=== PATIENT | male | born 1945 | race Caucasian/White ===

== ENCOUNTER 2017-08-09 06:20 | Day surgery (SDC) | payer BC ==
[~2017-08-09] VITALS: Ht 167.6 cm; Wt 76.2 kg
[~2017-08-09 06:20] MED LIST: DIOVAN HCT 1601 EACH PO; INVOKANA100 MG PO; JANUVIA100 MG PO; LANTUS SOL100 UNIT/1 SUB-Q; METFORMIN HCL500 MG PO; PROTONIX40 MG PO; SIMVASTATIN40 MG PO
--- NOTE | 2017-08-09 08:51 | NUR ---
08[facility]09/17 0851 [facility] ARRIVED IN PACU SLEEPY AND RESPONSIVE TO TACTILE STIMULI. BLOOD SUGAR 88 ON ARRIVAL. ABD SOFT.
--- NOTE | 2017-08-09 09:25 | NUR ---
ICED WATER GIVEN. PT WILL WAKE TO LOUD RN VOICE AND THEN FALLS QUICKLY BACK TO SLEEP. CALL LIGHT W/IN REACH.
--- NOTE | 2017-08-09 10:27 | NUR ---
PT AWAKE WHEN RN ENTERS THE ROOM. PT REPORTS HE IS "PRETTY CLOSE" TO BEING AWAKE ENOUGH TO LISTEN TO DC INSTRUCTIONS. WILL CONTINUE TO MONITOR.
--- NOTE | 2017-08-09 10:48 | NUR ---
PT REPORTS "I THINK I'M READY TO GO". DC INSTRUCTIONS GIVEN. PT VERBALIZES UNDERSTANDING. PT STANDS @ THE BS AND IS STEADY ON HIS FEET. PT GETTING DRESSED. HIS SPOUSE IS CALLED. PT UP TO BR W/RN STANDBY. PT AMBULATES WELL AND DENIES DIZZINESS.
--- NOTE | 2017-08-09 11:38 | OR ---
[facility] [address] [place], [place] [address] Signed DATE OF OPERATION: 08/09/2017 SURGEON: Anil Li MD PREOPERATIVE DIAGNOSES: 1. Anemia. 2. History of peptic ulcer disease 1991. 3. Esophageal dysphagia. 4. Possible esophageal diverticulum. POSTOPERATIVE DIAGNOSES: 1. Unable to intubate esophagus, even with large amounts of Versed and fentanyl. 2. Very long redundant difficult colon. 3. Moderate internal hemorrhoids. PROCEDURES PERFORMED: 1. Esophagogastroduodenoscopy discontinued. 2. Colonoscopy without biopsy. ESTIMATED BLOOD LOSS: None. INDICATIONS FOR PROCEDURE: Stefan is a 71-year-old gentleman, who was recently found to be anemic by his primary care provider. He spoke of a bleeding ulcer back in 1991, while he was on aspirin. He had upper endoscopy. At that time, the ulcer was cauterized. He said he has never had a previous colonoscopy. However, he talked about esophageal dysphagia more recently. He thinks there is a pocket in his esophagus that he has had for many years. It could be an esophageal diverticulum. He said he gets stuck most of the time and so he avoids meat. He said he wakes up easily during procedures, hence we made efforts to have this with an anesthesia provider. In addition, he has post-polio syndrome. However, we were not able to do that today. I think in the future it would be good for Stefan based on what we found today. In the office, I gave him pamphlets on both upper and lower endoscopy. We looked at those together along with the risks including, but are not limited to gas bloating, crampy abdominal pain, bleeding, perforation, requiring surgery, and missed diagnosis. We also discussed the need for the IV conscious sedation. He had expressed understanding and wished to proceed. PROCEDURE NOTE: Stefan was taken into our endoscopy suite, given a total of 275 mcg of fentanyl, 14 mg of Electronically Signed By: ANIL LI MD 08/09/17 1138 PATIENT NAME: STEFAN POST OPERATIVE REPORT DATE OF : 47 REPORT #: [id number] PHYSICIAN: ANIL LI MD PCP: LENIN ADRIAN MD REPORT IS CONFIDENTIAL AND NOT TO BE RELEASED WITHOUT AUTHORIZATION [facility] [address] [place], [place] [address] Signed Versed. Most of that was actually given for his upper endoscopy. His posterior oropharynx had been anesthetized with Hurricaine spray. A bite block had been utilized for the case. We inserted our gastroscope into the posterior oropharynx. We could easily identify all his landmarks. We spent well over 5 minutes trying to pass the gastroscope down the esophagus. We were never able to intubate the esophagus. He was very resistant, would not open his esophagus even with large amounts of Versed and fentanyl. He continued to fight the whole time and so we finally abandoned the upper endoscopy. Consequently, he is going to need a barium swallow and afterwards reconsider an upper endoscopy with an anesthesia provider. Stefan was then rotated into the left lateral decubitus position. We maintained him on his IV sedation with the Versed and fentanyl. A digital rectal exam was performed and he has a small bit of indurated prostate gland, the right is more prominent than the left. After this, the adult colonoscope was introduced and advanced readily up to the splenic flexure. At that point, it became very difficult through the splenic flexure, transverse colon, and hepatic flexure. There is a very long redundant tortuous colon. It took significant amount of time and repositioning Stefan on the table as well as abdominal compression in order to advance the scope through the hepatic flexure. With a fair amount of effort, we finally made it down into the cecum itself. We could easily see the and the ileocecal valve. Unfortunately, his prep was moderate given his long redundant colon. In the future, he should probably double his prep. The scope was then slowly withdrawn. We saw no pathology throughout the entire colon or rectum. However, again it was very evident that he has a very long redundant tortuous colon. Once in the rectum, the scope had been retroflexed and he does have moderate internal hemorrhoid columns. After this, the gas was suctioned out. The colonoscope removed. Stefan tolerated the procedure well. RECOMMENDATIONS: I will see Stefan back in my office in 7 to 14 days to review his results. He will need a barium swallow. Afterwards, he can consider repeat upper endoscopy with an anesthesia provider. In addition, he would need to strongly consider double bowel prep in the future for any colonoscopies. MD KEITH Kramer/KAISERL /[id number] Electronically Signed By: ANIL LI MD 08/09/17 1138 PATIENT NAME: STEFAN POST OPERATIVE REPORT DATE OF : 47 REPORT #: [id number] PHYSICIAN: ANIL LI MD PCP: LENIN ADRIAN MD REPORT IS CONFIDENTIAL AND NOT TO BE RELEASED WITHOUT AUTHORIZATION [facility] [address] [place], [place] [address] Signed cc: Lenin Adrian MD Copies: LENIN ADRIAN MD ~ Electronically Signed By: ANIL LI MD 08/09/17 1138 PATIENT NAME: SINCERESTEFAN OPERATIVE REPORT DATE OF : 47 REPORT #: [id number] PHYSICIAN: ANIL LI MD PCP: LENIN ADRIAN MD REPORT IS CONFIDENTIAL AND NOT TO BE RELEASED WITHOUT AUTHORIZATION
== END 2017-08-09 10:50 | disposition home or self-care (01) ==
LOC: DS 06:20
PROVIDERS: Colon & Rectal Surgery
PROC: 0DJD8ZZ Inspection of Lower Intestinal Tract, Via Natural or Artificial Opening Endoscopic (ICD-10-PCS; principal; 2017-08-09 06:45)
PROC: 0DJ08ZZ Inspection of Upper Intestinal Tract, Via Natural or Artificial Opening Endoscopic (ICD-10-PCS; 2017-08-09 06:45)
DX: K64.8 Other hemorrhoids (principal); Q43.8 Other specified congenital malformations of intestine; R13.19 Other dysphagia; E11.22 Type 2 diabetes mellitus with diabetic chronic kidney disease; I12.9 Hypertensive chronic kidney disease with stage 1 through stage 4 chronic kidney disease, or unspecified chronic kidney disease; N18.3 Chronic kidney disease, stage 3 (moderate); D50.9 Iron deficiency anemia, unspecified; K21.0 Gastro-esophageal reflux disease with esophagitis; Z87.11 Personal history of peptic ulcer disease; Z79.899 Other long term (current) drug therapy; Z79.84 Long term (current) use of oral hypoglycemic drugs
CPT/HCPCS: 99153; G0500; J2250; J3010; J7120

== ENCOUNTER 2017-08-20 13:42 | Emergency (ER) | payer BC ==
[~2017-08-20] VITALS: Ht 167.6 cm; Wt 72.6 kg
[2017-08-20] MEDS ORDERED: CIPRO500 MG PO (16:02)
[2017-08-20] MEDS ORDERED: PYRIDIUM200 MG PO (16:02)
[2017-08-21] MEDS ORDERED: NORCO 5-325 TA1 EACH PO (01:44)
[2017-08-21] MEDS ORDERED: FLOMAX0.4 MG PO (01:51)
== END 2017-08-20 16:15 | disposition home or self-care (01) ==
LOC: ED 13:42
DX: N39.0 Urinary tract infection, site not specified (principal); E11.9 Type 2 diabetes mellitus without complications; I10 Essential (primary) hypertension; K21.9 Gastro-esophageal reflux disease without esophagitis; Z79.4 Long term (current) use of insulin; Z79.899 Other long term (current) drug therapy
CPT/HCPCS: 81001; 87088; 99283

== ENCOUNTER 2017-08-21 01:20 | Emergency (ER) | payer BC ==
[~2017-08-21] VITALS: Ht 167.6 cm; Wt 72.6 kg
[~2017-08-21 01:20] MED LIST changes: +CIPRO500 MG PO; +PYRIDIUM200 MG PO
[2017-08-21] MEDS ORDERED: NORCO 5-325 TA1 EACH PO (01:44)
[2017-08-21] MEDS ORDERED: FLOMAX0.4 MG PO (01:51)
== END 2017-08-21 01:58 | disposition home or self-care (01) ==
LOC: ED 01:20
DX: R30.0 Dysuria (principal); E11.9 Type 2 diabetes mellitus without complications; I10 Essential (primary) hypertension; E78.00 Pure hypercholesterolemia, unspecified; K21.9 Gastro-esophageal reflux disease without esophagitis; Z79.899 Other long term (current) drug therapy; Z79.4 Long term (current) use of insulin
CPT/HCPCS: 99283

== ENCOUNTER 2017-11-22 10:53 | Observation (INO) | payer MEDICARE, BC ==
[~2017-11-22] VITALS: Ht 167.6 cm; Wt 65.8 kg
--- OUTSIDE RECORDS SUMMARY | ~2017-11-22 | XMS | Encounter Summary ---
Demographics + + + | Address | [address] | | | [place] [address] | + + + | Home Phone | | + + + | Preferred Language | Unknown | + + + | Marital Status | | + + + | Christian Affiliation | Unknown | + + + | Race | Unknown | + + + | Ethnic Group | Unknown | + + + Author + + + | Author | [facility] | + + + | Organization | [facility] | + + + | Address | Unknown | + + + | Phone | Unavailable | + + + Support + + +---------+ + | Name | Relationship | Address | Phone | + + +---------+ + | Yuki Nguyen | ECON | Unknown | | + + +---------+ + Care Team Providers + +------+ + | Care Assignment Editor Name | Role | Phone | + +------+ + | Lenin Adrian MD | PCP | | + +------+ + Reason for Visit + + + | Reason | Comments | + + + | Cancer Follow Up | 1 month | + + + Encounter Details +--------+---------+ + + + | Date | Type | Department | Care Team | Description | +--------+---------+ + + + | 11/17/ | Office | [facility] | Gabriella, | Cancer of kidney, | | 2018 | Visit | Hematology and | Stephanie Dubon MD | right (HCC) (Primary | | | | Oncology [address] | Dx); Encounter for | | | | [address] | [place] | chemotherapy | | | | [place] | [address] | management | | | | [address] | | | | | | [phone] | | | +--------+---------+ + + + Social History + +-------+ +--------+------+ | Tobacco Use | Types | Packs/Day | Years | Date | | | | | Used | | + +-------+ +--------+------+ | Former Smoker | | | | | + +-------+ +--------+------+ + +---+---+---+ | Smokeless Tobacco: | | | | | Never Used | | | | + +---+---+---+ + + +---------+ + | Alcohol Use | Drinks/We | oz/Week | Comments | | | ek | | | + + +---------+ + | No | | | | + + +---------+ + + + + | Sex Assigned at | Date Recorded | | | | + + + | Not on file | | + + + as of this encounter Last Filed Vital Signs + + + + | Vital Sign | Reading | Time Taken | + + + + | Blood Pressure | 146/80 | 11/17/2017 10:12 AM PDT | + + + + | Pulse | 74 | 11/17/2017 10:12 AM PDT | + + + + | Temperature | 36.2 C (97.2 F) | 11/17/2017 10:12 AM PDT | + + + + | Respiratory Rate | 12 | 11/17/2017 10:12 AM PDT | + + + + | Oxygen Saturation | 96% | 11/17/2017 10:12 AM PDT | + + + + | Inhaled Oxygen | - | - | | Concentration | | | + + + + | Weight | 66.2 kg (146 lb) | 11/17/2017 10:12 AM PDT | + + + + | Height | 168.9 cm (5' 6.5") | 11/17/2017 10:12 AM PDT | + + + + | Body Mass Index | 23.21 | 11/17/2017 10:12 AM PDT | + + + + in this encounter Progress Notes Stephanie Quiroz MD - 11/17/2017 10:15 AM PDTFormatting of this note may be diffe rent from the original. [facility] Hematology & Oncology Oncology Progress Note Patient Name: ELICEO NGUYNE Date of : 1945 Age: 72 y.o. PCP: LENIN ADRIAN History of Present Illness MrJossue Nguyen is a pleasant 72 y.o. male here for further management of metastatic kidney cancer. Patient developed gross hematuria, and a CT scan of the chest abdomen and pelvis with IV co ntrast performed on 08/31/2017 it showed right renal mass measuring about 9.1 x 7.6 x 8.3 cm, exophytic and tumor filling the right renal vein into the infrahepatic IVC but not extending into the liver. Also, noted to have 16 and a 14 mm mass in the liver that is suspicious fo r metastatic disease. Also, multiple lung nodules are reported suspicious for metastatic di sease. He was referred to [facility] and underwent open right radical nephrectomy along with cava l thrombectomy, and excision of vena cava, grafting of vena cava and retroperitoneal lymph node dissection on 09/13/2017. Pathology from the mass showed clear cell renal cell carcinoma measuring 8.1 cm, Dilma gr mali 3, carcinoma invading renal hilum and renal vein, with carcinoma present at small vessel vascular invasion at hilar soft tissue resection margin, and all other margins were negativ e for malignancy. 2 lymph nodes negative for malignancy. Pathological stage p T3c N0. Reason for Office Visit/Interval History I initially saw him on 10/04/2017, and recommended completing the staging work up bone scan and imaging of the head, and to start therapy with sunitinib. Patient is unable to swallow medications and was started on sunitinib suspension. He has difficulty swallowing pills, an d followed with gastroenterology and underwent esophageal dilatation. Swallowing is better at this time. He has no new complaints otherwise. Cancer Stage Cancer Staging Cancer of kidney, right (HCC) Staging form: Kidney, AJCC 8th Edition - Clinical stage from 09/13/2017: Stage IV (cT3c, cN0, cM1) - Signed by Stephanie bowden MD on 10/04/2017 Oncology History No history exists. Medical History No Known Allergies Past Medical History Diagnosis Date Hypertension Malignant neoplasm (HCC) Polio Type 2 diabetes mellitus (HCC) Past Surgical History Procedure Laterality Date APPENDECTOMY ear ear implants LAPAROSCOPIC NEPHRECTOMY Right Family History Problem Relation Age of Onset Liver cancer Mother Cancer Mother Social History Social History Marital status: Spouse name: N/A Number of children: N/A Years of education: N/A Occupational History Not on file. Social History Main Topics Smoking status: Former Smoker Smokeless tobacco: Never Used Alcohol use No Drug use: No Sexual activity: Not on file Other Topics Concern Not on file Social History Narrative No narrative on file Patient's medical history above reviewed and updated on 11/17/2017 Medications Current Outpatient Prescriptions Medication Sig Dispense Refill aspirin 81 MG chewable tablet Take by mouth. Canagliflozin (INVOKANA PO) Take by mouth daily. Canagliflozin (INVOKANA) 100 MG tablet Take by mouth. insulin glargine (LANTUS SOLOSTAR) 100 UNIT/ML injection Inject into the skin. insulin glargine (LANTUS) 100 UNIT/ML injection Inject into the skin daily. metFORMIN (GLUCOPHAGE) 500 MG tablet Take 1500 mg by mouth every morning and 1000 mg by mouth every evening pantoprazole (PROTONIX) 40 MG tablet Take by mouth. simvastatin (ZOCOR) 40 MG tablet Take by mouth. SUNItinib (SUTENT) 37.5 MG capsule Take 1 capsule by mouth daily for 336 days. Take onc e daily x 4 weeks followed by a 2 week rest period. 28 capsule 11 Valsartan (DIOVAN PO) Take by mouth daily. valsartan-hydrochlorothiazide (DIOVAN-HCT) 160-12.5 MG per tablet Take by mouth. METFORMIN HCL PO Take by mouth 2 (two) times daily. ondansetron (ZOFRAN) 8 MG tablet Take 1 tablet by mouth every 8 (eight) hours as needed for Nausea. (Patient not taking: Reported on 11/17/2017) 40 tablet 1 Pantoprazole Sodium (PROTONIX PO) Take by mouth daily. prochlorperazine (COMPAZINE) 10 MG tablet Take 1 tablet by mouth every 6 (six) hours as needed for Nausea or Vomiting. (Patient not taking: Reported on 11/17/2017) 40 tablet 1 SIMVASTATIN PO Take by mouth daily. No current facility-administered medications for this visit. Medications reviewed and updated on 11/17/2017 Review of Systems Review of Systems Constitutional: Positive for fatigue (better). Negative for appetite change, fever and unex pected weight change. HENT: Negative for mouth sores and voice change. Trouble swallowing: improved after esophag eal dilatation. Respiratory: Negative for cough and shortness of breath. Cardiovascular: Negative for chest pain and palpitations. Gastrointestinal: Negative for abdominal pain, constipation, nausea and vomiting. Skin: Negative for rash. Neurological: Negative for seizures and headaches. Hematological: Negative for adenopathy. Does not bruise/bleed easily. Physical Exam BP 146/80 (BP Location: Right upper arm, Patient Position: Sitting) | Pulse 74 | Temp 97. 2 F (36.2 C) (Tympanic) | Resp 12 | Ht 1.689 m (5' 6.5") | Wt 66.2 kg (146 lb) | SpO 2 96% | BMI 23.21 kg/m ECOG Performance Status: 1 Physical Exam Constitutional: He appears well-developed and well-nourished. Neck: Neck supple. Cardiovascular: Normal rate and regular rhythm. Pulmonary/Chest: Effort normal and breath sounds normal. Abdomina/Gl: Soft. Bowel sounds are normal. He exhibits no mass. Lymphadenopathy: He has no cervical adenopathy. Skin: Skin is warm and dry. Labs and Imaging Admission on 10/31/2017, Discharged on 10/31/2017 Component Date Value Ref Range Status WBC 10/31/2017 7.10 3.80 - 11.00 K/uL Final RBC 10/31/2017 4.50 4.20 - 5.70 M/uL Final HGB 10/31/2017 10.5* 13.2 - 17.0 g/dL Final HCT 10/31/2017 34.1* 39.0 - 50.0 % Final MCV 10/31/2017 75.8* 80.0 - 100.0 fl Final MCH 10/31/2017 23.2* 27.0 - 34.0 pg Final MCHC 10/31/2017 30.6* 32.0 - 35.5 g/dL Final RDW SD 10/31/2017 48.1 37 - 53 fl Final PLT 10/31/2017 383 150 - 400 K/uL Final MPV 10/31/2017 9.0 fl Final DIFF TYPE 10/31/2017 AUTOMATED Final NEUTROPHILS 10/31/2017 62.52 % Final LYMPHOCYTES 10/31/2017 23.13 % Final MONOCYTES 10/31/2017 9.28 % Final EOSINOPHILS 10/31/2017 4.38 % Final BASOPHILS 10/31/2017 0.69 % Final NEUTROPHILS ABS 10/31/2017 4.44 1.90 - 7.40 K/uL Final LYMPHOCYTES ABS 10/31/2017 1.64 1.00 - 3.90 K/uL Final MONOCYTES ABS 10/31/2017 0.66 0.00 - 0.80 K/uL Final EOSINOPHILS ABS 10/31/2017 0.31 0.00 - 0.50 K/uL Final BASOPHILS ABS 10/31/2017 0.05 0.00 - 0.10 K/uL Final MORPHOLOGY 10/31/2017 1+ Corrected Comment: POIK 2+ MICRO 1+ HYPO NORMAL PLT MORPH Platelet Estimate 10/31/2017 ADEQUATE Final Diff Comment 10/31/2017 SLIDE SCANNED, AGREES WITH AUTOMATED RESULTS. Final Testing performed at [facility] [place] [address];[place] [address] SODIUM 10/31/2017 139 135 - 145 mmol/L Final POTASSIUM 10/31/2017 4.2 3.5 - 4.9 mmol/L Final CHLORIDE 10/31/2017 104 99 - 109 mmol/L Final CO2 10/31/2017 28 23 - 32 mmol/L Final ANION GAP AGAP 10/31/2017 12 5 - 20 mmol/L Final GLUCOSE 10/31/2017 128* 65 - 99 mg/dL Final BUN 10/31/2017 23 8 - 25 mg/dL Final CREATININE 10/31/2017 1.3 0.70 - 1.30 mg/dL Final BUN/CREAT 10/31/2017 18 Final CALCIUM 10/31/2017 9.3 8.5 - 10.5 mg/dL Final TOTAL PROTEIN 10/31/2017 8.7* 6.3 - 8.2 g/dL Final Albumin 10/31/2017 3.8 3.3 - 4.8 g/dL Final GLOBULIN 10/31/2017 5.0* 1.3 - 4.9 g/dL Final A/G 10/31/2017 0.8* 1.0 - 2.4 Final TBIL 10/31/2017 0.3 0.1 - 1.5 mg/dL Final ALK PHOS 10/31/2017 123* 35 - 115 U/L Final AST 10/31/2017 11 10 - 45 U/L Final ALT 10/31/2017 16 10 - 65 U/L Final EGFR 10/31/2017 54* >60 mL/min/1.73m2 Final Comment: GFR <60: CHRONIC KIDNEY DISEASE, IF FOUND OVER A 3 MONTH PERIOD. GFR <15: KIDNEY FAILURE. FOR AMERICANS, MULTIPLY THE CALCULATED GFR BY 1.210. This eGFR is calculated using the MDRD IDMS traceable equation. Testing performed at [facility];[address] [place] [id number] MAGNESIUM 10/31/2017 2.5* 1.7 - 2.4 mg/dL Final Testing performed at [facility];[address] [place] [id number] INR 10/31/2017 1.0 Final Comment: REFERENCE RANGE: 0.9 - 1.2 NON-ANTICOAGULATED 2.0 - 3.0 ALL OTHER THERAPEUTIC INDICATIONS 2.5 - 3.5 MECHANICAL HEART VALVES, RECURRENT OR SYSTEMIC EMBOLISM Testing performed at [facility];[address] [place] [id number] APTT 10/31/2017 30 23 - 32 seconds Final Testing performed at [facility];[address] [place] [address] LIPASE 10/31/2017 146 73 - 393 U/L Final Testing performed at [facility];[address] [place] [address] COLOR UA 10/31/2017 COLORLESS Final CLARITY 10/31/2017 CLEAR Final Specific [place], UA 10/31/2017 1.006 1.002 - 1.030 Final LEUKOCYTE ESTERASE 10/31/2017 NEGATIVE NEGATIVE Final NITRITE 10/31/2017 NEGATIVE NEGATIVE Final UROBILINOGEN 10/31/2017 NORMAL <1.1 mg/dL Final PROTEIN 10/31/2017 NEGATIVE NEGATIVE mg/dL Final PH,URINE 10/31/2017 7.0 5.0 - 8.0 Final BLOOD 10/31/2017 NEGATIVE NEGATIVE Final KETONES 10/31/2017 NEGATIVE NEGATIVE mg/dL Final BILIRUBIN 10/31/2017 NEGATIVE NEGATIVE Final GLUCOSE 10/31/2017 >500* NEGATIVE mg/dL Final Testing performed at [facility];[address] [place] [address];[place] [address] Assessment Mr. Eliceo Nguyen is a pleasant 72 y.o. male with history of diabetes, hyperlipidemia, hypertension, presented with metastatic kidney cancer status post right radical nephrectomy and excision of IVC tumor thrombus. I reviewed the various treatment options for treatment of metastatic kidney cancer. Treatm ent options include combination immunotherapy with Nivolumab and ipilumumab given every 3 we eks for 4 times followed by Nivolumab maintenance. Reviewed side effects of immunotherapy. Also reviewed the option of starting oral TKI therapy with either pazopinib or sunitinib. Reviewed side effects of the medications including but not limited to fatigue, pneumonitis, diarrhea, hypertension, rash, LFT elevations, decreased heart function, visual disturbances, headaches, acute abnormalities, hand-foot syndrome with burning sensation in the hands and feet, thrombocytopenia, anemia, among some of the side effects of therapy. After reviewing all the options patient is wanting to try oral TKI therapy. I reviewed the option of pazopi nib and sunitinib therapy. Patient has difficulty swallowing pills, and he was started on t reatment with oral sunitinib suspension. Given elderly age/performance status he was starte d on sunitinib 37.5 mg, 4 weeks on and 2 weeks off regimen. Plan 1. CT scan of the head without contrast performed on 10/31/2017. MRI of the brain could no t be performed because of metal in the body, and IV contrast could not be given for chronic kidney disease. No obvious evidence of metastatic disease in the head was noted. CT scan o f the chest without contrast performed on 10/31/2017 showed multiple lung nodules and bilatera l lungs suggestive of metastatic disease. These results were reviewed with the patient cricket doe 2. He started with chemotherapy about couple of weeks ago and is tolerating it well withou t any significant side effects. Reviewed some of the common side effects including fatigue, diarrhea, thrombocytopenia, hand-foot syndrome, hypertension, among many other side effects as listed above. Patient understands and will watch out for the above-mentioned side effec ts. He will call us if needed. 3. Follow-up with blood work every 2 weeks over the next 2-3 months in follow-up with me naman blankenship while on TKI therapy. All the patient's questions were answered to his satisfaction. Greater than 25 minutes wer e spent examining the patient, review of medical records, counseling, coordination of care, and CPOE. More than 50% of that time was spent in [id number] encounter. Stephanie Quiroz MD [facility] Hematology & Oncology 11/17/2017 Portions of this chart may have been created with voice recognition software. Occasional wr adnielle-word or "sound-alike" substitutions may have occurred, even after review, due to the inh erent limitations of voice recognition software. Please read the chart carefully and recogni ze, using context, where these substitutions have occurred. Personal communication is reques domenica for any clarifications. in this encounter Plan of Treatment +--------+---------+ + + + | Date | Type | Specialty | Care Team | Description | +--------+---------+ + + + | 12/21/ | Office | Hematology and | Gabriella, | | | 2017 | Visit | Oncology | Stephanie Dubon MD | | | | | | [address] | | | | | | [place] | | | | | | [address] | | | | | | | | +--------+---------+ + + + + +--------+ + + | Name | Priori | Associated Diagnoses | Order Schedule | | | ty | | | + +--------+ + + | Comprehensive metabolic panel | Routin | Cancer of kidney, | Every 2 Weeks for 6 | | | e | right (HCC) | Occurrences starting | | | | Encounter for | 11/17/2017 until | | | | chemotherapy | 11/17/2018 | | | | management | | + +--------+ + + | CBC W/Auto Diff (Reflex to | Routin | Cancer of kidney, | Every 2 Weeks for 6 | | Manual) | e | right (HCC) | Occurrences starting | | | | Encounter for | 11/17/2017 until | | | | chemotherapy | 11/17/2018 | | | | management | | + +--------+ + + as of this encounter Visit Diagnoses + + | Diagnosis | + + | Cancer of kidney, right (HCC) - Primary | + + | Encounter for chemotherapy management | + +
--- OUTSIDE RECORDS SUMMARY | ~2017-11-22 | XMS | Encounter Summary ---
Demographics + + + | Address | [address] | | | [place] [address] | + + + | Home Phone | | + + + | Preferred Language | Unknown | + + + | Marital Status | | + + + | Jehovah'S Witness Affiliation | LDS | + + + | Race | White | + + + | Ethnic Group | Not or | + + + Author + + + | Author | [facility] | + + + | Organization | [facility] | + + + | Address | Unknown | + + + | Phone | Unavailable | + + + Support + + + + + | Name | Relationship | Address | Phone | + + + + + | MILLY NGUYEN | ECON | [address] | | | | | [place], | | | | | [place] [address] | | + + + + + | Holly Burrell | ECON | Unknown | | + + + + + Care Team Providers + +------+ + | Care Shaper Setter Name | Role | Phone | + +------+ + | Jeremy Adrian MD | PCP | | + +------+ + Reason for Visit + + + | Reason | Comments | + + + | Care Management | Record Request | + + + Encounter Details +--------+ + + + + | Date | Type | Department | Care Team | Description | +--------+ + + + + | 09/02/ | Telephone | Urology at [facility] | Alison Garcia | Care Management | | 2018 | | [address] | [address] | (Record Request) | | | | Mail Code: [id number] | [address] | | | | | [facility] | [place], [place] | | | | | and | [address] | | | | | Floor [place], [place] | [phone] | | | | | [address] | | | | | | [phone] | | | +--------+ + + + + Social History + + + +--------+ + | Tobacco Use | Types | Packs/Day | Years | Date | | | | | Used | | + + + +--------+ + | Former Smoker | Cigarettes | 0.2 | 1 | Quit: 1967 | + + + +--------+ + + +---+---+---+ | Smokeless Tobacco: | | | | | Never Used | | | | + +---+---+---+ + + +---------+ + | Alcohol Use | Drinks/We | oz/Week | Comments | | | ek | | | + + +---------+ + | No | 0 | 0.0 | | | | Standard | | | | | drinks or | | | | | | | | | | equivalen | | | | | t | | | + + +---------+ + + + + | Sex Assigned at | Date Recorded | | | | + + + | Not on file | | + + + as of this encounter Plan of Treatment +--------+ + + + + | Date | Type | Specialty | Care Team | Description | +--------+ + + + + | 12/20/ | Diagnostic | [employer] | Nils Woody, | | | 2017 | Visit | | [address] | | | | | [facility] | | | | | | [place] | | | | | | [id number] | | | | | | | | +--------+ + + + + as of this encounter Visit Diagnoses Not on filein this encounter"
--- OUTSIDE RECORDS SUMMARY | ~2017-11-22 | XMS | Encounter Summary ---
Demographics + + + | Address | [address] | | | [place] [address] | + + + | Home Phone | | + + + | Preferred Language | Unknown | + + + | Marital Status | | + + + | Hinduism Affiliation | Unknown | + + + | Race | Unknown | + + + | Ethnic Group | Unknown | + + + Author + + + | Author | [facility] | + + + | Organization | [facility] | + + + | Address | Unknown | + + + | Phone | Unavailable | + + + Support + + +---------+ + | Name | Relationship | Address | Phone | + + +---------+ + | Yuki Nguyen | ECON | Unknown | | + + +---------+ + Care Team Providers + +------+ + | Care Line Worker Name | Role | Phone | + +------+ + PCP | Unavailable | + +------+ + Encounter Details +--------+ + + + + | Date | Type | Department | Care Team | Description | +--------+ + + + + | 10/21/ | Telephone | [facility] | Jessica Kraus, | | | 2017 | | Hematology and | MUCKER OPERATOR | | | | | Oncology [address] | | | | | [address] | | | | | | [place] | | | | | | [address] | | | | | | [phone] | | | +--------+ + + + + Social History + +-------+ [...] as of this encounter Plan of Treatment +--------+---------+ + + + | Date | Type | Specialty | Care Team | Description | +--------+---------+ + + + | 12/21/ | Office | Hematology and | Gabriella, | | | 2017 | Visit | Oncology | Stephanie Dubon MD | | | | | | [address] | | | | | | [place] | | | | | | [id number] | | | | | | | | +--------+---------+ + + + as of this encounter Visit Diagnoses Not on filein this encounter"
--- OUTSIDE RECORDS SUMMARY | ~2017-11-22 | XMS | Encounter Summary ---
Demographics + + + | Address | [address] | | | [place] [address] | + + + | Home Phone | | + + + | Preferred Language | Unknown | + + + | Marital Status | | + + + | Voodoo Affiliation | Unknown | + + + | Race | Unknown | + + + | Ethnic Group | Unknown | + + + Author + + + | Author | [facility] | + + + | Organization | [facility] | + + + | Address | Unknown | + + + | Phone | Unavailable | + + + Support + + +---------+ + | Name | Relationship | Address | Phone | + + +---------+ + | Yuki Nguyen | ECON | Unknown | | + + +---------+ + Care Team Providers + +------+ + | Care Risk Officer Name | Role | Phone | + +------+ + PCP | Unavailable | + +------+ + Encounter Details +--------+ + + + + | Date | Type | Department | Care Team | Description | +--------+ + + + + | 10/21/ | Telephone | [facility] | Jessica Kraus, | | | 2017 | | Hematology and | [facility] | | | | | Oncology [address] | | | | [address] | | | | | | [place] | | | | | | [address] | | | | | | [phone] | | | +--------+ + + + [...] [place] | | | | | | [id number] | | | | | | | | +--------+---------+ + + + as of this encounter Visit Diagnoses Not on filein this encounter"
--- OUTSIDE RECORDS SUMMARY | ~2017-11-22 | XMS | Encounter Summary ---
Demographics + + + | Address | [address] | | | [place] [address] | + + + | Home Phone | | + + + | Preferred Language | Unknown | + + + | Marital Status | | + + + | Holiness Affiliation | LDS | + + + | Race | White | + + + | Ethnic Group | Not or | + + + Author + + + | Author | [facility] | + + + | Organization | [facility] | + + + | Address | Unknown | + + + | Phone | Unavailable | + + + Support + + + + + | Name | Relationship | Address | Phone | + + + + + | MILLY NGUYEN | ECON | [address] | | | | | [place], | | | | | [place] [address] | | + + + + + | Holly Burrell | ECON | Unknown | | + + + + + Care Team Providers + +------+ + | Care Ticket Puller Name | Role | Phone | + +------+ + | Jeremy Adrian MD | PCP | | + +------+ + Reason for Visit + + + | Reason | Comments | + + + | Insurance | Disability claim | | Authorization | | + + + Encounter Details +--------+ + + + + | Date | Type | Department | Care Team | Description | +--------+ + + + + | 11/18/ | Telephone | Urology at [facility] | Cristy Rubin MD | Insurance | | 2018 | | [address] | [address] | Authorization | | | | Mail Code: [id number] | [place], [place] | (Disability claim) | | | | [facility] | [address] | | | | | and | [phone] | | | | | Floor [place], [place] | | | | | | [address] | | | | | | [phone] | | | +--------+ + + + + Social History + + + +--------+ + | Tobacco Use | Types | Packs/Day | Years | Date | | | | | Used | | + + + +--------+ + | Former Smoker | Cigarettes | 0.2 | 1 | Quit: 1998 | + + + +--------+ + + [...] + + + as of this encounter Functional Status + + + + | Functional Status | Response | Date of Assessment | + + + + | Because of a physical, mental, or emotional | No | 09/14/2017 | | condition, do you have serious difficulty | | | | doing errands alone such as visiting the | | | | doctor? | | | + + + + + + + + | Cognitive Status | Response | Date of Assessment | + + + + | Because of a physical, mental, or emotional | No | 09/14/2017 | | condition, do you have serious difficulty | | | | concentrating, remembering, or making | | | | decisions? (5 years old or older) | | | + + + + as of this encounter Plan of Treatment +--------+ + + + + | Date | Type | Specialty | Care Team | Description | +--------+ + + + + | 12/20/ | Diagnostic | Deburr Technician | Nils Woody, | | | 2017 | Visit | | [address] | | | | | [address] | | | | | | [place], [place] | | | | | | [phone] | | | | | | | | +--------+ + + + + as of this encounter Visit Diagnoses Not on filein this encounter"
--- OUTSIDE RECORDS SUMMARY | ~2017-11-22 | XMS | Encounter Summary ---
Demographics + + + | Address | [address] | | | [place] [address] | + + + | Home Phone | | + + + | Preferred Language | Unknown | + + + | Marital Status | | + + + | Baptist Affiliation | LDS | + + + | Race | White | + + + | Ethnic Group | Not or | + + + Author + + + | Author | [facility] | + + + | Organization | [facility] | + + + | Address | Unknown | + + + | Phone | Unavailable | + + + Support + + + + + | Name | Relationship | Address | Phone | + + + + + | MILLY NGUYEN | ECON | [address] | | | | | [place], | | | | | [place] [address] | | + + + + + | Holly Burrell | ECON | Unknown | | + + + + + Care Team Providers + +------+ + | Care Spinning Bath Patroller Name | Role | Phone | + +------+ + | Jeremy Adrian MD | PCP | | + +------+ + Encounter Details +--------+------+ + + + | Date | Type | Department | Care Team | Description | +--------+------+ + + + | 10/06/ | Lab | Laboratory at [facility] | | Right renal mass | | 2018 | | 3rd Floor [address] | | | | | | [address] [place], | | | | | | [place] [address] | | | | | | [phone] | | | +--------+------+ + + + Social History + + [...] + + | 12/20/ | 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 | + +--------+ + + + | [facility] - COMPLETE | Routin | 10/06/2017 | Right renal mass | Results for this | | METABOLIC SET | e | 7:32 AM | | procedure are in the | | | | PDT | | results section. | + +--------+ + + + | ANTIBODY SCREEN | Routin | 10/06/2017 | Right renal mass | Results for this | | | e | 7:32 AM | | procedure are in the | | | | PDT | | results section. | + +--------+ + + + | TYPE AND SCREEN | Routin | 10/06/2017 | Right renal mass | Results for this | | | e | 7:32 AM | | procedure are in the | | | | PDT | | results section. | + +--------+ + + + | ABO & RH TYPE | Routin | 10/06/2017 | Right renal mass | Results for this | | | e | 7:32 AM | | procedure are in the | | | | PDT | | results section. | + +--------+ + + + in this encounter Results ANTIBODY SCREEN (10/06/2017 7:32 AM) + + + + + | Component | Value | Ref Range | Performed At | + + + + + | Antibody Screen | Negative | | [facility] | | | | | SERVICES, | | | | | TRANSFUSION | | | | | MEDICINE | + + + + + + + | Specimen | + + | Blood - Blood | + + + + + + + | Performing | Address | City/State/Zipcode | Phone Number | | Organization | | | | + + + + + | [facility] | [address] | [place] [address] | | | SERVICES, | [address] | | | | TRANSFUSION MEDICINE | | | | + + + + + ABO & RH TYPE (10/06/2017 7:32 AM) + + + + + | Component | Value | Ref Range | Performed At | + + + + + | ABO Group | A | | [facility] | | | | | SERVICES, | | | | | TRANSFUSION | | | | | MEDICINE | + + + + + | Rh Type | Positive | | [facility] | | | | | SERVICES, | | | | | TRANSFUSION | | | | | MEDICINE | + + + + + + + | Specimen | + + | Blood - Blood | + + + + + + + | Performing | Address | City/State/Zipcode | Phone Number | | Organization | | | | + + + + + | [facility] | [address] | [place] [address] | | | SERVICES, | [address] | | | | TRANSFUSION MEDICINE | | | | + + + + + [facility] - COMPLETE METABOLIC SET (10/06/2017 7:32 AM) + + + + + | Component | Value | Ref Range | Performed At | + + + + + | GLUCOSE, PLASMA | 81 | 70 - 99 mg/dL | [facility] | | (LAB) | | | SERVICES, | | | | | [facility] | | | | | [facility] + | | | | | HEALING | + + + + + | BUN, PLASMA (LAB) | 20 | 6 - 20 mg/dL | [facility] | | | | | SERVICES, | | | | | [facility] | | | | | [facility] + | | | | | HEALING | + + + + + | CREATININE PLASMA | 1.40 (H) | 0.70 - 1.30 mg/dL | [facility] | | (LAB) | | | SERVICES, | | | | | [facility] | | | | | [facility] + | | | | | HEALING | + + + + + | SODIUM, PLASMA (LAB) | 137 | 134 - 143 mmol/L | [facility] | | | | | SERVICES, | | | | | [facility] | | | | | [facility] + | | | | | HEALING | + + + + + | POTASSIUM, PLASMA | 5.2 (H) | 3.4 - 5.0 mmol/L | [facility] | | (LAB) | | | SERVICES, | | | | | [facility] | | | | | [facility] + | | | | | HEALING | + + + + + | CHLORIDE, PLASMA | 101 | 97 - 108 mmol/L | [facility] | | (LAB) | | | SERVICES, | | | | | [facility] | | | | | [facility] + | | | | | HEALING | + + + + + | TOTAL CO2, PLASMA | 26 | 22 - 29 mmol/L | [facility] | | (LAB) | | | SERVICES, | | | | | [facility] | | | | | [facility] + | | | | | HEALING | + + + + + | CALCIUM, PLASMA | 9.8 | 8.6 - 10.2 mg/dL | [facility] | | (LAB) | | | SERVICES, | | | | | [facility] | | | | | [facility] + | | | | | HEALING | + + + + + | BILIRUBIN TOTAL | 0.6 | 0.3 - 1.2 mg/dL | [facility] | | | | | SERVICES, | | | | | [facility] | | | | | [facility] + | | | | | HEALING | + + + + + | TOTAL PROTEIN, | 8.2 (H) | 6.1 - 7.9 g/dL | [facility] | | PLASMA (LAB) | | | SERVICES, | | | | | [facility] | | | | | [facility] + | | | | | HEALING | + + + + + | ALBUMIN, PLASMA | 3.6 | 3.5 - 4.7 g/dL | [facility] | | (LAB) | | | SERVICES, | | | | | [facility] | | | | | [facility] + | | | | | HEALING | + + + + + | ALK PHOS | 89 | 43 - 92 U/L | [facility] | | | | | SERVICES, | | | | | [facility] | | [facility] | [facility] + | | | | | HEALING | + + + + + | AST(SGOT) | 17 | <=41 U/L | [facility] | | | | | SERVICES, | | | | | [facility] | | | | | [facility] + | | | | | HEALING | + + + + + | ALT (SGPT) | 15 | <=60 U/L | [facility] | | | | | SERVICES, | | | | | [facility] | | | | | [facility] + | | | | | HEALING | + + + + + | ANION GAP | | 4 - 11 mmol/L | [facility] | | | | | SERVICES, | | | | | [facility] | | | | | [facility] + | | | | | HEALING | + + + + + | ANION GAP(ALB | | 4 - 11 mmol/L | [facility] | | CORRECTED) | | | SERVICES, | | | | | [facility] | | | | | [facility] + | | | | | HEALING | + + + + + + + | Specimen | + + | Blood - Blood | + + + + + + + | Performing | Address | City/State/Zipcode | Phone Number | | Organization | | | | + + + + + | [email or web address] | [address] | [place] [address] | | | SERVICES, [facility] | | | | | [facility] + HEALING | | | | + + + + + [facility] - CBC ONLY (10/06/2017 7:32 AM) + + + + + | Component | Value | Ref Range | Performed At | + + + + + | WHITE CELL COUNT | 6.09 | 3.50 - 10.80 K/cu mm | [facility] | | | | | SERVICES, | | | | | [facility] | | [facility] | [facility] + | | | | | HEALING | + + + + + | RED CELL COUNT | 4.10 (L) | 4.50 - 6.00 M/cu mm | [facility] | | | | | SERVICES, | | | | | [facility] | | | [facility] + | | | | | HEALING | + + + + + | HEMOGLOBIN | 9.6 (L) | 13.5 - 17.5 g/dL | [facility] | | | | | SERVICES, | | | | | [facility] | [facility] | [facility] + | | | | | HEALING | + + + + + | HEMATOCRIT | 31.7 (L) | 41.0 - 53.0 % | [facility] | | | | | SERVICES, | | | | | [facility] | [facility] | [facility] + | | | | | HEALING | + + + + + | MCV | 77.3 (L) | 80.0 - 100.0 fL | [facility] | | | | | SERVICES, | | | | | [facility] | | [facility] + | | | | | HEALING | + + + + + | MCHC | 30.3 (L) | 32.0 - 36.0 g/dL | [facility] | | | | | SERVICES, | | | | | [facility] | | [facility] + | | | | | HEALING | + + + + + | RDW SD | 45.1 | 35.1 - 46.3 fL | [facility] | | | | | SERVICES, | | | | | [facility] | [facility] + | | | | | [facility]ALING | + + + + + | PLATELET COUNT | 451 (H) | 150 - 400 K/cu mm | [facility] | | | | | SERVICES, | | | | | [facility] | | [facility] + | | | | | HEALING | + + + + + | MPV | 10.7 | 9.7 - 12.3 fL | [facility] | | | | | SERVICES, | | | | | [facility] | | | [facility] | [facility] + | | | | | HEALING | + + + + + + + | Specimen | + + | Blood - Blood | + + + + + + + | Performing | Address | City/State/Zipcode | Phone Number | | Organization | | | | + + + + + | [facility] | [address] | [place] [address] | | | SERVICES, [facility] | | | | | [facility] + HEALING | | | | + + + + + in this encounter Visit Diagnoses + + | Diagnosis | + + | Right renal mass | + + | Unspecified disorder of kidney and ureter | + +"
--- OUTSIDE RECORDS SUMMARY | ~2017-11-22 | XMS | Encounter Summary ---
Demographics + + + | Address | [address] | | | [place] [address] | + + + | Home Phone | | + + + | Preferred Language | Unknown | + + + | Marital Status | | + + + | Adventist Affiliation | LDS | + + + | Race | White | + + + | Ethnic Group | Not or | + + + Author + + + | Author | [facility] | + + + | Organization | [facility] | + + + | Address | Unknown | + + + | Phone | Unavailable | + + + Support + + + + + | Name | Relationship | Address | Phone | + + + + + | MILLY NGUYEN | ECON | [address] | | | | | [place], | | | | | [place] [address] | | + + + + + | Holly Burrell | ECON | Unknown | | + + + + + Care Team Providers + +------+ + | Care Sql Server Bi Developer Name | Role | Phone | + +------+ + | Jeremy Adrian MD | PCP | | + +------+ + Reason for Visit + + + | Reason | Comments | + + + | Social work | | | consultation | | + + + Encounter Details +--------+ + + + + | Date | Type | Department | Care Team | Description | +--------+ + + + + | 10/31/ | Telephone | SOCIAL WORK | Nabila Cavanaugh | Social work | | 2018 | | [facility] [address] | [address] | consultation | | | | [facility] | [address] [place], | | | | | [facility] Mailcode: [facility] | [place] [address] | | | | | [place], [place] | | | | | | [address] | | | | | | [phone] | | | +--------+ + + + + Social History + + + +--------+ + | Tobacco Use | Types | Packs/Day | Years | Date | | | | | Used | | + + + +--------+ + | Former Smoker | Cigarettes | 0.2 | 1 | Quit: 1997 | + + + +--------+ + + [...] + + | 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
--- OUTSIDE RECORDS SUMMARY | ~2017-11-22 | XMS | Encounter Summary ---
Demographics + + + | Address | [address] | | | [place] [address] | + + + | Home Phone | | + + + | Preferred Language | Unknown | + + + | Marital Status | | + + + | Scientology Affiliation | Unknown | + + + | Race | Unknown | + + + | Ethnic Group | Unknown | + + + Author + + + | Author | [email or web address] | + + + | Organization | [email or web address] | + + + | Address | Unknown | + + + | Phone | Unavailable | + + + Support + + +---------+ + | Name | Relationship | Address | Phone | + + +---------+ + | Yuki Nguyen | ECON | Unknown | | + + +---------+ + Care Team Providers + +------+ + | Care Engineer Specialist Name | Role | Phone | + +------+ + | Jeremy Adrian MD | PCP | | + +------+ + Reason for Visit +--------+ + | Reason | Comments | +--------+ + | Other | CT HEAD, [facility] | +--------+ + Encounter Details +--------+ + + + + | Date | Type | Department | Care Team | Description | +--------+ + + + + | 10/31/ | Documentati | [facility] | Gabriella, | Other (CT HEAD, DR. | | 2018 | on Only | Hematology and | Stephanie Dubon MD | [facility] | | | | Oncology [address] | [place] ) | | | | [address] | [place], [place] | | | | | [place], [place] | [address] | | | | | [address] | | | | | | [phone] | | | +--------+ + + + [...] [place] | | | | | | [address] | | | | | | | | +--------+---------+ + + + as of this encounter Visit Diagnoses Not on filein this encounter"
--- OUTSIDE RECORDS SUMMARY | ~2017-11-22 | XMS | Encounter Summary ---
Demographics + + + | Address | [address] | | | [place] [address] | + + + | Home Phone | | + + + | Preferred Language | Unknown | + + + | Marital Status | | + + + | Sikh Affiliation | LDS | + + + | Race | White | + + + | Ethnic Group | Not or | + + + Author + + + | Author | [facility] | + + + | Organization | [facility] | + + + | Address | Unknown | + + + | Phone | Unavailable | + + + Support + + + + + | Name | Relationship | Address | Phone | + + + + + | MILLY NGUYEN | ECON | [address] | | | | | [place], | | | | | [place] [address] | | + + + + + | Holly Burrell | ECON | Unknown | | + + + + + Care Team Providers + +------+ + | Care Corporate Security Manager Name | Role | Phone | + +------+ + | Jeremy Adrian MD | PCP | | + +------+ + Reason for Visit Speech Therapy (Routine) + +--------+ + + + + | Status | Reason | Specialty | Diagnoses / | Referred By | Referred To | | | | | Procedures | Contact | Contact | + +--------+ + + + + | Authorized | | Speech | Diagnoses | [place], | Ent Speech | | | | Therapy | Dysphagia, | Mario R, | [facility] [address] | | | | | unspecified | [address] | [address] | | | | | type | [address] | Mail Code: | | | | | Procedures | [address] | [facility] | | | | | SPEECH | [place], [place] | for Health | | | | | THERAPY | [address] | and Healing, | | | | | REFERRAL | Phone: | [address] Floor | | | | | | [phone] | [place], [place] | | | | | | Fax: | [address] | | | | | | [phone] | Phone: | | | | | | | [phone] | | | | | | | Fax: | | | | | | | [phone] | + +--------+ + + + + Encounter Details +--------+ + + + + | Date | Type | Department | Care Team | Description | +--------+ + + + + | 10/21/ | Diagnostic | Otolaryngology | Rm, | | | 2018 | Visit | Speech Therapy | AARON Ramires [address] | | | | | Services at [facility] | [address] | | | | | [address] | [address] [place], [place] | | | | | [facility] | [address] | | | | | Mailcode: [id number] | | | | | | Physician's Mick | | | | | | [place], [place] | | | | | | [address] | | | | | | [phone] | | | +--------+ + + + [...] + + + as of this encounter Progress Keyla Emery, AARON - 10/21/2017 3:00 PM PDTFormatting of this note may be different from the original. Clinic: [facility] Referring Physician: Mario Guardado MD [address] [place] [address] Authorizing provider: Cristy Delarosa MD PCP: Jeremy Adrian MD Medical Diagnosis: 1. Dysphagia, pharyngoesophageal phase Date of Onset for This Diagnosis: 09/17/17 Treatment Diagnosis: 1. Dysphagia, pharyngoesophageal phase Start of Care Date: 10/21/17 Duration of session: 60 minutes SUBJECTIVE: The patient arrived today accompanied by his son, who stayed in the waiting iban m during the evaluation. REASON FOR REFERRAL: Stefan Nguyen is a 72 y.o. male patient of Mario Guardado MD seen for evaluation of his swallowing complaints. DESCRIPTION OF PROBLEM: When asked to describe his swallowing problems, the patient reporte d that his swallowing is "fine" and that he does not really have any significant swallow dif ficulty apart from being unable to swallow large pills (which he crushes). Upon further disc ussion, the patient reported that he has been limiting his diet to mostly pureed foods with any liquids, and feels like his swallowing has in fact worsened since his recent discharge f rom the hospital. He suggested that he has had swallow problems for so long that he has just "gotten used to it". He recalls having problems swallowing beginning at about age 15-16 yea rs old, when he reports he "swallowed a dime and did not have it removed for 2-3 years". He reports about 1-2 months ago, he was eating a mostly regular diet, including a breakfast bur kristal he often bought at work, but now he cannot eat the breakfast burrito and is eating "mos tly creamy soups". He feels like foods/liquids "hang up" at the level of the lower sternum. The patient denies choking on foods/liquids, regurgitation, recent PNA/URI, difficulty chew ing, or GERD symptoms. The patient was hospitalized from 09/13/17-09/17/17. Per discharge summary: Diagnoses Principal Final Diagnosis: 1. Right renal mass, IVC thrombus Additional Diagnoses: Procedures 1. Open right radical nephrectomy and caval thrombectomy 2. Excision of vena cava 3. Grafting of vena cava (by Dr. Mathews) 4. Retroperitoneal lymph node dissection (paracaval dissection) ----- Significant Findings, Treatment, and Complications, and Brief Hospital Course: Brief Hospital Course Stefan Nguyen is a 71 y.o. male with above history who underwent the above procedure o n 09/13/2017. He tolerated the procedure well and recovered uneventfully on the guzmán post-ope ratively. he was discharged home on post-op day 4 at which time he was tolerating a regular diet, had good pain control on oral medications, and was ambulating without difficulty. Previous work-up: The patient has a modified barium swallow study on 09/14/17 while he was an inpatient. Per r eport: Patient presents with a moderate, primarily pharyngeal dysphagia characterized by sig nificantly reduced cricopharyngeus opening as well as reduced duration of opening, resulting in incomplete flow of the bolus through the pharynx and allowing for moderate to severe raphael lecular, pyriform sinus and upper esophageal residue. Though airway protection was adequate throughout the evaluation, amount of residue tended to build up as viscosity increased (thou gh was still somewhat significant with even thin liquids), which puts patient at risk for ev entually aspirating the pharyngeal residue. Multiple swallows appeared to improve the amount of residue to some degree, though residue was never completely cleared from pharynx. Esopha gram revealed esophageal dysmotility as per radiology report; perhaps pharyngeal dysphagia a nd cricopharyngeal prominence is secondary to underlying esophageal dysphagia. Medical team to consider a dysmotility agent as well as a consult to ENT given cricopharyngeal prominence . The patient had an esophagram on 09/14/17 while he was in the hospital. Per report: FINDINGS: Focal short segment smooth narrowing of the upper esophagus in region of prominent cricopha ryngeal muscle (best appreciated on modified barium study). The bilateral narrowing of the e sophagus on AP views may be from compression by enlarged thyroid (best seen on CT 08/19/2017) . Moderate esophageal dysmotility of the mid to distal esophagus. No otheresophageal oanh rowing identified. No hiatal hernia identified. Barium passes into the stomach. IMPRESSION: Focal short segment smooth narrowing of upper esophagus in region of prominent cricopharyng eal muscle. There may be component of compression by the enlarged thyroid. Moderate distal esophageal dysmotility. Pt has a past medical history of DM2 (diabetes mellitus, type 2) ([facility]); Esophageal strictu re; GERD (gastroesophageal reflux disease); Hyperlipidemia; Hypertension; Post-polio syndrom e; and SNHL (sensorineural hearing loss). Pt has a past surgical history that includes inner ear surgery (1975); tonsillectomy and a denoidectomy; appendectomy; and cochlear implant (Bilateral, 2016). DIETARY STATUS: Current diet: The patient is currently taking ground and pureed foods and any liquids by [facility]. Feeding tube status: The patient does not have a feeding tube. PSS-Normalcy of Diet score: 40, foods up to and including soft non-chew foods. In a typical day, he reports taking the following: ? Breakfast: Boost ? Lunch: Creamy soup like cream of chicken or cream of mushroom ("I drain out the chunks") ? Dinner: Creamy soup ? Other: 6 tbsp of peanut butter (for protein) Functional Oral Intake Scale (FOIS) TUBE DEPENDENT (levels 1-3) Level 1: Nothing by mouth. Level 2: Tube dependent with minimal attempts of food or liquid. Level 3: Tube dependent with consistent oral intake of food or liquid. TOTAL ORAL INTAKE (levels 4-7) Level 4: Total oral diet of a single consistency. Level 5: Total oral diet with multiple consistencies, but requiring special preparation or compensations. Level 6: Total oral diet with multiple consistencies without special preparation, but with specific food limitations. Level 7: Total oral diet with no restrictions. WEIGHT: Stable; weighed at 145 lbs today (inconsistent with most recent generated weight be low). He reports losing "a few pounds" after his recent hospitalization but feels he has gai cedric most of it back. Wt Readings from Last 3 Encounters: 10/21/17 97.8 kg (215 lb 8 oz) 10/06/17 65.8 kg (145 lb 1.6 oz) 09/14/17 74.7 kg (164 lb 10.9 oz) SOCIAL HISTORY: He is and lives in [place], [place]. COMMUNICATION, SPEECH & RESPIRATORY STATUS: The patient communicates verbally. Speech quality was normal. Voice quality was normal In terms of respiration, the patient is breathing easily at rest. ORAL-MOTOR EXAMINATION: Dentition: Good repair. Velar elevation: complete. Tongue: Oral tongue strength was within functional limits. Range of motion of the tongue wa s within functional limits. Lips: Lip strength was within functional limits. Range of motion of the lips was within fun ctional limits. Jaw: Range of motion of the jaw was within functional limits. Jaw strength was within funct ional limits. Laryngeal elevation: complete to palpation. Cough strength: mildly reduced. CLINICAL EVALUATION OF SWALLOWING: The patient was trialed with the following consistencies: Water (via cup sip), apricot nect ar, applesauce, pudding, fruit cup, cracker. Oral Phase: Oral bolus control and preparation were within functional limits. Pharyngeal Phase: Initiation of the pharyngeal phase was timely. There was no coughing, th roat clear, voice change, regurgitation, or reported sensation of pharyngeal residue for lavern er, nectar, applesauce, pudding, or fruit cup. Patient was initially hesitant to try cracker but was willing to try a small bite and chew thoroughly. Coughing was noted 1x with cracker after he took a sip of water to clear residue of cracker. He was surprised by how well he w as able to manage fruit cup and cracker as long as he chews thoroughly, and proceeded to fin lilliana nearly entire fruit cup and 3 jonathan crackers. COMPENSATORY MANEUVERS: During the evaluation, we evaluated the efficacy of the following: Small bites and chewing thoroughly ? Taking small bites and chewing thoroughly was effective in improving sensation of bolus t ransit to esophagus and reducing sensation of pharyngeal residue. PATIENT EDUCATION & TREATMENT: Subsequent to the examination the findings were reviewed wit h the patient. 1. A rehabilitation program was implemented today including gargling protocol and Cindi an dedrick tongue press maneuvers. 2. The patient s current diet was upgraded to mechanical soft foods with any liquids toda y. 3. We also discussed following up in 6-8 weeks for reevaluation (ideally with MBS) to asses s efficacy of exercises and need for ENT consult for CP prominence. The patient was hesitant to make any specific plans because he is "starting a new liquid medication for cancer" next week and is unsure how he will tolerate this. He is also unsure if he wants to continue to drive to [facility] for appointment of if he wants to follow up with his previous ENT locally and continue swallow treatment/work-up there. I encouraged him to do what he is most comfortable with but emphasized the importance of follow-up with an SPORTS DEVELOPMENT OFFICER, particularly because he feels his swallow has worsened recently, is limiting diet, and is struggling to maintain weight. 4. The patient was also provided with treatment exercises and dysphagia precautions in writ ten form. 5. He initially insisted that his problem was exclusively related to his esophagus, so educ ation via video review was used to explain that his dysphagia involves both the pharynx and the esophagus. DYSPHAGIA RECOMMENDATIONS: Take small bites, one bite at a time, chewing thoroughly. Choose foods carefully and avoid foods that are too difficult to chew. Alternate liquids and solids to clear residue before taking another bite. Double swallow for each bite/sip. Take pills crushed if possible (excepting capsules or delayed-release medications) or wh ole with apple-sauce/yogurt/ice-cream. Monitor weight, nutrition, and respiratory status. Esophageal dysmotility recommendations were given today as follows: Dietary and eating habits should to be adjusted: Smaller, more frequent meals are prefer red over the larger meals of the traditional 3 meals per day pattern. Take smaller bites of food, with thorough chewing and slow swallowing. Wash down bites of food with liquids frequently. Stay upright while eating and for some time after mealtime (at least 2 hours) to enhance esophageal emptying. Straightening of the back, raising arms above the head, and standing c an increase pressure and enhance esophageal clearance. Avoiding exercise and avoiding lying down during and after mealtime can enhance esophage al emptying and improve symptoms. ASSESSMENT: The patient demonstrates moderate pharyngoesophageal dysphagia (per MBS 09/14/17 ) secondary to mildly reduced BOT strength and significantly reduced CP opening resulting in incomplete flow of bolus through the pharynx and moderate-severe pharyngeal residue. Esopha geal dysmotility was also noted by radiologist on esophagram from same day. The patient does not feel like he has a significant swallowing problem yet is limiting his diet to mostly pu evangelista. He also feels like swallowing has become worse since he left the hospital last month, but that he has "just gotten used to it". The patient's dysphagia appears to be secondary to mild base of tongue weakness in addition to reduced CP opening, so he was started on a swal low strengthening program today with the plan to try and repeat MBS in 6-8 weeks. At that po int, we can evaluate effectiveness of exercises and adherence to strategies, and if dysphagi a persists, can consider consultation and further intervention with ENT for CP prominence. T he patient is appropriate to remain on their current diet which was upgraded to mechanical s oft foods with any liquids PLAN: The patient was advised to: 1. Use swallow strategies (small bites/sip, chew thoroughly, alternate liquids and solids) as discussed. 2. Use esophageal dysmotility precautions as discussed. 3. Gradually incorporate mechanical soft foods as tolerated, making sure to chew thoroughly . 4. Perform the following: Gargling protocol (5 gargles, 5x per day), Cindi and tongue pres s maneuvers (10 reps, 5 sets per day each) 5 times daily for 6-8 weeks. 5. The patient was also instructed to monitor their weight on a daily basis. FOLLOW-UP: The patient was advised to follow-up with us in 6-8 weeks for reevaluation and p ossible repeat MBS. Thank you for this consult. Keyla Abdalla M.S. CF-SPORTS DEVELOPMENT OFFICER Speech Pathology Clinical Fellow [facility] Otolaryngology, Head and Neck Surgery [facility] and Science Artie in this encounter Plan of Treatment +--------+ + + + + | Date | Type | Specialty | Care Team | Description | +--------+ + + + + | 12/20/ Diagnostic | Orthopaedic Physician Assistant | Nils Woody, | | | 2018 | Visit | | GRETCHEN Ramires [address] | | | | | [address] | | | | | | [place], [place] | | | | | | [address] | | | | | | | | +--------+ + + + + as of this encounter Procedures + +--------+ + + + | Procedure Name | Priori | Date/Time | Associated Diagnosis | Comments | | | ty | | | | + +--------+ + + + | IN EVAL,ORAL & | Routin | 10/21/2017 | Dysphagia, | | | PHARYNGEAL SWALLOW | e | 5:55 PM | pharyngoesophageal | | | FUNCTION | | PDT | phase | | + +--------+ + + + in this encounter Visit Diagnoses + + | Diagnosis | + + | Dysphagia, pharyngoesophageal phase - Primary | + +
--- OUTSIDE RECORDS SUMMARY | ~2017-11-22 | XMS | Encounter Summary ---
Demographics + + + | Address | [address] | | | [place] [address] | + + + | Home Phone | | + + + | Preferred Language | Unknown | + + + | Marital Status | | + + + | Cheondoism Affiliation | LDS | + + + | Race | White | + + + | Ethnic Group | Not or | + + + Author + + + | Author | [facility] | + + + | Organization | [facility] | + + + | Address | Unknown | + + + | Phone | Unavailable | + + + Support + + + + + | Name | Relationship | Address | Phone | + + + + + | MILLY NGUYEN | ECON | [address] | | | | | [place], | | | | | [place] [address] | | + + + + + | Holly Burrell | ECON | Unknown | | + + + + + Care Team Providers + +------+ + | Care Home Manager Name | Role | Phone | + +------+ + | Jeremy Adrian MD | PCP | | + +------+ + Reason for Referral Diagnostic Testing (Routine) + +--------+ + + + + | Status | Reason | Specialty | Diagnoses / | Referred By | Referred To | | | | | Procedures | Contact | Contact | + +--------+ + + + + | New Request | | Radiology | Diagnoses | Ross, | | | | | | Tumor of | Caustic Purification Operator N, | | | | | | right kidney | ,MPH 3181 | | | | | | with | [address] | | | | | | thrombus of | [address] | | | | | | IVC (HCC) | Rd | | | | | | Procedures | [place], [place] | | | | | | [facility] | [address] | | | | | | ABDOMINAL | Phone: | | | | | | [facility] | [phone] | | | | | | [address] | Fax: | | | | | | | [phone] | | + +--------+ + + + + Diagnostic Testing (Routine) + +--------+ + + + + | Status | Reason | Specialty | Diagnoses / | Referred By | Referred To | | | | | Procedures | Contact | Contact | + +--------+ + + + + | New Request | | Radiology | Diagnoses | Ross, | | | | | | Tumor of | [place] N, | | | | | | right kidney | ,MPH 3181 | | | | | | with | [address] | | | | | | thrombus of | [address] | | | | | | IVC (HCC) | Rd | | | | | | Procedures | [place], [place] | | | | | | VASC LAB | [address] | | | | | | ABDOMINAL | Phone: | | | | | | [facility] | [phone] | | | | | | [address] | Fax: | | | | | | | [phone] | | + +--------+ + + + + Reason for Visit Diagnostic Testing (Routine) + +--------+ + + + + | Status | Reason | Specialty | Diagnoses / | Referred By | Referred To | | | | | Procedures | Contact | Contact | + +--------+ + + + + | New Request | | Radiology | Diagnoses | Ross, | | | | | | Tumor of | [place] N, | | | | | | right kidney | MD,MPH 3181 | | | | | | with | [address] | | | | | | thrombus of | [address] | | | | | | IVC (HCC) | Rd | | | | | | Procedures | [place], [place] | | | | | | [facility]ASC LAB | [address] | | | | | | ABDOMINAL | Phone: | | | | | | [facility] | [phone] | | | | | | [address] | Fax: | | | | | | | [phone] | | + +--------+ + + + + Encounter Details +--------+ + + + + | Date | Type | Department | Care Team | Description | +--------+ + + + + | 10/21/ | Hospital | Diagnostic Imaging | Rosalino Mathews MD | | | 2018 | Encounter | [facility] at [facility] | [address] | | | | | [address] | [address]ie [address] [place], | | | | | Tessie Huang [place], | [place] [address] | | | | | [place] [address] | [phone] | | | | | [phone] | | | +--------+ + + + [...] + + + as of this encounter Medications at Time of Discharge + + + +---------+ + + | Medication | Sig. | Disp. | Refills | Start | End Date | | | | | | Date | | + + + +---------+ + + | aspirin chewable | Chew and swallow 1 | 30 | 3 | 09/19/19 | | | 81 mg oral | tablet once daily. | tablet | | 18 | | | tablet,chewable | | | | | | + + + +---------+ + + | HYDROmorphone | Take 2-4 mL by mouth | 50 mL | 0 | 09/18/19 | | | (DILAUDID) 1 mg/mL | every four hours as | | | 18 | | | oral liquid | needed. | | | | | + + + +---------+ + + | INVOKANA 100 mg | Take 1 tablet by | | 3 | 07/22/19 | | | oral tablet | mouth once daily. | | | 16 | | + + + +---------+ + + | LANTUS SOLOSTAR | Inject 10 Units | | 6 | 07/22/19 | | | 100 unit/mL (3 mL) | under the skin | | | 16 | | | subcutaneous insulin | (SUBC) once daily at | | | | | | pen | bedtime. | | | | | + + + +---------+ + + | metFORMIN 500 mg | Take 1500 mg by | | | | | | oral tablet | mouth every morning | | | | | | | and 1000 mg by mouth | | | | | | | every evening | | | | | + + + +---------+ + + | oxyCODONE | Take 2.5-5 mL by | 150 mL | 0 | 09/18/19 | | | (immediate release) | mouth every six | | | 18 | | | 5 mg/5 mL oral | hours as needed. | | | | | | solution | | | | | | + + + +---------+ + + | pantoprazole 40 mg | Take 40 mg by mouth | | | | | | oral tablet,delayed | once daily as | | | | | | release (DR/EC) | needed. | | | | | + + + +---------+ + + | senna-docusate | Take 1 tablet by | 40 | 0 | 09/18/19 | | | (SENNA-S) 8.6-50 mg | mouth two times | tablet | | 18 | | | oral tablet | daily. | | | | | + + + +---------+ + + | simvastatin 40 mg | Take 40 mg by mouth | | | | | | oral tablet | once daily in the | | | | | | | evening. | | | | | + + + +---------+ + + | sitaGLIPtin | Take 100 mg by mouth | | | | | | (JANUVIA) 100 mg | once daily. | | | | | | oral tablet | | | | | | + + + +---------+ + + | | Take 1 tablet by | | 6 | 07/03/19 | | | valsartan-hydrochlor | mouth once daily. | | | 16 | | | othiazide 160-12.5 | | | | | | | mg oral tablet | | | | | | + + + +---------+ + + as of this encounter Plan of Treatment +--------+ + + + + | Date | Type | Specialty | Care Team | Description | +--------+ + + + + | 12/20/ | Diagnostic | Security Operations Manager | Nils Woody, | | | 2018 | Visit | | BHARATHI Ramires-Ling [address] | | | | | | [address] [facility] | | | | | | Rd [place], [place] | | | | | | [address] | | | | | | | | +--------+ + + + + as of this encounter Procedures + +--------+ + + + | Procedure Name | Priori | Date/Time | Associated Diagnosis | Comments | | | ty | | | | + +--------+ + + + | VASC LAB ABDOMINAL | Routin | 10/21/2017 | Tumor of right | Results for this | | [facility]LEX [facility] ARTERY | e | 1:31 PM | kidney with thrombus | procedure are in the | | VEIN | | PDT | of IVC ([facility]) | results section. | + +--------+ + + + in this encounter Results VAS LAB ABDOMINAL DUPLEX LTD ARTERY VEIN (10/21/2017 1:31 PM) + + + | Narrative | Performed At | + + + | General: The duplex scanner was used to examine the inferior vena | [facility] | | cava and the left renal vein. The inferior vena cava is patent | [facility] | | proximally and distally. The mid portion of the inferior vena cava | [place] | | was not visualized due to presence of overlying bowel gas. There | | | is a nonvascularized structure with mixed echoes in the midline | | | abdomen measuring 6.52 cm x 5.67 cm x 4.13 cm and that may be | | | compressing the distal portion of the inferior vena cava. The left | | | renal vein is patent. Conclusions: Examination of the inferior | | | vena cava and the left renal vein. The proximal and distal inferior | | | vena cava is patent without thrombus. The mid portion of the inferior | | | vena cava was not visualized as described above. There is a | | | nonvascularized structure with mixed echoes in the midline abdomen | | | measuring 6.52 cm x 5.67 cm x 4.13 cm that may be compressing the | | | distal portion of the inferior vena cava. Clinical correlation is | | | suggested. The left renal vein is patent without thrombus. | | | I have personally reviewed the images and, if necessary, edited the | | | report. I agree with the report as now presented. | | + + + + + | Procedure Note | + + | Service Account, Radiant Res In Interface - 10/21/2017 2:39 PM PDT General: The | | duplex scanner was used to examine the inferior vena cava and the left renal vein. The | | inferior vena cava is patent proximally and distally. The mid portion of the inferior | | vena cava was not visualized due to presence of overlying bowel gas. There is a | | nonvascularized structure with mixed echoes in the midline abdomen measuring 6.52 cm x | | 5.67 cm x 4.13 cm and that may be compressing the distal portion of the inferior vena | | cava.The left renal vein is patent.Conclusions: Examination of the inferior vena cava | | and the left renal vein. The proximal and distal inferior vena cava is patent without | | thrombus. The mid portion of the inferior vena cava was not visualized as described | | above. There is a nonvascularized structure with mixed echoes in the midline abdomen | | measuring 6.52 cm x 5.67 cm x 4.13 cm that may be compressing the distal portion of the | | inferior vena cava. Clinical correlation is suggested.The left renal vein is patent | | without thrombus.I have personally reviewed the images and, if necessary, edited the | | report. I agree with the report as now presented. | | | |I have personally reviewed the images and, if necessary, edited the report. I agree with t he report as now presented. 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
--- OUTSIDE RECORDS SUMMARY | ~2017-11-22 | XMS | Encounter Summary ---
Demographics + + + | Address | [address] | | | [place] [address] | + + + | Home Phone | | + + + | Preferred Language | Unknown | + + + | Marital Status | | + + + | Taoist Affiliation | Unknown | + + + | Race | Unknown | + + + | Ethnic Group | Unknown | + + + Author + + + | Author | [facility] | + + + | Organization | [facility] | + + + | Address | Unknown | + + + | Phone | Unavailable | + + + Support + + +---------+ + | Name | Relationship | Address | Phone | + + +---------+ + | Yuki Nguyen | ECON | Unknown | | + + +---------+ + Care Team Providers + +------+ + | Care Dredge Pumper Name | Role | Phone | + +------+ + PCP | Unavailable | + +------+ + Encounter Details +--------+ + + + + | Date | Type | Department | Care Team | Description | +--------+ + + + + | 10/10/ | Documentati | [facility] | Tequila Serrano RPH | | | 2017 | on Only | [address] | | | | | | [place] | | | | | | [address] | | | +--------+ + + + [...] + + as of this encounter Progress Tequila Montes, [facility] - 10/10/2017 12:02 PM PDTFormatting of this note may be different from t he original. [facility] Clinical Pharmacy New Patient Review (Sunitinib) Patient: Stefan Nguyen 71 y.o. male 1945 Oncology Provider: Stephanie Quiroz MD Allergies: Patient has no known allergies. Objective Data: Problem List: Patient Active Problem List Diagnosis Cancer of kidney, right (HCC) Encounter for antineoplastic chemotherapy Treatment Plan: Treatment Plans Name Type Plan dates Plan Provider Active OP ORAL SUNITINIB Q 42DAYS TREATMENT PLAN 10/10/2017 - Present Shreya Gonzalez Home Medications: Prior to Admission medications Medication Sig Start Date End Date Taking? Authorizing Provider aspirin 81 MG chewable tablet Take by mouth. 09/18/17 Historical Provider Canagliflozin (INVOKANA PO) Take by mouth daily. Historical Provider Canagliflozin (INVOKANA) 100 MG tablet Take by mouth. 07/22/15 Historical Provider insulin glargine (LANTUS SOLOSTAR) 100 UNIT/ML injection Inject into the skin. 07/22/15 H istorical Provider insulin glargine (LANTUS) 100 UNIT/ML injection Inject into the skin daily. Historical Provider metFORMIN (GLUCOPHAGE) 500 MG tablet Take 1500 mg by mouth every morning and 1000 mg by james th every evening Historical Provider METFORMIN HCL PO Take by mouth 2 (two) times daily. Historical Provider ondansetron (ZOFRAN) 8 MG tablet Take 1 tablet by mouth every 8 (eight) hours as needed for Nausea. 10/10/17 Stephanie Quiroz MD pantoprazole (PROTONIX) 40 MG tablet Take by mouth. Historical Provider Pantoprazole Sodium (PROTONIX PO) Take by mouth daily. Historical Provider prochlorperazine (COMPAZINE) 10 MG tablet Take 1 tablet by mouth every 6 (six) hours as nee ded for Nausea or Vomiting. 10/10/17 Stephanie Quiroz MD simvastatin (ZOCOR) 40 MG tablet Take by mouth. Historical Provider SIMVASTATIN PO Take by mouth daily. Historical Provider SUNItinib (SUTENT) 37.5 MG capsule Take 1 capsule by mouth daily for 336 days. Take once da christos x 4 weeks followed by a 2 week rest period. 10/10/17 09/11/18 Shreya Gonzalez Valsartan (DIOVAN PO) Take by mouth daily. Historical Provider valsartan-hydrochlorothiazide (DIOVAN-HCT) 160-12.5 MG per tablet Take by mouth. 07/03/15 Historical Provider Vital Signs: Height: Actual Weight: BSA: There is no height or weight on file to calculate BSA. Creatinine Clearance: Creatinine clearance cannot be calculated (No order found.) BP: BP Readings from Last 3 Encounters: 10/04/17 130/78 Current Labs: Scr:No results found for: CREATININE Potassium:No results found for: K Calcium:No results found for: CA LFT:No results found for: ALT, AST, GGT, ALKPHOS, BILITOT Platelets:No results found for: PLT ANC:No results found for: NEUTROABS ANC - MANUAL: No results found for: NEUTABSMAN Magnesium:No results found for: MG Urine Protein:No results found for: UPRO Platelet:No results found for: PLT LDH:No results found for: LDH Uric Acid:No results found for: URICACID TSH:No results found for: TSH Alkaline Phosphatase: No results found for: ALKPHOS Hepatitis B:No results found for: HAV, HEPAIGM, HEPBIGM, HEPBCAB, HBEAG, HEPCAB Protein/Creat Ratio:No results found for: LABPROT Imaging: No results found. Tumor Markers: CA 125:No results found for: CA125 CA 15,3:No results found for: CA153 CA 19,9:No results found for: CA199 CA 27,29:No results found for: WF7466 CEA:No results found for: CEA HCG:No results found for: HCGTM AFP:No results found for: AFPTM Chromogranin A:No results found for: CGA Beta 2 Microglobulin:No results found for: B2MUX Pharmacist Assessment: Drug Interactions of Concern: None Duplicate/Contraindications/Other: None Emetogenicity risk: Low Emetic Risk Support Medications Ordered Appropriate: N/A VTE Risk Factors Identified: Yes Cancer patient Has a chemo consent been signed: no Recommended Actions: Yes Obtained signed consent. Also, CBC and CMP have been ordered, bu t not drawn yet. Work-up Performed By TEQUILA SERRANO RPH October 10, 2017 12:02 PMin this encounter Plan of Treatment +--------+---------+ + [...] [place] | | | | | | [address] | | | | | | | | +--------+---------+ + + + as of this encounter Visit Diagnoses Not on filein this encounter"
--- OUTSIDE RECORDS SUMMARY | ~2017-11-22 | XMS | Encounter Summary ---
Demographics + + + | Address | [address] | | | [place] [address] | + + + | Home Phone | | + + + | Preferred Language | Unknown | + + + | Marital Status | | + + + | Congregational Affiliation | LDS | + + + | Race | White | + + + | Ethnic Group | Not or | + + + Author + + + | Author | [facility] | + + + | Organization | [facility] | + + + | Address | Unknown | + + + | Phone | Unavailable | + + + Support + + + + + | Name | Relationship | Address | Phone | + + + + + | MILLY NGUYEN | ECON | [address] | | | | | [place], | | | | | [place] [address] | | + + + + + | Holly Burrell | ECON | Unknown | | + + + + + Care Team Providers + +------+ + | Care Single Stayer Operator Name | Role | Phone | + [...] | | | | Tumor of | Automotive Refinisher N, | | | | | | right kidney | ,MPH 3181 | | | | | | with | [address] | | | | | | thrombus of | [address] Kurtz | | | | | | IVC (HCC) | Rd | | | | | | Procedures | [place], [place] | | | | | | [facility] | [address] | | | | | | ABDOMINAL | Phone: | | | | | | [facility] | [phone] | | | | | | [address] | Fax: | | | | | | | [phone] | | + +--------+ + + + [...] | | | | Tumor of | [place]ia N, | | | | | | right kidney | ,MPH 3181 | | | | | | with | [address] | | | | | | thrombus of | [address] | | | | | | IVC (HCC) | Rd | | | | | | Procedures | [place], [place] | | | | | | VASC LAB | [address] | | | | | | ABDOMINAL | Phone: | | | | | | [facility] | [phone] | | | | | | [address] | Fax: | | | | | | | [phone] | | + +--------+ + + + [...] | | | | Tumor of | Vidalia N, | | | | | | right kidney | MD,MPH 3181 | | | | | | with | [address] | | | | | | thrombus of | [address] | | | | | | IVC (HCC) | Rd | | | | | | Procedures | [place], [place] | | | | | | VASC LAB | [address] | | | | | | ABDOMINAL | Phone: | | | | | | [facility] | [phone] | | | | | | ART[address] | Fax: | | | | | | | [phone] | | + +--------+ + + + [...] | [address] | [address]ie [address] [place], | | | | | [place], | [place] [address] | | | | | [place] [address] | [phone] | | | | | [phone] | | | +--------+ + + + [...] + + | 12/20/ | Diagnostic | Pit Hand | Nils Woody, | | | 2018 | Visit | | BHARATHI Ramires-Ling [address] | | | | | | [address] [facility] | | | | | | Rd [place], [place] | | | | | | [address] | | | | | | | [...] VEIN | | PDT | of IVC ([facility]) | results section. | + +--------+ + [...] + + | Performing | Address | City/State/[facility] | Phone Number | | Organization [...]
--- OUTSIDE RECORDS SUMMARY | ~2017-11-22 | XMS | Encounter Summary ---
Demographics + + + | Address | [address] | | | [place] [address] | + + + | Home Phone | | + + + | Preferred Language | Unknown | + + + | Marital Status | | + + + | Taoist Affiliation | LDS | + + + | Race | White | + + + | Ethnic Group | Not or | + + + Author + + + | Author | [facility] | + + + | Organization | [facility] | + + + | Address | Unknown | + + + | Phone | Unavailable | + + + Support + + + + + | Name | Relationship | Address | Phone | + + + + + | MILLY NGUYEN | ECON | [address] | | | | | [place], | | | | | [place] [address] | | + + + + + | Holly Otoole ECON | Unknown | | + + + + + Care Team Providers + +------+ + | Care Varnish Maker Name | Role | Phone | + +------+ + | Jeremy Adrian MD | PCP | | + +------+ + Encounter Details +--------+ + + + + | Date | Type | Department | Care Team | Description | +--------+ + + + + | 11/07/ | Assistant Account Executive | [facility] | Cristy Rubin MD | Dysphagia, | | 2018 | | [address] | [address] | pharyngoesophageal | | | | Mail Code: CH10U | [place], [place] | phase (Primary Dx) | | | | [facility] | [address] | | | | | and | [phone] | | | | | Floor [place], [place] | | | | | | [address] | | | | | | [phone] | | | +--------+ + + + [...] + + | 12/20/ | Diagnostic | Linseed Oil Press Tender | Nils Woody, | | | 2018 | Visit | | BHARATHI Ramires-Ling [address] | | | | | | [address] [facility] | | | | | | Rd [place], [place] | | | | | | [address] | | | | | | | | +--------+ + + + + + +--------+ + + | Name | Priori | Associated Diagnoses | Order Schedule | | | ty | | | + +--------+ + + | MODIFIED BARIUM SWALLOWING | Routin | Dysphagia, | Expected: | | | e | pharyngoesophageal | 11/07/2017, Expires: | | | | phase | 12/08/2018 | + +--------+ + + as of this encounter Visit Diagnoses + + | Diagnosis | + + | Dysphagia, pharyngoesophageal phase - Primary | + +"
--- OUTSIDE RECORDS SUMMARY | ~2017-11-22 | XMS | Encounter Summary ---
Demographics + + + | Address | [address] | | | [place] [address] | + + + | Home Phone | | + + + | Preferred Language | Unknown | + + + | Marital Status | | + + + | Shinto Affiliation | LDS | + + + | Race | White | + + + | Ethnic Group | Not or | + + + Author + + + | Author | [facility] | + + + | Organization | [facility] | + + + | Address | Unknown | + + + | Phone | Unavailable | + + + Support + + + + + | Name | Relationship | Address | Phone | + + + + + | MILLY NGUYEN | ECON | [address] | | | | | [place], | | | | | [place] [address] | | + + + + + | Holly Burrell | ECON | Unknown | | + + + + + Care Team Providers + +------+ + | Care Plant Technician Name | Role | Phone | + +------+ + | Jeremy Adrian MD | PCP | | + +------+ + Reason for Referral Diagnostic Testing (Routine) +--------+--------+ + + + + | Status | Reason | Specialty | Diagnoses / | Referred By | Referred To | | | | | Procedures | Contact | Contact | +--------+--------+ + + + + | Closed | | Radiology | Diagnoses | Cristy Rubin | Rad Ct Scan | | | | | Right renal | MD Devika | [address] | | | | | mass | [address] | [address] | | | | | Procedures | Ave | Mailcode: | | | | | CT ABDOMEN | [facility], [place] | [facility] | | | | | [place] | [phone] | for Health | | | | | CONTRAST IN | Phone: | and Healing, | | | | | CT SCAN OF | [phone] | 3rd Floor | | | | | ABDOMEN | Fax: | [place], [place] | | | | | COMBO | [phone] | [address] | | | | | | | Phone: | | | | | | | [phone] | | | | | | | Fax: | | | | | | | [phone] | +--------+--------+ + + + + Diagnostic Testing (Routine) +--------+--------+ + + + + | Status | Reason | Specialty | Diagnoses / | Referred By | Referred To | | | | | Procedures | Contact | Contact | +--------+--------+ + + + + | Closed | | Radiology | Diagnoses | Cristy Rubin | Rad Ct Scan | | | | | Right renal | MD Devika | [address] | | | | | mass | [address] | [address] | | | | | Procedures | Ave | Mailcode: | | | | | CT ABDOMEN | [place], [place] | [address] | | | | | [place] | [phone] | for Health | | | | | CONTRAST IN | Phone: | and Healing, | | | | | CT SCAN OF | [phone] | 3rd Floor | | | | | ABDOMEN | Fax: | [place], [place] | | | | | COMBO | [phone] | [address] | | | | | | | Phone: | | | | | | | [phone] | | | | | | | Fax: | | | | | | | [phone] | +--------+--------+ + + + + Reason for Visit Diagnostic Testing (Routine) +--------+--------+ + + + + | Status | Reason | Specialty | Diagnoses / | Referred By | Referred To | | | | | Procedures | Contact | Contact | +--------+--------+ + + + + | Closed | | Radiology | Diagnoses | Cristy Rubin | Rad Ct Scan | | | | | Right renal | MD Devika | [address] | | | | | mass | [address] | [address] | | | | | Procedures | Ave | Mailcode: | | | | | CT ABDOMEN | [facility], [place] | [facility] | | | | | [place] | [phone] | for Health | | | | | CONTRAST IN | Phone: | and Healing, | | | | | CT SCAN OF | [phone] | 3rd Floor | | | | | ABDOMEN | Fax: | [place], [place] | | | | | COMBO | [phone] | [address] | | | | | | | Phone: | | | | | | | [phone] | | | | | | | Fax: | | | | | | | [phone] | +--------+--------+ + + + + Encounter Details +--------+ + + + + | Date | Type | Department | Care Team | Description | +--------+ + + + + | 08/31/ | Hospital | Radiology/Imaging | Cristy Rubin MD | | | 2018 | Encounter | Lab at [facility] [address] | [address] | | | | | [address] | [place], [place] | | | | | Mailcode: [facility] | [address] | | | | | [facility] | [phone] | | | | | and Healing, [facility] | | | | | | Floor [place], [place] | | | | | | [address] | | | | | | [phone] | | | +--------+ + + + [...] + + | 12/20/ | Diagnostic | Crew Supervisor | Nils Woody, | | | 2018 | Visit | | Keyla [facility] [address] | | | | | | [address] | | | | | | [place], [place] | | | | | | [address] | | | | | | | | +--------+ + + + + as of this encounter Procedures + +--------+ + + + | Procedure Name | Priori | Date/Time | Associated Diagnosis | Comments | | | ty | | | | + +--------+ + + + | CT ABDOMEN [place] | Routin | 08/31/2017 | Right renal mass | Results for this | | CONTRAST | e | 4:59 PM | | procedure are in the | | | | PDT | | results section. | + +--------+ + + + | CREATININE, POC | Routin | 08/31/2017 | Right renal mass | Results for this | | | e | 4:26 PM | | procedure are in the | | | | PDT | | results section. | + +--------+ + + + in this encounter Results CT ABDOMEN [place] CONTRAST (08/31/2017 4:59 PM) + + + | Narrative | Performed At | + + + | EXAM: Renal Mass protocol CT of the abdomen with and without | [facility] | | contrast. HISTORY: right renal mass with caval thrombus | RADIOLOGY VOICE | | COMPARISON: Outside CT, 08/19/2017. TECHNIQUE: Unenhanced, | RECOGNITION 2 | | arterial, portal venous and 4-minute delayed abdominal CT with non | | | ionic iodinated intravenous contrast. Coronal and sagittal reformats | | | were created. FINDINGS: LOWER THORAX: As seen on prior exam, | | | multiple pulmonary nodules are noted at the lung bases and are | | | suspicious for metastases. Left periaortic pleural-parenchymal | | | enhancing lesion is 14 x 14 mm (image 6), unchanged. Partially | | | visualized left lower lobe 9 mm pulmonary nodule is also stable (image | | | 1). Diffuse distal esophageal thickening is present. LIVER: 16 x | | | 14 mm segment 2 rim arterially enhancing lesion (arterial 24) exhibits | | | washout on subsequent phases and is suspicious for metastasis. This | | | was poorly visualized on the single phase outside CT. Another similar | | | arterial enhancing focus in segment 5/6 is 11 mm (arterial 57), not | | | visualized on the prior exam, but likely present. BILIARY: | | | Multiple layering gallstones are present within the gallbladder. | | | PANCREAS: Diffuse pancreatic atrophy. SPLEEN: Unremarkable. | | | ADRENALS: The right adrenal gland is poorly visualized. The left | | | adrenal gland is unremarkable. KIDNEYS/URETERS: The left kidney is | | | unremarkable. Heterogeneously enhancing right renal mass has not | | | significantly changed as follows: Radius: 9.1 x 7.6 x 8.3 cm, | | | previously, 9.0 x 7.1 x 8.1 cm (parenchymal 64, coronal 38). | | | Exophytic by less than 50%. Nearness to the collecting system: Less | | | than 4 mm. This lesion involves the renal collecting system without | | | hydronephrosis. Trace contrast is in the right upper collecting system | | | on the delayed phase. Location: Posterior. The mass straddles the | | | polar lines. Tumor fills the right renal vein into the | | | infrahepatic IVC, but not extending intrahepatically. Craniocaudal | | | extent of the caval tumor thrombus is 63 mm (coronal 43) with | | | extension just into the ostium of the left renal vein. Extensive | | | neovascularity associated with the mass in the perinephric region is | | | noted. Perinephric stranding is also associated with this lesion. | | | The mass abuts and may be adherent to the right psoas muscle (delay | | | 73). GI TRACT: The visualized bowel loops are not dilated. | | | PERITONEUM: No free air or fluid. LYMPH NODES: Borderline-sized | | | retroperitoneal nodes are present and may be reactive versus | | | malignant. Aortocaval node is 17 x 11 mm (image 77), previously, 18 x | | | 13 mm. VESSELS: As above. BONES AND SOFT TISSUES: Healed left | | | anterior rib fractures are present. IMPRESSION: Since | | | 08/19/2017, large right renal mass with infrahepatic caval tumor | | | thrombus. Stable multiple pulmonary nodules suspicious for | | | metastases. One, possibly 2, hepatic lesions highly suspicious for | | | metastases. One lesion is located in high segment 2, while the other | | | is located in segment 5/6 near the hepatic tip. These were likely | | | present on the prior exam, but poorly visualized due to technique. | | | Reactive versus malignant borderline-sized retroperitoneal nodes. | | | I have personally reviewed the images and, if necessary, edited the | | | report. I agree with the report as now presented. Final | | | signature: Diane Crowe MD 09/01/2017 9:03 AM Preliminary: Diane | | | Leanna Crowe MD Dictation initiated: Diane Crowe MD 09/01/2017 | | | 8:29 AM | | + + + + + | Procedure Note | + + | Service Account, Radiant Res In Interface - 09/01/2017 9:19 AM PDT EXAM: Renal Mass | | protocol CT of the abdomen with and without contrast. HISTORY: right renal mass with | | caval thrombus COMPARISON: Outside CT, 08/19/2017. TECHNIQUE: Unenhanced, arterial, | | portal venous and 4-minute delayed abdominal CT with non ionic iodinated intravenous | | contrast. Coronal and sagittal reformats were created. FINDINGS: LOWER THORAX: As seen | | on prior exam, multiple pulmonary nodules are noted at the lung bases and are suspicious | | for metastases. Left periaortic pleural-parenchymal enhancing lesion is 14 x 14 mm | | (image 6), unchanged. Partially visualized left lower lobe 9 mm pulmonary nodule is also | | stable (image 1). Diffuse distal esophageal thickening is present. LIVER: 16 x 14 mm | | segment 2 rim arterially enhancing lesion (arterial 24) exhibits washout on subsequent | | phases and is suspicious for metastasis. This was poorly visualized on the single phase | | outside CT. Another similar arterial enhancing focus in segment 5/6 is 11 mm (arterial | | 57), not visualized on the prior exam, but likely present. BILIARY: Multiple layering | | gallstones are present within the gallbladder.PANCREAS: Diffuse pancreatic | | atrophy.SPLEEN: Unremarkable.ADRENALS: The right adrenal gland is poorly visualized. The | | left adrenal gland is unremarkable. KIDNEYS/URETERS: The left kidney is unremarkable. | | Heterogeneously enhancing right renal mass has not significantly changed as | | follows:Radius: 9.1 x 7.6 x 8.3 cm, previously, 9.0 x 7.1 x 8.1 cm (parenchymal 64, | | coronal 38).Exophytic by less than 50%.Nearness to the collecting system: Less than 4 | | mm. This lesion involves the renal collecting system without hydronephrosis. Trace | | contrast is in the right upper collecting system on the delayed phase.Location: | | Posterior. The mass straddles the polar lines. Tumor fills the right renal vein into the | | infrahepatic IVC, but not extending intrahepatically. Craniocaudal extent of the caval | | tumor thrombus is 63 mm (coronal 43) with extension just into the ostium of the left | | renal vein. Extensive neovascularity associated with the mass in the perinephric region | | is noted. Perinephric stranding is also associated with this lesion. The mass abuts and | | may be adherent to the right psoas muscle (delay 73). GI TRACT: The visualized bowel | | loops are not dilated.PERITONEUM: No free air or fluid. LYMPH NODES: Borderline-sized | | retroperitoneal nodes are present and may be reactive versus malignant. Aortocaval node | | is 17 x 11 mm (image 77), previously, 18 x 13 mm.VESSELS: As above. BONES AND SOFT | | TISSUES: Healed left anterior rib fractures are present. IMPRESSION: Since 08/19/2017, | | large right renal mass with infrahepatic caval tumor thrombus. Stable multiple pulmonary | | nodules suspicious for metastases. One, possibly 2, hepatic lesions highly suspicious | | for metastases. One lesion is located in high segment 2, while the other is located in | | segment 5/6 near the hepatic tip. These were likely present on the prior exam, but | | poorly visualized due to technique. Reactive versus malignant borderline-sized | | retroperitoneal nodes. I have personally reviewed the images and, if necessary, edited | | the report. I agree with the report as now presented. Final signature: Diane Crowe MD | | 09/01/2017 9:03 AM Preliminary: Diane Crowe MD Dictation initiated: Sydnie Guzman MD 09/01/2017 8:29 AM | | | |BONES AND SOFT TISSUES: Healed left anterior rib fractures are present. | | | |IMPRESSION: | | | |Since 08/19/2017, large right renal mass with infrahepatic caval tumor thrombus. | | | |Stable multiple pulmonary nodules suspicious for metastases. | | | |One, possibly 2, hepatic lesions highly suspicious for metastases. One lesion is located in high segment 2, while the other is located in segment 5/6 near the hepatic tip. These were likely present on the prior exam, but | |poorly visualized due to technique. | | | |Reactive versus malignant borderline-sized retroperitoneal nodes. | | | |I have personally reviewed the images and, if necessary, edited the report. I agree with th e report as now presented. | | | |Final signature: Diane Crowe MD 09/01/2017 9:03 AM | |Preliminary: Diane Crowe MD | |Dictation initiated: Diane Crowe MD 09/01/2017 8:29 AM | + + + +---------+ + + | Performing | Address | City/State/Zipcode | Phone Number | | Organization | | | | + +---------+ + + | [facility] | | | | | VOICE RECOGNITION 2 | | | | + +---------+ + + CREATININE, POC (08/31/2017 4:26 PM) + +---------+ + + | Component | Value | Ref Range | Performed At | + +---------+ + + | CREATININE, POC | 1.4 (H) | 0.7 - 1.3 mg/dL | [facility] | | | | | [facility]INT OF CARE | | | | | TESTS | + +---------+ + + + + | Specimen | + + | Blood - Blood | + + + + + + + | Performing | Address | City/State/Zipcode | Phone Number | | Organization | | | | + + + + + | [facility] | [address] | [place] [address] | | | OF CARE TESTS | | | | + + + + + in this encounter Visit Diagnoses + + | Diagnosis | + + | Right renal mass | + + | Unspecified disorder of kidney and ureter | + + Administered Medications + +---------+ +--------+------+------+ | Medication Order | MAR | Action | Dose | Rate | Site | | | Action | Date | | | | + +---------+ +--------+------+------+ | iohexol (OMNIPAQUE) 350 mg | IV Push | 08/31/2017 | 125 mL | | | | iodine/mL injection 125 mL 125 | | 17:30 | | | | | mL, intravenous, ONCE, 1 dose, | | PDT | | | | | 08/31/17 at 1730 | | | | | | + +---------+ +--------+------+------+ +---+---+ | | | +---+---+ in this encounter"
--- OUTSIDE RECORDS SUMMARY | ~2017-11-22 | XMS | Encounter Summary ---
Demographics + + + | Address | [address] | | | [place] [address] | + + + | Home Phone | | + + + | Preferred Language | Unknown | + + + | Marital Status | | + + + | Adventism Affiliation | LDS | + + + | Race | White | + + + | Ethnic Group | Not or | + + + Author + + + | Author | [facility] | + + + | Organization | [facility] | + + + | Address | Unknown | + + + | Phone | Unavailable | + + + Support + + + + + | Name | Relationship | Address | Phone | + + + + + | MILLY NGUYEN | ECON | [address] | | | | | [place], | | | | | [place] [address] | | + + + + + | Holly Burrell | ECON | Unknown | | + + + + + Care Team Providers + +------+ + | Care Career Transition Specialist Name | Role | Phone | + +------+ + | Jeremy Adrian MD | PCP | | + +------+ + Encounter Details +--------+ + + + + | Date | Type | Department | Care Team | Description | +--------+ + + + + | 09/13/ | Procedure | 6A Intra Op [facility] | | | | 2018 | Pass | [facility] | | | | | | Admitting Desk | | | | | | Located on the 9 | | | | | | floor [address] | | | | | | [facility] | | | | | | [place], [place] | | | | | | [address] | | | +--------+ + + + [...] + + | 12/20/ | Diagnostic | Hand Blocker | Nils Woody, | | | 2018 | Visit | | [address]RET[address]EN [address] | | | | | | [address] | | | | | | [place] | | | | | | [address] | | | | | | | | +--------+ + + + + as of this encounter Visit Diagnoses Not on filein this encounter"
--- OUTSIDE RECORDS SUMMARY | ~2017-11-22 | XMS | Encounter Summary ---
Demographics + + + | Address | [address] | | | [place] [address] | + + + | Home Phone | | + + + | Preferred Language | Unknown | + + + | Marital Status | | + + + | Bahai Affiliation | LDS | + + + [...] + | MILLY NGUYEN | ECON | [address] | | | | | [place], | | | | | [place] [address] | | + + + + + | Holly Burrell | ECON | Unknown | | + + + + + Care Team Providers + +------+ + | Care Music Therapy Teacher Name | Role | Phone | + +------+ + | Jeremy Adrian MD | PCP | | + +------+ + Reason for Visit AUTH/CERT +--------+--------+ + + + + | Status | Reason | Specialty | Diagnoses / | Referred By | Referred To | | | | | Procedures | Contact | Contact | +--------+--------+ + + + + | | | | | | | +--------+--------+ + + + + Encounter Details +--------+ + + + + | Date | Type | Department | Care Team | Description | +--------+ + + + + | 09/13/ | Anesthesia | 6A Intra Op [facility] | Prasad, | | | 2018 | Event | [facility] | Doroteo Barahona MD | | | | | Admitting Desk | [address] | | | | | Located on the 9 | [facility], | | | | | floor [address] [place] [address] | | | | | [facility] | [phone] | | | | | [place], [place] | | | | | | [address] | | | +--------+ + + + + Anesthesia Record + + + + + | Procedure Name | Responsible | Anesthesia Start | Anesthesia Stop Time | | | Anesthesiologist | Time | | + + + + + | RADICAL NEPHRECTOMY | Dedrick Burgos MD | 09/13/17 0727 | 09/13/17 1448 | | (Right Abdomen) | | | | + + + + + +----+---+ + + | Da | T | Event | Comment | | te | i | | | | | m | | | | | e | | | +----+---+ + + | 06 | 0 | Eq Check | Anesthesia machine checked Equipment verified | | /1 | 6 | | | | 9/ | 5 | | | | 20 | 5 | | | | 18 | | | | +----+---+ + + | | 0 | Pt. Check | Prior to anesthesia start, pt. Identified, examined, chart | | | 7 | | reviewed, PARQ held, anesthetic plan made or approved by | | | 1 | | attending anesthesiologist. NPO status confirmed as appropriate | | | 2 | | for procedure Preoperative evaluation: unchanged | +----+---+ + + | | 0 | An Start | | | | 7 | | | | | 2 | | | | | 7 | | | +----+---+ + + | | 0 | An Start | | | | 7 | Data | | | | 3 | | | | | 0 | | | +----+---+ + + | | 0 | Vitals | Monitors applied Vital signs checked Patient ready for anesthesia | | | 7 | Checked | | | | 3 | | | | | 6 | | | +----+---+ + + | | 0 | ETT | | | | 7 | | | | | 4 | | | | | 5 | | | +----+---+ + + | | 0 | Art Line | | | | 7 | | | | | 5 | | | | | 8 | | | +----+---+ + + | | 0 | Central | | | | 8 | venous line | | | | 1 | | | | | 9 | | | +----+---+ + + | | 0 | Ready | | | | 8 | | | | | 2 | | | | | 3 | | | +----+---+ + + | | 0 | Abx | | | | 8 | Administere | | | | 5 | d | | | | 2 | | | +----+---+ + + | | 0 | Pause | | | | 8 | | | | | 5 | | | | | 3 | | | +----+---+ + + | | 0 | Incision | | | | 8 | | | | | 5 | | | | | 6 | | | +----+---+ + + | | 1 | vasc Clip | IVC clamped | | | 1 | On | | | | 2 | | | | | 4 | | | +----+---+ + + | | 1 | Quick Note | IVC is open | | | 1 | | | | | 3 | | | | | 0 | | | +----+---+ + + | | 1 | Quick Note | Specimen removed | | | 2 | | | | | 0 | | | | | 4 | | | +----+---+ + + | | 1 | Vasc Clip | | | | 3 | Off | | | | 3 | | | | | 9 | | | +----+---+ + + | | 1 | Quick Note | ICU team paged | | | 4 | | | | | 0 | | | | | 6 | | | +----+---+ + + | | 1 | ICU Handoff | Procedure Anesthetic Brief History Relevant | | | 4 | Call | Meds/Labs/Echo/Imaging Difficult airway? Intraoperative Course: | | | 1 | | Lines/drains EBL Significant Events Meds: Infusions, | | | 4 | | Antibiotics/Redosing, Paralytics (last dose and time), Analgesic | | | | | Plan Central line- will review image and place order in PACU | | | | | Surgeon concerns | +----+---+ + + | | 1 | Surgery end | | | | 4 | | | | | 3 | | | | | 2 | | | +----+---+ + + | | 1 | An Extubate | Neuromuscular function Intact. Pharynx suctioned. Patient obeys | | | 4 | | commands. Adequate pulmonary mechanics. | | | 3 | | | | | 9 | | | +----+---+ + + | | 1 | an stop | | | | 4 | data | | | | 4 | | | | | 0 | | | +----+---+ + + | | 1 | PACU Rpt | | | | 4 | Given | | | | 4 | | | | | 8 | | | +----+---+ + + | | 1 | Anesthesia | | | | 4 | End | | | | 4 | | | | | 8 | | | +----+---+ + + +------+ | Meds | +------+ + + + | Name | Total | + + + | fentaNYL | 100 mcg | + + + | lidocaine 2% | 70 mg | + + + | propofol | 100 mg | + + + | rocuronium | 90 mg | + + + | PHENYLEPHrine | 700 mcg | + + + | ondansetron | 4 mg | + + + | glycopyrrolate | 0.4 mg | + + + | neostigmine | 3 mg | + + + | cefUROXime | 3,000 mg | + + + | ketamine | 40 mg | + + + | ketamine INF (10mg/mL) | 59,892 mcg | + + + | methadone | 22 mg | + + + | norepinephrine INF (8mg/250mL) | 560.97 mcg | + + + | ePHEDrine | 15 mg | + + + | sodium acetate-chloride (50:50) | 472.5 mL | | 3% IV infusion (hypertonic) | | + + + | insulin regular | 4 Units | + + + | insulin regular INF (1unit/mL) | 3.73 Units | + + + | LR | 5,700 mL | + + + | NS | 500 mL | + + + + + | No agents on file. | + + + + | No blood administrations on file. | + + +--------+ + + + | Type | Details | Placement | Removal | +--------+ + + + | Incisi | 09/13/17; 0958; Right; | 09/13/17 0958 by | | | on | Transverse; abdomen | Zeb Hanson RN | | +--------+ + + + | Periph | 09/13/17; 0558; Left; Hand; 18 g; | 09/13/17 0558 by | 09/16/17 0800 by | | eral | Positive; 09/16/17; 0800 | Helen Ortiz RN | Xochilt Suarez RN | | IV | | | | +--------+ + + + | Periph | 09/13/17; 0749; Dedrick Cedeño, | 09/13/17 0749 by | 09/16/17 0800 by | | eral | MD; Right; Wrist; 16 g; 09/16/17; | Anil Alicea MD | Xochilt Suarez RN | | IV | 0800 | | | +--------+ + + + | Arteri | 09/13/17; 0758; Anil Alicea MD; | 09/13/17 0758 by | 09/14/17 0600 by Sharron | | al | Standard; Left; Radial; 20g; | Anil Alicea MD | NAHUM Velásquez | | Line | 09/14/17; 0600; Per order | | | +--------+ + + + | Urethr | 09/13/17; 0800; Rivero; 16 Fr.; 10 | 09/13/17 0800 by | 09/15/17 1300 by | | al | mL; 09/15/17; 1300 | Zeb Hanson RN | Gautam Cristobal RN | | Haydee | | | | | er | | | | +--------+ + + + | Double | 09/13/17; 818; Right; Neck; 9 | 09/13/17 0819 by | 09/14/17 1130 by | | Lumen | Fr.; Internal Jugular; 09/14/17; | Anil Alicea MD | Carlee Deras RN | | MAC | 1130 | | | | Cathet | | | | | er | | | | +--------+ + + + in this encounter Social History + + + +--------+ + [...] + + | 12/20/ | 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 | Nils Woody, | | | 2018 | Visit | | [address] | | | | | [address] | | | | | | [place], [place] | | | | | | [address] | | | | | | | | +--------+ + + + + as of this encounter Results ANE CVL (09/13/2017 9:52 AM) + + + | Narrative | Performed At | + + + | Anil Alicea MD 09/13/2017 9:52 AM Procedure | | | Information Central Venous Line Team pause: Performed per policy | | | Catheter type: Double-Lumen Introducer Sheath (MAC Cordis) Introducer | | | type: Hands-free CVL Location Performed: [place], Indications: | | | Assessment of intravascular volume and Administration of vasoactive | | | medications Informed Consent: Included in anesthesia consent, | | | Protective Barrier: Cap, Mask, Gown, Full-body drape, Hand scrub and | | | Gloves Vein locater technique: Ultrasound Guidance Ultrasound | | | image: Printed and placed in patient's chart Prep: ChloraPrep, | | | Draped: Fully draped Anesthesia Method: General anesthesia, | | | Insertion side: Right Insertion Site: Internal Jugular, Access | | | device: 18G, angiocath Position confirmation: Ultrasound and | | | Confirmed by manometry Catheter size: 9 Fr Catheter length: | | | Standard Port flush: Saline All Ports Aspirated for Blood | | | Line secured with: Suture Sterile field while applying dressing: | | | site covered with sterile gauze prior to removing drape, followed by | | | application of sterile dressing Guidewire confirmed to be | | | removed.without difficulties and intact Catheter through | | | Introducer:Hands Free CVL Assessment Number of attempts: 1st | | | Complications: None Attending physically present Attending Name: | | | DEDRICK BURGOS Performed by Resident ANIL ALICEA | | + + + ANE ETT (09/13/2017 9:51 AM) + + + | Narrative | Performed At | + + + | Anil Alicea MD 09/13/2017 9:51 AM Procedure Reason | | | for Intubation: For surgical procedure, Location Performed: [place] , | | | Patient was preoxygenated Mask Ventilation Grade 2 - Ventilated by | | | mask with oral airway/adjuvant Intubation Blade type: Kodi | | | , Blade size: 3, Atraumatic laryngoscopy: Atraumatic Laryngoscopy, | | | Intubation adjuncts: N/A , Laryngoscopic view: Grade I, Fiberoptics | | | used: N/A , Number of Attempts: 1, Positive for EtCO2: Yes, Breath | | | sounds: Bilateral and equal ETT Ett Adult: Single-lumen | | | cuffed ETT Size: 7.5 ETT secured with: adhesive tape Depth | | | at Lip: 22 Cm Narrative Attending physically | | | present Performed by Resident | | + + + ANE ART LINE (09/13/2017 9:50 AM) + + + | Narrative | Performed At | + + + | Anil Alicea MD 09/13/2017 9:51 AM Procedure ART LINE | | | Procedure Information Inserted: After Induction 5 minutes to | | | perform. Type Catheter: Arrow kit Indications: Beat to beat blood | | | pressure monitoring and Frequent lab draws Location Performed: [place] | | | Informed Consent: Included in anesthesia consent Protective Barrier: | | | Cap, Mask, Hand scrub and Sterile Gloves Skin Prep: Chloraprep | | | Draped: Partially draped Anesthesia Method: General anesthesia | | | Insertion side: Left Insertion Site: Radial Access device: 20g | | | Line secured by:Tape, Dressing Applied and StatLock Artery | | | locater technique: Ultrasound Assessment Number of attempts: | | | 2nd Complications: None Assessment: Catheter connected to pressure | | | line and flushed, catheter manually flushed, Tolerated procedure | | | well and Perfusion checked distal to catheter Attending physically | | | present Attending Name: DEDRICK BURGOS Performed by Resident | | | Name: ANIL ALICEA Successful cannulation on second attempt with | | | ultrasound. | | + + + in this encounter Visit Diagnoses Not on filein this encounter Administered Medications + +--------+ + +------+------+ | Medication Order | MAR | Action | Dose | Rate | Site | | | Action | Date | | | | + +--------+ + +------+------+ | cefuroxime (ZINACEF) injection | Given | | 1,500 mg | | | | intravenous, INTRAPROCEDURE PRN, | | 8 08:52 | | | | | Starting 09/13/17 at 0852, | | PDT | | | | | Until Discontinued | | | | | | + +--------+ + +------+------+ +-------+ + +---+---+ | Given | | 1,500 mg | | | | | 8 12:50 | | | | | | PDT | | | | +-------+ + +---+---+ +---+---+ | | | +---+---+ + +-------+ +------+---+---+ | ePHEDrine injection | Given | | 5 mg | | | | intravenous, INTRAPROCEDURE PRN, | | 8 09:24 | | | | | Starting 09/13/17 at 0924, | | PDT | | | | | Until Discontinued | | | | | | + +-------+ +------+---+---+ +-------+ +------+---+---+ | Given | | 5 mg | | | | | 8 09:35 | | | | | | PDT | | | | +-------+ +------+---+---+ | Given | | 5 mg | | | | | 8 11:33 | | | | | | PDT | | | | +-------+ +------+---+---+ +---+---+ | | | +---+---+ + +-------+ +--------+---+---+ | fentaNYL citrate (PF) | Given | | 50 mcg | | | | (SUBLIMAZE) injection | | 8 07:32 | | | | | intravenous, INTRAPROCEDURE PRN, | | PDT | | | | | Starting 09/13/17 at 0732, | | | | | | | Until Discontinued | | | | | | + +-------+ +--------+---+---+ +-------+ +--------+---+---+ | Given | | 50 mcg | | | | | 8 07:37 | | | | | | PDT | | | | +-------+ +--------+---+---+ +---+---+ | | | +---+---+ + +-------+ +--------+---+---+ | glycopyrrolate (ROBINUL) | Given | | 0.4 mg | | | | injection intravenous, | | 8 14:30 | | | | | INTRAPROCEDURE PRN, Starting Tue | | PDT | | | | | 09/13/17 at 1430, Until Tue | | | | | | | 09/13/17 at 1440 | | | | | | + +-------+ +--------+---+---+ +---+---+ | | | +---+---+ + +-------+ +---------+---+---+ | insulin regular bolus from | Given | | 4 Units | | | | continuous infusion | | 8 12:23 | | | | | INTRAPROCEDURE PRN, Starting Tue | | PDT | | | | | 09/13/17 at 1223, Until | | | | | | | Discontinued | | | | | | + +-------+ +---------+---+---+ +---+---+ | | | +---+---+ + +---------+ + +---------+---+ | insulin regular in NaCl 0.9% IV | New Bag | | 2 | 2 mL/hr | | | infusion (1 unit/mL) | | 8 12:23 | Units/hr | | | | INTRAPROCEDURE CONTINUOUS PRN, | | PDT | | | | | Starting 09/13/17 at 1223, | | | | | | | Until Discontinued | | | | | | + +---------+ + +---------+---+ +---+---+ | | | +---+---+ + +-------+ +-------+---+---+ | ketamine (KETALAR) injection | Given | | 30 mg | | | | INTRAPROCEDURE PRN, Starting Tue | | 8 07:40 | | | | | 09/13/17 at 0853, Until | | PDT | | | | | Discontinued | | | | | | + +-------+ +-------+---+---+ +-------+ +-------+---+---+ | Given | | 10 mg | | | | | 8 08:53 | | | | | | PDT | | | | +-------+ +-------+---+---+ +---+---+ | | | +---+---+ + +---------+ + +-------+---+ | ketamine (KETALAR) IV infusion | New Bag | | 4 | 1.66 | | | INTRAPROCEDURE CONTINUOUS PRN, | | 8 09:06 | mcg/kg/m | mL/hr | | | Starting Tue09/13/17 at 0906, | | PDT | in | | | | Until Discontinued | | | | | | + +---------+ + +-------+---+ +---+---+ | | | +---+---+ + + + +---+---+---+ | lactated Ringers IV | given by | | | | | | INTRAPROCEDURE CONTINUOUS PRN, | | 8 12:52 | | | | | Starting Tue09/13/17 at 0727, | anesthes | PDT | | | | | Until Discontinued | iology | | | | | + + + +---+---+---+ + + +---+---+---+ | given by anesthesiology | | | | | | | 8 13:18 | | | | | | PDT | | | | + + +---+---+---+ | given by anesthesiology | | | | | | | 8 14:06 | | | | | | PDT | | | | + + +---+---+---+ +---+---+ | | | +---+---+ + +-------+ +-------+---+---+ | lidocaine PF (XYLOCAINE MPF) 20 | Given | | 70 mg | | | | mg/mL (2 %) injection | | 8 07:40 | | | | | INTRAPROCEDURE PRN, Starting Tue | | PDT | | | | | 09/13/17 at 0740, Until | | | | | | | Discontinued | | | | | | + +-------+ +-------+---+---+ +---+---+ | | | +---+---+ + +-------+ +-------+---+---+ | methadone (DOLOPHINE) injection | Given | | 22 mg | | | | INTRAPROCEDURE PRN, Starting | | 8 08:26 | | | | | 09/13/17 at 0826, Until | | PDT | | | | | Discontinued | | | | | | + +-------+ +-------+---+---+ +---+---+ | | | +---+---+ + +-------+ +------+---+---+ | neostigmine (PROSTIGMIN) | Given | | 3 mg | | | | injection intravenous, | | 8 14:30 | | | | | INTRAPROCEDURE PRN, Starting Tue | | PDT | | | | | 09/13/17 at 1430, Until Tue | | | | | | | 09/13/17 at 1440 | | | | | | + +-------+ +------+---+---+ +---+---+ | | | +---+---+ + + + + +-------+---+ | norepinephrine (LEVOPHED) | Rate/Dos | | 0.03 | 3.88 | | | 8mg/250 mL (0.032 mg/mL) IV | e Change | 8 13:42 | mcg/kg/m | mL/hr | | | infusion (RTU) INTRAPROCEDURE | | PDT | in | | | | CONTINUOUS PRN, Starting Tue | | | | | | | 09/13/17 at 0830, Until | | | | | | | Discontinued | | | | | | + + + + +-------+---+ + + + +-------+---+ | Rate/Dose Change | | 0.02 | 2.59 | | | | 8 13:47 | mcg/kg/m | mL/hr | | | | PDT | in | | | + + + +-------+---+ | Rate/Dose Change | | 0.01 | 1.29 | | | | 8 13:59 | mcg/kg/m | mL/hr | | | | PDT | in | | | + + + +-------+---+ +---+---+ | | | +---+---+ + +-------+ +------+---+---+ | ondansetron (ZOFRAN) injection | Given | | 4 mg | | | | intravenous, INTRAPROCEDURE PRN, | | 8 13:48 | | | | | Starting 09/13/17 at 1348, | | PDT | | | | | Until 09/13/17 at 1440 | | | | | | + +-------+ +------+---+---+ +---+---+ | | | +---+---+ + +-------+ +---------+---+---+ | PHENYLEPHrine 100 mcg/mL IV | Given | | 100 mcg | | | | syringe INTRAPROCEDURE PRN, | | 8 11:33 | | | | | Starting 09/13/17 at 0758, | | PDT | | | | | Until Discontinued | | | | | | + +-------+ +---------+---+---+ +-------+ +---------+---+---+ | Given | | 100 mcg | | | | | 8 11:57 | | | | | | PDT | | | | +-------+ +---------+---+---+ | Given | | 100 mcg | | | | | 8 14:23 | | | | | | PDT | | | | +-------+ +---------+---+---+ +---+---+ | | | +---+---+ + +-------+ +-------+---+---+ | propofol intravenous, | Given | | 50 mg | | | | INTRAPROCEDURE PRN, Starting Tue | | 8 07:40 | | | | | 09/13/17 at 0740, Until | | PDT | | | | | Discontinued | | | | | | + +-------+ +-------+---+---+ +-------+ +-------+---+---+ | Given | | 30 mg | | | | | 8 07:45 | | | | | | PDT | | | | +-------+ +-------+---+---+ | Given | | 20 mg | | | | | 8 07:47 | | | | | | PDT | | | | +-------+ +-------+---+---+ +---+---+ | | | +---+---+ + +-------+ +-------+---+---+ | rocuronium (ZEMURON) injection | Given | | 20 mg | | | | intravenous, INTRAPROCEDURE PRN, | | 8 08:51 | | | | | Starting 09/13/17 at 0851, | | PDT | | | | | Until Discontinued | | | | | | + +-------+ +-------+---+---+ +-------+ +-------+---+---+ | Given | | 10 mg | | | | | 8 10:04 | | | | | | PDT | | | | +-------+ +-------+---+---+ | Given | | 20 mg | | | | | 8 12:09 | | | | | | PDT | | | | +-------+ +-------+---+---+ +---+---+ | | | +---+---+ + + + + + +---+ | sodium acetate-chloride (50:50) | Rate/Dos | | 70 mL/hr | 70 mL/hr | | | 3% IV infusion (hypertonic) 50 | e Change | 8 09:26 | | | | | mL/hr, intravenous, PROCEDURE | | PDT | | | | | CONTINUOUS, Starting 09/13/17 | | | | | | | at 0700, Until e 09/13/17 at | | | | | | | 1555 | | | | | | + + + + + +---+ + + + + +---+ | Rate/Dose Change | | 100 | 100 | | | | 8 11:29 | mL/hr | mL/hr | | | | PDT | | | | + + + + +---+ | Rate/Dose Change | | 70 mL/hr | 70 mL/hr | | | | 8 13:41 | | | | | | PDT | | | | + + + + +---+ +---+---+ | | | +---+---+ + +---------+ +---+---+---+ | sodium chloride 0.9% IV | New Bag | | | | | | infusion INTRAPROCEDURE | | 8 12:12 | | | | | CONTINUOUS PRN, Starting Tue | | PDT | | | | | 09/13/17 at 1212, Until | | | | | | | Discontinued | | | | | | + +---------+ +---+---+---+ + + +---+---+---+ | given by anesthesiology | | | | | | | 8 13:18 | | | | | | PDT | | | | + + +---+---+---+ +---+---+ | | | +---+---+ in this encounter"
--- OUTSIDE RECORDS SUMMARY | ~2017-11-22 | XMS | Encounter Summary ---
Demographics + + + | Address | [address] | | | [place] [address] | + + + | Home Phone | | + + + | Preferred Language | Unknown | + + + | Marital Status | | + + + | Anglican Affiliation | LDS | + + + | Race | White | + + + | Ethnic Group | Not or | + + + Author + + + | Author | [facility] | + + + | Organization | [facility] | + + + | Address | Unknown | + + + | Phone | Unavailable | + + + Support + + + + + | Name | Relationship | Address | Phone | + + + + + | MILLY NGUYEN | ECON | [address] | | | | | [place], | | | | | [place] [address] | | + + + + + | Holly Burrell | ECON | Unknown | | + + + + + Care Team Providers + +------+ + | Care Pharmacy Associate Name | Role | Phone | + +------+ + | Jeremy Adrian MD | PCP | | + +------+ + Encounter Details +--------+ + + + + | Date | Type | Department | Care Team | Description | +--------+ + + + + | 08/23/ | Abstract | [facility]rology at [facility] | Uro, Gen [address] | | | 2018 | | [address] | [place] | | | | | Mail Code: [id number] | Road [place], [place] | | | | | [facility] | [address] | | | | | and [address], | | | | | | Floor [place], [place] | | | | | | [address] | | | | | | [phone] | | | +--------+ + + + [...] + + | 12/20/ | 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
--- OUTSIDE RECORDS SUMMARY | ~2017-11-22 | XMS | Encounter Summary ---
Demographics + + + | Address | [address] | | | [place] [address] | + + + | Home Phone | | + + + | Preferred Language | Unknown | + + + | Marital Status | | + + + | Episcopal Affiliation | Unknown | + + + | Race | Unknown | + + + | Ethnic Group | Unknown | + + + Author + + + | Author | [facility] | + + + | Organization | [facility] | + + + | Address | Unknown | + + + | Phone | Unavailable | + + + Support + + +---------+ + | Name | Relationship | Address | Phone | + + +---------+ + | Yuki Nguyen | ECON | Unknown | | + + +---------+ + Care Team Providers + +------+ + | Care Sane Rn Name | Role | Phone | + +------+ + | Jeremy Adrian MD | PCP | | + +------+ + Reason for Visit +--------+ + | Reason | Comments | +--------+ + | Other | DR[facility] GABRIELLA [facility] | +--------+ + Encounter Details +--------+ + + + + | Date | Type | Department | Care Team | Description | +--------+ + + + + | 11/14/ | Documentati | [facility] | Gabriella, | Sangeetha (DR. RYE | | 2018 | on Only | Hematology and | Stephanie Dubon MD | GABRIELLA, | | | | Oncology [address] | [facility] ) | | | | [address] | [place] | | | | | [place] | [address] | | | | | [address] | | | | | | [phone] | | | +--------+ + + + [...] [place] | | | | | | [address] | | | | | | | | +--------+---------+ + + + as of this encounter Visit Diagnoses Not on filein this encounter"
--- OUTSIDE RECORDS SUMMARY | ~2017-11-22 | XMS | Encounter Summary ---
Demographics + + + | Address | [address] | | | [place] [address] | + + + | Home Phone | | + + + | Preferred Language | Unknown | + + + | Marital Status | | + + + | Orthodox Affiliation | Unknown | + + + | Race | Unknown | + + + | Ethnic Group | Unknown | + + + Author + + + | Author | [facility] | + + + | Organization | [facility] | + + + | Address | Unknown | + + + | Phone | Unavailable | + + + Support + + +---------+ + | Name | Relationship | Address | Phone | + + +---------+ + | Yuki Nguyen | ECON | Unknown | | + + +---------+ + Care Team Providers + +------+ + | Care Pharmacist Apprentice Name | Role | Phone | + +------+ + | Jeremy Adrian MD | PCP | | + +------+ + Reason for Visit + + + | Reason | Comments | + + + | Post-op Problem | 09/13 "They 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 my kidney and now I can't eat solids" hx cancer | + + + | Referral | "I saw the ENT doctor today and he said I need to get checked | | | out" | + + + Encounter Details +--------+ + + + + | Date | Type | Department | Care Team | Description | +--------+ + + + + | 10/31/ | [facility] Katalina Bernal, | Other dysphagia | | 2018 | | [facility] | DO [address] | (Primary Dx) | | | | Emergency Department | [place] [address] | | | | | [address] | [phone] | | | | | [place] [address] | | | | | | [phone] | | | +--------+ + + + [...] + + + | Blood Pressure | 167/81 | 10/31/2017 7:42 PM PDT | + + + + | Pulse | 83 | 10/31/2017 7:42 PM PDT | + + + + | Temperature | 36.7 C (98 F) | 10/31/2017 7:42 PM PDT | + + + + | Respiratory Rate | 16 | 10/31/2017 7:42 PM PDT | + + + + | Oxygen Saturation | 99% | 10/31/2017 7:42 PM PDT | + + + + | Inhaled Oxygen | - | - | | Concentration | | | + + + + | Weight | 67.8 kg (149 lb 7.6 | 10/31/2017 6:01 PM PDT | | | oz) | | + + + + | Height | - | - | + + + + | Body Mass Index | 23.76 | 10/31/2017 6:01 PM PDT | + + + + in this encounter Medications at Time of Discharge + + +---------+---------+ + + | Medication | Sig. | Disp. | Refills | Start | End Date | | | | | | Date | | + + +---------+---------+ + + | aspirin 81 MG | Take by mouth. | | | 09/19/19 | | | chewable tablet | | | | 18 | | + + +---------+---------+ + + | Canagliflozin | Take by mouth | | | | | | (INVOKANA PO) | daily. | | | | | + + +---------+---------+ + + | Canagliflozin | Take by mouth. | | | 07/22/19 | | | (INVOKANA) 100 MG | | | | 16 | | | tablet | | | | | | + + +---------+---------+ + + | insulin glargine | Inject into the | | | 07/22/19 | | | (LANTUS SOLOSTAR) | skin. | | | 16 | | | 100 UNIT/ML | | | | | | | injection | | | | | | + + +---------+---------+ + + | insulin glargine | Inject into the | | | | | | (LANTUS) 100 UNIT/ML | skin daily. | | | | | | injection | | | | | | + + +---------+---------+ + + | metFORMIN | Take 1500 mg by | | | | | | (GLUCOPHAGE) 500 MG | mouth every morning | | | | | | tablet | and 1000 mg by mouth | | | | | | | every evening | | | | | + + +---------+---------+ + + | METFORMIN HCL PO | Take by mouth 2 | | | | | | | (two) times daily. | | | | | + + +---------+---------+ + + | ondansetron | Take 1 tablet by | 40 | 1 | 10/11/19 | | | (ZOFRAN) 8 MG | mouth every 8 | tablet | | 18 | | | tabletIndications: | (eight) hours as | | | | | | Cancer of kidney, | needed for Nausea. | | | | | | right ([facility]) | | | | | | + + +---------+---------+ + + | pantoprazole | Take by mouth. | | | | | | (PROTONIX) 40 MG | | | | | | | tablet | | | | | | + + +---------+---------+ + + | Pantoprazole | Take by mouth | | | | | | Sodium (PROTONIX PO) | daily. | | | | | + + +---------+---------+ + + | prochlorperazine | Take 1 tablet by | 40 | 1 | 10/11/19 | | | (COMPAZINE) 10 MG | mouth every 6 (six) | tablet | | 18 | | | tabletIndications: | hours as needed for | | | | | | Cancer of kidney, | Nausea or Vomiting. | | | | | | right (HCC) | | | | | | + + +---------+---------+ + + | simvastatin | Take by mouth. | | | | | | (ZOCOR) 40 MG tablet | | | | | | + + +---------+---------+ + + | SIMVASTATIN PO | Take by mouth | | | | | | | daily. | | | | | + + +---------+---------+ + + | SUNItinib (SUTENT) | Take 1 capsule by | 28 | 11 | 10/11/19 | | | 37.5 MG | mouth daily for 336 | capsule | | 18 | 9 | | capsuleIndications: | days. Take once | | | | | | Cancer of kidney, | daily x 4 weeks | | | | | | right (HCC) | followed by a 2 week | | | | | | | rest period. | | | | | + + +---------+---------+ + + | Valsartan (DIOVAN | Take by mouth | | | | | | PO) | daily. | | | | | + + +---------+---------+ + + | | Take by mouth. | | | 07/03/19 | | | valsartan-hydrochlor | | | | 16 | | | othiazide | | | | | | | (DIOVAN-HCT) | | | | | | | 160-12.5 MG per | | | | | | | tablet | | | | | | + + +---------+---------+ + + as of this encounter Plan of Treatment +--------+---------+ + + + | Date | Type | Specialty | Care Team | Description | +--------+---------+ + + + | 12/21/ | Office | Hematology and | Gabriella, | | | 2018 | Visit | Oncology | Stephanie Dubon MD | | | | | | [address] | | | | | | [place] | | | | | | [address] | | | | | | | | +--------+---------+ + + + as of this encounter Procedures + +--------+ + + + | Procedure Name | Priori | Date/Time | Associated Diagnosis | Comments | | | ty | | | | + +--------+ + + + | URINALYSIS (REFLEX | STAT | 10/31/2017 | | Results for this | | TO | | 7:11 PM | | procedure are in the | | MICROSCOPIC/REFLEX | | PDT | | results section. | | TO CULTURE) | | | | | + +--------+ + + + | APTT | STAT | 10/31/2017 | | Results for this | | | | 6:33 PM | | procedure are in the | | | | PDT | | results section. | + +--------+ + + + | PROTIME-INR | STAT | 10/31/2017 | | Results for this | | | | 6:33 PM | | procedure are in the | | | | PDT | | results section. | + +--------+ + + + | CBC W/AUTO DIFF | STAT | 10/31/2017 | | Results for this | | (REFLEX TO MANUAL) | | 6:33 PM | | procedure are in the | | | | PDT | | results section. | + +--------+ + + + | MAGNESIUM | STAT | 10/31/2017 | | Results for this | | | | 6:33 PM | | procedure are in the | | | | PDT | | results section. | + +--------+ + + + | LIPASE | STAT | 10/31/2017 | | Results for this | | | | 6:33 PM | | procedure are in the | | | | PDT | | results section. | + +--------+ + + + | COMPREHENSIVE | STAT | 10/31/2017 | | Results for this | | METABOLIC PANEL | | 6:33 PM | | procedure are in the | | | | PDT | | results section. | + +--------+ + + + in this encounter Results Urinalysis (reflex to micro/reflex to culture) (10/31/2017 7:11 PM) + + + + + | Component | Value | Ref Range | Performed At | + + + + + | COLOR UA | COLORLESS | | [facility] | + + + + + | CLARITY | CLEAR | | [facility] | + + + + + | Specific [place], UA | 1.006 | 1.002 - 1.030 | [facility] | + + + + + | LEUKOCYTE ESTERASE | NEGATIVE | NEGATIVE | [facility] | + + + + + | NITRITE | NEGATIVE | NEGATIVE | [facility] | + + + + + | UROBILINOGEN | NORMAL | <1.1 mg/dL | [facility] | + + + + + | PROTEIN | NEGATIVE | NEGATIVE mg/dL | [facility] | + + + + + | PH,URINE | 7.0 | 5.0 - 8.0 | [facility] | + + + + + | BLOOD | NEGATIVE | NEGATIVE | [facility] | + + + + + | KETONES | NEGATIVE | NEGATIVE mg/dL | [facility] | + + + + + | BILIRUBIN | NEGATIVE | NEGATIVE | [facility] | + + + + + | GLUCOSE | >500 (A)Comment: Testing | NEGATIVE mg/dL | [facility] | | | performed at [facility] | | | | | [place], [place] | | | | | [address] | | | + + + + + + + | Specimen | + + | Urine, Clean Catch | + + + + + + + | Performing | Address | City/State/Zipcode | Phone Number | | Organization | | | | + + + + + | [facility] | [address] | [place] [address] | | + + + + + Lipase (10/31/2017 6:33 PM) + + + + + | Component | Value | Ref Range | Performed At | + + + + + | LIPASE | 146Comment: Testing | 73 - 393 U/L | [facility] | | | performed at [facility];[address];[place] | | | | | [address] | | | + + + + + + + | Specimen | + + | Blood | + + + + + + + | Performing | Address | City/State/Zipcode | Phone Number | | Organization | | | | + + + + + | [facility] | [address] | [place] [address] | | + + + + + aPTT (10/31/2017 6:33 PM) + + + + + | Component | Value | Ref Range | Performed At | + + + + + | APTT | 30Comment: Testing | 23 - 32 seconds | [facility] | | | performed at [facility];[address];[place] | | | | | [address] | | | + + + + + + + | Specimen | + + | Blood | + + + + + + + | Performing | Address | City/State/Zipcode | Phone Number | | Organization | | | | + + + + + | [facility] | [address] | [place] [address] | | + + + + + Protime (10/31/2017 6:33 PM) + + + + + | Component | Value | Ref Range | Performed At | + + + + + | INR | 1.0Comment: REFERENCE | | [facility] | | | RANGE:0.9 - | | | | | 1.2 NON-ANTICOAGULATE | | | | | D2.0 - 3.0 ALL OTHER | | | | | THERAPEUTIC | | | | | INDICATIONS2.5 - 3.5 | | | | | MECHANICAL HEART VALVES, | | | | | RECURRENT OR SYSTEMIC | | | | | EMBOLISMTesting | | | | | performed at [facility];[address] | | | | | [facility];[place] | | | | | [address] | | | + + + + + + + | Specimen | + + | Blood | + + + + + + + | Performing | Address | City/State/Zipcode | Phone Number | | Organization | | | | + + + + + | [facility] | [address] | [place] [address] | | + + + + + Magnesium (10/31/2017 6:33 PM) + + + + + | Component | Value | Ref Range | Performed At | + + + + + | MAGNESIUM | 2.5 (H)Comment: Testing | 1.7 - 2.4 mg/dL | [facility] | | | performed at [facility];[address] | | | | | [facility], [place] | | | | | [address] | | | + + + + + + + | Specimen | + + | Blood | + + + + + + + | Performing | Address | City/State/Zipcode | Phone Number | | Organization | | | | + + + + + | [facility] | [address] | [place] [address] | | + + + + + Comprehensive metabolic panel (10/31/2017 6:33 PM) + + + + + | Component | Value | Ref Range | Performed At | + + + + + | SODIUM | 139 | 135 - 145 mmol/L | [facility] | + + + + + | POTASSIUM | 4.2 | 3.5 - 4.9 mmol/L | [facility] | + + + + + | CHLORIDE | 104 | 99 - 109 mmol/L | [facility] | + + + + + | CO2 | 28 | 23 - 32 mmol/L | [facility] | + + + + + | ANION GAP AGAP | 12 | 5 - 20 mmol/L | [facility] | + + + + + | GLUCOSE | 128 (H) | 65 - 99 mg/dL | [facility] | + + + + + | BUN | 23 | 8 - 25 mg/dL | [email or web address] | + + + + + | CREATININE | 1.3 | 0.70 - 1.30 mg/dL | [facility] | + + + + + | BUN/CREAT | 18 | | [facility] | + + + + + | CALCIUM | 9.3 | 8.5 - 10.5 mg/dL | [facility] | + + + + + | TOTAL PROTEIN | 8.7 (H) | 6.3 - 8.2 g/dL | [facility] | + + + + + | Albumin | 3.8 | 3.3 - 4.8 g/dL | [facility] | + + + + + | GLOBULIN | 5.0 (H) | 1.3 - 4.9 g/dL | [facility] | + + + + + | A/G | 0.8 (L) | 1.0 - 2.4 | [facility] | + + + + + | TBIL | 0.3 | 0.1 - 1.5 mg/dL | [facility] | + + + + + | ALK PHOS | 123 (H) | 35 - 115 U/L | [facility] | + + + + + | AST | 11 | 10 - 45 U/L | [facility] | + + + + + | ALT | 16 | 10 - 65 U/L | [facility] | + + + + + | EGFR | 54 (L)Comment: GFR <60: | >60 mL/min/1.73m2 | [facility] | | | CHRONIC KIDNEY DISEASE, | | | | | IF FOUND OVER A 3 MONTH | | | | | PERIOD.GFR <15: KIDNEY | | | | | FAILURE.FOR | | | | | AMERICANS, MULTIPLY THE | | | | | CALCULATED GFR BY | | | | | 1.210.This eGFR is | | | | | calculated using the | | | | | [facility] traceable | | | | | equation.Testing | | | | | performed at [facility] | | | | | [facility];[place], [place] | | | | | [address] | | | + + + + + + + | Specimen | + + | Blood | + + + + + + + | Performing | Address | City/State/Zipcode | Phone Number | | Organization | | | | + + + + + | [facility] | [address] | [place] [address] | | + + + + + CBC with differential (10/31/2017 6:33 PM) + + + + + | Component | Value | Ref Range | Performed At | + + + + + | WBC | 7.10 | 3.80 - 11.00 K/uL | [facility] | + + + + + | RBC | 4.50 | 4.20 - 5.70 M/uL | [facility] | + + + + + | HGB | 10.5 (L) | 13.2 - 17.0 g/dL | [facility] | + + + + + | HCT | 34.1 (L) | 39.0 - 50.0 % | [facility] | + + + + + | MCV | 75.8 (L) | 80.0 - 100.0 fl | [facility] | + + + + + | MCH | 23.2 (L) | 27.0 - 34.0 pg | [facility] | + + + + + | MCHC | 30.6 (L) | 32.0 - 35.5 g/dL | [facility] | + + + + + | RDW SD | 48.1 | 37 - 53 fl | [facility] | + + + + + | PLT | 383 | 150 - 400 K/uL | [facility] | + + + + + | MPV | 9.0 | fl | [facility] | + + + + + | DIFF TYPE | AUTOMATED | | [facility] | + + + + + | NEUTROPHILS | 62.52 | % | [facility] | + + + + + | LYMPHOCYTES | 23.13 | % | [facility] | + + + + + | MONOCYTES | 9.28 | % | [facility] | + + + + + | EOSINOPHILS | 4.38 | % | [facility] | + + + + + | BASOPHILS | 0.69 | % | [facility] | + + + + + | NEUTROPHILS ABS | 4.44 | 1.90 - 7.40 K/uL | [facility] | + + + + + | LYMPHOCYTES ABS | 1.64 | 1.00 - 3.90 K/uL | [facility] | + + + + + | MONOCYTES ABS | 0.66 | 0.00 - 0.80 K/uL | [facility] | + + + + + | EOSINOPHILS ABS | 0.31 | 0.00 - 0.50 K/uL | [facility] | + + + + + | BASOPHILS ABS | 0.05 | 0.00 - 0.10 K/uL | [facility] | + + + + + | MORPHOLOGY | 1+ | | [facility] | | | Comment: | | | | | POIK | | | | | 2+ | | | | | MICRO | | | | | 1+ | | | | | HYPO | | | | | NORMAL PLT MORPH | | | | | | | | + + + + + | Platelet Estimate | ADEQUATE | | [facility] | + + + + + | Diff Comment | SLIDE SCANNED, AGREES | | [facility] | | | WITH AUTOMATED | | | | | RESULTS.Comment: Testing | | | | | performed at [facility];[address] | | | | | [address];[place] | | | | | [address] | | | + + + + + + + | Specimen | + + | Blood | + + + + + + + | Performing | Address | City/State/Zipcode | Phone Number | | Organization | | | | + + + + + | [facility] | [address] | [place] [address] | | + + + + + in this encounter Visit Diagnoses + + | Diagnosis | + + | Other dysphagia - Primary | + + Admitting Diagnoses + + | Diagnosis | + + | Other dysphagia | + + Administered Medications + +---------+ +--------+------+------+ | Medication Order | MAR | Action | Dose | Rate | Site | | | Action | Date | | | | + +---------+ +--------+------+------+ | lactated ringers (LR) bolus | New Bag | 10/31/2017 | 1,000 | | | | 1,000 mL 1,000 mL, Intravenous, | | 18:38 | mLs | | | | Administer over 5 Minutes, Once, | | PDT | | | | | 10/31/17 at 1829, For 1 dose | | | | | | + +---------+ +--------+------+------+ + +---+ | | | + +---+ | sodium chloride 0.9 % flush 10 | | | mL 10 mL, Intravenous, Every 8 | | | Hours, First dose on 10/31/17 | | | at 1829 | | + +---+ | | | + +---+ in this encounter
--- OUTSIDE RECORDS SUMMARY | ~2017-11-22 | XMS | Encounter Summary ---
Demographics + + + | Address | [address] | | | [place] [address] | + + + | Home Phone | | + + + | Preferred Language | Unknown | + + + | Marital Status | | + + + | Advent Affiliation | Unknown | + + + | Race | Unknown | + + + | Ethnic Group | Unknown | + + + Author + + + | Author | [facility] | + + + | Organization | [facility] | + + + | Address | Unknown | + + + | Phone | Unavailable | + + + Support + + +---------+ + | Name | Relationship | Address | Phone | + + +---------+ + | Yuki Nguyen | ECON | Unknown | | + + +---------+ + Care Team Providers + +------+ + | Care Dobie Worker Name | Role | Phone | + +------+ + | Jeremy Adrian MD | PCP | | + +------+ + Encounter Details +--------+ + + + + | Date | Type | Department | Care Team | Description | +--------+ + + + + | 10/10/ | Orders Only | [facility] | Radha Miller RP | | | 2017 | | [address] | | | | | | [place] | | | | | | [address] | | | +--------+ + + + [...] MD | | | | | | [address] | | | | | | [place] | | | | | | [address] | | | | | | | | +--------+---------+ + + + as of this encounter Visit Diagnoses Not on filein this encounter"
--- OUTSIDE RECORDS SUMMARY | ~2017-11-22 | XMS | Encounter Summary ---
Demographics + + + | Address | [address] | | | [place] [address] | + + + | Home Phone | | + + + | Preferred Language | Unknown | + + + | Marital Status | | + + + | Zoroastrian Affiliation | Unknown | + + + | Race | Unknown | + + + | Ethnic Group | Unknown | + + + Author + + + | Author | [facility] | + + + | Organization | [facility] | + + + | Address | Unknown | + + + | Phone | Unavailable | + + + Support + + +---------+ + | Name | Relationship | Address | Phone | + + +---------+ + | Yuki Nguyen | ECON | Unknown | | + + +---------+ + Care Team Providers + +------+ + | Care Real Estate Clerk Name | Role | Phone | + +------+ + PCP | Unavailable | + +------+ + Reason for Visit +--------+ + | Reason | Comments | +--------+ + | Other | PATH/OP NOTE, JO-ANN | +--------+ + Encounter Details +--------+ + + + + | Date | Type | Department | Care Team | Description | +--------+ + + + + | 09/13/ | Documentati | [facility] | Gabriella, | Other (PATH/OP NOTE, | | 2017 | on Only | Hematology and | Stephanie Dubon MD | [facility]) | | | | Oncology [address] | | | | | [address] | [place] | | | | | [place] | [address] | | | | | [address] | | | | | | [phone] | | | +--------+ + + + + Social History + +-------+ +--------+------+ | Tobacco Use | Types | Packs/Day | Years | Date | | | | | Used | | + +-------+ +--------+------+ | Never Assessed | | | | | + +-------+ +--------+------+ + + + | Sex Assigned at [...] [place] | | | | | | [address] | | | | | | | | +--------+---------+ + + + as of this encounter Visit Diagnoses Not on filein this encounter"
--- OUTSIDE RECORDS SUMMARY | ~2017-11-22 | XMS | Encounter Summary ---
Demographics + + + | Address | [address] | | | [place] [address] | + + + | Home Phone | | + + + | Preferred Language | Unknown | + + + | Marital Status | | + + + | Worship Affiliation | LDS | + + + | Race | White | + + + | Ethnic Group | Not or | + + + Author + + + | Author | [facility] | + + + | Organization | [facility] | + + + | Address | Unknown | + + + | Phone | Unavailable | + + + Support + + + + + | Name | Relationship | Address | Phone | + + + + + | MILLY NGUYEN | ECON | [address] | | | | | [place], | | | | | [place] [address] | | + + + + + | Holly Burrell | ECON | Unknown | | + + + + + Care Team Providers + +------+ + | Care Major Account Representative Name | Role | Phone | + [...] Request | | Radiology | Diagnoses | Azeem, | | | | | | 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[address], | | | | | | right kidney | ,[facility] [address] | | | | | | with | [address] | | | | | | thrombus of | [address] | | | | | | IVC (HCC) | Rd | | | | | | Procedures | [place], [place] | | | | | | [facility] | [address] | | | | | | ABDOMINAL | Phone: | | | | | | [facility] | [phone] | | | | | | [address]IN | Fax: | | | | | | | [phone] | | + +--------+ + + + + Encounter Details +--------+ + + + + | Date | Type | Department | Care Team | Description | +--------+ + + + + | 09/17/ | Electro Optics Engineer | Vascular Surgery | Azeem Eder Yepez, | 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[address] | ,[facility]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[address]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) | | | | [address] | [place], [place] | (Primary Dx) | | | | Mailcode: OP11 | [address] | | | | | Physicians Mick | [phone] | | | | | [place], [place] | | | | | | [address] | | | | | | [phone] | | | +--------+ + + + [...] + + | 12/20/ | Diagnostic | Wheel Worker | Nils Woody, | | | 2017 | Visit | | Keyla [facility] [address] | | | | | | [address] [facility] | | | | | | [place], [place] | | | | | | [address] | | | | | | | | +--------+ + + + + as of this encounter Results [facility] ABDOMINAL [facility] ARTERY VEIN (10/21/2017 [...] Note | + + | Service Account, [employer] In Interface - 10/21/2017 2:39 PM [...] 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
--- OUTSIDE RECORDS SUMMARY | ~2017-11-22 | XMS | Encounter Summary ---
Demographics + + + | Address | [address] | | | [place] [address] | + + + | Home Phone | | + + + | Preferred Language | Unknown | + + + | Marital Status | | + + + | Mormon Affiliation | Unknown | + + + | Race | Unknown | + + + | Ethnic Group | Unknown | + + + Author + + + | Author | [facility] | + + + | Organization | [facility] | + + + | Address | Unknown | + + + | Phone | Unavailable | + + + Support + + +---------+ + | Name | Relationship | Address | Phone | + + +---------+ + | Yuki Nguyen | ECON | Unknown | | + + +---------+ + Care Team Providers + +------+ + | Care Mechanical Spreader Operator Name | Role | Phone | [...] + + | 10/31/ | Emergency | [facility] | Katalina Brenal, | Other dysphagia | | 2018 | | [facility] | DO [address] | (Primary Dx) | | | | Emergency Department | [place] [address] | | | | | [address] | [phone] | | | | | [place] [address] | | | | | | [phone] | | | +--------+ + + + [...] | | | | | | right ([facility]) | | | | | | [...] [place] | | | | | | [address] | | | | | | | [...] + + + + + | Specific Mckean, UA | 1.006 | 1.002 - 1.030 [...] | BILIRUBIN | NEGATIVE | NEGATIVE | [facility] | + + + + + | GLUCOSE | >500 (A)Comment: Testing | NEGATIVE mg/dL | [facility] | | | performed at [facility] | | | | | [address];[place], [place] | | | | | [address] | | | + + + + + + + | Specimen | + + | Urine, Clean Catch | + + + + + + + | Performing | Address | City/State/Zipcode | Phone Number | | Organization | | | | + + + + + | [facility] | [address] | [place] [address] | | + + + + + Lipase (10/31/2017 6:33 PM) + + + + + | Component | Value | Ref Range | Performed At | + + + + + | LIPASE | 146Comment: Testing | 73 - 393 U/L | [facility] | | | performed at [facility];[address];[place] | | | | | [address] | | | + + + + + + + | Specimen | + + | Blood | + + + + + + + | Performing | Address | City/State/Zipcode | Phone Number | | Organization | | | | + + + + + | [facility] | [address] | [place] [address] | | + + + + + aPTT (10/31/2017 6:33 PM) + + + + + | Component | Value | Ref Range | Performed At | + + + + + | APTT | 30Comment: Testing | 23 - 32 seconds | [facility] | | | performed at [facility];[address];[place] | | | | | [address] | | | + + + + + + + | Specimen | + + | Blood | + + + + + + + | Performing | Address | City/State/Zipcode | Phone Number | | Organization | | | | + + + + + | [facility] | [address] | [place] [address] | | + + + + + Protime (10/31/2017 6:33 PM) + + + + + | Component | Value | Ref Range | Performed At | + + + + + | INR | 1.0Comment: REFERENCE | | [facility] | | | RANGE:0.9 - | [...] | | | | | performed at [facility];[address] | | | | | [address];[place] | | | | | [address] | | | + + + + + + + | Specimen | + + | Blood | + + + + + + + | Performing | Address | City/State/Zipcode | Phone Number | | Organization | | | | + + + + + | [facility] | [address] | [place] [address] | | + + + + + Magnesium (10/31/2017 6:33 PM) + + + + + | Component | Value | Ref Range | Performed At | + + + + + | MAGNESIUM | 2.5 (H)Comment: Testing | 1.7 - 2.4 mg/dL | [facility] | | | performed at [facility];[address] | | | | | [facility];[place], [place] | | | | | [address] | | | + + + + + + + | Specimen | + + | Blood | + + + + + + + | Performing | Address | City/State/Zipcode | Phone Number | | Organization | | | | + + + + + | [facility] | [address] | [place] [address] | | + + + + + Comprehensive metabolic panel (10/31/2017 6:33 PM) + + + + + | Component | Value | Ref Range | Performed At | + + + + + | SODIUM | 139 | 135 - 145 mmol/L | [facility] | + + + + + | POTASSIUM | 4.2 | 3.5 - 4.9 mmol/L | [facility] | + + + + + [...] 23 | 8 - 25 mg/dL | [facility] | + + + + + [...] 0.3 | 0.1 - 1.5 mg/dL | [facility] | + + + + + | ALK PHOS | 123 (H) | 35 - 115 U/L | [facility] | + + + + + | AST | 11 | 10 - 45 U/L | [facility] | + + + + + | ALT | 16 | 10 - 65 U/L | [facility] | + + + + + | EGFR | 54 (L)Comment: GFR <60: | >60 mL/min/1.73m2 | [facility] | | | CHRONIC KIDNEY DISEASE, [...] the | | | | | [facility] traceable | | | | | equation.Testing | | | | | performed at [facility] | | | | | [address];[place], [place] | | | | | [address] | | | + + + + + + + | Specimen | + + | Blood | + + + + + + + | Performing | Address | City/State/Zipcode | Phone Number | | Organization | | | | + + + + + | [facility] | [address] | [place] [address] | | + + + + + CBC with differential (10/31/2017 6:33 PM) + + + + + | Component | Value | Ref Range | Performed At | + + + + + | WBC | 7.10 | 3.80 - 11.00 K/uL | [facility] | + + + + + | RBC | 4.50 | 4.20 - 5.70 M/uL | [facility] | + + + + + | HGB | 10.5 (L) | 13.2 - 17.0 g/dL | [facility] | + + + + + | HCT | 34.1 (L) | 39.0 - 50.0 % | [facility] | + + + + + | MCV | 75.8 (L) | 80.0 - 100.0 fl | [facility] | + + + + + | MCH | 23.2 (L) | 27.0 - 34.0 pg | [facility] | + + + + + | MCHC | 30.6 (L) | 32.0 - 35.5 g/dL | [facility] | + + + + + | RDW SD | 48.1 | 37 - 53 fl | [facility] | + + + + + | PLT | 383 | 150 - 400 K/uL | [facility] | + + + + + | MPV | 9.0 | fl | [facility] | + + + + + [...] 0.05 | 0.00 - 0.10 K/uL | [facility] | + + + + + | MORPHOLOGY | 1+ | | [facility] | | | Comment: | | [...] Comment | SLIDE SCANNED, AGREES | | [facility] | | | WITH AUTOMATED | | | | | RESULTS.Comment: Testing | | | | | performed at [facility];[address] | | | | | [address];[place] | | | | | [address] | | | + + + + + + + | Specimen | + + | Blood | + + + + + + + | Performing | Address | City/State/Zipcode | Phone Number | | Organization | | | | + + + + + | [facility] | [address] | [place] [address] | | + + + + + [...]
--- OUTSIDE RECORDS SUMMARY | ~2017-11-22 | XMS | Encounter Summary ---
Demographics + + + | Address | [address] | | | [place] [address] | + + + | Home Phone | | + + + | Preferred Language | Unknown | + + + | Marital Status | | + + + | Evangelical Affiliation | LDS | + + + | Race | White | + + + | Ethnic Group | Not or | + + + Author + + + | Author | [facility] | + + + | Organization | [facility] | + + + | Address | Unknown | + + + | Phone | Unavailable | + + + Support + + + + + | Name | Relationship | Address | Phone | + + + + + | MILLY NGUYEN | ECON | [address] | | | | | [place], | | | | | [place] [address] | | + + + + + | Holly Burrell | ECON | Unknown | | + + + + + Care Team Providers + +------+ + | Care Drug Discovery Informatics Specialist Name | Role | Phone | + +------+ + | Jeremy Adrian MD | PCP | | + +------+ + Reason for Visit + + + | Reason | Comments | + + + | Lab Results | | + + + Encounter Details +--------+ + + + + | Date | Type | Department | Care Team | Description | +--------+ + + + + | 10/13/ | Telephone | [facility] at [facility] | Alison Garcia | Lab Results | | 2017 | | [address] | [address] | | | | | Mail Code: CH10U | [address] | | | | | [facility] | [place], [place] | | | | | and | [address] | | | | | Floor [place], [place] | [phone] | | | | | [address] | | | | | | [phone] | | | +--------+ + + + [...] + + | 12/20/ | Diagnostic | Child Protection Specialist | Nils Woody, | | | 2018 | Visit | | [facility] [address] | | | | | | [address] | | | | | | [place], [place] | | | | | | [address] | | | | | | | | +--------+ + + + + as of this encounter Procedures + +--------+ + + + | Procedure Name | Priori | Date/Time | Associated Diagnosis | Comments | | | ty | | | | + +--------+ + + + | BASIC METABOLIC SET | Routin | 10/07/2017 | | Results for this | | (NA, K, CL, TCO2, | e | 9:20 AM | | procedure are in the | | BUN, CR, GLU, CA) | | PDT | | results section. | + +--------+ + + + in this encounter Results BASIC METABOLIC SET (NA, K, CL, TCO2, BUN, CR, GLU, CA) (10/07/2017 9:20 AM) + +-------+ + + | Component | Value | Ref Range | Performed At | + +-------+ + + | GLUCOSE, PLASMA | 93 | 65 - 110 mg/dL | NON [facility] | | (LAB) | | | | + +-------+ + + | CREATININE PLASMA | 1.27 | mg/dL | NON [facility] | | (LAB) | | | | + +-------+ + + | SODIUM, PLASMA (LAB) | 137 | mmol/L | NON [facility] | + +-------+ + + | POTASSIUM, PLASMA | 5.7 | mmol/L | NON [facility] | | (LAB) | | | | + +-------+ + + | CHLORIDE, PLASMA | 101 | mmol/L | NON [facility] | | (LAB) | | | | + +-------+ + + | TOTAL CO2, PLASMA | 22 | mmol/L | NON [facility] | | (LAB) | | | | + +-------+ + + | CALCIUM, PLASMA | 10.3 | mg/dL | NON [facility] | | (LAB) | | | | + +-------+ + + | BUN/CREATININE RATIO | 16.5 | | NON [facility] | + +-------+ + + + + | Specimen | + + | Blood - Blood | + + + +---------+ + + | Performing | Address | City/State/Zipcode | Phone Number | | Organization | | | | + +---------+ + + | NON [facility] | | | | + +---------+ + + in this encounter Visit Diagnoses Not on filein this encounter"
--- OUTSIDE RECORDS SUMMARY | ~2017-11-22 | XMS | Clinical Summary ---
Demographics + + + | Address | [address] | | | [place] [address] | + + + | Home Phone | | + + + | Preferred Language | Unknown | + + + | Marital Status | | + + + | Tenriism Affiliation | LDS | + + + | Race | White | + + + | Ethnic Group | Not or | + + + Author + + + | Author | [facility] | + + + | Organization | [facility] | + + + | Address | Unknown | + + + | Phone | Unavailable | + + + Support + + + + + | Name | Relationship | Address | Phone | + + + + + | MILLY NGUYEN | ECON | [address] | | | | | [place], | | | | | [place] [address] | | + + + + + | Holly Burrell | ECON | Unknown | | + + + + + Care Team Providers + +------+ + | Care General Production Manager Name | Role | Phone | + +------+ + | Jeremy Adrian MD | PP | | + +------+ + Source Comments JO-ANN is fully live on both EpicCare Ambulatory and EpicCare InPatient.[facility] Allergies + + + + + + | Active Allergy | Reactions | Severity | Noted | Comments | | | | | Date | | + + + + + + | Phenazopyridine | Nausea and Vomiting | Medium | 09/02/19 | | | | | | 18 | | + + + + + + Current Medications + + + +---------+------+------+-------+ | Prescription | Sig. | Disp. | Refills | Star | End | Statu | | | | | | t | Date | s | | | | | | Date | | | + + + +---------+------+------+-------+ | metFORMIN 500 mg | Take 1500 mg by | | | | | Activ | | oral tablet | mouth every morning | | | | | e | | | and 1000 mg by mouth | | | | | | | | every evening | | | | | | + + + +---------+------+------+-------+ | sitaGLIPtin | Take 100 mg by mouth | | | | | Activ | | (JANUVIA) 100 mg | once daily. | | | | | e | | oral tablet | | | | | | | + + + +---------+------+------+-------+ | pantoprazole 40 mg | Take 40 mg by mouth | | | | | Activ | | oral tablet,delayed | once daily as | | | | | e | | release (DR/EC) | needed. | | | | | | + + + +---------+------+------+-------+ | simvastatin 40 mg | Take 40 mg by mouth | | | | | Activ | | oral tablet | once daily in the | | | | | e | | | evening. | | | | | | + + + +---------+------+------+-------+ | INVOKANA 100 mg | Take 1 tablet by | | 3 | 04/2 | | Activ | | oral tablet | mouth once daily. | | | 6/20 | | e | | | | | | 16 | | | + + + +---------+------+------+-------+ | | Take 1 tablet by | | 6 | 04/0 | | Activ | | valsartan-hydrochlor | mouth once daily. | | | 10/14 | | e | | othiazide 160-12.5 | | | | 16 | | | | mg oral tablet | | | | | | | + + + +---------+------+------+-------+ | LANTUS SOLOSTAR | Inject 10 Units | | 6 | 04/2 | | Activ | | 100 unit/mL (3 mL) | under the skin | | | 09/14 | | e | | subcutaneous insulin | (SUBC) once daily at | | | 16 | | | | pen | bedtime. | | | | | | + + + +---------+------+------+-------+ | aspirin chewable | Chew and swallow 1 | 30 | 3 | 06/2 | | Activ | | 81 mg oral | tablet once daily. | tablet | | 07/15 | | e | | tablet,chewable | | | | 18 | | | + + + +---------+------+------+-------+ | senna-docusate | Take 1 tablet by | 40 | 0 | 06/2 | | Activ | | (SENNA-S) 8.6-50 mg | mouth two times | tablet | | 3/20 | | e | | oral tablet | daily. | | | 18 | | | + + + +---------+------+------+-------+ | oxyCODONE | Take 2.5-5 mL by | 150 mL | 0 | 06/2 | | Activ | | (immediate release) | mouth every six | | | 3/20 | | e | | 5 mg/5 mL oral | hours as needed. | | | 18 | | | | solution | | | | | | | + + + +---------+------+------+-------+ | HYDROmorphone | Take 2-4 mL by mouth | 50 mL | 0 | 06/2 | | Activ | | (DILAUDID) 1 mg/mL | every four hours as | | | 3/20 | | e | | oral liquid | needed. | | | 18 | | | + + + +---------+------+------+-------+ Active Problems + + + | Problem | Noted Date | + + + | Status post nephrectomy | 09/13/2017 | + + + + + | Last Assessment & Plan: Now s/p open right radical | | nephrectomy and caval thrombectomy excision/grafting of vena | | cava, and retroperitoneal lymph node dissection on 09/13. On .05 | | NE when IVC clamped, but able to be weaned during the case. Given | | 20 mg methadone prior to the case. No epidural was placed out of | | concern for the need of heparin during the case (not required). | | Consented for post-op epidural. Vena cava graft done by vascular. | | Has CARTOON DESIGNER. 6.3 L crystalloid given during the case-no blood | | products given (1200 mL EBL). Did well overnight HD and with pain | | control.-Continue motta per urology -HM CARTOON DESIGNER-CLD until EMPLOYEE RELATIONS DIRECTOR | | eval/uro approval-Closely monitor hemodynamics-[facility] status | + + + + + | Dysphagia | 09/13/2017 | + + + + + | Last Assessment & Plan: Has had issues with swallowing and | | dysphagia for quite some time. Crushes all meds and takes them | | with applesauce. EMPLOYEE RELATIONS DIRECTOR consult and recommend barium | | swallow.-CLD-Barium swallow today-EMPLOYEE RELATIONS DIRECTOR following | + + + + + | Acute blood loss anemia | 09/13/2017 | + + + + + | Last Assessment & Plan: Hb of 9.6 preoperatively thought to | | be 2/2 oncologic process. Hct of 22.6 in [place]. Stable this AM-Daily | | CBC | + + + + + | Type 2 diabetes mellitus with complication, with long-term | 09/01/2017 | | current use of insulin (HCC) | | + + + + + | Last Assessment & Plan: On lantus 10-20 units at bedtime | | along with metformin, Januvia, and Invokana. Minimal insulin | | requirements while here, although only on CLD.-SSI for now, may | | need to add NPH | + + + + + | Essential hypertension | 09/01/2017 | + + + + + | Last Assessment & Plan: Well controlled with valsartan TARGET MAN. | | -Hold in post-operative period | + + + + + | Gastroesophageal reflux disease | 09/01/2017 | + + + + + | Last Assessment & Plan: On pantoprazole as outpatient. | | -Continue omeprazole (formulary) | + + + + + | Right renal mass | 08/26/2017 | + + + | Cochlear implant in place | 09/02/2015 | + + + + + | Last Assessment & Plan: Working well. Able to hear well | | except over the phone. | + + + + + | Nonobliterative otosclerosis involving both oval windows | 10/23/2014 | + + + | Otosclerosis of both ears involving round window | 10/23/2014 | + + + | Mixed hearing loss, bilateral | 10/23/2014 | + + + | Sensorineural hearing loss of both ears | 09/22/2014 | + + + | Vestibular disequilibrium | 09/22/2014 | + + + Encounters +--------+ + + + + | Date | Type | Specialty | Care Team | Description | +--------+ + + + + | 11/18/ | Telephone | | Cristy Rubin MD | Insurance | | 2017 | | | | Authorization | | | | | | (Disability claim) | +--------+ + + + + | 11/07/ | [employer] | | Cristy Rubin MD | Dysphagia, | | 2017 | | | | pharyngoesophageal | | | | | | phase (Primary Dx) | +--------+ + + + + | 10/31/ | Telephone | | Nabila Cavanaugh | Social work | | 2017 | | | | consultation | +--------+ + + + + | 10/21/ | Diagnostic | | Rm, | | | 2017 | Visit | | AARON Ramires | | +--------+ + + + + | 10/21/ | Office | | Farhat Young MD | Renal cell carcinoma | | 2017 | Visit | | | of right kidney | | | | | | (HCC) (Primary Dx) | +--------+ + + + + 10/21/ | Hospital | | Farhat Young MD | | | 2018 | Encounter | | | | +--------+ + + + 10/13/ | Telephone | | Alison Garcia | Lab Results | 2017 | | | E[facility] | | +--------+ + + + + | 10/10/ | Abstract | | Cristy Rubin MD | | | 2017 | | | | | +--------+ + + + + | 10/07/ | Abstract | | Cristy Rubin MD | | | 2017 | | | | | +--------+ + + + + | 10/06/ | Office | | Alison Garcia | Renal cell carcinoma | | 2017 | Visit | | EMPERATRIZ Cash | of right kidney | | | | | | (HCC) (Primary Dx) | +--------+ + + + + | 10/06/ | Lab | | | Right renal mass | | 2017 | | | | | +--------+ + + + + | 10/06/ | Telephone | | Alison Garcia | Lab Order | | 2017 | | | [facility]AT[facility]Z [facility] | | +--------+ + + + + | 09/19/ | Telephone | | Alison Garcia | | | 2017 | | | [facility] | | +--------+ + + + + | 09/17/ | [employer] | | Eder Gann, | 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 | | | [place] | | | [facility] and | | | [facility] | | | [facility] | | | npatient | | | Discharge | | | SummaryKenn | | | eth | | | [place], | | | MDAttending | | | Physician: | | | Cristy Fortune | | | MD Scottie | | | Author: | | | Mario | | | Geo, | | | MDPatient: | | | Eliceo Serna | | | GibbonsMRN: | | | | | | [id number] | | | ission | | | Date: | | | 09/13/2017Di | | | scharge | | | Date: | | | 09/17/2017At | | | tending | | | Physician: | | | Cristy Fortune | | | Scottie, | | | SAGErimary | | | Care | | | Physician: | | | Jeremy | | | Kaylah, | | | MDService: | | | UrologyDisc | | | harge | | | Patient To: | | | Home | | | | | | | | | | | | | | | | | | | | | | | | | | | --------Corin | | | gnoses | | | Principal | | | Final | | | Diagnosis: | | | 1. Right | | | renal mass, | | | IVC | | | thrombusAdd | | | itional | | | Diagnoses:P | | | rocedures | | | 1. Open | | | right | | | radical | | | nephrectomy | | | and caval | | | thrombectom | | | y 2. | | | Excision of | | | vena | | | cava3. | | | Grafting of | | | vena cava | | | (by | | | Reid)4. | | | Retroperito | | | zackary lymph | | | node | | | dissection | | | (paracaval | | | dissection) | | | | | | | | | | | | | | | | | | | | | | | | | | | --------Sig | | | nificant | | | Findings, | | | Treatment, | | | and | | | Complicatio | | | ns, and | | | Brief | | | Hospital | | | Course: | | | Brief | | | Hospital | | | Course Eliceo | | | Kareem | | | Nguyen is | | | a 71 y.o. | | | male with | | | above | | | history who | | | underwent | | | the above | | | procedure | | | on | | | 09/13/2017. | | | He | | | tolerated | | | the | | | procedure | | | well and | | | recovered | | | uneventfull | | | y on the | | | guzmán | | | post-operat | | | ively. he | | | was | | | discharged | | | home on | | | post-op day | | | 4 at which | | | time he | | | was | | | tolerating | | | a regular | | | diet, had | | | good pain | | | control on | | | oral | | | medications | | | , and was | | | ambulating | | | without | | | difficulty. | | | | | | | | | | | | | | | | | | | | | | | | | | | | | | -------- | | | Diet | | | Regular | | | -1:1 | | | supervision | | | -upright | | | 90 degrees | | | for all | | | oral | | | intake-smal | | | l | | | bites/sips- | | | Stop oral | | | intake for | | | concerns of | | | aspiration | | | (increased | | | cough, | | | decreased | | | resp | | | status, | | | increased | | | temp) ---- | | | | | | | | | | | | | | | | | | | | | | | | | | | ---- | | | Activity | | | Activity | | | restriction | | | s: - No | | | lifting | | | more than | | | 10 pounds | | | for 6 | | | weeks. This | | | will allow | | | your wound | | | to heal as | | | well as | | | possible.- | | | Avoid | | | bearing | | | down or | | | straining | | | with bowel | | | movements.- | | | Narcotics | | | can cause | | | constipatio | | | n, so you | | | may take | | | over-the-co | | | unter stool | | | softeners | | | (Senokot-S, | | | Miralax, | | | Colace) | | | following | | | the | | | instruction | | | s on the | | | box. Stop | | | taking | | | these pills | | | if you are | | | | | | experiencin | | | g | | | diarrhea.- | | | No driving | | | while on | | | narcotics | | | or with a | | | urinary | | | catheter in | | | | | | place.----- | | | | | | | | | | | | | | | | | | | | | | | | | | | ---Wound | | | Care | | | General | | | Wound Care | | | Keep your | | | incision | | | clean and | | | dry. Do not | | | submerge | | | in tub or | | | pool, but | | | you can | | | shower 3 | | | days after | | | surgery. Do | | | not soak | | | in bath or | | | pool for 1 | | | month. | | | | | | | [...] | | | | | | | W | | | hen to | | | Call: JO-ANN | | | equipment operator warehouse | | | [phone] | | | [phone] | | | after hours | | | and ask | | | for the | | | Surgery | | | Physician | | | Labor Service Representative, | | | Nurse or | | | Surgery | | | Resident on | | | call if | | | you have | | | any of the | | | followin | | | . | | | Difficulty | | | breathing | | | or unusual | | | shortness | | | of breath2. | | | Excessive | | | bleeding, | | | drainage, | | | redness | | | and/or | | | swelling at | | | the | | | operative | | | site3. | | | Fevers | | | (>101.5), | | | chills, | | | increased | | | pain that | | | is not | | | relieved by | | | pain | | | medications | | | 4. | | | Persistent | | | nausea or | | | vomiting--- | | | | | | | | | | | | | | | | | | | | | | | | | | | -----Condit | | | ion on | | | Discharge | | | Stable | | | Urology | | | Follow Up | | | Please | | | follow up | | | with Cristy | | | Devika Rubin, | | | in the | | | Urology | | | Clinic. | | | Future | | | Appointment | | | s | | | Provider | | | Department | | | Dept Phone | | | Center | | | 10/06/2017 | | | 9:30 AM | | | Alison Cash | | | Jose | | | Urology at | | | [facility] | | | [phone] | | | 0 Urology | | | 12/20/2017 | | | 8:30 AM | | | Keyla Wray | | | Bong; | | | [facility] | | | 4 | | | Otolaryngol | | | ogy | | | Audiology | | | Services at | | | [facility] | | | [phone] | | | 1 | | | Otolaryngol | | | o Our | | | schedulers | | | will | | | contact you | | | to make an | | | | | | appointment | | | . Your | | | appointment | | | will be on | | | the 10th | | | floor of | | | the Center | | | for Health | | | and | | | Healing. If | | | you do not | | | hear from | | | our | | | schedulers | | | in several | | | days call | | | the clinic | | | at [phone] | | | [phone].Pl | | | ease call | | | the Urology | | | Clinic at | | | [phone] | | | [phone] | | | with any | | | questions | | | or | | | concerns, | | | or if you | | | experience | | | symptoms of | | | fever; | | | chills; | | | severe | | | nausea; | | | vomiting; | | | pain that | | | does not go | | | away with | | | usual | | | medication; | | | drainage | | | or bleeding | | | from the | | | incision | | | site; | | | sudden | | | numbness, | | | weakness, | | | or | | | difficulty | | | speaking; | | | or any | | | other | | | concerns. | | | If after | | | hours, call | | | the | | | Urology | | | Resident on | | | call at | | | [phone] | | | [phone].Fu | | | ture | | | Appointment | | | s | | | Provider | | | Department | | | Dept Phone | | | Center | | | 10/06/2017 | | | 9:30 AM | | | Alison M | | | [facility] | | | Urology at | | | [facility] | | | [phone] | | | 0 Urology | | | 12/20/2017 | | | 8:30 AM | | | Keyla Wray | | | [place]; | | | [facility] | | | 4 | | | Otolaryngol | | | ogy | | | Audiology | | | Services at | | | [facility] | | | [phone] | | | 1 | | | Otolaryngol | | | o | | | | | | | | | | | | | | | | | | | | | | | | | | | --------Con | | | dition On | | | Discharge: | | | GoodVital | | | Signs at | | | discharge: | | | Ht 1.702 m | | | (5' 7.01"), | | | Wt 74.7 kg | | | (164 lb | | | 10.9 oz), | | | BP 148/73, | | | Pulse 94, | | | Temperature | | | 37.2 C | | | (99 F), | | | RR 18, SpO2 | | | 96%, BMI | | | 25.79 | | | kg/(m^2). | | | General: | | | healthy, | | | well-nouris | | | hed, | | | comfortable | | | HEENT: | | | EOMI, | | | Conjuctivae | | | | | | normalRespi | | | ratory: | | | unlabored | | | breathingCV | | | : Regular | | | rateAbdomen | | | : flat, | | | soft, | | | appropriate | | | ly tender. | | | Incision | | | c/d/IExtrem | | | ities:no | | | deformities | | | , no skin | | | discolorati | | | on, warm | | | bilaterally | | | Mental | | | status: | | | awake and | | | alertGU: | | | Motta | | | removed---- | | | | | | | | | | | | | | | | | | | | | | | | | | | ----Medicat | | | ion | | | Reconciliat | | | ion: | | | Medication | | | List START | | | taking | | | these | | | medications | | | aspirin | | | chewable 81 | | | mg | | | ChewChew | | | and swallow | | | 1 tablet | | | once daily. | | | oxyCODONE | | | (immediate | | | release) 5 | | | mg | | | TabCommonly | | | known as: | | | | | | ROXICODONET | | | hamilton 1 | | | tablet by | | | mouth every | | | four hours | | | as needed | | | for | | | moderate | | | pain. | | | senna-docus | | | ate 8.6-50 | | | mg | | | TabCommonly | | | known as: | | | | | | SENNA-STake | | | 1 tablet | | | by mouth | | | two times | | | daily. | | | CONTINUE | | | taking | | | these | | | medications | | | INVOKANA | | | 100 mg | | | TabGeneric | | | drug: | | | canaglifloz | | | inTake 1 | | | tablet by | | | mouth once | | | daily. | | | JANUVIA 100 | | | mg | | | TabGeneric | | | drug: | | | sitaGLIPtin | | | Take 100 mg | | | by mouth | | | once daily. | | | LANTUS | | | SOLOSTAR | | | U-100 | | | INSULIN 100 | | | unit/mL (3 | | | mL) | | | InpnGeneric | | | drug: | | | insulin | | | glargineInj | | | ect 10 | | | Units under | | | the skin | | | (SUBC) once | | | daily at | | | bedtime. | | | metFORMIN | | | 500 mg | | | TabCommonly | | | known as: | | | | | | GLUCOPHAGET | | | hamilton 1500 mg | | | by mouth | | | every | | | morning and | | | 1000 mg by | | | mouth | | | every | | | evening | | | pantoprazol | | | e 40 mg | | | TbecCommonl | | | y known as: | | | | | | PROTONIXTak | | | e 40 mg by | | | mouth once | | | daily as | | | needed. | | | simvastatin | | | 40 mg | | | TabCommonly | | | known as: | | | ZOCORTake | | | 40 mg by | | | mouth once | | | daily in | | | the | | | evening. | | | valsartan-h | | | ydrochlorot | | | hiazide | | | 160-12.5 mg | | | | | | TabCommonly | | | known as: | | | DIOVAN | | | HCTTake 1 | | | tablet by | | | mouth once | | | daily. | | | STOP taking | | | these | | | medications | | | | | | HYDROcodone | | | -acetaminop | | | hen 5-325 | | | mg | | | TabCommonly | | | known as: | | | NORCO | | | | | | | | | | | | | | | | | | | | | | | | | | | --------[facility] | | | nk you for | | | the | | | opportunity | | | to take | | | care of Eliceo | | | Kareem | | | Patrick | | | during this | | | inpatient | | | stay, it | | | has been | | | our | | | pleasure. | | | Please call | | | with any | | | questions.K | | | enneth | | | [place] | | | MDUrology | | | PGY-1Pg | | | [phone] | | | [phone] | | | [address] | | | [address] | | | [id number] | | | [place], | | | [place] | | | [phone] | | | [phone] | +---+ + +--------+ +---+ + + | 09/13/ | Document-Sc | | Other, Faculty | | | 2018 | anned | | | | +--------+ +---+ + + | 09/13/ | Telephone | | Nabila Cavanaugh P | Social work | | 2018 | | | | consultation | +--------+ +---+ + + | 09/13/ | Procedure | | | | | 2018 | Pass | | | | +--------+ +---+ + + | 09/13/ | Surgery | | Cristy Rubin MD | RIGHT OPEN RADICAL | | 2017 | | | | NEPHRECTOMY CAVAL | | | | | | THROMBECTOMY, | | | | | | RETROPERITONEAL | | | | | | LYMPH NODE | | | | | | DISSECTION, | +--------+ +---+ + + | 09/09/ | Telephone | | Cristy Rubin MD | Pre-op evaluation | | 2017 | | | | | +--------+ +---+ + + | 09/07/ | Abstract | | Cristy Rubin MD | | | 2017 | | | | | +--------+ +---+ + + | 09/02/ | Telephone | | Cristy Rubin MD | | | 2017 | | | | | +--------+ +---+ + + | 09/02/ | Telephone | | Alison Garcia | Care Management | | 2018 | | | EMPERATRIZ Cash | (Record Request) | +--------+ +---+ + + | 09/02/ | Telephone | | Cristy Rubin MD | Postoperative Check | | 2017 | | | | (Labs) | +--------+ +---+ + + | 09/01/ | Office | | Marj Mcdaniel, Sydnie Preoperative | | 2017 | Visit | | | examination (Primary | | | | | | Dx); Right renal | | | | | | mass; Essential | | | | | | hypertension; Type 2 | | | | | | diabetes mellitus | | | | | | with complication, | | | | | | with long-term | | | | | | current use of | | | | | | insulin ([facility]); | | | | | | Gastroesophageal | | | | | | reflux disease, | | | | | | esophagitis presence | | | | | | not specified; | | | | | | Cochlear implant in | | | | | | place | +--------+ +---+ + + | 09/01/ | Office | | Rn Uro | Renal cell carcinoma | | 2017 | Visit | | | of right kidney | | | | | | (HCC) (Primary Dx) | +--------+ +---+ + + | 09/01/ | Office | | Cristy Rubin MD | Renal cell carcinoma | | 2018 | Visit | | | of right kidney | | | | | | (HCC) (Primary Dx) | +--------+ +---+ + + | 09/01/ | Anesthesia | | Marj Mcdaniel, | | | 2017 | Event | | | | +--------+ +---+ + + | 08/31/ | Hospital | | Cristy Rubin MD | | | 2017 | Encounter | | | | +--------+ +---+ + + | 08/31/ | Hospital | | Alison Garcia | | | 2017 | Encounter | | [facility] | | +--------+ +---+ + + | 08/26/ | Procedure | | | | 2017 | Pass | | | | +--------+ +---+ + + | 08/25/ | Telephone | | Cristy Rubin MD | Care Management | | 2017 | | | | | +--------+ +---+ + + | 08/25/ | [employer] | | Alison Garcia | Renal mass (Primary | 2017 | | | EMPERATRIZ Cash | Dx); Bladder mass | +--------+ +---+ + + | 08/25/ | Abstract | | Cristy Rubin MD | | | 2017 | | | | | +--------+ +---+ + + 08/24/ | Orders Only | | Cristy Rubin MD | Renal mass (Primary | 2017 | | | | Dx) | +--------+ +---+ + + | 08/23/ | [employer] | | Alison Garcia | Renal mass, right | | 2017 | | | MCKAYLA Cash-Aleyda | (Primary Dx) | +--------+ +---+ + + | 08/23/ | Abstract | | Uro, Gen | | | 2017 | | | | | +--------+ +---+ + + from Last 3 Months Family History + + +------+ + | Medical History | Relation | Name | Comments | + + +------+ + | Diabetes | Brother | | | + + +------+ + | Diabetes | Father | | | + + +------+ + | Hypertension | Father | | | + + +------+ + | Cancer | Mother | | liver, cause of | + + +------+ + + +------+ + + | Relation | Name | Status | Comments | + +------+ + + | Brother | | | | + +------+ + + | Father | | | | + +------+ + + | Mother | | | | + +------+ + + Social History + + + [...] on file | | + + + Last Filed Vital Signs + + + + | Vital Sign | Reading | Time Taken | + + + + | Blood Pressure | 147/82 | 10/21/2017 1:30 PM PDT | + + + + | Pulse | 75 | 10/21/2017 1:30 PM PDT | + + + + | Temperature | 36.9 C (98.4 F) | 09/17/2017 8:15 AM PDT | + + + + | Respiratory Rate | 16 | 10/06/2017 9:14 AM PDT | + + + + | Oxygen Saturation | 100% | 10/21/2017 1:30 PM PDT | + + + + | Inhaled Oxygen | - | - | | Concentration | | | + + + + | Weight | 97.8 kg (215 lb 8 | 10/21/2017 1:30 PM PDT | | | oz) | | + + + + | Height | 168.9 cm (5' 6.5") | 10/06/2017 9:14 AM PDT | + + + + | Body Mass Index | 34.26 | 10/21/2017 1:30 PM PDT | + + + + Plan of Treatment +--------+ + + + + | Date | Type | Specialty | Care Team | Description | +--------+ + + + + | 12/20/ | Diagnostic | | Nils Woody, | | | 2017 | Visit | | Keyla [facility] [address] | | | | | [address] | | | | | | [address] [place], [place] | | | | | | [address] | | | | | | | | +--------+ + + + + + + + + + | Health Maintenance | Due Date | Last Done | Comments | + + + + + | INFLUENZA VACCINE | | 03/03/2017, 02/29/2016, | | | (FLU SHOT) | 8 | 02/13/2015, Additional history | | | | | exists | | + + + + + Implants + +------+--------+ +--------+--------+--------+ | Implanted | Type | Area | Manufacture | Device | Expira | Model | | | | | r | | tion | / | | | | | | Identi | Date | Serial | | | | | | fier | | / Lot | + +------+--------+ +--------+--------+--------+ | Cochlear ImplantImplanted: | | | | | 06/16/ | [id number] | | Qty: 1 on 08/21/2015 by | | | | | 2017 | /[id number] | | Papi Albarran MD | | | | | | [id number] | | | | | | | | 37 / | + +------+--------+ +--------+--------+--------+ | Nucleus Cochlear | | Right: | COCHLEAR | | 06/24/ | [id number] | | ImplantImplanted: Qty: 1 on | | Ear | GLENN | | 2018 | /[id number] | | 08/30/2016 by Papi Albarran | | | | | | [id number] | | EMD | | | | | | 50 / | + +------+--------+ +--------+--------+--------+ | Graft Vascular 20cm 20mm | | Right: | [facility] | | 07/20/ | [id number] | | [employer] [facility] [place] [facility] | | | [employer] | | 2022 | 020 | | 20cm Sterile - | | Abdome | | | | /[id number] | | [id number]: Qty: 1 on | | n | | | | 517 / | | 09/13/2017 by Cristy Rubin, | | | | | | | | MD | | | | | | | + +------+--------+ +--------+--------+--------+ Procedures + +--------+ + + + | Procedure Name | Priori | Date/Time | Associated Diagnosis | Comments | | | ty | | | | + +--------+ + + + | [place] EVAL,ORAL & | Routin | 10/21/2017 | [...] VEIN | | PDT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) | results section. | + +--------+ + [...] | BASIC METABOLIC SET | Routin | 10/06/2017 | | Results for this | | (NA, K, CL, TCO2, | e | 12:00 AM | | procedure are in the | | BUN, CR, GLU, CA) | | PDT | | results section. | + +--------+ + + + | CAPILLARY BLOOD | Routin | 09/17/2017 | Right renal mass | Results for this | | GLUCOSE (NO CHG), | e | 8:22 AM | | procedure are in the | | POC | | PDT | | results section. | + +--------+ + + + | CBC (HEMOGRAM) ONLY | Urgent | 09/17/2017 | | Results for this | | | | 4:50 AM | | procedure are in the | | | | PDT | | results section. | + +--------+ + + + | PHOSPHORUS, PLASMA | Urgent | 09/17/2017 | | Results for this | | | | 4:50 AM | | procedure are in the | | | | PDT | | results section. | + +--------+ + + + | MAGNESIUM, PLASMA | Urgent | 09/17/2017 | | Results for this | | | | 4:50 AM | | procedure are in the | | | | PDT | | results section. | + +--------+ + + + | CBC ONLY | Urgent | 09/17/2017 | | Results for this | | | | 4:50 AM | | procedure are in the | | | | PDT | | results section. | + +--------+ + + + | BASIC METABOLIC SET | Urgent | 09/17/2017 | | Results for this | | (NA, K, CL, TCO2, | | 4:50 AM | | procedure are in the | | BUN, CR, GLU, CA) | | PDT | | results section. | + +--------+ + + + | CAPILLARY BLOOD | Routin | 09/16/2017 | Right renal mass | Results for this | | GLUCOSE (NO CHG), | e | 10:37 PM | | procedure are in the | | POC | | PDT | | results section. | + +--------+ + + + | CAPILLARY BLOOD | Routin | 09/16/2017 | Right renal mass | Results for this | | GLUCOSE (NO CHG), | e | 4:43 PM | | procedure are in the | | POC | | PDT | | results section. | + +--------+ + + + | CAPILLARY BLOOD | Routin | 09/16/2017 | Right renal mass | Results for this | | GLUCOSE (NO CHG), | e | 1:08 PM | | procedure are in the | | POC | | PDT | | results section. | + +--------+ + + + | VASC LAB ABDOMINAL | Routin | 09/16/2017 | | Results for this | | DUPLEX LTD ARTERY | e | 12:02 PM | | procedure are in the | | VEIN | | PDT | | results section. | + +--------+ + + + | CAPILLARY BLOOD | Routin | 09/16/2017 | Right renal mass | Results for this | | GLUCOSE (NO CHG), | e | 8:27 AM | | procedure are in the | | POC | | PDT | | results section. | + +--------+ + + + | CBC (HEMOGRAM) ONLY | Urgent | 09/16/2017 | | Results for this | | | | 4:16 AM | | procedure are in the | | | | PDT | | results section. | + +--------+ + + + | PHOSPHORUS, PLASMA | Urgent | 09/16/2017 | | Results for this | | | | 4:16 AM | | procedure are in the | | | | PDT | | results section. | + +--------+ + + + | MAGNESIUM, PLASMA | Urgent | 09/16/2017 | | Results for this | | | | 4:16 AM | | procedure are in the | | | | PDT | | results section. | + +--------+ + + + | CBC ONLY | Urgent | 09/16/2017 | | Results for this | | | | 4:16 AM | | procedure are in the | | | | PDT | | results section. | + +--------+ + + + | BASIC METABOLIC SET | Urgent | 09/16/2017 | | Results for this | | (NA, K, CL, TCO2, | | 4:16 AM | | procedure are in the | | BUN, CR, GLU, CA) | | PDT | | results section. | + +--------+ + + + | CAPILLARY BLOOD | Routin | 09/15/2017 | Right renal mass | Results for this | | GLUCOSE (NO CHG), | e | 9:25 PM | | procedure are in the | | POC | | PDT | | results section. | + +--------+ + + + | CAPILLARY BLOOD | Routin | 09/15/2017 | Right renal mass | Results for this | | GLUCOSE (NO CHG), | e | 5:53 PM | | procedure are in the | | POC | | PDT | | results section. | + +--------+ + + + | CAPILLARY BLOOD | Routin | 09/15/2017 | Right renal mass | Results for this | | GLUCOSE (NO CHG), | e | 1:05 PM | | procedure are in the | | POC | | PDT | | results section. | + +--------+ + + + | CAPILLARY BLOOD | Routin | 09/15/2017 | Right renal mass | Results for this | | GLUCOSE (NO CHG), | e | 9:30 AM | | procedure are in the | | POC | | PDT | | results section. | + +--------+ + + + | CBC (HEMOGRAM) ONLY | Urgent | 09/15/2017 | | Results for this | | | | 5:25 AM | | procedure are in the | | | | PDT | | results section. | + +--------+ + + + | PHOSPHORUS, PLASMA | Urgent | 09/15/2017 | | Results for this | | | | 5:25 AM | | procedure are in the | | | | PDT | | results section. | + +--------+ + + + | MAGNESIUM, PLASMA | Urgent | 09/15/2017 | | Results for this | | | | 5:25 AM | | procedure are in the | | | | PDT | | results section. | + +--------+ + + + | CBC ONLY | Urgent | 09/15/2017 | | Results for this | | | | 5:25 AM | | procedure are in the | | | | PDT | | results section. | + +--------+ + + + | BASIC METABOLIC SET | Urgent | 09/15/2017 | | Results for this | | (NA, K, CL, TCO2, | | 5:25 AM | | procedure are in the | | BUN, CR, GLU, CA) | | PDT | | results section. | + +--------+ + + + | CAPILLARY BLOOD | Routin | 09/15/2017 | Right renal mass | Results for this | | GLUCOSE (NO CHG), | e | 12:05 AM | | procedure are in the | | POC | | PDT | | results section. | + +--------+ + + + | CAPILLARY BLOOD | Routin | 09/14/2017 | Right renal mass | Results for this | | GLUCOSE (NO CHG), | e | 5:43 PM | | procedure are in the | | POC | | PDT | | results section. | + +--------+ + + + | MODIFIED BARIUM | Routin | 09/14/2017 | | Results for this | | SWALLOWING | e | 3:00 PM | | procedure are in the | | | | PDT | | results section. | + +--------+ + + + | X-RAY ESOPHAGRAM | Routin | 09/14/2017 | | Results for this | | | e | 3:00 PM | | procedure are in the | | | | PDT | | results section. | + +--------+ + + + | PROCEDURE NOTE | Routin | 09/14/2017 | | Results for this | | | e | 1:13 PM | | procedure are in the | | | | PDT | | results section. | + +--------+ + + + | CAPILLARY BLOOD | Routin | 09/14/2017 | Right renal mass | Results for this | | GLUCOSE (NO CHG), | e | 7:15 AM | | procedure are in the | | POC | | PDT | | results section. | + +--------+ + + + | CBC (HEMOGRAM) ONLY | Urgent | 09/14/2017 | | Results for this | | | | 12:02 AM | | procedure are in the | | | | PDT | | results section. | + +--------+ + + + | PHOSPHORUS, PLASMA | Urgent | 09/14/2017 | | Results for this | | | | 12:02 AM | | procedure are in the | | | | PDT | | results section. | + +--------+ + + + | MAGNESIUM, PLASMA | Urgent | 09/14/2017 | | Results for this | | | | 12:02 AM | | procedure are in the | | | | PDT | | results section. | + +--------+ + + + | CBC ONLY | Urgent | 09/14/2017 | | Results for this | | | | 12:02 AM | | procedure are in the | | | | PDT | | results section. | + +--------+ + + + | BASIC METABOLIC SET | Urgent | 09/14/2017 | | Results for this | | (NA, K, CL, TCO2, | | 12:02 AM | | procedure are in the | | BUN, CR, GLU, CA) | | PDT | | results section. | + +--------+ + + + | CAPILLARY BLOOD | Routin | 09/13/2017 | Right renal mass | Results for this | | GLUCOSE (NO CHG), | e | 10:07 PM | | procedure are in the | | POC | | PDT | | results section. | + +--------+ + + + | PROCEDURE NOTE | Routin | 09/13/2017 | | Results for this | | | e | 6:59 PM | | procedure are in the | | | | PDT | | results section. | + +--------+ + + + | CAPILLARY BLOOD | Routin | 09/13/2017 | Right renal mass | Results for this | | GLUCOSE (NO CHG), | e | 6:33 PM | | procedure are in the | | POC | | PDT | | results section. | + +--------+ + + + | CBC (HEMOGRAM) ONLY | Urgent | 09/13/2017 | | Results for this | | | | 4:25 PM | | procedure are in the | | | | PDT | | results section. | + +--------+ + + + | RENAL FUNCTION SET | Urgent | 09/13/2017 | | Results for this | | (NA,K,CL,CO2,BUN,CRE | | 4:25 PM | | procedure are in the | | AT,GLUC,CA,PHOS,ALB | | PDT | | results section. | | ) | | | | | + +--------+ + + + | CBC ONLY | Urgent | 09/13/2017 | | Results for this | | | | 4:25 PM | | procedure are in the | | | | PDT | | results section. | + +--------+ + + + | X-RAY PORTABLE CHEST | Urgent | 09/13/2017 | | Results for this | | 1 VIEW | | 3:54 PM | | procedure are in the | | | | PDT | | results section. | + +--------+ + + + | CAPILLARY BLOOD | Routin | 09/13/2017 | Right renal mass | Results for this | | GLUCOSE (NO CHG), | e | 2:47 PM | | procedure are in the | | POC | | PDT | | results section. | + +--------+ + + + | PROCEDURE NOTE | Routin | 09/13/2017 | | Results for this | | | e | 2:30 PM | | procedure are in the | | | | PDT | | results section. | + +--------+ + + + | ABG-FULL ABL, POC | Urgent | 09/13/2017 | Right renal mass | Results for this | | | | 2:05 PM | | procedure are in the | | | | PDT | | results section. | + +--------+ + + + | ABG-FULL ABL, POC | Urgent | 09/13/2017 | Right renal mass | Results for this | | | | 1:12 PM | | procedure are in the | | | | PDT | | results section. | + +--------+ + + + | ABG-FULL ABL, POC | Urgent | 09/13/2017 | Right renal mass | Results for this | | | | 12:15 PM | | procedure are in the | | | | PDT | | results section. | + +--------+ + + + | SURGICAL PATHOLOGY | Routin | 09/13/2017 | | Results for this | | | e | 12:02 PM | | procedure are in the | | | | PDT | | results section. | + +--------+ + + + | PRODUCT - RED CELLS | Routin | 09/13/2017 | | Results for this | | LEUKOREDUCED | e | 11:39 AM | | procedure are in the | | | | PDT | | results section. | + +--------+ + + + | PRODUCT - RED CELLS | Routin | 09/13/2017 | | Results for this | | LEUKOREDUCED | e | 11:38 AM | | procedure are in the | | | | PDT | | results section. | + +--------+ + + + | ABG-FULL ABL, POC | Urgent | 09/13/2017 | Right renal mass | Results for this | | | | 11:30 AM | | procedure are in the | | | | PDT | | results section. | + +--------+ + + + | ANE CVL | Routin | 09/13/2017 | | Results for this | | | e | 9:52 AM | | procedure are in the | | | | PDT | | results section. | + +--------+ + + + | ANE ETT | Routin | 09/13/2017 | | Results for this | | | e | 9:51 AM | | procedure are in the | | | | PDT | | results section. | + +--------+ + + + | ANE ART LINE | Routin | 09/13/2017 | | Results for this | | | e | 9:50 AM | | procedure are in the | | | | PDT | | results section. | + +--------+ + + + | ABG-FULL ABL, POC | Urgent | 09/13/2017 | Right renal mass | Results for this | | | | 9:39 AM | | procedure are in the | | | | PDT | | results section. | + +--------+ + + + | RESECTION OF | Electi | 09/13/2017 | N28.89 (ICD-10-CM) | | | RETROPERITONEAL | ve | 7:30 AM | - 593.9 (ICD-9-CM) | | | TUMOR W/ VASCULAR | Surgic | PDT | - RENAL MASS | | | RECONSTRUCTION | al | | | | + +--------+ + + + +---+--------+ | | | | | Specia | | | l | | | Needs | | | ICU | | | POST- | | | CVICU | | | TEAM | +---+--------+ + +--------+ + +---+ | RADICAL NEPHRECTOMY | Electi | 09/13/2017 | N28.89 (ICD-10-CM) | | | | ve | 7:30 AM | - 593.9 (ICD-9-CM) | | | | Surgic | PDT | - RENAL MASS | | | | al | | | | + +--------+ + +---+ +---+--------+ | | | | | Specia | | | l | | | Needs | | | ICU | | | POST- | | | CVICU | | | TEAM | +---+--------+ + +--------+ + + + | CONFIRMATORY ABO/RH | Routin | 09/13/2017 | | Results for this | | | e | 6:00 AM | | procedure are in the | | | | PDT | | results section. | + +--------+ + + + | CAPILLARY BLOOD | Routin | 09/13/2017 | Right renal mass | Results for this | | GLUCOSE (NO CHG), | e | 5:57 AM | | procedure are in the | | POC | | PDT | | results section. | + +--------+ + + + | INTRAPROCEDURE | Routin | 09/13/2017 | | Results for this | | IMAGING | e | 5:34 AM | | procedure are in the | | | | PDT | | results section. | + +--------+ + + + | CARDIOLOGY | | 09/13/2017 | | Results for this | | | | 12:00 AM | | procedure are in the | | | | PDT | | results section. | + +--------+ + + + | 12 LEAD ECG | Routin | 09/01/2017 | | Results for this | | | e | 11:27 AM | | procedure are in the | | | | PDT | | results section. | + +--------+ + + + | CULTURE, URINE [facility] | Routin | 09/01/2017 | | Results for this | | | e | 11:13 AM | | procedure are in the | | | | PDT | | results section. | + +--------+ + + + | CBC (HEMOGRAM) ONLY | Routin | 09/01/2017 | Preoperative | Results for this | | | e | 11:13 AM | examination Right | procedure are in the | | | | PDT | renal mass | results section. | + +--------+ + + + | ANTIBODY SCREEN | Routin | 09/01/2017 | Preoperative | Results for this | | | e | 11:13 AM | examination Right | procedure are in the | | | | PDT | renal mass | results section. | + +--------+ + + + | ABO & RH TYPE | Routin | 09/01/2017 | Preoperative | Results for this | | | e | 11:13 AM | examination Right | procedure are in the | | | | PDT | renal mass | results section. | + +--------+ + + + | UA, DIPSTICK ONLY | Routin | 09/01/2017 | | Results for this | | | e | 11:13 AM | | procedure are in the | | | | PDT | | results section. | + +--------+ + + + | URINE, MICROSCOPIC | Routin | 09/01/2017 | | Results for this | | EXAM | e | 11:13 AM | | procedure are in the | | | | PDT | | results section. | + +--------+ + + + | URINE SCREEN FOR | Routin | 09/01/2017 | | Results for this | | CULTURE | e | 11:13 AM | | procedure are in the | | | | PDT | | results section. | + +--------+ + + + | TYPE AND SCREEN | Routin | 09/01/2017 | | Results for this | | | e | 11:13 AM | | procedure are in the | | | | PDT | | results section. | + +--------+ + + + | CBC ONLY | Routin | 09/01/2017 | | Results for this | | | e | 11:13 AM | | procedure are in the | | | | PDT | | results section. | + +--------+ + + + | HEMOGLOBIN A1C, | Routin | 09/01/2017 | | Results for this | | BLOOD | e | 11:13 AM | | procedure are in the | | | | PDT | | results section. | + +--------+ + + + | COMPLETE METABOLIC | Routin | 09/01/2017 | | Results for this | | SET | e | 11:13 AM | | procedure are in the | | (NA,K,CL,CO2,BUN,CRE | | PDT | | results section. | | AT,GLUC,CA,AST,ALT,B | | | | | | BIMAL TOTAL,ALK | | | | | | PHOS,ALB,PROT TOTAL) | | | | | + +--------+ [...] | + +--------+ + + + | US KIDNEY & BLADDER | Urgent | 08/31/2017 | Bladder mass | Results for this | | | | 3:43 PM | Renal mass | procedure are in the | | | | PDT | | results section. | + +--------+ + + + from Last Months Results VAS LAB ABDOMINAL DUPLEX LTD ARTERY VEIN (10/21/2017 1:31 PM)Only the most recent of 2 re sults within the time period is included. + + + | Narrative | Performed [...] | | + +---------+ + + | [facility] | | | | | VAS US | | | | + +---------+ + + BASIC METABOLIC SET (NA, K, CL, TCO2, BUN, CR, GLU, CA) (10/07/2017 9:20 AM)Only the most recent of 6 results within the time period is included. + +-------+ + + | Component | Value | Ref Range | Performed At | + +-------+ + + | GLUCOSE, PLASMA | 93 | 65 - 110 mg/dL | NON [facility] | | [...] | + +---------+ + + | NON [facility] | | | | + +---------+ + + [facility] - CBC ONLY (10/06/2017 7:32 AM) + + + + + | Component | Value | Ref Range | Performed At | + + + + + | WHITE CELL COUNT | 6.09 | 3.50 - 10.80 K/cu mm | [facility] | | | | | SERVICES, [...] 45.1 | 35.1 - 46.3 fL | [facility] | | | | | SERVICES, | | | | | [facility] | [facility] + | | | | | [facility] | + + + + + | PLATELET COUNT | 451 (H) | 150 - 400 K/cu mm | [facility] | | | | | SERVICES, | | | | | [facility] | | [facility] | [facility] + | | | | | HEAL[facility] | + + + + + | MPV | 10.7 | 9.7 - 12.3 fL | [facility] | | | | | SERVICES, [...] | + + + + + | [facility] | [address] | [place] [address] | | | SERVICES, [place] [facility] | | | | | HE[facility] + HEALING | | | | + + + + + CH - COMPLETE METABOLIC SET (10/06/2017 7:32 AM) + + + + + | Component | Value | Ref Range | Performed At | + + + + + | GLUCOSE, PLASMA | 81 | 70 - 99 mg/dL | [facility] | | (LAB) | | | SERVICES, | | | | | [facility] | | | | | [facility] + | | | | | HEALING | + + + + + | BUN, PLASMA (LAB) | 20 | 6 - 20 mg/dL | [facility] | | | | | SERVICES, | | | | | [facility] | | | | | [facility] + | | | | | HEALING | + + + + + | CREATININE PLASMA | 1.40 (H) | 0.70 - 1.30 mg/dL | [facility] | | (LAB) | | | SERVICES, | | | | | [facility] | | | | | [facility] + | | | | | HEALING | + + + + + | SODIUM, PLASMA (LAB) | 137 | 134 - 143 mmol/L | [facility] | | | | | SERVICES, [...] 0.6 | 0.3 - 1.2 mg/dL | [facility] | | | | | SERVICES, [...] | + + + + + | [facility] | [address] | [place] [address] | | | [facility] | | | | | HEALTH + HEALING | | | | + + + + + ANTIBODY SCREEN (10/06/2017 7:32 AM)Only the most recent of 2 results within the time hanny od is included. + + + + + | Component | Value | Ref Range | Performed At | + + + + + | Antibody Screen | Negative | | [facility] | | | | | [facility], | | | | | TRANSFUSION | | | | | MEDICINE | + + + + + + + | Specimen | + + | Blood - Blood | + + + + + + + | Performing | Address | City/State/Zipcode | Phone Number | | Organization | | | | + + + + + | [facility] | [address] | [place] [address] | | | SERVICES, | [facility] | | | | TRANSFUSION MEDICINE | | | | + + + + + ABO & RH TYPE (10/06/2017 7:32 AM)Only the most recent of 2 results within the time period is included. + + + + + | Component [...] | + + + + + | [facility] | [address] | [place] [address] | | | [facility] | [facility] | | | | TRANSFUSION MEDICINE | | | | + + + + + CAPILLARY BLOOD GLUCOSE (NO CHG), POC (09/17/2017 8:22 AM)Only the most recent of 16 resul ts within the time period is included. + +---------+ + + | Component | Value | Ref Range | Performed At | + +---------+ + + | BLOOD GLUCOSE, POC | 201 (H) | 70 - 99 mg/dL | [facility] | | | | | [facility] | | | | | CARE TESTS | + +---------+ + + + + + + + | Performing | Address | City/State/Zipcode | Phone Number | | Organization | | | | + + + + + | [facility] | [address] | [place], [place] | | | [facility] [place] [facility] | [address] | [phone] | | | TESTS | | | | + + + + + CBC (HEMOGRAM) ONLY (09/17/2017 4:50 AM)Only the most recent of 6 results within the time period is included. + + + + + | Component | Value | Ref Range | Performed At | + + + + + | WHITE CELL COUNT | 8.56 | 3.50 - 10.80 K/cu mm | [facility] | | | | | SERVICES, CORE | + + + + + | RED CELL COUNT | 3.34 (L) | 4.50 - 6.00 M/cu mm | [facility] | | | | | SERVICES, CORE | + + + + + | HEMOGLOBIN | 7.9 (L) | 13.5 - 17.5 g/dL | [facility] | | | | | SERVICES, CORE | + + + + + | HEMATOCRIT | 26.1 (L) | 41.0 - 53.0 % | [facility] | | | | | SERVICES, CORE | + + + + + | MCV | 78.1 (L) | 80.0 - 100.0 fL | [facility] | | | | | SERVICES, CORE | + + + + + | MCHC | 30.3 (L) | 32.0 - 36.0 g/dL | [facility] | | | | | SERVICES, CORE | + + + + + | RDW SD | 47.7 (H) | 35.1 - 46.3 fL | [facility] | | | | | SERVICES, CORE | + + + + + | PLATELET COUNT | 373 | 150 - 400 K/cu mm | [facility] | | | | | SERVICES, CORE | + + + + + | MPV | 10.4 | 9.7 - 12.3 fL | [facility] | | | | | SERVICES, CORE | + + + + + | NRBC% | 0.0 | 0.0 - 0.3 % | [facility] | | | | | SERVICES, CORE | + + + + + | NRBC# | 0.00 | 0.00 - 0.02 K/cu mm | [facility] | | | | | SERVICES, CORE | + + + + + + + | Specimen | + + | Blood - Blood | + + + + + | Narrative | Performed At | + + + | New reference ranges for MCV, MCHC, PLT, IG% and IG# effective | [facility] | | 08/04/2017 | [facility]ATORY | | | SERVICES, CORE | + + + + + + + + | Performing | Address | City/State/Zipcode | Phone Number | | Organization | | | | + + + + + | [facility] | [address] | [place] [address] | | | SERVICES, CORE | [address] | | | + + + + + PHOSPHORUS, PLASMA (09/17/2017 4:50 AM)Only the most recent of 4 results within the time ervin benavides is included. + +---------+ + + | Component | Value | Ref Range | Performed At | + +---------+ + + | PHOSPHORUS, PLASMA | 2.2 (L) | 2.4 - 4.7 mg/dL | [facility] | | (LAB) | | | [place] | + +---------+ + + + + | Specimen | + + | Blood - Blood | + + + + + + + | Performing | Address | City/State/Zipcode | Phone Number | | Organization | | | | + + + + + | [facility] | [address] [facility] | [place] [address] | | | SERVICES, CORE | [address] | | | + + + + + MAGNESIUM, PLASMA (09/17/2017 4:50 AM)Only the most recent of 4 results within the time joesph dudley is included. + +-------+ + + | Component | Value | Ref Range | Performed At | + +-------+ + + | MAGNESIUM,PLASMA | 2.0 | 1.6 - 2.6 mg/dL | [facility] | | | | | SERVICES, CORE | + +-------+ + + + + | Specimen | + + | Blood - Blood | + + + + + | Narrative | Performed At | + + + | Reference range change effective 11/09/16. 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 Patient with problems swallowing. Recent | RADIOLOGY VOICE | | hospitalization for right nephrectomy for RCC. COMPARISONS: | RECOGNITION 2 | | Outside chest CT 08/19/2017. TECHNIQUE: Various consistencies of | | | barium given by speech pathology. Fluoroscopy assistance provided to | | | speech pathology for performance of modified barium swallow. | | | Fluoro Time 109 second(s) IMPRESSION: Penetration without | | | aspiration with thin barium. Prominent cricopharyngeal muscle with | | | focal narrowing of the esophagus at C6-C7. There is residual honey | | | thick barium and soft fruit with barium within the vallecula and | | | cervical esophagus, proximal to this narrowing. Decreased residual | | | with sips of thin barium. See esophagram for further evaluation. | | | Please see speech pathology report for full details. I have | | | personally reviewed the images and, if necessary, edited the report. I | | | agree with the report as now presented. 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 Patient with problems swallowing. Recent | | hospitalization for right nephrectomy for RCC. COMPARISONS: Outside chest CT 08/19/2017. | | TECHNIQUE: Various consistencies of barium given by speech pathology. Fluoroscopy | | assistance provided to speech pathology for performance of modified barium swallow. | | Fluoro Time 109 second(s) IMPRESSION:Penetration without aspiration with thin barium. | | Prominent cricopharyngeal muscle with focal narrowing of the esophagus at C6-C7. There | | is residual honey thick barium and soft fruit with barium within the vallecula and | | cervical esophagus, proximal to this narrowing. Decreased residual with sips of thin | | barium. See esophagram for further evaluation. Please see speech pathology report for | | full details. I have personally reviewed the images and, if necessary, edited the | | report. I agree with the report as now presented. Final signature: Remington Kruse MD | | 09/15/2017 10:00 AM Preliminary: Josefina Toribio MD 09/14/2017 3:21 PM Dictation | | initiated: Josefina Toribio MD 09/14/2017 3:10 PM | |I have personally reviewed the images and, if necessary, edited the report. I agree with pilo report as now presented. | | | |Final signature: Remington Kruse MD 09/15/2017 10:00 AM | |Preliminary: Josefina Toribio MD 09/14/2017 3:21 PM | |Dictation initiated: Josefina Toribio MD 09/14/2017 3:10 PM | + + + +---------+ + + | Performing | Address | City/State/Zipcode | Phone Number | | Organization | | | | + +---------+ + + | [facility] | | | | | VOICE RECOGNITION 2 | | | | + +---------+ + + X-RAY ESOPHAGRAM (09/14/2017 3:00 PM) + + + | Narrative | Performed At | + + + | EXAM: Esophagram HISTORY: Dysphagia. Recent hospitalization | [facility] | | for nephrectomy for right RCC. COMPARISON: Same day modified | RADIOLOGY VOICE | | barium swallow 09/14/[address] 08/19/2017 TECHNIQUE: | RECOGNITION 2 | | Thick and thin barium administered. Radiation dose reduction | | | technique was maximized where appropriate using pulsed fluoroscopy and | | | fluoro-store images. Fluoro Time 81 second(s) FINDINGS: | | | Focal short segment smooth narrowing of the upper esophagus in | | | region of prominent cricopharyngeal muscle (best appreciated on | | | modified barium study). The bilateral narrowing of the esophagus on AP | | | views may be from compression by enlarged thyroid (best seen on CT | | | 08/19/2017). Moderate esophageal dysmotility of the mid to distal | | | esophagus. No other esophageal narrowing identified. No hiatal | | | hernia identified. Barium passes into the stomach. IMPRESSION: | | | Focal short segment smooth narrowing of upper esophagus in region of | | | prominent cricopharyngeal muscle. There may be component of | | | compression by the enlarged thyroid. Moderate distal esophageal | | | dysmotility. I have personally reviewed the images and, if | | | necessary, edited the report. I agree with the report as now | | | presented. Final signature: Remington Kruse MD 09/15/2017 9:59 | | | AM Preliminary: Josefina Toribio MD 09/14/2017 3:27 PM Dictation | | | initiated: Josefina Toribio MD 09/14/2017 3:22 PM | | + + + + + | Procedure Note | + + | Service Account, [facility] In Interface - 09/15/2017 10:05 AM PDT EXAM: Esophagram | | HISTORY: Dysphagia. Recent hospitalization for nephrectomy for right RCC. COMPARISON: | | Same day modified barium swallow 09/14/[address] 08/19/2017 TECHNIQUE: | | Thick and thin barium administered. Radiation dose reduction technique was maximized | | where appropriate using pulsed fluoroscopy and fluoro-store images. Fluoro Time 81 | | second(s) FINDINGS: Focal short segment smooth narrowing of the upper esophagus in | | region of prominent cricopharyngeal muscle (best appreciated on modified barium study). | | The bilateral narrowing of the esophagus on AP views may be from compression by enlarged | | thyroid (best seen on CT 08/19/2017). Moderate esophageal dysmotility of the mid to | | distal esophagus. No other esophageal narrowing identified. No hiatal hernia | | identified. Barium passes into the stomach. IMPRESSION: Focal short segment smooth | | narrowing of upper esophagus in region of prominent cricopharyngeal muscle. There may be | | component of compression by the enlarged thyroid. Moderate distal esophageal | | dysmotility. I have personally reviewed the images and, if necessary, edited the report. | | I agree with the report as now presented. Final signature: Remington Kruse MD | | 09/15/2017 9:59 AM Preliminary: Josefina Toribio MD 09/14/2017 3:27 PM Dictation | | initiated: Josefina Toribio MD 09/14/2017 3:22 PM | |Focal short segment smooth narrowing of upper esophagus in region of prominent cricopharyng eal muscle. There may be component of compression by the enlarged thyroid. | | | |Moderate distal esophageal dysmotility. | | | |I have personally reviewed the images and, if necessary, edited the report. I agree with th e report as now presented. | | | |Final signature: Remington Kruse MD 09/15/2017 9:59 AM | |Preliminary: Josefina Toribio MD 09/14/2017 3:27 PM | |Dictation initiated: Josefina Toribio MD 09/14/2017 3:22 PM | + + + +---------+ + + | Performing | Address | City/State/Zipcode | Phone Number | | Organization | | | | + +---------+ + + | [facility] | | | | | VOICE RECOGNITION 2 | | | | + +---------+ + + PROCEDURE NOTE (09/14/2017 1:13 PM) + + + | Narrative | Performed At | + + + | Farhat Young MD 09/19/2017 5:06 PM Date: 09/13/2017 | | | Author: Farhat Young MD Attending Surgeon: Farhat Young MD | | | Co-Surgeon: Alex Rubin MD Assistants: Jamaal Marshall MD | | | Prior to the beginning of the procedure the team paused to verify | | | the patient's identity, as well as the procedure to be performed and | | | the correct side/site. All equipment required was ready and | | | available. The patient was positioned appropriately. Preoperative | | | Diagnosis: renal mass with IVC and left renal vein ostium invasion. | | | Postoperative Diagnosis: Same Procedure Performed: | | | reconstruction of inferior vena cava with 20 mm ringed PTFE | | | interposition graft and left renal vein implantation Indication | | | for the Procedure: This is a 71 year old male with right renal mass | | | and caval thrombus who underwent resection with Dr. Rubin. He was | | | noted to have gross invasion of the inferior vena cava as well as | | | along the posterior wall of the left renal vein ostium and we were | | | consulted for vena cava reconstruction after resection. | | | Procedure in Detail: Please refer to Dr. Rubin's dictation for details | | | of the dissection, caval control, and resection of the right renal | | | mass. When it was clear that patient had invasion of the vena cava, | | | we were consulted to help with caval reconstruction. The | | | specimen was removed and addition dissection of the proximal and | | | distal vena cava was carried out and Helena tourniquet replaced with | | | vascular clamps. The affected inferior vena cava was resected | | | and then separate proximal and distal caval margins along with left | | | renal vein margins were obtained and sent for frozen pathology by | | | removing an additional cuff of vein and marking for | | | orientation. An end to end anastomosis was created with running | | | 5-0 Prolene suture in the inflow vein. The graft was then cut to | | | length and end to end anastomosis created with running 5-0 Prolene | | | suture of the outflow vein. 3 rings were partially resected along | | | the medial wall of the graft and graftotomy created in an | | | ellipse. An end to end anastomosis was created with the left | | | renal vein with running 5-0 Prolene suture. Prior to completing the | | | anastomosis, the renal vein and cava were allowed to bleed and | | | back-bleed then anastomosis completed and tied down under flow to | | | de-air the graft. The case was then turned back to Dr. Rubin's | | | team. This has been electronically signed by FARHAT YOUNG MD, | | | 09/14/2017 at 1:14 PM. | | + + + PROCEDURE NOTE (09/13/2017 6:59 PM)RENAL FUNCTION SET (NA,K,CL,CO2,BUN,CREAT,GLUC,CA,PHOS, ALB ) (09/13/2017 4:25 PM) + +---------+ + + | Component | Value | Ref Range | Performed At | + +---------+ + + | GLUCOSE, PLASMA | 116 (H) | 70 - 99 mg/dL | [facility] | | (LAB) | | | SERVICES, CORE | + +---------+ + + | BUN, PLASMA (LAB) | 16 | 6 - 20 mg/dL | [facility] | | | | | SERVICES, CORE | + +---------+ + + | CREATININE PLASMA | 0.97 | 0.70 - 1.30 mg/dL | [facility] | | (LAB) | | | SERVICES, CORE | + +---------+ + + | EGFR - | >60 | >60 mL/min | [facility] | | [facility] | | | SERVICES, CORE | + +---------+ + + | EGFR NON | >60 | >60 mL/min | [facility] | | -[facility]I | | | SERVICES, CORE | + +---------+ + + | SODIUM, PLASMA (LAB) | 142 | 136 - 145 mmol/L | [facility] | | | | | SERVICES, CORE | + +---------+ + + | POTASSIUM, PLASMA | 3.9 | 3.4 - 5.0 mmol/L | [facility] | | (LAB) | | | SERVICES, CORE | + +---------+ + + | CHLORIDE, PLASMA | 110 (H) | 97 - 108 mmol/L | [facility] | | (LAB) | | | SERVICES, CORE | + +---------+ + + | TOTAL CO2, PLASMA | 25 | 21 - 32 mmol/L | [facility] | | (LAB) | | | SERVICES, [facility] | + +---------+ + + | CALCIUM, PLASMA | 7.4 (L) | 8.6 - 10.2 mg/dL | [facility] | | (LAB) | | | SERVICES, CORE | + +---------+ + + | CALCIUM(ALB | 8.8 | 8.6 - 10.2 mg/dL | [facility] | | CORRECTED) | | | [facility] | + +---------+ + + | ALBUMIN, PLASMA | 2.2 (L) | 3.5 - 4.7 g/dL | [facility] | | (LAB) | | | SERVICES, CORE | + +---------+ + + | PHOSPHORUS, PLASMA | 2.9 | 2.4 - 4.7 mg/dL | [facility] | | (LAB) | | | SERVICES, CORE | + +---------+ + + | POTASSIUM CMNT | No Hemo | | [facility] | | | | | SERVICES, CORE | + +---------+ + + | ANION GAP | 7 | 4 - 11 mmol/L | [facility] | | | | | SERVICES, CORE | + +---------+ + + | ANION GAP(ALB | 11 | 4 - 11 mmol/L | [facility] | | CORRECTED) | | | SERVICES, CORE | + +---------+ + + + + | Specimen | + + | Blood - Blood | + + + + + | Narrative | Performed At | + + + | GFR is estimated using the MDRD equation recommended by the | [facility] | | National Kidney Disease Education Program. Estimated GFR | LABORATORY | | Interpretive Information: <60 mL/min/1.73 sq | SERVICES, CORE | | m Chronic Kidney Disease <15 mL/min/1.73 | | | sq m Kidney Failure Estimated GFR greater | | | that 60 mL/min/1.73 sq m is of limited clinical value. The MDRD | | | equation is not valid in the following situations: - Patients under | | | 18 years of age - Severe malnutrition or obesity - Vegetarian diet | | | - Rapidly changing kidney function - Amputees, paraplegics, or other | | | muscle-wasting diseses | | + + + + + + + + | Performing | Address | City/State/Zipcode | Phone Number | | Organization | | | | + + + + + | [facility] | [address] | [place] [address] | | | SERVICES, CORE | [address] | | | + + + + + X-RAY PORTABLE CHEST 1 VIEW (09/13/2017 3:54 PM) + + + | Narrative | Performed At | + + + | EXAM: [place] CHEST 1 VIEW HISTORY: verify central line placement | [facility] | | COMPARISON: 08/31/2017 FINDINGS: Right IJ central venous | RADIOLOGY VOICE | | catheter with tip terminating within the lower SVC. The | RECOGNITION 2 | | cardiomediastinal silhouette is within normal limits. There is no | | | significant pneumothorax or pleural effusion. Left lower lung zone | | | nodular airspace opacities are more completely characterized on the | | | comparison cross-sectional imaging. No interval development of | | | consolidative airspace opacities. No acute displaced rib fracture. | | | IMPRESSION: Right IJ central venous catheter with tip terminating | | | within the mid to lower SVC. Bilateral lung zone nodules are more | | | completely characterized on the recent comparison cross-sectional | | | imaging. I have personally reviewed the images and, if necessary, | | | edited the report. I agree with the report as now presented. | | | Final signature: Eduin Leon MD 09/13/2017 3:37 PM | | | Preliminary: Eduin Leon MD Dictation initiated: Eduin Leon MD 09/13/2017 3:33 PM | | + + + + + | Procedure Note | + + | Service Account, Radiant Res In Interface - 09/13/2017 3:54 PM PDT EXAM: [place] CHEST 1 | | VIEW HISTORY: verify central line placement COMPARISON: 08/31/2017 FINDINGS: Right IJ | | central venous catheter with tip terminating within the lower SVC. The cardiomediastinal | | silhouette is within normal limits. There is no significant pneumothorax or pleural | | effusion. Left lower lung zone nodular airspace opacities are more completely | | characterized on the comparison cross-sectional imaging. No interval development of | | consolidative airspace opacities. No acute displaced rib fracture. IMPRESSION: Right IJ | | central venous catheter with tip terminating within the mid to lower SVC. Bilateral lung | | zone nodules are more completely characterized on the recent comparison cross-sectional | | imaging. I have personally reviewed the images and, if necessary, edited the report. I | | agree with the report as now presented. Final signature: Eduin Leon MD | | 09/13/2017 3:37 PM Preliminary: Eduin Leon MD Dictation initiated: Eduin Osorio | Sydnie Leon MD 09/13/2017 3:33 PM | | | |IMPRESSION: | | | |Right IJ central venous catheter with tip terminating within the mid to lower SVC. | | | |Bilateral lung zone nodules are more completely characterized on the recent comparison cros s-sectional imaging. | | | |I have personally reviewed the images and, if necessary, edited the report. I agree with th e report as now presented. | | | |Final signature: Eduin Leon MD 09/13/2017 3:37 PM | |Preliminary: Eduin Leon MD | |Dictation initiated: Eduin Leon MD 09/13/2017 3:33 PM | + + + +---------+ + + | Performing | Address | City/State/Zipcode | Phone Number | | Organization | | | | + +---------+ + + | [facility] | | | | | VOICE RECOGNITION 2 | | | | + +---------+ + + PROCEDURE NOTE (09/13/2017 2:30 PM) + + + | Narrative | Performed At | + + + | Cristy Rubin MD 09/13/2017 2:39 PM Date of Service: | | | 09/13/17 Preoperative diagnosis: renal mass, IVC thrombus | | | Postoperative diagnosis: renal mass, IVC thrombus Procedure | | | performed: 1. Open right radical nephrectomy and caval thrombectomy | | | 2. Excision of vena cava 3. Grafting of vena cava (by Dr. Young) 4. | | | Retroperitoneal lymph node dissection (paracaval dissection) | | | Primary surgeon: Alex Rubin MD Co-surgeon: Farhat Young MD First | | | Asst.: Kobe Krishnan MD Anesthesia: General Estimated blood | | | loss: 1200 mL IV fluids: 6300 mL crystalloid Postoperative | | | drains: 1. 16 Fr motta catheter Specimens: 1. right kidney | | | and adrenal 2. paracaval lymph nodes. 4. Vena cava 5. Frozen | | | section superior, left renal vein and inferior IVC margins | | | Findings: gross invasion of vena cava and left renal vein ostium in | | | multiple areas, requiring resection of vena cava and ringed PTFE | | | graft. Single renal artery ligated. Indications For | | | Procedure: This is a 71 y.o. male with a diagnosis of right | | | kidney mass and level II caval thrombus. The risks, benefits, | | | indications and alternatives of the procedure were explained in | | | detail. The patient elected to proceed. Procedure In | | | Detail: The patient was brought to the operating room and | | | identified by name and wrist band. The patient was placed on the | | | table in supine position. After induction of general anesthesia, | | | the patient received 5000 units of heparin subcutaneously as well as | | | 2 g of cefazolin IV. All pressure points were adequately | | | padded. SCDs were placed for DVT prophylaxis. The abdomen was | | | shaved and prepped in usual sterile fashion and a time-out was | | | performed confirming the proper patient, site and procedure. A 16 Fr | | | Motta catheter was placed at the start of the case. We began by | | | making a chevron incision down to the level of the fascia. The | | | white line of Toldt was dissected sharply, allowing for medial | | | reflection of the colon. The duodenum was kocherized. The | | | renal hilum was then identified. The renal artery was | | | skeletonized in the interaortocaval region and taken with 0-silk | | | suture and a clip was also left on the aorta side. We turned our | | | attention to isolating the vena cava. We e got entirely around the | | | vena cava and placed a Helena tourniquet below the tumor thrombus in | | | the infrarenal vena cava as well as above the thrombus at the level | | | of theintrahepatic cava. Lumbar vessels were carefully ligated. The | | | left renal vein was encircled with a vessel loop. At this point we | | | decided to perform a test clamp of the vena cava. The patient was | | | able to tolerate this and as such all of the Helena tourniquet as | | | well as the vessel loop on the contralateral renal vein were cinched | | | down. The vena cava was opened sharply using Shaw | | | scissors And the thrombus was identified and extracted. There | | | was clear invasion of the wall of the vena cava by the tumor | | | thrombus in multiple locations, including the left renal vein ostium | | | so the decision was made to resect the cava. A separate segment of | | | vena cava from each area was sent for margin as a frozen section. | | | The entire vena cava was irrigated with sterile water. We then | | | turned our attention to mobilizing the remainder of the kidney. Due | | | to parasitic vessels, the inferior cone of gerota's (including the | | | ureter) was divided with the endoGIA stapler device and a purple | | | load. The gonadal vein was ligated. This was done with the LigaSure | | | device and then the kidney and renal vein with tumor thrombus | | | were passed off as well. A paracaval lymph node dissection was | | | performed and clips and cautery were used to control lymphatics. The | | | entire area was irrigated with sterile water and inspected for | | | hemostasis. Tisseel was applied over the retroperitoneum as well as | | | the hilar stump. An area of the liver capsule that showed some | | | bleeding was controlled with the argon beam handhole machine operator. Dr. Young | | | was consulted for replacement of the vena cava with PTFE graft. | | | Please see her operative report for details. Intraoperative frozen | | | section confirmed that all margins were free of carcinoma prior to | | | completing the grafting. The area was irrigated with 2 L of | | | sterile water. The fascia was closed using two #1 PDS in a | | | running fashion in two separate layers. The subcutaneous tissues | | | were irrigated copiously with saline. Subcutaneous fat in | | | theincision was reapproximated using a 3-0 Vicryl in a running | | | fashion, and then the skin was closed using 4-0 Biosyn in a | | | subcuticular fashion. Dermabond was applied to all the | | | incisions, and all needle, sponge and instrument counts were correct | | | x2 at the end of the case. The patient was then awakened from | | | anesthesia and transported to the PACU. I was present and | | | scrubbed during the entirety of the case. Alex Rubin MD | | | [facility] Setter Department of Urology [facility] | | | [place] | | + + + ABG-FULL ABL, POC (09/13/2017 2:05 PM)Only the most recent of 5 results within the time joesph dudley is included. + + + + + | Component | Value | Ref Range | Performed At | + + + + + | PH ARTERIAL, POC | 7.43 | 7.37 - 7.44 | [facility] | | | | | QUIN, POINT OF | | | | | CARE TESTS | + + + + + | PO2 ARTERIAL, POC | 129 (H) | 72 - 104 mmHg | [facility] | | | | | QUIN, POINT OF | | | | | CARE TESTS | + + + + + | PCO2 ARTERIAL, POC | 42 | 32 - 43 mmHg | [facility] | | | | | QUIN, POINT OF | | | | | CARE TESTS | + + + + + | TOTAL HEMOGLOBIN, | 7.4 (L) | 13.5 - 17.5 g/dL | [facility] | | POC | | | QUIN, POINT OF | | | | | CARE TESTS | + + + + + | O2 SAT ARTERIAL, POC | 98.5 (H) | 92.0 - 98.0 % | [facility] | | | | | QUIN, POINT OF | | | | | CARE TESTS | + + + + + | OXYHEMOGLOBIN, POC | 96.5 | 94.0 - 100 % | [facility] | | | | | QUIN POINT OF | | | | | CARE TESTS | + + + + + | HEMATOCRIT, POC | 22.6 (L) | 41.0 - 53.0 % | [facility] | | | | | QUIN POINT OF | | | | | CARE TESTS | + + + + + | POTASSIUM, POC | 4.0 | 3.4 - 5.0 mmol/L | [facility] | | | | | QUIN POINT OF | | | | | CARE TESTS | + + + + + | SODIUM, POC | 142 | 134 - 143 mmol/L | [facility] | | | | | QUIN POINT OF | | | | | CARE TESTS | + + + + + | ALINE IONIZED CA, POC | 1.15 | 1.14 - 1.32 mmol/L | [facility] | | | | | QUIN, POINT OF | | | | | CARE TESTS | + + + + + | CHLORIDE, POC | 107 | 97 - 108 mmol/L | [facility] | | | | | QUIN, POINT OF | | | | | CARE TESTS | + + + + + | GLUCOSE, POC | 124 (H) | 70 - 99 mg/dL | [facility] | | | | | QUIN, POINT OF | | | | | CARE TESTS | + + + + + | HCO3 ARTERIAL, POC | 27.3 | 21 - 28 mmol/L | [facility] | | | | | QUIN, POINT OF | | | | | CARE TESTS | + + + + + | BASE EXCESS | 2.9 | | [facility] | | ARTERIAL, POC | | | QUIN, POINT OF | | | | | CARE TESTS | + + + + + | LACTATE ARTERIAL, | 1.2 | 0.5 - 1.6 mmol/L | [facility] | | POC | | | QUIN, POINT OF | | | | | CARE TESTS | + + + + + | METHEMOGLOBIN, POC | 0.9 | 0.0 - 1.9 % | [facility] | | | | | QUIN, POINT OF | | | | | CARE TESTS | + + + + + | PAT TEMP ART, POC | 37.0 | | [facility] | | | | | QUIN, POINT OF | | | | | CARE TESTS | + + + + + + + | Specimen | + + | Blood - Blood | + + + + + + + | Performing | Address | City/State/Zipcode | Phone Number | | Organization | | | | + + + + + | [facility] | [address] | [place], [place] | | | [facility] | [address] | [address] | | | TESTS | | | | + + + + + SURGICAL PATHOLOGY (09/13/2017 12:02 PM) + + + + + | Component | Value | Ref Range | Performed At | + + + + + | Clinical History | N28.89 (ICD-10-CM) - | | [facility] | | | 593.9 (ICD-9-CM) - RENAL | | OF PATHOLOGY | | | MASS | | | + + + + + | Final Pathologic | A. Right kidney and | | [facility] | | Diagnosis | adrenal gland, radical | | OF PATHOLOGY | | | nephrectomy: Clear | | | | | cell renal cell | | | | | carcinoma, 8.1 cm, | | | | | WHO/ISUP nuclear grade | | | | | 3, see synopsis | | | | | Carcinoma invades the | | | | | renal hilum and the | | | | | renal vein Margins: | | | | | Carcinoma present as | | | | | small vessel vascular | | | | | invasion at hilar soft | | | | | tissue resection | | | | | margin All other | | | | | margins negative for | | | | | malignancy Background | | | | | renal parenchyma with | | | | | moderate | | | | | arteriosclerosis and | | | | | focal global | | | | | glomerulosclerosis | | | | | Adrenal gland with no | | | | | diagnostic abnormality | | | | | AJCC pathologic stage | | | | | (8th edition): pT3c | | | | | N0B. Paracaval lymph | | | | | nodes, dissection: Two | | | | | lymph nodes negative | | | | | for carcinoma (0/2)C.IVC | | | | | posterior superior | | | | | margin, biopsy: Vessel | | | | | wall, negative for | | | | | malignancyD. IVC | | | | | inferior posterior | | | | | margin, biopsy: Vessel | | | | | wall, negative for | | | | | malignancyE. Left renal | | | | | vein margin, biopsy: | | | | | Vessel wall, negative | | | | | for malignancyF. | | | | | Inferior vena cava, | | | | | excision: Metastatic | | | | | renal cell carcinoma | | | | | present as multiple foci | | | | | (up to 2.0 cm) invading | | | | | vessel wall Carcinoma | | | | | present at specimen | | | | | edge opposite left renal | | | | | vein; see specimens C-E | | | | | for additional | | | | | margins All other | | | | | specimen margins | | | | | negative for | | | | | malignancyCase seen | | | | | by:Doron Bhakta MD | | | | | | | | | | Surgical Pathology | | | | | FellowPhijaylan Batista, | | | | | , PhD | | | | | | | | | | Pathologist My | | | | | electronic signature | | | | | indicates that I have | | | | | personally reviewed all | | | | | diagnostic slides, the | | | | | gross and/or microscopic | | | | | portion of this report | | | | | and formulated the final | | | | | diagnosis. | | | + + + + + | SYNOPTIC REPORTS | KIDNEY: | | [facility] | | | Nephrectomy (Kidney | | OF PATHOLOGY | | | Res - All Specimens) | | | | | SPECIMEN | | | | | Procedure: Radica | | | | | l nephrectomy | | | | | Specimen | | | | | Laterality: Right | | | | | TUMOR Tumor | | | | | Site: Middle | | | | | Histologic | | | | | Type: Clear cell | | | | | renal cell carcinoma | | | | | Histologic Grade | | | | | (WHO / ISUP | | | | | Grade): G3: | | | | | Nucleoli conspicuous and | | | | | eosinophilic at 100x | | | | | magnification Tumor | | | | | Size: Greatest | | | | | dimension in Centimeters | | | | | (cm): 8.1 Centimeters | | | | | (cm) Tumor | | | | | Focality: Unifoca | | | | | l Tumor | | | | | Extent: | | | | | Tumor | | | | | Extension: Tumor | | | | | extension into renal | | | | | sinus Tumor | | | | | Extension: Tumor | | | | | extension into major | | | | | vein (renal vein or its | | | | | segmental branches, | | | | | inferior vena cava) | | | | | Accessory | | | | | Findings: | | | | | Sarcomatoid | | | | | Features: Not | | | | | identified | | | | | Rhabdoid | | | | | Features: Not | | | | | identified | | | | | Tumor | | | | | Necrosis: Present | | | | | Percentage | | | | | of Necrosis: 10 | | | | | % Lymphovascular | | | | | | | | | | Invasion: Present | | | | | MARGINS | | | | | Margins: Uninvolv | | | | | ed by invasive carcinoma | | | | | LYMPH NODES Number | | | | | of Lymph Nodes | | | | | Involved: 0 | | | | | Number of Lymph Nodes | | | | | Examined: 2 | | | | | PATHOLOGIC STAGE | | | | | CLASSIFICATION (pTNM, | | | | | AJCC 8th Edition) | | | | | Primary Tumor | | | | | (pT): pT3c | | | | | Regional Lymph Nodes | | | | | (pN): pN0 | | | | | ADDITIONAL FINDINGS | | | | | Pathologic Findings in | | | | | Nonneoplastic | | | | | Kidney: Glomerula | | | | | r disease: focal global | | | | | glomerulsclerosis | | | | | Pathologic Findings in | | | | | Nonneoplastic | | | | | Kidney: Vascular | | | | | disease: moderate | | | | | arteriosclerosis | | | + + + + + | Gross Description | Received are 6 specimens | | [facility] | | | fresh in containers | | OF PATHOLOGY | | | labeled with the | | | | | patient's name (initials | | | | | DG) and medical record | | | | | number [id number]. | | | | | Kidney, Right Kidney & | | | | | Adrenal Gland: Received | | | | | labeled "right kidney & | | | | | adrenal gland-A" | | | | | Specimen size: 672 g, | | | | | 17.9 SI x 11.2 ML x 6.9 | | | | | AP cm External surface: | | | | | Gerota's fascia on | | | | | anterior = 13.0 x 7.8 | | | | | cm, inked blueAdrenal | | | | | gland: 3.8 x 2.9 x 1.2 | | | | | cm Kidney: 11.6 SI x 7.9 | | | | | ML x 6.5 AP cmRenal | | | | | Vein: 1.2 L x 4.2 D | | | | | cmRenal Artery: 0.9 L x | | | | | 0.6 D cmUreter: 11.0 L | | | | | x 0.5 D cm Lesion: | | | | | Location: Mid pole, | | | | | anterior/posterior Size: | | | | | 8.1 x 7.5 x 6.6 cm | | | | | Description: Rice-white, | | | | | infiltrative, | | | | | heterogenous, 25% | | | | | hemorrhage and necrosis | | | | | Extent of invasion: | | | | | Adherent to specimen | | | | | renal vein margin, 0.4 | | | | | cm from renal artery | | | | | margin, 11.8 cm from | | | | | ureter margin, possible | | | | | extension through renal | | | | | capsule and coming | | | | | within 0.1 cm of | | | | | gerota's fascia, | | | | | involving renal pelvis | | | | | and sinus adipose | | | | | tissue, and 0.1 cm from | | | | | adrenal glandDistance to | | | | | margins: Adherent to | | | | | renal vein margin, with | | | | | a 4.5 x 3.2 x 2.0 cm | | | | | tumor thrombus0.1 cm to | | | | | closest perinephric | | | | | adipose margin at hilum | | | | | near renal veinOther | | | | | Findings: Rice-pink | | | | | parenchyma, moderately | | | | | defined corticomedullary | | | | | junction with a 0.7 cm | | | | | cortextLymph nodes: | | | | | Absent Inking scheme: | | | | | Gerota | | | | | | | | | | s fascia=blue, remaining | | | | | outer surface | | | | | =blackSubmitted: | | | | | Youth Care Specialist A1: Renal | | | | | vein margin, | | | | | perpendicular | | | | | sectionsA2: Renal artery | | | | | and ureter margins, en | | | | | faceA3: Mass to renal | | | | | pelvisA4: Mass to renal | | | | | sinus adipose tissueA5: | | | | | Mass to adrenal glandA6: | | | | | Mass to gerota's | | | | | fascia, with possible | | | | | extra capsular | | | | | extensionA7: Mass to | | | | | perinephric adipose | | | | | margin at hilumA8: Mass | | | | | to uninvolved renal | | | | | parenchymaA9: Mass to | | | | | renal capsule A10: | | | | | Uninvolved | | | | | corticomedullary | | | | | junctionB. Lymph node, | | | | | Paracaval Lymph Nodes: | | | | | Received labeled | | | | | "paracaval lymph | | | | | nodes-B" a rice-brown | | | | | fragment fragment of | | | | | tissue 0.5 x 3 x 1.4 cm | | | | | in, dissected and | | | | | palpated to yield 2 | | | | | possible lymph node | | | | | measuring 1.0 1.8 cm in | | | | | greatest dimension. | | | | | Candidate lymph nodes | | | | | are differentially inked | | | | | and bisected. The | | | | | specimen is submitted | | | | | entirely.B1: Candidate | | | | | lymph nodes, bisectedB2: | | | | | Remainder of specimenC. | | | | | Abdominal, IVC | | | | | Posterior Superior | | | | | Margin: Received for | | | | | intraoperative | | | | | consultation labeled | | | | | "IVC posterior superior | | | | | margin-C" is a 0.8 x 0.3 | | | | | x 0.2 cm portion of | | | | | rice-pink vessel wall. | | | | | The specimen is | | | | | submitted entirely for | | | | | frozen section diagnosis | | | | | and resubmitted, | | | | | wrapped, in cassette | | | | | C1.D. Abdominal, IVC | | | | | Inferior Posterior | | | | | Margin: Received for | | | | | intraoperative | | | | | consultation labeled | | | | | "IVC inferior posterior | | | | | margin-D" is a 0.7 x 0.3 | | | | | x 0.2 cm portion of | | | | | rice-pink vessel wall. | | | | | The specimen is | | | | | submitted entirely for | | | | | frozen section diagnosis | | | | | and resubmitted, | | | | | wrapped, in cassette | | | | | D1.E. Abdominal, Left | | | | | Renal Vein Margin: | | | | | Received for | | | | | intraoperative | | | | | consultation labeled | | | | | "left renal vein | | | | | margin-E" is a 0.9 x 0.3 | | | | | x 0.2 cm portion of | | | | | rice-pink vessel wall. | | | | | The specimen is | | | | | submitted entirely for | | | | | frozen section diagnosis | | | | | and resubmitted, | | | | | wrapped, in cassette | | | | | E1.F. Abdominal, | | | | | Inferior Vena Cava: | | | | | Received labeled | | | | | "inferior vena cava-F" | | | | | is an oriented, | | | | | rice-pink, ragged and | | | | | irregular sheet of | | | | | vessel wall (6.7 x 3.0 x | | | | | 0.5 cm) with multiple | | | | | adherent tumor implants | | | | | ranging in greatest | | | | | dimension from 0.2-2.0 | | | | | cm. The specimen is | | | | | received with a short | | | | | stitch designating | | | | | superior, a long stitch | | | | | designating left renal | | | | | vein, and a double | | | | | stitch designating right | | | | | renal vein ostium. The | | | | | superior stitch is | | | | | arbitrarily designated | | | | | as 12:00 and the | | | | | specimen is inked as | | | | | follows: 12-3 | | | | | o'clock=blue, 3-6 | | | | | o'clock=green, 6-9 | | | | | o'clock=yellow, 9-12 | | | | | o'clock=orange, right | | | | | renal vein | | | | | ostium=purple, and | | | | | adventitial | | | | | margin=black. The | | | | | specimen is sectioned to | | | | | show tumor implants | | | | | coming within 0.1 cm of | | | | | the margin at 2 o'clock, | | | | | 3 o'clock (marked left | | | | | renal vein), and 9 | | | | | o'clock. Youth Care Specialist | | | | | sections are submitted | | | | | and mapped.F1: Tumor | | | | | implant to 2 o'clock | | | | | margin and right renal | | | | | vein ostiumF2: Tumor | | | | | implant to 3 o'clock | | | | | margin (marked left | | | | | renal vein)F3: Tumor | | | | | implant to 9 o'clock | | | | | margin F4: Tumor implant | | | | | to right renal vein | | | | | ostiumF5: Perpendicular | | | | | sections of 12 o'clock | | | | | and 6 o'clock(RLW) | | | + + + + + | Intraoperative use | Frozen section | | [facility] | | only - Final | diagnosis: C1. | | OF PATHOLOGY | | diagnosis listed | Abdominal. IVC Posterior | | | | separately | Superior Margin : | | | | | Negative for malignancy, | | | | | no definite | | | | | RCC-deferFrozen section | | | | | pathologist(s): Mike | | | | | MD James, PhD | | | | | | | | | | PathologistFrozen | | | | | section diagnosis: D1. | | | | | Abdominal. IVC Inferior | | | | | Posterior Margin : | | | | | Negative for malignancy, | | | | | no definite | | | | | RCC-deferFrozen section | | | | | pathologist(s): Mike | | | | | MD James, PhD | | | | | | | | | | PathologistFrozen | | | | | section diagnosis: E1. | | | | | Abdominal. Left Renal | | | | | Vein Margin: Negative | | | | | for malignancy, no | | | | | definite RCC-deferFrozen | | | | | section pathologist(s): | | | | | Mike Ramirez MD, PhD | | | | | | | | | | | | | | | Pathologist | | | + + + + + | ANCILLARY | Analyte specific | | [facility] DEPARTMENT | | INFORMATION | reagents are used in | | OF PATHOLOGY | | | many laboratory tests | | | | | necessary for standard | | | | | medical care. This test | | | | | was developed and its | | | | | performance | | | | | characteristics | | | | | determined by [facility] | | | | | laboratories. It has | | | | | not been cleared or | | | | | approved by the [place] Food | | | | | and Drug Administration | | | | | (FDA). FDA does not | | | | | require this test to go | | | | | through premarket FDA | | | | | review. This test is | | | | | used for clinical | | | | | purposes. It should not | | | | | be regarded as | | | | | investigational or for | | | | | research. This | | | | | laboratory is certified | | | | | under the Clinical | | | | | Laboratory Improvement | | | | | Amendments (CLIA) as | | | | | qualified to perform | | | | | high complexity clinical | | | | | laboratory testing. | | | + + + + + + + | Specimen | + + | Tissue - Kidney | + + + + + + + | Performing | Address | City/State/Zipcode | Phone Number | | Organization | | | | + + + + + | [facility] | [address] | [place] [address] | | | PATHOLOGY | [address] | | | + + + + + PRODUCT - RED CELLS LEUKOREDUCED (09/13/2017 11:39 AM)Only the most recent of 2 results lita mc the time period is included. + + + + + | Component | Value | Ref Range | Performed At | + + + + + | PRODUCT DESCRIPTION | -1 RED BLOOD CELL | | [facility] | | | ADENINE-SALINE ADDED | | SERVICES, | | | LEUKOCYTE | | TRANSFUSION | | | | | MEDICINE | + + + + + | PRODUCT UNIT # | [id number] | | [facility] | | | | | SERVICES, | | | | | TRANSFUSION | | | | | MEDICINE | + + + + + | UNIT ABO | A | | [facility] | | | | | SERVICES, | | | | | TRANSFUSION | | | | | MEDICINE | + + + + + | UNIT RH | POS | | [facility] | | | | | SERVICES, | | | | | TRANSFUSION | | | | | MEDICINE | + + + + + | STATUS OF UNIT | Returned to Blood Bank | | [facility] | | | | | SERVICES, | | | | | TRANSFUSION | | | | | MEDICINE | + + + + + | EXPIRATION DATE | [id number] | | [facility] | | | | | SERVICES, | | | | | TRANSFUSION | | | | | MEDICINE | + + + + + | BLOOD TYPE BARCODE | [phone] | | [facility] | | | | | SERVICES, | | | | | TRANSFUSION | | | | | MEDICINE | + + + + + | BLOOD PRODUCT CODE | [id number] | | [facility] | | | | | SERVICES, | | | | | TRANSFUSION | | | | | MEDICINE | + + + + + + + + + + | Performing | Address | City/State/Zipcode | Phone Number | | Organization | | | | + + + + + | [facility] | [address] | [place] [address] | | | TAMIKA | [address] | | | | TRANSFUSION MEDICINE | | | | + + + + + ANE CVL (09/13/2017 9:52 AM) + + [...] | ultrasound. | | + + + CONFIRMATORY ABO/RH (09/13/2017 6:00 AM) + + + + + | [...] | + + + + + | [facility] | [address] | [place] [address] | | | SERVICES, | [address] | | | | TRANSFUSION MEDICINE | | | | + + + + + INTRAPROCEDURE IMAGING (09/13/2017 5:34 AM) + + + | Narrative | Performed At | + + + | See admission or procedure notes for details of any intraprocedure | | | images obtained. | | + + + CARDIOLOGY (09/13/2017) + + + | Narrative | Performed At | + + + | | | + + + 12 LEAD ECG (09/01/2017 11:27 AM) + + + + + | Component | Value | Ref Range | Performed At | + + + + + | VENTRICULAR RATE | 80 | bpm | [facility] | | | | | CARDIOLOGY | + + + + + | ATRIAL RATE | 80 | ms | [facility] | | | | | CARDIOLOGY | + + + + + | P-R INTERVAL | 166 | ms | [facility] | | | | | CARDIOLOGY | + + + + + | P AXIS | 70 | deg | [facility] | | | | | CARDIOLOGY | + + + + + | QRS DURATION | 91 | ms | [facility] | | | | | CARDIOLOGY | + + + + + | QT | 371 | ms | [facility] | | | | | CARDIOLOGY | + + + + + | QTCB | 429 | ms | [facility] | | | | | CARDIOLOGY | + + + + + | R AXIS | 6 | deg | [facility] | | | | | CARDIOLOGY | + + + + + | T AXIS | 60 | deg | [facility] | | | | | CARDIOLOGY | + + + + + | ECG IMPRESSION | Sinus rhythm- NORMAL ECG | | [facility] | | | - | | CARDIOLOGY | + + + + + | ECG IMPRESSION | Electronically signed | | [facility] | | | by: DALI MCCALL | | CARDIOLOGY | | | 09-01-2017 20:29:12 | | | + + + + + + + + | Narrative | Performed At | + + + | | | + + + + + + + + | Performing | Address | City/State/Zipcode | Phone Number | | Organization | | | | + + + + + | [facility] | [address] | [place], [place] | | | CARDIOLOGY | [address] | [id number] | | + + + + + CULTURE, URINE [facility] (09/01/2017 11:13 AM) + + + + + | Component | Value | Ref Range | Performed At | + + + + + | URINE CULTURE [facility] | Insignificant growth | | [facility] | | | (<10,000 cfu/mL) | | SERVICES, CORE | + + + + + + + | Specimen | + + | Urine | + + + + + + + | Performing | Address | City/State/Zipcode | Phone Number | | Organization | | | | + + + + + | [facility] | [address] | [place] [address] | | | SERVICES, CORE | [address] | | | + + + + + COMPLETE METABOLIC SET (NA,K,CL,CO2,BUN,CREAT,GLUC,CA,AST,ALT,BILI TOTAL,ALK PHOS,ALB,PROT TOTAL) (09/01/2017 11:13 AM) + +---------+ + + | Component | Value | Ref Range | Performed At | + +---------+ + + | GLUCOSE, PLASMA | 99 | 70 - 99 mg/dL | [facility] | | (LAB) | | | SERVICES, CORE | + +---------+ + + | BUN, PLASMA (LAB) | 16 | 6 - 20 mg/dL | [facility] | | | | | SERVICES, CORE | + +---------+ + + | CREATININE PLASMA | 1.30 | 0.70 - 1.30 mg/dL | [facility] | | (LAB) | | | SERVICES, CORE | + +---------+ + + | EGFR - | >60 | >60 mL/min | [facility] | | BAHRAINI | | | SERVICES, CORE | + +---------+ + + | EGFR NON | 55 (L) | >60 mL/min | [facility] | | -BAHRAINI | | | TAMIKA, CORE | + +---------+ + + | SODIUM, PLASMA (LAB) | 135 (L) | 136 - 145 mmol/L | [facility] | | | | | SERVICES, CORE | + +---------+ + + | POTASSIUM, PLASMA | 4.6 | 3.4 - 5.0 mmol/L | [facility] | | (LAB) | | | SERVICES, CORE | + +---------+ + + | CHLORIDE, PLASMA | 103 | 97 - 108 mmol/L | [facility] | | (LAB) | | | SERVICES, CORE | + +---------+ + + | TOTAL CO2, PLASMA | 23 | 21 - 32 mmol/L | [facility] | | (LAB) | | | SERVICES, CORE | + +---------+ + + | CALCIUM, PLASMA | 9.1 | 8.6 - 10.2 mg/dL | [facility] | | (LAB) | | | SERVICES, CORE | + +---------+ + + | CALCIUM(ALB | 9.4 | 8.6 - 10.2 mg/dL | [facility] | | CORRECTED) | | | SERVICES, CORE | + +---------+ + + | BILIRUBIN TOTAL | 0.2 (L) | 0.3 - 1.2 mg/dL | [facility] | | | | | SERVICES, CORE | + +---------+ + + | TOTAL PROTEIN, | 8.7 (H) | 6.4 - 8.2 g/dL | [facility] | | PLASMA (LAB) | | | SERVICES, CORE | + +---------+ + + | ALBUMIN, PLASMA | 3.6 | 3.5 - 4.7 g/dL | [facility] | | (LAB) | | | SERVICES, CORE | + +---------+ + + | ALK PHOS | 150 (H) | 56 - 119 U/L | [facility] | | | | | SERVICES, CORE | + +---------+ + + | AST(SGOT) | 10 | <=41 U/L | [facility] | | | | | SERVICES, CORE | + +---------+ + + | ALT (SGPT) | 14 | <=60 U/L | [facility] | | | | | SERVICES, CORE | + +---------+ + + | ANION GAP | 9 | 4 - 11 mmol/L | [facility] | | | | | SERVICES, CORE | + +---------+ + + | ANION GAP(ALB | 10 | 4 - 11 mmol/L | [facility] | | CORRECTED) | | | SERVICES, CORE | + +---------+ + + | POTASSIUM CMNT | No Hemo | | [facility] | | | | | SERVICES, CORE | + +---------+ + + | BILI T CMNT | No Hemo | | [facility] | | | | | SERVICES, CORE | + +---------+ + + | AST CMNT | No Hemo | | [facility] | | | | | SERVICES, CORE | + +---------+ + + + + | Specimen | + + | Blood - Blood | + + + + + | Narrative | Performed At | + + + | GFR is estimated using the MDRD equation recommended by the | [facility] | | National Kidney Disease Education Program. Estimated GFR | LABORATORY | | Interpretive Information: <60 mL/min/1.73 sq | SERVICES, CORE | | m Chronic Kidney Disease <15 mL/min/1.73 | | | sq m Kidney Failure Estimated GFR greater | | | that 60 mL/min/1.73 sq m is of limited clinical value. The MDRD | | | equation is not valid in the following situations: - Patients under | | | 18 years of age - Severe malnutrition or obesity - Vegetarian diet | | | - Rapidly changing kidney function - Amputees, paraplegics, or other | | | muscle-wasting diseses | | + + + + + + + + | Performing | Address | City/State/Zipcode | Phone Number | | Organization | | | | + + + + + | [facility] | [address] | [place] [address] | | | TAMIKA, XENIA | [address] | | | + + + + + FRANCI ALCARAZ ONLY (09/01/2017 11:13 AM) + + + + + | Component | Value | Ref Range | Performed At | + + + + + | COLOR(UR) | Yellow | | [facility] | | | | | TAMIKA CORE | + + + + + | APPEARANCE | Sl.Cloudy | | [facility] | | | | | TAMIKA, CORE | + + + + + | GLUCOSE(UR) | >=500.0 (A) | Negative, 50.0 | [facility] | | | | mg/dL | SERVICES, CORE | + + + + + | PROTEIN(LAB) | 30.0 | Negative, 30.0 | [facility] | | | | mg/dL | SERVICES, CORE | + + + + + | BILIRUBIN | Negative | Negative | [facility] | | | | | SERVICES, CORE | + + + + + | UROBILINOGEN | <2.0 | <2.0 mg/dL | [facility] | | | | | SERVICES, CORE | + + + + + | PH(UR) | 5.0 | 5.0 - 8.0 | [facility] | | | | | SERVICES, CORE | + + + + + | BLOOD | Large (A) | Negative | [facility] | | | | | SERVICES, CORE | + + + + + | KETONES | Negative | Negative mg/dL | [facility] | | | | | SERVICES, CORE | + + + + + | NITRITES | Negative | Negative | [facility] | | | | | SERVICES, CORE | + + + + + | LEUKOCYTE ESTERASE | Negative | Negative | [facility] | | | | | SERVICES, CORE | + + + + + | SPECIFIC GRAVITY | 1.012Comment: Specific | 1.005 - 1.030 | [facility] | | | Vernon performed by | | XENIA LUNDBERG | | | refractometry | | | + + + + + + + | Specimen | + + | Urine | + + + + + + + | Performing | Address | City/State/Zipcode | Phone Number | | Organization | | | | + + + + + | [facility] | [address] | [place] [address] | | | XENIA LUNDBERG | [address] | | | + + + + + URINE, MICROSCOPIC EXAM (09/01/2017 11:13 AM) + +---------+ + + | Component | Value | Ref Range | Performed At | + +---------+ + + | RED CELLS | 17 (H) | 0 - 3 /hpf | [facility] | | | | | SERVICES, CORE | + +---------+ + + | WHITE CELLS | 5 | 0 - 5 /hpf | [facility] | | | | | SERVICES, CORE | + +---------+ + + | BACTERIA | Few (A) | None /hpf | [facility] | | | | | SERVICES, CORE | + +---------+ + + | YEAST (LAB) | None | None /hpf | [facility] | | | | | SERVICES, CORE | + +---------+ + + | SQUAMOUS EPITHELIAL | Few (A) | None /hpf | [facility] | | | | | SERVICES, CORE | + +---------+ + + | MUCOUS | Few (A) | None /hpf | [facility] | | | | | SERVICES, CORE | + +---------+ + + | TRICHOMONAS | None | None /hpf | [facility] | | | | | SERVICES, CORE | + +---------+ + + | NON-SQUAMOUS EPITH | None | None /hpf | [facility] | | | | | SERVICES, CORE | + +---------+ + + | HYALINE CASTS | 0 | 0 - 2 /lpf | [facility] | | | | | SERVICES, CORE | + +---------+ + + | GRANULAR CASTS | 0 | 0 - 2 /lpf | [facility] | | | | | SERVICES, CORE | + +---------+ + + | CELLULAR CASTS | 0 | <=0 /lpf | [facility] | | | | | SERVICES, CORE | + +---------+ + + | TRIPLE P04 CRYSTALS | None | None /hpf | [facility] | | | | | SERVICES, CORE | + +---------+ + + | CALCIUM OXALATE JEFFERSON | None | None /hpf | [facility] | | | | | SERVICES, CORE | + +---------+ + + | URIC ACID CRYSTALS | None | None /hpf | [facility] | | | | | SERVICES, CORE | + +---------+ + + | AMORPHOUS CRYSTALS | None | None /hpf | [facility] | | | | | SERVICES, CORE | + +---------+ + + + + | Specimen | + + | Urine | + + + + + + + | Performing | Address | City/State/Zipcode | Phone Number | | Organization | | | | + + + + + | [facility] | [address] | [place] [address] | | | SERVICES, CORE | [address] | | | + + + + + URINE SCREEN FOR CULTURE (09/01/2017 11:13 AM) + + + + + | Component | Value | Ref Range | Performed At | + + + + + | URINE SCREEN FOR | Sent for Culture (A) | Negative | [facility] | | CULTURE | | | SERVICES, CORE | + + + + + + + | Specimen | + + | Urine | + + + + + | Narrative | Performed At | + + + | Culture Screen Positive, specimen sent for culture. | [facility] | | | LABOR[facility] | | | SERVICES, CORE | + + + + + + + + | Performing | Address | City/State/Zipcode | Phone Number | | Organization | | | | + + + + + | [facility] | [address] | [place] [address] | | | SERVICES, CORE | [address] | | | + + + + + HEMOGLOBIN A1C, BLOOD (09/01/2017 11:13 AM) + + + + + | Component | Value | Ref Range | Performed At | + + + + + | HEMOGLOBIN A1C | 6.2 (H)Comment: Hgb A1C | <5.7 % | [facility] | | | Interpretive | | SERVICES, | | | Information: | | SPECIAL IMM + | | | <5.7% - | | [facility] | | | Normal 5.7-6.4% - | | | | | Consistent with | | | | | pre-diabetes | | | | | >6.4% - Consistent with | | | | | diabetes | | | + + + + + + + | Specimen | + + | Blood - Blood | + + + + + | Narrative | Performed At | + + + | Alternate forms of testing such as fructosamine should be | [facility] | | considered for monitoring emergency medical technician/driver glycemic control in patients with: | LABORATORY | | Increased red cell turnover, certain hemoglobinopathies (e.g., HbS, | SERVICES, | | HbE, HbC and thalassemia syndromes), anemias, blood loss, chronic | SPECIAL IMM + | | liver disease and hemochromatosis (artefactually low HbA1c); iron | [facility] | | deficiency anemia (artefactually high HbA1c due to enhanced glycation | | | of hemoglobin). | | + + + + + + + + | Performing | Address | City/State/Zipcode | Phone Number | | Organization | | | | + + + + + | [facility] | [address] [facility] | [place] [address] | | | SERVICES, SPECIAL | [address] | | | | IMM + [place] | | | | + + + + + CT ABDOMEN WWO IV CONTRAST (08/31/2017 4:59 [...] (H) | 0.7 - 1.3 mg/dL | [facility], | | | | | POINT OF [...] | [facility], POINT | [address] | [place] [address] | | | OF CARE TESTS | | | | + + + + + US KIDNEY & BLADDER (08/31/2017 3:43 PM) + + + | Narrative | Performed At | + + + | EXAM: US KIDNEY AND BLADDER. HISTORY: Renal mass and bladder | [facility] | | mass; eval bladder mass for blood flow (? Clot vs solid mass) | RADIOLOGY VOICE | | COMPARISON: Outside CT chest abdomen pelvis 08/19/2017 TECHNIQUE: | RECOGNITION 2 | | Ultrasound evaluation of the kidneys and bladder. FINDINGS: Right | | | kidney: 12.9 x 5.7 x 5.7 cm. No hydronephrosis. Large right | | | renal mass measuring 8.7 x 6.7 x 9.7 cm largely replacing the renal | | | parenchyma with associated caval thrombus; corresponding lesion seen | | | on outside CT. Left kidney: 12.6 x 5.3 x 4.7 cm. No | | | hydronephrosis. Left renal cyst is redemonstrated measuring up to 1 | | | cm. Bladder: Bladder measures 2.1 x 0.8 x 7.2 cm. Intramural | | | bladder lesion measuring 7.2 x 4.4 x 5.4 cm, also seen on prior CT | | | demonstrates no internal flow. IMPRESSION: 1. Large right | | | renal mass with associated caval thrombus is suspicious for renal cell | | | carcinoma. 2. Bladder mass without flow could be clot versus | | | hypovascular lesion. I have personally reviewed the images and, if | | | necessary, edited the report. I agree with the report as now | | | presented. Final signature: Diane Crowe MD 08/31/2017 5:18 PM | | | Preliminary: May Fleming MD Dictation initiated: | | | May Fleming MD 08/31/2017 4:18 PM | | + + + + + | Procedure Note | + + | Service Account, Radiant Res In Interface - 08/31/2017 5:20 PM PDT EXAM: US KIDNEY | | AND BLADDER. HISTORY: Renal mass and bladder mass; eval bladder mass for blood flow (? | | Clot vs solid mass) COMPARISON: Outside CT chest abdomen pelvis 08/19/2017 TECHNIQUE: | | Ultrasound evaluation of the kidneys and bladder. FINDINGS:Right kidney: 12.9 x 5.7 x | | 5.7 cm. No hydronephrosis. Large right renal mass measuring 8.7 x 6.7 x 9.7 cm largely | | replacing the renal parenchyma with associated caval thrombus; corresponding lesion | | seen on outside CT. Left kidney: 12.6 x 5.3 x 4.7 cm. No hydronephrosis.Left renal | | cyst is redemonstrated measuring up to 1 cm. Bladder: Bladder measures 2.1 x 0.8 x 7.2 | | cm. Intramural bladder lesion measuring 7.2 x 4.4 x 5.4 cm, also seen on prior CT | | demonstrates no internal flow. IMPRESSION: 1. Large right renal mass with associated | | caval thrombus is suspicious for renal cell carcinoma. 2. Bladder mass without flow | | could be clot versus hypovascular lesion. I have personally reviewed the images and, if | | necessary, edited the report. I agree with the report as now presented. Final | | signature: Diane Crowe MD 08/31/2017 5:18 PM Preliminary: May Fleming MD | | Dictation initiated: May Fleming MD 08/31/2017 4:18 PM | |Bladder: Bladder measures 2.1 x 0.8 x 7.2 cm. Intramural bladder lesion measuring 7.2 x 4.4 x 5.4 cm, also seen on prior CT demonstrates no internal flow. | | | |IMPRESSION: | | | |1. Large right renal mass with associated caval thrombus is suspicious for renal cell carci noma. | | | |2. Bladder mass without flow could be clot versus hypovascular lesion. | | | |I have personally reviewed the images and, if necessary, edited the report. I agree with th e report as now presented. | | | |Final signature: Diane Crowe MD 08/31/2017 5:18 PM | |Preliminary: May Fleming MD | |Dictation initiated: May Fleming MD 08/31/2017 4:18 PM | + + + +---------+ + + | Performing | Address | City/State/Zipcode | Phone Number | | Organization | | | | + +---------+ + + | [facility] | | | | | VOICE RECOGNITION 2 | | | | + +---------+ + + from Last 3 Months Insurance + +--------+ +------+ + + | Payer | Benefi | Subscriber | Type | Phone | Address | | | t Plan | ID | | | | | | / | | | | | | | Group | | | | | + +--------+ +------+ + + | BLUE CROSS BLUE | REGENC | xxxxxxxxxxx | PPO | [phone] | [address] [address] [place] | | SHIELD | E BCBS | [phone] | [phone] | [place], [place] | | | | | | | [address] | + +--------+ +------+ + + + +--------+ +--------+ + + | Guarantor Name | Accoun | Relation to | Date | Phone | Billing Address | | | t Type | Patient | of | | | | | | | | | | + +--------+ +--------+ + + | ELICEO NGUYEN | Person | Self [birth year] | Home: | [address] | | | al/Dannie | | 1946 | [phone] [place] | | | christos | | | [phone] | + +--------+ +--------+ + +
--- OUTSIDE RECORDS SUMMARY | ~2017-11-22 | XMS | Encounter Summary ---
Demographics + + + | Address | [address] | | | [place] [address] | + + + | Home Phone | | + + + | Preferred Language | Unknown | + + + | Marital Status | | + + + | Restorationist Affiliation | LDS | + + + [...] + | MILLY NGUYEN | ECON | [address] | | | | | [place], | | | | | [place] [address] | | + + + + + | Holly Burrell | ECON | Unknown | | + + + + + Care Team Providers + +------+ + | Care Rural Mail Carrier Name | Role | Phone | + +------+ + | Jeremy Adrian MD | PCP | | + +------+ + Encounter Details +--------+ + + + + | Date | Type | Department | Care Team | Description | +--------+ + + + + | 09/13/ | Document-Sc | UNKNOWN DEPARTMENT | Other, Faculty | | | 2018 | anned | [address] [facility] | [phone] | | | | | [facility] | | | | | | [place], [place] | | | | | | [address] | | | +--------+ + + + [...] + + | 12/20/ | Diagnostic | Physicist Solid State | Nils Woody, | | | 2018 | Visit | | Keyla [facility] | | | | | | [address] | | | | | | [place], [place] | | | | | | [address] | | | | | | | | +--------+ + + + + as of this encounter Visit Diagnoses Not on filein this encounter"
--- OUTSIDE RECORDS SUMMARY | ~2017-11-22 | XMS | Encounter Summary ---
Demographics + + + | Address | [address] | | | [place] [address] | + + + | Home Phone | | + + + | Preferred Language | Unknown | + + + | Marital Status | | + + + | Rastafarian Affiliation | LDS | + + + | Race | White | + + + | Ethnic Group | Not or | + + + Author + + + | Author | [facility] | + + + | Organization | [facility] | + + + | Address | Unknown | + + + | Phone | Unavailable | + + + Support + + + + + | Name | Relationship | Address | Phone | + + + + + | MILLY NGUYEN | ECON | [address] | | | | | [place], | | | | | [place] [address] | | + + + + + | Holly Burrell | ECON | Unknown | | + + + + + Care Team Providers + +------+ + | Care Facing Baster Jumpbasting Name | Role | Phone | + [...] Therapy | Dysphagia, | Mario R, | [facility] [address] | | | | | unspecified | [address] | [address] | | | | | type | [address] | Mail Code: | | | | | Procedures | [address] | [facility] | | | | | SPEECH | [place], [place] | for Health | | | | | THERAPY | [address] | and Healing, | | | | | REFERRAL | Phone: | 15th Floor | | | | | | [phone] | [place], [place] | | | | | | Fax: | [address] | | | | | | [phone] | Phone: | | | | | | | [phone] | | | | | | | Fax: | | | | | | | [phone] | + +--------+ + + + + Encounter Details +--------+ + + + + | Date | Type | Department | Care Team | Description | +--------+ + + + + | 10/21/ | Diagnostic | Otolaryngology | Rm, | | | 2018 | Visit | Speech Therapy | AARON Ramires [address] | | | | | Services at [facility] | [address] | | | | | [address] | [address] [place], [place] | | | | | [facility] | [address] | | | | | Mailcode: PV01 | | | | | | Physician's Mick | | | | | | [place], [place] | | | | | | [address] | | | | | | [phone] | | | +--------+ + + + [...] may be different from the original. Clinic: [facility] Referring Physician: Mario Guardado MD [address] [place] [address] Authorizing provider: Cristy Delarosa MD PCP: Jeremy [...] history of DM2 (diabetes mellitus, type 2) ([facility]); Esophageal strictu re; GERD (gastroesophageal reflux disease); Hyperlipidemia; Hypertension; Post-polio syndrom e; and SNHL (sensorineural hearing loss). Pt has a past surgical history that includes inner ear surgery (1975); tonsillectomy and a denoidectomy; appendectomy; and cochlear implant (Bilateral, 2016). DIETARY STATUS: Current diet: The patient is currently taking ground and pureed foods and any liquids by [facility]. Feeding tube status: The patient does not [...] SOCIAL HISTORY: He is and lives in [place], [place]. COMMUNICATION, SPEECH & RESPIRATORY STATUS: The [...] he wants to continue to drive to [facility] for appointment of if he wants to follow up with his previous ENT locally and continue swallow treatment/work-up there. I encouraged him to do what he is most comfortable with but emphasized the importance of follow-up with an RELAY MECHANIC, particularly because he feels his swallow has [...] you for this consult. Keyla Abdalla M.S. CF-RELAY MECHANIC Speech Pathology Clinical Fellow [facility] Otolaryngology, Head and Neck Surgery [facility] Alvin in this encounter Plan of Treatment +--------+ + + + + | Date | Type | Specialty | Care Team | Description | +--------+ + + + + | 12/20/ Diagnostic | Body Shop Floorperson | Nils Woody, | | | 2018 | Visit | | GRETCHEN Ramires [address] | | | | | [address] [place] | | | | | | [place], [place] | | | | | | [address] | | | | | | | | +--------+ + + + + as of this encounter Procedures + +--------+ + + + | Procedure Name | Priori | Date/Time | Associated Diagnosis | Comments | | | ty | | | | + +--------+ + + + | TX EVAL,ORAL & | Routin | 10/21/2017 | [...]
--- OUTSIDE RECORDS SUMMARY | ~2017-11-22 | XMS | Encounter Summary ---
Demographics + + + | Address | [address] | | | [place] [address] | + + + | Home Phone | | + + + | Preferred Language | Unknown | + + + | Marital Status | | + + + | Druze Affiliation | Unknown | + + + | Race | Unknown | + + + | Ethnic Group | Unknown | + + + Author + + + | Author | [facility] | + + + | Organization | [facility] | + + + | Address | Unknown | + + + | Phone | Unavailable | + + + Support + + +---------+ + | Name | Relationship | Address | Phone | + + +---------+ + | Yuki Nguyen | ECON | Unknown | | + + +---------+ + Care Team Providers + +------+ + | Care Chief Librarian Music Department Name | Role | Phone | + +------+ + | Jeremy Adrian MD | PCP | | + +------+ + Reason for Visit +--------+ + | Reason | Comments | +--------+ + | Other | C/N, [facility] | +--------+ + Encounter Details +--------+ + + + + | Date | Type | Department | Care Team | Description | +--------+ + + + + | 10/06/ | Documentati | [facility] | Gabriella, | Other (C/N, LJossue | | 2018 | on Only | Hematology and | Stephanie Dubon MD | [facility], | | | | Oncology [address] | [place] ) | | | | [address] | [place] | | | | | [place] | [address] | | | | | [address] | | | | | | [phone] | | | +--------+ + + + [...] [place] | | | | | | [address] | | | | | | | | +--------+---------+ + + + as of this encounter Visit Diagnoses Not on filein this encounter"
--- OUTSIDE RECORDS SUMMARY | ~2017-11-22 | XMS | Encounter Summary ---
Demographics + + + | Address | [address] | | | [place] [address] | + + + | Home Phone | | + + + | Preferred Language | Unknown | + + + | Marital Status | | + + + | Spiritism Affiliation | LDS | + + + | Race | White | + + + | Ethnic Group | Not or | + + + Author + + + | Author | [facility] | + + + | Organization | [facility] | + + + | Address | Unknown | + + + | Phone | Unavailable | + + + Support + + + + + | Name | Relationship | Address | Phone | + + + + + | MILLY NGUYEN | ECON | [address] | | | | | [place], | | | | | [place] [address] | | + + + + + | Holly Otoole ECON | Unknown | | + + + + + Care Team Providers + +------+ + | Care Pharmaceutical Botanist Name | Role | Phone | + +------+ + | Jeremy Adrian MD | PCP | | + +------+ + Encounter Details +--------+ + + + + | Date | Type | Department | Care Team | Description | +--------+ + + + + | 10/07/ | Abstract | Urology at [facility] | Cristy Rubin MD | | | 2017 | | [address] | [address] | | | | | Mail Code: CH10U | [place], [place] | | | | | [facility] | [address] | | | | | and Filiberto | [phone] | | | | | Floor [place], [place] | | | | | | [address] | | | | | | [phone] | | | +--------+ + + + [...] + + | 12/20/ | Diagnostic | Conductor/Engineer | Nils Woody, | | | 2017 | Visit | | GRETCHEN Ramires [address] | | | | | [address] | | | | | | [place] | | | | | | [address] | | | | | | | | +--------+ + + + + as of this encounter Visit Diagnoses Not on filein this encounter"
--- OUTSIDE RECORDS SUMMARY | ~2017-11-22 | XMS | Encounter Summary ---
Demographics + + + | Address | [address] | | | [place] [address] | + + + | Home Phone | | + + + | Preferred Language | Unknown | + + + | Marital Status | | + + + | Temple Affiliation | LDS | + + + | Race | White | + + + | Ethnic Group | Not or | + + + Author + + + | Author | [facility] | + + + | Organization | [facility] | + + + | Address | Unknown | + + + | Phone | Unavailable | + + + Support + + + + + | Name | Relationship | Address | Phone | + + + + + | MILLY NGUYEN | ECON | [address] | | | | | [place], | | | | | [place] [address] | | + + + + + | Holly Burrell | ECON | Unknown | | + + + + + Care Team Providers + +------+ + | Care Control Officer Name | Role | Phone | + +------+ + | Jeremy Adrian MD | PCP | | + +------+ + Reason for Visit Intake Referral (Routine) +--------+--------+ + + + + | Status | Reason | Specialty | Diagnoses / | Referred By | Referred To | | | | | Procedures | Contact | Contact | +--------+--------+ + + + + | Closed | | Urology | Diagnoses | Hitzman, | Uro | | | | | Malignant | Jeremy Maynard, | Oncology [facility] | | | | | neoplasm of | MD | [address] | | | | | right | [place] | [address] | | | | | kidney, | FAMILY | Mail Code: | | | | | except renal | MEDICINE | [facility] | | | | | pelvis | [address] | for Health | | | | | | [address] | and Healing, | | | | | | [place], | 10th Floor | | | | | | [place] [address] | [place], [place] | | | | | | Phone: | [address] | | | | | | [phone] | Phone: | | | | | | Fax: | [phone] | | | | | | [phone] | Fax: | | | | | | | [phone] | +--------+--------+ + + + + Encounter Details +--------+---------+ + + + | Date | Type | Department | Care Team | Description | +--------+---------+ + + + | 09/01/ | Office | Urology at [facility] | Rn, Uro [address] | Renal cell carcinoma | | 2018 | Visit | [address] | [address] | of right kidney | | | | Mail Code: CH10U | Road [facility] [place] | (HCC) (Primary Dx) | | | | [facility] | [address] | | | | | and Healing, | | | | | | Floor [place], [place] | | | | | | [address] | | | | | | [phone] | | | +--------+---------+ + + + Social History + + [...] + + + as of this encounter Instructions Patient Instructions - Madi Fleming RN - 09/01/2017 10:30 AM PDTPresurgical Preparation for Urologic Surgery: This is accomplished by adhering to: 1) a limited diet 2) drinking a special laxative 3) Hibiclen's body wash 1. Diet Adhere to a clear liquid diet all day the day prior to surgery. Clear liquids are any liqu id you can see through and which has no pulp in it. Examples of this diet are: Water, Valentina beatrice, Lemon-[place] soft drinks, Apple juice, Tea or c offee without creamer, Gatorade/sports drinks, Jell-O, Broth soups, Popsicle. 2. Laxative: These laxatives are liquids and are taken by mouth. They will stimulate bowel movements. Magnesium Citrate. Drink 1 bottle(s) of magnesium citrate at 12:00pm (or, the early aftern oon) the day before your surgery. Stay close to the bathroom. This 10oz bottle is purchased over the counter. 3. Hibiclen's (This soap will be provided to you by the pre-surgery medicine clinic pract tori before surgery) The night prior to surgery please wash your body from the neck down with 1/2 of the Hibicle n's body wash soap. The morning of surgery please wash your body from the neck down with the rest of the Hibicl en's body wash soap. IMPORTANT: Nothing to eat or drink after midnight prior to your surgery (this includes water!). If you take blood pressure medications or heart medications please check with your Premedic ine Clinic (P[facility]) provider at [phone] to see if you need to take or discontinue these me dications prior to surgery. If you are taking flaxseed, vitamin E, fish oil, aspirin, NSAIDS (e.g., Motrin, Aleve, Napr osyn, ibuprofen) or other blood thinning medications that may cause bleeding problems you wi ll need to stop such medications 7 days before your surgery. PRIOR TO STOPPING THIS MEDICATI ON IT IS IMPORTANT TO CONSULT WITH THE Prescribing provider WHO PRESCRIBED IT FOR YOU. If you are taking warfarin (Coumadin), clopidogrel (Plavix), or ticagrelor (Brilinta) this will need to be stopped or "bridged" by your prescribing provider or anticoagulation clinic 5 days BEFORE SURGERY. If you are taking rivaroxaban (Xarelto), apixaban (Eliquis), or dabigatran etexilate (Anisa xa), please stop taking these medications 48 hours prior to the scheduled procedure. PRIOR T O STOPPING THIS MEDICATION IT IS IMPORTANT TO CONSULT WITH THE Prescribing provider WHO PRES CRIBED IT FOR YOU. If you cannot complete your bowel preparation as directed above, please contact the urology office at . After hours and on weekends, please call and ask to speak to the Urology Resident who is typewriter ribbon winder.in this encounter Progress Notes Madi Fleming RN - 09/01/2017 10:30 AM PDTNursing education note: I sat with Mr. Nguyen and his spouse / significant other and we reviewed the presurgical bowel preparation instructions. He states he is not currently taking aspirin or other blood thinners. Patient and his spouse / significant other verbalized agreement and understanding of thes e instructions and had no questions. I spent 7 minutes with Mr. Nguyen and is the provider present and available in clinic dur ing the entire visit. Contact information was provided should they have any concerns or clarification questions. in this encounter Plan of Treatment +--------+ + + + + | Date | Type | Specialty | Care Team | Description | +--------+ + + + + | 12/20/ | Diagnostic | Insurance Representative | Nils Woody, | | | 2017 | Visit | | GRETCHEN Ramires [address] | | | | | [address] [facility] | | | | | | [place], [place] | | | | | | [address] | | | | | | | | +--------+ + + + + as of this encounter Visit Diagnoses + + | Diagnosis | + + | Renal cell carcinoma of right kidney (HCC) - Primary | + +
--- OUTSIDE RECORDS SUMMARY | ~2017-11-22 | XMS | Encounter Summary ---
Demographics + + + | Address | [address] | | | [place] [address] | + + + | Home Phone | | + + + | Preferred Language | Unknown | + + + | Marital Status | | + + + | Amish Affiliation | LDS | + + + | Race | White | + + + | Ethnic Group | Not or | + + + Author + + + | Author | [facility] | + + + | Organization | [facility] | + + + | Address | Unknown | + + + | Phone | Unavailable | + + + Support + + + + + | Name | Relationship | Address | Phone | + + + + + | MILLY NGUYEN | ECON | [address] | | | | | [place], | | | | | [place] [address] | | + + + + + | Holly Burrell | ECON | Unknown | | + + + + + Care Team Providers + +------+ + | Care Job Recruiter Name | Role | Phone | + +------+ + | Jeremy Adrian MD | PCP | | + +------+ + Encounter Details +--------+------+ + + + | Date | Type | Department | Care Team | Description | +--------+------+ + + + | 10/06/ | Lab | Laboratory at [facility] | | Right renal mass | | 2018 | | 3rd Floor [address] | | | | | | [address] [place], | | | | | | [place] [address] | | | | | | [phone] | | | +--------+------+ + + + [...] + + | 12/20/ | Diagnostic | Ton Container Filler | Nils Woody, | | | 2018 | Visit | | Keyla [facility] | | | | | | [address] | | | | | | [place], [place] | | | | | | [address] | | | | | | | [...] [facility] | [address] | [place] [address] | | | SERVICES, | [address] [...] | + + + + + | [facility] | [address] | [place] [address] | | | SERVICES, | [address] | | | | TRANSFUSION MEDICINE | | | | + + + + + [facility] - COMPLETE METABOLIC SET (10/06/2017 7:32 AM) [...] | + + + + + | [facility] | [address] | [place] [address] | | | SERVICES, [place] [facility] | | | | | HEALTH [...] 10.7 | 9.7 - 12.3 fL | [facility] | | | | | SERVICES, [...] | + + + + + | [facility] | [address] | [place] [address] | | | SERVICES, [facility] FOR | | | | | HEALTH + HEALING | | | | + + + + + in this encounter Visit Diagnoses + + | Diagnosis | + + | Right renal mass | + + | Unspecified disorder of kidney and ureter | + +"
--- OUTSIDE RECORDS SUMMARY | ~2017-11-22 | XMS | Encounter Summary ---
Demographics + + + | Address | [address] | | | [place] [address] | + + + | Home Phone | | + + + | Preferred Language | Unknown | + + + | Marital Status | | + + + | Yarsani Affiliation | LDS | + + + | Race | White | + + + | Ethnic Group | Not or | + + + Author + + + | Author | [facility] | + + + | Organization | [facility] | + + + | Address | Unknown | + + + | Phone | Unavailable | + + + Support + + + + + | Name | Relationship | Address | Phone | + + + + + | MILLY NGUYEN | ECON | [address] | | | | | [place], | | | | | [place] [address] | | + + + + + | Holly Burrell | ECON | Unknown | | + + + + + Care Team Providers + +------+ + | Care Salsa Dance Instructor Name | Role | Phone | + +------+ + | Jeremy Adrian MD | PCP | | + +------+ + Encounter Details +--------+------+ + + + | Date | Type | Department | Care Team | Description | +--------+------+ + + + | 10/06/ | Lab | Laboratory at [facility] | | Right renal mass | | 2018 | | 3rd Floor [address] | | | | | | [address] [place], | | | | | | [place] [address] | | | | | | [phone] | | | +--------+------+ + + + [...] + + | 12/20/ | Diagnostic | Bungy Jump Master | Nils Woody, | | | 2018 | Visit | | Keyla [facility] [address] | | | | | | [address] | | | | | | [place], [place] | | | | | | [address] | | | | | | | [...] [facility] | [address] | [place] [address] | | | SERVICES, | [address] [...] | + + + + + | [facility] | [address] | [place] [address] | | | SERVICES, | [address] | | | | TRANSFUSION MEDICINE | | | | + + + + + [facility] - COMPLETE METABOLIC SET (10/06/2017 7:32 AM) [...] | + + + + + | [facility] | [address] | [place] [address] | | | SERVICES, [place] [facility] | | | | | HEALTH [...] 10.7 | 9.7 - 12.3 fL | [facility] | | | | | SERVICES, [...] | + + + + + | [facility] | [address] | [place] [address] | | | SERVICES, CENTER FOR | | | | | HEALTH + HEALING | | | | + + + + + in this encounter Visit Diagnoses + + | Diagnosis | + + | Right renal mass | + + | Unspecified disorder of kidney and ureter | + +"
--- OUTSIDE RECORDS SUMMARY | ~2017-11-22 | XMS | Encounter Summary ---
Demographics + + + | Address | [address] | | | [place] [address] | + + + | Home Phone [...] + + + | Author | [facility] | + + + | Organization | [facility] | + + + | Address | Unknown | + + + | Phone | Unavailable | + + + Support + + + + + | Name | Relationship | Address | Phone | + + + + + | MILLY NGUYEN | ECON | [address] | | | | | [place], | | | | | [place] [address] | | + + + + + | Holly Burrell | ECON | Unknown | | + + + + + Care Team Providers + +------+ + | Care Briquetter Operator Name | Role | Phone | + +------+ + | Jeremy Adrian MD | PCP | | + +------+ + Reason for Referral Consultation (Routine) + +--------+ + + + + | Status | Reason | Specialty | Diagnoses / | Referred By | Referred To | | | | | Procedures | Contact | Contact | + +--------+ + + + + | Referred | | Otolaryngolog | Diagnoses | [place], | Ent | | | | y | Dysphagia, | Mario R, | Laryngology | | | | | unspecified | [address] | [facility] [address] | | | | | type | [address] | [address] | | | | | Procedures | [address] | Mail Code: | | | | | CONSULT TO | [place], [place] | [address] | | | | | ENT GENERAL | [address] | for Health | | | | | | Phone: | and Healing, | | | | | | [phone] | 15th Floor | | | | | | Fax: | [place], [place] | | | | | | [phone] | [address] | | | | | | | Phone: | | | | | | | [phone] | | | | | | | Fax: | | | | | | | [phone] | + +--------+ + + + + Speech Therapy (Routine) + +--------+ + + [...] Therapy | Dysphagia, | Mario R, | [facility] [address] | | | | | unspecified | [address] | [address] | | | | | type | [address] | Mail Code: | | | | | Procedures | [address] | [facility] | | | | | SPEECH | [place], [place] | for Health | | | | | THERAPY | [address] | and Healing, | | | | | REFERRAL | Phone: | 15th Floor | | | | | | [phone] | [place], [place] | | | | | | Fax: | [address] | | | | | | [phone] | Phone: | | | | | | | [phone] | | | | | | | Fax: | | | | | | | [phone] | + +--------+ + + + + Reason for Visit AUTH/CERT +--------+--------+ + [...] + + | 09/13/ | Hospital | [facility] [address] | Cristy Rubin MD | | | 2018 - | Encounter | [address] | | | | | | [id number] [facility] | | | | 09/17/ | | [facility], | | | | 2018 | | [place] [address] | | | | | | [phone] | | | +--------+ + + + [...] + + + | Blood Pressure | 146/75 | 09/17/2017 8:15 AM PDT | + + + + | Pulse | 87 | 09/17/2017 8:15 AM PDT | + + + + | Temperature | 36.9 C (98.4 F) | 09/17/2017 8:15 AM PDT | + + + + | Respiratory Rate | 18 | 09/16/2017 10:45 PM PDT | + + + + | Oxygen Saturation | 98% | 09/17/2017 8:15 AM PDT | + + + + | Inhaled Oxygen | - | - | | Concentration | | | + + + + | Weight | 74.7 kg (164 lb 10.9 | 09/14/2017 11:21 PM PDT | | | oz) | | + + + + | Height | 170.2 cm (5' 7.01") | 09/13/2017 5:44 AM PDT | + + + + | Body Mass Index | 25.79 | 09/14/2017 11:21 PM PDT | + + + + in this encounter Functional Status + + + [...] + + + as of this encounter Discharge Summaries Mario Guardado MD - 09/17/2017 8:56 AM PDTFormatting of this note may be different fr om the original. [facility] Inpatient Discharge Summary Mario Guardado MD Attending Physician: Cristy Rubin MD Author: Mario Guardado MD Patient: Eliceo Nguyen Admission Date: 09/13/2017 Discharge Date: 09/17/2017 Attending Physician: Cristy Rubin MD Primary Care Physician: Jeremy Adrian MD Service: Urology Discharge Patient To: Home ----- Diagnoses Principal Final Diagnosis: 1. Right renal mass, IVC thrombus Additional Diagnoses: Procedures 1. Open right radical nephrectomy and caval thrombectomy 2. Excision of vena cava 3. Grafting of vena cava (by Dr. Young) 4. Retroperitoneal lymph node dissection (paracaval dissection) ----- Significant Findings, Treatment, and Complications, and Brief Hospital Course: Brief Hospital Course Eliceo Nguyen is a 71 y.o. male with above history who underwent the above procedure o n 09/13/2017. He tolerated the procedure well and recovered uneventfully on the guzmán post-ope ratively. he was discharged home on post-op day 4 at which time he was tolerating a regular diet, had good pain control on oral medications, and was ambulating without difficulty. ----- Diet Regular -1:1 supervision -upright 90 degrees for all oral intake -small bites/sips -Stop oral intake for concerns of aspiration (increased cough, decreased resp status, incre ased temp) ----- Activity Activity restrictions: - No lifting more than 10 pounds for 6 weeks. This will allow your wound to heal as well as possible. - Avoid bearing down or straining with bowel movements. - Narcotics can cause constipation, so you may take yovm-tsn-kzaqbxa stool softeners (Senok ot-S, Miralax, Colace) following the instructions on the box. Stop taking these pills if yo u are experiencing diarrhea. - No driving while on narcotics or with a urinary catheter in place. ----- Wound Care General Wound Care Keep your incision clean and dry. Do not submerge in tub or pool, but you can shower 3 days after surgery. Do not soak in bath or pool for 1 month. ----- ----- ----- ----- When to Call: JO-ANN burgess after hours and ask for the Surgery Physician A ssistant, Nurse or Surgery Resident rn peritoneal dialysis if you have any of the followin. Difficulty breathing or unusual shortness of breath 2. Excessive bleeding, drainage, redness and/or swelling at the operative site 3. Fevers (>101.5), chills, increased pain that is not relieved by pain medications 4. Persistent nausea or vomiting ----- Condition on Discharge Stable Urology Follow Up Please follow up with Cristy Rubin MD in the Urology Clinic. Future Appointments Provider Department Dept Phone Center 10/06/2017 9:30 AM Alison Garcia Urology at [facility] [phone] Urology 12/20/2017 8:30 AM Keyla Adam; AUDIO CASTELLON 4 Otolaryngology Audiology Services at [facility] [phone] [facility] Our schedulers will contact you to make an appointment. Your appointment will be on the 10t h floor of the [facility]. If you do not hear from our schedulers in [facility] call the clinic at . Please call the Urology Clinic at with any questions or concerns, or if you experience symptoms of fever; chills; severe nausea; vomiting; pain that does not go away wi th usual medication; drainage or bleeding from the incision site; sudden numbness, weakness, or difficulty speaking; or any other concerns. If after hours, call the Urology Resident o n call at . Future Appointments Provider Department Dept Phone Center 10/06/2017 9:30 AM Alison Garcia Urology at [facility] [phone] Urology 12/20/2017 8:30 AM Keyla Adam; AUDIO CASTELLON 4 Otolaryngology Audiology Services at [facility] [phone] Otolaryngolo ----- Condition On Discharge: Good Vital Signs at discharge: Ht 1.702 m (5' 7.01"), Wt 74.7 kg (164 lb 10.9 oz), BP 148/73, Pu lse 94, Temperature 37.2 C (99 F), RR 18, SpO2 96%, BMI 25.79 kg/(m^2). General: healthy, well-nourished, comfortable HEENT: EOMI, Conjuctivae normal Respiratory: unlabored breathing CV: Regular rate Abdomen: flat, soft, appropriately tender. Incision c/d/I Extremities:no deformities, no skin discoloration, warm bilaterally Mental status: awake and alert : Motta removed ----- Medication Reconciliation: Medication List START taking these medications aspirin chewable 81 mg Chew Chew and swallow 1 tablet once daily. oxyCODONE (immediate release) 5 mg Tab Commonly known as: ROXICODONE Take 1 tablet by mouth every four hours as needed for moderate pain. senna-docusate 8.6-50 mg Tab Commonly known as: SENNA-S Take 1 tablet by mouth two times daily. CONTINUE taking these medications INVOKANA 100 mg Tab Generic drug: canagliflozin Take 1 tablet by mouth once daily. JANUVIA 100 mg Tab Generic drug: sitaGLIPtin Take 100 mg by mouth once daily. LANDAILY SOLKATYAR U-100 INSULIN 100 unit/mL (3 mL) Inpn Generic drug: insulin glargine Inject 10 Units under the skin (SUBC) once daily at bedtime. metFORMIN 500 mg Tab Commonly known as: GLUCOPHAGE Take 1500 mg by mouth every morning and 1000 mg by mouth every evening pantoprazole 40 mg Tbec Commonly known as: PROTONIX Take 40 mg by mouth once daily as needed. simvastatin 40 mg Tab Commonly known as: ZOCOR Take 40 mg by mouth once daily in the evening. valsartan-hydrochlorothiazide 160-12.5 mg Tab Commonly known as: DIOVAN HCT Take 1 tablet by mouth once daily. STOP taking these medications HYDROcodone-acetaminophen 5-325 mg Tab Commonly known as: NORCO ----- Thank you for the opportunity to take care of Eliceo Nguyen during this inpatient stay , it has been our pleasure. Please call with any questions. Mario Guardado MD Urology PGY-1 Pg [id number] [facility] [address] [address] Associated attestation - Cristy Rubin MD - 09/17/2017 10:05 AM PDTI agree with discharge summary as written by Dr. Guardado. Pt will follow up in 3 weeks. Alex Rubin MD Mri Technologist Department of Urology [facility] in this encounter Discharge Instructions Xochilt Suarez RN - 09/17/2017 Additional Instructions: Surgical wound care. Discharge Nurse: Xochilt Suarez RN Date: 09/17/2017 Discharge Time: 9:09 AM in this encounter Medications at Time of [...] | | | | | | release (/EC) | needed. | | | | | [...] +---------+ + + as of this encounter Progress Notes Eder Gann MD,MPH - 09/17/2017 7:41 AM PDTFormatting of this note may be different fro m the original. DAILY PROGRESS NOTE Hospital Day #: 4 Attending Surgeon: Cirsty Rubin MD ID: Eliceo Nguyen is a 71 y.o. male who while undergoing Right nephrectomy on 09/13 was found to have significant IVC tumor thrombus requiring reconstruction by Vascular Surgery. Procedures: 09/13/17: IVC interposition graft (PTFE) with Left renal vein reimplantation Interval Events: - Duplex completed yesterday - No acute events overnight Medications: Reviewed by me in Epic. Objective: Last Vitals: BP 148/73 | Pulse 94 | Temp 37.2 C (99 F) | RR 18 | Ht 1.702 m (5' 7.01") | Wt 74.7 kg (164 lb 10.9 oz) | SpO2 96% | BMI 25.79 kg/(m^2) 24 Hour Vital Min/Max: Systolic (24hrs), Av , Min:138 , Max:166 Diastolic (24hrs), Av, Min:65, Max:74 Pulse Min: 85 Max: 94 Temp Min: 36.9 C (98.4 F) Max: 37.2 C (99 F) Resp Min: 16 Max: 18 SpO2 Min: 96 % Max: 100 % Intake/Output Summary (Last 24 hours) at 09/17/17 1366 Last data filed at 09/17/17 0429 Gross per 24 hour Intake 1558 ml Output 500 ml Net 1058 ml Physical Exam: General: Alert and oriented, no apparent distress. HEENT: Atraumatic, normocephalic. Deaf requiring hearing aids. Pulmonary: Unlabored on room air. Cardiac: Regular rate and rhythm. Abdomen: Soft, mildly distended, appropriately tender. Abdominal incision clean/dry/intact. Extremities: Warm and well perfused. Mild edema BLE. Labs: Notable for: Phos 2.2 H&H 7.9/26.1 (from 7.3/24.4 yesterday) Imaging: [facility] ABDOMINAL DUPLEX LTD ARTERY VEIN 09/16/2017 12:02 "The inferior vena cava is patent proximally, however, the mid and distal portion of the ve in was not visualized due to presence of overlying bowel gas. The left renal vein is patent." Assessment/Plan: Eliceo Nguyen is a 71 y.o. male s/p IVC reconstruction with Left renal vein re-implant ation for nephrectomy by Urology on 09/13. From our standpoint he is recovering well. - Continue ASA 81 - CircAids to BLE Dispo: Per primary service. OK to discharge at any time from Vascular Surgery standpoint. W e will schedule follow-up in clinic in 1 month with a repeat ultrasound. Please page the Vascular Surgery Team pager #[phone] with questions. Eder Gann M.D., M.P.H. Neurological Surgery Resident PGY-1 Pager: [phone] This assessment and plan was formulated both independently and in conjunction with the [facility] ular Surgery Team as well as the attending provider of record above regarding management of this patient and their medical issues. It is accurate to the best of my knowledge, and is s ubject to modification based on clinical developments, new data, or final imaging results.Doroteo Lester MD - 09/16/2017 10:14 AM PDTFormatting of this note may be different fr om the original. DAILY PROGRESS NOTE Hospital Day #: 3 Attending Surgeon: Dr. Mckeon ID: Eliceo Nguyen is a 71 y.o. male POD#3 from Interposition IVC graft (PTFE) with margo mplantation of the left renal vein. Urology Primary Interval Events: - No significant events - Having flatus - Working with PT - Pain well controlled - No nausea vomiting Exam Objective: Last Vitals: BP 157/74 | Pulse 85 | Temp 37 C (98.6 F) | RR 16 | Ht 1.702 m (5' 7.01") | Wt 74.7 kg (164 lb 10.9 oz) | SpO2 96% | BMI 25.79 kg/(m^2) 24 Hour Vital Min/Max: Systolic (24hrs), Av , Min:130 , Max:157 Diastolic (24hrs), Av, Min:59, Max:74 Intake/Output Summary (Last 24 hours) at 09/16/17 1014 Last data filed at 09/16/17 0900 Gross per 24 hour Intake 708 ml Output 1150 ml Net -442 ml Physical Exam: Gen: Alert and conversant older man in NAD. Hard of hearing. Resp: Unlabored on room air CV: RRR Abd: Soft, mildly distended, appropriately tender. Incison c/d/i Extremities: WWP, 1+ edema to knee. 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 male # S/p Nephrectomy with vascular IVC reimplantation of renal vein. ASA81 Continue DVT ppx CircAids to bilateral lower extermities, referral placed. Renal + IVC duplex appropriate today Rest of care per primary team Doroteo Lawton MD Vascular Surgery [employer] Please page the Vascular Surgery Team pager# [phone] for questions Current Facility-Administered Medications: acetaminophen (TYLENOL) tablet 650 mg, 650 mg, o ral, Q4H PRN, Mario Guardado MD, 650 mg at 09/15/17 0839 artificial tears (dextran 70-hypromellose) (NATURE'S TEARS) 0.1-0.3 % ophthalmic drops 1 dr op, 1 drop, Both Eyes, PRN, Mandy Baeza MD aspirin chewable tablet 81 mg, 81 mg, oral, DAILY, Mario Guardado MD, 81 mg at 09/16/17 0837 bisacodyl (DULCOLAX) suppository 10 mg, 10 mg, rectal, DAILY PRN, Mandy Baeza MD calcium carbonate chewable (TUMS) tablet 200 mg elemental, 500 mg total salt, oral, TID PRN , Mandy Baeza MD dextrose 50 % in water IV 25 mL, 25 mL, intravenous, PRN, Nata Roland MD glucagon (GLUCAGEN) injection 1 mg, 1 mg, intramuscular, PRN, Nata Roland MD glucose chewable tablet 16 g, 16 g, oral, PRN, Nata Roland MD heparin injection 5,000 Units, 5,000 Units, subcutaneous, Q8H, Mandy Baeza MD, 5,000 Unit s at 09/16/17 0639 HYDROmorphone (DILAUDID) injection 0.2-0.6 mg, 0.2-0.6 mg, intravenous, Q2H PRN, Mario Guardado MD insulin lispro (HUMALOG) injection, , subcutaneous, QID, Nata Roland MD, 2 Units at 0838 menthol (sugar free) (COUGH DROP) lozenge 5 mg, 1 lozenge, oral, PRN, Mandy aBeza MD naloxone (NARCAN) injection 40 mcg, 40 mcg, intravenous, PRN, Mandy Baeza MD omeprazole (PRILOSEC) oral suspension (compound) 20 mg, 20 mg, oral, BEFORE BREAKFAST, Michelle Roland MD, 20 mg at 09/16/17 0836 ondansetron ODT (ZOFRAN ODT) tablet 4 mg, 4 mg, oral, Q12H PRN, Nata Roland MD, 4 mg a t 09/14/17 0717 oxybutynin (DITROPAN) tablet 5 mg, 5 mg, oral, TID PRN, Mandy Baeza MD oxyCODONE (immediate release) (ROXICODONE) liquid 5-15 mg, 5-15 mg, oral, Q4H PRN, Cristy Rubin MD, 10 mg at 09/15/17 2144 polyethylene glycol (MIRALAX) packet 34 g, 34 g, oral, TID PRN, Mandy Baeza MD potassium, sodium phosphates (NEUTRA-PHOS, PHOS-NAK) 280-160-250 mg packet 1 packet, 1 pack et, oral, QID, Mario Guardado MD, 1 packet at 09/16/17 0934 senna-docusate (SENOKOT S) 8.6-50 mg 1 tablet, 1 tablet, oral, BID, Mandy Baeza MD, 1 tab let at 09/16/17 0837 simvastatin (ZOCOR) tablet 40 mg, 40 mg, oral, QPM, Madny Baeza MD, 40 mg at 09/15/17 214 4 Associated attestation - Christian Mckeon MD - 09/17/2017 8:43 AM PDTI saw and evaluated t he patient. I agree with the findings and the plan of care as documented in the resident s note. Christian Mckeon M.D. [facility] Vascular Surgery [address] [place] [address], [address] [address] Email: [email or web address] Mario Guardado MD - 09/16/2017 8:52 AM PDTFormatting of this note may be different fr om the original. Urology Progress Note Hospital Day: 3 Author: MANDY BAEZA MD Attending Physician: Cristy Rubin MD Patient: ELICEO NGUYEN [id number] 24H events/Subjective: ELVIS overnight. Pain is well controlled Tolerating clears not much intake Objective: Last Vitals: BP 157/74 | Pulse 85 | Temp 37 C (98.6 F) | RR 16 | Ht 1.702 m (5' 7.01") | Wt 74.7 kg (164 lb 10.9 oz) | SpO2 96% | BMI 25.79 kg/(m^2) 24 Hour Vital Min/Max: Systolic (24hrs), Av , Min:130 , Max:157 Diastolic (24hrs), Av, Min:59, Max:74 Pulse Av.7 Min: 71 Max: 100 Temp Av.9 C (98.5 F) Min: 36.6 C (97.9 F) Max: 37.3 C (99.1 F) Resp Av.5 Min: 7 Max: 14 SpO2 Av.4 % Min: 93 % Max: 100 % Intake/Output Summary (Last 24 hours) at 09/15/17 0850 Last data filed at 09/15/17 0838 Gross per 24 hour Intake 695 ml Output 1225 ml Net -530 ml PO 663 IV 260 UOP 875 Medication: acetaminophen (TYLENOL) tablet 650 mg, 650 mg, oral, Q4H PRN artificial tears (dextran 70-hypromellose) (NATURE'S TEARS) 0.1-0.3 % ophthalmic drops 1 dr op, 1 drop, Both Eyes, PRN aspirin chewable tablet 81 mg, 81 mg, oral, DAILY bisacodyl (DULCOLAX) suppository 10 mg, 10 mg, rectal, DAILY PRN calcium carbonate chewable (TUMS) tablet 200 mg elemental, 500 mg total salt, oral, TID PRN dextrose 50 % in water IV 25 mL, 25 mL, intravenous, PRN glucagon (GLUCAGEN) injection 1 mg, 1 mg, intramuscular, PRN glucose chewable tablet 16 g, 16 g, oral, PRN heparin injection 5,000 Units, 5,000 Units, subcutaneous, Q8H HYDROmorphone (DILAUDID) injection 0.2-0.6 mg, 0.2-0.6 mg, intravenous, Q2H PRN insulin lispro (HUMALOG) injection, , subcutaneous, QID menthol (sugar free) (COUGH DROP) lozenge 5 mg, 1 lozenge, oral, PRN naloxone (NARCAN) injection 40 mcg, 40 mcg, intravenous, PRN omeprazole (PRILOSEC) oral suspension (compound) 20 mg, 20 mg, oral, BEFORE BREAKFAST ondansetron ODT (ZOFRAN ODT) tablet 4 mg, 4 mg, oral, Q12H PRN oxybutynin (DITROPAN) tablet 5 mg, 5 mg, oral, TID PRN oxyCODONE (immediate release) (ROXICODONE) liquid 5-15 mg, 5-15 mg, oral, Q4H PRN polyethylene glycol (MIRALAX) packet 34 g, 34 g, oral, TID PRN potassium, sodium phosphates (NEUTRA-PHOS, PHOS-NAK) 280-160-250 mg packet 1 packet, 1 pack et, oral, QID senna-docusate (SENOKOT S) 8.6-50 mg 1 tablet, 1 tablet, oral, BID simvastatin (ZOCOR) tablet 40 mg, 40 mg, oral, QPM Labs: Recent Labs 09/13/17 1625 09/14/17 0002 09/14/17 1743 09/15/17 0005 09/15/17 0525 NA 142 -- 142 -- -- -- 139 K 3.9 -- 4.5 -- -- -- 4.4 CL 110* -- 108 -- -- -- 106 BICARB 25 -- 25 -- -- -- 24 BUN 16 -- 17 -- -- -- 17 CR 0.97 -- 1.10 -- -- -- 1.01 GLU 116* < > 144* < > 152* 131* 109* CA 7.4* -- 8.1* -- -- -- 8.2* MG -- -- 1.9 -- -- -- 2.1 PO4 2.9 -- 3.8 -- -- -- 2.2* < > = values in this interval not displayed. Recent Labs 09/13/17 1625 09/14/17 0002 09/15/17 0525 WBC 15.26* 17.20* 11.47* HB 7.7* 7.4* 7.7* HCT 25.5* 24.2* 25.4* PLT 314 327 300 Recent Labs 09/01/17 1113 09/13/17 1625 AST 10 -- ALT 14 -- TBILI 0.2* -- AP 150* -- ALB 3.6 2.2* TP 8.7* -- URINE CULTURE [facility] (no units) Date Value 09/01/2017 Insignificant growth (<10,000 cfu/mL) URINE SCREEN FOR CULTURE (no units) Date Value 09/01/2017 Sent for Culture (A) Exam: General: healthy, well-nourished, comfortable HEENT: EOMI, Conjuctivae normal Respiratory: unlabored breathing CV: Regular rate Abdomen: flat, soft, appropriately tender. Incision c/d/i Extremities:no deformities, no skin discoloration, warm bilaterally Mental status: awake and alert : Motta in place and draining yellow urine Assessment and Plan: 71 y.o. year old man with history of renal mass & IVC thrombus now s/p Open right radical n ephrectomy and caval thrombectomy, excision of vena cava, grafting of vena cava by vascular surgery and paracaval retroperitoneal lymph node dissection on 09/13/2017. # Postoperative care - Cleared by speech therapy for puree and fulls, has a prior history of suspected dysphagia vs. Pharyngeal diverticulum - Referral to outpatient speech in 1 month on discharge for another barium swallow - Referral to ENT on discharge for pharyngeal diverticulum suspicion - Heparin prophylaxis - Encourage ambulation today - PT recommending home with intermittent PRN assist and FWW which he already owns #Caval graft - Aspirin 81mg daily Will discharge 09/17 The attending of record for this patient is Cristy Rubin MD. MD Jered Laughlin, Doroteo Woodard MD - 09/15/2017 1:34 PM PDTFormatting of this note may be differen t from the original. DAILY PROGRESS NOTE Hospital Day #: 2 Attending Surgeon: Dr. Mckeon ID: Eliceo Nguyen is a 71 y.o. male POD#2 from Interposition IVC graft (PTFE) with margo mplantation of the left renal vein. Urology Primary Interval Events: - No significant events - No return of bowel function, no flatus, no BM - Pain well controlled - No nausea vomiting - Ambulating, up to chair today Exam Objective: Last Vitals: BP 130/59 | Pulse 96 | Temp 37.1 C (98.8 F) | RR 18 | Ht 1.702 m (5' 7.01" ) | Wt 74.7 kg (164 lb 10.9 oz) | SpO2 98% | BMI 25.79 kg/(m^2) 24 Hour Vital Min/Max: Systolic (24hrs), Av , Min:130 , Max:148 Diastolic (24hrs), Av, Min:59, Max:80 Pulse Min: 89 Max: 100 Temp Min: 36.6 C (97.9 F) Max: 37.3 C (99.1 F) Resp Min: 12 Max: 18 SpO2 Min: 93 % Max: 100 % Intake/Output Summary (Last 24 hours) at 09/15/17 1334 Last data filed at 09/15/17 0838 Gross per 24 hour Intake 495 ml Output 990 ml Net -495 ml Physical Exam: Gen: Alert and conversant older man in NAD. Hard of hearing. Resp: Unlabored on room air CV: RRR Abd: Soft, mildly distended, appropriately tender. Incison c/d/i Extremities: WWP, 1+ edema to knee. 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 male # S/p Nephrectomy with vascular IVC reimplantation of renal vein. ASA81 Continue DVT ppx CircAids to bilateral lower extermities, referral placed. Renal + IVC duplex once return of bowel function Rest of care per primary team Doroteo Lawton MD Vascular Surgery [employer] Please page the Vascular Surgery Team pager# [phone] for questions Current Facility-Administered Medications: acetaminophen (TYLENOL) tablet 650 mg, 650 mg, o ral, Q4H PRN, Mario Guardado MD, 650 mg at 09/15/17 0839 artificial tears (dextran 70-hypromellose) (NATURE'S TEARS) 0.1-0.3 % ophthalmic drops 1 dr op, 1 drop, Both Eyes, PRN, Mandy Baeza MD aspirin chewable tablet 81 mg, 81 mg, oral, DAILY, Mario Guardado MD, 81 mg at 09/15/17 0838 bisacodyl (DULCOLAX) suppository 10 mg, 10 mg, rectal, DAILY PRN, Mandy Baeza MD calcium carbonate chewable (TUMS) tablet 200 mg elemental, 500 mg total salt, oral, TID PRN , Mandy Baeza MD dextrose 50 % in water IV 25 mL, 25 mL, intravenous, PRN, Nata Roland MD glucagon (GLUCAGEN) injection 1 mg, 1 mg, intramuscular, PRN, Nata Roland MD glucose chewable tablet 16 g, 16 g, oral, PRN, Nata Roland MD heparin injection 5,000 Units, 5,000 Units, subcutaneous, Q8H, Mandy Baeza MD, 5,000 Unit s at 09/15/17 1319 HYDROmorphone (DILAUDID) injection 0.2-0.6 mg, 0.2-0.6 mg, intravenous, Q2H PRN, Mario Guardado MD insulin lispro (HUMALOG) injection, , subcutaneous, QID, Nata Roland MD, 2 Units at 1321 menthol (sugar free) (COUGH DROP) lozenge 5 mg, 1 lozenge, oral, PRN, Mandy Baeza MD naloxone (NARCAN) injection 40 mcg, 40 mcg, intravenous, PRN, Mandy Baeza MD omeprazole (PRILOSEC) oral suspension (compound) 20 mg, 20 mg, oral, BEFORE BREAKFAST, Michelle Roland MD, 20 mg at 09/15/17 0836 ondansetron ODT (ZOFRAN ODT) tablet 4 mg, 4 mg, oral, Q12H PRN, Nata Roland MD, 4 mg a t 09/14/17 0717 oxybutynin (DITROPAN) tablet 5 mg, 5 mg, oral, TID PRN, Mandy Baeza MD oxyCODONE (immediate release) (ROXICODONE) liquid 5-15 mg, 5-15 mg, oral, Q4H PRN, Cristy Rubin MD, 5 mg at 09/15/17 1210 polyethylene glycol (MIRALAX) packet 34 g, 34 g, oral, TID PRN, Mandy Baeza MD senna-docusate (SENOKOT S) 8.6-50 mg 1 tablet, 1 tablet, oral, BID, Mandy Baeza MD, 1 tab let at 09/15/17 0838 simvastatin (ZOCOR) tablet 40 mg, 40 mg, oral, QPM, Mandy Baeza MD, 40 mg at 09/14/17 211 9 Associated attestation - Christian Mckeon MD - 09/15/2017 5:55 PM PDTI saw and evaluated t he patient. I agree with the findings and the plan of care as documented in the resident s note. Christian Mckeon M.D. [facility] Vascular Surgery [address] [place] [address], [address] [address] Email: [email or web address] Mandy Baeza MD - 09/15/2017 8:50 AM PDTFormatting of this note may be different from lashay daigle original. Urology Progress Note Hospital Day: 2 Author: MANDY BAEZA MD Attending Physician: Cristy Rubin MD Patient: ELICEO NGUYEN [id number] 24H events/Subjective: ELVIS overnight. Pain is well controlled Transferred to regular floor last night Tolerating clears not much intake - flatus - bowel movement Has been to chair but not ambulating Objective: Last Vitals: BP 143/74 | Pulse 100 | Temp 37.3 C (99.1 F) | RR 14 | Ht 1.702 m (5' 7.01 ") | Wt 74.7 kg (164 lb 10.9 oz) | SpO2 98% | BMI 25.79 kg/(m^2) 24 Hour Vital Min/Max: Systolic (24hrs), Av , Min:120 , Max:148 Diastolic (24hrs), Av, Min:61, Max:80 Pulse Av.7 Min: 71 Max: 100 Temp Av.9 C (98.5 F) Min: 36.6 C (97.9 F) Max: 37.3 C (99.1 F) Resp Av.5 Min: 7 Max: 14 SpO2 Av.4 % Min: 93 % Max: 100 % Date 09/14/17 1500 - 09/15/17 0659 09/15/17 0700 - 09/16/17 0659 Shift 2625-5355 5291-2653 24 Hour Total 2536-5066 8411-3524 3260-9092 24 Hour Total I N T A K E P.O. 225 225 I.V. 10 410 IV Piggyback 260 260 Shift Total 235 635 260 260 O U T P U T Urine (mL/kg/hr) 490 (0.8) 500 (0.8) 1350 (0.8) Shift Total (mL/kg) 490 (6.6) 500 (6.7) 1350 (18.1) Weight (kg) 74.6 74.7 74.7 74.7 74.7 74.7 74.7 Intake/Output Summary (Last 24 hours) at 09/15/17 0850 Last data filed at 09/15/17 0838 Gross per 24 hour Intake 695 ml Output 1225 ml Net -530 ml Motta 1.3 liters Medication: acetaminophen (TYLENOL) tablet 650 mg, 650 mg, oral, Q4H PRN artificial tears (dextran 70-hypromellose) (NATURE'S TEARS) 0.1-0.3 % ophthalmic drops 1 dr op, 1 drop, Both Eyes, PRN aspirin chewable tablet 81 mg, 81 mg, oral, DAILY bisacodyl (DULCOLAX) suppository 10 mg, 10 mg, rectal, DAILY PRN calcium carbonate chewable (TUMS) tablet 200 mg elemental, 500 mg total salt, oral, TID PRN dextrose 50 % in water IV 25 mL, 25 mL, intravenous, PRN glucagon (GLUCAGEN) injection 1 mg, 1 mg, intramuscular, PRN glucose chewable tablet 16 g, 16 g, oral, PRN heparin injection 5,000 Units, 5,000 Units, subcutaneous, Q8H HYDROmorphone (DILAUDID) injection 0.2-0.6 mg, 0.2-0.6 mg, intravenous, Q2H PRN HYDROmorphone 0.5 mg/mL MATERIAL CARRIER (ADULT STANDARD DOSE) in 0.9 % NaCl, , intravenous, CONTINUOUS HYDROmorphone 0.5 mg/mL rescue bolus from MATERIAL CARRIER (ADULT STANDARD DOSE) 0.2 mg, 0.2 mg, intrave nous, Q10MIN PRN insulin lispro (HUMALOG) injection, , subcutaneous, QID menthol (sugar free) (COUGH DROP) lozenge 5 mg, 1 lozenge, oral, PRN naloxone (NARCAN) injection 40 mcg, 40 mcg, intravenous, PRN omeprazole (PRILOSEC) oral suspension (compound) 20 mg, 20 mg, oral, BEFORE BREAKFAST ondansetron ODT (ZOFRAN ODT) tablet 4 mg, 4 mg, oral, Q12H PRN oxybutynin (DITROPAN) tablet 5 mg, 5 mg, oral, TID PRN oxyCODONE (immediate release) (ROXICODONE) tablet 5-15 mg, 5-15 mg, oral, Q4H PRN polyethylene glycol (MIRALAX) packet 34 g, 34 g, oral, TID PRN senna-docusate (SENOKOT S) 8.6-50 mg 1 tablet, 1 tablet, oral, BID simvastatin (ZOCOR) tablet 40 mg, 40 mg, oral, QPM Labs: Recent Labs 09/13/17 1625 09/14/17 0002 09/14/17 1743 09/15/17 0005 09/15/17 0525 NA 142 -- 142 -- -- -- 139 K 3.9 -- 4.5 -- -- -- 4.4 CL 110* -- 108 -- -- -- 106 BICARB 25 -- 25 -- -- -- 24 BUN 16 -- 17 -- -- -- 17 CR 0.97 -- 1.10 -- -- -- 1.01 GLU 116* < > 144* < > 152* 131* 109* CA 7.4* -- 8.1* -- -- -- 8.2* MG -- -- 1.9 -- -- -- 2.1 PO4 2.9 -- 3.8 -- -- -- 2.2* < > = values in this interval not displayed. Recent Labs 09/13/17 1625 09/14/17 0002 09/15/17 0525 WBC 15.26* 17.20* 11.47* HB 7.7* 7.4* 7.7* HCT 25.5* 24.2* 25.4* PLT 314 327 300 Recent Labs 09/01/17 1113 09/13/17 1625 AST 10 -- ALT 14 -- TBILI 0.2* -- AP 150* -- ALB 3.6 2.2* TP 8.7* -- URINE CULTURE [facility] (no units) Date Value 09/01/2017 Insignificant growth (<10,000 cfu/mL) URINE SCREEN FOR CULTURE (no units) Date Value 09/01/2017 Sent for Culture (A) Exam: General: healthy, well-nourished, comfortable HEENT: EOMI, Conjuctivae normal Respiratory: unlabored breathing CV: Regular rate Abdomen: flat, soft, appropriately tender. Incision c/d/i Extremities:no deformities, no skin discoloration, warm bilaterally Mental status: awake and alert : Motta in place and draining yellow urine Assessment and Plan: 71 y.o. year old man with history of renal mass & IVC thrombus now s/p Open right radical n ephrectomy and caval thrombectomy, excision of vena cava, grafting of vena cava by vascular surgery and paracaval retroperitoneal lymph node dissection on 09/13/2017. # Postoperative care - Cleared by speech therapy for puree and fulls, has a prior history of suspected dysphagia vs. Pharyngeal diverticulum - Transition to oral pain meds - Heparin prophylaxis - Encourage ambulation today Remove Motta catheter after adequate ambulation - PT eval and treat #Caval graft - Aspirin 81mg daily The attending of record for this patient is Cristy Rubin MD. Mandy Baeza MD Urology Pager [phone] Nata Roland MD - 09/14/2017 3:04 PM PDTFormatting of this note may be different fro m the original. Cardiovascular Intensive Care Unit Team Progress Note CVICU D2 Assigned #[id number] Admission dx: N28.89 (ICD-10-CM) - 593.9 (ICD-9-CM) - RENAL MASS Days in ICU 1 Days in Hospital Abbreviated HPI / Daily Assessment Mr. 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 24 Hour events -arterial line d/c -softer pressures overnight, but did not receive IVF bolus -pain well controlled with MATERIAL CARRIER -CLD Code Status Code Status Full Code Active Diagnosis with Assessment & Plan Priority Class POA Head/Neck Cochlear implant in place Yes Current Assessment & Plan Working well. Able to hear well except over the phone. 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 -Hold in post-operative period Digestive Gastroesophageal reflux disease Yes Current Assessment & Plan On pantoprazole as outpatient. -Continue omeprazole (formulary) Dysphagia Unknown Current Assessment & Plan Has had issues with swallowing and dysphagia for quite some time. Crushes all meds and ta kes them with applesauce. GLUE BONE CRUSHER consult and recommend barium swallow. -CLD -Barium swallow today -GLUE BONE CRUSHER following Hematologic Acute blood loss anemia Unknown Current Assessment & Plan Hb of 9.6 preoperatively thought to be 2/2 oncologic process. Hct of 22.6 in [place]. Stable t his AM -Daily CBC Endocrine/Metabolic Type 2 diabetes mellitus with complication, with long-term current use of insulin (HCC) Yes Current Assessment & Plan On lantus 10-20 units at bedtime along with metformin, Januvia, and Invokana. Minimal ins ulin requirements while here, although only on CLD. -SSI for now, may need to add NPH Other Status post nephrectomy Unknown Current Assessment & Plan Now s/p open right radical nephrectomy and caval thrombectomy excision/grafting of vena c adrián, and retroperitoneal lymph node dissection on 09/13. On .05 NE when IVC clamped, but able to be weaned during the case. Given 20 mg methadone prior to the case. No epidural was plac ed out of concern for the need of heparin during the case (not required). Consented for post -op epidural. Vena cava graft done by vascular. Has MATERIAL CARRIER. 6.3 L crystalloid given during the case-no blood products given (1200 mL EBL). Did well overnight HD and with pain control. -Continue motta per urology -HM MATERIAL CARRIER -CLD until GLUE BONE CRUSHER eval/uro approval -Closely monitor hemodynamics -[facility] status Code Status Updated to: FULL Physical Exam vitals and nursing note reviewed. Constitutional: Pale thin elderly man sitting up in a chair, NAD HENT: Head:normocephalic Eyes: EOM normal Neck: R CVC in place Cardiovascular: normal rate, regular rhythm, normal heart sounds and intact distal pulses n o murmur heard.Exam reveals no friction rub. Pulmonary: effort normal and breath sounds normal. He has no wheezesno rales No respiratory distress. Abdominal: Chevron shaped incision sutured across abdomen. C/d/I, appropriately TTP Genitourinary: Motta with clear yellow urine Musculoskeletal: Trace pedal edema Neurological: He is alert and oriented to person, place, and time. Skin: Skin is warm and dry. Psychiatric: He has a normal mood and affect. normal thought content and judgment normal. His behavior is normal. Service Urology [26] Admitting provider and ICU treatment team members Provider Role Specialty Pager Cristy Rubin MD Admitting Provider Urological Surgery [id number] The Advanced Care Note for this patient can be found under the notes tab in chart review. Quality section Motta necessity reviewed: Acute urinary retention or obstruction FAST HUG Feeding: clears Analgesia: MATERIAL CARRIER Sedation: n/a Thromboprophylaxis: Heparin SQ Head of Bed: Speech and swallow evaluation Ulcer Prophylaxis: Omeprazole Glycemic Control: insulin sliding Created by Nata Roland MD Author:[place] [address]Moustapha Lema MD - 09/14/2017 10:11 AM PDTFormatting of this note m ay be different from the original. Cardiovascular Intensive Care Unit Attending Progress Note CVICU D2 Assigned #[id number] Hospital admission dx: N28.89 (ICD-10-CM) - 593.9 (ICD-9-CM) - RENAL MASS Days in ICU 1 Days in Hospital Abbreviated HPI / Daily Assessment Mr. 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 Medical Decision Making POD #1 s/p open right radical nephrectomy and caval thrombectomy, excision of vena cava wi th grafting of vena cava, and retroperitoneal lymph node dissection. Mr. Nguyen was extuba domenica at the end of the procedure. He required norepinephrine throughout the procedure but is without need of vasoactive medications at this time; he also had an estimated blood loss of 1200 mL. Plan: - renal mass + IVC thrombus s/p above procedure: doppler checks; monitor drain output; cutler sfuse if Hct < 21, stable so far and above goal - baseline CKD: will monitor Cr in light of surgery, UOP has been good - acute blood loss anemia: as above - transfuse if Hct drops - pain control w/ MATERIAL CARRIER - bronchiole hygiene - mobilize - speech/swallow eval, if advance diet stop IVF Dispo: stable for [facility] Hospital Problems Priority POA Head/Neck Cochlear implant in place Yes Cardiovascular Essential hypertension Yes Digestive Gastroesophageal reflux disease Yes Dysphagia Unknown Hematologic Acute blood loss anemia Unknown Endocrine/Metabolic Type 2 diabetes mellitus with complication, with long-term current use of insulin (HCC) Y es Other Status post nephrectomy Unknown Service Urology [26] Admitting provider and ICU treatment team members Provider Role Specialty Pager Cristy Rubin MD Admitting Provider Urological Surgery [id number] Code Status Code Status Full Code The Advanced Care Note for this patient can be found under the notes tab in chart review. Quality section CVC necessity reviewed: Plan to DC today Motta necessity reviewed: Hourly/Accurate measurement of urinary output for clinical manage ment of critically ill patients, discuss plan for motta with urologic service. I have spent a total of 32 minutes in the direct care and management of this patient indepe ndent of any time spent teaching or performing any separately billable procedures. I reviewe d the documented findings, all data and the recent imaging available. I saw and evaluated t he patient at the bedside together with Dr. Nata Roland.Please see their note for details. I agree with the assessment and plan as described in the resident's note with the following exceptions/additions as noted. Date of Service: 09/14/2017 [facility] DEPARTMENT: ANE ICU CARDIAC Place of Service:- Inpatient CSN: [id number] Suggested Modifier: GC - Resident Involved Suggested CPT: TO CORRESPONDENT Author:Moustapha Lema MD [address] [address] [place] [address]DsocnlkMario Guardado MD - 09/14/2017 8:33 AM PDTUrology Progress Not e Hospital Day: 1 Author: Mario Guardado MD Attending Physician: Cristy Rubin MD Patient: ELICEO NGUYEN [id number] 24H events/Subjective: No acute events overnight Pt comfortable in bed this morning Pain well controlled Ok to transfer out of ICU, appreciate their care Objective: I/O: IV 8300 UOP 2000 EBL 1200 Last Vitals: BP 104/59 | Pulse 72 | Temp 37 C (98.6 F) | RR 6 | Ht 1.702 m (5' 7.01") | Wt 74.6 kg (164 lb 7.4 oz) | SpO2 97% | BMI 25.75 kg/(m^2) 24 Hour Vital Min/Max: Systolic (24hrs), Av , Min:99 , Max:150 Diastolic (24hrs), Av, Min:53, Max:80 Pulse Min: 68 Max: 104 Temp Min: 36.1 C (97 F) Max: 37 C (98.6 F) Resp Min: 5 Max: 21 SpO2 Min: 91 % Max: 100 % Exam: General: healthy, well-nourished, comfortable HEENT: EOMI, Conjuctivae normal Respiratory: unlabored breathing CV: Regular rate Abdomen: flat, soft, appropriately tender. Incision c/d/i Extremities:no deformities, no skin discoloration, warm bilaterally Mental status: awake and alert : Motta in place and draining yellow urine Assessment and Plan: 71 y.o. year old man with history of renal mass & IVC thrombus now s/p Open right radical n ephrectomy and caval thrombectomy, excision of vena cava, grafting of vena cava by vascular surgery and paracaval retroperitoneal lymph node dissection on 09/13/2017. #Postoperative care - Transfer to floor from ICU - Continue to monitor vitals and CBC, currently stable - CLD when patient is cleared by speech therapy, has a prior history of suspected dysphagia vs. Pharyngeal diverticulum - Continue MATERIAL CARRIER pain control - Heparin prophylaxis - Maintain motta catheter - Oxybutynin for bladder discomfort due to motta #Caval graft - Aspirin 81mg daily The attending of record for this patient is Cristy Rubin MD. Mario Guardado MD Department of Urology [facility] [place] Madiha Ramirez MD - 09/14/2017 6:08 AM PDTFormatting of this note may be different fr om the original. Attending Surgeon: Farhat Young Author: Madiha Ramirez MD Date: 09/14/2017 Identification: Eliceo Nguyen is a 71 year old male with history significant for the following vascular operations: 09/13/17 - Interposition IVC graft (PTFE) with reimplantation of the left renal vein Subjective: - Doing well this AM; no complaints - No return of bowel function - No n/v - Denies any significant pain Objective: Ht 1.702 m (5' 7.01"), Wt 69 kg (152 lb 1.9 oz), BP 101/56, Pulse 97, Temperature 36.9 C (98.5 F), RR 7, SpO2 91%, BMI 23.82 kg/(m^2). Physical Examination: General: No apparent distress. HEENT: Atraumatic, normocephalic. Pulmonary: Clear and no cough or difficulty breathing. Cardiac: Regular rate and rhythm. Abdomen: Soft, non-tender, non-distended. Chevron incision c/d/I. Extremities: Warm, well perfused Neurological: Alert and oriented to person, place, time, and reason for evaluation. No obv ious cranial nerve deficits. Laboratory Data: Lab Results Component Value Date NA 142 09/14/2017 K 4.5 09/14/2017 CL 108 09/14/2017 BICARB 25 09/14/2017 BUN 17 09/14/2017 CR 1.10 09/14/2017 GLU 144 09/14/2017 CA 8.1 09/14/2017 Lab Results Component Value Date WBC 17.20 09/14/2017 HB 7.4 09/14/2017 HCT 24.2 09/14/2017 PLT 327 09/14/2017 MCV 77.6 09/14/2017 RDW 47.8 09/14/2017 No results found for: APTT, FIBRINOGEN Imaging: (Vascular Labs, Ultrasound, Computed Tomography) CXR 09/13 - with CVC in appropriate position Assessment and Plan: Eliceo Nguyen is a 71 year old male with history of right renal mass with IVC thrombus s/p right radical nephrectomy on 09/13; vascular surgery performed interposition IVC graft ( PTFE) with reimplantation of the left renal vein. 1. ASA (81 mg). 2. DVT ppx to start today. 3. Renal/IVC duplex with patient has return of bowel function. Farhat Young MD is the attending surgeon and agrees with my assessment and plan. Madiha Ramirez MD General Surgery [id number] Johnson PA - 09/13/2017 10:51 PM PDTFormatting of this note may be different from the original. Cardiovascular Intensive Care Unit Clinical Update Note Team: D2 Team Pager: [phone] Attending: Dr. Rios Pt Name: Eliceo Nguyen ID: Abbreviated HPI Abbreviated HPI / Daily Assessment Mr. 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 Update: Pain well controlled with HM MATERIAL CARRIER. A-line no longer correlating with cuff BP S: O: BP 114/63 | Pulse 95 | Temp 36.9 C (98.5 F) | RR 15 | Ht 1.702 m (5' 7.01") | Wt 74.6 k g (164 lb 7.4 oz) | SpO2 96% | BMI 25.75 kg/(m^2) Pain Score: Physical Exam vitals reviewed. Cardiovascular: normal rate, regular rhythm, normal heart sounds and intact distal pulses Pulmonary: effort normal and breath sounds normal. Abdominal: Abdomen is soft. No bowel sounds Incision c/d/I Erythema, blanchable, on R side of abdomen just lateral to incision Neurological: He is alert and oriented to person, place, and time.Strength +5/5 BUE and BLE Skin: Skin is warm and dry. Assessment and Plan: Hospital Problems Priority POA Head/Neck Cochlear implant in place Yes Cardiovascular Essential hypertension Yes Digestive Gastroesophageal reflux disease Yes Dysphagia Unknown Hematologic Acute blood loss anemia Unknown Endocrine/Metabolic Type 2 diabetes mellitus with complication, with long-term current use of insulin (HCC) Y es Other Status post nephrectomy Unknown Plan: - continue HM MATERIAL CARRIER - d/c a-line - SSI - cbc in am, earlier if hypotensive I have spent a total of 30 Minutes independently in the direct care and management of th is patient.Time is independent of any time spent teaching or performing any separately billa ble procedures. I reviewed the documented findings, all data and the recent imaging availabl e. Date of Service: 09/13/2017 MCKAYLA VIEYRA [facility] DEPARTMENT: ANE ICU CARDIAC Place of Service:- Inpatient CSN: [id number] Suggested Modifier: None Suggested CPT: TO CORRESPONDENT MCKAYLA VIEYRA in this encounter Plan of Treatment +--------+ + + + + | Date | Type | Specialty | Care Team | Description | +--------+ + + + + | 12/20/ | Diagnostic | Operating Theatre Technician | Nils Woody, | | | 2018 | Visit | | Keyla [facility] [address] | | | | | [address] [facility] | | | | | | [address] [place], [place] | | | | | | [phone] | | | | | | | [...] + + + in this encounter Results CAPILLARY BLOOD GLUCOSE (NO CHG), POC (09/17/2017 8:22 AM) + +---------+ + + | Component [...] | + + + + + | [facility] | [address] | [place], [place] | | | [facility] OF [facility] | [address] | [address] | | | TESTS | | | | + + + + + CBC (HEMOGRAM) ONLY (09/17/2017 4:50 AM) + + + + + | Component | Value | Ref Range | Performed At | + + + + + | WHITE CELL COUNT | 8.56 | 3.50 - 10.80 K/cu mm | [facility] | | | | | [...] | + + + + + | [facility] | [address] | [place] [address] | | | SERVICES, [place] | [address] | | | + + + + + PHOSPHORUS, PLASMA (09/17/2017 4:50 AM) + +---------+ + + | Component [...] | + + + + + | [facility] | [address] | [place] [address] | | | SERVICES, [place]ORE | [address] | | | + + + + + MAGNESIUM, PLASMA (09/17/2017 4:50 AM) + +-------+ + + | Component | Value | Ref Range | Performed At | + +-------+ + + | MAGNESIUM,PLASMA | 2.0 | 1.6 - 2.6 mg/dL | [facility] | | | | | SERVICES, CORE | + +-------+ + + + + | Specimen | + + | Blood - Blood | + + + + + | Narrative | Performed At | + + + | Reference range change effective 11/09/16. | [facility] | | | LABORATORY | | | SERVICES, CORE | + + + + + + + + | Performing | Address | City/State/Zipcode | Phone Number | | Organization | | | | + + + + + | [facility] | [address] | [place] [address] | | | SERVICES, [place] | [address] | | | + + + + + BASIC METABOLIC SET (NA, K, CL, TCO2, BUN, CR, GLU, CA) (09/17/2017 4:50 AM) + +---------+ + + | Component | Value | Ref Range | Performed At | + +---------+ + + | GLUCOSE, PLASMA | 139 (H) | 70 - 99 mg/dL | [facility] | | (LAB) | | | [place] | + +---------+ + + | BUN, PLASMA (LAB) | 12 | 6 - 20 mg/dL | [facility] | | | | | SERVICES, CORE | + +---------+ + + | CREATININE PLASMA | 0.96 | 0.70 - 1.30 mg/dL | [facility] | | (LAB) | | | SERVICES, CORE | + +---------+ + + | EGFR - | >60 | >60 mL/min | [facility] | | [place] | | | SERVICES, CORE | + +---------+ + + | EGFR NON | >60 | >60 mL/min | [facility] | | -[place] | | | SERVICES, CORE | + +---------+ + + | SODIUM, PLASMA (LAB) | 139 | 136 - 145 mmol/L | [facility] | | | | | SERVICES, CORE | + +---------+ + + | POTASSIUM, PLASMA | 3.9 | 3.4 - 5.0 mmol/L | [facility] | | (LAB) | | | SERVICES, CORE | + +---------+ + + | CHLORIDE, PLASMA | 104 | 97 - 108 mmol/L | [facility] | | (LAB) | | | SERVICES, CORE | + +---------+ + + | TOTAL CO2, PLASMA | 29 | 21 - 32 mmol/L | [facility] | | (LAB) | | | SERVICES, CORE | + +---------+ + + | CALCIUM, PLASMA | 8.2 (L) | 8.6 - 10.2 mg/dL | [facility] | | (LAB) | | | SERVICES, CORE | + +---------+ + + | ANION GAP | 6 | 4 - 11 mmol/L | [facility] | | | | | SERVICES, CORE | + +---------+ + + | POTASSIUM CMNT | No Hemo | | [facility] | | | | | SERVICES, CORE | + +---------+ + + + + | Specimen | + + | Blood - Blood | + + + + + | Narrative | Performed At | + + + | GFR is estimated using the MDRD equation recommended by the | [facility] | | National Kidney Disease Education Program. [...] | + + + + + | [facility] | [address] | [place] [address] | | | SERVICES, CORE | [address] | | | + + + + + CAPILLARY BLOOD GLUCOSE (NO CHG), POC (09/16/2017 10:37 PM) + +---------+ + + | Component | Value | Ref Range | Performed At | + +---------+ + + | BLOOD GLUCOSE, POC | 183 (H) | 70 - 99 mg/dL | [facility] | | | | | [facility] | | | | | CARE TESTS | + +---------+ + + + + + + + | Performing | Address | City/State/Zipcode | Phone Number | | Organization | | | | + + + + + | [facility] | [address] | [place], [place] | | | [place] [place] | [address] | [address] | | | TESTS | | | | + + + + + CAPILLARY BLOOD GLUCOSE (NO CHG), POC (09/16/2017 4:43 PM) + +---------+ + + | Component | Value | Ref Range | Performed At | + +---------+ + + | BLOOD GLUCOSE, POC | 159 (H) | 70 - 99 mg/dL | [facility] | | | | | [facility] | | | | | CARE TESTS | + +---------+ + + + + + + + | Performing | Address | City/State/Zipcode | Phone Number | | Organization | | | | + + + + + | [facility] | [address] | [place], [place] | | | [facility] | [address] | [address] | | | TESTS | | | | + + + + + CAPILLARY BLOOD GLUCOSE (NO CHG), POC (09/16/2017 1:08 PM) + +---------+ + + | Component | Value | Ref Range | Performed At | + +---------+ + + | BLOOD GLUCOSE, POC | 283 (H) | 70 - 99 mg/dL | [facility] | | | | | [facility] | | | | | CARE TESTS | + +---------+ + + + + + + + | Performing | Address | City/State/Zipcode | Phone Number | | Organization | | | | + + + + + | [facility] | [address] | [place], [place] | | | [place] [place] [facility] | [address] | [address] | | | TESTS | | | | + + + + + VASC LAB ABDOMINAL DUPLEX LTD ARTERY VEIN (09/16/2017 12:02 PM) + + + | Narrative | Performed At | + + + | General: The duplex scanner was used to examine the inferior vena | [facility] | | cava and the left renal vein. The inferior vena cava is patent | RADIOLOGY VASC | | proximally, however, the mid and distal portion of the vein was not | US | | visualized due to presence of overlying bowel gas. The left renal | | | vein is patent. Conclusions: Examination of the inferior vena | | | cava and the left renal vein. The proximal inferior vena cava is | | | patent without thrombus. The mid and distal portion of the inferior | | | vena cava was not visualized as described above. The left renal vein | | | is patent without thrombus. I have personally reviewed | | | the images and, if necessary, edited the report. I agree with the | | | report as now presented. | | + + + + + | Procedure Note | + + | Service Account, Radiant Res In Interface - 09/16/2017 12:28 PM PDT General: The | | duplex scanner was used to examine the inferior vena cava and the left renal vein.The | | inferior vena cava is patent proximally, however, the mid and distal portion of the vein | | was not visualized due to presence of overlying bowel gas.The left renal vein is | | patent.Conclusions: Examination of the inferior vena cava and the left renal vein.The | | proximal inferior vena cava is patent without thrombus. The mid and distal portion of | | the inferior vena cava was not visualized as described above.The left renal vein is | | patent without thrombus.I have personally reviewed the images and, if necessary, edited | | the report. I agree with the report as now presented. | | | | | | | |I have personally reviewed [...] | | | + +---------+ + + CAPILLARY BLOOD GLUCOSE (NO CHG), POC (09/16/2017 8:27 AM) + +---------+ + + | Component | Value | Ref Range | Performed At | + +---------+ + + | BLOOD GLUCOSE, POC | 183 (H) | 70 - 99 mg/dL | [facility] | | | | | [facility] | | | | | CARE TESTS | + +---------+ + + + + + + + | Performing | Address | City/State/Zipcode | Phone Number | | Organization | | | | + + + + + | [facility] | [address] | [place], [place] | | | [facility] | [address] | [address] | | | TESTS | | | | + + + + + CBC (HEMOGRAM) ONLY (09/16/2017 4:16 AM) + + + + + | Component | Value | Ref Range | Performed At | + + + + + | WHITE CELL COUNT | 9.09 | 3.50 - 10.80 K/cu mm | [facility] | | | | | SERVICES, CORE | + + + + + | RED CELL COUNT | 3.10 (L) | 4.50 - 6.00 M/cu mm | [facility] | | | | | SERVICES, CORE | + + + + + | HEMOGLOBIN | 7.3 (L) | 13.5 - 17.5 g/dL | [facility] | | | | | SERVICES, CORE | + + + + + | HEMATOCRIT | 24.4 (L) | 41.0 - 53.0 % | [facility] | | | | | SERVICES, CORE | + + + + + | MCV | 78.7 (L) | 80.0 - 100.0 fL | [facility] | | | | | SERVICES, CORE | + + + + + | MCHC | 29.9 (L) | 32.0 - 36.0 g/dL | [facility] | | | | | SERVICES, CORE | + + + + + | RDW SD | 48.7 (H) | 35.1 - 46.3 fL | [facility] | | | | | SERVICES, CORE | + + + + + | PLATELET COUNT | 305 | 150 - 400 K/cu mm | [facility] | | | | | SERVICES, CORE | + + + + + | MPV | 10.5 | 9.7 - 12.3 fL | [facility] | | | | | SERVICES, CORE | + + + + + | NRBC% | 0.0 | 0.0 - 0.3 % | [facility] | | | | | SERVICES, CORE | + + + + + | NRBC# | 0.00 | 0.00 - 0.02 K/cu mm | [facility] | | | | | SERVICES, CORE | + + + + + + + | Specimen | + + | Blood - Blood | + + + + + | Narrative | Performed At | + + + | New reference ranges for MCV, MCHC, PLT, IG% and IG# effective | [facility] | | 08/04/2017 | LABORATORY | | | [facility] | + + + + + + + + | Performing | Address | City/State/Zipcode | Phone Number | | Organization | | | | + + + + + | [facility] | [address] | [place] [address] | | | [facility] | [address] | | | + + + + + PHOSPHORUS, PLASMA (09/16/2017 4:16 AM) + +---------+ + + | Component | Value | Ref Range | Performed At | + +---------+ + + | PHOSPHORUS, PLASMA | 2.1 (L) | 2.4 - 4.7 mg/dL | [facility] | | (LAB) | | | SERVICES, CORE | + +---------+ + + + + | Specimen | + + | Blood - Blood | + + + + + + + | Performing | Address | City/State/Zipcode | Phone Number | | Organization | | | | + + + + + | [facility] | [address] | [place] [address] | | | SERVICES, CORE | [address] | | | + + + + + MAGNESIUM, PLASMA (09/16/2017 4:16 AM) + +-------+ + + | Component | Value | Ref Range | Performed At | + +-------+ + + | MAGNESIUM,PLASMA | 1.9 | 1.6 - 2.6 mg/dL | [facility] | | | | | [facility] | + +-------+ + + + + | Specimen | + + | Blood - Blood | + + + + + | Narrative | Performed At | + + + | Reference range change effective 11/09/16. | [facility] | | | LABORATORY | | | [place] [address] | + + + + + + + + | Performing | Address | City/State/Zipcode | Phone Number | | Organization | | | | + + + + + | [facility] | [address] | [place] [address] | | | [facility] | [address] | | | + + + + + BASIC METABOLIC SET (NA, K, CL, TCO2, BUN, CR, GLU, CA) (09/16/2017 4:16 AM) + +---------+ + + | Component | Value | Ref Range | Performed At | + +---------+ + + | GLUCOSE, PLASMA | 160 (H) | 70 - 99 mg/dL | [facility] | | (LAB) | | | SERVICES, CORE | + +---------+ + + | BUN, PLASMA (LAB) | 15 | 6 - 20 mg/dL | [facility] | | | | | SERVICES, CORE | + +---------+ + + | CREATININE PLASMA | 0.99 | 0.70 - 1.30 mg/dL | [facility] | | (LAB) | | | SERVICES, CORE | + +---------+ + + | EGFR - | >60 | >60 mL/min | [facility] | | [place] | | | SERVICES, CORE | + +---------+ + + | EGFR NON | >60 | >60 mL/min | [facility] | | -[place] | | | SERVICES, CORE | + +---------+ + + | SODIUM, PLASMA (LAB) | 141 | 136 - 145 mmol/L | [facility] | | | | | SERVICES, CORE | + +---------+ + + | POTASSIUM, PLASMA | 4.2 | 3.4 - 5.0 mmol/L | [facility] | | (LAB) | | | SERVICES, CORE | + +---------+ + + | CHLORIDE, PLASMA | 105 | 97 - 108 mmol/L | [facility] | | (LAB) | | | SERVICES, CORE | + +---------+ + + | TOTAL CO2, PLASMA | 29 | 21 - 32 mmol/L | [facility] | | (LAB) | | | SERVICES, CORE | + +---------+ + + | CALCIUM, PLASMA | 8.1 (L) | 8.6 - 10.2 mg/dL | [...] + + + + | [facility] | [address] | [place] [address] | | | SERVICES, CORE | [address] | | | + + + + + CAPILLARY BLOOD GLUCOSE (NO CHG), POC (09/15/2017 9:25 PM) + +---------+ + + | Component | Value | Ref Range | Performed At | + +---------+ + + | BLOOD GLUCOSE, POC | 204 (H) | 70 - 99 mg/dL | [...] [facility] | [address] | [place], [place] | | | [facility] OF CARE | [address] | [address] | | | TESTS | | | | + + + + + CAPILLARY BLOOD GLUCOSE (NO CHG), POC (09/15/2017 5:53 PM) + +---------+ + + | Component | Value | Ref Range | Performed At | + +---------+ + + | BLOOD GLUCOSE, POC | 186 (H) | 70 - 99 mg/dL | [facility] | | | | | [facility] | | | | | CARE TESTS | + +---------+ + + + + + + + | Performing | Address | City/State/Zipcode | Phone Number | | Organization | | | | + + + + + | [facility] | [address] | [place], [place] | | | [facility]ARE | [address] | [address] | | | TESTS | | | | + + + + + CAPILLARY BLOOD GLUCOSE (NO CHG), POC (09/15/2017 1:05 PM) + +---------+ + + | Component | Value | Ref Range | Performed At | + +---------+ + + | BLOOD GLUCOSE, POC | 148 (H) | 70 - 99 mg/dL | [facility] | | | | | [facility] | | | | | CARE TESTS | + +---------+ + + + + + + + | Performing | Address | City/State/Zipcode | Phone Number | | Organization | | | | + + + + + | [facility] | [address] | [place], [place] | | | [facility] CARE | [address] | [address] | | | TESTS | | | | + + + + + CAPILLARY BLOOD GLUCOSE (NO CHG), POC (09/15/2017 9:30 AM) + +---------+ + + | Component | Value | Ref Range | Performed At | + +---------+ + + | BLOOD GLUCOSE, POC | 109 (H) | 70 - 99 mg/dL | [facility] | | | | | [facility] | | | | | CARE TESTS | + +---------+ + + + + + + + | Performing | Address | City/State/Zipcode | Phone Number | | Organization | | | | + + + + + | [facility] | [address] | [place], [place] | | | [facility] CARE | [address] | [address] | | | TESTS | | | | + + + + + CBC (HEMOGRAM) ONLY (09/15/2017 5:25 AM) + + + + + | Component | Value | Ref Range | Performed At | + + + + + | WHITE CELL COUNT | 11.47 (H) | 3.50 - 10.80 K/cu mm | [facility] | | | | | SERVICES, CORE | + + + + + | RED CELL COUNT | 3.21 (L) | 4.50 - 6.00 M/cu mm | [facility] | | | | | SERVICES, CORE | + + + + + | HEMOGLOBIN | 7.7 (L) | 13.5 - 17.5 g/dL | [facility] | | | | | SERVICES, CORE | + + + + + | HEMATOCRIT | 25.4 (L) | 41.0 - 53.0 % | [facility] | | | | | SERVICES, CORE | + + + + + | MCV | 79.1 (L) | 80.0 - 100.0 fL | [facility] | | | | | SERVICES, CORE | + + + + + | MCHC | 30.3 (L) | 32.0 - 36.0 g/dL | [facility] | | | | | SERVICES, CORE | + + + + + | RDW SD | 48.9 (H) | 35.1 - 46.3 fL | [facility] | | | | | SERVICES, CORE | + + + + + | PLATELET COUNT | 300 | 150 - 400 K/cu mm | [facility] | | | | | SERVICES, CORE | + + + + + | MPV | 10.7 | 9.7 - 12.3 fL | [facility] | | | | | SERVICES, CORE | + + + + + | NRBC% | 0.0 | 0.0 - 0.3 % | [facility] | | | | | SERVICES, [...] MCHC, PLT, IG% and IG# effective | [facility] | | 08/04/2017 | LABORATORY | | | SERVICES, CORE | + + + + + + + + | Performing | Address | City/State/Zipcode | Phone Number | | Organization | | | | + + + + + | [facility] | [address] | [place] [address] | | | SERVICES, CORE | [address] | | | + + + + + PHOSPHORUS, PLASMA (09/15/2017 5:25 AM) + +---------+ + + | Component | Value | Ref Range | Performed At | + +---------+ + + | PHOSPHORUS, PLASMA | 2.2 (L) | 2.4 - 4.7 mg/dL | [facility] | | (LAB) | | | SERVICES, CORE | + +---------+ + + + + | Specimen | + + | Blood - Blood | + + + + + + + | Performing | Address | City/State/Zipcode | Phone Number | | Organization | | | | + + + + + | [facility] | [address] | [place] [address] | | | SERVICES, [place] | [address] | | | + + + + + MAGNESIUM, PLASMA (09/15/2017 5:25 AM) + +-------+ + + | Component | Value | Ref Range | Performed At | + +-------+ + + | MAGNESIUM,PLASMA | 2.1 | 1.6 - 2.6 mg/dL | [facility] | | | | | [facility] | + +-------+ + + + + | Specimen | + + | Blood - Blood | + + + + + | Narrative | Performed At | + + + | Reference range change effective 11/09/16. | [facility] | | | LABORATORY | | | [facility] [address] | + + + + + + + + | Performing | Address | City/State/Zipcode | Phone Number | | Organization | | | | + + + + + | [facility] | [address] | [place] [address] | | | [place] | [address] | | | + + + + + BASIC METABOLIC SET (NA, K, CL, TCO2, BUN, CR, GLU, CA) (09/15/2017 5:25 AM) + +---------+ + + | Component | Value | Ref Range | Performed At | + +---------+ + + | GLUCOSE, PLASMA | 109 (H) | 70 - 99 mg/dL | [facility] | | (LAB) | | | SERVICES, CORE | + +---------+ + + | BUN, PLASMA (LAB) | 17 | 6 - 20 mg/dL | [facility] | | | | | SERVICES, CORE | + +---------+ + + | CREATININE PLASMA | 1.01 | 0.70 - 1.30 mg/dL | [facility] | | (LAB) | | | SERVICES, CORE | + +---------+ + + | EGFR - | >60 | >60 mL/min | [facility] | | [place] | | | SERVICES, CORE | + +---------+ + + | EGFR NON | >60 | >60 mL/min | [facility] | | -[place] | | | SERVICES, CORE | + +---------+ + + | SODIUM, PLASMA (LAB) | 139 | 136 - 145 mmol/L | [facility] | | | | | SERVICES, CORE | + +---------+ + + | POTASSIUM, PLASMA | 4.4 | 3.4 - 5.0 mmol/L | [facility] | | (LAB) | | | SERVICES, CORE | + +---------+ + + | CHLORIDE, PLASMA | 106 | 97 - 108 mmol/L | [facility] | | (LAB) | | | SERVICES, CORE | + +---------+ + + | TOTAL CO2, PLASMA | 24 | 21 - 32 mmol/L | [facility] | | (LAB) | | | SERVICES, CORE | + +---------+ + + | CALCIUM, PLASMA | 8.2 (L) | 8.6 - 10.2 mg/dL | [facility] | | (LAB) | | | SERVICES, CORE | + +---------+ + + | ANION GAP | 9 | 4 - 11 mmol/L | [facility] | | | | | SERVICES, CORE | + +---------+ + + | POTASSIUM CMNT | No Hemo | | [facility] | | | | | [...] | + + + + + | [facility] | [address] | [place] [address] | | | SERVICES, CORE | [address] | | | + + + + + CAPILLARY BLOOD GLUCOSE (NO CHG), POC (09/15/2017 12:05 AM) + +---------+ + + | Component | Value | Ref Range | Performed At | + +---------+ + + | BLOOD GLUCOSE, POC | 131 (H) | 70 - 99 mg/dL | [...] [facility] | [address] | [place], [place] | | | [facility] OF [place] | [address] | [address] | | | TESTS | | | | + + + + + CAPILLARY BLOOD GLUCOSE (NO CHG), POC (09/14/2017 5:43 PM) + +---------+ + + | Component | Value | Ref Range | Performed At | + +---------+ + + | BLOOD GLUCOSE, POC | 152 (H) | 70 - 99 mg/dL | [...] [facility] | [address] | [place], [place] | | | [facility] CARE | [address] | [address] | | | TESTS | | | | + + + + + MODIFIED BARIUM SWALLOWING (09/14/2017 3:00 PM) + + + | Narrative | Performed At | + + + | EXAM: Modified Barium Swallow HISTORY: GLUE BONE CRUSHER | [facility] | | recommended. Patient with problems swallowing. [...] Note | + + | Service Account, [employer] Res In Interface - 09/15/2017 10:05 AM PDT EXAM: Modified | | Barium Swallow HISTORY: GLUE BONE CRUSHER recommended. Patient with problems swallowing. Recent | [...] necessary, edited the report. I agree with e report as now presented. | | [...] 1:14 PM. | | + + + CAPILLARY BLOOD GLUCOSE (NO CHG), POC (09/14/2017 7:15 AM) + +---------+ + + | Component | Value | Ref Range | Performed At | + +---------+ + + | BLOOD GLUCOSE, POC | 112 (H) | 70 - 99 mg/dL | [facility] | | | | | [facility] | | | | | CARE TESTS | + +---------+ + + + + + + + | Performing | Address | City/State/Zipcode | Phone Number | | Organization | | | | + + + + + | [facility] | [address] | [place], [place] | | | [facility] CARE | [facility] | [address] | | | TESTS | | | | + + + + + CBC (HEMOGRAM) ONLY (09/14/2017 12:02 AM) + + + + + | Component | Value | Ref Range | Performed At | + + + + + | WHITE CELL COUNT | 17.20 (H) | 3.50 - 10.80 K/cu mm | [facility] | | | | | SERVICES, CORE | + + + + + | RED CELL COUNT | 3.12 (L) | 4.50 - 6.00 M/cu mm | [facility] | | | | | SERVICES, CORE | + + + + + | HEMOGLOBIN | 7.4 (L) | 13.5 - 17.5 g/dL | [facility] | | | | | SERVICES, CORE | + + + + + | HEMATOCRIT | 24.2 (L) | 41.0 - 53.0 % | [facility] | | | | | SERVICES, CORE | + + + + + | MCV | 77.6 (L) | 80.0 - 100.0 fL | [facility] | | | | | SERVICES, CORE | + + + + + | MCHC | 30.6 (L) | 32.0 - 36.0 g/dL | [facility] | | | | | SERVICES, CORE | + + + + + | RDW SD | 47.8 (H) | 35.1 - 46.3 fL | [facility] | | | | | SERVICES, CORE | + + + + + | PLATELET COUNT | 327 | 150 - 400 K/cu mm | [facility] | | | | | SERVICES, CORE | + + + + + | MPV | 10.3 | 9.7 - 12.3 fL | [facility] | | | | | SERVICES, CORE | + + + + + | NRBC% | 0.0 | 0.0 - 0.3 % | [facility] | | | | | SERVICES, CORE | + + + + + | NRBC# | 0.00 | 0.00 - 0.02 K/cu mm | [facility] | | | | | SERVICES, CORE | + + + + + + + | Specimen | + + | Blood - Blood | + + + + + | Narrative | Performed At | + + + | New reference ranges for MCV, MCHC, PLT, IG% and IG# effective | [facility] | | 08/04/2017 | LABORATORY | | | SERVICES, CORE | + + + + + + + + | Performing | Address | City/State/Zipcode | Phone Number | | Organization | | | | + + + + + | [facility] | [address] | [place] [address] | | | SERVICES, CORE | [address] | | | + + + + + PHOSPHORUS, PLASMA (09/14/2017 12:02 AM) + +-------+ + + | Component | Value | Ref Range | Performed At | + +-------+ + + | PHOSPHORUS, PLASMA | 3.8 | 2.4 - 4.7 mg/dL | [facility] | | (LAB) | | | [facility] | + +-------+ + + + + | Specimen | + + | Blood - Blood | + + + + + + + | Performing | Address | City/State/Zipcode | Phone Number | | Organization | | | | + + + + + | [facility] | [address] | [place] [address] | | | [facility] | [address] | | | + + + + + MAGNESIUM, PLASMA (09/14/2017 12:02 AM) + +-------+ + + | Component | Value | Ref Range | Performed At | + +-------+ + + | MAGNESIUM,PLASMA | 1.9 | 1.6 - 2.6 mg/dL | [facility] | | | | | SERVICES, [...] + + + + | [facility] | [address] | [place] [address] | | | SERVICES, CORE | [address] | | | + + + + + BASIC METABOLIC SET (NA, K, CL, TCO2, BUN, CR, GLU, CA) (09/14/2017 12:02 AM) + +---------+ + + | Component | Value | Ref Range | Performed At | + +---------+ + + | GLUCOSE, PLASMA | 144 (H) | 70 - 99 mg/dL | [facility] | | (LAB) | | | SERVICES, CORE | + +---------+ + + | BUN, PLASMA (LAB) | 17 | 6 - 20 mg/dL | [facility] | | | | | SERVICES, CORE | + +---------+ + + | CREATININE PLASMA | 1.10 | 0.70 - 1.30 mg/dL | [facility] | | (LAB) | | | [facility], CORE | + +---------+ + + | EGFR - | >60 | >60 mL/min | [facility] | | [place] | | | [facility], CORE | + +---------+ + + | EGFR NON | >60 | >60 mL/min | [facility] | | -[place] | | | SERVICES, CORE | + +---------+ + + | SODIUM, PLASMA (LAB) | 142 | 136 - 145 mmol/L | [facility] | | | | | SERVICES, CORE | + +---------+ + + | POTASSIUM, PLASMA | 4.5 | 3.4 - 5.0 mmol/L | [facility] | | (LAB) | | | SERVICES, CORE | + +---------+ + + | CHLORIDE, PLASMA | 108 | 97 - 108 mmol/L | [facility] | | (LAB) | | | SERVICES, CORE | + +---------+ + + | TOTAL CO2, PLASMA | 25 | 21 - 32 mmol/L | [facility] | | (LAB) | | | SERVICES, CORE | + +---------+ + + | CALCIUM, PLASMA | 8.1 (L) | 8.6 - 10.2 mg/dL | [facility] | | (LAB) | | | SERVICES, CORE | + +---------+ + + | ANION GAP | 9 | 4 - 11 mmol/L | [facility] | | | | | SERVICES, CORE | + +---------+ + + | POTASSIUM CMNT | No Hemo | | [facility] | | | | | [...] + + + + | [facility] | [address] [facility] | [place] [address] | | | [place] | [address] | | | + + + + + CAPILLARY BLOOD GLUCOSE (NO CHG), POC (09/13/2017 10:07 PM) + +---------+ + + | Component | Value | Ref Range | Performed At | + +---------+ + + | BLOOD GLUCOSE, POC | 136 (H) | 70 - 99 mg/dL | [facility] | | | | | [facility] | | | | | CARE TESTS | + +---------+ + + + + + + + | Performing | Address | City/State/Zipcode | Phone Number | | Organization | | | | + + + + + | [facility] | [address] | [place], [place] | | | [facility] OF CARE | [facility] | [address] | | | TESTS | | | | + + + + + PROCEDURE NOTE (09/13/2017 6:59 PM)CAPILLARY BLOOD GLUCOSE (NO CHG), POC (09/13/2017 6:33 PM) + +---------+ + + | Component | Value | Ref Range | Performed At | + +---------+ + + | BLOOD GLUCOSE, POC | 127 (H) | 70 - 99 mg/dL | [facility] | | | | | [facility] | | | | | CARE TESTS | + +---------+ + + + + + + + | Performing | Address | City/State/Zipcode | Phone Number | | Organization | | | | + + + + + | [facility] | [address] | [place], [place] | | | [facility] OF [facility] | [address] | [address] | | | TESTS | | | | + + + + + CBC (HEMOGRAM) ONLY (09/13/2017 4:25 PM) + + + + + | Component | Value | Ref Range | Performed At | + + + + + | WHITE CELL COUNT | 15.26 (H) | 3.50 - 10.80 K/cu mm | [facility] | | | | | SERVICES, CORE | + + + + + | RED CELL COUNT | 3.28 (L) | 4.50 - 6.00 M/cu mm | [facility] | | | | | SERVICES, CORE | + + + + + | HEMOGLOBIN | 7.7 (L) | 13.5 - 17.5 g/dL | [facility] | | | | | SERVICES, CORE | + + + + + | HEMATOCRIT | 25.5 (L) | 41.0 - 53.0 % | [facility] | | | | | SERVICES, CORE | + + + + + | MCV | 77.7 (L) | 80.0 - 100.0 fL | [facility] | | | | | SERVICES, CORE | + + + + + | MCHC | 30.2 (L) | 32.0 - 36.0 g/dL | [facility] | | | | | SERVICES, CORE | + + + + + | RDW SD | 47.3 (H) | 35.1 - 46.3 fL | [facility] | | | | | SERVICES, CORE | + + + + + | PLATELET COUNT | 314 | 150 - 400 K/cu mm | [facility] | | | | | SERVICES, CORE | + + + + + | MPV | 10.4 | 9.7 - 12.3 fL | [facility] | | | | | SERVICES, CORE | + + + + + | NRBC% | 0.0 | 0.0 - 0.3 % | [facility] | | | | | SERVICES, CORE | + + + + + | NRBC# | 0.00 | 0.00 - 0.02 K/cu mm | [facility] | | | | | SERVICES, CORE | + + + + + + + | Specimen | + + | Blood - Blood | + + + + + | Narrative | Performed At | + + + | New reference ranges for MCV, MCHC, PLT, IG% and IG# effective | [facility] | | 08/04/2017 | LABORATORY | | | SERVICES, CORE | + + + + + + + + | Performing | Address | City/State/Zipcode | Phone Number | | Organization | | | | + + + + + | [facility] | [address] | [place] [address] | | | SERVICES, [place] | [address] | | | + + + + + RENAL FUNCTION SET (NA,K,CL,CO2,BUN,CREAT,GLUC,CA,PHOS,ALB ) (09/13/2017 4:25 PM) + +---------+ + + | Component | Value | Ref Range | Performed At | + +---------+ + + | GLUCOSE, PLASMA | 116 (H) | 70 - 99 mg/dL | [facility] | | (LAB) | | | [facility] | + +---------+ + + | BUN, [...] >60 mL/min | [facility] | | [place] | | | SERVICES, CORE | + +---------+ + + | EGFR NON | >60 | >60 mL/min | [facility] | | -[place] | | | SERVICES, CORE | + [...] LABORATORY | | (LAB) | | | [facility] | + +---------+ + + | TOTAL CO2, PLASMA | 25 | 21 - 32 mmol/L | [facility] | | (LAB) | | | [place] | + +---------+ + + | CALCIUM, PLASMA | 7.4 (L) | 8.6 - 10.2 mg/dL | [facility] | | (LAB) | | | [place] | + +---------+ + + | CALCIUM(ALB [...] [facility] | | | | | [facility] | + +---------+ + + | ANION GAP | 7 | 4 - 11 mmol/L | [facility] | | | | | SERVICES, CORE | + +---------+ + + | ANION GAP(ALB | 11 | 4 - 11 mmol/L | [facility] | | CORRECTED) | | | SERVICES, CORE | + +---------+ + + + + | Specimen | + + | Blood - Blood | + + + + + | Narrative | Performed At | + + + | GFR is estimated using the MDRD equation recommended by the | [facility] | | National Kidney Disease Education Program. [...] | + + + + + | [facility] | [address] | [place] [address] | | | SERVICES, CORE | [address] | | | + + + + + X-RAY PORTABLE CHEST 1 VIEW (09/13/2017 3:54 PM) + + + | Narrative | Performed At | + + + | EXAM: CA CHEST 1 VIEW HISTORY: verify central line [...] Preliminary: Eduin Leon MD Dictation initiated: Eduin Otoole | Sydnie Leon MD 09/13/2017 3:33 PM | | + + + + + | Procedure Note | + + | Service Account, Radiant Res In Interface - 09/13/2017 3:54 PM PDT EXAM: CA CHEST 1 | | VIEW HISTORY: verify [...] Leon MD Dictation initiated: Eduin Osorio | | MD Carolyn 09/13/2017 3:33 PM | | | |IMPRESSION: [...] | | | + +---------+ + + CAPILLARY BLOOD GLUCOSE (NO CHG), POC (09/13/2017 2:47 PM) + +---------+ + + | Component | Value | Ref Range | Performed At | + +---------+ + + | BLOOD GLUCOSE, POC | 121 (H) | 70 - 99 mg/dL | [facility] | | | | | [facility] | | | | | CARE TESTS | + +---------+ + + + + + + + | Performing | Address | City/State/Zipcode | Phone Number | | Organization | | | | + + + + + | [facility] | [address] | [place], [place] | | | [facility] POINT OF CARE | [address] | [address] | | | TESTS | | | | + + + + + PROCEDURE NOTE (09/13/2017 2:30 PM) [...] Young MD First | | | Asst.: Mandy Baeza MD Anesthesia: General Estimated blood | | [...] bleeding was controlled with the argon beam mergers and acquisitions consultant. Dr. Young | | | was consulted [...] case. Alex Rubin MD | | | Mri Technologist Department of Urology [facility] | | | [place] | | + + + ABG-FULL ABL, POC (09/13/2017 2:05 PM) + + + + + | Component | Value | Ref Range | Performed At | + + + + + | PH ARTERIAL, POC | 7.43 | 7.37 - 7.44 | [facility] | | | | | [facility] OF | | | | | CARE TESTS | + + + + + | PO2 ARTERIAL, POC | 129 (H) | 72 - 104 mmHg | [facility] | | | | | [facility] OF | | | | | CARE TESTS | + + + + + | PCO2 ARTERIAL, POC | 42 | 32 - 43 mmHg | [facility] | | | | | QUIN, POINT OF | | | | | CARE TESTS | + + + + + | TOTAL HEMOGLOBIN, | 7.4 (L) | 13.5 - 17.5 g/dL | [facility] | | POC | | | QUIN, POINT OF | | | | | CARE TESTS | + + + + + | O2 SAT ARTERIAL, POC | 98.5 (H) | 92.0 - 98.0 % | [facility] | | | | | QUIN, POINT OF | | | | | CARE TESTS | + + + + + | OXYHEMOGLOBIN, POC | 96.5 | 94.0 - 100 % | [facility] | | | | | QUIN, POINT OF | | | | | CARE TESTS | + + + + + | HEMATOCRIT, POC | 22.6 (L) | 41.0 - 53.0 % | [facility] | | | | | QUIN, POINT OF | | | | | CARE TESTS | + + + + + | POTASSIUM, POC | 4.0 | 3.4 - 5.0 mmol/L | [facility] | | | | | QUIN, POINT OF | | | | | CARE TESTS | + + + + + | SODIUM, POC | 142 | 134 - 143 mmol/L | [facility] | | | | | QUIN POINT [...] 0.9 | 0.0 - 1.9 % | [facility] | | | | | [facility] OF | | | | | CARE TESTS | + + + + + | PAT TEMP ART, POC | 37.0 | | [facility] | | | | | QU[facility] POINT [...] + + + + | [facility] | [address] | [place], [place] | | | [facility] POINT OF CARE | [facility] | [address] | | | TESTS | | | | + + + + + ABG-FULL ABL, POC (09/13/2017 1:12 PM) + + + + + | Component | Value | Ref Range | Performed At | + + + + + | PH ARTERIAL, POC | 7.42 | 7.37 - 7.44 | [facility] | | | | | [facility] OF | | | | | CARE TESTS | + + + + + | PO2 ARTERIAL, POC | 147 (H) | 72 - 104 mmHg | [facility] | | | | | QU[facility] POINT OF | | | | | CARE TESTS | + + + + + | PCO2 ARTERIAL, POC | 40 | 32 - 43 mmHg | [facility] | | | | | QUIN, POINT OF | | | | | CARE TESTS | + + + + + | TOTAL HEMOGLOBIN, | 7.5 (L) | 13.5 - 17.5 g/dL | [facility] | | POC | | | QUIN, POINT OF | | | | | CARE TESTS | + + + + + | O2 SAT ARTERIAL, POC | 99.2 (H) | 92.0 - 98.0 % | [facility] | | | | | QUIN, POINT OF | | | | | CARE TESTS | + + + + + | OXYHEMOGLOBIN, POC | 97.1 | 94.0 - 100 % | [facility] | | | | | QUIN, POINT OF | | | | | CARE TESTS | + + + + + | HEMATOCRIT, POC | 23.0 (L) | 41.0 - 53.0 % | [facility] | | | | | QUIN, POINT OF | | | | | CARE TESTS | + + + + + | POTASSIUM, POC | 4.0 | 3.4 - 5.0 mmol/L | [facility] | | | | | QUIN, POINT OF | | | | | CARE TESTS | + + + + + | SODIUM, POC | 142 | 134 - 143 mmol/L | [facility] | | | | | QUIN, POINT OF | | | | | CARE TESTS | + + + + + | ALINE IONIZED CA, POC | 1.13 (L) | 1.14 - 1.32 mmol/L | [facility] | | | | | QUIN, POINT OF | | | | | CARE TESTS | + + + + + | CHLORIDE, POC | 108 | 97 - 108 mmol/L | [facility] | | | | | QUIN, POINT OF | | | | | CARE TESTS | + + + + + | GLUCOSE, POC | 129 (H) | 70 - 99 mg/dL | [facility] | | | | | QUIN, POINT OF | | | | | CARE TESTS | + + + + + | HCO3 ARTERIAL, POC | 25.6 | 21 - 28 mmol/L | [facility] | | | | | QUIN, POINT OF | | | | | CARE TESTS | + + + + + | BASE EXCESS | 1.0 | | [facility] | | ARTERIAL, POC | | | QUIN, POINT OF | | | | | CARE TESTS | + + + + + | LACTATE ARTERIAL, | 1.1 | 0.5 - 1.6 mmol/L | [facility] | | POC | | | QUIN, POINT OF | | | | | CARE TESTS | + + + + + | METHEMOGLOBIN, POC | 1.0 | 0.0 - 1.9 % | [facility] | | | | | [facility] | | | | | CARE TESTS | + + + + + | PAT TEMP ART, POC | 37.0 | | [facility] | | | | | [facility] [...] + + + + | [facility] | [address] | [place], [place] | | | [place], POINT OF CARE | [facility] | [address] | | | TESTS | | | | + + + + + ABG-FULL ABL, POC (09/13/2017 12:15 PM) + + + + + | Component | Value | Ref Range | Performed At | + + + + + | PH ARTERIAL, POC | 7.40 | 7.37 - 7.44 | [facility] | | | | | [facility] | | | | | CARE TESTS | + + + + + | PO2 ARTERIAL, POC | 172 (H) | 72 - 104 mmHg | [facility] | | | | | QU[facility] POINT OF | | | | | CARE TESTS | + + + + + | PCO2 ARTERIAL, POC | 40 | 32 - 43 mmHg | [facility] | | | | | QUIN, POINT OF | | | | | CARE TESTS | + + + + + | TOTAL HEMOGLOBIN, | 8.5 (L) | 13.5 - 17.5 g/dL | [facility] | | POC | | | QUIN, POINT OF | | | | | CARE TESTS | + + + + + | O2 SAT ARTERIAL, POC | 100.0 (H) | 92.0 - 98.0 % | [facility] | | | | | QUIN, POINT OF | | | | | CARE TESTS | + + + + + | OXYHEMOGLOBIN, POC | 98.0 | 94.0 - 100 % | [facility] | | | | | QUIN, POINT OF | | | | | CARE TESTS | + + + + + | HEMATOCRIT, POC | 26.1 (L) | 41.0 - 53.0 % | [facility] | | | | | QUIN, POINT OF | | | | | CARE TESTS | + + + + + | POTASSIUM, POC | 4.2 | 3.4 - 5.0 mmol/L | [facility] | | [...] + | ALINE IONIZED CA, POC | 1.17 | 1.14 - 1.32 mmol/L | [facility] | | | | | QUIN, POINT OF | | | | | CARE TESTS | + + + + + | CHLORIDE, POC | 106 | 97 - 108 mmol/L | [facility] | | | | | QUIN, POINT OF | | | | | CARE TESTS | + + + + + | GLUCOSE, POC | 171 (H) | 70 - 99 mg/dL | [facility] | | | | | QUIN, POINT OF | | | | | CARE TESTS | + + + + + | HCO3 ARTERIAL, POC | 24.7 | 21 - 28 mmol/L | [facility] | | | | | QUIN, POINT OF | | | | | CARE TESTS | + + + + + | BASE EXCESS | -0.1 | | [facility] | | ARTERIAL, POC | | | QUIN, POINT OF | | | | | CARE TESTS | + + + + + | LACTATE ARTERIAL, | 1.5 | 0.5 - 1.6 mmol/L | [facility] | | POC | | | QUIN, POINT OF | | | | | CARE TESTS | + + + + + | METHEMOGLOBIN, POC | 0.7 | 0.0 - 1.9 % | [facility] | | | | | [...] + + + + | [facility] | [address] | [place], [place] | | | [facility] OF CARE | [address] | [address] | | | TESTS | | | | + + + + + SURGICAL PATHOLOGY (09/13/2017 12:02 PM) + + + + + | Component | Value | Ref Range | Performed At | + + + + + | Clinical History | N28.89 (ICD-10-CM) - | | [facility] | | | 593.9 (ICD-9-CM) - RENAL | | OF PATHOLOGY | | | MASS | | | + + + + + | Final Pathologic | A. Right kidney and | | [facility] | | Diagnosis | adrenal [...] Surgical Pathology | | | | | FellowPhilipervin Batista, | | | | | , [...] REPORTS | KIDNEY: | | [facility] | | | Nephrectomy (Kidney [...] are 6 specimens | | [facility] | | | fresh in containers | | OF PATHOLOGY | | | labeled with the | | | | | patient's name (initials | | | | | DG) and medical record | | | | | number [id number]. | | | | | Kidney, Right [...] | =blackSubmitted: | | | | | Apprentice Technician A1: Renal | | | | | [...] 9 | | | | | o'clock. Apprentice Technician | | | | | sections are [...] | Frozen section | | [facility] | | only - Final [...] | ANCILLARY | Analyte specific | | [facility] | | INFORMATION | reagents are [...] | | | determined by [facility] | | | | | laboratories. [...] | + + + + + | [facility] | [address] | [place] [address] | | | PATHOLOGY | [address] | | | + + + + + PRODUCT - RED CELLS LEUKOREDUCED (09/13/2017 11:39 AM) + + + + + | Component | Value | Ref Range | Performed At | + + + + + | PRODUCT DESCRIPTION | -1 RED BLOOD CELL | | [facility] | | | ADENINE-SALINE ADDED | | SERVICES, | | | LEUKOCYTE | | TRANSFUSION | | | | | MEDICINE | + + + + + | PRODUCT UNIT # | [id number] | | [facility] | | | [...] + + + | EXPIRATION DATE | [id number] | | [facility] | | | [...] + + | BLOOD PRODUCT CODE | [id number] | | [facility] | | | | | SERVICES, | | | | | TRANSFUSION | | | | | MEDICINE | + + + + + + + + + + | Performing | Address | City/State/Zipcode | Phone Number | | Organization | | | | + + + + + | [facility] | [address] | [place] [address] | | | SERVICES, | [address] | | | | TRANSFUSION MEDICINE | | | | + + + + + PRODUCT - RED CELLS LEUKOREDUCED (09/13/2017 11:38 AM) + + + + + | Component | Value | Ref Range | Performed At | + + + + + | PRODUCT DESCRIPTION | -1 RED BLOOD CELL | | [facility] | | | ADENINE-SALINE ADDED | | SERVICES, | | | LEUKOCYTE | | TRANSFUSION | | | | | MEDICINE | + + + + + | PRODUCT UNIT # | [id number] | | [facility] | | | [...] + + + | EXPIRATION DATE | [id number] | | [facility] | | | [...] + + | BLOOD PRODUCT CODE | [id number] | | [facility] | | | | | SERVICES, | | | | | TRANSFUSION | | | | | MEDICINE | + + + + + + + + + + | Performing | Address | City/State/Zipcode | Phone Number | | Organization | | | | + + + + + | [facility] | [address] | [place] [address] | | | SERVICES, | [address] | | | | TRANSFUSION MEDICINE | | | | + + + + + VINI-DANA MON (09/13/2017 11:30 AM) + + + + + | Component | Value | Ref Range | Performed At | + + + + + | PH ARTERIAL, POC | 7.42 | 7.37 - 7.44 | [facility] | | | | | QUIN, POINT OF | | | | | CARE TESTS | + + + + + | PO2 ARTERIAL, POC | 165 (H) | 72 - 104 mmHg | [facility] | | | | | QUIN, POINT OF | | | | | CARE TESTS | + + + + + | PCO2 ARTERIAL, POC | 38 | 32 - 43 mmHg | [facility] | | | | | QUIN, POINT OF | | | | | CARE TESTS | + + + + + | TOTAL HEMOGLOBIN, | 8.5 (L) | 13.5 - 17.5 g/dL | [facility] | | POC | | | QUIN, POINT OF | | | | | CARE TESTS | + + + + + | O2 SAT ARTERIAL, POC | 99.1 (H) | 92.0 - 98.0 % | [facility] | | | | | QUIN, POINT OF | | | | | CARE TESTS | + + + + + | OXYHEMOGLOBIN, POC | 97.3 | 94.0 - 100 % | [facility] | | | | | QUIN, POINT OF | | | | | CARE TESTS | + + + + + | HEMATOCRIT, POC | 26.1 (L) | 41.0 - 53.0 % | [facility] | | | | | QUIN POINT OF | | | | | CARE TESTS | + + + + + | POTASSIUM, POC | 4.2 | 3.4 - 5.0 mmol/L | [facility] | | | | | QUIN POINT OF | | | | | CARE TESTS | + + + + + | SODIUM, POC | 141 | 134 - 143 mmol/L | [facility] | | | | | QUIN POINT OF | | | | | CARE TESTS | + + + + + | ALINE IONIZED CA, POC | 1.16 | 1.14 - 1.32 mmol/L | [facility] | | | | | QUIN, POINT OF | | | | | CARE TESTS | + + + + + | CHLORIDE, POC | 106 | 97 - 108 mmol/L | [facility] | | | | | QUIN, POINT OF | | | | | CARE TESTS | + + + + + | GLUCOSE, POC | 150 (H) | 70 - 99 mg/dL | [facility] | | | | | QUIN, POINT OF | | | | | CARE TESTS | + + + + + | HCO3 ARTERIAL, POC | 25.1 | 21 - 28 mmol/L | [facility] | | | | | QUIN, POINT OF | | | | | CARE TESTS | + + + + + | BASE EXCESS | 0.7 | | [facility] | | ARTERIAL, POC | | | QUIN, POINT OF | | | | | CARE TESTS | + + + + + | LACTATE ARTERIAL, | 1.5 | 0.5 - 1.6 mmol/L | [facility] | | POC | | | QUIN, POINT OF | | | | | CARE TESTS | + + + + + | METHEMOGLOBIN, POC | 0.7 | 0.0 - 1.9 % | [facility] | [address] | [place], [place] | | | [facility] OF CARE | [address] | [address] | | | TESTS | | | | + + + + + VINI-DANA MON (09/13/2017 9:39 AM) + + + + + | Component | Value | Ref Range | Performed At | + + + + + | PH ARTERIAL, POC | 7.44 | 7.37 - 7.44 | [facility] | | | | | QUIN, POINT OF | | | | | CARE TESTS | + + + + + | PO2 ARTERIAL, POC | 206 (H) | 72 - 104 mmHg | [facility] | | | | | QUIN, POINT OF | | | | | CARE TESTS | + + + + + | PCO2 ARTERIAL, POC | 38 | 32 - 43 mmHg | [facility] | | | | | QUIN, POINT OF | | | | | CARE TESTS | + + + + + | TOTAL HEMOGLOBIN, | 8.8 (L) | 13.5 - 17.5 g/dL | [facility] | | POC | | | QUIN, POINT OF | | | | | CARE TESTS | + + + + + | O2 SAT ARTERIAL, POC | 99.3 (H) | 92.0 - 98.0 % | [facility] | | | | | QUIN, POINT OF | | | | | CARE TESTS | + + + + + | OXYHEMOGLOBIN, POC | 97.6 | 94.0 - 100 % | [facility] | | | | | QUIN, POINT OF | | | | | CARE TESTS | + + + + + | HEMATOCRIT, POC | 27.1 (L) | 41.0 - 53.0 % | [facility] | | | | | QUIN, POINT OF | | | | | CARE TESTS | + + + + + | POTASSIUM, POC | 4.4 | 3.4 - 5.0 mmol/L | [facility] | | | | | QUIN, POINT OF | | | | | CARE TESTS | + + + + + | SODIUM, POC | 141 | 134 - 143 mmol/L | [facility] | | | | | QUIN, POINT OF | | | | | CARE TESTS | + + + + + | ALINE IONIZED CA, POC | 1.18 | 1.14 - 1.32 mmol/L | [facility] | | | | | QUIN, POINT OF | | | | | CARE TESTS | + + + + + | CHLORIDE, POC | 105 | 97 - 108 mmol/L | [facility] | | | | | QUIN POINT OF | | | | | CARE TESTS | + + + + + | GLUCOSE, POC | 117 (H) | 70 - 99 mg/dL | [facility] | | | | | QUIN, POINT OF | | | | | CARE TESTS | + + + + + | HCO3 ARTERIAL, POC | 25.9 | 21 - 28 mmol/L | [facility] | | | | | QUIN, POINT OF | | | | | CARE TESTS | + + + + + | BASE EXCESS | 1.7 | | [facility] | | [...] + + + | METHEMOGLOBIN, POC | 0.7 | 0.0 - 1.9 % | [facility] | [address] | [place], [place] | | | [facility] POINT OF [facility] | [address] | [address] | | | TESTS | | | | + + + + + CONFIRMATORY ABO/RH (09/13/2017 6:00 [...] [facility] | [address] | [place] [address] | | | SERVICES, | [address] | | | | TRANSFUSION MEDICINE | | | | + + + + + CAPILLARY BLOOD GLUCOSE (NO CHG), POC (09/13/2017 5:57 AM) + +---------+ + + | Component | Value | Ref Range | Performed At | + +---------+ + + | BLOOD GLUCOSE, POC | 121 (H) | 70 - 99 mg/dL | [facility] | | | | | [facility] | | | | | CARE TESTS | + +---------+ + + + + + + + | Performing | Address | City/State/Zipcode | Phone Number | | Organization | | | | + + + + + | [facility] | [address] | [place], [place] | | | [place] [facility] | [address] | [address] | | | TESTS | | | [...] + | | | + + + in this encounter Visit Diagnoses + + | Diagnosis | + + | Right renal mass - Primary | + + | Unspecified disorder of kidney and ureter | + + | Dysphagia, unspecified type | + + | Type 2 diabetes mellitus with complication, with long-term current use of insulin (HCC) | + + | Essential hypertension | + + | Gastroesophageal reflux disease | + + | Esophageal reflux | + + | Status post nephrectomy | + + | Cochlear implant in place | + + | Other postprocedural status | + + | Acute blood loss anemia | + + | Acute posthemorrhagic anemia | + + Admitting Diagnoses + + | Diagnosis | + + | Other specified disorders of kidney and ureter - N28.89 (ICD-10-CM) - 593.9 (ICD-9-CM) - | | RENAL MASS | + + Administered Medications + +--------+ +--------+------+------+ | Medication Order | MAR | Action | Dose | Rate | Site | | | Action | Date | | | | + +--------+ +--------+------+------+ | acetaminophen (TYLENOL) tablet | Given | | 650 mg | | | | 650 mg 650 mg, oral, EVERY 4 | | 8 08:39 | | | | | HOURS NEEDED, Starting [facility] | | PDT | | | | | 09/15/17 at 0631, Until Sat | | | | | | | 09/17/17 at 1832, mild pain | | | | | | + +--------+ +--------+------+------+ +---+---+ | | | +---+---+ + +-------+ +-------+---+---+ | aspirin chewable tablet 81 mg | Given | | 81 mg | | | | 81 mg, oral, DAILY, First dose on | | 8 08:38 | | | | | 09/14/17 at 1245, Until | | PDT | | | | | Discontinued | | | | | | + +-------+ +-------+---+---+ +-------+ +-------+---+---+ | Given | | 81 mg | | | | | 8 08:37 | | | | | | PDT | | | | +-------+ +-------+---+---+ | Given | | 81 mg | | | | | 8 08:19 | | | | | | PDT | | | | +-------+ +-------+---+---+ + +---+ | | | + +---+ | dextrose 50 % in water IV 25 mL | | | 25 mL, intravenous, NEEDED, | | | Starting 09/13/17 at 1644, | | | Until 09/17/17 at 1832, CBG | | | less than 70 mg/dL if patient | | | unable to take PO, per Adult | | | Hypoglycemia Protocol | | + +---+ | | | + +---+ | glucagon (GLUCAGEN) injection 1 | | | mg 1 mg, intramuscular, | | | NEEDED, Starting 09/13/17 at | | | 1644, Until 09/17/17 at 1832, | | | CBG less than 70 mg/dL per Adult | | | Hypoglycemia Protocol | | + +---+ | | | + +---+ | glucose chewable tablet 16 g | | | 16 g, oral, NEEDED, Starting | | | 09/13/17 at 1644, Until Sat | | | 09/17/17 at 1832, CBG less than 70 | | | mg/dL per Adult Hypoglycemia | | | Protocol | | + +---+ | | | + +---+ + +-------+ +--------+---+---------+ | heparin injection 5,000 Units | Given | | 5,000 | | Abdomen | | 5,000 Units, subcutaneous, | | 8 07:05 | Units | | | | PREPROCEDURE ONCE, 1 dose, | | PDT | | | | | Starting 09/13/17 at 0534, | | | | | | | Until Discontinued | | | | | | + +-------+ +--------+---+---------+ +---+---+ | | | +---+---+ + +-------+ +--------+---+---------+ | heparin injection 5,000 Units | Given | | 5,000 | | Abdomen | | 5,000 Units, subcutaneous, EVERY | | 8 13:52 | Units | | | | 8 HOURS, First dose on Tue | | PDT | | | | | 09/13/17 at 1830, Until | | | | | | | Discontinued | | | | | | + +-------+ +--------+---+---------+ +-------+ +--------+---+---------+ | Given | | 5,000 | | Abdomen | | | 8 22:54 | Units | | | | | PDT | | | | +-------+ +--------+---+---------+ | Given | | 5,000 | | Abdomen | | | 8 06:31 | Units | | | | | PDT | | | | +-------+ +--------+---+---------+ + +---+ | | | + +---+ | heparin injection 1 dose, | | | Starting 09/13/17 at 0537, | | | Until 09/13/17 at 1744 | | + +---+ | | | + +---+ | HYDROmorphone (DILAUDID) | | | injection 0.2-0.6 mg 0.2-0.6 mg, | | | intravenous, EVERY 2 HOURS | | | NEEDED, Starting [facility] 09/15/17 at | | | 0632, Until 09/17/17 at 1832, | | | severe pain | | + +---+ | | | + +---+ + +---------+ +---+---+---+ | HYDROmorphone 0.5 mg/mL MATERIAL CARRIER | New Bag | | | | | | (ADULT STANDARD DOSE) in 0.9 % | | 8 15:31 | | | | | NaCl MATERIAL CARRIER Dose: 0.2 mg, Lockout | | PDT | | | | | Interval: 7 Minutes | | | | | | + +---------+ +---+---+---+ + + +---+---+---+ | Rate/Dose Verify | | | | | | | 8 08:00 | | | | | | PDT | | | | + + +---+---+---+ +---+---+ | | | +---+---+ + + + +---+---+---+ | HYDROmorphone 0.5 mg/mL MATERIAL CARRIER | Rate/Dos | | | | | | (ADULT STANDARD DOSE) in 0.9 % | e Verify | 8 23:29 | | | | | NaCl MATERIAL CARRIER Dose: 0.1 mg, Lockout | | PDT | | | | | Interval: 7 Minutes | | | | | | + + + +---+---+---+ + + +---+---+---+ | Rate/Dose Verify | | | | | | | 8 04:30 | | | | | | PDT | | | | + + +---+---+---+ | Rate/Dose Verify | | | | | | | 8 08:41 | | | | | | PDT | | | | + + +---+---+---+ + +---+ | | | + +---+ | HYDROmorphone in NS 25 mg/50 mL | | | (0.5 mg/mL) sPCA 1 dose, | | | Starting 09/13/17 at 1527, | | | Until 09/13/17 at 1531 | | + +---+ | | | + +---+ + +-------+ +---------+---+---------+ | insulin lispro (HUMALOG) | Given | | 2 Units | | Abdomen | | injection subcutaneous, FOUR | | 8 16:47 | | | | | TIMES DAILY, First dose on e | | PDT | | | | | 09/13/17 at 1800, Until | | | | | | | Discontinued | | | | | | + +-------+ +---------+---+---------+ +-------+ +---------+---+ + | Given | | 1 Units | | Left Arm | | | 8 22:53 | | | | | | PDT | | | | +-------+ +---------+---+ + | Given | | 4 Units | | Abdomen | | | 8 08:37 | | | | | | PDT | | | | +-------+ +---------+---+ + +---+---+ | | | +---+---+ + +---------+ + + +---+ | lactated Ringers IV 10 mL/hr, | New Bag | | 10 mL/hr | 10 mL/hr | | | intravenous, PROCEDURE | | 8 05:59 | | | | | CONTINUOUS, Starting 09/13/17 | | PDT | | | | | at 0545, Until e 09/13/17 at | | | | | | | 1555 | | | | | | + +---------+ + + +---+ +---+---+ | | | +---+---+ + + + +-------+-------+---+ | lactated Ringers IV 100 mL/hr, | Rate/Dos | | 100 | 100 | | | intravenous, CONTINUOUS, | e Verify | 8 08:00 | mL/hr | mL/hr | | | Starting 09/13/17 at 1545, | | PDT | | | | | Until 09/14/17 at 1012 | | | | | | + + + +-------+-------+---+ + + +-------+-------+---+ | Rate/Dose Verify | | 100 | 100 | | | | 8 09:00 | mL/hr | mL/hr | | | | PDT | | | | + + +-------+-------+---+ | Rate/Dose Verify | | 100 | 100 | | | | 8 10:00 | mL/hr | mL/hr | | | | PDT | | | | + + +-------+-------+---+ +---+---+ | | | +---+---+ + +---------+ +--------+---+---+ | lactated Ringers IV 500 mL, | New Bag | | 500 mL | | | | intravenous, ONCE, 1 dose, Wed | | 8 04:39 | | | | | 09/14/17 at 0200 | | PDT | | | | + +---------+ +--------+---+---+ +---+---+ | | | +---+---+ + +---------+ +-----+---+---+ | magnesium sulfate in water IV | New Bag | | 2 g | | | | (RTU) 2 g 2 g, intravenous, | | 8 02:27 | | | | | ONCE, 1 dose, 09/14/17 at 0215 | | PDT | | | | + +---------+ +-----+---+---+ +---+---+ | | | +---+---+ + +---------+ +-----+---+---+ | magnesium sulfate in water IV | New Bag | | 2 g | | | | (RTU) 2 g 2 g, intravenous, | | 8 06:38 | | | | | ONCE, 1 dose, 09/16/17 at 0645 | | PDT | | | | + +---------+ +-----+---+---+ +---+---+ | | | +---+---+ + +-------+ +-------+---+---+ | omeprazole (PRILOSEC) capsule | Given | | 20 mg | | | | 20 mg 20 mg, oral, BEFORE | | 8 07:17 | | | | | BREAKFAST, First dose on Tue | | PDT | | | | | 09/14/17 at 0630, Until | | | | | | | Discontinued | | | | | | + +-------+ +-------+---+---+ +---+---+ | | | +---+---+ + +-------+ +-------+---+---+ | omeprazole (PRILOSEC) oral | Given | | 20 mg | | | | suspension (compound) 20 mg 20 | | 8 08:36 | | | | | mg, oral, BEFORE BREAKFAST, First | | PDT | | | | | dose on [facility] 09/15/17 at 0715, | | | | | | | Until Discontinued | | | | | | + +-------+ +-------+---+---+ +-------+ +-------+---+---+ | Given | | 20 mg | | | | | 8 08:36 | | | | | | PDT | | | | +-------+ +-------+---+---+ | Given | | 20 mg | | | | | 8 06:32 | | | | | | PDT | | | | +-------+ +-------+---+---+ +---+---+ | | | +---+---+ + +-------+ +------+---+---+ | ondansetron ODT (ZOFRAN ODT) | Given | | 4 mg | | | | tablet 4 mg 4 mg, oral, EVERY 12 | | 8 07:17 | | | | | HOURS NEEDED, Starting Tue | | PDT | | | | | 09/13/17 at 1716, Until Sat | | | | | | | 09/17/17 at 1832, nausea/vomiting, | | | | | | | first line | | | | | | + +-------+ +------+---+---+ +---+---+ | | | +---+---+ + +-------+ +------+---+---+ | oxyCODONE (immediate release) | Given | | 5 mg | | | | (ROXICODONE) liquid 5-15 mg 5-15 | | 8 18:48 | | | | | mg, oral, EVERY 4 HOURS | | PDT | | | | | NEEDED, Starting [facility] 09/15/17 at | | | | | | | 0852, Until 09/17/17 at 1832, | | | | | | | moderate pain | | | | | | + +-------+ +------+---+---+ +-------+ +-------+---+---+ | Given | | 10 mg | | | | | 8 22:52 | | | | | | PDT | | | | +-------+ +-------+---+---+ | Given | | 10 mg | | | | | 8 11:27 | | | | | | PDT | | | | +-------+ +-------+---+---+ +---+---+ | | | +---+---+ + +-------+ + +---+---+ | potassium, sodium phosphates | Given | | 1 packet | | | | (NEUTRA-PHOS, PHOS-NAK) | | 8 09:34 | | | | | 280-160-250 mg packet 1 packet 1 | | PDT | | | | | packet, oral, FOUR TIMES DAILY, | | | | | | | 2 doses, First dose on Fri | | | | | | | 09/16/17 at 0900, Last dose on Fri | | | | | | | 09/16/17 at 1400 | | | | | | + +-------+ + +---+---+ +-------+ + +---+---+ | Given | | 1 packet | | | | | 8 13:52 | | | | | | PDT | | | | +-------+ + +---+---+ +---+---+ | | | +---+---+ + +-------+ +---------+---+---+ | potassium, sodium phosphates | Given | | 2 | | | | (NEUTRA-PHOS, PHOS-NAK) | | 8 08:19 | packets | | | | 280-160-250 mg packet 2 packet 2 | | PDT | | | | | packet, oral, ONCE, 1 dose, Sat | | | | | | | 09/17/17 at 0800 | | | | | | + +-------+ +---------+---+---+ +---+---+ | | | +---+---+ + +-------+ + +---+---+ | senna-docusate (SENOKOT S) | Given | | 1 tablet | | | | 8.6-50 mg 1 tablet 1 tablet, | | 8 21:45 | | | | | oral, TWICE DAILY, First dose on | | PDT | | | | | 09/13/17 at 2100, Until | | | | | | | Discontinued | | | | | | + +-------+ + +---+---+ +-------+ + +---+---+ | Given | | 1 tablet | | | | | 8 08:37 | | | | | | PDT | | | | +-------+ + +---+---+ | Given | | 1 tablet | | | | | 8 20:01 | | | | | | PDT | | | | +-------+ + +---+---+ +---+---+ | | | +---+---+ + +-------+ +-------+---+---+ | simvastatin (ZOCOR) tablet 40 | Given | | 40 mg | | | | mg 40 mg, oral, EVERY EVENING, | | 8 21:19 | | | | | First dose on Tue09/13/17 at | | PDT | | | | | 2100, Until Discontinued | | | | | | + +-------+ +-------+---+---+ +-------+ +-------+---+---+ | Given | | 40 mg | | | | | 8 21:44 | | | | | | PDT | | | | +-------+ +-------+---+---+ | Given | | 40 mg | | | | | 8 20:01 | | | | | | PDT | | | | +-------+ +-------+---+---+ +---+---+ | | | +---+---+ + +---------+ +---------+---+---+ | sodium phosphate IV 30 mmol 30 | New Bag | | 30 mmol | | | | mmol, intravenous, ONCE, 1 dose, | | 8 08:38 | | | | | Olamide 09/15/17 at 0645 | | PDT | | | | + +---------+ +---------+---+---+ +---+---+ | | | +---+---+ in this encounter
--- OUTSIDE RECORDS SUMMARY | ~2017-11-22 | XMS | Encounter Summary ---
Demographics + + + | Address | [address] | | | [place] [address] | + + + | Home Phone | | + + + | Preferred Language | Unknown | + + + | Marital Status | | + + + | Confucianist Affiliation | LDS | + + + | Race | White | + + + | Ethnic Group | Not or | + + + Author + + + | Author | [facility] | + + + | Organization | [facility] | + + + | Address | Unknown | + + + | Phone | Unavailable | + + + Support + + + + + | Name | Relationship | Address | Phone | + + + + + | MILLY NGUYEN | ECON | [address] | | | | | [place], | | | | | [place] [address] | | + + + + + | Holly Burrell | ECON | Unknown | | + + + + + Care Team Providers + +------+ + | Care Scaling Machine Operator Name | Role | Phone | + +------+ + | Jeremy Adrian MD | PCP | | + +------+ + Encounter Details +--------+ + + + + | Date | Type | Department | Care Team | Description | +--------+ + + + + | 09/02/ | Telephone | Urology at [facility] | Cristy Rubin MD | | | 2018 | | [address] | [address] | | | | | Mail Code: CH10U | [place], [place] | | | | | [facility] | [address] | | | | | and [address] | [phone] | | | | | Floor [place], [place] | | | | | | [address] | | | | | | [phone] | | | +--------+ + + + [...] + + | 12/20/ | Diagnostic | Cell Attendant | Nils Woody, | | | 2017 | Visit | | [address] | | | | | | [address] | | | | | | [place] | | | | | | [address] | | | | | | | | +--------+ + + + + as of this encounter Visit Diagnoses Not on filein this encounter"
--- OUTSIDE RECORDS SUMMARY | ~2017-11-22 | XMS | Encounter Summary ---
Demographics + + + | Address | [address] | | | [place] [address] | + + + | Home Phone | | + + + | Preferred Language | Unknown | + + + | Marital Status | | + + + | Zoroastrianism Affiliation | LDS | + + + | Race | White | + + + | Ethnic Group | Not or | + + + Author + + + | Author | [facility] | + + + | Organization | [facility] | + + + | Address | Unknown | + + + | Phone | Unavailable | + + + Support + + + + + | Name | Relationship | Address | Phone | + + + + + | MILLY NGUYEN | ECON | [address] | | | | | [place], | | | | | [place] [address] | | + + + + + | Holly Burrell | ECON | Unknown | | + + + + + Care Team Providers + +------+ + | Care Lap Winding Machine Operator Name | Role | Phone | + +------+ + | Jeremy Adrian MD | PCP | | + +------+ + Reason for Referral PROC - Inpatient Surgery (Urgent) +--------+--------+ + + + + | Status | Reason | Specialty | Diagnoses / | Referred By | Referred To | | | | | Procedures | Contact | Contact | +--------+--------+ + + + + | Closed | | Urology | Diagnoses | Cristy Rubin | Cristy Rubin | | | | | Renal mass | MD Devika | MD Devika | | | | | Procedures | [address] | [address] | | | | | REQUEST TO | Ave | Ave | | | | | SURGERY | [place], [place] | [place], [place] | | | | | DERMATOLOGY TEACHER | [address] | [address] | | | | | [place] REM[place] | Phone: | Phone: | | | | | KIDNEY,RADIC | [phone] | [phone] | | | | | [place] | Fax: | Fax: | | | | | [facility] | [phone] | [phone] | | | | | OPY, [facility]ST | | | | | | | APPROACH | | | +--------+--------+ + + + + Diagnostic Testing (Routine) + +--------+ + + + + | Status | Reason | Specialty | Diagnoses / | Referred By | Referred To | | | | | Procedures | Contact | Contact | + +--------+ + + + + | New Request | | Radiology | Diagnoses | Cristy Rubin | | | | | | Renal mass | MD Devika | | | | | | Procedures | [address] | | | | | | MRI ABDOMEN | Ave | | | | | | WWO | [facility] [place] | | | | | | CONTRAST | [address] | | | | | | | Phone: | | | | | | | [phone] | | | | | | | Fax: | | | | | | | [phone] | | + +--------+ + + + + Encounter Details +--------+ + + + + | Date | Type | Department | Care Team | Description | +--------+ + + + + | 08/24/ | Orders Only | Urology at [facility] | Cristy Rubin MD | Renal mass (Primary | | 2018 | | [address] | [address] | Dx) | | | | Mail Code: CH10U | [facility] [place] | | | | | [facility] | [address] | | | | | and | [phone] | | | | | Floor [facility] [place] | | | | | | [address] | | | | | | [phone] | | | +--------+ + + + [...] + + | 12/20/ | Diagnostic | Rock Mason | Nils Woody, | | | 2018 | Visit | | [address] | | | | | | [address] [facility] | | | | | | [place], [place] | | | | | | [address] | | | | | | | | +--------+ + + + + + +--------+ + + | Name | Priori | Associated Diagnoses | Order Schedule | | | ty | | | + +--------+ + + | MRI ABDOMEN WWO CONTRAST | Routin | Renal mass | Expected: | | | e | | 08/24/2017, Expires: | | | | | 09/24/2018 | + +--------+ + + as of this encounter Visit Diagnoses + + | Diagnosis | + + | Renal mass - Primary | + + | Unspecified disorder of kidney and ureter | + +"
--- OUTSIDE RECORDS SUMMARY | ~2017-11-22 | XMS | Encounter Summary ---
Demographics + + + | Address | [address] | | | [place] [address] | + + + | Home Phone | | + + + | Preferred Language | Unknown | + + + | Marital Status | | + + + | Muslim Affiliation | LDS | + + + | Race | White | + + + | Ethnic Group | Not or | + + + Author + + + | Author | [facility] | + + + | Organization | [facility] | + + + | Address | Unknown | + + + | Phone | Unavailable | + + + Support + + + + + | Name | Relationship | Address | Phone | + + + + + | MILLY NGUYEN | ECON | [address] | | | | | [place], | | | | | [place] [address] | | + + + + + | Holly Burrell | ECON | Unknown | | + + + + + Care Team Providers + +------+ + | Care Plate Hanger Name | Role | Phone | + [...] + + | New Request | | Hematology & | Diagnoses | | | | | | Oncology | Renal cell | Jose | | | | | | carcinoma, | Alison Cash PA-C | | | | | | unspecified | [address] | | | | | | laterality | [address] | | | | | | ([facility]) | [address] | | | | | | Procedures | [place], [place] | | | | | | CONSULT TO | [address] | | | | | | HEMATOLOGY / | Phone: | | | | | | ONCOLOGY | [phone] | | | | | | PRACTICE | Fax: | | | | | | | [phone] | | + +--------+ + + + + Encounter Details +--------+ + + + + | Date | Type | Department | Care Team | Description | +--------+ + + + + | 09/19/ | Telephone | Urology at [facility] | Alison Garcia | | | 2018 | | [address] | EMPERATRIZ Cash [address] | | | | | Mail Code: CH10U | [address] | | | | | [facility] | [place], [place] | | | | | and [address], | [address] | | | | | Floor [place], [place] | [phone] | | | | | [address] | | | | | | [phone] | | | +--------+ + + + [...] + + | 12/20/ | Diagnostic | Workforce Consultant | Nils Woody, | | | 2017 | Visit | | [facility] [address] | | | | | | [address] | | | | | | [place], [place] | | | | | | [address] | | | | | | | | +--------+ + + + + as of this encounter Visit Diagnoses + + | Diagnosis | + + | Renal cell carcinoma, unspecified laterality (HCC) - Primary | + +"
--- OUTSIDE RECORDS SUMMARY | ~2017-11-22 | XMS | Encounter Summary ---
Demographics + + + | Address | [address] | | | [place] [address] | + + + | Home Phone | | + + + | Preferred Language | Unknown | + + + | Marital Status | | + + + | Protestant Affiliation | LDS | + + + [...] + | MILLY NGUYEN | ECON | [address] | | | | | [place], | | | | | [place] [address] | | + + + + + | Holly Burrell | ECON | Unknown | | + + + + + Care Team Providers + +------+ + | Care Plate Grainer Apprentice Name | Role | Phone | + +------+ + | Jeremy Adrian MD | PCP | | + +------+ + Reason for Visit + + + | Reason | Comments | + + + | Post-discharge | | | follow-up | | + + + Encounter Details +--------+---------+ + + + | Date | Type | Department | Care Team | Description | +--------+---------+ + + + | 10/21/ | Office | Vascular Surgery | Farhat Mathews MD | Renal cell carcinoma | | 2018 | Visit | at [facility] 2[address] Floor | [address] | of right kidney | | | | [address] | Tessie [facility], | ([facility]) (Primary Dx) | | | | [facility] | [place] [address] | | | | | Mailcode: OP11 | [phone] | | | | | Physicians Mick | | | | | | [place], [place] | | | | | | [address] | | | | | | [phone] | | | +--------+---------+ + + + [...] + + + + | Temperature | - | - | + + + + | Respiratory Rate | - | - | + + + + | Oxygen [...] + as of this encounter Progress Notes Farhat Mathews MD - 10/21/2017 2:00 PM [id number] M with 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 He is overall doing well except for dysphasia which has been keeping him f rom eating solids. States this has been present for several years and has an appointment th is afternoon speech therapy. Also having constipation - states he's occasionally taking oxy codone that due to restless leg syndrome. Some leg edema postoperatively, but now improved. 147/82, 75 A&O, NAD RRR CTAB Abdomen soft, nt Bilateral legs with mild non-pitting edema Duplex: patent IVC graft and patent left renal vein 72yo M with IVC reconstruction at the time of radical right nephrectomy doing well. Recomm end baby aspirin indefinitely (states he often forgets to take it) and reminded patient impo rtance of daily adherence. Lives in [facility] and will be following up with medical oncology in [facility]. He should follow up with us with any new development of lower extremity raoul ma or issues with cava in any of his surveillance imaging for his kidney cancer. Follow up PRN. This has been electronically signed by FARHAT MATHEWS MD, 10/21/2017 at 2:11 PM. in this encounter Plan of Treatment +--------+ + + + + | Date | Type | Specialty | Care Team | Description | +--------+ + + + + | 12/20/ | Diagnostic | Horizontal Boring Mill Operator | Nils Woody, | | | 2017 | Visit | | [address] | | | | | | [address] | | | | | | [place], [place] | | | | | | [address] | | | | | | | | +--------+ + + + + as of this encounter Visit Diagnoses + + | Diagnosis | + + | Renal cell carcinoma of right kidney (HCC) - Primary | + +"
--- OUTSIDE RECORDS SUMMARY | ~2017-11-22 | XMS | Encounter Summary ---
Demographics + + + | Address | [address] | | | [place] [address] | + + + | Home Phone | | + + + | Preferred Language | Unknown | + + + | Marital Status | | + + + | Evangelical Affiliation | LDS | + + + | Race | White | + + + | Ethnic Group | Not or | + + + Author + + + | Author | [facility] | + + + | Organization | [facility] | + + + | Address | Unknown | + + + | Phone | Unavailable | + + + Support + + + + + | Name | Relationship | Address | Phone | + + + + + | MILLY NGUYEN | ECON | [address] | | | | | [place], | | | | | [place] [address] | | + + + + + | Holly Burrell | ECON | Unknown | | + + + + + Care Team Providers + +------+ + | Care Cash Register Repairer Name | Role | Phone | + +------+ + | Jeremy Adrian MD | PCP | | + +------+ + Reason for Visit + + + | Reason | Comments | + + + | New patient | | | consultation | | + + + Intake Referral (Routine) +--------+--------+ + + + + | Status | Reason | Specialty | Diagnoses / | Referred By | Referred To | | | | | Procedures | Contact | Contact | +--------+--------+ + + + + | Closed | | Urology | Diagnoses | Kaylah, | Uro | | | | | Malignant | Jeremy Maynard, | Oncology Ch | | | | | neoplasm of [...] | | | | | | [place] [address] | [place], [place] | | | | | | Phone: | [address] | | | | | | [phone] | Phone: | | | | | | Fax: | [phone] | | | | | | [phone] | Fax: | | | | | | | [phone] | +--------+--------+ + + + + Encounter Details +--------+---------+ + + + | Date | Type | Department | Care Team | Description | +--------+---------+ + + + | 09/01/ | Office | Urology at [facility] | Cristy Rubin MD | Renal cell carcinoma | | 2018 | Visit | [address] | [address] | of right kidney | | | | Mail Code: CH10U | [place], [place] | ([facility]) (Primary Dx) | | | | [facility] | [address] | | | | | and | [phone] | | | | | Floor [place], [place] | | | | | | [address] | | | | | | [phone] | | | +--------+---------+ + + + [...] + + + | Blood Pressure | 152/76 | 09/01/2017 8:29 AM PDT | + + + + | Pulse | 84 | 09/01/2017 8:29 AM PDT | + + + + | Temperature | - | - | + + + + | Respiratory Rate | - | - | + + + + | Oxygen Saturation | - | - | + + + + | Inhaled Oxygen | - | - | | Concentration | | | + + + + | Weight | 72.6 kg (160 lb) | 09/01/2017 8:29 AM PDT | + + + + | Height | 172.7 cm (5' 8") | 09/01/2017 8:29 AM PDT | + + + + | Body Mass Index | 24.33 | 09/01/2017 8:29 AM PDT | + + + + in this encounter Progress Notes Tomás Sage MA - 09/01/2017 8:30 AM PDT Review of Systems HENT: Positive for headaches and hearing loss. Cardiovascular: Positive for leg swelling. Genitourinary: Positive for dysuria, frequency and urgency. Neurological: Positive for tingling and weakness. Endo/Heme/Allergies: Bruises/bleeds easily. All other systems reviewed and are negative. Physical Exam Cristy Rubin MD - 09/01/2017 8:30 AM PDTFormatting of this note may be different from lashay hilario. Urologic Oncology Clinic New Patient Visit Referring Physician: Cristy Rubin MD [address] [place] [address] Identification: 71 y.o. year old White male who was referred for right renal mass. The mass was discovered based on gross hematuria. No flank pain. Imaging in the form of CT of the abdomen and pelvis with contrast was performed 08/31/2017. I t showed an 11 cm right renal mass with associated renal vein and level two caval thrombus. Maximum caval diameter almost 4.5 cm. The left kidney was normal without masses or hydroneph rosis. No lymphadenopathy was noted in the retroperitoneum. Renal ultrasound 08/16/2017 visua lized the mass. CT chest with contrast has been performed 08/19/2017 and showed multiple bila teral pulmonary nodules concerning metastases. He also has a bladder mass that was visualized on the CT scan. Renal bladder US today showe d that the mass does not have flow. He is having ongoing hematuria, so it may just represent clot. Cr was 1.03 on 08/16/2017. ALP was high (177) on 08/16/2017, and AST, ALT were normal at that time. 100 lb weight loss (some intentional) over last few years. Denies any previous history of tobacco use. Denies any family history of kidney cancer. He has a history of open appendectomy in the . Past Medical History: Diagnosis Date DM2 (diabetes mellitus, type 2) (HCC) Esophageal stricture says food pockets in esophagus and has trouble with solid foods sometimes...prefers soft f ood. GERD (gastroesophageal reflux disease) Hyperlipidemia Hypertension Post-polio syndrome SNHL (sensorineural hearing loss) bilateral Past Surgical History Procedure Laterality Date Inner ear surgery 1975 Tonsillectomy and adenoidectomy Appendectomy Family History Problem Relation Cancer Mother liver, cause of Hypertension Father Diabetes Father Diabetes Brother Social History Social History Marital status: Spouse name: N/A Number of children: N/A Years of education: N/A Social History Main Topics Smoking status: Former Smoker Packs/day: 0.20 Years: 1.00 Types: Cigarettes Quit date: 1966 Smokeless tobacco: Never Used Alcohol use No Drug use: No Sexual activity: Not on file Other Topics Concern Not on file Social History Narrative No narrative on file The patient lives with , 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 Current Outpatient Prescriptions Medication Sig acetaminophen 500 mg oral tablet Take 1,000 mg by mouth every six hours as needed. ASPIRIN/ACETAMINOPHEN/CAFFEINE (EXCEDRIN EXTRA STRENGTH ORAL) Take by mouth once daily . BD INSULIN PEN NEEDLE UF MINI 31 06/10" 31 gauge x 06/10" needle cholecalciferol (Vitamin D3) 1,000 unit oral tablet Take 1,000 Units by mouth once kat y. ciprofloxacin HCl 500 mg oral tablet Take 500 mg by mouth every twelve hours. dexamethasone 0.1 % ophthalmic drops Apply 5 gtts to left EAR BID as directed INVOKANA 100 mg oral tablet once daily. LANTUS SOLOSTAR 100 unit/mL (3 mL) subcutaneous insulin pen 10 Units once daily at bedt gordon. metFORMIN 500 mg oral tablet Take 1,000 mg by mouth two times daily. ondansetron ODT (ZOFRAN ODT) 4 mg oral tablet,disintegrating Dissolve 1 tablet in mouth every twelve hours as needed for nausea/vomiting. oxyCODONE (immediate release) 5 mg oral tablet Take 1 to 2 tablets by mouth every six h ours as needed for breakthrough pain. oxyCODONE, immediate release, 5 mg/5 mL oral solution Take 5 mL by mouth every six hour s as needed for severe pain. pantoprazole 40 mg oral tablet,delayed release (DR/EC) Take 40 mg by mouth once daily. promethazine 25 mg oral tablet Take 1 tablet by mouth four times daily as needed for na usea/vomiting (Nausea, dizziness, vertigo). simvastatin 40 mg oral tablet Take 40 mg by mouth once daily in the evening. sitaGLIPtin (JANUVIA) 100 mg oral tablet Take 100 mg by mouth once daily. tamsulosin 0.4 mg oral capsule,extended release 24hr Take 0.4 mg by mouth once daily. valsartan-hydrochlorothiazide 160-12.5 mg oral tablet No current facility-administered medications for this visit. No Known Allergies REVIEW OF SYSTEMS: A complete review of systems was performed, reviewed by me, and is docu mented on the intake sheet. The pertinent positives and negatives are documented. The rest a re negative. PHYSICAL EXAM: BP 152/76 | Pulse 84 | Ht 1.727 m (5' 8") | Wt 72.6 kg (160 lb) | BMI 24.33 kg/(m^2) GEN: appears well, in NAD PSYCH: alert and oriented, affect appropriate SKIN: pink, warm and dry HEENT: nose/throat clear, no scleral icterus. LYMPH: no cervical or supraclavicular adenopathy. ABDOM: soft, NT/ND. BACK: no CVA tenderness EXTREM: No edema NEURO: Non-focal. LABS: Lab Results Component Value Date WBC 9.76 12/03/2014 PLT 291 12/03/2014 MCV 86.7 12/03/2014 RDW 39.8 12/03/2014 Lab Results Component Value Date NA 133 (L) 12/03/2014 K 4.3 12/03/2014 CL 100 12/03/2014 BICARB 26 12/03/2014 BUN 20 12/03/2014 CR 1.4 (H) 08/31/2017 GLU 126 (H) 08/30/2016 CA 9.0 12/03/2014 Assessment: 71 y.o. male with an 11 cm right renal mass and associated caval thrombus, level II. ALthou gh the thrombus is not very high, it is quite large, and maximum diameter is 4.5-5 cm wide, raising the concern for caval wall invasion. We discussed the patient's test results and imaging. We discussed with the patient the sign ificance and etiology of renal masses, including simple, cystic, complex and solid lesions. We discussed the different diagnostic and treatment options available including renal mass b iopsy, open and laparoscopic/robotic radical nephrectomy, open and laparoscopic/robotic part ial nephrectomy, ablative therapies including cryotherapy and radio-frequency ablation, and expectant management (also known as active surveillance). I explained what is involved with each of these therapies and what to expect before, during, and after treatment. We discus sed both short-term and long-term follow-up. I reviewed that given the locally advanced natu re of his disease, that from a surgical perspective total nephrectomy is the only available treatment. The patient's main alternative to surgery would be symptomatic treatment and targ eted therapy, but that this would likely only shrink the tumor. We reviewed that adjuvant th erapy may be beneficial after resection in the case of high risk tumors. We also reviewed th at in the setting of caval involvement that expectant management could be associated with pr ogressive vena caval obstruction and the risk of tumor embolization which is life threatenin g. I reviewed with him that surgery is cytoreductive in nature, and that removal of his kidney and thrombus will not result in cure of his disease, but may offer improvement in progressi on free or even overall survival. We reviewed open right nephrectomy, caval thrombectomy, possible vena caval grafting and re troperitoneal lymph node dissection in detail. A full PARQ discussion was held. The patien t understands that the risks of this procedure include but are not limited to deep vein thro mbosis, pulmonary embolus, cardiopulmonary complications and potential need for cardiopulmon brie bypass, liver and kidney failure, , bleeding and the need for blood transfusion, in fection, injury to intra- and extra-peritoneal structures, pneumothorax, incomplete resectio n of tumor, urine or lymph leak, ureteral stricture, delayed bleeding, and the need for fallon tional therapy or re-operation. I described postoperative care and what to expect during inpatient and at-home recovery period. We also reviewed that this is a high risk surgery, with a perioperative mortality between 5 and 15%. The patient will likely require ICU care, and potentially nursing care after discharge. Plan: 1. Preoperative visits with urology RN, PMC 2. I am concerned about his weight loss and nutrition-I recommend that he take ensure and e at as much protein as possible between now and the date of surgery 3. Given the wide thrombus diameter, he is at risk for vena caval wall invasion and I will contact Dr. Rosalino Mathews to discuss with her the need for possible vena caval grafting. Alex Rubin MD Accountant Machine Processing Department of Urology [facility] [place] in this encounter Plan of Treatment +--------+ + + + + | Date | Type | Specialty | Care Team | Description | +--------+ + + + + | 12/20/ | Diagnostic | Food And Nutrition Teacher | Nisl Woody, | | | 2018 | Visit | | Keyla [facility] [address] | | | | | | [address] | | | | | | [place], [place] | | | | | | [address] | | | | | | | | +--------+ + + + + as of this encounter Visit Diagnoses + + | Diagnosis | + + | Renal cell carcinoma of right kidney (HCC) - Primary | + +
--- OUTSIDE RECORDS SUMMARY | ~2017-11-22 | XMS | Encounter Summary ---
Demographics + + + | Address | [address] | | | [place] [address] | + + + | Home Phone [...] + | MILLY NGUYEN | ECON | [address] | | | | | [place], | | | | | [place] [address] | | + + + + + | Holly Burrell | ECON | Unknown | | + + + + + Care Team Providers + +------+ + | Care Display And Banner Designer Name | Role | Phone | + +------+ + | Jeremy Adrian MD | PCP | | + +------+ + Reason for Visit + + + | Reason | Comments | + + + | Lab Order | | + + + Encounter Details +--------+ + + + + | Date | Type | Department | Care Team | Description | +--------+ + + + + | 10/06/ | Telephone | Urology at [facility] | GardeniagingerAlison | Lab Order | | 2017 | | [address] | [address]Z [address] | | | | | Mail Code: CH10U | [address] | | | | | [facility] | [place], [place] | | | | | and | [address] | | | | | Floor [place], [place] | [phone] | | | | | [address] | | | | | | [phone] | | | +--------+ + + + [...] + + | 12/20/ | Diagnostic | Pasting Machine Operator | Nils Woody, | | | 2018 | Visit | | Keyla [facility] [address] | | | | | [address] | | | | | | [place], [place] | | | | | | [address] | | | | | | | [...] K, CL, TCO2, BUN, CR, GLU, CA) (10/06/2017) + +-------+ + + | Component | Value | Ref Range | Performed At | + +-------+ + + | GLUCOSE, PLASMA | 93 | 65 - 110 mg/dL | [facility] - | | (LAB) | | | IAN | + +-------+ + + | BUN, PLASMA (LAB) | 16.5 | mg/dL | [facility] - | | | | | [place] | + +-------+ + + | CREATININE PLASMA | 1.27 | mg/dL | [facility] - | | (LAB) | | | IAN | + +-------+ + + | SODIUM, PLASMA (LAB) | 137 | mmol/L | [facility] - | | | | | IAN | + +-------+ + + | POTASSIUM, PLASMA | 5.7 | mmol/L | [facility] - | | (LAB) | | | IAN | + +-------+ + + | CHLORIDE, PLASMA | 101 | mmol/L | [facility] - | | (LAB) | | | IAN | + +-------+ + + | TOTAL CO2, PLASMA | 22 | mmol/L | [facility] - | | (LAB) | | | IAN | + +-------+ + + | CALCIUM, PLASMA | 10.3 | mg/dL | [facility] - | | (LAB) | | | IAN | + +-------+ + + + + | Specimen | + + | Blood - Blood | + + + + + + + | Performing | Address | City/State/Zipcode | Phone Number | | Organization | | | | + + + + + | [facility] - | [address] | [place], [place] | [phone] | | IAN | | | | + + + + + in this encounter Visit Diagnoses Not on filein this encounter"
--- OUTSIDE RECORDS SUMMARY | ~2017-11-22 | XMS | Encounter Summary ---
Demographics + + + | Address | [address] | | | [place] [address] | + + + | Home Phone | | + + + | Preferred Language | Unknown | + + + | Marital Status | | + + + | Jew Affiliation | LDS | + + + | Race | White | + + + | Ethnic Group | Not or | + + + Author + + + | Author | [facility] | + + + | Organization | [facility] | + + + | Address | Unknown | + + + | Phone | Unavailable | + + + Support + + + + + | Name | Relationship | Address | Phone | + + + + + | MILLY NGUYEN | ECON | [address] | | | | | [place], | | | | | [place] [address] | | + + + + + | Holly Burrell | ECON | Unknown | | + + + + + Care Team Providers + +------+ + | Care Conversion Man Name | Role | Phone | + [...] | 10/06/ | Telephone | Urology at [facility] | GardeniagingerAlison | Lab Order | | 2017 | | [address] | [address] | | | | | Mail Code: CH10U | [address] | | | | | [facility] | [place], [place] | | | | | and | [address] | | | | | Floor [place], [place] | [phone] | | | | | [address] | | | | | | [phone] | | | +--------+ + + + [...] + + | 12/20/ | Diagnostic | Floor Covering Contractor | Nils Woody, | | | 2018 | Visit | | Keyla [facility] [address] | | | | | | [address] | | | | | | [place], [place] | | | | | | [...] + + | [facility] - | [address] | [place], [place] | [phone] | | IAN | | | | + + + + + in this encounter Visit Diagnoses Not on filein this encounter"
--- OUTSIDE RECORDS SUMMARY | ~2017-11-22 | XMS | Encounter Summary ---
Demographics + + + | Address | [address] | | | [place] [address] | + + + | Home Phone | | + + + | Preferred Language | Unknown | + + + | Marital Status | | + + + | Yazidism Affiliation | Unknown | + + + | Race | Unknown | + + + | Ethnic Group | Unknown | + + + Author + + + | Author | [facility] | + + + | Organization | [facility] | + + + | Address | Unknown | + + + | Phone | Unavailable | + + + Support + + +---------+ + | Name | Relationship | Address | Phone | + + +---------+ + | Yuki Nguyen | ECON | Unknown | | + + +---------+ + Care Team Providers + +------+ + | Care Real Estate Development Manager Name | Role | Phone | + +------+ + PCP | Unavailable | + +------+ + Reason for Referral MRI/CAT Scan (Urgent) + +--------+ + + + + | Status | Reason | Specialty | Diagnoses / | Referred By | Referred To | | | | | Procedures | Contact | Contact | + +--------+ + + + + | Authorized | | Radiology | Diagnoses | | [facility] | | | | | Cancer of | [place], | [address] | | | | | kidney, | [address] | [address] | | | | | right (HCC) | [address] | [place] | | | | | Procedures | [address] | [address] Phone: | | | | | MRI brain | AVE | [phone] | | | | | with and | [place], | Fax: | | | | | without | [place] [address] | [phone] | | | | | contrast | Phone: | | | | | | | [phone] | | | | | | | Fax: | | | | | | | [phone] | | + +--------+ + + + + Nuclear Medicine (Urgent) + +--------+ + + + + | Status | Reason | Specialty | Diagnoses / | Referred By | Referred To | | | | | Procedures | Contact | Contact | + +--------+ + + + + | Authorized | | Radiology | Diagnoses | | [facility] | | | | | Cancer of | [place], | Nuclear | | | | | kidney, | [address] | [address] | | | | | right (HCC) | [address] | [place] | | | | | Procedures | [address] | [place], [place] | | | | | [place] bone | AVE | [address] Phone: | | | | | scan whole | [place], | [phone] | | | | | body | [place] [address] | x4385 | | | | | | Phone: | | | | | | | [phone] | | | | | | | Fax: | | | | | | | [phone] | | + +--------+ + + + + MRI/CAT Scan (Urgent) + +--------+ + + + + | Status | Reason | Specialty | Diagnoses / | Referred By | Referred To | | | | | Procedures | Contact | Contact | + +--------+ + + + + | Authorized | | Radiology | Diagnoses | | [facility] [address] | | | | | Cancer of | [place], | [address] | | | | | kidney, | [address] | Blvd | | | | | right (HCC) | [address] | [place], [place] | | | | | Procedures | [address] | [address] Phone: | | | | | CT chest | AVE | [phone] | | | | | without | [place] | | | | | | contrast | [place] [address] | | | | | | | Phone: | | | | | | | [phone] | | | | | | | Fax: | | | | | | | [phone] | | + +--------+ + + + + Reason for Visit +--------+ + | Reason | Comments | +--------+ + | Other | onc consult | +--------+ + Consult and Treat (Routine) + +--------+ + + + + | Status | Reason | Specialty | Diagnoses / | Referred By | Referred To | | | | | Procedures | Contact | Contact | + +--------+ + + + + | Authorized | | Hematology | Diagnoses | | | | | | and Oncology | Renal cell | [place]ly, | [place], | | | | | carcinoma, | EMPERATRIZ Rosas | Stephanie Dubon, | | | | | unspecified | [address] | [address] | | | [address] | [address] | [address] | | | | | (HCC) ONC | [place], [place] | [place], | | | | | | [address] | [place] [address] | | | | | | Phone: | Phone: | | | | | | [phone] | [phone] | | | | | | Fax: | Fax: | | | | | | [phone] | [phone] | + +--------+ + + + + Encounter Details +--------+---------+ + + + | Date | Type | Department | Care Team | Description | +--------+---------+ + + + | 10/04/ | Office | [facility] | Gabriella, | Encounter for | | 2017 | Visit | Hematology and | Stephanie Dubon MD | antineoplastic | | | | Oncology [address] | chemotherapy | | | | [address] | [place] | (Primary Dx); Cancer | | | | [place] | [address] | of kidney, right | | | | [address] | | (HCC) | | | | [phone] | | | +--------+---------+ + + + [...] + + + | Blood Pressure | 130/78 | 10/04/2017 1:17 PM PDT | + + + + | Pulse | 74 | 10/04/2017 1:17 PM PDT | + + + + | Temperature | 36.5 C (97.7 F) | 10/04/2017 1:17 PM PDT | + + + + | Respiratory Rate | - | - | + + + + | Oxygen Saturation | 99% | 10/04/2017 1:17 PM PDT | + + + + | Inhaled Oxygen | - | - | | Concentration | | | + + + + | Weight | 66.3 kg (146 lb 1.3 | 10/04/2017 1:17 PM PDT | | | oz) | | + + + + | Height | 168.9 cm (5' 6.5") | 10/04/2017 1:17 PM PDT | + + + + | Body Mass Index | 23.22 | 10/04/2017 1:17 PM PDT | + + + + in this encounter Progress Notes Stephanie Quiroz MD - 10/04/2017 1:00 PM PDTFormatting of this note may be diffe rent from the original. [facility] Hematology & Oncology Initial Oncology Consultation Patient Name: ELICEO NGUYEN Date of : 1945 Age: 71 y.o. Referring Provider: Dr. Garcia PCP: No primary care provider on file. Dear Dr. Garcia, On October 04, 2017, I had the privilege of seeing your patient, Mr. Eliceo Nguyen, in co nsultation. I am certain that you are fully apprised of his medical history, but I would lik e to review it here for the sake of our mutual medical records. Reason for Consultation Metastatic kidney cancer History of Present Illness Mr. Eliceo Nguyen is a pleasant 71 y.o. male here for recommendations on further manag ement of newly diagnosed metastatic kidney cancer. Patient developed gross hematuria, [...] metastatic di sease. He was referred to [facility] and underwent open right radical nephrectomy along [...] for malignancy. Pathological stage p T3c N0. Patient is recovering from the surgery and is here to discuss further management. He denie s any abdominal pain at this time. Cancer Stage Cancer Staging No matching staging information was found for the patient. Oncology History No history exists. Medical History Allergies not on file No past medical history on file. No past surgical history on file. No family history on file. Social History Social History Marital status: Spouse name: N/A Number of children: N/A Years of education: N/A Occupational History Not on file. Social History Main Topics Smoking status: Not on file Smokeless tobacco: Not on file Alcohol use Not on file Drug use: Unknown Sexual activity: Not on file Other Topics Concern Not on file Social History Narrative No narrative on file Patient's medical history above reviewed and updated on 10/04/2017 Medications No current outpatient prescriptions on file. No current facility-administered medications for this visit. Medications reviewed and updated on 10/04/2017 Review of Systems Review of Systems Constitutional: Positive for appetite change and fatigue. Negative for diaphoresis, fever a nd unexpected weight change. HENT: Positive for trouble swallowing (especially with pills, long-term). Negative for mout h sores. Respiratory: Negative for cough and shortness of breath. Cardiovascular: Negative for chest pain and palpitations. Gastrointestinal: Negative for abdominal pain, constipation, nausea and vomiting. Genitourinary: Negative for difficulty urinating and dysuria. Musculoskeletal: Negative for back pain. Skin: Negative for rash. Neurological: Negative for seizures and headaches. Hematological: Negative for adenopathy. Does not bruise/bleed easily. Physical Exam There were no vitals taken for this visit. ECOG Performance Status: 1 Physical Exam Constitutional: He appears well-developed and well-nourished. Neck: Neck supple. Cardiovascular: Normal rate and regular rhythm. Pulmonary/Chest: Effort normal and breath sounds normal. Abdomina/Gl: Soft. Bowel sounds are normal. He exhibits no mass. abdominal scar well healed Lymphadenopathy: He has no cervical adenopathy. Skin: Skin is warm and dry. Labs and Imaging No visits with results within 1 Month(s) from this visit. Latest known visit with results is: No results found for any previous visit. Assessment Mr. Eliceo Nguyen is a pleasant 71 y.o. male history of diabetes, hyperlipidemia, hype rtension, now presented with metastatic kidney cancer status post right radical nephrectomy and excision of IVC tumor thrombus. Plan 1. 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 Also, there are multiple lung nodules in the lung bases noted on the abd ominal imaging and suspicious for metastatic disease, along with liver lesion that is suspic ious for metastatic disease. Based on the available imaging formal CT scan of the chest has not been performed. Obtain CT scan of the chest without contrast, bone scan, and MRI of th e brain with and without contrast to complete staging workup for evaluation of metastatic di sease. His blood work showed slightly increase in serum creatinine of 1.4, suggestive of ch ronic kidney disease. His preoperative serum creatinine was normal. 2. I reviewed the various treatment options for treatment of metastatic kidney cancer. Tr eatment options include combination immunotherapy with Nivolumab and ipilumumab given every 3 weeks for 4 times followed by Nivolumab maintenance. Reviewed side effects of immunothera py. Also reviewed the option of starting oral TKI therapy with either pazopinib or sunitini b. Reviewed side effects of the medications including but not limited to fatigue, pneumonit is, diarrhea, hypertension, rash, LFT elevations, decreased heart function, visual disturban lupillo, headaches, acute abnormalities, hand-foot syndrome with burning sensation in the hands and feet, thrombocytopenia, anemia, among some of the side effects of therapy. After review ing all the options patient is wanting to try oral TKI therapy. I reviewed the option of pa zopinib and sunitinib therapy. Patient has difficulty swallowing pills, and I will discuss with pharmacy to see if any of the medications could be crushed/opened for him to swallow be tter. 3. Follow-up with repeat imaging as mentioned above and start oral TKI therapy as soon as possible. After discussing with pharmacy, I will have him sign the consent for chemotherapy . All the patient's questions were answered to his satisfaction. Greater than 60 minutes wer e spent examining the patient, review of medical records, counseling, coordination of care, and CPOE. More than 50% of that time spent counseling. I would like to thank Dr. Garcia for the courtesy of this referral. Addendum: Reviewed with the pharmacy, and recommended sunitinib given smaller size of the c apsules. He is elderly with borderline performance status. Start 37.5 mg 4 weeks on and 2 weeks off. If unable to tolerate therapy/having side effects consider changing to 2 weeks o n 1 week off treatment schedule. Titrate dose as tolerated. Stephanie Quiroz MD [facility] Hematology & Oncology 10/04/2017 Portions of this chart may have been created with voice recognition software. Occasional wr danielle-word or "sound-alike" substitutions may have occurred, even [...] [place] | | | | | | [address] | | | | | | | | +--------+---------+ + + + + +--------+ + + | Name | Priori | Associated Diagnoses | Order Schedule | | | ty | | | + +--------+ + + | CT chest without contrast | [facility] | Cancer of kidney, | Ordered: 10/10/2017 | | | | right (HCC) | | + +--------+ + + | NM bone scan whole body | [facility] | Cancer of kidney, | Ordered: 10/10/2017 | | | | right (HCC) | | + +--------+ + + | MRI brain with and without | [facility] | Cancer of kidney, | Ordered: 10/10/2017 | | contrast | | right (HCC) | | + +--------+ + + as of this encounter Visit Diagnoses + + | Diagnosis | + + | Encounter for antineoplastic chemotherapy - Primary | + + | Cancer of kidney, right (HCC) | + +
--- OUTSIDE RECORDS SUMMARY | ~2017-11-22 | XMS | Encounter Summary ---
Demographics + + + | Address | [address] | | | [place] [address] | + + + | Home Phone | | + + + | Preferred Language | Unknown | + + + | Marital Status | | + + + | Confucianist Affiliation | LDS | + + + | Race | White | + + + | Ethnic Group | Not or | + + + Author + + + | Author | [facility] | + + + | Organization | [facility] | + + + | Address | Unknown | + + + | Phone | Unavailable | + + + Support + + + + + | Name | Relationship | Address | Phone | + + + + + | MILLY NGUYEN | ECON | [address] | | | | | [place], | | | | | [place] [address] | | + + + + + | Holly Burrell | ECON | Unknown | | + + + + + Care Team Providers + +------+ + | Care It Systems Engineer Name | Role | Phone | + +------+ + | Jeremy Adrian MD | PCP | | + +------+ + Encounter Details +--------+ + + + + | Date | Type | Department | Care Team | Description | +--------+ + + + + | 08/23/ | Abstract | Urology at [facility] | Uro, Gen [address] | | | 2018 | | [address] | [address] [place] | | | | | Mail Code: CH10U | Road [place], [place] | | | | | [facility] | [address] | | | | | and [address], | | | | | | Floor [place], [place] | | | | | | [address] | | | | | | [phone] | | | +--------+ + + + [...] + + | 12/20/ | Diagnostic | Smt Machine Operator | Nils Woody, | | | 2018 | Visit | | [address] | | | | | [address] | | | | | | [place] | | | | | | [address] | | | | | | | | +--------+ + + + + as of this encounter Visit Diagnoses Not on filein this encounter"
--- OUTSIDE RECORDS SUMMARY | ~2017-11-22 | XMS | Encounter Summary ---
Demographics + + + | Address | [address] | | | [place] [address] | + + + | Home Phone | | + + + | Preferred Language | Unknown | + + + | Marital Status | | + + + | Orthodoxy Affiliation | Unknown | + + + | Race | Unknown | + + + | Ethnic Group | Unknown | + + + Author + + + | Author | [facility] | + + + | Organization | [facility] | + + + | Address | Unknown | + + + | Phone | Unavailable | + + + Support + + +---------+ + | Name | Relationship | Address | Phone | + + +---------+ + | Yuki Nguyen | ECON | Unknown | | + + +---------+ + Care Team Providers + +------+ + | Care Mixer Foam Rubber Name | Role | Phone | + +------+ + PCP | Unavailable | + +------+ + Reason for Visit + + + | Reason | Comments | + + + | Medication Refill | Sunitinib; Oral chemo - New | + + + Encounter Details +--------+ + + + + | Date | Type | Department | Care Team | Description | +--------+ + + + + | 10/12/ | Documentati | [facility] | Marc Chinchilla | Medication Refill | | 2018 | on Only | Hematology and | | (Sunitinib; Oral | | | | Oncology [address] | | chemo - New ) | | | | [address] | | | | | | [place] | | | | | | [address] | | | | | | [phone] | | | +--------+ + + + [...] + as of this encounter Progress Notes Marc Chinchilla - 10/12/2017 11:34 AM Latosha has reached out twice to patient/spous e to set up delivery for sutent but have not received a response back. Provided alternate ph one number from [facility]. Stephie will try that number Mayda Rain, RN - 10/12/2017 11:34 A M PDTPt's called with questions about his antiemetics and chemo RX. I informed her that his chemo RX was approved by insurance and sent to specialty pharmacy. I instructed her on the use of ondansetron and prochlorperazine. Pt is currently constipate d for the last "several days" he has taken bisacodyl and 1 dose of miralax, I advised him to try one more dose of miralax now and if no relief in a couple hours go to the ER. She verba lized understanding. Pt educated on pre algebra teacher role, phone number given.Marc Chinchilla - 10/12/2017 11:34 AM PD TSunitinib approved by insurance, expires 10/11/18. Script [facility] to [facility] per insurance mandate in this encounter Plan of Treatment +--------+---------+ + + + | Date | Type | Specialty | Care Team | Description | +--------+---------+ + + + | 12/21/ | Office | Hematology and | Gabriella, | | | 2017 | Visit | Oncology | Stephanie Dubon MD | | | | | | [address] | | | | | | [place] | | | | | | [address] | | | | | | | | +--------+---------+ + + + as of this encounter Visit Diagnoses Not on filein this encounter
--- OUTSIDE RECORDS SUMMARY | ~2017-11-22 | XMS | Encounter Summary ---
Demographics + + + | Address | [address] | | | [place] [address] | + + + | Home Phone | | + + + | Preferred Language | Unknown | + + + | Marital Status | | + + + | Rastafari Affiliation | LDS | + + + | Race | White | + + + | Ethnic Group | Not or | + + + Author + + + | Author | [facility] | + + + | Organization | [facility] | + + + | Address | Unknown | + + + | Phone | Unavailable | + + + Support + + + + + | Name | Relationship | Address | Phone | + + + + + | MILLY NGUYEN | ECON | [address] | | | | | [place], | | | | | [place] [address] | | + + + + + | Holly Burrell | ECON | Unknown | | + + + + + Care Team Providers + +------+ + | Care Health Unit Supervisor Name | Role | Phone | + [...] [address] | [facility], | ([facility]) (Primary Dx) | | | | [facility] | [place] [address] | | | | | Mailcode: OP11 | [phone] | | | | | [address] | | | | | | [place], [place] | | | | | | [address] | | | | | | [phone] | | | +--------+---------+ + + + [...] Farhat Mathews MD - 10/21/2017 2:00 PM [id number] 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 Lives in [facility] and will be following up with medical oncology in [facility]. He should follow up with us [...] + + | 12/20/ | Diagnostic | Delivery Route Driver | Nils Woody, | | | 2017 | Visit | | [address] | | | | | | [address] | | | | | | [place], [place] | | | | | | [address] | | | | | | | | +--------+ + + + + as of this encounter Visit Diagnoses + + | Diagnosis | + + | Renal cell carcinoma of right kidney (HCC) - Primary | + +"
--- OUTSIDE RECORDS SUMMARY | ~2017-11-22 | XMS | Encounter Summary ---
Demographics + + + | Address | [address] | | | [place] [address] | + + + | Home Phone | | + + + | Preferred Language | Unknown | + + + | Marital Status | | + + + | Advent Affiliation | Unknown | + + + | Race | Unknown | + + + | Ethnic Group | Unknown | + + + Author + + + | Author | [facility] | + + + | Organization | [facility] | + + + | Address | Unknown | + + + | Phone | Unavailable | + + + Support + + +---------+ + | Name | Relationship | Address | Phone | + + +---------+ + | Yuki Nguyen | ECON | Unknown | | + + +---------+ + Care Team Providers + +------+ + | Care Hedis Abstractor Name | Role | Phone | + [...] + + | 10/31/ | Documentati | [facility] | Gabriella, | Other (CT HEAD, DR. | | 2018 | on Only | Hematology and | Stephanie Dubon MD | [facility] | | | | Oncology [address] | [place] ) | | | | [address] | [place], [place] | | | | | [place], [place] | [address] | | | | | [address] | | | | | | [phone] | | | +--------+ + + + [...] [place] | | | | | | [address] | | | | | | | | +--------+---------+ + + + as of this encounter Visit Diagnoses Not on filein this encounter"
--- OUTSIDE RECORDS SUMMARY | ~2017-11-22 | XMS | Encounter Summary ---
Demographics + + + | Address | [address] | | | [place] [address] | + + + | Home Phone | | + + + | Preferred Language | Unknown | + + + | Marital Status | | + + + | Methodist Affiliation | LDS | + + + | Race | White | + + + | Ethnic Group | Not or | + + + Author + + + | Author | [facility] | + + + | Organization | [facility] | + + + | Address | Unknown | + + + | Phone | Unavailable | + + + Support + + + + + | Name | Relationship | Address | Phone | + + + + + | MILLY NGUYEN | ECON | [address] | | | | | [place], | | | | | [place] [address] | | + + + + + | Holly Burrell | ECON | Unknown | | + + + + + Care Team Providers + +------+ + | Care Explosives Detonator Name | Role | Phone | + [...] | 09/02/ | Telephone | Urology at [facility] | Alison Garcia | Care Management | | 2018 | | [address] | [address] | (Record Request) | | | | Mail Code: CH10U | [address] | | | | | [facility] | [place], [place] | | | | | and | [address] | | | | | Floor [place], [place] | [phone] | | | | | [address] | | | | | | [phone] | | | +--------+ + + + [...] + + | 12/20/ | Diagnostic | Art Instructor | Nils Woody, | | | 2017 | Visit | | [address] | | | | | | [address] [facility] | | | | | | [place] | | | | | | [id number] | | | | | | | | +--------+ + + + + as of this encounter Visit Diagnoses Not on filein this encounter"
--- OUTSIDE RECORDS SUMMARY | ~2017-11-22 | XMS | Encounter Summary ---
Demographics + + + | Address | [address] | | | [place] [address] | + + + | Home Phone | | + + + | Preferred Language | Unknown | + + + | Marital Status | | + + + | Zoroastrian Affiliation | Unknown | + + + | Race | Unknown | + + + | Ethnic Group | Unknown | + + + Author + + + | Author | [facility] | + + + | Organization | [facility] | + + + | Address | Unknown | + + + | Phone | Unavailable | + + + Support + + +---------+ + | Name | Relationship | Address | Phone | + + +---------+ + | Yuki Nguyen | ECON | Unknown | | + + +---------+ + Care Team Providers + +------+ + | Care Bar Turner Name | Role | Phone | + [...] [place] | | | | | | [address] | | | +--------+ + + + [...] as of this encounter Progress Tequila Montes, [facility] - 10/10/2017 12:02 PM PDTFormatting of this note may be different from t he original. [facility] New Patient [...] for: CA199 CA 27,29:No results found for: [id number] CEA:No results found for: CEA HCG:No results [...] [place] | | | | | | [address] | | | | | | | | +--------+---------+ + + + as of this encounter Visit Diagnoses Not on filein this encounter"
--- OUTSIDE RECORDS SUMMARY | ~2017-11-22 | XMS | Encounter Summary ---
Demographics + + + | Address | [address] | | | [place] [address] | + + + | Home Phone | | + + + | Preferred Language | Unknown | + + + | Marital Status | | + + + | Scientologist Affiliation | LDS | + + + | Race | White | + + + | Ethnic Group | Not or | + + + Author + + + | Author | [facility] | + + + | Organization | [facility] | + + + | Address | Unknown | + + + | Phone | Unavailable | + + + Support + + + + + | Name | Relationship | Address | Phone | + + + + + | MILLY NGUYEN | ECON | [address] | | | | | [place], | | | | | [place] [address] | | + + + + + | Holly Burrell | ECON | Unknown | | + + + + + Care Team Providers + +------+ + | Care Sales Service Manager Name | Role | Phone | + +------+ + | Jeremy Adrian MD | PCP | | + +------+ + Encounter Details +--------+ + + + + | Date | Type | Department | Care Team | Description | +--------+ + + + + | 09/13/ | Document-Sc | UNKNOWN DEPARTMENT | Other, Faculty | | | 2018 | anned | [address] [facility] | [phone] | | | | | [facility] | | | | | | [place], [place] | | | | | | [address] | | | +--------+ + + + [...] + + | 12/20/ | Diagnostic | Production Bow Maker | Nils Woody, | | | 2018 | Visit | | Keyla [facility] [address] | | | | | | [address] | | | | | | [place], [place] | | | | | | [address] | | | | | | | | +--------+ + + + + as of this encounter Visit Diagnoses Not on filein this encounter"
--- OUTSIDE RECORDS SUMMARY | ~2017-11-22 | XMS | Encounter Summary ---
Demographics + + + | Address | [address] | | | [place] [address] | + + + | Home Phone | | + + + | Preferred Language | Unknown | + + + | Marital Status | | + + + | Restoration Affiliation | LDS | + + + [...] + | MILLY NGUYEN | ECON | [address] | | | | | [place], | | | | | [place] [address] | | + + + + + | Holly Burrell | ECON | Unknown | | + + + + + Care Team Providers + +------+ + | Care Border Guard Name | Role | Phone | + [...] | 10/06/ | Telephone | Urology at [facility] | GardeniagingerAlison | Lab Order | | 2017 | | [address] | [address] | | | | | Mail Code: CH10U | [address] | | | | | [facility] | [place], [place] | | | | | and | [address] | | | | | Floor [place], [place] | [phone] | | | | | [address] | | | | | | [phone] | | | +--------+ + + + [...] + + | 12/20/ | Diagnostic | Appliance Servicer | Nils Woody, | | | 2018 | Visit | | [address] [facility] [address] | | | | | | [address] | | | | | | [place], [place] | | | | | | [...] + + | [facility] - | [address] | [place], [place] | [phone] | | [place] | | | | + + + + + in this encounter Visit Diagnoses Not on filein this encounter"
--- OUTSIDE RECORDS SUMMARY | ~2017-11-22 | XMS | Encounter Summary ---
Demographics + + + | Address | [address] | | | [place] [address] | + + + | Home Phone | | + + + | Preferred Language | Unknown | + + + | Marital Status | | + + + | Shinto Affiliation | Unknown | + + + | Race | Unknown | + + + | Ethnic Group | Unknown | + + + Author + + + | Author | [facility] | + + + | Organization | [facility] | + + + | Address | Unknown | + + + | Phone | Unavailable | + + + Support + + +---------+ + | Name | Relationship | Address | Phone | + + +---------+ + | Yuki Nguyen | ECON | Unknown | | + + +---------+ + Care Team Providers + +------+ + | Care Hogshead Liner Name | Role | Phone | + +------+ + | Jeremy Adrian MD | PCP | | + +------+ + Reason for Visit + + + | Reason | Comments | + + + | Oncology Nurse | | | Navigation | | + + + Encounter Details +--------+ + + + + | Date | Type | Department | Care Team | Description | +--------+ + + + + | 11/17/ | Documentati | [facility] | Nanda Vaughan | Oncology Nurse | | 2018 | on Only | Hematology and | C, RN | Navigation | | | | Oncology [address] | | | | | [address] | | | | | | [place] | | | | | | [address] | | | | | | [phone] | | | +--------+ + + + [...] + as of this encounter Progress Notes Nanda Vaughan RN - 11/17/2017 11:04 AM PDTONN met with patient in Dr. Quiroz's o ffice today. Patient is doing well. He is taking the Sutent in liquid form and tolerating it well. He stated that his local pharmacist helped him with how to pull and measure the do se, but is concerned that the bottle he has will not last the full 28 days. We reassured hi m that if he his taking as prescribed, it should last without issue. He verbalized understa nding. Dr. Quiroz reviewed the potential side effects with the patient including hand and foot syndrome along with diarrhea. He was provided a sample of the Utter Cream should h e develop any symptoms on his hands and feet and was instructed to call should he develop an y diarrhea. ONN will call him for follow up in about a week to ensure that he is still doin g well. Patient denied any further questions or concerns at this time. He will call should any arise. JUDE Boland, RN, OCN Oncology Nurse Navigator in this encounter Plan of Treatment +--------+---------+ + + + | Date | Type | Specialty | Care Team | Description | +--------+---------+ + + + | 12/21/ | Office | Hematology and | Gabriella, | | | 2017 | Visit | Oncology | Stephanie uDbon MD | | | | | | [address] | | | | | | [place] | | | | | | [address] | | | | | | | | +--------+---------+ + + + as of this encounter Visit Diagnoses Not on filein this encounter"
--- OUTSIDE RECORDS SUMMARY | ~2017-11-22 | XMS | Encounter Summary ---
Demographics + + + | Address | [address] | | | [place] [address] | + + + | Home Phone | | + + + | Preferred Language | Unknown | + + + | Marital Status | | + + + | Sikhism Affiliation | LDS | + + + | Race | White | + + + | Ethnic Group | Not or | + + + Author + + + | Author | [facility] | + + + | Organization | [facility] | + + + | Address | Unknown | + + + | Phone | Unavailable | + + + Support + + + + + | Name | Relationship | Address | Phone | + + + + + | MILLY NGUYEN | ECON | [address] | | | | | [place], | | | | | [place] [address] | | + + + + + | Holly Burrell | ECON | Unknown | | + + + + + Care Team Providers + +------+ + | Care Pharmaceutical Sales Specialist Name | Role | Phone | [...] Description | +--------+---------+ + + + | 09/13/ | Surgery | 6A Intra Op [facility] | Cristy Rubin MD | RIGHT OPEN RADICAL | | 2018 | | [facility] | [address] | NEPHRECTOMY CAVAL | | | | Admitting Desk | [place], [place] | THROMBECTOMY, | | | | Located on the | [address] | RETROPERITONEAL | | | | floor [address] [facility] | [phone] | LYMPH NODE | | | | [facility] | | DISSECTION, | | | | [place], [place] | | | | | | [address] | | | +--------+---------+ + + + [...] may be different fr om the original. [facility] Inpatient Discharge Summary Mario Guardado MD Attending [...] can cause constipation, so you may take cyrx-arq-zbtgynx stool softeners (Senok ot-S, Miralax, Colace) following [...] ----- ----- ----- When to Call: JO-ANN extractor operator after hours and ask for the Surgery Physician A ssistant, Nurse or Surgery Resident power station operator if you have any of the followin. [...] 10/06/2017 9:30 AM Alison Garcia Urology at [facility] [phone] Urology 12/20/2017 8:30 AM Keyla Adam; AUDIO CASTELLON 4 Otolaryngology Audiology Services at [facility] [phone] Otolaryngo Our schedulers will contact you to make an appointment. Your appointment will be on the 10t h floor of the [facility]. If you do not hear from our schedulers in call the clinic at . Please call [...] 10/06/2017 9:30 AM Alison Garcia [facility]rology at [facility] [phone] Urology 12/20/2017 8:30 AM Keyla Adam; AUDIO CASTELLON 4 Otolaryngology Audiology Services at [facility] [phone] Otolaryngolo ----- Condition On Discharge: Good Vital [...] Take 100 mg by mouth once daily. LANTUS SOLOSTAR U-100 INSULIN 100 unit/mL (3 mL) Inpn [...] questions. Mario Guardado MD Urology PGY-1 Pg [phone] [facility] [address]A [id number] [place] [address] Associated attestation - Cristy Rubin MD - 09/17/2017 10:05 AM PDTI agree with discharge summary as written by Dr. Guardado. Pt will follow up in 3 weeks. Alex Rubin MD Video Production Coordinator Department of Urology [facility] in this encounter Discharge Instructions Xochilt [...] NOTE Hospital Day #: 4 Attending Surgeon: Cristy Rubin MD ID: Eliceo Nguyen is a [...] Intake/Output Summary (Last 24 hours) at 09/17/17 0741 Last data filed at 09/17/17 0429 Gross [...] 2.2 H&H 7.9/26.1 (from 7.3/24.4 yesterday) Imaging: [facility] ABDOMINAL DUPLEX LTD ARTERY VEIN [...] Please page the Vascular Surgery Team pager #[phone] with questions. Eder Gann M.D., M.P.H. Neurological Surgery Resident PGY-1 Pager: [phone] This assessment and plan was formulated both independently and in conjunction with the [facility] ular Surgery Team as well as the [...] primary team Doroteo Lawton MD Vascular Surgery Pattern Keeper Please page the Vascular Surgery Team pager# [phone] for questions Current Facility-Administered Medications: acetaminophen (TYLENOL) tablet 650 mg, 650 mg, o ral, Q4H PRN, Mario Guardado MD, 650 mg at 09/15/17 0839 artificial tears (dextran 70-hypromellose) (NATURE'S TEARS) 0.1-0.3 % ophthalmic drops 1 dr op, 1 drop, Both Eyes, PRN, Kobe Baeza MD aspirin chewable tablet 81 mg, 81 mg, oral, DAILY, Mario Guardado MD, 81 mg at 09/16/17 0837 bisacodyl (DULCOLAX) suppository 10 mg, 10 mg, rectal, DAILY PRN, Kobe Baeza MD calcium carbonate chewable (TUMS) tablet 200 mg elemental, 500 mg total salt, oral, TID PRN , Kobe Baeza MD dextrose 50 % in water IV 25 mL, 25 mL, intravenous, PRN, Nata Roland MD glucagon (GLUCAGEN) injection 1 mg, 1 mg, intramuscular, PRN, Nata Roland MD glucose chewable tablet 16 g, 16 g, oral, PRN, Nata Roland MD heparin injection 5,000 Units, 5,000 Units, subcutaneous, Q8H, Kobe Baeza MD, 5,000 Unit s at 09/16/17 0639 HYDROmorphone (DILAUDID) injection 0.2-0.6 mg, 0.2-0.6 mg, intravenous, Q2H PRN, Mario Guardado MD insulin lispro (HUMALOG) injection, , subcutaneous, QID, Nata Roland MD, 2 Units at 0838 menthol (sugar free) (COUGH DROP) lozenge 5 mg, 1 lozenge, oral, PRN, Kobe Baeza MD naloxone (NARCAN) injection 40 mcg, 40 mcg, intravenous, PRN, Kobe Baeza MD omeprazole (PRILOSEC) oral suspension (compound) 20 mg, 20 mg, oral, BEFORE BREAKFAST, Michelle Roland MD, 20 mg at 09/16/17 0836 ondansetron ODT (ZOFRAN ODT) tablet 4 mg, 4 mg, oral, Q12H PRN, Nata Roland MD, 4 mg a t 09/14/17 0717 oxybutynin (DITROPAN) tablet 5 mg, 5 mg, oral, TID PRN, Kobe Baeza MD oxyCODONE (immediate release) (ROXICODONE) liquid 5-15 mg, 5-15 mg, oral, Q4H PRN, Cristy Rubin MD, 10 mg at 09/15/17 2144 polyethylene glycol (MIRALAX) packet 34 g, 34 g, oral, TID PRN, Kobe Baeza MD potassium, sodium phosphates (NEUTRA-PHOS, PHOS-NAK) 280-160-250 mg packet 1 packet, 1 pack et, oral, QID, Mario Guardado MD, 1 packet at 09/16/17 0934 senna-docusate (SENOKOT S) 8.6-50 mg 1 tablet, 1 tablet, oral, BID, Kobe Baeza MD, 1 tab let at 09/16/17 0837 simvastatin (ZOCOR) tablet 40 mg, 40 mg, oral, QPM, Kobe Baeza MD, 40 mg at 09/15/17 214 4 Associated attestation - Christian Mckeon MD - 09/17/2017 8:43 AM PDTI saw and evaluated t he patient. I agree with the findings and the plan of care as documented in the resident s note. Christian Mckeon M.D. [facility] Vascular Surgery [address] [place] [address], [address] [address] Email: [email or web address] Mario Guardado MD - 09/16/2017 8:52 AM PDTFormatting of this note may be different fr om the original. Urology Progress Note Hospital Day: 3 Author: KOBE BAEZA MD Attending Physician: Cristy Rubin MD Patient: ELICEO NGUYEN [id number] 24H events/Subjective: ELVIS overnight. Pain is well [...] patient is Cristy Rubin MD. MD Jered Laughlin Christopher J, MD - 09/15/2017 1:34 PM PDTFormatting of [...] primary team Doroteo Lawton MD Vascular Surgery Pattern Keeper Please page the Vascular Surgery Team pager# [phone] for questions Current Facility-Administered Medications: acetaminophen (TYLENOL) tablet 650 mg, 650 mg, o ral, Q4H PRN, Mario Guardado MD, 650 mg at 09/15/17 0839 artificial tears (dextran 70-hypromellose) (NATURE'S TEARS) 0.1-0.3 % ophthalmic drops 1 dr op, 1 drop, Both Eyes, PRN, Kobe Baeza MD aspirin chewable tablet 81 mg, 81 mg, oral, DAILY, Mario Guardado MD, 81 mg at 09/15/17 0838 bisacodyl (DULCOLAX) suppository 10 mg, 10 mg, rectal, DAILY PRN, Kobe Baeza MD calcium carbonate chewable (TUMS) tablet 200 mg elemental, 500 mg total salt, oral, TID PRN , Kobe Baeza MD dextrose 50 % in water IV 25 mL, 25 mL, intravenous, PRN, Nata Roland MD glucagon (GLUCAGEN) injection 1 mg, 1 mg, intramuscular, PRN, Nata Roland MD glucose chewable tablet 16 g, 16 g, oral, PRN, Nata Roland MD heparin injection 5,000 Units, 5,000 Units, subcutaneous, Q8H, Kobe Baeza MD, 5,000 Unit s at 09/15/17 1319 HYDROmorphone (DILAUDID) injection 0.2-0.6 mg, 0.2-0.6 mg, intravenous, Q2H PRN, Mario Guardado MD insulin lispro (HUMALOG) injection, , subcutaneous, QID, Nata Roland MD, 2 Units at 1321 menthol (sugar free) (COUGH DROP) lozenge 5 mg, 1 lozenge, oral, PRN, Kobe Baeza MD naloxone (NARCAN) injection 40 mcg, 40 mcg, intravenous, PRN, Kobe Baeza MD omeprazole (PRILOSEC) oral suspension (compound) 20 mg, 20 mg, oral, BEFORE BREAKFAST, Michelle Roland MD, 20 mg at 09/15/17 0836 ondansetron ODT (ZOFRAN ODT) tablet 4 mg, 4 mg, oral, Q12H PRN, Nata Roland MD, 4 mg a t 09/14/17 0717 oxybutynin (DITROPAN) tablet 5 mg, 5 mg, oral, TID PRN, Kobe Baeza MD oxyCODONE (immediate release) (ROXICODONE) liquid 5-15 mg, 5-15 mg, oral, Q4H PRN, Cristy Rubin MD, 5 mg at 09/15/17 1210 polyethylene glycol (MIRALAX) packet 34 g, 34 g, oral, TID PRN, Kobe Baeza MD senna-docusate (SENOKOT S) 8.6-50 mg 1 tablet, 1 tablet, oral, BID, Kobe Baeza MD, 1 tab let at 09/15/17 0838 simvastatin (ZOCOR) tablet 40 mg, 40 mg, oral, QPM, Kobe Baeza MD, 40 mg at 09/14/17 211 9 Associated attestation - Christian Mckeon MD - 09/15/2017 5:55 PM PDTI saw and evaluated t he patient. I agree with the findings and the plan of care as documented in the resident s note. Christian Mckeon M.D. [facility] Vascular Surgery [address] [place] [address], [address] [address] Email: [email or web address] Kobe Baeza MD - 09/15/2017 8:50 AM PDTFormatting of this note may be different from lashay hilario. Urology Progress Note Hospital Day: 2 Author: KOBE BAEZA MD Attending Physician: Cristy Rubin MD Patient: ELICEO NGUYEN [id number] 24H events/Subjective: ELVIS overnight. Pain is well [...] Date 09/14/17 1500 - 09/15/17 0659 09/15/17 07 - 09/16/17 0659 Shift [id number] 24 Hour Total 3191-1776 [id number] [id number] 24 Hour Total I N T A [...] mg, intravenous, Q2H PRN HYDROmorphone 0.5 mg/mL BOOKKEEPING MACHINE OPERATOR (ADULT STANDARD DOSE) in 0.9 % NaCl, , intravenous, CONTINUOUS HYDROmorphone 0.5 mg/mL rescue bolus from BOOKKEEPING MACHINE OPERATOR (ADULT STANDARD DOSE) 0.2 mg, 0.2 mg, [...] for this patient is Cristy Rubin MD. Kobe Baeza MD Urology Pager [phone] Nata Roland MD - 09/14/2017 3:04 PM PDTFormatting of this note may be different fro m the original. Cardiovascular Intensive Care Unit Team Progress Note CVICU D2 Assigned #[id number] Admission dx: N28.89 (ICD-10-CM) - 593.9 (ICD-9-CM) - RENAL MASS Days in ICU 1 Days in Hospital Abbreviated HPI / Daily Assessment Mr. 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 24 Hour events -arterial line d/c -softer pressures overnight, but did not receive IVF bolus -pain well controlled with BOOKKEEPING MACHINE OPERATOR -CLD Code Status Code Status Full Code Active Diagnosis with Assessment & Plan Priority Class POA Head/Neck Cochlear implant in place Yes Current Assessment & Plan Working well. Able to hear well except over the phone. Cardiovascular Essential hypertension Yes Current Assessment & Plan Well controlled with valsartan MANAGER SHELL. -Hold in post-operative period Digestive Gastroesophageal reflux disease Yes Current Assessment & Plan On pantoprazole as outpatient. -Continue omeprazole (formulary) Dysphagia Unknown Current Assessment & Plan Has had issues with swallowing and dysphagia for quite some time. Crushes all meds and ta kes them with applesauce. ENVIRONMENTAL SCIENTISTS consult and recommend barium swallow. -CLD -Barium swallow today -ENVIRONMENTAL SCIENTISTS following Hematologic Acute blood loss anemia Unknown [...] Vena cava graft done by vascular. Has BOOKKEEPING MACHINE OPERATOR. 6.3 L crystalloid given during the case-no blood products given (1200 mL EBL). Did well overnight HD and with pain control. -Continue motta per urology -HM BOOKKEEPING MACHINE OPERATOR -CLD until ENVIRONMENTAL SCIENTISTS eval/uro approval -Closely monitor hemodynamics -[facility] status Code Status Updated to: FULL Physical [...] Cristy Rubin MD Admitting Provider Urological Surgery [id number] The Advanced Care Note for this patient can be found under the notes tab in chart review. Quality section Motta necessity reviewed: Acute urinary retention or obstruction FAST HUG Feeding: clears Analgesia: BOOKKEEPING MACHINE OPERATOR Sedation: n/a Thromboprophylaxis: Heparin SQ Head of Bed: Speech and swallow evaluation Ulcer Prophylaxis: Omeprazole Glycemic Control: insulin sliding Created by Nata Roland MD Author:Nata Roland MD [address] [address] [place] [address]Ezckc, Alan J, MD - 09/14/2017 10:11 AM PDTFormatting of this note m ay be different from the original. Cardiovascular Intensive Care Unit Attending Progress Note CVICU D2 Assigned #[id number] Hospital admission dx: N28.89 (ICD-10-CM) - 593.9 [...] if Hct drops - pain control w/ BOOKKEEPING MACHINE OPERATOR - bronchiole hygiene - mobilize - speech/swallow eval, if advance diet stop IVF Dispo: stable for [facility] Hospital Problems Priority POA Head/Neck Cochlear implant [...] Cristy Rubin MD Admitting Provider Urological Surgery [id number] Code Status Code Status Full Code The [...] exceptions/additions as noted. Date of Service: 09/14/2017 [facility] DEPARTMENT: ANE ICU CARDIAC Place of Service:- Inpatient CSN: [id number] Suggested Modifier: GC - Resident Involved Suggested CPT: TO CHILD NUTRITION DIRECTOR Author:Moustapha Lema MD [address] [place] [address]BxeglllMario panchal MD - 09/14/2017 8:33 AM PDTUrology Progress Not e Hospital Day: 1 Author: Mario Guardado MD Attending Physician: Cristy Rubin MD Patient: ELICEO NGUYEN [id number] 24H events/Subjective: No acute events overnight Pt [...] suspected dysphagia vs. Pharyngeal diverticulum - Continue BOOKKEEPING MACHINE OPERATOR pain control - Heparin prophylaxis - Maintain motta catheter - Oxybutynin for bladder discomfort due to motta #Caval graft - Aspirin 81mg daily The attending of record for this patient is Cristy Rubin MD. Mario Guardado MD Department of Urology [facility] Madiha Ramirez MD - 09/14/2017 6:08 AM PDTFormatting of this note may be different fr om the original. Attending Surgeon: Rosalino Young Author: Madiha Ramirez MD Date: 09/14/2017 [...] with patient has return of bowel function. Rosalino Young MD is the attending surgeon and agrees with my assessment and plan. Madiha Ramirez MD General Surgery Kimberly Shepherd PA - 09/13/2017 10:51 PM PDTFormatting of this note may be different from the original. Cardiovascular Intensive Care Unit Clinical Update Note Team: D2 Team Pager: [phone] Attending: Dr. Rios Pt Name: Eliceo Nguyen ID: Abbreviated HPI Abbreviated HPI / Daily Assessment Mr. 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 Update: Pain well controlled with HM BOOKKEEPING MACHINE OPERATOR. A-line no longer correlating with cuff BP [...] post nephrectomy Unknown Plan: - continue HM BOOKKEEPING MACHINE OPERATOR - d/c a-line - SSI - cbc [...] e. Date of Service: 09/13/2017 [facility] EPIC DEPARTMENT: ANE ICU CARDIAC Place of Service:- Inpatient CSN: [id number] Suggested Modifier: None Suggested CPT: TO CHILD NUTRITION DIRECTOR MCKAYLA [facility]IEYRA in this encounter Plan of Treatment +--------+ + + + + | Date | Type | Specialty | Care Team | Description | +--------+ + + + + | 12/20/ | Diagnostic | Charge Loader | Nils Woody, | | | 2017 | Visit | | [address]RET[address] | | | | | [address] | | | | | | [place], [place] | | | | | | [address] | | | | | | | [...] + | [facility] | [address] | [place], [place] | | | TORSTEN TSAI OF [place] | [address] | [address] | | | TESTS | | | [...] (H) | 35.1 - 46.3 fL | [facility] | | | | | SERVICES, CORE | + + + + + | PLATELET COUNT | 373 | 150 - 400 K/cu mm | [facility] | | | | | SERVICES, CORE | + + + + + | MPV | 10.4 | 9.7 - 12.3 fL | [facility] | | | | | SERVICES, CORE | + + + + + | NRBC% | 0.0 | 0.0 - 0.3 % | [facility] | | | | | SERVICES, CORE | + + + + + | NRBC# | 0.00 | 0.00 - 0.02 K/cu mm | [facility] | | | | | [...] | + + + + + | [facility] | [address] | [place] [address] | | | SERVICES, CORE | [address] | | | + + + + + PHOSPHORUS, PLASMA (09/17/2017 4:50 AM) + +---------+ + + | Component | Value | Ref Range | Performed At | + +---------+ + + | PHOSPHORUS, PLASMA | 2.2 (L) | 2.4 - 4.7 mg/dL | [facility] | | (LAB) | | | SERVICES, CORE | + +---------+ + + + + | Specimen | + + | Blood - Blood | + + + + + + + | Performing | Address | City/State/Zipcode | Phone Number | | Organization | | | | + + + + + | [facility] | [address] | [place] [address] | | | SERVICES, [place] | [address] | | | + + + + + MAGNESIUM, PLASMA (09/17/2017 4:50 AM) + +-------+ + + | Component | Value | Ref Range | Performed At | + +-------+ + + | MAGNESIUM,PLASMA | 2.0 | 1.6 - 2.6 mg/dL | [facility] | | | | | [...] + + | [facility] | [address] | [place] [address] | | | SERVICES, CORE | [address] [...] >60 mL/min | [facility] | | ICELANDIC | | | TAMIKA, CORE | + +---------+ + + | EGFR NON | >60 | >60 mL/min | [facility] | | -ICELANDIC | | | TAMIKA, CORE | + [...] LABORATORY | | (LAB) | | | [facility], CORE | + +---------+ + + | CALCIUM, PLASMA | 8.2 (L) | 8.6 - 10.2 mg/dL | [facility] | | (LAB) | | | SERVICES, CORE | + +---------+ + + | ANION GAP | 6 | 4 - 11 mmol/L | [facility] | | | | | SERVICES, CORE | + +---------+ + + | POTASSIUM CMNT | No Hemo | | [facility] | | | | | SERVICES, CORE | + +---------+ + + + + | Specimen | + + | Blood - Blood | + + + + + | Narrative | Performed At | + + + | GFR is estimated using the MDRD equation recommended by the | [facility] | | National Kidney Disease Education [...] | + + + + + | [facility] [email or web address] | [address] | [place] [address] | | | XENIA LUNDBERG | [address] | | | + + + [...] + + + + + | [facility] | [address] | [place], [place] | | | TORSTEN TSAI OF CARE | [facility] | [address] | | | TESTS | | | [...] + + | [facility] | [address] | [place], [place] | | | QUIN POINT OF CARE | [address] | [address] | | | TESTS | | | [...] + + + | [facility] | [address] | [place], [place] | | | TORSTEN TSAI OF [facility] | [address] | [address] | | | TESTS | | | [...] Note | + + | Service Account, [employer] Res In Interface - 09/16/2017 12:28 PM [...] | | + +---------+ + + | [facility] | | | | | [facility] | | | | + +---------+ [...] | + + + + + | [facility] | [address] | [place], [place] | | | TORSTEN TSAI OF [facility] | [address] | [address] | | | TESTS | | | | + + + + + CBC (HEMOGRAM) ONLY (09/16/2017 4:16 AM) + + + + + | Component | Value | Ref Range | Performed At | + + + + + | WHITE CELL COUNT | 9.09 | 3.50 - 10.80 K/cu mm | [facility] | | | | | SERVICES, [...] 10.5 | 9.7 - 12.3 fL | [facility] [...] | + + + + + | [facility] | [address] | [place] [address] | | | TAMIKA, XENIA | [address] | | | + + + + + PHOSPHORUS, PLASMA (09/16/2017 4:16 AM) + +---------+ + + | Component | Value | Ref Range | Performed At | + +---------+ + + | PHOSPHORUS, PLASMA | 2.1 (L) | 2.4 - 4.7 mg/dL | [facility] | | (LAB) | | | X[address] | + +---------+ + + + + | Specimen | + + | Blood - Blood | + + + + + + + | Performing | Address | City/State/Zipcode | Phone Number | | Organization | | | | + + + + + | [facility] | [address] | [place] [address] | | | SERVICES, [place] | [address] | | | + + + + + MAGNESIUM, PLASMA (09/16/2017 4:16 AM) + +-------+ + + | Component | Value | Ref Range | Performed At | + +-------+ + + | MAGNESIUM,PLASMA | 1.9 | 1.6 - 2.6 mg/dL | [facility] [...] [facility] | [address] | [place] [address] | | | [facility] | [address] | | | + + + + + BASIC METABOLIC SET (NA, K, CL, TCO2, BUN, CR, GLU, CA) (09/16/2017 4:16 AM) + +---------+ + + | Component | Value | Ref Range | Performed At | + +---------+ + + | GLUCOSE, PLASMA | 160 (H) | 70 - 99 mg/dL | [facility] | | (LAB) | | | SERVICES, CORE | + +---------+ + + | BUN, PLASMA (LAB) | 15 | 6 - 20 mg/dL | [facility] | | | | | TAMIKA, CORE | + +---------+ + + | CREATININE PLASMA | 0.99 | 0.70 - 1.30 mg/dL | [facility] | | (LAB) | | | SERVICES, CORE | + +---------+ + + | EGFR - | >60 | >60 mL/min | [facility] | | ICELANDIC | | | SERVICES, CORE | + +---------+ + + | EGFR NON | >60 | >60 mL/min | [facility] | | -ICELANDIC | | | SERVICES, CORE | + [...] | + + + + + | [facility] | [address] | [place] [address] | | | SERVICES, CORE | [address] [...] + | [facility] | [address] | [place], [place] | | | QUIN POINT OF CARE | [facility] | [address] | | | TESTS | | | [...] | [facility] | [address] | [place], [place] | | | QU[place] POINT OF CARE | [address] | [address] | | | TESTS | | | [...] + | [facility] | [address] | [place], [place] | | | [place], POINT OF CARE | [address] | [address] | | | TESTS | | | [...] | [facility] | [address] | [place], [place] | | | [place] [facility] | [address] | [address] | | | TESTS | | | | + + + + + CBC (HEMOGRAM) ONLY (09/15/2017 5:25 AM) + + + + + | Component | Value | Ref Range | Performed At | + + + + + | WHITE CELL COUNT | 11.47 (H) | 3.50 - 10.80 K/cu mm | [facility] | | | | | [...] (L) | 41.0 - 53.0 % | [facility] | | | | | SERVICES, CORE | + + + + + | MCV | 79.1 (L) | 80.0 - 100.0 fL | [facility] | | | | | SERVICES, [...] + + + + + | [facility] | [address] | [place] [address] | | | SERVICES, [place] | [address] | | | + + + + + PHOSPHORUS, PLASMA (09/15/2017 5:25 AM) + +---------+ + + | Component | Value | Ref Range | Performed At | + +---------+ + + | PHOSPHORUS, PLASMA | 2.2 (L) | 2.4 - 4.7 mg/dL | [facility] | | (LAB) | | | [address] | + +---------+ + + + + | Specimen | + + | Blood - Blood | + + + + + + + | Performing | Address | City/State/Zipcode | Phone Number | | Organization | | | | + + + + + | [facility] | [address] | [place] [address] | | | SERVICES, CORE | [address] | | | + + + [...] [facility] | [address] | [place] [address] | | | SERVICES, CORE | [address] [...] >60 mL/min | [facility] | | ICELANDIC | | | SERVICES, CORE | + +---------+ + + | EGFR NON | >60 | >60 mL/min | [facility] | | -ICELANDIC | | | SERVICES, CORE | + [...] 24 | 21 - 32 mmol/L | [facility] [...] | + + + + + | [facility] | [address] | [place] [address] | | | SERVICES, CORE | [address] | | | + + + [...] + | [facility] | [address] | [place], [place] | | | QUIN POINT OF CARE | [facility] | [address] | | | TESTS | | | | + + + + + CAPILLARY BLOOD GLUCOSE (NO CHG), POC (09/14/2017 5:43 PM) + +---------+ + + | Component | Value | Ref Range | Performed At | + +---------+ + + | BLOOD GLUCOSE, POC | 152 (H) | 70 - 99 mg/dL | [facility] | | | | | TORSTEN TSAI OF | | | | | CARE TESTS | + +---------+ + + + + + + + | Performing | Address | City/State/Zipcode | Phone Number | | Organization | | | | + + + + + | [facility] | [address] | [place], [place] | | | QU[place] POINT OF CARE | [address] | [address] | | | TESTS | | | | + + + + + MODIFIED BARIUM SWALLOWING (09/14/2017 3:00 PM) + + + | Narrative | Performed At | + + + | EXAM: Modified Barium Swallow HISTORY: ENVIRONMENTAL SCIENTISTS | [facility] | | recommended. Patient with [...] EXAM: Modified | | Barium Swallow HISTORY: ENVIRONMENTAL SCIENTISTS recommended. Patient with problems swallowing. Recent | [...] necessary, edited the report. I agree with lashay daigle report as now presented. | | | [...] Note | + + | Service Account, ADINCON Res In Interface - 09/15/2017 10:05 AM [...] Performed At | + + + | Rosalino Young MD 09/19/2017 5:06 PM Date: 09/13/2017 | | | Author: Rosalino Young MD Attending Surgeon: Rosalino Young MD | | | Co-Surgeon: Alex [...] team. This has been electronically signed by ROSALINO YOUNG MD, | | | 09/14/2017 at [...] + | [facility] | [address] | [place], [place] | | | QUIN POINT OF CARE | [address] | [address] | | | TESTS | | | [...] 10.3 | 9.7 - 12.3 fL | [facility] | | | | | SERVICES, CORE | + + + + + | NRBC% | 0.0 | 0.0 - 0.3 % | [facility] | | | | | SERVICES, CORE | + + + + + | NRBC# | 0.00 | 0.00 - 0.02 K/cu mm | [facility] | | | | | SERVICES, CORE | + + + + + + + | Specimen | + + | Blood - Blood | + + + + + | Narrative | Performed At | + + + | New reference ranges for MCV, MCHC, PLT, IG% and IG# effective | [facility] | | 08/04/2017 | LABORATORY | | | XENIA LUNDBERG | + + + + + + + + | Performing | Address | City/State/Zipcode | Phone Number | | Organization | | | | + + + + + | [facility] | [address] | [place] [address] | | | XENIA LUNDBERG | [address] | | | + + + + + PHOSPHORUS, PLASMA (09/14/2017 12:02 AM) + +-------+ + + | Component | Value | Ref Range | Performed At | + +-------+ + + | PHOSPHORUS, PLASMA | 3.8 | 2.4 - 4.7 mg/dL | [facility] | | (LAB) | | | SERVICES, CORE | + +-------+ + + + + | Specimen | + + | Blood - Blood | + + + + + + + | Performing | Address | City/State/Zipcode | Phone Number | | Organization | | | | + + + + + | [facility] | [address] | [place] [address] | | | SERVICES, CORE | [address] | | | + + + + + MAGNESIUM, PLASMA (09/14/2017 12:02 AM) + +-------+ + + | Component | Value | Ref Range | Performed At | + +-------+ + + | MAGNESIUM,PLASMA | 1.9 | 1.6 - 2.6 mg/dL | [facility] [...] | + + + + + | [facility] | [address] | [place] [address] | | | XENIA LUNDBERG | [address] | | | + [...] >60 mL/min | [facility] | | ICELANDIC | | | TAMIKA, CORE | + +---------+ + + | EGFR NON | >60 | >60 mL/min | [facility] | | -ICELANDIC | | | SERVICES, CORE | + [...] | Interpretive Information: <60 mL/min/1.73 sq | [facility] | | m Chronic Kidney Disease <15 [...] | + + + + + | [facility] | [address] | [place] [address] | | | TAMIKA, XENIA | [address] | | | + + + + [...] + | [facility] | [address] | [place], [place] | | | QUIN POINT OF CARE | [address] | [address] | | | TESTS | | | [...] + | [facility] | [address] | [place], [place] | | | TORSTEN TSAI OF CARE | [address] | [address] | | | TESTS | | | [...] 0.0 | 0.0 - 0.3 % | [facility] | | | | | SERVICES, CORE | + + + + + | NRBC# | 0.00 | 0.00 - 0.02 K/cu mm | [facility] | | | | | SERVICES, CORE | + + + + + + + | Specimen | + + | Blood - Blood | + + + + + | Narrative | Performed At | + + + | New reference ranges for MCV, MCHC, PLT, IG% and IG# effective | [facility] | | 08/04/2017 | LABORATORY | | | SERVICES, CORE | + + + + + + + + | Performing | Address | City/State/Zipcode | Phone Number | | Organization | | | | + + + + + | [facility] | [address] | [place] [address] | | | SERVICES, CORE | [address] | | | + + + [...] >60 mL/min | [facility] | | ICELANDIC | | | SERVICES, CORE | + +---------+ + + | EGFR NON | >60 | >60 mL/min | [facility] | | -ICELANDIC | | | SERVICES, CORE | + [...] LABORATORY | | (LAB) | | | [facility] | + +---------+ + + | POTASSIUM CMNT | No Hemo | | [facility] | | | | | SERVICES, [facility] | + +---------+ + + | ANION GAP | 7 | 4 - 11 mmol/L | [facility] | | | | | SERVICES, CORE | + +---------+ + + | ANION GAP(ALB | 11 | 4 - 11 mmol/L | [facility] | | CORRECTED) | | | [facility] | + +---------+ + + + + | Specimen | + + | Blood - Blood | + + + + + | Narrative | Performed At | + + + | GFR is estimated using the MDRD equation recommended by the | [facility] | | National Kidney Disease Education Program. Estimated GFR | LABORATORY | | Interpretive Information: <60 mL/min/1.73 sq | [facility] | | m Chronic Kidney Disease <15 [...] | + + + + + | [facility] | [address] | [place] [address] | | | XENIA LUNDBERG | [address] | | | + + + + + X-RAY PORTABLE CHEST 1 VIEW (09/13/2017 3:54 PM) + + + | Narrative | Performed At | + + + | EXAM: GA CHEST 1 VIEW HISTORY: verify central line [...] Leon MD Dictation initiated: Eduin Otoole | | Devon Leon MD 09/13/2017 3:33 PM | | + + + + + | Procedure Note | + + | Service Account, Radiant Res In Interface - 09/13/2017 3:54 PM PDT EXAM: GA CHEST 1 | | VIEW HISTORY: verify [...] + + + + + | [facility] | [address] [facility] [address] | [place], [place] | | | [place] | [address] | [address] | | | TESTS | | | [...] | Primary surgeon: Alex Rubin MD Co-surgeon: Rosalino Young MD First | | | Asst.: Kobe Baeza MD Anesthesia: General Estimated blood | [...] this and as such all of the Helnea tourniquet as | | | well as [...] bleeding was controlled with the argon beam catering staff member. Dr. Young | | | was consulted [...] case. Alex Rubin MD | | | Video Production Coordinator Department of Urology [facility] | | | University | | + + + ABG-FULL ABL, [...] | 72 - 104 mmHg | [facility] | | | | | QUIN POINT OF | | | | | CARE TESTS | + + + + + | PCO2 ARTERIAL, POC | 42 | 32 - 43 mmHg | [facility] | | | | | QUIN POINT OF | | | | | CARE TESTS | + + + + + | TOTAL HEMOGLOBIN, | 7.4 (L) | 13.5 - 17.5 g/dL | [facility] | | POC | | | QUIN POINT OF | | | | | CARE TESTS | + + + + + | O2 SAT ARTERIAL, POC | 98.5 (H) | 92.0 - 98.0 % | [facility] | | | | | QUIN [...] 41.0 - 53.0 % | [facility] | | [...] 1.14 - 1.32 mmol/L | [facility] | | | | | QUIN, POINT [...] + + + + | [facility] | [address] | [place], [place] | | | QUIN POINT OF CARE | [address] | [address] | | | TESTS | | | | + + + + + ABG-FULL ABL, POC (09/13/2017 1:12 PM) + + + + + | Component | Value | Ref Range | Performed At | + + + + + | PH ARTERIAL, POC | 7.42 | 7.37 - 7.44 | [facility] | | | | | TORSTEN TSAI OF | | | | | CARE TESTS | + + + + + | PO2 ARTERIAL, POC | 147 (H) | 72 - 104 mmHg | [facility] | | | | | QUIN, POINT OF | | | | | CARE TESTS | + + + + + | PCO2 ARTERIAL, POC | 40 | 32 - 43 mmHg | [facility] | | | | | QUIN POINT OF | | | | | CARE TESTS | + + + + + | TOTAL HEMOGLOBIN, | 7.5 (L) | 13.5 - 17.5 g/dL | [facility] | | POC | | | QUIN POINT OF | | | | | CARE TESTS | + + + + + | O2 SAT ARTERIAL, POC | 99.2 (H) | 92.0 - 98.0 % | [facility] | | | | | QUIN POINT OF | | | | | CARE TESTS | + + + + + | OXYHEMOGLOBIN, POC | 97.1 | 94.0 - 100 % | [facility] | | | | | QUIN POINT OF | | | | | CARE TESTS | + + + + + | HEMATOCRIT, POC | 23.0 (L) | 41.0 - 53.0 % | [facility] | | | | | QUIN, POINT OF | | | | | CARE TESTS | + + + + + | POTASSIUM, POC | 4.0 | 3.4 - 5.0 mmol/L | [facility] [...] 1.14 - 1.32 mmol/L | [facility] | | | | | QUIN, POINT [...] | + + + + + | [facility] | [address] | [place], [place] | | | TORSTEN TSAI OF CARE | [facility] | [address] | | | TESTS | | | [...] 72 - 104 mmHg | [facility] | | | | | QUIN, POINT OF | | | | | CARE TESTS | + + + + + | PCO2 ARTERIAL, POC | 40 | 32 - 43 mmHg | [facility] | | | | | UQIN, POINT OF | | | | | [...] 4.2 | 3.4 - 5.0 mmol/L | [facility] | | | [...] 0.5 - 1.6 mmol/L | [facility] | | POC | | | QUIN, POINT OF | | | | | CARE TESTS | + + + + + | METHEMOGLOBIN, POC | 0.7 | 0.0 - 1.9 % | [facility] | | | | | QUIN POINT OF | | | | | CARE TESTS | + + + + + | PAT TEMP ART, POC | 37.0 | | [facility] | | | | | QUIN POINT OF | | | | | CARE TESTS | + + + + + + + | Specimen | + + | Blood - Blood | + + + + + + + | Performing | Address | City/State/Zipcode | Phone Number | | Organization | | | | + + + + + | [facility] | [address] | [place], [place] | | | QUIN [facility] OF [facility] | [address] | [address] | | | TESTS | | | | + + + + + SURGICAL PATHOLOGY (09/13/2017 12:02 PM) + + + + + | Component | Value | Ref Range | Performed At | + + + + + | Clinical History | N28.89 (ICD-10-CM) - | | [facility] | | | 593.9 (ICD-9-CM) - RENAL | | OF PATHOLOGY | | | MASS | | | + + + + + | Final Pathologic | A. Right kidney and | | [facility] | | Diagnosis | adrenal [...] | SYNOPTIC REPORTS | KIDNEY: | | [facility] | | | Nephrectomy (Kidney | [...] | Received are 6 specimens | | [facility] | | | fresh in containers | | OF PATHOLOGY | | | labeled with the | | | | | patient's name (initials | | | | | DG) and medical record | | | | | number [id number]. | | | | | Kidney, Right [...] | =blackSubmitted: | | | | | Manufacturing Manager A1: Renal | | | | | [...] 9 | | | | | o'clock. Manufacturing Manager | | | | | sections are [...] Intraoperative use | Frozen section | | [facility] | | only - Final | [...] | ANCILLARY | Analyte specific | | [facility] | | INFORMATION | reagents [...] | | | | | determined by [facility] | | | | | laboratories. [...] | + + + + + | [facility] | [address] | [place] [address] | | | PATHOLOGY | [address] | | | + + + + + PRODUCT - RED CELLS LEUKOREDUCED (09/13/2017 11:39 AM) + + + + + | Component | Value | Ref Range | Performed At | + + + + + | PRODUCT DESCRIPTION | -1 RED BLOOD CELL | | [facility] | | | ADENINE-SALINE ADDED | | SERVICES, | | | LEUKOCYTE | | TRANSFUSION | | | | | MEDICINE | + + + + + | PRODUCT UNIT # | [id number] | | [facility] | | | [...] + + + | EXPIRATION DATE | [id number] | | [facility] | | | [...] + + | BLOOD PRODUCT CODE | [id number] | | [facility] | | | | | SERVICES, | | | | | TRANSFUSION | | | | | MEDICINE | + + + + + + + + + + | Performing | Address | City/State/Zipcode | Phone Number | | Organization | | | | + + + + + | [facility] | [address] | [place] [address] | | | SERVICES, | [address] [...] + + | PRODUCT UNIT # | [id number] | | [facility] | | | [...] + + + | EXPIRATION DATE | [id number] | | [facility] | | | [...] + + | BLOOD PRODUCT CODE | [id number] | | [facility] | | | | | SERVICES, | | | | | TRANSFUSION | | | | | MEDICINE | + + + + + + + + + + | Performing | Address | City/State/Zipcode | Phone Number | | Organization | | | | + + + + + | [facility] | [address] | [place] [address] | | | SERVICES, | [address] | | | | TRANSFUSION MEDICINE | | | | + + + + + VINI-DANA MON (09/13/2017 11:30 AM) + + + + + | Component | Value | Ref Range | Performed At | + + + + + | PH ARTERIAL, POC | 7.42 | 7.37 - 7.44 | [facility] | | | | | QUIN, POINT OF | | | | | CARE TESTS | + + + + + | PO2 ARTERIAL, POC | 165 (H) | 72 - 104 mmHg | [facility] | | | [...] [facility] | | POC | | | QUIN POINT OF | [...] 97.3 | 94.0 - 100 % | [facility] [...] 134 - 143 mmol/L | [facility] | | [...] 0.5 - 1.6 mmol/L | [facility] | | POC | | | QUIN POINT OF | [...] + | [facility] | [address] | [place], [place] | | | QUIN POINT OF CARE | [address] | [address] | | | TESTS | | | | + + + + + VINI-DANA MON (09/13/2017 9:39 AM) + + + + + | Component | Value | Ref Range | Performed At | + + + + + | PH ARTERIAL, POC | 7.44 | 7.37 - 7.44 | [facility] [...] 134 - 143 mmol/L | [facility] | | | | | QUIN, POINT OF | | | | | CARE TESTS | + + + + + | ALINE IONIZED CA, POC | 1.18 | 1.14 - 1.32 mmol/L | [facility] | | | | | QUIN, POINT OF | | | | | CARE TESTS | + + + + + | CHLORIDE, POC | 105 | 97 - 108 mmol/L | [facility] | | | | | QUIN, POINT [...] + | [facility] | [address] | [place], [place] | | | QUIN POINT OF CARE | [address] | [address] | | | TESTS | | | [...] [facility] | [address] | [place] [address] | | | TAMIKA | [address] | | | | TRANSFUSION MEDICINE [...] + | [facility] | [address] | [place], [place] | | | [place] | [address] | [address] | | | TESTS | | | [...] Visit Diagnoses Not on filein this encounter Admitting Diagnoses + + | Diagnosis | [...] +---+---+ | | | +---+---+ + +-------+ +-------+---+---------+ | bupivacaine | Given | | 50 mL | | Abdomen | | (MARCAINE,SENSORCAINE) 0.25 % | | 8 14:03 | | | | | (2.5 mg/mL) injection | | PDT | | | | | INTRAPROCEDURE PRN, Starting Tue | | | | | | | 09/13/17 at 1403, Until Tue | | | | | | | 09/13/17 at 1441 | | | | | | + +-------+ +-------+---+---------+ + +---+ | | | + +---+ [...] + +---+ + +-------+ +--------+---+---------+ | heparin 5000 unit in NaCl 0.9 % | Given | | 200 mL | | Abdomen | | 500 mL (10 units/mL) flush | | 8 12:33 | | | | | solution INTRAPROCEDURE PRN, | | PDT | | | | | Starting 09/13/17 at 1233, | | | | | | | Until 09/13/17 at 1441 | | | | | | + [...] 2 HOURS | | | NEEDED, Starting Olamide 09/15/17 at | | | 0632, Until 09/17/17 at 1832, | | | severe pain | | + +---+ | | | + +---+ + +-------+ +---------+---+---------+ | insulin lispro (HUMALOG) | Given | | 2 Units | | Abdomen | | injection subcutaneous, FOUR | | 8 16:47 | | | | | TIMES DAILY, First dose on Tue | | PDT [...] + +---+---+ | | | +---+---+ + +-------+ +-------+---+---+ | omeprazole (PRILOSEC) oral | Given | | 20 mg | | | | suspension (compound) 20 mg 20 | | 8 08:36 | | | | | mg, oral, BEFORE BREAKFAST, First | | PDT | | | | | dose on [facility] 09/15/17 at 0715, | | | | [...] | | | | | NEEDED, Starting Olamide 09/15/17 at | | | | | [...] +---+---+ | | | +---+---+ + +-------+ +---------+---+---------+ | thrombin [id number] unit topical Kit | Given | | 20,000 | | Abdomen | | [place] INTRAPROCEDURE PRN, | | 8 13:03 | Units | | | | Starting 09/13/17 at 1303, | | PDT | | | | | Until 09/13/17 at 1441 | | | | | | + +-------+ +---------+---+---------+ +---+---+ | | | +---+---+ in this encounter
--- OUTSIDE RECORDS SUMMARY | ~2017-11-22 | XMS | Encounter Summary ---
Demographics + + + | Address | [address] | | | [place] [address] | + + + | Home Phone | | + + + | Preferred Language | Unknown | + + + | Marital Status | | + + + | Anglican Affiliation | Unknown | + + + | Race | Unknown | + + + | Ethnic Group | Unknown | + + + Author + + + | Author | [facility] | + + + | Organization | [facility] | + + + | Address | Unknown | + + + | Phone | Unavailable | + + + Support + + +---------+ + | Name | Relationship | Address | Phone | + + +---------+ + | Yuki Nguyen | ECON | Unknown | | + + +---------+ + Care Team Providers + +------+ + | Care Regrind Mill Operator Name | Role | Phone | + +------+ + PCP | Unavailable | + +------+ + Reason for Visit +--------+ + | Reason | Comments | +--------+ + | Triage | | +--------+ + Encounter Details +--------+ + + + + | Date | Type | Department | Care Team | Description | +--------+ + + + + | 10/14/ | Telephone | [facility] | Odette Dill RN | Triage | | 2018 | | Hematology and | | | | | | Oncology Infusions | | | | | | [address] | | | | | | [place] | | | | | | [address] | | | +--------+ + + + [...] MD | | | | | | [address] | | | | | | [place] | | | | | | [address] | | | | | | | | +--------+---------+ + + + as of this encounter Visit Diagnoses Not on filein this encounter"
--- OUTSIDE RECORDS SUMMARY | ~2017-11-22 | XMS | Encounter Summary ---
Demographics + + + | Address | [address] | | | [place] [address] | + + + | Home Phone | | + + + | Preferred Language | Unknown | + + + | Marital Status | | + + + | Orthodox Affiliation | LDS | + + + | Race | White | + + + | Ethnic Group | Not or | + + + Author + + + | Author | [facility] | + + + | Organization | [facility] | + + + | Address | Unknown | + + + | Phone | Unavailable | + + + Support + + + + + | Name | Relationship | Address | Phone | + + + + + | MILLY NGUYEN | ECON | [address] | | | | | [place], | | | | | [place] [address] | | + + + + + | Holly Burrell | ECON | Unknown | | + + + + + Care Team Providers + +------+ + | Care Mining Machinery Assembler Name | Role | Phone | + +------+ + | Jeremy Adrian MD | PCP | | + +------+ + Encounter Details +--------+ + + + + | Date | Type | Department | Care Team | Description | +--------+ + + + + | 09/02/ | Telephone | [facility]rology at [facility] | Cristy Rubin MD | | | 2018 | | [address] | [address] | | | | | Mail Code: CH10U | [place], [place] | | | | | [facility] | [address] | | | | | and [address] | [phone] | | | | | Floor [place], [place] | | | | | | [address] | | | | | | [phone] | | | +--------+ + + + [...] + + | 12/20/ | Diagnostic | Professor Of Forest Planning | Nils Woody, | | | 2017 | Visit | | [address] | | | | [address] | | | | | | [place] | | | | | | [address] | | | | | | | | +--------+ + + + + as of this encounter Visit Diagnoses Not on filein this encounter"
--- OUTSIDE RECORDS SUMMARY | ~2017-11-22 | XMS | Encounter Summary ---
Demographics + + + | Address | [address] | | | [place] [address] | + + + | Home Phone | | + + + | Preferred Language | Unknown | + + + | Marital Status | | + + + | Voodoo Affiliation | LDS | + + + | Race | White | + + + | Ethnic Group | Not or | + + + Author + + + | Author | [facility] | + + + | Organization | [facility] | + + + | Address | Unknown | + + + | Phone | Unavailable | + + + Support + + + + + | Name | Relationship | Address | Phone | + + + + + | MILLY NGUYEN | ECON | [address] | | | | | [place], | | | | | [place] [address] | | + + + + + | Holly Burrell | ECON | Unknown | | + + + + + Care Team Providers + +------+ + | Care Eeg Technologist Name | Role | Phone | + [...] | | | 2018 | Event | [facility] | Doroteo Barahona MD | | | | | Admitting Desk | [address] | | | | | Located on the [address] | [facility], | | | | | floor [address] [facility] [place] [address] | | | | | [facility] | [phone] | | | | | [place], [place] | | | | | | [address] | | | +--------+ + + + [...] + + | 12/20/ | Diagnostic | [employer] | Nils Woody, | | | 2018 | Visit | | [address] | | | | | [address] | | | | | | [place], [place] | | | | | | [address] | | | | | | | [...]
--- OUTSIDE RECORDS SUMMARY | ~2017-11-22 | XMS | Encounter Summary ---
Demographics + + + | Address | [address] | | | [place] [address] | + + + | Home Phone | | + + + | Preferred Language | Unknown | + + + | Marital Status | | + + + | Yarsanism Affiliation | Unknown | + + + | Race | Unknown | + + + | Ethnic Group | Unknown | + + + Author + + + | Author | [facility] | + + + | Organization | [facility] | + + + | Address | Unknown | + + + | Phone | Unavailable | + + + Support + + +---------+ + | Name | Relationship | Address | Phone | + + +---------+ + | Yuki Nguyen | ECON | Unknown | | + + +---------+ + Care Team Providers + +------+ + | Care Marking Stitcher Name | Role | Phone | + [...] | +--------+ + + + + | 10/04/ | Documentati | [facility] | Nanda Vaughan | Oncology Nurse | | 2018 | on Only | Hematology and | C, RN | Navigation | | | | Oncology [address] | | | | [address] | | | | | | [place] | | | | | | [address] | | | | | | [phone] | | | +--------+ + + + [...] encounter Progress Notes Nanda Vaughan RN - 10/04/2017 2:40 PM PDTFormatting of this note may be different fr om the original. ONN met with patient and today in Dr. Quiroz's office for an initial visit. Distress Assessment Patient Responses: Distress Screen 10/04/2017 Patient agreed to complete the screen? Yes OK to leave message? Yes Completed by? Patient Contact phone number [phone] Distress rating 0-10 1 Practical Problems None Emotional Problems Anger Request for Resources None Family Problems None Fatigue rating 0-10 3 Physical problems Eating concerns;Weight loss Interventions: Patient and live in [place], [place]. Patient still works at [employer] and [facility] [employer] through his employment. He stated that "medicare is too expensive." He is currently on short-term disability leave and is suppose to return to work on Dec.26. ONN explained th at we will reevaluate at that time and complete any necessary paperwork at that time. The p atient was given written information on Pazopinib and we will check with pharmacy if this is the best option for the patient. The patient does have difficulty with swallowing, so he w ill need a medication that he will be able to take. Patient was given written information o n safe handling and disposing of chemotherapy at home and it was briefly reviewed. ONN will follow up with patient about medication once final treatment decision is made. Patient jacob balized understanding of this. Patient was given a copy of the Chemotherapy and you, and th e Eating Hints booklets along with other information on nutrition. Patient was also provide d with samples of Glucerna to help him supplement his meals. ONN will also send a message t o the table runner to reach out to the patient to assist with nutritional needs. Patient and w sadiq denied any further questions or concerns at this time. ONN will follow up with patient about prescriptions once information is available. ONN contact information was provided, an d patient was encouraged to call with any questions, concerns or issues. JUDE Boland, RN, [facility] Oncology Nurse Navigator in this encounter Plan of Treatment +--------+---------+ + + + | Date | Type | Specialty | Care Team | Description | +--------+---------+ + + + | 12/21/ | Office | Hematology and | Gabriella, | | | 2017 | Visit | Oncology | Stephanie Dubon MD | | | | | | [address] | | | | | | [place] | | | | | | [address] | | | | | | | | +--------+---------+ + + + as of this encounter Visit Diagnoses Not on filein this encounter
--- OUTSIDE RECORDS SUMMARY | ~2017-11-22 | XMS | Encounter Summary ---
Demographics + + + | Address | [address] | | | [place] [address] | + + + | Home Phone | | + + + | Preferred Language | Unknown | + + + | Marital Status | | + + + | Cheondoism Affiliation | Unknown | + + + | Race | Unknown | + + + | Ethnic Group | Unknown | + + + Author + + + | Author | [facility] | + + + | Organization | [facility] | + + + | Address | Unknown | + + + | Phone | Unavailable | + + + Support + + +---------+ + | Name | Relationship | Address | Phone | + + +---------+ + | Yuki Nguyen | ECON | Unknown | | + + +---------+ + Care Team Providers + +------+ + | Care Personal Trainer Name | Role | Phone | + [...] + + | 11/17/ | Documentati | [facility] | Nanda Vaughan | Oncology Nurse | | 2018 | on Only | Hematology and | C, RN | Navigation | | | | Oncology [address] | | | | | | [address] | | | | | | [place] | | | | | | [address] | | | | | | [phone] | | | +--------+ + + + [...] [place] | | | | | | [address] | | | | | | | | +--------+---------+ + + + as of this encounter Visit Diagnoses Not on filein this encounter"
--- OUTSIDE RECORDS SUMMARY | ~2017-11-22 | XMS | Encounter Summary ---
Demographics + + + | Address | [address] | | | [place] [address] | + + + | Home Phone | | + + + | Preferred Language | Unknown | + + + | Marital Status | | + + + | Oriental Orthodox Affiliation | LDS | + + + | Race | White | + + + | Ethnic Group | Not or | + + + Author + + + | Author | [facility] | + + + | Organization | [facility] | + + + | Address | Unknown | + + + | Phone | Unavailable | + + + Support + + + + + | Name | Relationship | Address | Phone | + + + + + | MILLY NGUYEN | ECON | [address] | | | | | [place], | | | | | [place] [address] | | + + + + + | Holly Burrell | ECON | Unknown | | + + + + + Care Team Providers + +------+ + | Care Rn Procedure Name | Role | Phone | + [...] Henao | | | | | | ([facility]) | [address] | | | | | | Procedures | [place], [place] | | | | | | CONSULT TO | [address] | | | | | | HEMATOLOGY / | Phone: | | | | | | ONCOLOGY | [phone] | | | | | | PRACTICE | Fax: | | | | | | | [phone] | | + +--------+ + + + + Encounter Details +--------+ + + + + | Date | Type | Department | Care Team | Description | +--------+ + + + + | 09/19/ | Telephone | Urology at [facility] | Alison Garcia | | | 2018 | | [address] | [address] | | | | | Mail Code: CH10U | [address] | | | | | [facility] | [place], [place] | | | | | and [place], | [address] | | | | | Floor [place], [place] | [phone] | | | | | [address] | | | | | | [phone] | | | +--------+ + + + [...] + + | 12/20/ | Diagnostic | Machine Coremaker | Nils Woody, | | | 2017 | Visit | | [facility] [address] | | | | | | [address] | | | | | | [place], [place] | | | | | | [address] | | | | | | | | +--------+ + + + + as of this encounter Visit Diagnoses + + | Diagnosis | + + | Renal cell carcinoma, unspecified laterality (HCC) - Primary | + +"
--- OUTSIDE RECORDS SUMMARY | ~2017-11-22 | XMS | Encounter Summary ---
Demographics + + + | Address | [address] | | | [place] [address] | + + + | Home Phone | | + + + | Preferred Language | Unknown | + + + | Marital Status | | + + + | Sikh Affiliation | Unknown | + + + | Race | Unknown | + + + | Ethnic Group | Unknown | + + + Author + + + | Author | [facility] | + + + | Organization | [facility] | + + + | Address | Unknown | + + + | Phone | Unavailable | + + + Support + + +---------+ + | Name | Relationship | Address | Phone | + + +---------+ + | Yuki Nguyen | ECON | Unknown | | + + +---------+ + Care Team Providers + +------+ + | Care Pot Lining Supervisor Name | Role | Phone | + +------+ + PCP | Unavailable | + +------+ + Reason for Visit +--------+ + | Reason | Comments | +--------+ + | Other | MARINA WU OSHU | +--------+ + Encounter Details +--------+ + + + + | Date | Type | Department | Care Team | Description | +--------+ + + + + | 09/01/ | Documentati | [facility] | Gabriella, | Other (MARINA WU, | | 2018 | on Only | Hematology and | Stephanie Dubon MD | OSIEL) | | | | Oncology [address] | | | | | [address] | [place] | | | | | [place] | [address] | | | | | [address] | | | | | | [phone] | | | +--------+ + + + [...] [place] | | | | | | [address] | | | | | | | | +--------+---------+ + + + as of this encounter Visit Diagnoses Not on filein this encounter"
--- OUTSIDE RECORDS SUMMARY | ~2017-11-22 | XMS | Encounter Summary ---
Demographics + + + | Address | [address] | | | [place] [address] | + + + | Home Phone | | + + + | Preferred Language | Unknown | + + + | Marital Status | | + + + | Uatsdin Affiliation | LDS | + + + | Race | White | + + + | Ethnic Group | Not or | + + + Author + + + | Author | [facility] | + + + | Organization | [facility] | + + + | Address | Unknown | + + + | Phone | Unavailable | + + + Support + + + + + | Name | Relationship | Address | Phone | + + + + + | MILLY NGUYEN | ECON | [address] | | | | | [place], | | | | | [place] [address] | | + + + + + | Holly Burrell | ECON | Unknown | | + + + + + Care Team Providers + +------+ + | Care Paper Tube Grader Name | Role | Phone | + +------+ + | Jeremy Adrian MD | PCP | | + +------+ + Reason for Visit +--------+ + | Reason | Comments | +--------+ + | FMLA | | +--------+ + Encounter Details +--------+ + + + + | Date | Type | Department | Care Team | Description | +--------+ + + + + | 09/14/ | Telephone | Urology at [facility] | Cristy Rubin MD | FMLA | | 2018 | | [address] | [address] | | | | | Mail Code: CH10U | [place], [place] | | | | | [facility] | [address] | | | | | and | [phone] | | | | | Floor [place], [place] | | | | | | [address] | | | | | | [phone] | | | +--------+ + + + [...] + + | 12/20/ | Diagnostic | General Office Dispatcher | Nils Woody, | | | 2017 | Visit | | [address] | | | | | [address] | | | | | | [place], [place] | | | | | | [address] | | | | | | | | +--------+ + + + + as of this encounter Visit Diagnoses Not on filein this encounter"
--- OUTSIDE RECORDS SUMMARY | ~2017-11-22 | XMS | Encounter Summary ---
Demographics + + + | Address | [address] | | | [place] [address] | + + + | Home Phone | | + + + | Preferred Language | Unknown | + + + | Marital Status | | + + + | Alevism Affiliation | Unknown | + + + | Race | Unknown | + + + | Ethnic Group | Unknown | + + + Author + + + | Author | [facility] | + + + | Organization | [facility] | + + + | Address | Unknown | + + + | Phone | Unavailable | + + + Support + + +---------+ + | Name | Relationship | Address | Phone | + + +---------+ + | Yuki Nguyen | ECON | Unknown | | + + +---------+ + Care Team Providers + +------+ + | Care Hub Lead Name | Role | Phone | + [...] + + | 10/04/ | Documentati | [facility] | Nanda Vaughan | Oncology Nurse | | 2018 | on Only | Hematology and | C, RN | Navigation | | | | Oncology [address] | | | | | | [address] | | | | | | [place] | | | | | | [address] | | | | | | [phone] | | | +--------+ + + + [...] Yes Completed by? Patient Contact phone number [phone] Distress rating 0-10 1 Practical Problems None Emotional Problems Anger Request for Resources None Family Problems None Fatigue rating 0-10 3 Physical problems Eating concerns;Weight loss Interventions: Patient and live in [place], [place]. Patient still works at [employer] and is currently in [employer] through his employment. He stated that "medicare [...] also send a message t o the copy writer to reach out to the patient to [...] MD | | | | | | [address] | | | | | | [place] | | | | | | [address] | | | | | | | | +--------+---------+ + + + as of this encounter Visit Diagnoses Not on filein this encounter
--- OUTSIDE RECORDS SUMMARY | ~2017-11-22 | XMS | Encounter Summary ---
Demographics + + + | Address | [address] | | | [place] [address] | + + + | Home Phone | | + + + | Preferred Language | Unknown | + + + | Marital Status | | + + + | Yazidi Affiliation | Unknown | + + + | Race | Unknown | + + + | Ethnic Group | Unknown | + + + Author + + + | Author | [facility] | + + + | Organization | [facility] | + + + | Address | Unknown | + + + | Phone | Unavailable | + + + Support + + +---------+ + | Name | Relationship | Address | Phone | + + +---------+ + | Yuki Nguyen | ECON | Unknown | | + + +---------+ + Care Team Providers + +------+ + | Care Tire Groover Name | Role | Phone | + [...] + + + | Authorized | | | Diagnoses | | [facility] | | | | | Cancer of | [facility] | | | | | kidney, | Rangaswamy | [address] | | | | | right (HCC) | [address] | [address] | | | | | Procedures | [address] | [place] | | | | | CT head [address] | [address]VE | [address] | | | | | WO IV | [place], | Phone: | | | | | contrast | [place] [address] | [phone] | | | | | | Phone: | Fax: | | | | | | [phone] | [phone] | | | | | | Fax: | | | | | | | [phone] | | + +--------+ + + + + Encounter Details +--------+ + + + + | Date | Type | Department | Care Team | Description | +--------+ + + + + | 10/13/ | Orders Only | [facility] | [place], | Cancer of kidney, | | 2018 | | Hematology and | Stephanie Dubon MD | right (HCC) (Primary | | | | Oncology [address] | Dx) | | | | [address] | [place] | | | | | [place] | [address] | | | | | [address] | | | | | | [phone] | | | +--------+ + + + [...] [place] | | | | | | [address] | | | | | | | | +--------+---------+ + + + + +--------+ + + | Name | Priori | Associated Diagnoses | Order Schedule | | | ty | | | + +--------+ + + | CT head W WO IV contrast | [facility] | Cancer of kidney, | Ordered: 10/13/2017 | | | | right (HCC) | | + +--------+ + + as of this encounter Visit Diagnoses + + | Diagnosis | + + | Cancer of kidney, right (HCC) - Primary | + +"
--- OUTSIDE RECORDS SUMMARY | ~2017-11-22 | XMS | Encounter Summary ---
Demographics + + + | Address | [address] | | | [place] [address] | + + + | Home Phone [...] + + + | Author | [facility] | + + + | Organization | [facility] | + + + | Address | Unknown | + + + | Phone | Unavailable | + + + Support + + + + + | Name | Relationship | Address | Phone | + + + + + | MILLY NGUYEN | ECON | [address] | | | | | [place], | | | | | [place] [address] | | + + + + + | Holly Burrell | ECON | Unknown | | + + + + + Care Team Providers + +------+ + | Care Wallpaperer Name | Role | Phone | + +------+ + | Jeremy Adrian MD | PCP | | + +------+ + Encounter Details +--------+ + + + + | Date | Type | Department | Care Team | Description | +--------+ + + + + | 08/31/ | Hospital | Radiology/Imaging | Alison Garcia | | | 2018 | Encounter | Lab at [facility] [address] | [address] | | | | | [address] | [address] | | | | | Mailcode: CH3G | [place], [place] | | | | | [facility] | [address] | | | | | and [address], [facility] | [phone] | | | | | Floor [place], [place] | | | | | | [address] | | | | | | [phone] | | | +--------+ + + + [...] + + | 12/20/ | Diagnostic | Corporate Financial Analyst | Nils Woody, | | | 2018 | Visit | | [address] | | | | | | [address] | | | | | | [place], [place] | | | | | | [address] | | | | | | | [...] + + + in this encounter Results KIDNEY & BLADDER (08/31/2017 3:43 PM) + [...] Note | + + | Service Account, [facility] Res In Interface - 08/31/2017 5:20 PM [...] + | Diagnosis | + + | Bladder mass | + + | Other specified disorders of bladder | + + | Renal mass | + + | Unspecified disorder of kidney and ureter | + +"
--- OUTSIDE RECORDS SUMMARY | ~2017-11-22 | XMS | Encounter Summary ---
Demographics + + + | Address | [address] | | | [place] [address] | + + + | Home Phone | | + + + | Preferred Language | Unknown | + + + | Marital Status | | + + + | Holiness Affiliation | Unknown | + + + | Race | Unknown | + + + | Ethnic Group | Unknown | + + + Author + + + | Author | [facility] | + + + | Organization | [facility] | + + + | Address | Unknown | + + + | Phone | Unavailable | + + + Support + + +---------+ + | Name | Relationship | Address | Phone | + + +---------+ + | Yuki Nguyen | ECON | Unknown | | + + +---------+ + Care Team Providers + +------+ + | Care Oil Field Operator Name | Role | Phone | [...] [place] | | | | | | [address] | | | +--------+ + + + [...] MD | | | | | | [address] | | | | | | [place] | | | | | | [address] | | | | | | | | +--------+---------+ + + + as of this encounter Visit Diagnoses Not on filein this encounter"
--- OUTSIDE RECORDS SUMMARY | ~2017-11-22 | XMS | Encounter Summary ---
Demographics + + + | Address | [address] | | | [place] [address] | + + + | Home Phone | | + + + | Preferred Language | Unknown | + + + | Marital Status | | + + + | Mormonism Affiliation | LDS | + + + | Race | White | + + + | Ethnic Group | Not or | + + + Author + + + | Author | [facility] | + + + | Organization | [facility] | + + + | Address | Unknown | + + + | Phone | Unavailable | + + + Support + + + + + | Name | Relationship | Address | Phone | + + + + + | MILLY NGUYEN | ECON | [address] | | | | | [place], | | | | | [place] [address] | | + + + + + | Holly Burrell | ECON | Unknown | | + + + + + Care Team Providers + +------+ + | Care Computational Geneticist Name | Role | Phone | + [...] | 10/13/ | Telephone | Urology at [facility] | Alison Garcia | Lab Results | | 2017 | | [address] | [address] | | | | | Mail Code: CH10U | [address] | | | | | [facility] | [place], [place] | | | | | and | [address] | | | | | Floor [place], [place] | [phone] | | | | | [address] | | | | | | [phone] | | | +--------+ + + + [...] + + | 12/20/ | Diagnostic | Carpet Cleaner | Nils Woody, | | | 2018 | Visit | | Keyla [facility] [address] | | | | | | [address] | | | | | | [place], [place] | | | | | | [address] | | | | | | | [...] | 65 - 110 mg/dL | NON NESU LAB | | (LAB) | | | [...]
--- OUTSIDE RECORDS SUMMARY | ~2017-11-22 | XMS | Encounter Summary ---
Demographics + + + | Address | [address] | | | [place] [address] | + + + | Home Phone | | + + + | Preferred Language | Unknown | + + + | Marital Status | | + + + | Adventism Affiliation | Unknown | + + + | Race | Unknown | + + + | Ethnic Group | Unknown | + + + Author + + + | Author | [facility] | + + + | Organization | [facility] | + + + | Address | Unknown | + + + | Phone | Unavailable | + + + Support + + +---------+ + | Name | Relationship | Address | Phone | + + +---------+ + | Yuki Nguyen | ECON | Unknown | | + + +---------+ + Care Team Providers + +------+ + | Care Track Superintendent Name | Role | Phone | + +------+ + PCP | Unavailable | + +------+ + Reason for Visit +--------+ + | Reason | Comments | +--------+ + | Other | GABRIELLA HURD/ADITI FARAH | +--------+ + Encounter Details +--------+ + + + + | Date | Type | Department | Care Team | Description | +--------+ + + + + | 09/23/ | Documentati | [facility] | Gabriella, | Other (CONSULT, | | 2018 | on Only | Hematology and | Stephanie Dubon MD | GABRIELLA/REFERRAL | | | | Oncology [address] | , ADIT[place]) | | | | [address] | [place] | | | | | [place] | [address] | | | | | [address] | | | | | | [phone] | | | +--------+ + + + [...] [place] | | | | | | [address] | | | | | | | | +--------+---------+ + + + as of this encounter Visit Diagnoses Not on filein this encounter"
--- OUTSIDE RECORDS SUMMARY | ~2017-11-22 | XMS | Encounter Summary ---
Demographics + + + | Address | [address] | | | [place] [address] | + + + | Home Phone | | + + + | Preferred Language | Unknown | + + + | Marital Status | | + + + | Hinduism Affiliation | LDS | + + + [...] + | MILLY NGUYEN | ECON | [address] | | | | | [place], | | | | | [place] [address] | | + + + + + | Holly Burrell | ECON | Unknown | | + + + + + Care Team Providers + +------+ + | Care Client Service Supervisor Name | Role | Phone | [...] | | | | | unspecified | [address] | [facility] [address] | | | | | type | Jimmy Bowling | [address] | | | | | Procedures | [address] | Mail Code: | | | | | CONSULT TO | [place], [place] | [address] | | | | | ENT GENERAL | [address] | for Health | | | | | | Phone: | and Healing, | | | | | | [phone] | 15th Floor | | | | | | Fax: | [place], [place] | | | | | | [phone] | [address] | | | | | | | Phone: | | | | | | | [phone] | | | | | | | Fax: | | | | | | | [phone] | + +--------+ + + + + [...] Therapy | Dysphagia, | Mario R, | [facility] [address] | | | | | unspecified | [address] | Salvatore Toney | | | | | type | Jimmy Bowling | Mail Code: | | | | | Procedures | [address] | [facility] | | | | | SPEECH | [place], [place] | for Health | | | | | THERAPY | [address] | and Healing, | | | | | REFERRAL | Phone: | 15th Floor | | | | | | [phone] | [place], [place] | | | | | | Fax: | [address] | | | | | | [phone] | Phone: | | | | | | | [phone] | | | | | | | Fax: | | | | | | | [phone] | + +--------+ + + + + [...] + | 09/13/ | Hospital | [facility] [address] | Cristy Rubin MD | | | 2018 - | Encounter | [address] | | | | | | [id number] [facility] | | | | 09/17/ | | [facility], | | | | 2018 | | [place] [address] | | | | | | [phone] | | | +--------+ + + + [...] may be different fr om the original. [facility] Inpatient Discharge Summary Mario Guardado MD Attending [...] can cause constipation, so you may take mtsq-qis-nevchti stool softeners (Senok ot-S, Miralax, Colace) following [...] Physician A ssistant, Nurse or Surgery Resident junior automation engineer if you have any of the followin. [...] 10/06/2017 9:30 AM Alison Garcia Urology at [facility] [phone] Urology 12/20/2017 8:30 AM Keyla Adam; AUDIO CASTELLON 4 Otolaryngology Audiology Services at [facility] [phone] [facility] Our schedulers will contact you to make an appointment. Your appointment will be on the 10t h floor of the [facility]. If you do not hear from our schedulers in [facility] call the clinic at . [...] 10/06/2017 9:30 AM Alison Garcia Urology at [facility] [phone] Urology 12/20/2017 8:30 AM Keyla Adam; AUDIO CASTELLON 4 Otolaryngology Audiology Services at [facility] [phone] Otolaryngolo ----- Condition On Discharge: Good Vital [...] questions. Mario Guardado MD Urology PGY-1 Pg [phone] [facility] [address] [address] Associated attestation - Cristy Rubin MD - 09/17/2017 10:05 AM PDTI agree with discharge summary as written by Dr. Guardado. Pt will follow up in 3 weeks. Alex Rubin MD Consulting Business Developer Department of Urology [facility] in this encounter Discharge Instructions Xochilt Suarez [...] Intake/Output Summary (Last 24 hours) at 09/17/17 7757 Last data filed at 09/17/17 0429 Gross [...] 2.2 H&H 7.9/26.1 (from 7.3/24.4 yesterday) Imaging: [facility] ABDOMINAL DUPLEX LTD ARTERY VEIN [...] Please page the Vascular Surgery Team pager #[phone] with questions. Eder Gann M.D., M.P.H. Neurological Surgery Resident PGY-1 Pager: [phone] This assessment and plan was formulated both independently and in conjunction with the [facility] ular Surgery Team as well as the [...] primary team Doroteo Lawton MD Vascular Surgery Actuarial Internship Please page the Vascular Surgery Team pager# [phone] for questions Current Facility-Administered Medications: acetaminophen (TYLENOL) [...] QPM, Mandy Baeza MD, 40 mg at 09/15/17 214 4 Associated attestation - Christian Mckeon MD - 09/17/2017 8:43 AM PDTI saw and evaluated t he patient. I agree with the findings and the plan of care as documented in the resident s note. Christian Mckeon M.D. [facility] Vascular Surgery [address] [place] [address], [address] [address] Email: [email or web address] Mario Guardado MD - 09/16/2017 8:52 AM PDTFormatting of this note may be different fr om the original. Urology Progress Note Hospital Day: 3 Author: MANDY BAEZA MD Attending Physician: Cristy Rubin MD Patient: ELICEO NGUYEN [id number] 24H events/Subjective: ELVIS overnight. Pain is well [...] primary team Doroteo Lawton MD Vascular Surgery Actuarial Internship Please page the Vascular Surgery Team pager# [phone] for questions Current Facility-Administered Medications: acetaminophen (TYLENOL) [...] resident s note. Christian Mckeon M.D. [facility] Vascular Surgery [address] [place] [address], [address] [address] Email: [email or web address] Mandy Baeza MD - 09/15/2017 8:50 AM PDTFormatting of this note may be different from lashay daigle original. Urology Progress Note Hospital Day: 2 Author: MANDY BAEZA MD Attending Physician: Cristy Rubin MD Patient: ELICEO NGUYEN [id number] 24H events/Subjective: ELVIS overnight. Pain is well [...] 0659 09/15/17 0700 - 09/16/17 0659 Shift [id number] [id number] 24 Hour Total 2045-2309 6267-6100 9188-4008 24 Hour Total I N T A [...] mg, intravenous, Q2H PRN HYDROmorphone 0.5 mg/mL HEART COORDINATOR (ADULT STANDARD DOSE) in 0.9 % NaCl, , intravenous, CONTINUOUS HYDROmorphone 0.5 mg/mL rescue bolus from HEART COORDINATOR (ADULT STANDARD DOSE) 0.2 mg, 0.2 mg, [...] Rubin MD. Mandy Baeza MD Urology Pager [phone] Nata Roland MD - 09/14/2017 3:04 PM PDTFormatting of this note may be different fro m the original. Cardiovascular Intensive Care Unit Team Progress Note CVICU D2 Assigned #[id number] Admission dx: N28.89 (ICD-10-CM) - 593.9 (ICD-9-CM) - RENAL MASS Days in ICU 1 Days in Hospital Abbreviated HPI / Daily Assessment Mr. 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 24 Hour events -arterial line d/c -softer pressures overnight, but did not receive IVF bolus -pain well controlled with HEART COORDINATOR -CLD Code Status Code Status Full Code Active Diagnosis with Assessment & Plan Priority Class POA Head/Neck Cochlear implant in place Yes Current Assessment & Plan Working well. Able to hear well except over the phone. 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 -Hold in post-operative period Digestive Gastroesophageal reflux disease Yes Current Assessment & Plan On pantoprazole as outpatient. -Continue omeprazole (formulary) Dysphagia Unknown Current Assessment & Plan Has had issues with swallowing and dysphagia for quite some time. Crushes all meds and ta kes them with applesauce. TUNNEL KILN FIRER consult and recommend barium swallow. -CLD -Barium swallow today -TUNNEL KILN FIRER following Hematologic Acute blood loss anemia Unknown [...] Vena cava graft done by vascular. Has HEART COORDINATOR. 6.3 L crystalloid given during the case-no blood products given (1200 mL EBL). Did well overnight HD and with pain control. -Continue motta per urology -HM HEART COORDINATOR -CLD until TUNNEL KILN FIRER eval/uro approval -Closely monitor hemodynamics -[facility] status Code Status Updated to: FULL Physical [...] Cristy Rubin MD Admitting Provider Urological Surgery [id number] The Advanced Care Note for this patient can be found under the notes tab in chart review. Quality section Motta necessity reviewed: Acute urinary retention or obstruction FAST HUG Feeding: clears Analgesia: HEART COORDINATOR Sedation: n/a Thromboprophylaxis: Heparin SQ Head of Bed: Speech and swallow evaluation Ulcer Prophylaxis: Omeprazole Glycemic Control: insulin sliding Created by Nata Roland MD Author:[place] [id number] Lema MD - 09/14/2017 10:11 AM PDTFormatting of this note m ay be different from the original. Cardiovascular Intensive Care Unit Attending Progress Note CVICU D2 Assigned #[id number] Hospital admission dx: N28.89 (ICD-10-CM) - 593.9 [...] if Hct drops - pain control w/ HEART COORDINATOR - bronchiole hygiene - mobilize - speech/swallow eval, if advance diet stop IVF Dispo: stable for [facility] Hospital Problems Priority POA Head/Neck Cochlear implant [...] Cristy Rubin MD Admitting Provider Urological Surgery 05130 Code Status Code Status Full Code The [...] exceptions/additions as noted. Date of Service: 09/14/2017 [facility] DEPARTMENT: ANE ICU CARDIAC Place of Service:- Inpatient CSN: [id number] Suggested Modifier: GC - Resident Involved Suggested CPT: TO FUNERAL HOME DIRECTOR Author:Moustapha Lema MD [place] [address] [place] [address]UekilmdMario Guardado MD - 09/14/2017 8:33 AM PDTUrology Progress Not e Hospital Day: 1 Author: Mario Guardado MD Attending Physician: Cristy Rubin MD Patient: ELICEO NGUYEN [id number] 24H events/Subjective: No acute events overnight Pt [...] suspected dysphagia vs. Pharyngeal diverticulum - Continue HEART COORDINATOR pain control - Heparin prophylaxis - Maintain motta catheter - Oxybutynin for bladder discomfort due to motta #Caval graft - Aspirin 81mg daily The attending of record for this patient is Cristy Rubin MD. Mario Guardado MD Department of Urology [facility] Madiha Ramirez MD - 09/14/2017 6:08 AM [...] and plan. Madiha Ramirez MD General Surgery [id number] Johnson PA - 09/13/2017 10:51 PM PDTFormatting of this note may be different from the original. Cardiovascular Intensive Care Unit Clinical Update Note Team: D2 Team Pager: [phone] Attending: Dr. Rios Pt Name: Eliceo Nguyen ID: Abbreviated HPI Abbreviated HPI / Daily Assessment Mr. 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 Update: Pain well controlled with HM HEART COORDINATOR. A-line no longer correlating with cuff BP [...] post nephrectomy Unknown Plan: - continue HM HEART COORDINATOR - d/c a-line - SSI - cbc [...] e. Date of Service: 09/13/2017 MCKAYLA VIEYRA [facility] DEPARTMENT: ANE ICU CARDIAC Place of Service:- Inpatient CSN: [id number] Suggested Modifier: None Suggested CPT: TO FUNERAL HOME DIRECTOR MCKAYLA VIEYRA in this encounter Plan of Treatment +--------+ + + + + | Date | Type | Specialty | Care Team | Description | +--------+ + + + + | 12/20/ | Diagnostic | Culinary Art Teacher | Nils Woody, | | | 2018 | Visit | | Keyla [facility] [address] | | | | | | [facility] | | | | | | Rd [place], [place] | | | | | | [phone] | | | | | | | [...] - [place] | [address] | [place], [place] | | | [facility] | [address] | [address] | | | TESTS | | | | + + + + + CBC (HEMOGRAM) ONLY (09/17/2017 4:50 AM) + + + + + | Component | Value | Ref Range | Performed At | + + + + + | WHITE CELL COUNT | 8.56 | 3.50 - 10.80 K/cu mm | [facility] | | | | | SERVICES, [...] | + + + + + | [facility] | [address] | [place] [address] | | | SERVICES, XENIA | PARK [...] | + + + + + | [facility] | [address] | [place] [address] | | | SERVICES, CORE | [address] | | | + + + + + MAGNESIUM, PLASMA (09/17/2017 4:50 AM) + +-------+ + + | Component | Value | Ref Range | Performed At | + +-------+ + + | MAGNESIUM,PLASMA | 2.0 | 1.6 - 2.6 mg/dL | [facility] | | | | | SERVICES, CORE | + +-------+ + + + + | Specimen | + + | Blood - Blood | + + + + + | Narrative | Performed At | + + + | Reference range change effective 11/09/16. | [facility] | | | LABORAT[facility] | | | SERVICES, CORE | + + + + + + + + | Performing | Address | City/State/Zipcode | Phone Number | | Organization | | | | + + + + + | [facility] | [address] | [place] [address] | | | SERVICES, XENIA | PARK [...] >60 mL/min | [facility] | | [place] | | | SERVICES, CORE | + +---------+ + + | EGFR NON | >60 | >60 mL/min | [facility] | | -HAITIAN | | | SERVICES, CORE | + [...] CMNT | No Hemo | | [facility] | | | | | SERVICES, CORE | + +---------+ + + + + | Specimen | + + | Blood - Blood | + + + + + | Narrative | Performed At | + + + | GFR is estimated using the MDRD equation recommended by the | [facility] | | National Kidney Disease Education Program. [...] | + + + + + | [facility] | [address] | [place] [address] | | | SERVICES, CORE | [address] [...] [place] | [address] | [place], [place] | | | [facility] CARE | [address] | [address] | | | TESTS | | | [...] + + + | [facility] | [address] | [place], [place] | | | TORSTEN TSAI OF CARE | [address] | [address] | | | TESTS | | | [...] - [facility] | [address] | [place], [place] | | | [facility] [place] [facility] | [address] | [address] | | | TESTS | | | [...] [place] | [address] | [place], [place] | | | [facility] CARE | [address] | [address] | | | TESTS | | | | + + + + + CBC (HEMOGRAM) ONLY (09/16/2017 4:16 AM) + + + + + | Component | Value | Ref Range | Performed At | + + + + + | WHITE CELL COUNT | 9.09 | 3.50 - 10.80 K/cu mm | [facility] | | | | | SERVICES, [...] | 9.7 - 12.3 fL | [facility] | | | | | SERVICES, CORE | + + + + + | NRBC% | 0.0 | 0.0 - 0.3 % | [facility] | | | | | SERVICES, CORE | + + + + + | NRBC# | 0.00 | 0.00 - 0.02 K/cu mm | [facility] | | | | | SERVICES, [...] [facility] | [address] | [place] [address] | | | XENIA LUNDBERG | [address] | | | + + + + + PHOSPHORUS, PLASMA (09/16/2017 4:16 AM) + +---------+ + + | Component | Value | Ref Range | Performed At | + +---------+ + + | PHOSPHORUS, PLASMA | 2.1 (L) | 2.4 - 4.7 mg/dL | [facility] | | (LAB) | | | SERVICES, CORE | + +---------+ + + + + | Specimen | + + | Blood - Blood | + + + + + + + | Performing | Address | City/State/Zipcode | Phone Number | | Organization | | | | + + + + + | [facility] | [address] | [place] [address] | | | SERVICES, CORE | [address] | | | + + + + + MAGNESIUM, PLASMA (09/16/2017 4:16 AM) + +-------+ + + | Component | Value | Ref Range | Performed At | + +-------+ + + | MAGNESIUM,PLASMA | 1.9 | 1.6 - 2.6 mg/dL | [facility] | | | | | XENIA [...] [facility] | [address] | [place] [address] | | | XENIA LUNDBERG | [address] [...] >60 mL/min | [facility] | | HAITIAN | | | SERVICES, CORE | + +---------+ + + | EGFR NON | >60 | >60 mL/min | [facility] | | -HAITIAN | | | SERVICES, CORE | + [...] + + + + + | [facility] | [address] | [place] [address] | | | SERVICES, CORE | [address] [...] BUTCHER | [address] | [place], [place] | | | [facility]ARE | [address] | [address] | | | TESTS | | | [...] BUT[facility] | [address] | [place], [place] | | | [facility]ARE | [address] | [address] | | | TESTS | | | [...] [place] | [address] | [place], [place] | | | [facility]ARE | [address] | [address] | | | TESTS | | | [...] BUTCHER | [address] | [place], [place] | | | [facility] CARE | [address] | [address] | | | TESTS | | | | + + + + + CBC (HEMOGRAM) ONLY (09/15/2017 5:25 AM) + + + + + | Component | Value | Ref Range | Performed At | + + + + + | WHITE CELL COUNT | 11.47 (H) | 3.50 - 10.80 K/cu mm | [facility] | | | | | SERVICES, [...] 0.0 | 0.0 - 0.3 % | [facility] | | | | | SERVICES, [...] + + + + + | [facility] | [address] | [place] [address] | | | SERVICES, CORE | [address] | | | + + + + + PHOSPHORUS, PLASMA (09/15/2017 5:25 AM) + +---------+ + + | Component | Value | Ref Range | Performed At | + +---------+ + + | PHOSPHORUS, PLASMA | 2.2 (L) | 2.4 - 4.7 mg/dL | [facility] | | (LAB) | | | SERVICES, CORE | + +---------+ + + + + | Specimen | + + | Blood - Blood | + + + + + + + | Performing | Address | City/State/Zipcode | Phone Number | | Organization | | | | + + + + + | [facility] | [address] | [place] [address] | | | SERVICES, XENIA | PARK [...] [facility] | [address] | [place] [address] | | | X[place]IA LUNDBERG | [address] [...] >60 mL/min | [facility] | | [place]IAN | | | SERVICES, CORE | + +---------+ + + | EGFR NON | >60 | >60 mL/min | [facility] | | -[place]IAN | | | SERVICES, CORE | + [...] 24 | 21 - 32 mmol/L | [facility] | | (LAB) | | | SERVICES, CORE | + +---------+ + + | CALCIUM, PLASMA | 8.2 (L) | 8.6 - 10.2 mg/dL | [facility] | | (LAB) | | | SERVICES, CORE | + +---------+ + + | ANION GAP | 9 | 4 - 11 mmol/L | [facility] | | | | | SERVICES, CORE | + +---------+ + + | POTASSIUM CMNT | No Hemo | | [facility] | | | | | SERVICES, [...] | + + + + + | [facility] | [address] | [place] [address] | | | SERVICES, CORE | [address] [...] BUTCHER | [address] | [place], [place] | | | [facility] [place] | [address] | [address] | | | TESTS | | | [...] BUTCHER | [address] | [place], [place] | | | TORSTEN TSAI OF CARE | [address] | [address] | | | TESTS | | | | + + + + + MODIFIED BARIUM SWALLOWING (09/14/2017 3:00 PM) + + + | Narrative | Performed At | + + + | EXAM: Modified Barium Swallow HISTORY: TUNNEL KILN FIRER | [facility] | | recommended. Patient with [...] Note | + + | Service Account, [employer] In Interface - 09/15/2017 10:05 AM PDT EXAM: Modified | | Barium Swallow HISTORY: TUNNEL KILN FIRER recommended. Patient with problems swallowing. Recent | [...] now presented. | | | |Final signature: Reimngton Kruse MD 09/15/2017 9:59 AM | |Preliminary: [...] + + + | [facility] | [address] | [place], [place] | | | QU[facility] POINT OF CARE | [facility] | [address] | | | TESTS | | | [...] | 4.50 - 6.00 M/cu mm | [facility] | | | | | SERVICES, [...] (H) | 35.1 - 46.3 fL | [facility] | | | | | SERVICES, [...] | 0.0 - 0.3 % | [facility] | | | | | SERVICES, CORE | + + + + + | NRBC# | 0.00 | 0.00 - 0.02 K/cu mm | [facility] | | | | | SERVICES, CORE | + + + + + + + | Specimen | + + | Blood - Blood | + + + + + | Narrative | Performed At | + + + | New reference ranges for MCV, MCHC, PLT, IG% and IG# effective | [facility] | | 08/04/2017 | LABORATORY | | | SERVICES, CORE | + + + + + + + + | Performing | Address | City/State/Zipcode | Phone Number | | Organization | | | | + + + + + | [facility] | [address] | [place] [address] | | | SERVICES, CORE | [address] | | | + + + + + PHOSPHORUS, PLASMA (09/14/2017 12:02 AM) + +-------+ + + | Component | Value | Ref Range | Performed At | + +-------+ + + | PHOSPHORUS, PLASMA | 3.8 | 2.4 - 4.7 mg/dL | [facility] | | (LAB) | | | [facility] [place]G | + +-------+ + + + + | Specimen | + + | Blood - Blood | + + + + + + + | Performing | Address | City/State/Zipcode | Phone Number | | Organization | | | | + + + + + | [facility] | [address] | [place] [address] | | | XENIA LUNDBERG | [address] [...] + + + + + | [facility] | [address] | [place] [address] | | | SERVICES, CORE | TESS[address] [...] >60 mL/min | [facility] | | HA[place]IAN | | | TAMIK[place], CORE | + +---------+ + + | EGFR NON | >60 | >60 mL/min | [facility] | | -[place]ITIAN | | | SERVICES, CORE | + [...] | 4 - 11 mmol/L | [facility] | | | | | SERVICES, CORE | + +---------+ + + | POTASSIUM CMNT | No Hemo | | [facility] | | | | | SERVICES, [...] + + + + + | [facility] | [address] [facility] | [place] [address] | | | XENIA LUNDBERG | [address] [...] BUTCHER | [address] | [place], [place] | | | TORSTEN TSAI OF CARE | [facility] | [address] | | | TESTS | | | [...] [facility] | [address] | [place], [place] | | | [facility] | [address] | [address] | | | TESTS | | | | + + + + + CBC (HEMOGRAM) ONLY (09/13/2017 4:25 PM) + + + + + | Component | Value | Ref Range | Performed At | + + + + + | WHITE CELL COUNT | 15.26 (H) | 3.50 - 10.80 K/cu mm | [facility] | | | | | SERVICES, [...] (H) | 35.1 - 46.3 fL | [facility] | | | | | SERVICES, CORE | + + + + + | PLATELET COUNT | 314 | 150 - 400 K/cu mm | [facility] | | | | | SERVICES, CORE | + + + + + | MPV | 10.4 | 9.7 - 12.3 fL | [facility] | | | | | SERVICES, CORE | + + + + + | NRBC% | 0.0 | 0.0 - 0.3 % | [facility] | | | | | SERVICES, CORE | + + + + + | NRBC# | 0.00 | 0.00 - 0.02 K/cu mm | [facility] | | | | | SERVICES, CORE | + + + + + + + | Specimen | + + | Blood - Blood | + + + + + | Narrative | Performed At | + + + | New reference ranges for MCV, MCHC, PLT, IG% and IG# effective | [facility] | | 08/04/2017 | LABORATORY | | | SERVICES, CORE | + + + + + + + + | Performing | Address | City/State/Zipcode | Phone Number | | Organization | | | | + + + + + | [facility] | [address] | [place] [address] | | | SERVICES, XENIA | PARK [...] >60 mL/min | [facility] | | [place] | | | SERVICES, CORE | + +---------+ + + | EGFR NON | >60 | >60 mL/min | [facility] | | -HAITIAN | | | SERVICES, CORE | + [...] LABORATORY | | (LAB) | | | [facility] | + +---------+ + + | TOTAL CO2, PLASMA | 25 | 21 - 32 mmol/L | [facility] | | (LAB) | | | TAMIKA, [facility] | + +---------+ + + | CALCIUM, PLASMA | 7.4 (L) | 8.6 - 10.2 mg/dL | [facility] | | (LAB) | | | [place], [facility] | + +---------+ + + | CALCIUM(ALB [...] [facility] | | | | | [facility] | + +---------+ + + | ANION GAP | 7 | 4 - 11 mmol/L | [facility] | | | | | SERVICES, CORE | + +---------+ + + | ANION GAP(ALB | 11 | 4 - 11 mmol/L | [facility] | | CORRECTED) | | | SERVICES, CORE | + +---------+ + + + + | Specimen | + + | Blood - Blood | + + + + + | Narrative | Performed At | + + + | GFR is estimated using the MDRD equation recommended by the | [facility] | | National Kidney Disease Education Program. [...] | + + + + + | [facility] | [address] | [place] [address] | | | SERVICES, CORE | [address] | | | + + + + + X-RAY PORTABLE CHEST 1 VIEW (09/13/2017 3:54 PM) + + + | Narrative | Performed At | + + + | EXAM: SC CHEST 1 VIEW HISTORY: verify central line [...] Interface - 09/13/2017 3:54 PM PDT EXAM: SC CHEST 1 | | VIEW HISTORY: verify [...] [facility] | [address] | [place], [place] | | | [facility] | [address] | [id number] | | | TESTS | | | [...] bleeding was controlled with the argon beam clinical lab scientist. Dr. Young | | | was consulted [...] case. Alex Rubin MD | | | Consulting Business Developer Department of Urology [facility] | | | [facility] | | + + + ABG-FULL ABL, [...] MARQUAM | [address] | [place], [place] | | | QUIN POINT OF CARE | [facility] | [address] | | | TESTS | | | [...] CHAKAQUAM | [address] | [place], [place] | | | H[place], POINT OF CARE | [facility] | [address] | | | TESTS | | | [...] + + + + + | [facility] | [address] | [place], [place] | | | TORSTEN TSAI OF CARE | [address] | [address] | | | TESTS | | | | + + + + + SURGICAL PATHOLOGY (09/13/2017 12:02 PM) + + + + + | Component | Value | Ref Range | Performed At | + + + + + | Clinical History | N28.89 (ICD-10-CM) - | | [facility] | | | 593.9 (ICD-9-CM) - RENAL | | OF PATHOLOGY | | | MASS | | | + + + + + | Final Pathologic | A. Right kidney and | | [facility] | | Diagnosis | adrenal gland, [...] SYNOPTIC REPORTS | KIDNEY: | | [facility] | | | Nephrectomy (Kidney | [...] Received are 6 specimens | | [facility] | | | fresh in containers | | OF PATHOLOGY | | | labeled with the | | | | | patient's name (initials | | | | | DG) and medical record | | | | | number [id number]. | | | | | Kidney, Right [...] | =blackSubmitted: | | | | | Corporate Executive Chef A1: Renal | | | | | [...] 9 | | | | | o'clock. Corporate Executive Chef | | | | | sections are [...] use | Frozen section | | [facility] | | only - Final | [...] | | | | determined by [facility] | | | | | laboratories. It [...] | + + + + + | [facility] | [address] | [place] [address] | | | PATHOLOGY | [address] [...] + + | PRODUCT UNIT # | [id number] | | [facility] | | | [...] + + + | EXPIRATION DATE | [id number] | | [facility] | | | [...] + + | BLOOD PRODUCT CODE | [id number] | | [facility] | | | | | SERVICES, | | | | | TRANSFUSION | | | | | MEDICINE | + + + + + + + + + + | Performing | Address | City/State/Zipcode | Phone Number | | Organization | | | | + + + + + | [facility] | [address] | [place] [address] | | | SERVICES, | [address] [...] + + | PRODUCT UNIT # | [id number] | | [facility] | | | [...] + + + | EXPIRATION DATE | [id number] | | [facility] | | | [...] + + | BLOOD PRODUCT CODE | [id number] | | [facility] | | | | | SERVICES, | | | | | TRANSFUSION | | | | | MEDICINE | + + + + + + + + + + | Performing | Address | City/State/Zipcode | Phone Number | | Organization | | | | + + + + + | [facility] | [address] | [place] [address] | | | SERVICES, | [address] [...] - [place] | | | | | UQIN, POINT [...] BUTCHER | [address] | [place], [place] | | | TORSTEN TSAI OF CARE | [address] | [address] | | | TESTS | | | | + + + + + VINI-DANA MON (09/13/2017 9:39 AM) + + + + + | Component | Value | Ref Range | Performed At | + + + + + | PH ARTERIAL, POC | 7.44 | 7.37 - 7.44 | [facility] | | | | | QUIN, POINT OF | | | | | CARE TESTS | + + + + + | PO2 ARTERIAL, POC | 206 (H) | 72 - 104 mmHg | [facility] | | | | | QUIN, POINT OF | | | | | CARE TESTS | + + + + + | PCO2 ARTERIAL, POC | 38 | 32 - 43 mmHg | [facility] | | | | | [...] BUTCHER | [address] | [place], [place] | | | QU[facility] | [address] | [address] | | | TESTS | | | [...] [facility] | [address] | [place] [address] | | | SERVICES, | [address] [...] MARQUAM | [address] | [place], [place] | | | [facility] | [address] | [address] | | | TESTS | | | [...] 2 HOURS | | | NEEDED, Starting [facility] 09/15/17 at | | | 0632, Until 09/17/17 at 1832, | | | severe pain | | + +---+ | | | + +---+ + +---------+ +---+---+---+ | HYDROmorphone 0.5 mg/mL HEART COORDINATOR | New Bag | | | | | | (ADULT STANDARD DOSE) in 0.9 % | | 8 15:31 | | | | | NaCl HEART COORDINATOR Dose: 0.2 mg, Lockout | | PDT [...] + + +---+---+---+ | HYDROmorphone 0.5 mg/mL HEART COORDINATOR | Rate/Dos | | | | | | (ADULT STANDARD DOSE) in 0.9 % | e Verify | 8 23:29 | | | | | NaCl HEART COORDINATOR Dose: 0.1 mg, Lockout | | PDT [...] | | | dose on [facility] 09/15/17 at 0715, | | | [...] | | | | | NEEDED, Starting [facility] 09/15/17 at | | | | [...]
--- OUTSIDE RECORDS SUMMARY | ~2017-11-22 | XMS | Encounter Summary ---
Demographics + + + | Address | [address] | | | [place] [address] | + + + | Home Phone | | + + + | Preferred Language | Unknown | + + + | Marital Status | | + + + | Yazidism Affiliation | LDS | + + + [...] + | MILLY NGUYEN | ECON | [address] | | | | | [place], | | | | | [place] [address] | | + + + + + | Holly Burrell | ECON | Unknown | | + + + + + Care Team Providers + +------+ + | Care Auto Service Dispatcher Name | Role | Phone | + [...] | | | | | floor [address] [facility] | | | | | | [facility] | | | | | | [place], [place] | | | | | | [address] | | | +--------+ + + + [...] + + | 12/20/ | Diagnostic | Semiconductor Wafers Etcher Stripper | Nils Woody, | | | 2018 | Visit | | [address]RETCHEN [address] | | | | | [address] | | | | | | [place] | | | | | | [address] | | | | | | | | +--------+ + + + + as of this encounter Visit Diagnoses Not on filein this encounter"
--- OUTSIDE RECORDS SUMMARY | ~2017-11-22 | XMS | Clinical Summary ---
Demographics + + + | Address | [address] | | | [place] [address] | + + + | Home Phone | | + + + | Preferred Language | Unknown | + + + | Marital Status | | + + + | Orthodox Affiliation | Unknown | + + + | Race | Unknown | + + + | Ethnic Group | Unknown | + + + Author + + + | Author | [facility] | + + + | Organization | [facility] | + + + | Address | Unknown | + + + | Phone | Unavailable | + + + Support + + +---------+ + | Name | Relationship | Address | Phone | + + +---------+ + | Yuki Nguyen | ECON | Unknown | | + + +---------+ + Care Team Providers + +------+ + | Care Brim Pouncing Machine Operator Name | Role | Phone | + +------+ + | Jeremy Adrian MD | PP | | + +------+ + Allergies No Known Allergies Current Medications + + +---------+---------+------+------+-------+ | Prescription | Sig. | Disp. | Refills | Star | End | Statu | | | | | | t | Date | s | | | | | | Date | | | + + +---------+---------+------+------+-------+ | Canagliflozin | Take by mouth | | | | | Activ | | (INVOKANA PO) | daily. | | | | | e | + + +---------+---------+------+------+-------+ | METFORMIN HCL PO | Take by mouth 2 | | | | | Activ | | | (two) times daily. | | | | | e | + + +---------+---------+------+------+-------+ | insulin glargine | Inject into the | | | | | Activ | | (LANTUS) 100 UNIT/ML | skin daily. | | | | | e | | injection | | | | | | | + + +---------+---------+------+------+-------+ | Pantoprazole | Take by mouth | | | | | Activ | | Sodium (PROTONIX PO) | daily. | | | | | e | + + +---------+---------+------+------+-------+ | SIMVASTATIN PO | Take by mouth | | | | | Activ | | | daily. | | | | | e | + + +---------+---------+------+------+-------+ | Valsartan (DIOVAN | Take by mouth | | | | | Activ | | PO) | daily. | | | | | e | + + +---------+---------+------+------+-------+ | aspirin 81 MG | Take by mouth. | | | 06/ | | Activ | | chewable tablet | | | | 4/20 | | e | | | | | | 18 | | | + + +---------+---------+------+------+-------+ | Canagliflozin | Take by mouth. | | | 2 | | Activ | | (INVOKANA) 100 MG | | | | 6/20 | | e | | tablet | | | | 16 | | | + + +---------+---------+------+------+-------+ | pantoprazole | Take by mouth. | | | | | Activ | | (PROTONIX) 40 MG | | | | | | e | | tablet | | | | | | | + + +---------+---------+------+------+-------+ | simvastatin | Take by mouth. | | | | | Activ | | (ZOCOR) 40 MG tablet | | | | | | e | + + +---------+---------+------+------+-------+ | metFORMIN | Take 1500 mg by | | | | | Activ | | (GLUCOPHAGE) 500 MG | mouth every morning | | | | | e | | tablet | and 1000 mg by mouth | | | | | | | | every evening | | | | | | + + +---------+---------+------+------+-------+ | insulin glargine | Inject into the | | | 04/2 | | Activ | | (LANTUS SOLOSTAR) | skin. | | | 6/20 | | e | | 100 UNIT/ML | | | | 16 | | | | injection | | | | | | | + + +---------+---------+------+------+-------+ | | Take by mouth. | | | 04/0 | | Activ | | valsartan-hydrochlor | | | | 7/20 | | e | | othiazide | | | | 16 | | | | (DIOVAN-HCT) | | | | | | | | 160-12.5 MG per | | | | | | | | tablet | | | | | | | + + +---------+---------+------+------+-------+ | ondansetron | Take 1 tablet by | 40 | 1 | 07/1 | | Activ | | (ZOFRAN) 8 MG | mouth every 8 | tablet | | 6/20 | | e | | tabletIndications: | (eight) hours as | | | 18 | | | | Cancer of kidney, | needed for Nausea. | | | | | | | right ([facility]) | | | | | | | + + +---------+---------+------+------+-------+ | prochlorperazine | Take 1 tablet by | 40 | 1 | / | | Activ | | (COMPAZINE) 10 MG | mouth every 6 (six) | tablet | | 6/20 | | e | | tabletIndications: | hours as needed for | | | 18 | | | | Cancer of kidney, | Nausea or Vomiting. | | | | | | | right ([facility]) | | | | | | | + + +---------+---------+------+------+-------+ | SUNItinib (SUTENT) | Take 1 capsule by | 28 | 11 | 07/ | 06 | Activ | | 37.5 MG | mouth daily for 336 | capsule | | 6/20 | 7/20 | e | | capsuleIndications: | days. Take once | | | 18 | 19 | | | Cancer of kidney, | daily x 4 weeks | | | | | | | right (HCC) | followed by a 2 week | | | | | | | | rest period. | | | | | | + + +---------+---------+------+------+-------+ Active Problems + + + | Problem | Noted Date | + + + | Cancer of kidney, right (HCC) | 10/04/2017 | + + + | Encounter for chemotherapy management | 10/04/2017 | + + + Encounters +--------+ + + + + | Date | Type | Specialty | Care Team | Description | +--------+ + + + + | 11/17/ | Office | | Gabriella, | Cancer of kidney, | | 2018 | Visit | | Stephanie Dubon MD | right (HCC) (Primary | | | | | | Dx); Encounter for | | | | | | chemotherapy | | | | | | management | +--------+ + + + + | 11/17/ | Telephone | | Gracie Brooks MA | | | 2018 | | | | | +--------+ + + + + | 11/17/ | Documentati | | Nanda Vaughan | Oncology Nurse | | 2018 | on Only | | Aleyda RN | Navigation | +--------+ + + + 11/14/ | Documentati | | Gabriella, | Sangeetha [address] | | 2018 | on Only | | Stephanie Dubon MD | [facility], | | | | | | [facility] ) | +--------+ + + + + | 10/31/ | Emergency | | Katalina Bernal, | Other dysphagia | | 2017 | | | DO | (Primary Dx) | +--------+ + + + + | 10/31/ | Documentati | | Gabriella, | Sangeetha (CT HEAD, | | 2017 | on Only | | Stephanie Dubon MD | [facility] | | | | | | [facility] ) | +--------+ + + + + | 10/31/ | Telephone | | Nanda Vaughan | Oncology Nurse | | 2017 | | | NAHUM Maynard | Navigation | +--------+ + + + + | 10/21/ | Telephone | | Jessica Kraus, | | | 2017 | | | PATIENT ASSESSMENT COORDINATOR | | +--------+ + + + + | 10/14/ | Telephone | | Odette Dill RN | Triage | | 2017 | | | | | +--------+ + + + + | 10/13/ | Documentati | | Gabriella, | Other (IMAGING | | 2017 | on Only | | Stephanie Dubon MD | [facility] | | | | | | ) | +--------+ + + + + | 10/13/ | Telephone | | Niecy, | | | 2017 | | | EMILI Harris | | +--------+ + + + + | 10/13/ | Sophie Only | | Gabriella, | Cancer of kidney, | | 2017 | | | Stephanie Dubon MD | right (HCC) (Primary | | | | | | Dx) | +--------+ + + + + | 10/12/ | Documentati | | Marc Chinchilla | Medication Refill | | 2017 | on Only | | | (Sunitinib; Oral | | | | | | chemo - New ) | +--------+ + + + + | 10/10/ | Documentati | | Tequila Griffin RPH | | | 2017 | on Only | | | | +--------+ + + + + | 10/10/ | Orders Only | | Radha Miller RPH | | | 2017 | | | | | +--------+ + + + + | 10/10/ | Orders Only | | Tequila Griffin, RPH | | | 2018 | | | | | +--------+ + + + + | 10/10/ | Orders Only | | Tequila Griffin, RPH | Cancer of kidney, | | 2018 | | | | right (HCC) (Primary | | | | | | Dx) | +--------+ + + + + | 10/06/ | Documentati | | Gabriella, | Other (C/N, L. | | 2018 | on Only | | Stephanie Dubon MD | [facility] [place], | | | | | | [facility] ) | +--------+ + + + + | 10/04/ | Office | | Gabriella | Encounter for | | 2017 | Visit | | Stephanie Dubon MD | antineoplastic | | | | | | chemotherapy | | | | | | (Primary Dx); Cancer | | | | | | of kidney, right | | | | | | (HCC) | +--------+ + + + 10/04/ | Documentati | | Nanda Vaughan | Oncology Nurse | | 2017 | on Only | | NAHUM Maynard | Navigation | +--------+ + + + + | 09/23/ | Documentati | | [place], | Other (CONSULT, | | 2018 | on Only | | Stephanie Dubon MD | GIUSEPPEA/REFERRAL | | | | | | , ADITI) | +--------+ + + + + | 09/13/ | Documentati | | [place], | Other (PATH/OP NOTE, | | 2018 | on Only | | Stephanie Dubon MD | [place]) | +--------+ + + + + | 09/01/ | Documentati | | [place], | Other (MARINA WU, | | 2018 | on Only | | Stephanie Dubon MD | [facility]) | +--------+ + + + + | 08/31/ | Documentati | | [place], | Other (DIAGNOSTICS, | | 2018 | on Only | | Stephanie Dubon MD | [facility]) | +--------+ + + + + from Last 3 Months Family History + + +------+ + | Medical History | Relation | Name | Comments | + + +------+ + | Cancer | Mother | | | + + +------+ + | Liver cancer | Mother | | | + + +------+ + + +------+ + + | Relation | Name | Status | Comments | + +------+ + + | Father | | | | + +------+ + + | Mother | | | | + +------+ + + Social History + +-------+ +--------+------+ [...] AM PDT | + + + + Plan of Treatment +--------+---------+ + + + | Date | Type | Specialty | Care Team | Description | +--------+---------+ + + + | 12/21/ | Office | | Gabriella, | | | 2017 | Visit | | Stephanie Dubon MD | | | | | | [address] | | | | | | [place] | | | | | | [address] | | | | | | | | +--------+---------+ + + + + + + + + | Health Maintenance | Due Date | Last Done | Comments | + + + + + | Vaccine: | | | | | Dtap/Tdap/Td (1 - | 6 | | | | Tdap) | | | | + + + + + | Colon Cancer | | | | | Screening | 7 | | | | (Colonoscopy) | | | | + + + + + | Vaccine: Zoster (1 | | | | | of 2) | 7 | | | + + + + + | Vaccine: | | | | | Pneumococcal 65+ | 2 | | | | High/Highest Risk (1 | | | | | of 2 - PCV13) | | | | + + + + + | Vaccine: Influenza | | | | | (#1) | 8 | | | + + + + + Procedures + +--------+ + + + | [...] + +--------+ + + + from Last 3 Months Results Urinalysis (reflex to micro/reflex to culture) (10/31/2017 7:11 PM) + + + + + | Component | Value | Ref Range | Performed At | + + + + + | COLOR UA | COLORLESS | | [facility] | + + + + + | CLARITY | CLEAR | | [facility] | + + + + + | Specific [place], UA | 1.006 | 1.002 - 1.030 | [facility] | + + + + + [...] | 7.0 | 5.0 - 8.0 | [facility] | + + + + + | BLOOD | NEGATIVE | NEGATIVE | [facility] | + + + + + | KETONES | NEGATIVE | NEGATIVE mg/dL | [facility] | + + + + + | BILIRUBIN | NEGATIVE | NEGATIVE | [facility] | + + + + + | GLUCOSE | >500 (A)Comment: Testing | NEGATIVE mg/dL | [facility] | | | performed at [facility];[address] | | | | | [address];[place] | | | | | [address] | | | + + + + + + + | Specimen | + + | Urine, Clean Catch | + + + + + + + | Performing | Address | City/State/Zipcode | Phone Number | | Organization | | | | + + + + + | [facility] | [address] | [place] [address] | | + + + + + aPTT (10/31/2017 6:33 PM) + + + + + | Component | Value | Ref Range | Performed At | + + + + + | APTT | 30Comment: Testing | 23 - 32 seconds | [facility] | | | performed at [facility];[address] | | | | | [address];[place] | | | | | [address] | | | + + + + + + + | Specimen | + + | Blood | + + + + + + + | Performing | Address | City/State/Zipcode | Phone Number | | Organization | | | | + + + + + | [facility] | [address] | [place] [address] | | + + + + + Protime (10/31/2017 6:33 PM) + + + + + | Component | Value | Ref Range | Performed At | + + + + + | INR | 1.0Comment: REFERENCE | | [facility] | | | RANGE:0.9 - | [...] | | | | | performed at [facility];[employer] | | | | | [address];[place], [place] | | | | | [address] | | | + + + + + + + | Specimen | + + | Blood | + + + + + + + | Performing | Address | City/State/Zipcode | Phone Number | | Organization | | | | + + + + + | [facility] | [address] | [place] [address] | | + + + + + CBC with differential (10/31/2017 6:33 PM) + + + + + | Component | Value | Ref Range | Performed At | + + + + + | WBC | 7.10 | 3.80 - 11.00 K/uL | [facility] | + + + + + | RBC | 4.50 | 4.20 - 5.70 M/uL | [facility] | + + + + + | HGB | 10.5 (L) | 13.2 - 17.0 g/dL | [facility] | + + + + + | HCT | 34.1 (L) | 39.0 - 50.0 % | [facility] | + + + + + | MCV | 75.8 (L) | 80.0 - 100.0 fl | [facility] | + + + + + | MCH | 23.2 (L) | 27.0 - 34.0 pg | [facility] | + + + + + | MCHC | 30.6 (L) | 32.0 - 35.5 g/dL | [facility] | + + + + + | RDW SD | 48.1 | 37 - 53 fl | [facility] | + + + + + | PLT | 383 | 150 - 400 K/uL | [facility] | + + + + + | MPV | 9.0 | fl | [facility] | + + + + + | DIFF TYPE | AUTOMATED | | [facility] | + + + + + | NEUTROPHILS | 62.52 | % | [facility] | + + + + + [...] 0.05 | 0.00 - 0.10 K/uL | [facility] | + + + + + | MORPHOLOGY | 1+ | | [facility] | | | Comment: | | | | | POIK | | | | | 2+ | | | | | MICRO | | | | | 1+ | | | | | HYPO | | | | | NORMAL PLT MORPH | | | | | | | | + + + + + | Platelet Estimate | ADEQUATE | | [facility] | + + + + + | Diff Comment | SLIDE SCANNED, AGREES | | [facility] | | | WITH AUTOMATED | | | | | RESULTS.Comment: Testing | | | | | performed at [facility];[address] | | | | | [address];[place], [place] | | | | | [address] | | | + + + + + + + | Specimen | + + | Blood | + + + + + + + | Performing | Address | City/State/Zipcode | Phone Number | | Organization | | | | + + + + + | [facility] | [address] | [place] [address] | | + + + + + Magnesium (10/31/2017 6:33 PM) + + + + + | Component | Value | Ref Range | Performed At | + + + + + | MAGNESIUM | 2.5 (H)Comment: Testing | 1.7 - 2.4 mg/dL | [facility] | | | performed at [facility];[address] | | | [address];[place] | | | | | [address] | | | + + + + + + + | Specimen | + + | Blood | + + + + + + + | Performing | Address | City/State/Zipcode | Phone Number | | Organization | | | | + + + + + | [facility] | [address] | [place] [address] | | + + + + + Lipase (10/31/2017 6:33 PM) + + + + + | Component | Value | Ref Range | Performed At | + + + + + | LIPASE | 146Comment: Testing | 73 - 393 U/L | [facility] | | | performed at [facility];[address] | | | | [address];[place] | | | | | [address] | | | + + + + + + + | Specimen | + + | Blood | + + + + + + + | Performing | Address | City/State/Zipcode | Phone Number | | Organization | | | | + + + + + | [facility] | [address] | [place] [address] | | + + + + + Comprehensive metabolic panel (10/31/2017 6:33 PM) + + + + + | Component | Value | Ref Range | Performed At | + + + + + | SODIUM | 139 | 135 - 145 mmol/L | [facility] | + + + + + | POTASSIUM | 4.2 | 3.5 - 4.9 mmol/L | [facility] | + + + + + | CHLORIDE | 104 | 99 - 109 mmol/L | [facility] | + + + + + | CO2 | 28 | 23 - 32 mmol/L | [facility] | + + + + + | ANION GAP AGAP | 12 | 5 - 20 mmol/L | [facility] | + + + + + | GLUCOSE | 128 (H) | 65 - 99 mg/dL | [facility] | + + + + + | BUN | 23 | 8 - 25 mg/dL | [facility] | + + + + + | CREATININE | 1.3 | 0.70 - 1.30 mg/dL | [facility] | + + + + + | BUN/CREAT | 18 | | [facility] | + + + + + | CALCIUM | 9.3 | 8.5 - 10.5 mg/dL | [facility] | + + + + + | TOTAL PROTEIN | 8.7 (H) | 6.3 - 8.2 g/dL | [facility] | + + + + + | Albumin | 3.8 | 3.3 - 4.8 g/dL | [facility] | + + + + + | GLOBULIN | 5.0 (H) | 1.3 - 4.9 g/dL | [facility] | + + + + + | A/G | 0.8 (L) | 1.0 - 2.4 | [facility] | + + + + + | TBIL | 0.3 | 0.1 - 1.5 mg/dL | [facility] | + + + + + | ALK PHOS | 123 (H) | 35 - 115 U/L | [facility] | + + + + + | AST | 11 | 10 - 45 U/L | [facility] | + + + + + | ALT | 16 | 10 - 65 U/L | [facility] | + + + + + | EGFR | 54 (L)Comment: GFR <60: | >60 mL/min/1.73m2 | [facility] | | | CHRONIC KIDNEY DISEASE, [...] the | | | | | MDRD [facility] traceable | | | | | equation.Testing | | | | | performed at [facility];[address] | | | | | [facility];[place], [place] | | | | | [address] | | | + + + + + + + | Specimen | + + | Blood | + + + + + + + | Performing | Address | City/State/Zipcode | Phone Number | | Organization | | | | + + + + + | [facility] | [address] | [place] [address] | | + + + + + from Last 3 Months Insurance +---------+--------+ +------+-------+ + | Payer | Benefi | Subscriber | Type | Phone | Address | | | t Plan | ID | | | | | | / | | | | | | | Group | | | | | +---------+--------+ +------+-------+ + | [employer] | PREMER | [id number] | | | [address] [address] | | | A BLUE | 7 | | | [place], [place] | | | CARD | | | | [phone] | +---------+--------+ +------+-------+ + + +--------+ +--------+ + + | [...] | | | christos | | | [phone] | [phone] | + +--------+ +--------+ + +
--- OUTSIDE RECORDS SUMMARY | ~2017-11-22 | XMS | Encounter Summary ---
Demographics + + + | Address | [address] | | | [place] [address] | + + + | Home Phone | | + + + | Preferred Language | Unknown | + + + | Marital Status | | + + + | Caodaism Affiliation | LDS | + + + | Race | White | + + + | Ethnic Group | Not or | + + + Author + + + | Author | [facility] | + + + | Organization | [facility] | + + + | Address | Unknown | + + + | Phone | Unavailable | + + + Support + + + + + | Name | Relationship | Address | Phone | + + + + + | MILLY NGUYEN | ECON | [address] | | | | | [place], | | | | | [place] [address] | | + + + + + | Holly Burrell | ECON | Unknown | | + + + + + Care Team Providers + +------+ + | Care Accountant Manager Name | Role | Phone | + +------+ + | Jeremy Adrian MD | PCP | | + +------+ + Reason for Visit + + + | Reason | Comments | + + + | Pre-operative | | | evaluation | | + + + Encounter Details +--------+---------+ + + + | Date | Type | Department | Care Team | Description | +--------+---------+ + + + | 09/01/ | Office | Preoperative | Homero Ocampo, | Preoperative | | 2018 | Visit | Medicine Clinic at | [address] | examination (Primary | | | | [facility] 4th Floor Day | [facility] [address] | Dx); Right renal | | | | Stay [address] | [place], [place] | mass; Essential | | | | [facility] | [address] | hypertension; Type 2 | | | | Mailcode: UHN65 | [phone] | diabetes mellitus | | | | [address] | | with complication, | | | | [address] [place], [place] | | with long-term | | | | [address] | | current use of | | | | [phone] | | insulin ([facility]); | | | | | | Gastroesophageal | | | | | | reflux disease, | | | | | | esophagitis presence | | | | | | not specified; | | | | | | Cochlear implant in | | | | | | place | +--------+---------+ + + + Anesthesia Record + + + + + | Procedure Name | Responsible | Anesthesia Start | Anesthesia Stop Time | | | Anesthesiologist | Time | | + + + + + | RADICAL NEPHRECTOMY | Tushar Jorgensen MD | 09/13/17 0727 | 09/13/17 1448 [...] | Meds | +------+ + + + No medications | on file. | + + + + + | No agents on file. | + + + + | No blood administrations on file. | + + +--------+ + + + | Type | Details | Placement | Removal | +--------+ + + + | Incisi | 09/13/17; 957; Right; | 09/13/17957 by | | | on | Transverse; abdomen | Zeb Hanson RN | | +--------+ + + + | Periph | 09/13/17; 58; Left; Hand; 18 g; | 09/13/17 0558 by | 09/16/17 0800 by | | eral | Positive; 09/16/17; 0800 | Helen Ortiz RN | Xochilt Suarez RN | | IV | | | | +--------+ + + + | Periph | 09/13/17; 0749; Tushar Smithisrrael, | 09/13/17 0749 by | 09/16/17 0800 by | | angel | ; Right; Wrist; 16 g; 09/16/17; | Scot Alicea MD | Xochilt Suarez RN | | IV | 0800 | | | +--------+ + + + | Arteri | 09/13/17; 0758; Scot Alicea MD; | 09/13/17 0758 by | 09/14/17 0600 by Sharron | | al | Standard; Left; Radial; 20g; | Scot Alicea MD | NAHUM Velásquez | | Line | 09/14/17; 0600; Per order | | | +--------+ + + + | Urethr | 09/13/17; 0800; Josefa; 16 Fr.; 10 | 09/13/17 0800 by | 09/15/17 1300 by | | al | mL; 09/15/17; 1300 | Zeb Hanson RN | Gautam Cristobal RN | | Cathet | | | | | er | | | | +--------+ + + + | Double | 09/13/17; 0819; Right; Neck; 9 | 09/13/17 0819 by | 09/14/17 1130 by | | Lumen | Fr.; Internal Jugular; 09/14/17; | Scot Alicea MD | Carlee Deras RN | [...] + | Blood Pressure | 146/80 | 09/01/2017 11:18 AM PDT | + + + + | Pulse | 75 | 09/01/2017 11:18 AM PDT | + + + + | Temperature | 36.7 C (98 F) | 09/01/2017 11:18 AM PDT | + + + + | Respiratory Rate | 16 | 09/01/2017 11:18 AM PDT | + + + + | Oxygen Saturation | 98% | 09/01/2017 11:18 AM PDT | + + + + | Inhaled Oxygen | - | - | | Concentration | | | + + + + | Weight | 71.2 kg (157 lb) | 09/01/2017 11:18 AM PDT | + + + + | Height | 170.2 cm (5' 7") | 09/01/2017 11:18 AM PDT | + + + + | Body Mass Index | 24.59 | 09/01/2017 11:18 AM PDT | + + + + in this encounter Instructions Patient Instructions - Homero Ocampo MD - 09/01/2017 2:00 PM PDT PREOPERATIVE INSTRUCTIONS Empty stomach before surgery NOTHING to eat or drink after midnight the night before surgery. This includes water, coffee, candy, mints, gum. Medications Instructions On the evening before your surgery, take HALF the dose of Lantus (6 units) On the morning of surgery TAKE the following medications with a sip of water: Protonix On the morning of surgery DO NOT TAKE the following medications: Invokana Metformin Januvia Valsartan Other medications not specifically mentioned are at your discretion as to taking or not taking on the morning of surgery. Do not take any Aspirin, fish oil supplements, vitamin E or non-steroidal anti-inflammat ory (NSAIDs i.e. Advil, Aleve, Ibuprofen) or herbal supplements 7 days prior to your surgery . These drugs may interfere with normal blood clotting and may cause excessive bleeding and bruising during or after the surgery. If you need a pain medication for general purposes, use Tylenol as directed. OK to take it even on the morning of surgery, if needed. If you are in doubt about any medications that you are taking, please contact our office . Other Important Guidelines ? Do not shave the surgical area Do not smoke, drink alcohol or use recreational drugs for 24 hours before your surgery Watch for any change in your health condition. Let your surgeon know right away if you do not feel well. ? Do not wear perfume, lotions, deodorant, powder or hairspray. Do not wear any jewelry to the hospital. Wear loose, comfortable clothing. Leave all your valuables at home. Allow enough travel time so you re not late for your check in for surgery. Please remember to brush your teeth the night before and the morning of your procedure. Preventing post op complications while you are in the hospital Use an incentive spirometer or peep breathe to keep your lungs working properly an d to help prevent respiratory complications. It helps you take long, deep breaths. Use it at least once every hour while you are awake. Leg and feet exercises will maintain good circulation and help prevent blood clots in yo ur legs. Sometimes your doctor will order sequential air compression stockings. Compressed air helps the circulation in your legs. Walking and moving will help stimulate normal circulation and deep breathing. After you r surgery, your nurse may ask you to sit, stand or walk. Surgery check-in location: Admitting - [facility], ninth floor [facility] Surgery Check in Time: The Preoperative Medicine Clinic is not in the position to give you accurate information regarding surgical check in time. We refer you back to your surgical office regarding this important information. Going Home Your surgical team will decide when you are medically ready to go home. If you stayed in the hospital after surgery, please arrange for your ride to come for yo u around 9AM on the day your doctor says you can go home. If you have questions or concerns after you go home, call your doctor s office. If it is after office hours, call the [facility] tractor crane operator at [phone] and ask them to page him or h er. in this encounter Progress Notes Homero Ocampo MD - 09/01/2017 2:00 PM PDTFormatting of this note may be different from the original. PREOPERATIVE CONSULT NOTE Author: HOMERO OCAMPO MD Referring Physician: Dr. Cristy Rubin Primary Care Provider: Jeremy Adrian MD Reason for Consult: Preoperative evaluation and risk assessment Proposed Procedure/Date: Open nephrectomy, caval thrombectomy and retroperitoneal LN dissec tion 09/13/2017 HISTORY OF PRESENT ILLNESS: Stefan Nguyen is a 71 y.o. male here for preoperative eval uation of medical problems in anticipation of the above procedure. Pt has dx of renal cance r. Symptoms related to the diagnosis: noted hematuria about 3 weeks ago; was seen/evaluated and ultrasound was done showing a mass. He continued with intermittent hematuria but also dysuria and urinary frequency. Pt reports he was just treated for an infection but still recio s urinary frequency needed to urinate 4-5 times per hour. Pertinent medical problems discussed during this visit: DM 2 -- pt on lantus 10-20 units at bedtime along with metformin, Januvia and Invokana. Reports good control HTN -- well controlled with valsartan GERD -- managed with pantoprazole Hearing loss, s/p bilateral cochlear implants; had been evaluated in [facility] in 2016 and 201 5 Perioperative cardiac risks: CAD no CHF no CVA no CKD with creatinine >2 no DM treated with insulin yes Functional Capacity: Moderate (4-10 mets) Prior complications of anesthesia: none ROS: Pulmonary: no shortness of breath no cough no stridor no wheezing no Recent Respiratory Infectio n Pt. Has no asthma no COPD No dx of sleep apnea Cardiovascular: Functional Capacity: Moderate - cyanosis, palpitations and syncope no chest pain no CHF hypertension well controlled n o CAD Sx no valvular problems/murmurs no arrhythmia no Cardiac assist devices no pacemak er/ICD GI/Hepatic: no GI Bleed GERD Control: well controlled no liver disease no hepatitis Renal: no renal failure no electrolyte abnormalities no dialysis Endo: Diabetes: type 2 oral hypoglycemics and insulin injections no Endocrine Other no Hx Prince icosteroid Use Neuro/Psych: No Head Conditions No Spine Conditions No Neuromuscular Conditions no Psych Disorder no p ain Current pain score: 0 Musculoskeletal: no arthritis No Muscular Disorders Heme/Onc: Pt. has: no active bleeding no bleeding disorder No clotting disorders No hemoglobin d isorders malignancy Renal Infectious Disease: no MRSA no VRE Skin: no open wounds no skin conditions AutoImmune Disorders: No autoimmune disorders Current medications reviewed / updated Current Outpatient Prescriptions Medication Sig acetaminophen 500 mg oral tablet Take 1,000 mg by mouth every six hours as needed. ASPIRIN/ACETAMINOPHEN/CAFFEINE (EXCEDRIN EXTRA STRENGTH ORAL) Take by mouth once daily . HYDROcodone-acetaminophen 5-325 mg oral tablet Take 1-2 tablets by mouth every six hour s as needed. INVOKANA 100 mg oral tablet Take 1 tablet by mouth once daily. LANTUS SOLOSTAR 100 unit/mL (3 mL) subcutaneous insulin pen 10 Units once daily at bedt gordon. metFORMIN 500 mg oral tablet Take 1,000 mg by mouth two times daily. pantoprazole 40 mg oral tablet,delayed release (DR/EC) Take 40 mg by mouth once daily. simvastatin 40 mg oral tablet Take 40 mg by mouth once daily in the evening. sitaGLIPtin (JANUVIA) 100 mg oral tablet Take 100 mg by mouth once daily. tamsulosin 0.4 mg oral capsule,extended release 24hr Take 0.4 mg by mouth once daily. valsartan-hydrochlorothiazide 160-12.5 mg oral tablet Take 1 tablet by mouth once daily . Level of confidence in medication reconciliation accuracy: High Allergies reviewed / updated Allergies Allergen Reactions Phenazopyridine Nausea and Vomiting Past medical history reviewed / updated Past Medical History: Diagnosis Date DM2 (diabetes mellitus, type 2) (HCC) Esophageal stricture says food pockets in esophagus and has trouble with solid foods sometimes...prefers soft f ood. GERD (gastroesophageal reflux disease) Hyperlipidemia Hypertension Post-polio syndrome SNHL (sensorineural hearing loss) bilateral Past surgery reviewed / updated Past Surgical History Procedure Laterality Date Inner ear surgery 1975 Tonsillectomy and adenoidectomy Appendectomy Cochlear implant Bilateral 2016 Family history reviewed / updated Family History Problem Relation Cancer Mother liver, cause of Hypertension Father Diabetes Father Diabetes Brother Social history reviewed / updated Social History Substance Use Topics Smoking status: Former Smoker Packs/day: 0.20 Years: 1.00 Types: Cigarettes Quit date: 1966 Smokeless tobacco: Never Used Alcohol use No PHYSICAL EXAM: Last Vitals: BP 146/80 | Pulse 75 | Temp (Src) 36.7 C (98 F) (Oral) | RR 16 | Ht 1.702 m (5' 7") | Wt 71.2 kg (157 lb) | SpO2 98% | BMI 24.59 kg/(m^2) Body mass index is 24.59 kg/ m. General: Appearance: Healthy, Age appropriate and No distress LOC: Alert HEENT: Normocephalic/Atraumatic, Normal sclerae/conjunctivae, PERRL, EOMI and No thyromegal y Airway: Dentition: dentures-upper dentures-lower Mallampati: 1 Mouth Opening: > 3 cm TM Di stance:> 6 cm C-Spine ROM: Normal Neck Anatomy: Normal Jaw Protrusion: Normal (lower incisors go above upper incisors) Pulmonary: Respiratory: pulmonary exam normal Breath Sounds: breath sounds normal Cardiovascular: Rhythm: Regular Rate: Normal Cardiovascular comments: No M/G/R; no pedal ed suki Abdomen: General: Normal Body Habitus: normal Musculoskeletal: Range of Motion: Normal range of motion Musculoskeletal Comments: No obvi ous deformities noted. Neuro/Psych: Affect: Normal Cognitive Status: Normal Speech: Normal speech Strength: Normal Muscle Tone: Normal Movement: Normal Gait Station: Normal Cranial Nerves: Normal Sensation: Normal to light touch Comments: No obvious neurologic deficits noted Skin: Color: skin color normal Texture: Normal Turgor: turgor normal Temperature: Warm Other Implanted Devices: Implanted devices: None LABS & DATA REVIEWED/ORDERED Lab Results Component Value Date WBC 8.81 09/01/2017 HB 9.6 09/01/2017 HCT 32.2 09/01/2017 PLT 452 09/01/2017 MCV 78.2 09/01/2017 RDW 47.8 09/01/2017 Lab Results Component Value Date NA 135 09/01/2017 K 4.6 09/01/2017 CL 103 09/01/2017 BICARB 23 09/01/2017 BUN 16 09/01/2017 CR 1.30 09/01/2017 GLU 99 09/01/2017 CA 9.1 09/01/2017 AST 10 09/01/2017 ALT 14 09/01/2017 AP 150 09/01/2017 TBILI 0.2 09/01/2017 TP 8.7 09/01/2017 ALB 3.6 09/01/2017 Lab Results Component Value Date ABO A 09/01/2017 RH Positive 09/01/2017 Lab Results Component Value Date A1C 13.8 (A) 12/03/2014 EKG: Personally reviewed. NSR, HR 80/min Perioperative risk calculators 2014 ACC/AHA Perioperative Cardiac Risk Stratification (assumes non-emergent, non-cardiac p rocedure) Are active cardiac conditions present? No Calculate the combined surgical and patient-specific risk: using the Cortés perioperative ca rdiac risk calculator, the risk of major adverse cardiac event (MACE) is: less than 1%. No further risk stratification for coronary disease is indicated. Estimated ASA class 3 Other perioperative risk calculators: Not Applicable Mini-Cog Total Score: 5 Frailty Scale Total Score: ASSESSMENT and RECOMMENDATIONS: Perioperative risk assessment: Stefan Nguyen is a 71 y.o. male with diagnosis of renal cancer, scheduled for open nephrectomy. Based on the clinical information obtained an d reviewed during this visit, the overall assessment is that the patient is having elective major surgery with identified risk factors. The patient is stable / optimized for surgery. Additional testing/optimization is not needed. Medication management recommendations: The patient was advised to continue all usual med ications except as noted in Patient Instructions (After Visit Summary given to pt) Pre-procedure antibiotic recommendation: Per standard protocol. HTN -- pt advised to hold valsartan on the morning of the procedure. DM 2 -- pt advised to take half usual dose of Lantus and hold all oral hypoglycemic meds . GERD -- pt to continue pantoprazole Anemia -- unclear etiology, but it could be related to the underlying problem with hemat uria. Thank you for the opportunity to contribute to this patient's care. HOMERO OCAMPO MD [facility] PREOPERATIVE MEDICINE CLINIC AT [facility] 4TH FLOOR DAY STAY [address] [facility] [address] [facility] [address] I spent time (35 minutes, >50% of the visit) counseling the pt regarding perioperative risk (cardiac/bleeding/ DVT/ respiratory failure/ infection, etc) and methods to mitigate risk. I advised the patient regarding NPO requirements, hydration before surgery, showering, gen eral body hygiene. All pre-procedure instructions given to the patient (after-visit summary ). All of patient's questions were addressed. The patient verbalized understanding of the instructions given. in this encounter Plan of Treatment +--------+ + + + + | Date | Type | Specialty | Care Team | Description | +--------+ + + + + | 12/20/ | Diagnostic | Nerve Specialist | Nils Woody, | | | 2018 | Visit | | [facility] [address] | | | | | [address] [facility] | | | | | | [address] [place], [place] | | | | | | [address] | | | | | | | | +--------+ + + + + + +--------+ + + | Name | Priori | Associated Diagnoses | Order Schedule | | | ty | | | + +--------+ + + | COMMUNICATION TO [facility] LAB DRAW | Routin | | Ordered: 09/01/2017 | | | e | | | + +--------+ + + as of this encounter Procedures [...] + + + in this encounter Results 12 LEAD ECG (09/01/2017 11:27 AM) + [...] | [facility] | [address] | [place], [place] | | | CARDIOLOGY | [address] | [address] | | + + + + + CULTURE, URINE JO-ANN (09/01/2017 11:13 AM) + + + + + | Component | Value | Ref Range | Performed At | + + + + + | URINE CULTURE [facility] | Insignificant growth | | [facility] | | | (<10,000 cfu/mL) | | [place] | + + + + + + + | Specimen | + + | Urine | + + + + + + + | Performing | Address | City/State/Zipcode | Phone Number | | Organization | | | | + + + + + | [facility] | [address] | [place] [address] | | | [place] | [address] | | | + + + + + CBC (HEMOGRAM) ONLY (09/01/2017 11:13 AM) + + + + + | Component | Value | Ref Range | Performed At | + + + + + | WHITE CELL COUNT | 8.81 | 3.50 - 10.80 K/cu mm | [facility] | | | | | SERVICES, CORE | + + + + + | RED CELL COUNT | 4.12 (L) | 4.50 - 6.00 M/cu mm | [facility] | | | | | SERVICES, CORE | + + + + + | HEMOGLOBIN | 9.6 (L) | 13.5 - 17.5 g/dL | [facility] | | | | | SERVICES, CORE | + + + + + | HEMATOCRIT | 32.2 (L) | 41.0 - 53.0 % | [facility] | | | | | SERVICES, CORE | + + + + + | MCV | 78.2 (L) | 80.0 - 100.0 fL | [facility] | | | | | SERVICES, CORE | + + + + + | MCHC | 29.8 (L) | 32.0 - 36.0 g/dL | [facility] | | | | | SERVICES, CORE | + + + + + | RDW SD | 47.8 (H) | 35.1 - 46.3 fL | [facility] | | | | | SERVICES, CORE | + + + + + | PLATELET COUNT | 452 (H) | 150 - 400 K/cu mm | [facility] | | | | | SERVICES, CORE | + + + + + | MPV | 10.6 | 9.7 - 12.3 fL | [facility] | | | | | SERVICES, CORE | + + + + + | NRBC% | 0.0 | 0.0 - 0.3 % | [facility] | | | | | SERVICES, CORE | + + + + + | NRBC# | 0.00 | 0.00 - 0.02 K/cu mm | [facility] | | | | | SERVICES, [...] | + + + + + | [facility] | [address] | [place] [address] | | | [place] | [address] | | | + + + + + ANTIBODY SCREEN (09/01/2017 11:13 AM) + + + + [...] [facility] | [address] | [place] [address] | | | SERVICES, | [address] | | | | TRANSFUSION MEDICINE | | | | + + + + + ABO & RH TYPE (09/01/2017 11:13 AM) + + + + [...] | + + + + + | [facility] | [address] | [place] [address] | | | SERVICES, | [address] | | | | TRANSFUSION MEDICINE | | | | + + + + + FRANCI ALCARAZ (09/01/2017 11:13 AM) + + + + + | Component | Value | Ref Range | Performed At | + + + + + | COLOR(UR) | Yellow | | [facility] | | | | | [place], CORE | + + + + + | APPEARANCE | Sl.Cloudy | | [facility] | | | [...] [place] | + + + + + | SPECIFIC GRAVITY | 1.012Comment: Specific | 1.005 - 1.030 | [facility] | | | [place] performed by | | [facility] [place] | [...] [facility] | [address] | [place] [address] | | | SERVICES, [place] | [address] | | | + + + + + URINE, MICROSCOPIC EXAM (09/01/2017 11:13 AM) + +---------+ + + | Component | Value | Ref Range | Performed At | + +---------+ + + | RED CELLS | 17 (H) | 0 - 3 /hpf | [facility] | | | [...] 0 | 0 - 2 /lpf | [facility] | | | | | SERVICES, CORE | + +---------+ + + | CELLULAR CASTS | 0 | <=0 /lpf | [facility] | | | | | SERVICES, CORE | + +---------+ + + | TRIPLE P04 CRYSTALS | None | None /hpf | [facility] | | | | | SERVICES, CORE | + +---------+ + + | CALCIUM OXALATE JEFFERSON | None | None /hpf | [facility] | | | | | SERVICES, CORE | + +---------+ + + | URIC ACID CRYSTALS | None | None /hpf | [facility] | | | | | SERVICES, CORE | + +---------+ + + | AMORPHOUS CRYSTALS | None | None /hpf | [facility] | | | | | SERVICES, CORE | + +---------+ + + + + | Specimen | + + | Urine | + + + + + + + | Performing | Address | City/State/Zipcode | Phone Number | | Organization | | | | + + + + + | [facility] | [address] | [place] [address] | | | SERVICES, [place] | [address] [...] | + + + + + | [facility] | [address] | [place] [address] | | | SERVICES, CORE | [address] [...] | [facility] | | considered for monitoring watcher automat long goods glycemic control in patients with: | LABORATORY [...] | + + + + + | [facility] | [address] | [place] [address] | | | SERVICES, SPECIAL | [address] | | | | IMM + [...] >60 mL/min | [facility] | | CYPRIOT | | | SERVICES, CORE | + +---------+ + + | EGFR NON | 55 (L) | >60 mL/min | [facility] | | -CYPRIOT | | | SERVICES, CORE | + +---------+ + + | SODIUM, PLASMA (LAB) | 135 (L) | 136 - 145 mmol/L | [facility] | | | | | SERVICES, CORE | + +---------+ + + | POTASSIUM, PLASMA | 4.6 | 3.4 - 5.0 mmol/L | [facility] | | (LAB) | | | [...] | | PLASMA (LAB) | | | [facility], CORE | + +---------+ + + | ALBUMIN, PLASMA | 3.6 | 3.5 - 4.7 g/dL | [facility] | | (LAB) | | | SERVICES, CORE | + +---------+ + + | ALK PHOS | 150 (H) | 56 - 119 U/L | [facility] | | | | | SERVICES, CORE | + +---------+ + + | AST(SGOT) | 10 | <=41 U/L | [facility] | | | | | SERVICES, CORE | + +---------+ + + | ALT (SGPT) | 14 | <=60 U/L | [facility] | | | | | SERVICES, [...] + + + + + | [facility] | [address] | [place] [address] | | | SERVICES, CORE | [address] | | | + + + + + in this encounter Visit Diagnoses + + | Diagnosis | + + | Preoperative examination - Primary | + + | Preoperative examination, unspecified | + + | Right renal mass | + + | Unspecified disorder of kidney and ureter | + + | Essential hypertension | + + | Type 2 diabetes mellitus with complication, with long-term current use of insulin (HCC) | + + | Gastroesophageal reflux disease, esophagitis presence not specified | + + | Cochlear implant in place | + + | Other postprocedural status | + +
--- OUTSIDE RECORDS SUMMARY | ~2017-11-22 | XMS | Encounter Summary ---
Demographics + + + | Address | [address] | | | [place] [address] | + + + | Home Phone | | + + + | Preferred Language | Unknown | + + + | Marital Status | | + + + | Roman Catholic Affiliation | LDS | + + + | Race | White | + + + | Ethnic Group | Not or | + + + Author + + + | Author | [facility] | + + + | Organization | [facility] | + + + | Address | Unknown | + + + | Phone | Unavailable | + + + Support + + + + + | Name | Relationship | Address | Phone | + + + + + | MILLY NGUYEN | ECON | [address] | | | | | [place], | | | | | [place] [address] | | + + + + + | Holly Burrell | ECON | Unknown | | + + + + + Care Team Providers + +------+ + | Care Medical Territory Manager Name | Role | Phone | + +------+ + | Jeremy Adrian MD | PCP | | + +------+ + Encounter Details +--------+ + + + + | Date | Type | Department | Care Team | Description | +--------+ + + + + | 08/23/ | Abstract | Urology at [facility] | Uro, Gen [address] | | | 2018 | | [address] | [address] [place] | | | | | Mail Code: CH10U | Road [place], [place] | | | | | [facility] | [address] | | | | | and [address], | | | | | | Floor [place], [place] | | | | | | [address] | | | | | | [phone] | | | +--------+ + + + [...] + + | 12/20/ | Diagnostic | Loss Prevention Research Engineer | Nils Woody, | | | 2018 | Visit | | [address] | | | | | | [address] | | | | | | [place] | | | | | | [address] | | | | | | | | +--------+ + + + + as of this encounter Visit Diagnoses Not on filein this encounter"
--- OUTSIDE RECORDS SUMMARY | ~2017-11-22 | XMS | Encounter Summary ---
Demographics + + + | Address | [address] | | | [place] [address] | + + + | Home Phone | | + + + | Preferred Language | Unknown | + + + | Marital Status | | + + + | Orthodoxy Affiliation | LDS | + + + [...] + | MILLY NGUYEN | ECON | [address] | | | | | [place], | | | | | [place] [address] | | + + + + + | Holly Burrell | ECON | Unknown | | + + + + + Care Team Providers + +------+ + | Care City Plant Supervisor Name | Role | Phone | + +------+ + | Jeremy Adrian MD | PCP | | + +------+ + Reason for Visit + + + | Reason | Comments | + + + | Pre-op evaluation | | + + + Encounter Details +--------+ + + + + | Date | Type | Department | Care Team | Description | +--------+ + + + + | 09/09/ | Telephone | Urology at [facility] | Cristy Rubin MD | Pre-op evaluation | | 2018 | | [address] | [address] | | | | | Mail Code: CH10U | [place], [place] | | | | | [facility] | [address] | | | | | and | [phone] | | | | | Floor [place], [place] | | | | | | [address] | | | | | | [phone] | | | +--------+ + + + [...] + + | 12/20/ | Diagnostic | Turfgrass Technician | Nils Woody, | | | 2017 | Visit | | [address] | | | | | | [address] | | | | | | [place] | | | | | | [id number] | | | | | | | | +--------+ + + + + as of this encounter Visit Diagnoses Not on filein this encounter"
--- OUTSIDE RECORDS SUMMARY | ~2017-11-22 | XMS | Encounter Summary ---
Demographics + + + | Address | [address] | | | [place] [address] | + + + | Home Phone | | + + + | Preferred Language | Unknown | + + + | Marital Status | | + + + | Mandaen Affiliation | LDS | + + + [...] + | MILLY NGUYEN | ECON | [address] | | | | | [place], | | | | | [place] [address] | | + + + + + | Holly Burrell | ECON | Unknown | | + + + + + Care Team Providers + +------+ + | Care General Claims Agent Name | Role | Phone | + [...] | | | | Tumor of | [address], | | | | | | right kidney | ,[facility] [address] | | | | | | with | [address] | | | | | | thrombus of | [address] | | | | | | IVC (HCC) | Rd | | | | | | Procedures | [place], [place] | | | | | | [facility] | [address] | | | | | | ABDOMINAL | Phone: | | | | | | DUPLEX LTD | [phone] | | | | | | [address] | Fax: | | | | | | | [phone] | | + +--------+ + + + + Encounter Details +--------+ + + + + | Date | Type | Department | Care Team | Description | +--------+ + + + + | 09/17/ | Miner Placer | Vascular Surgery | Azeem Eder Yepez, | 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2nd Floor | ,[facility]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[facility] [address]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) | | | | [address] | [place], [place] | (Primary Dx) | | | | Mailcode: OP11 | [address] | | | | | Physicians Mick | [phone] | | | | | [place], [place] | | | | | | [address] | | | | | | [phone] | | | +--------+ + + + [...] + + | 12/20/ | Diagnostic | Supervisor Painting Shipyard | Nils Woody, | | | 2017 | Visit | | Keyla [facility] [address] | | | | | | [address] [facility] | | | | | | [place], [place] | | | | | | [address] | | | | | | | | +--------+ + + + + as of this encounter Results [facility] ABDOMINAL DUPLEX LTD ARTERY VEIN (10/21/2017 [...] Note | + + | Service Account, RadiOcapi Res In Interface - 10/21/2017 2:39 PM [...]
--- OUTSIDE RECORDS SUMMARY | ~2017-11-22 | XMS | Encounter Summary ---
Demographics + + + | Address | [address] | | | [place] [address] | + + + | Home Phone | | + + + | Preferred Language | Unknown | + + + | Marital Status | | + + + | Worship Affiliation | Unknown | + + + | Race | Unknown | + + + | Ethnic Group | Unknown | + + + Author + + + | Author | [facility] | + + + | Organization | [facility] | + + + | Address | Unknown | + + + | Phone | Unavailable | + + + Support + + +---------+ + | Name | Relationship | Address | Phone | + + +---------+ + | Yuki Nguyen | ECON | Unknown | | + + +---------+ + Care Team Providers + +------+ + | Care Food Service Worker Hospital Name | Role | Phone | + [...] + + | 10/31/ | Telephone | [facility] | Nanda Vaughan | Oncology Nurse | | 2018 | | Hematology and | C, RN | Navigation | | | | Oncology [address] | | | | | | [address] | | | | | | [place] | | | | | | [address] | | | | | | [phone] | | | +--------+ + + + [...] [place] | | | | | | [address] | | | | | | | | +--------+---------+ + + + as of this encounter Visit Diagnoses Not on filein this encounter"
--- OUTSIDE RECORDS SUMMARY | ~2017-11-22 | XMS | Encounter Summary ---
Demographics + + + | Address | [address] | | | [place] [address] | + + + | Home Phone | | + + + | Preferred Language | Unknown | + + + | Marital Status | | + + + | Congregation Affiliation | Unknown | + + + | Race | Unknown | + + + | Ethnic Group | Unknown | + + + Author + + + | Author | [facility] | + + + | Organization | [facility] | + + + | Address | Unknown | + + + | Phone | Unavailable | + + + Support + + +---------+ + | Name | Relationship | Address | Phone | + + +---------+ + | Yuki Nguyen | ECON | Unknown | | + + +---------+ + Care Team Providers + +------+ + | Care Insurance Verification Rep Name | Role | Phone | + [...] + + | 10/06/ | Documentati | [facility] | Gabriella, | Other (C/N, LJossue | | 2018 | on Only | Hematology and | Stephanie Dubon MD | [facility] [place], | | | | Oncology [address] | [place] ) | | | | [address] | [place] | | | | | [place] | [address] | | | | | [address] | | | | | | [phone] | | | +--------+ + + + [...] [place] | | | | | | [address] | | | | | | | | +--------+---------+ + + + as of this encounter Visit Diagnoses Not on filein this encounter"
--- OUTSIDE RECORDS SUMMARY | ~2017-11-22 | XMS | Encounter Summary ---
Demographics + + + | Address | [address] | | | [place] [address] | + + + | Home Phone | | + + + | Preferred Language | Unknown | + + + | Marital Status | | + + + | Yazidi Affiliation | LDS | + + + [...] + | MILLY NGUYEN | ECON | [address] | | | | | [place], | | | | | [place] [address] | | + + + + + | Holly Otoole ECON | Unknown | | + + + + + Care Team Providers + +------+ + | Care Oven Roaster Name | Role | Phone | + +------+ + | Jeremy Adrian MD | PCP | | + +------+ + Encounter Details +--------+---------+ + + + | Date | Type | Department | Care Team | Description | +--------+---------+ + + + | 07/12/ | Office | Urology at [facility] | Alison Garcia | Renal cell carcinoma | | 2018 | Visit | [address] | [address] | of right kidney | | | | Mail Code: CH10U | [address] | (HCC) (Primary Dx) | | | | [place] [facility] | [place], [place] | | | | | and | [address] | | | | | Floor [place], [place] | [phone] | | | | | [address] | | | | | | [phone] | | | +--------+---------+ + + + [...] + + + | Blood Pressure | 126/69 | 10/06/2017 9:14 AM PDT | + + + + | Pulse | 73 | 10/06/2017 9:14 AM PDT | + + + + | Temperature | - | - | + + + + | Respiratory Rate | 16 | 10/06/2017 9:14 AM PDT | + + + + | Oxygen Saturation | 100% | 10/06/2017 9:14 AM PDT | + + + + | Inhaled Oxygen | - | - | | Concentration | | | + + + + | Weight | 65.8 kg (145 lb 1.6 | 10/06/2017 9:14 AM PDT | | | oz) | | + + + + | Height | 168.9 cm (5' 6.5") | 10/06/2017 9:14 AM PDT | + + + + | Body Mass Index | 23.07 | 10/06/2017 9:14 AM PDT | + [...] + as of this encounter Progress Notes Alison Garcia PA-C - 10/06/2017 9:30 AM PDTFormatting of this note may be different from the original. Urologic Oncology Clinic Follow up Visit Identification: 71 y.o. year old White male who is here for follow up of kidney cancer. The patient underwent open right radical nephrectomy and caval thrombectomy with retroperit beltran lymph node dissection with Dr. Rubin and excision and grafting of vena cava with Dr. Herman delarosa on 09/13/2017. Final pathology showed: 8.1 cm, WHO grade 3, clear cell renal cell carcinoma. [id number]. Patient is doing well. No longer requiring narcotic pain medications. Having bowel movement s. No fevers, nausea or vomiting. Still having difficulty with solid food getting stuck in his esophagus, which prevents him from eating a normal diet. This was present pre-op. Has not had much fluid intake this morning. The patient denies hematuria or flank pain. He had lung nodules and liver lesion seen on pre-op imaging. He was seen by medical oncology in [place], [place] (Dr. Quiroz) two days ago. He is yoko nning on starting oral medication soon, although they are trying to figure out which medicat ion he is able to take given his swallowing issues. Patient also has follow up with Dr. Mathews in vascular surgery at the end of September. Current Outpatient Prescriptions Medication Sig aspirin chewable 81 mg oral tablet,chewable Chew and swallow 1 tablet once daily. HYDROmorphone (DILAUDID) 1 mg/mL oral liquid Take 2-4 mL by mouth every four hours as n eeded. INVOKANA 100 mg oral tablet Take 1 tablet by mouth once daily. LANTUS SOLOSTAR 100 unit/mL (3 mL) subcutaneous insulin pen Inject 10 Units under the s kin (SUBC) once daily at bedtime. metFORMIN 500 mg oral tablet Take 1500 mg by mouth every morning and 1000 mg by mouth e very evening oxyCODONE (immediate release) 5 mg/5 mL oral solution Take 2.5-5 mL by mouth every six hours as needed. pantoprazole 40 mg oral tablet,delayed release (DR/EC) Take 40 mg by mouth once daily a s needed. senna-docusate (SENNA-S) 8.6-50 mg oral tablet Take 1 tablet by mouth two times daily. simvastatin 40 mg oral tablet Take 40 mg by mouth once daily in the evening. sitaGLIPtin (JANUVIA) 100 mg oral tablet Take 100 mg by mouth once daily. valsartan-hydrochlorothiazide 160-12.5 mg oral tablet Take 1 tablet by mouth once daily . No current facility-administered medications for this visit. PHYSICAL EXAM: BP 126/69 | Pulse 73 | RR 16 | Ht 1.689 m (5' 6.5") | Wt 65.8 kg (145 lb 1.6 oz) | SpO2 100 % | BMI 23.07 kg/(m^2) GEN: thin appearing, in NAD PSYCH: alert and oriented, affect appropriate SKIN: pink, warm and dry ABDOM: soft, NT/ND, incision healing well without signs of infection BACK: no CVA tenderness EXTREM: No edema NEURO: Non-focal. LABS: Lab Results Component Value Date WBC 6.09 10/06/2017 HCT 31.7 (L) 10/06/2017 PLT 451 (H) 10/06/2017 Lab Results Component Value Date NA 137 10/06/2017 K 5.2 (H) 10/06/2017 CL 101 10/06/2017 BICARB 26 10/06/2017 BUN 20 10/06/2017 CR 1.40 (H) 10/06/2017 GLU 81 10/06/2017 CA 9.8 10/06/2017 AST 17 10/06/2017 ALT 15 10/06/2017 AP 89 10/06/2017 TBILI 0.6 10/06/2017 TP 8.2 (H) 10/06/2017 ALB 3.6 10/06/2017 Assessment: Clear cell renal cell carcinoma of the kidney, after open right radical nephrectomy and cav al thrombectomy with retroperitoneal lymph node dissection and excision and grafting of vena cava on 09/13/2017. Pathology discussed with the patient and his son today. He also has concern for metastatic disease with liver lesion and lung nodules noted on pre-op imaging. Patient has already se en medical oncology, and will follow up with them regarding treatment. Discussed that his d isease is not curable, but potentially treatable. Creatinine and potassium are slightly elevated today. Recommend patient increase hydration , and recheck BMP locally tomorrow. Patient prefers to follow up locally. Since he has evidence of metastatic disease and will be undergoing treatment, imaging, and labs with medical oncology, recommend he follow up wit h them. Will see him back as needed. Plan: 1. Recheck BMP tomorrow - [facility] in [place], [place] 2. Follow up with medical oncology for treatment of liver and lung lesions. 3. Return as needed. Alison Garcia PA-C Physician Nurse Epidemiologist Department of Urology [facility] [place] in this encounter Plan of Treatment +--------+ + + + + | Date | Type | Specialty | Care Team | Description | +--------+ + + + + | 12/20/ | Diagnostic | Brown Stock Washer | Nils Woody, | | | 2018 | Visit | | Keyla [facility] [address] | | | | | | SAR[address] [facility] | | | | | | [place], [place] | | | | | | [address] | | | | | | | | +--------+ + + + + + +--------+ + + | Name | Priori | Associated Diagnoses | Order Schedule | | | ty | | | + +--------+ + + | BASIC METABOLIC SET (NA, K, CL, | Routin | Renal cell | Expected: 10/06/2017 | | TCO2, BUN, CR, GLU, CA) | e | carcinoma of right | (Approximate), | | | | kidney (HCC) | Expires: 11/06/2018 | + +--------+ + + as of this encounter Visit Diagnoses + + | Diagnosis | + + | Renal cell carcinoma of right kidney (HCC) - Primary | + +
--- OUTSIDE RECORDS SUMMARY | ~2017-11-22 | XMS | Encounter Summary ---
Demographics + + + | Address | [address] | | | [place] [address] | + + + | Home Phone | | + + + | Preferred Language | Unknown | + + + | Marital Status | | + + + | Samaritan Affiliation | LDS | + + + [...] + | MILLY NGUYEN | ECON | [address] | | | | | [place], | | | | | [place] [address] | | + + + + + | Holly Burrell | ECON | Unknown | | + + + + + Care Team Providers + +------+ + | Care Studio Owner Name | Role | Phone | + [...] | Malignant | Jeremy Maynard, | Oncology [facility] | | | | | neoplasm of [...] | | | | | | [place] [address] | [place], [place] | | | | | | Phone: | [address] | | | | | | [phone] | Phone: | | | | | | Fax: | [phone] | | | | | | [phone] | Fax: | | | | | | | [phone] | +--------+--------+ + + + + Encounter Details +--------+---------+ + + + | Date | Type | Department | Care Team | Description | +--------+---------+ + + + | 09/01/ | Office | Urology at [facility] | Rn, [address] | Renal cell carcinoma | | 2018 | Visit | [address] | [address] [place] | of right kidney | | | | Mail Code: CH10U | Road [facility] [place] | (HCC) (Primary Dx) | | | | [facility] | [address] | | | | | and Healing, | | | | | | Floor [place], [place] | | | | | | [address] | | | | | | [phone] | | | +--------+---------+ + + + [...] of this diet are: Water, Valentina beatrice, [place] soft drinks, Apple juice, Tea or c [...] your [facility] ([facility] provider at [phone] to see if you need to take [...] speak to the Urology Resident who is validation leader.in this encounter Progress Notes Madi Fleming RN [...] + + | 12/20/ | Diagnostic | Chip Machine Operator | Nils Woody, | | | 2017 | Visit | | [address] | | | | | | SARAH [facility] | | | | | | [place], [place] | | | | | | [address] | | | | | | | | +--------+ + + + + as of this encounter Visit Diagnoses + + | Diagnosis | + + | Renal cell carcinoma of right kidney (HCC) - Primary | + +
--- OUTSIDE RECORDS SUMMARY | ~2017-11-22 | XMS | Encounter Summary ---
Demographics + + + | Address | [address] | | | [place] [address] | + + + | Home Phone | | + + + | Preferred Language | Unknown | + + + | Marital Status | | + + + | Taoism Affiliation | LDS | + + + | Race | White | + + + | Ethnic Group | Not or | + + + Author + + + | Author | [facility] | + + + | Organization | [facility] | + + + | Address | Unknown | + + + | Phone | Unavailable | + + + Support + + + + + | Name | Relationship | Address | Phone | + + + + + | MILLY NGUYEN | ECON | [address] | | | | | [place], | | | | | [place] [address] | | + + + + + | Holly Burrell | ECON | Unknown | | + + + + + Care Team Providers + +------+ + | Care Pig Conveyor Operator Name | Role | Phone | + +------+ + | Jeremy Adrian MD | PCP | | + +------+ + Encounter Details +--------+ + + + + | Date | Type | Department | Care Team | Description | +--------+ + + + + | 08/23/ | Senior Applications Engineer | Urology at [facility] | Alison Garcia | Renal mass, right | | 2018 | | [address] | [address] | (Primary Dx) | | | | Mail Code: CH10U | [address] | | | | | [facility] | [place], [place] | | | | | and , | [address] | | | | | Floor [place], [place] | [phone] | | | | | [address] | | | | | | [phone] | | | +--------+ + + + [...] + + | 12/20/ | Diagnostic | Aed Trainer | Nils Woody, | | | 2017 | Visit | | [address]RETCHEN [address] | | | | | | [address] [facility] | | | | | | Rd [place], [place] | | | | | | [address] | | | | | | | | +--------+ + + + + as of this encounter Results OUTSIDE BODY - READ REQUEST (08/19/2017) + + + | Narrative | Performed At | + + + | EXAM: Professional interpretation only of CT of the chest, | [facility] | | abdomen, and pelvis. DATE OF INTERPRETATION REQUEST: 08/23/2017. | RADIOLOGY VOICE | | DATE OF IMAGE ACQUISITION: 08/19/2017. HISTORY: Large right renal | RECOGNITION 2 | | mass with caval thrombus; assess for extent of disease COMPARISON: | | | None available. TECHNIQUE: CT of the chest, abdomen, and pelvis | | | after intravenous and oral administration of contrast. Number of | | | images: 757 FINDINGS: THORAX: 3.4 cm left thyroid lobe | | | heterogeneously hypoenhancing nodule is noted. No thoracic adenopathy. | | | No pleural or pericardial effusions. Diffuse esophageal thickening | | | suggestive of esophagitis. Scattered pulmonary nodules throughout | | | the lungs are suspicious for metastases. Index nodules are as follows: | | | Left lower lobe (image 60): 11 mm. Left lower lobe (image 63): 14 x | | | 14 mm. This is heterogeneously enhancing and pleural-based. Right | | | upper lobe (image 31): 6 mm. Groundglass opacity in the right | | | lower lobe may be postinfectious in etiology (image 62). Less | | | opacity in the left upper lobe (image 45) measures 13 mm and exhibits | | | a solid component, possibly representing adenocarcinoma in situ. | | | LIVER: Unremarkable. BILIARY: Multiple stones layer within the | | | gallbladder. PANCREAS: The pancreas is diffusely atrophic. No ductal | | | dilatation is noted. Single pancreatic body calcification is 5 mm, | | | raising the possibility of chronic pancreatitis. SPLEEN: No | | | splenomegaly. ADRENALS: The right adrenal gland is not visualized. | | | The left adrenal gland is unremarkable.. KIDNEYS/URETERS: The left | | | kidney is unremarkable. Heterogeneously enhancing right renal mass | | | is noted as follows: Radius: 9.0 x 7.1 x 8.1 cm (axial 118, coronal | | | 75). Exophytic by less than 50%. Nearness to the collecting system: | | | <4 mm. This lesion likely involves the upper renal collecting system | | | and causes partial obstruction. Location: Posterior. This mass | | | straddles the polar lines. Tumor thrombus fills the right renal | | | vein, but resolves caudal to the intrahepatic IVC. Perinephric | | | neovascularity is noted. PELVIC ORGANS: Sessile lobulated | | | posterior bladder wall mass measures 6.0 x 3.8 cm (image 190). GI | | | TRACT: Unremarkable. PERITONEUM: No free air or fluid. LYMPH | | | NODES: No lymphadenopathy. VESSELS: As above. BONES AND SOFT | | | TISSUES: Multiple chronic /partially healed rib fractures are noted. | | | No suspicious osseous lesions. IMPRESSION: Renal cell | | | carcinoma as described above with tumor thrombus extending to just | | | inferior to the liver. The renal cell carcinoma likely invades the | | | upper collecting system. In addition, the sessile mass within the | | | urinary bladder may represent extension of disease rather than primary | | | bladder cancer. Multiple pulmonary nodules are suspicious for | | | metastases. A few of the pulmonary metastases appear inflammatory, | | | while others may represent adenocarcinoma in situ. I have | | | personally reviewed the images and, if necessary, edited the report. I | | | agree with the report as now presented. Final signature: Diane Ram | | | MD Sebastien 08/24/2017 2:15 PM Preliminary: Diane Crowe MD | | + + + + + | Procedure Note | + + | Service Account, [employer] Res In Interface - 08/24/2017 2:16 PM PDT EXAM: | | Professional interpretation only of CT of the chest, abdomen, and pelvis. DATE OF | | INTERPRETATION REQUEST: 08/23/2017.DATE OF IMAGE ACQUISITION: 08/19/2017. HISTORY: Large | | right renal mass with caval thrombus; assess for extent of disease COMPARISON: None | | available. TECHNIQUE: CT of the chest, abdomen, and pelvis after intravenous and oral | | administration of contrast.Number of images: 757 FINDINGS: THORAX: 3.4 cm left thyroid | | lobe heterogeneously hypoenhancing nodule is noted. No thoracic adenopathy. No pleural | | or pericardial effusions. Diffuse esophageal thickening suggestive of esophagitis. | | Scattered pulmonary nodules throughout the lungs are suspicious for metastases. Index | | nodules are as follows:Left lower lobe (image 60): 11 mm.Left lower lobe (image 63): 14 | | x 14 mm. This is heterogeneously enhancing and pleural-based.Right upper lobe (image | | 31): 6 mm. Groundglass opacity in the right lower lobe may be postinfectious in etiology | | (image 62). Less opacity in the left upper lobe (image 45) measures 13 mm and exhibits | | a solid component, possibly representing adenocarcinoma in situ. LIVER: | | Unremarkable.BILIARY: Multiple stones layer within the gallbladder.PANCREAS: The | | pancreas is diffusely atrophic. No ductal dilatation is noted. Single pancreatic body | | calcification is 5 mm, raising the possibility of chronic pancreatitis.SPLEEN: No | | splenomegaly. ADRENALS: The right adrenal gland is not visualized. The left adrenal | | gland is unremarkable..KIDNEYS/URETERS: The left kidney is unremarkable. Heterogeneously | | enhancing right renal mass is noted as follows:Radius: 9.0 x 7.1 x 8.1 cm (axial 118, | | coronal 75).Exophytic by less than 50%.Nearness to the collecting system: <4 mm. This | | lesion likely involves the upper renal collecting system and causes partial | | obstruction.Location: Posterior. This mass straddles the polar lines. Tumor thrombus | | fills the right renal vein, but resolves caudal to the intrahepatic IVC. Perinephric | | neovascularity is noted. PELVIC ORGANS: Sessile lobulated posterior bladder wall mass | | measures 6.0 x 3.8 cm (image 190).GI TRACT: Unremarkable.PERITONEUM: No free air or | | fluid. LYMPH NODES: No lymphadenopathy. VESSELS: As above. BONES AND SOFT TISSUES: | | Multiple chronic /partially healed rib fractures are noted. No suspicious osseous | | lesions. IMPRESSION: Renal cell carcinoma as described above with tumor thrombus | | extending to just inferior to the liver. The renal cell carcinoma likely invades the | | upper collecting system. In addition, the sessile mass within the urinary bladder may | | represent extension of disease rather than primary bladder cancer. Multiple pulmonary | | nodules are suspicious for metastases. A few of the pulmonary metastases appear | | inflammatory, while others may represent adenocarcinoma in situ. I have personally | | reviewed the images and, if necessary, edited the report. I agree with the report as now | | presented. Final signature: Diane Crowe MD 08/24/2017 2:15 PM Preliminary: Diane Ram | | MD Sebastien | |Location: Posterior. This mass straddles the polar lines. | | | |Tumor thrombus fills the right renal vein, but resolves caudal to the intrahepatic IVC. Per inephric neovascularity is noted. | | | |PELVIC ORGANS: Sessile lobulated posterior bladder wall mass measures 6.0 x 3.8 cm (image 1 90). | |GI TRACT: Unremarkable. | |PERITONEUM: No free air or fluid. | | | |LYMPH NODES: No lymphadenopathy. | | | |VESSELS: As above. | | | |BONES AND SOFT TISSUES: Multiple chronic /partially healed rib fractures are noted. No susp icious osseous lesions. | | | |IMPRESSION: | | | |Renal cell carcinoma as described above with tumor thrombus extending to just inferior to t he liver. | | | |The renal cell carcinoma likely invades the upper collecting system. In addition, the sessi le mass within the urinary bladder may represent extension of disease rather than primary bl adder cancer. | | | |Multiple pulmonary nodules are suspicious for metastases. A few of the pulmonary metastases appear inflammatory, while others may represent adenocarcinoma in situ. | | | |I have personally reviewed the images and, if necessary, edited the report. I agree with pilo report as now presented. | | | |Final signature: Diane Crowe MD 08/24/2017 2:15 PM | |Preliminary: Diane Crowe MD | + + + +---------+ + + | Performing | Address | City/State/Zipcode | Phone Number | | Organization | | | | + +---------+ + + | [facility] | | | | | VOICE RECOGNITION 2 | | | | + +---------+ + + in this encounter Visit Diagnoses + + | Diagnosis | + + | Renal mass, right - Primary | + + | Unspecified disorder of kidney and ureter | + +"
--- OUTSIDE RECORDS SUMMARY | ~2017-11-22 | XMS | Clinical Summary ---
Demographics + + + | Address | [address] | | | [place] [address] | + + + | Home Phone | | + + + | Preferred Language | Unknown | + + + | Marital Status | | + + + | Christian Affiliation | Unknown | + + + | Race | Unknown | + + + | Ethnic Group | Unknown | + + + Author + + + | Author | [facility] | + + + | Organization | [facility] | + + + | Address | Unknown | + + + | Phone | Unavailable | + + + Support + + +---------+ + | Name | Relationship | Address | Phone | + + +---------+ + | Yuki Nguyen | ECON | Unknown | | + + +---------+ + Care Team Providers + +------+ + | Care Search Engine Optimization Strategist Name | Role | Phone | + [...] | | | | | | right ([facility]) | | | | | [...] | | | | | | right ([facility]) | | | | | [...] | | | 2017 | | | LAND MANAGER | | +--------+ + + + + [...] + | 10/12/ | Documentati | | [facility] | Medication Refill | | 2017 [...] [place] | | | | | | [address] | | | | | | | [...] | COLOR UA | COLORLESS | | Postcron | + + + + + | CLARITY | CLEAR | | [facility] | + + + + + | Specific [place], UA | 1.006 | 1.002 - 1.030 | [facility] | + + + + + [...] KETONES | NEGATIVE | NEGATIVE mg/dL | [facility] | + + + + + | BILIRUBIN | NEGATIVE | NEGATIVE | [facility] | + + + + + | GLUCOSE | >500 (A)Comment: Testing | NEGATIVE mg/dL | [facility] | | | performed at [facility];[address] | | | | | [address];[place] | | | | | [address] | | | + + + + + + + | Specimen | + + | Urine, Clean Catch | + + + + + + + | Performing | Address | City/State/Zipcode | Phone Number | | Organization | | | | + + + + + | [facility] | [address] | [place] [address] | | + + + + + aPTT (10/31/2017 6:33 PM) + + + + + | Component | Value | Ref Range | Performed At | + + + + + | APTT | 30Comment: Testing | 23 - 32 seconds | [facility] | | | performed at [facility];[address] | | | | | [address];[place] | | | | | [address] | | | + + + + + + + | Specimen | + + | Blood | + + + + + + + | Performing | Address | City/State/Zipcode | Phone Number | | Organization | | | | + + + + + | [facility] | [address] | [place] [address] | | + + + + + Protime (10/31/2017 6:33 PM) + + + + + | Component | Value | Ref Range | Performed At | + + + + + | INR | 1.0Comment: REFERENCE | | [facility] | | | RANGE:0.9 - [...] | | | | | performed at [facility] | | | | | [address];[place], [place] | | | | | [address] | | | + + + + + + + | Specimen | + + | Blood | + + + + + + + | Performing | Address | City/State/Zipcode | Phone Number | | Organization | | | | + + + + + | [facility] | [address] | [place] [address] | | + + + + + CBC with differential (10/31/2017 6:33 PM) + + + + + | Component | Value | Ref Range | Performed At | + + + + + | WBC | 7.10 | 3.80 - 11.00 K/uL | [facility] | + + + + + | RBC | 4.50 | 4.20 - 5.70 M/uL | [facility] | + + + + + [...] 48.1 | 37 - 53 fl | [facility] | + + + + + | PLT | 383 | 150 - 400 K/uL | [facility] | + + + + + | MPV | 9.0 | fl | [facility] | + + + + + | DIFF TYPE | AUTOMATED | | [facility] | + + + + + | NEUTROPHILS | 62.52 | % | [facility] | + + + + + [...] + | MORPHOLOGY | 1+ | | [facility] | | | Comment: | [...] | Platelet Estimate | ADEQUATE | | [facility] | + + + + + | Diff Comment | SLIDE SCANNED, AGREES | | [facility] | | | WITH AUTOMATED | | | | | RESULTS.Comment: Testing | | | | | performed at [facility];[address] | | | | | [address];[place], [place] | | | | | [address] | | | + + + + + + + | Specimen | + + | Blood | + + + + + + + | Performing | Address | City/State/Zipcode | Phone Number | | Organization | | | | + + + + + | [facility] | [address] | [place] [address] | | + + + + + Magnesium (10/31/2017 6:33 PM) + + + + + | Component | Value | Ref Range | Performed At | + + + + + | MAGNESIUM | 2.5 (H)Comment: Testing | 1.7 - 2.4 mg/dL | [facility] | | | performed at [facility];[address] | | | | [address];[place] | | | | | [address] | | | + + + + + + + | Specimen | + + | Blood | + + + + + + + | Performing | Address | City/State/Zipcode | Phone Number | | Organization | | | | + + + + + | [facility] | [address] | [place] [address] | | + + + + + Lipase (10/31/2017 6:33 PM) + + + + + | Component | Value | Ref Range | Performed At | + + + + + | LIPASE | 146Comment: Testing | 73 - 393 U/L | [facility] | | | performed at [facility];[address] | | | | | [address];[place] | | | | | [address] | | | + + + + + + + | Specimen | + + | Blood | + + + + + + + | Performing | Address | City/State/Zipcode | Phone Number | | Organization | | | | + + + + + | [facility] | [address] | [place] [address] | | + + + + + Comprehensive metabolic panel (10/31/2017 6:33 PM) + + + + + | Component | Value | Ref Range | Performed At | + + + + + | SODIUM | 139 | 135 - 145 mmol/L | [facility] | + + + + + | POTASSIUM | 4.2 | 3.5 - 4.9 mmol/L | [facility] | + + + + + | CHLORIDE | 104 | 99 - 109 mmol/L | [facility] | + + + + + | CO2 | 28 | 23 - 32 mmol/L | [facility] | + + + + + | ANION GAP AGAP | 12 | 5 - 20 mmol/L | [facility] | + + + + + | GLUCOSE | 128 (H) | 65 - 99 mg/dL | [facility] | + + + + + | BUN | 23 | 8 - 25 mg/dL | [facility] | + + + + + | CREATININE | 1.3 | 0.70 - 1.30 mg/dL | [facility] | + + + + + | BUN/CREAT | 18 | | [facility] | + + + + + | CALCIUM | 9.3 | 8.5 - 10.5 mg/dL | [facility] | + + + + + | TOTAL PROTEIN | 8.7 (H) | 6.3 - 8.2 g/dL | [facility] | + + + + + | Albumin | 3.8 | 3.3 - 4.8 g/dL | [facility] | + + + + + | GLOBULIN | 5.0 (H) | 1.3 - 4.9 g/dL | [facility] | + + + + + | A/G | 0.8 (L) | 1.0 - 2.4 | [facility] | + + + + + | TBIL | 0.3 | 0.1 - 1.5 mg/dL | [facility] | + + + + + | ALK PHOS | 123 (H) | 35 - 115 U/L | [facility] | + + + + + | AST | 11 | 10 - 45 U/L | [facility] | + + + + + | ALT | 16 | 10 - 65 U/L | [facility] | + + + + + | EGFR | 54 (L)Comment: GFR <60: | >60 mL/min/1.73m2 | [facility] | | | CHRONIC KIDNEY [...] the | | | | | MDRD [facility] traceable | | | | | equation.Testing | | | | | performed at [facility];[address] | | | | | [facility];[place], [place] | | | | | [address] | | | + + + + + + + | Specimen | + + | Blood | + + + + + + + | Performing | Address | City/State/Zipcode | Phone Number | | Organization | | | | + + + + + | [facility] | [address] | [place] [address] | | + + + + + from Last 3 Months Insurance +---------+--------+ +------+-------+ + | Payer | Benefi | Subscriber | Type | Phone | Address | | | t Plan | ID | | | | | | / | | | | | | | Group | | | | | +---------+--------+ +------+-------+ + | PREMERA | PREMER | [id number] | | | [address] [address] | | | A BLUE | 7 | | | [place], [place] | | | CARD | | | | [address] | +---------+--------+ +------+-------+ + + +--------+ +--------+ [...] | | | [address] | | | [phone] | [address] | + +--------+ +--------+ + +
--- OUTSIDE RECORDS SUMMARY | ~2017-11-22 | XMS | Encounter Summary ---
Demographics + + + | Address | [address] | | | [place] [address] | + + + | Home Phone [...] + | MILLY NGUYEN | ECON | [address] | | | | | [place], | | | | | [place] [address] | | + + + + + | Holly Burrell | ECON | Unknown | | + + + + + Care Team Providers + +------+ + | Care Residential Mental Health Worker Name | Role | Phone | [...] | | | | CT ABDOMEN | [facility], [place] | [facility] | | | | | [place] | [address] | for Health | | | | | [place] | Phone: | and Healing, | | | | | CT SCAN OF | [phone] | 3rd Floor | | | | | ABDOMEN | Fax: | [place], [place] | | | | | [place] | [phone] | [address] | | | | | | | Phone: | | | | | | | [phone] | | | | | | | Fax: | | | | | | | [phone] | +--------+--------+ + + + + Diagnostic [...] | | | | CT ABDOMEN | [place], [place] | [address] | | | | | [place] | [address] | for Health | | | | | [place] | Phone: | and Healing, | | | | | CT SCAN OF | [phone] | 3rd Floor | | | | | ABDOMEN | Fax: | [place], [place] | | | | | [place] | [phone] | [address] | | | | | | | Phone: | | | | | | | [phone] | | | | | | | Fax: | | | | | | | [phone] | +--------+--------+ + + + + Reason for Visit Diagnostic Testing (Routine) +--------+--------+ + + + + | Status | Reason | Specialty | Diagnoses / | Referred By | Referred To | | | | | Procedures | Contact | Contact | +--------+--------+ + + + + | Closed | | Radiology | Diagnoses | Cristy Rbuin | Rad Ct Scan | | | | | Right renal | MD Devika | [address] | | | | | mass | [address] | [address] | | | | | Procedures | Ave | Mailcode: | | | | | CT ABDOMEN | [facility], [place] | [facility] | | | | | [place] | [address] | for Health | | | | | [place] | Phone: | and Healing, | | | | | CT SCAN OF | [phone] | 3rd Floor | | | | | ABDOMEN | Fax: | [place], [place] | | | | | [place] | [phone] | [address] | | | | | | | Phone: | | | | | | | [phone] | | | | | | | Fax: | | | | | | | [phone] | +--------+--------+ + + + + Encounter Details +--------+ + + + + | Date | Type | Department | Care Team | Description | +--------+ + + + + | 08/31/ | Hospital | Radiology/Imaging | Cristy Rubin MD | | | 2018 | Encounter | Lab at [facility] [address] | [address] | | | | | [address] | [place], [place] | | | | | Mailcode: [facility] | [address] | | | | | [facility] | [phone] | | | | | and Healing, [facility] | | | | | | Floor [place], [place] | | | | | | [address] | | | | | | [phone] | | | +--------+ + + + [...] + + | 12/20/ | Diagnostic | Locomotive Repairer Diesel | Nils Woody, | | | 2018 | Visit | | Keyla [facility] [address] | | | | | | [address] | | | | | | [place], [place] | | | | | | [address] | | | | | | | [...] | [facility] | [address] [facility] | [place] [address] | | | OF CARE TESTS | [...]
--- OUTSIDE RECORDS SUMMARY | ~2017-11-22 | XMS | Encounter Summary ---
Demographics + + + | Address | [address] | | | [place] [address] | + + + | Home Phone | | + + + | Preferred Language | Unknown | + + + | Marital Status | | + + + | Moravian Affiliation | LDS | + + + [...] + | MILLY NGUYEN | ECON | [address] | | | | | [place], | | | | | [place] [address] | | + + + + + | Holly Burrell | ECON | Unknown | | + + + + + Care Team Providers + +------+ + | Care Mineral Ore Processing Labourer Name | Role | Phone | + [...] | 10/13/ | Telephone | Urology at [facility] | Alison Garcia | Lab Results | | 2017 | | [address] | [employer] [address] | | | | | Mail Code: CH10U | [address] | | | | | [facility] | [place], [place] | | | | | and | [address] | | | | | Floor [place], [place] | [phone] | | | | | [address] | | | | | | [phone] | | | +--------+ + + + [...] + + | 12/20/ | Diagnostic | Lopper | Nils Woody, | | | 2018 | Visit | | Keyla [facility] [address] | | | | | | [address] | | | | | | [place], [place] | | | | | | [address] | | | | | | | [...] | 65 - 110 mg/dL | NON [facility] | | (LAB) | | | [...]
--- OUTSIDE RECORDS SUMMARY | ~2017-11-22 | XMS | Encounter Summary ---
Demographics + + + | Address | [address] | | | [place] [address] | + + + | Home Phone | | + + + | Preferred Language | Unknown | + + + | Marital Status | | + + + | Anabaptist Affiliation | Unknown | + + + | Race | Unknown | + + + | Ethnic Group | Unknown | + + + Author + + + | Author | [facility] | + + + | Organization | [facility] | + + + | Address | Unknown | + + + | Phone | Unavailable | + + + Support + + +---------+ + | Name | Relationship | Address | Phone | + + +---------+ + | Yuki Nguyen | ECON | Unknown | | + + +---------+ + Care Team Providers + +------+ + | Care Precision Farming Coordinator Name | Role | Phone | + [...] + + | 10/12/ | Documentati | [facility] | Marc Chinchilla | Medication Refill | | 2018 | on Only | Hematology and | | (Sunitinib; Oral | | | | Oncology [address] | | chemo - New ) | | | | [address] | | | | | | [place] | | | | | | [address] | | | | | | [phone] | | | +--------+ + + + [...] back. Provided alternate ph one number from [facility]. Stephie will try that number Mayda [...] She verba lized understanding. Pt educated on chemist instrumentation role, phone number given.Marc Chinchilla - 10/12/2017 11:34 AM PD TSunitinib approved by insurance, expires 10/11/18. Script faxed to [facility] specialty pha [facility] per insurance mandate in this encounter Plan of Treatment +--------+---------+ + + + | Date | Type | Specialty | Care Team | Description | +--------+---------+ + + + | 12/21/ | Office | Hematology and | Gabriella, | | | 2017 | Visit | Oncology | Stephanie Dubon MD | | | | | | [address] | | | | | | [place] | | | | | | [address] | | | | | | | | +--------+---------+ + + + as of this encounter Visit Diagnoses Not on filein this encounter
--- OUTSIDE RECORDS SUMMARY | ~2017-11-22 | XMS | Encounter Summary ---
Demographics + + + | Address | [address] | | | [place] [address] | + + + | Home Phone | | + + + | Preferred Language | Unknown | + + + | Marital Status | | + + + | Zoroastrian Affiliation | LDS | + + + | Race | White | + + + | Ethnic Group | Not or | + + + Author + + + | Author | [facility] | + + + | Organization | [facility] | + + + | Address | Unknown | + + + | Phone | Unavailable | + + + Support + + + + + | Name | Relationship | Address | Phone | + + + + + | MLILY NGUYEN | ECON | [address] | | | | | [place], | | | | | [place] [address] | | + + + + + | Holly Burrell | ECON | Unknown | | + + + + + Care Team Providers + +------+ + | Care Physical Science Teacher Name | Role | Phone | [...] | consultation | | | | [facility] | [address] [place], | | | | | [facility] Mailcode: [facility] | [place] [address] | | | | | [place], [place] | | | | | | [address] | | | | | | [phone] | | | +--------+ + + + [...] + + | 12/20/ | Diagnostic | Brand Strategy Manager | Nils Woody, | | | 2017 | Visit | | [address] | | | | | | [address] | | | | | | [place], [place] | | | | | | [address] | | | | | | | | +--------+ + + + + as of this encounter Visit Diagnoses Not on filein this encounter"
--- OUTSIDE RECORDS SUMMARY | ~2017-11-22 | XMS | Encounter Summary ---
Demographics + + + | Address | [address] | | | [place] [address] | + + + | Home Phone | | + + + | Preferred Language | Unknown | + + + | Marital Status | | + + + | Rastafarian Affiliation | Unknown | + + + | Race | Unknown | + + + | Ethnic Group | Unknown | + + + Author + + + | Author | [facility] | + + + | Organization | [facility] | + + + | Address | Unknown | + + + | Phone | Unavailable | + + + Support + + +---------+ + | Name | Relationship | Address | Phone | + + +---------+ + | Yuki Nguyen | ECON | Unknown | | + + +---------+ + Care Team Providers + +------+ + | Care Commercial Loan Manager Name | Role | Phone | + +------+ + | Jeremy Adrian MD | PCP | | + +------+ + Encounter Details +--------+ + + + + | Date | Type | Department | Care Team | Description | +--------+ + + + + | 11/17/ | Telephone | [facility] | Gracie Brooks MA | | | 2018 | | Hematology and | | | | | | Oncology [address] | | | | | | [address] | | | | | | [place] | | | | | | [address] | | | | | | [phone] | | | +--------+ + + + [...] [place] | | | | | | [address] | | | | | | | | +--------+---------+ + + + as of this encounter Visit Diagnoses Not on filein this encounter"
--- OUTSIDE RECORDS SUMMARY | ~2017-11-22 | XMS | Encounter Summary ---
Demographics + + + | Address | [address] | | | [place] [address] | + + + | Home Phone [...] + + + | Author | [facility] | + + + | Organization | [facility] | + + + | Address | Unknown | + + + | Phone | Unavailable | + + + Support + + + + + | Name | Relationship | Address | Phone | + + + + + | MILLY NGUYEN | ECON | [address] | | | | | [place], | | | | | [place] [address] | | + + + + + | Holly Otoole ECON | Unknown | | + + + + + Care Team Providers + +------+ + | Care Outdoor Emergency Care Technician Name | Role | Phone | + +------+ + | Jeremy Adrian MD | PCP | | + +------+ + Encounter Details +--------+ + + + + | Date | Type | Department | Care Team | Description | +--------+ + + + + | 08/25/ | 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 | [facility] | Alison Garcia | Renal mass (Primary | | 2018 | | [address] | [employer] [address] | Dx); Bladder mass | | | | Mail Code: CH10U | [address] | | | | | [facility] | [place], [place] | | | | | and | [address] | | | | | Floor [place], [place] | [phone] | | | | | [address] | | | | | | [phone] | | | +--------+ + + + [...] + + | 12/20/ | Diagnostic | Clinical Data Manager | Nils Woody, | | | 2017 | Visit | | [address] | | | | | | [address] [facility] | | | | | | [place], [place] | | | | | | [address] | | | | | | | | +--------+ + + + + as of this encounter Results US KIDNEY & BLADDER (08/31/2017 3:43 PM) [...] Note | + + | Service Account, [employer] In Interface - 08/31/2017 5:20 PM [...] kidney and ureter | + + | Bladder mass | + + | Other specified disorders of bladder | + +"
--- OUTSIDE RECORDS SUMMARY | ~2017-11-22 | XMS | Encounter Summary ---
Demographics + + + | Address | [address] | | | [place] [address] | + + + | Home Phone | | + + + | Preferred Language | Unknown | + + + | Marital Status | | + + + | Church Affiliation | Unknown | + + + | Race | Unknown | + + + | Ethnic Group | Unknown | + + + Author + + + | Author | [facility] | + + + | Organization | [facility] | + + + | Address | Unknown | + + + | Phone | Unavailable | + + + Support + + +---------+ + | Name | Relationship | Address | Phone | + + +---------+ + | Yuki Nguyen | ECON | Unknown | | + + +---------+ + Care Team Providers + +------+ + | Care Violin Restorer Name | Role | Phone | + +------+ + PCP | Unavailable | + +------+ + Reason for Visit +--------+ + | Reason | Comments | +--------+ + | Triage | | +--------+ + Encounter Details +--------+ + + + + | Date | Type | Department | Care Team | Description | +--------+ + + + + | 10/14/ | Telephone | [facility] | Odette Dill RN | Triage | | 2018 | | Hematology and | | | | | | Oncology Infusions | | | | | | [address] | | | | | | [place] | | | | | | [address] | | | +--------+ + + + [...] MD | | | | | | [address] | | | | | | [place] | | | | | | [address] | | | | | | | | +--------+---------+ + + + as of this encounter Visit Diagnoses Not on filein this encounter"
--- OUTSIDE RECORDS SUMMARY | ~2017-11-22 | XMS | Encounter Summary ---
Demographics + + + | Address | [address] | | | [place] [address] | + + + | Home Phone [...] + | MILLY NGUYEN | ECON | [address] | | | | | [place], | | | | | [place] [address] | | + + + + + | Holly Otoole ECON | Unknown | | + + + + + Care Team Providers + +------+ + | Care Conference Manager Name | Role | Phone | + +------+ + | Jeremy Adrian MD | PCP | | + +------+ + Encounter Details +--------+ + + + + | Date | Type | Department | Care Team | Description | +--------+ + + + + | 10/10/ | Abstract | [facility] | Cristy Rubin MD | | | 2017 | | [address] | [address] | | | | | Mail Code: CH10U | [place], [place] | | | | | [facility] | [address] | | | | | and [address] | [phone] | | | | | Floor [place], [place] | | | | | | [address] | | | | | | [phone] | | | +--------+ + + + [...] + + | 12/20/ | Diagnostic | Tile Setter | Nils Woody, | | | 2017 | Visit | | [address] | | | | | | [address] | | | | | | [place] | | | | | | [address] | | | | | | | | +--------+ + + + + as of this encounter Visit Diagnoses Not on filein this encounter"
--- OUTSIDE RECORDS SUMMARY | ~2017-11-22 | XMS | Encounter Summary ---
Demographics + + + | Address | [address] | | | [place] [address] | + + + | Home Phone | | + + + | Preferred Language | Unknown | + + + | Marital Status | | + + + | Congregational Affiliation | Unknown | + + + | Race | Unknown | + + + | Ethnic Group | Unknown | + + + Author + + + | Author | [facility] | + + + | Organization | [facility] | + + + | Address | Unknown | + + + | Phone | Unavailable | + + + Support + + +---------+ + | Name | Relationship | Address | Phone | + + +---------+ + | Yuki Nguyen | ECON | Unknown | | + + +---------+ + Care Team Providers + +------+ + | Care Systems Spec Name | Role | Phone | + [...] + + | 11/17/ | Office | [facility] | Gabriella, | Cancer of kidney, | | 2018 | Visit | Hematology and | Stephanie Dubon MD | right (HCC) (Primary | | | | Oncology [address] | Dx); Encounter for | | | | [address] | [place] | chemotherapy | | | | [place] | [address] | management | | | | [address] | | | | | | [phone] | | | +--------+---------+ + + + [...] may be diffe rent from the original. [facility] Hematology & Oncology Oncology Progress Note Patient Name: ELICEO NGUYEN Date of : 1945 Age: 72 y.o. [...] metastatic di sease. He was referred to [facility] and underwent open right radical nephrectomy [...] WITH AUTOMATED RESULTS. Final Testing performed at [facility] [place] [place] [address];[place] [address] SODIUM 10/31/2017 139 135 - 145 mmol/L [...] MDRD IDMS traceable equation. Testing performed at [facility] [place] [place] [address] MAGNESIUM 10/31/2017 2.5* 1.7 - 2.4 mg/dL Final Testing performed at [facility] [place] [place] [address] INR 10/31/2017 1.0 Final Comment: REFERENCE RANGE: 0.9 - 1.2 NON-ANTICOAGULATED 2.0 - 3.0 ALL OTHER THERAPEUTIC INDICATIONS 2.5 - 3.5 MECHANICAL HEART VALVES, RECURRENT OR SYSTEMIC EMBOLISM Testing performed at [facility] [place] [place] [address] APTT 10/31/2017 30 23 - 32 seconds Final Testing performed at [facility] [place] [place] [address] LIPASE 10/31/2017 146 73 - 393 U/L Final Testing performed at [facility] [place] [place] [address] COLOR UA 10/31/2017 COLORLESS Final CLARITY 10/31/2017 CLEAR Final Specific Equality, UA 10/31/2017 1.006 1.002 - 1.030 Final LEUKOCYTE ESTERASE 10/31/2017 NEGATIVE NEGATIVE Final NITRITE 10/31/2017 NEGATIVE NEGATIVE Final UROBILINOGEN 10/31/2017 NORMAL <1.1 mg/dL Final PROTEIN 10/31/2017 NEGATIVE NEGATIVE mg/dL Final PH,URINE 10/31/2017 7.0 5.0 - 8.0 Final BLOOD 10/31/2017 NEGATIVE NEGATIVE Final KETONES 10/31/2017 NEGATIVE NEGATIVE mg/dL Final BILIRUBIN 10/31/2017 NEGATIVE NEGATIVE Final GLUCOSE 10/31/2017 >500* NEGATIVE mg/dL Final Testing performed at [facility] [place] [place] [address];[place] [address] Assessment Mr. Eliceo Nguyen is a pleasant [...] 50% of that time was spent in wrsm-yh-obxt encounter. Stephanie Quiroz MD [facility] Hematology & Oncology 11/17/2017 Portions of this [...] [place] | | | | | | [address] | | | | | | | [...]
--- OUTSIDE RECORDS SUMMARY | ~2017-11-22 | XMS | Encounter Summary ---
Demographics + + + | Address | [address] | | | [place] [address] | + + + | Home Phone | | + + + | Preferred Language | Unknown | + + + | Marital Status | | + + + | Confucianism Affiliation | Unknown | + + + | Race | Unknown | + + + | Ethnic Group | Unknown | + + + Author + + + | Author | [facility] | + + + | Organization | [facility] | + + + | Address | Unknown | + + + | Phone | Unavailable | + + + Support + + +---------+ + | Name | Relationship | Address | Phone | + + +---------+ + | Yuki Nguyen | ECON | Unknown | | + + +---------+ + Care Team Providers + +------+ + | Care Program Clinician Name | Role | Phone | + [...] + + | 10/31/ | Telephone | [facility] | Nanda Vaughan | Oncology Nurse | | 2018 | | Hematology and | C, RN | Navigation | | | | Oncology [address] | | | | | | [address] | | | | | | [place] | | | | | | [address] | | | | | | [phone] | | | +--------+ + + + [...] [place] | | | | | | [address] | | | | | | | | +--------+---------+ + + + as of this encounter Visit Diagnoses Not on filein this encounter"
--- OUTSIDE RECORDS SUMMARY | ~2017-11-22 | XMS | Encounter Summary ---
Demographics + + + | Address | [address] | | | [place] [address] | + + + | Home Phone | | + + + | Preferred Language | Unknown | + + + | Marital Status | | + + + | Hindu Affiliation | LDS | + + + | Race | White | + + + | Ethnic Group | Not or | + + + Author + + + | Author | [facility] | + + + | Organization | [facility] | + + + | Address | Unknown | + + + | Phone | Unavailable | + + + Support + + + + + | Name | Relationship | Address | Phone | + + + + + | MILLY NGUYEN | ECON | [address] | | | | | [place], | | | | | [place] [address] | | + + + + + | Holly Burrell | ECON | Unknown | | + + + + + Care Team Providers + +------+ + | Care Signal Manager Name | Role | Phone | [...] | | | | | floor [address] [facility] | | | | | | [facility] | | | | | | [place], [place] | | | | | | [address] | | | +--------+ + + + [...] + + | 12/20/ | Diagnostic | Warm In | Nils Woody, | | | 2018 | Visit | | [address] | | | | | | [address] | | | | | | [place] | | | | | | [address] | | | | | | | | +--------+ + + + + as of this encounter Visit Diagnoses Not on filein this encounter"
--- OUTSIDE RECORDS SUMMARY | ~2017-11-22 | XMS | Encounter Summary ---
Demographics + + + | Address | [address] | | | [place] [address] | + + + | Home Phone [...] + | MILLY NGUYEN | ECON | [address] | | | | | [place], | | | | | [place] [address] | | + + + + + | Holly Otoole ECON | Unknown | | + + + + + Care Team Providers + +------+ + | Care Child And Youth Program Assistant Name | Role | Phone | + +------+ + | Jeremy Adrian MD | PCP | | + +------+ + Encounter Details +--------+ + + + + | Date | Type | Department | Care Team | Description | +--------+ + + + + | 09/07/ | Abstract | [facility] at [facility] | Cristy Rubin MD | | | 2017 | | [address] | [address] | | | | | Mail Code: CH10U | [place], [place] | | | | | [facility] | [address] | | | | | and [address] | [phone] | | | | | [place], [place] | | | | | | [address] | | | | | | [phone] | | | +--------+ + + + [...] + + | 12/20/ | Diagnostic | House Wrecker | Nils Woody, | | | 2017 | Visit | | [address] | | | | | | [address] | | | | | | [place], [place] | | | | | | [address] | | | | | | | | +--------+ + + + + as of this encounter Visit Diagnoses Not on filein this encounter"
--- OUTSIDE RECORDS SUMMARY | ~2017-11-22 | XMS | Encounter Summary ---
Demographics + + + | Address | [address] | | | [place] [address] | + + + | Home Phone | | + + + | Preferred Language | Unknown | + + + | Marital Status | | + + + | Episcopal Affiliation | Unknown | + + + | Race | Unknown | + + + | Ethnic Group | Unknown | + + + Author + + + | Author | [facility] | + + + | Organization | [facility] | + + + | Address | Unknown | + + + | Phone | Unavailable | + + + Support + + +---------+ + | Name | Relationship | Address | Phone | + + +---------+ + | Yuki Nguyen | ECON | Unknown | | + + +---------+ + Care Team Providers + +------+ + | Care Knitting Machine Operator Automatic Name | Role | Phone | + [...] | | Radiology | Diagnoses | | [facility] | | | | | Cancer of | [place], | [address] | | | | | kidney, | [address] | Blvd | | | | | right (HCC) | [address] | [place] | | | | | Procedures | [place] | [address] Phone: | | | | | MRI brain | AVE | [phone] | | | | | with and | [place], | Fax: | | | | | without | [place] [address] | [phone] | | | | | contrast | Phone: | | | | | | | [phone] | | | | | | | Fax: | | | | | | | [phone] | | + +--------+ + + + + Nuclear Medicine (Urgent) + +--------+ + + + + | Status | Reason | Specialty | Diagnoses / | Referred By | Referred To | | | | | Procedures | Contact | Contact | + +--------+ + + + + | Authorized | | Radiology | Diagnoses | | [facility] | | | | | Cancer of | [place], | Nuclear | | | | | kidney, | [address] | [address] | | | | | right (HCC) | [address] | [place] | | | | | Procedures | [address] | [place], [place] | | | | | [place] bone | AVE | [address] Phone: | | | | | scan whole | [place], | [phone] | | | | | body | [place] [address] | x4385 | | | | | | Phone: | | | | | | | [phone] | | | | | | | Fax: | | | | | | | [phone] | | + +--------+ + + + + MRI/CAT Scan (Urgent) + +--------+ + + + + | Status | Reason | Specialty | Diagnoses / | Referred By | Referred To | | | | | Procedures | Contact | Contact | + +--------+ + + + + | Authorized | | Radiology | Diagnoses | | [facility] [address] | | | | | Cancer of | [place], | [address] | | | | | kidney, | [address] | Blvd | | | | | right (HCC) | [address] | [place], [place] | | | | | Procedures | [address] | [address] Phone: | | | | | CT chest | AVE | [phone] | | | | | without | [place] | | | | | | contrast | [place] [address] | | | | | | | Phone: | | | | | | | [phone] | | | | | | | Fax: | | | | | | | [phone] | | + +--------+ + + + [...] | unspecified | [address] | [address] | | | | | laterality | AVE | [address] | | | | | (HCC) ONC | [place], [place] | [place], | | | | | | [address] | [place] [address] | | | | | | Phone: | Phone: | | | | | | [phone] | [phone] | | | | | | Fax: | Fax: | | | | | | [phone] | [phone] | + +--------+ + + + + Encounter Details +--------+---------+ + + + | Date | Type | Department | Care Team | Description | +--------+---------+ + + + | 10/04/ | Office | [facility] | Gabriella, | Encounter for | | 2017 | Visit | Hematology and | Stephanie Dubon MD | antineoplastic | | | | Oncology [address] | chemotherapy | | | | [address] | [place] | (Primary Dx); Cancer | | | | [place] | [address] | of kidney, right | | | | [address] | | (HCC) | | | | [phone] | | | +--------+---------+ + + + [...] may be diffe rent from the original. [facility] Hematology & Oncology Initial Oncology Consultation Patient [...] metastatic di sease. He was referred to [facility] and underwent open right radical nephrectomy along [...] Titrate dose as tolerated. Stephanie Quiroz MD [facility] Hematology & Oncology 10/04/2017 Portions of this [...] [place] | | | | | | [address] | | | | | | | [...]
--- OUTSIDE RECORDS SUMMARY | ~2017-11-22 | XMS | Encounter Summary ---
Demographics + + + | Address | [address] | | | [place] [address] | + + + | Home Phone | | + + + | Preferred Language | Unknown | + + + | Marital Status | | + + + | Hinduism Affiliation | Unknown | + + + | Race | Unknown | + + + | Ethnic Group | Unknown | + + + Author + + + | Author | [facility] | + + + | Organization | [facility] | + + + | Address | Unknown | + + + | Phone | Unavailable | + + + Support + + +---------+ + | Name | Relationship | Address | Phone | + + +---------+ + | Yuki Nguyen | ECON | Unknown | | + + +---------+ + Care Team Providers + +------+ + | Care Tail Trimmer Name | Role | Phone | + [...] | | Radiology | Diagnoses | | [facility] | | | | | Cancer of | [place], | [address] | | | | | kidney, | [address] | Blvd | | | | | right (HCC) | [address] | [place] | | | | | Procedures | [address] | [address] Phone: | | | | | MRI brain | AVE | [phone] | | | | | with and | [place], | Fax: | | | | | without | [place] [address] | [phone] | | | | | contrast | Phone: | | | | | | | [phone] | | | | | | | Fax: | | | | | | | [phone] | | + +--------+ + + + + Nuclear Medicine (Urgent) + +--------+ + + + + | Status | Reason | Specialty | Diagnoses / | Referred By | Referred To | | | | | Procedures | Contact | Contact | + +--------+ + + + + | Authorized | | Radiology | Diagnoses | | [facility] | | | | | Cancer of | [place], | Nuclear | | | | | kidney, | [address] | [address] | | | | | right (HCC) | [address] | [place] | | | | | Procedures | [address] | [place], [place] | | | | | [place] bone | AVE | [address] Phone: | | | | | scan whole | [place], | [phone] | | | | | body | [place] [address] | x4385 | | | | | | Phone: | | | | | | | [phone] | | | | | | | Fax: | | | | | | | [phone] | | + +--------+ + + + + MRI/CAT Scan (Urgent) + +--------+ + + + + | Status | Reason | Specialty | Diagnoses / | Referred By | Referred To | | | | | Procedures | Contact | Contact | + +--------+ + + + + | Authorized | | Radiology | Diagnoses | | [facility] [address] | | | | | Cancer of | [place], | [address] | | | | | kidney, | [address] | Blvd | | | | | right (HCC) | [address] | [place], [place] | | | | | Procedures | [address] | [address] Phone: | | | | | CT chest | AVE | [phone] | | | | | without | [place] | | | | | | contrast | [place] [address] | | | | | | | Phone: | | | | | | | [phone] | | | | | | | Fax: | | | | | | | [phone] | | + +--------+ + + + [...] | unspecified | [address] | [address] | | | | | laterality | AVE | [address] | | | | | (HCC) ONC | [place], [place] | [place], | | | | | | [address] | [place] [address] | | | | | | Phone: | Phone: | | | | | | [phone] | [phone] | | | | | | Fax: | Fax: | | | | | | [phone] | [phone] | + +--------+ + + + + Encounter Details +--------+---------+ + + + | Date | Type | Department | Care Team | Description | +--------+---------+ + + + | 10/04/ | Office | [facility] | Gabriella, | Encounter for | | 2017 | Visit | Hematology and | Stephanie Dubon MD | antineoplastic | | | | Oncology [address] | chemotherapy | | | | [address] | [place] | (Primary Dx); Cancer | | | | [place] | [address] | of kidney, right | | | | [address] | | (HCC) | | | | [phone] | | | +--------+---------+ + + + [...] may be diffe rent from the original. [facility] Hematology & Oncology Initial Oncology Consultation Patient [...] metastatic di sease. He was referred to [facility] and underwent open right radical [...] Titrate dose as tolerated. Stephanie Quiroz MD [facility] Hematology & Oncology 10/04/2017 Portions of this [...] [place] | | | | | | [address] | | | | | | | [...]
--- OUTSIDE RECORDS SUMMARY | ~2017-11-22 | XMS | Encounter Summary ---
Demographics + + + | Address | [address] | | | [place] [address] | + + + | Home Phone [...] + | MILLY NGUYEN | ECON | [address] | | | | | [place], | | | | | [place] [address] | | + + + + + | Holly Otoole ECON | Unknown | | + + + + + Care Team Providers + +------+ + | Care Junior Account Executive Name | Role | Phone | + +------+ + | Jeremy Adrian MD | PCP | | + +------+ + Encounter Details +--------+ + + + + | Date | Type | Department | Care Team | Description | +--------+ + + + + | 10/07/ | Abstract | [facility] at [facility] | Cristy Rubin MD | | | 2017 | | [address] | [address] | | | | | Mail Code: [id number] | [place], [place] | | | | | [facility] | [address] | | | | | and [address] | [phone] | | | | | Floor [place], [place] | | | | | | [address] | | | | | | [phone] | | | +--------+ + + + [...] + + | 12/20/ | Diagnostic | Junk Removal Specialist | Nils Woody, | | | 2017 | Visit | | [address] | | | | | [address] | | | | | | [place] | | | | | | [address] | | | | | | | | +--------+ + + + + as of this encounter Visit Diagnoses Not on filein this encounter"
--- OUTSIDE RECORDS SUMMARY | ~2017-11-22 | XMS | Encounter Summary ---
Demographics + + + | Address | [address] | | | [place] [address] | + + + | Home Phone | | + + + | Preferred Language | Unknown | + + + | Marital Status | | + + + | Catholic Affiliation | LDS | + + [...] + | MILLY NGUYEN | ECON | [address] | | | | | [place], | | | | | [place] [address] | | + + + + + | Holly Burrell | ECON | Unknown | | + + + + + Care Team Providers + +------+ + | Care Loan Funder Name | Role | Phone | + [...] OPEN RADICAL | | 2018 | | [facility] | [address] | NEPHRECTOMY CAVAL | | | | Admitting Desk | [place], [place] | THROMBECTOMY, | | | | Located on the | [address] | RETROPERITONEAL | | | | floor [address] | [phone] | LYMPH NODE | | | | [facility] | | DISSECTION, | | | | [place], [place] | | | | | | [address] | | | +--------+---------+ + + + [...] may be different fr om the original. [facility] Inpatient Discharge Summary Mario Guardado MD Attending [...] can cause constipation, so you may take ztnr-viq-lunyold stool softeners (Senok ot-S, Miralax, Colace) following [...] ----- ----- ----- When to Call: JO-ANN knockout machine operator after hours and ask for the Surgery Physician A ssistant, Nurse or Surgery Resident ux interaction designer if you have any of the followin. [...] 10/06/2017 9:30 AM Alison Garcia Urology at [facility] [phone] Urology 12/20/2017 8:30 AM Keyla Adam; AUDIO CASTELLON 4 Otolaryngology Audiology Services at [facility] [phone] Otolaryngo Our schedulers will contact you to make an appointment. Your appointment will be on the 10t h floor of the [facility]. If you do not hear [...] 10/06/2017 9:30 AM Alison Garcia Urology at [facility] [phone] Urology 12/20/2017 8:30 AM Keyla Adam; AUDIO CASTELLON 4 Otolaryngology Audiology Services at [facility] [phone] Otolaryngolo ----- Condition On Discharge: Good Vital [...] questions. Mario Guardado MD Urology PGY-1 Pg [phone] [facility] 4A [id number] [place] [address] Associated attestation - Cristy Rubin MD - 09/17/2017 10:05 AM PDTI agree with discharge summary as written by Dr. Guardado. Pt will follow up in 3 weeks. Alex Rubin MD Horticultural Manager Department of Urology [facility] in this encounter Discharge Instructions Xochilt [...] + as of this encounter Progress Notes Eedr Gann MD,MPH - 09/17/2017 7:41 AM PDTFormatting [...] 2.2 H&H 7.9/26.1 (from 7.3/24.4 yesterday) Imaging: [facility] ABDOMINAL DUPLEX LTD ARTERY VEIN 09/16/2017 [...] Please page the Vascular Surgery Team pager #[phone] with questions. Eder Gann M.D., M.P.H. Neurological Surgery Resident PGY-1 Pager: [phone] This assessment and plan was formulated both independently and in conjunction with the [facility] ular Surgery Team as well as [...] primary team Doroteo Lawton MD Vascular Surgery Operations Business Partner Please page the Vascular Surgery Team pager# [phone] for questions Current Facility-Administered Medications: acetaminophen (TYLENOL) [...] the resident s note. Christian Mckeon M.D. [facility] Vascular Surgery [address] [place] [address], [address] [address] Email: [email or web address] Mario Guardado MD - 09/16/2017 8:52 AM PDTFormatting of this note may be different fr om the original. Urology Progress Note Hospital Day: 3 Author: KOBE BAEZA MD Attending Physician: Cristy Rubin MD Patient: ELICEO NGUYEN [id number] 24H events/Subjective: ELVIS overnight. Pain is well [...] primary team Doroteo Lawton MD Vascular Surgery Operations Business Partner Please page the Vascular Surgery Team pager# [phone] for questions Current Facility-Administered Medications: acetaminophen (TYLENOL) [...] the resident s note. Christian Mckeon M.D. [facility] Vascular Surgery [address] [place] [address], [address] [address] Email: [email or web address] Kobe Baeza MD - 09/15/2017 8:50 AM PDTFormatting of this note may be different from lashay hilario. Urology Progress Note Hospital Day: 2 Author: KOBE BAEZA MD Attending Physician: Cristy Rubin MD Patient: ELICEO NGUYEN [id number] 24H events/Subjective: ELVIS overnight. Pain is well [...] 0659 09/15/17 07 - 09/16/17 0659 Shift [phone] [id number] 24 Hour Total 1014-0213 3258-7332 [id number] 24 Hour Total I N T A [...] mg, intravenous, Q2H PRN HYDROmorphone 0.5 mg/mL SENIOR JAVA WEB DEVELOPER (ADULT STANDARD DOSE) in 0.9 % NaCl, , intravenous, CONTINUOUS HYDROmorphone 0.5 mg/mL rescue bolus from SENIOR JAVA WEB DEVELOPER (ADULT STANDARD DOSE) 0.2 mg, 0.2 mg, [...] Rubin MD. Kobe Baeza MD Urology Pager [phone] Nata Roland MD - 09/14/2017 3:04 PM PDTFormatting of this note may be different fro m the original. Cardiovascular Intensive Care Unit Team Progress Note CVICU D2 Assigned #[id number] Admission dx: N28.89 (ICD-10-CM) - 593.9 (ICD-9-CM) - RENAL MASS Days in ICU 1 Days in Hospital Abbreviated HPI / Daily Assessment Mr. 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 24 Hour events -arterial line d/c -softer pressures overnight, but did not receive IVF bolus -pain well controlled with SENIOR JAVA WEB DEVELOPER -CLD Code Status Code Status Full Code Active Diagnosis with Assessment & Plan Priority Class POA Head/Neck Cochlear implant in place Yes Current Assessment & Plan Working well. Able to hear well except over the phone. Cardiovascular Essential hypertension Yes Current Assessment & Plan Well controlled with valsartan TAXONOMY TEACHER. -Hold in post-operative period Digestive Gastroesophageal reflux disease Yes Current Assessment & Plan On pantoprazole as outpatient. -Continue omeprazole (formulary) Dysphagia Unknown Current Assessment & Plan Has had issues with swallowing and dysphagia for quite some time. Crushes all meds and ta kes them with applesauce. MANAGER MONEY consult and recommend barium swallow. -CLD -Barium swallow today -MANAGER MONEY following Hematologic Acute blood loss anemia Unknown [...] Vena cava graft done by vascular. Has SENIOR JAVA WEB DEVELOPER. 6.3 L crystalloid given during the case-no blood products given (1200 mL EBL). Did well overnight HD and with pain control. -Continue motta per urology -HM SENIOR JAVA WEB DEVELOPER -CLD until MANAGER MONEY eval/uro approval -Closely monitor hemodynamics -[facility] status Code Status Updated to: FULL Physical [...] Cristy Rubin MD Admitting Provider Urological Surgery [id number] The Advanced Care Note for this patient can be found under the notes tab in chart review. Quality section Motta necessity reviewed: Acute urinary retention or obstruction FAST HUG Feeding: clears Analgesia: SENIOR JAVA WEB DEVELOPER Sedation: n/a Thromboprophylaxis: Heparin SQ Head of Bed: Speech and swallow evaluation Ulcer Prophylaxis: Omeprazole Glycemic Control: insulin sliding Created by Nata Roland MD Author:Nata Roland MD [address] [address] [place] [address]Jzmpp, Alan J, MD - 09/14/2017 10:11 AM PDTFormatting of this note m ay be different from the original. Cardiovascular Intensive Care Unit Attending Progress Note CVICU D2 Assigned #[id number] Hospital admission dx: N28.89 (ICD-10-CM) - 593.9 [...] if Hct drops - pain control w/ SENIOR JAVA WEB DEVELOPER - bronchiole hygiene - mobilize - speech/swallow eval, if advance diet stop IVF Dispo: stable for [facility] Hospital Problems Priority POA Head/Neck Cochlear implant [...] Cristy Rubin MD Admitting Provider Urological Surgery [id number] Code Status Code Status Full Code The [...] exceptions/additions as noted. Date of Service: 09/14/2017 [facility] DEPARTMENT: ANE ICU CARDIAC Place of Service:- Inpatient CSN: [id number] Suggested Modifier: GC - Resident Involved Suggested CPT: TO LABORATORY TECHNOLOGY TEACHER Author:Moustapha Lema MD [address] [address] [place] [address]IlrnbwhMario panchal MD - 09/14/2017 8:33 AM PDTUrology Progress Not e Hospital Day: 1 Author: Mario Guardado MD Attending Physician: Cristy Rubin MD Patient: ELICEO NGUYEN [id number] 24H events/Subjective: No acute events overnight Pt [...] suspected dysphagia vs. Pharyngeal diverticulum - Continue SENIOR JAVA WEB DEVELOPER pain control - Heparin prophylaxis - Maintain motta catheter - Oxybutynin for bladder discomfort due to motta #Caval graft - Aspirin 81mg daily The attending of record for this patient is Cristy Rubin MD. Mario Guardado MD Department of Urology [facility] Madiha Ramirez MD - 09/14/2017 6:08 [...] Clinical Update Note Team: D2 Team Pager: [phone] Attending: Dr. Rios Pt Name: Eliceo Nguyen ID: Abbreviated HPI Abbreviated HPI / Daily Assessment Mr. 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 Update: Pain well controlled with HM SENIOR JAVA WEB DEVELOPER. A-line no longer correlating with cuff BP [...] post nephrectomy Unknown Plan: - continue HM SENIOR JAVA WEB DEVELOPER - d/c a-line - SSI - cbc [...] ICU CARDIAC Place of Service:- Inpatient CSN: [id number] Suggested Modifier: None Suggested CPT: TO LABORATORY TECHNOLOGY TEACHER MCKAYLA VIEYRA in this encounter Plan of Treatment +--------+ + + + + | Date | Type | Specialty | Care Team | Description | +--------+ + + + + | 12/20/ | Diagnostic | Computerized Table Cutter | Nils Woody, | | | 2017 | Visit | | GRETCHEN [address] | | | | | | [address] | | | | | | [place], [place] | | | | | | [address] | | | | | | | [...] [facility] | [address] | [place], [place] | | | TORSTEN TSAI OF [place] | [address] | [address] | | | TESTS | | | [...] (H) | 35.1 - 46.3 fL | [facility] | | | | | SERVICES, CORE | + + + + + | PLATELET COUNT | 373 | 150 - 400 K/cu mm | [facility] | | | | | SERVICES, CORE | + + + + + | MPV | 10.4 | 9.7 - 12.3 fL | [facility] | | | | | SERVICES, CORE | + + + + + | NRBC% | 0.0 | 0.0 - 0.3 % | [facility] | | | | | SERVICES, CORE | + + + + + | NRBC# | 0.00 | 0.00 - 0.02 K/cu mm | [facility] | | | | | [...] | + + + + + | [facility] | [address] | [place] [address] | | | SERVICES, CORE | [address] | | | + + + + + PHOSPHORUS, PLASMA (09/17/2017 4:50 AM) + +---------+ + + | Component | Value | Ref Range | Performed At | + +---------+ + + | PHOSPHORUS, PLASMA | 2.2 (L) | 2.4 - 4.7 mg/dL | [facility] | | (LAB) | | | SERVICES, CORE | + +---------+ + + + + | Specimen | + + | Blood - Blood | + + + + + + + | Performing | Address | City/State/Zipcode | Phone Number | | Organization | | | | + + + + + | [facility] | [address] | [place] [address] | | | SERVICES, [place] | [address] | | | + + + + + MAGNESIUM, PLASMA (09/17/2017 4:50 AM) + +-------+ + + | Component | Value | Ref Range | Performed At | + +-------+ + + | MAGNESIUM,PLASMA | 2.0 | 1.6 - 2.6 mg/dL | [facility] | | | | | [...] + + | [facility] | [address] | [place] [address] | | | SERVICES, CORE | [address] [...] LABORATORY | | -PORTUGUESE | | | TAMIKA, CORE | + [...] LABORATORY | | (LAB) | | | [facility], CORE | + +---------+ + + | CALCIUM, PLASMA | 8.2 (L) | 8.6 - 10.2 mg/dL | [facility] | | (LAB) | | | SERVICES, CORE | + +---------+ + + | ANION GAP | 6 | 4 - 11 mmol/L | [facility] | | | | | SERVICES, CORE | + +---------+ + + | POTASSIUM CMNT | No Hemo | | [facility] | | | | | SERVICES, CORE | + +---------+ + + + + | Specimen | + + | Blood - Blood | + + + + + | Narrative | Performed At | + + + | GFR is estimated using the MDRD equation recommended by the | [facility] | | National Kidney Disease Education [...] | + + + + + | [facility] 20x200 | [address] | [place] [address] | | | XENIA LUNDBERG | [address] [...] + + | [facility] | [address] | [place], [place] | | | TORSTEN TSAI OF CARE | [place] | [address] | | | TESTS | | | [...] [facility] | [address] | [place], [place] | | | [facility] POINT OF CARE | [address] | [address] | | | TESTS | | | [...] + + + | [facility] | [address] | [place], [place] | | | [facility]I OF [facility] | [address] | [address] | | | TESTS | | | [...] Note | + + | Service Account, Radiflo.do Res In Interface - 09/16/2017 12:28 PM [...] | | + +---------+ + + | [facility] | | | | | [facility] | | | | + +---------+ [...] [facility] | [address] | [place], [place] | | | [facility] | [address] | [address] | | | TESTS | | | | + + + + + CBC (HEMOGRAM) ONLY (09/16/2017 4:16 AM) + + + + + | Component | Value | Ref Range | Performed At | + + + + + | WHITE CELL COUNT | 9.09 | 3.50 - 10.80 K/cu mm | [facility] | | | | | SERVICES, [...] | + + + + + | [facility] | [address] | [place] [address] | | | TAMIKA, XENIA | [address] | | | + + + + + PHOSPHORUS, PLASMA (09/16/2017 4:16 AM) + +---------+ + + | Component | Value | Ref Range | Performed At | + +---------+ + + | PHOSPHORUS, PLASMA | 2.1 (L) | 2.4 - 4.7 mg/dL | [facility] | | (LAB) | | | [address]IA [address] | + +---------+ + + + + | Specimen | + + | Blood - Blood | + + + + + + + | Performing | Address | City/State/Zipcode | Phone Number | | Organization | | | | + + + + + | [facility] | [address] | [place] [address] | | | SERVICES, [place] | [address] [...] [facility] | [address] | [place] [address] | | | [facility] | [address] | | | + + + + + BASIC METABOLIC SET (NA, K, CL, TCO2, BUN, CR, GLU, CA) (09/16/2017 4:16 AM) + +---------+ + + | Component | Value | Ref Range | Performed At | + +---------+ + + | GLUCOSE, PLASMA | 160 (H) | 70 - 99 mg/dL | [facility] | | (LAB) | | [...] | + + + + + | [facility] | [address] | [place] [address] | | | SERVICES, CORE | [address] [...] [facility] | [address] | [place], [place] | | | QU[place] POINT OF CARE | [place] | [address] | | | TESTS | | | [...] [facility] | [address] | [place], [place] | | | QU[place] POINT OF CARE | [address] | [address] | | | TESTS | | | [...] [facility] | [address] | [place], [place] | | | HILL, POINT OF CARE | [address] | [address] | | | TESTS | | | [...] [facility] | [address] | [place], [place] | | | [facility] | [address] | [address] | | | TESTS | | | | + + + + + CBC (HEMOGRAM) ONLY (09/15/2017 5:25 AM) + + + + + | Component | Value | Ref Range | Performed At | + + + + + | WHITE CELL COUNT | 11.47 (H) | 3.50 - 10.80 K/cu mm | [facility] | | | | | [...] (L) | 41.0 - 53.0 % | [facility] | | | | | SERVICES, CORE | + + + + + | MCV | 79.1 (L) | 80.0 - 100.0 fL | [facility] | | | | | SERVICES, [...] [facility] | [address] | [place] [address] | | | SERVICES, X[place] | [address] | | | + + + + + PHOSPHORUS, PLASMA (09/15/2017 5:25 AM) + +---------+ + + | Component | Value | Ref Range | Performed At | + +---------+ + + | PHOSPHORUS, PLASMA | 2.2 (L) | 2.4 - 4.7 mg/dL | [facility] | | (LAB) | | | [address] | + +---------+ + + + + | Specimen | + + | Blood - Blood | + + + + + + + | Performing | Address | City/State/Zipcode | Phone Number | | Organization | | | | + + + + + | [facility] | [address] | [place] [address] | | | SERVICES, CORE | [address] [...] [facility] | [address] | [place] [address] | | | SERVICES, CORE | [address] [...] | + + + + + | [facility] | [address] | [place] [address] | | | SERVICES, CORE | [address] [...] [facility] | [address] | [place], [place] | | | QU[place] POINT OF CARE | [place] | [address] | | | TESTS | | | [...] [facility] | [address] | [place], [place] | | | QUIN POINT OF CARE | [address] | [address] | | | TESTS | | | | + + + + + MODIFIED BARIUM SWALLOWING (09/14/2017 3:00 PM) + + + | Narrative | Performed At | + + + | EXAM: Modified Barium Swallow HISTORY: MANAGER MONEY | [facility] | | recommended. Patient with [...] EXAM: Modified | | Barium Swallow HISTORY: MANAGER MONEY recommended. Patient with problems swallowing. Recent | [...] now | | | presented. Final signature: Remignton Kruse MD 09/15/2017 9:59 | | | AM Preliminary: Josefina Toribio MD 09/14/2017 3:27 PM Dictation | | | initiated: Josefina Toribio MD 09/14/2017 3:22 PM | | + + + + + | Procedure Note | + + | Service Account, Ayasdi Res In Interface - 09/15/2017 10:05 AM [...] the report as now presented. Final signature: Remingotn Kruse MD | | 09/15/2017 9:59 AM [...] [facility] | [address] | [place], [place] | | | QU[place] POINT OF CARE | [address] | [address] | | | TESTS | | | [...] 10.3 | 9.7 - 12.3 fL | [facility] | | | | | SERVICES, CORE | + + + + + | NRBC% | 0.0 | 0.0 - 0.3 % | [facility] | | | | | SERVICES, CORE | + + + + + | NRBC# | 0.00 | 0.00 - 0.02 K/cu mm | [facility] | | | | | SERVICES, [...] | + + + + + | [facility] | [address] | [place] [address] | | | XENIA LUNDBERG | [address] | | | + + + + + PHOSPHORUS, PLASMA (09/14/2017 12:02 AM) + +-------+ + + | Component | Value | Ref Range | Performed At | + +-------+ + + | PHOSPHORUS, PLASMA | 3.8 | 2.4 - 4.7 mg/dL | [facility] | | (LAB) | | | SERVICES, CORE | + +-------+ + + + + | Specimen | + + | Blood - Blood | + + + + + + + | Performing | Address | City/State/Zipcode | Phone Number | | Organization | | | | + + + + + | [facility] | [address] | [place] [address] | | | SERVICES, CORE | [address] [...] | + + + + + | [facility] | [address] | [place] [address] | | | XENIA LUNDBERG | [address] [...] | Interpretive Information: <60 mL/min/1.73 sq | [facility] | | m Chronic Kidney Disease <15 [...] | + + + + + | [facility] | [address] | [place] [address] | | | TAMIKA, XENIA | [address] [...] - [facility] | [address] | [place], [place] | | | QUIN POINT OF CARE | [address] | [address] | | | TESTS | | | [...] [facility] | [address] | [place], [place] | | | TORSTEN TSAI OF CARE | [address] | [address] | | | TESTS | | | [...] 0.0 | 0.0 - 0.3 % | [facility] | | | | | SERVICES, CORE | + + + + + | NRBC# | 0.00 | 0.00 - 0.02 K/cu mm | [facility] | | | | | SERVICES, CORE | + + + + + + + | Specimen | + + | Blood - Blood | + + + + + | Narrative | Performed At | + + + | New reference ranges for MCV, MCHC, PLT, IG% and IG# effective | [facility] | | 08/04/2017 | LABORATORY | | | SERVICES, CORE | + + + + + + + + | Performing | Address | City/State/Zipcode | Phone Number | | Organization | | | | + + + + + | [facility] | [address] | [place] [address] | | | SERVICES, CORE | [address] [...] LABORATORY | | (LAB) | | | [facility] | + +---------+ + + | POTASSIUM CMNT | No Hemo | | [facility] | | | | | SERVICES, [facility] | + +---------+ + + | ANION GAP | 7 | 4 - 11 mmol/L | [facility] | | | | | SERVICES, CORE | + +---------+ + + | ANION GAP(ALB | 11 | 4 - 11 mmol/L | [facility] | | CORRECTED) | | | [facility] | + +---------+ + + + + | Specimen | + + | Blood - Blood | + + + + + | Narrative | Performed At | + + + | GFR is estimated using the MDRD equation recommended by the | [facility] | | National Kidney Disease Education Program. Estimated GFR | LABORATORY | | Interpretive Information: <60 mL/min/1.73 sq | [facility] | | m Chronic Kidney Disease <15 [...] | + + + + + | [employer] | [address] | [place] [address] | | | XENIA LUNDBERG | [address] | | | + + + + + X-RAY PORTABLE CHEST 1 VIEW (09/13/2017 3:54 PM) + + + | Narrative | Performed At | + + + | EXAM: MT CHEST 1 VIEW HISTORY: verify central line [...] Interface - 09/13/2017 3:54 PM PDT EXAM: MT CHEST 1 | | VIEW HISTORY: verify [...] + | [facility] | [address] | [place], [place] | | | QUIN [facility] | [address] | [address] | | | TESTS | | | [...] bleeding was controlled with the argon beam steel loader. Dr. Young | | | was consulted [...] case. Alex Rubin MD | | | Horticultural Manager Department of Urology [facility] | | | University | | + [...] - [facility] | [address] | [place], [place] | | | QUIN POINT OF CARE | [address] | [address] | | | TESTS | | | | + + + + + ABG-FULL ABL, POC (09/13/2017 1:12 PM) + + + + + | Component | Value | Ref Range | Performed At | + + + + + | PH ARTERIAL, POC | 7.42 | 7.37 - 7.44 | [facility] | | | | | TORSTEN [...] [facility] | [address] | [place], [place] | | | TORSTEN TSAI OF CARE | [place] | [address] | | | TESTS | | | [...] | + + + + + | [facility] | [address] | [place], [place] | | | QUIN [facility] | [address] | [address] | | | TESTS | | | | + + + + + SURGICAL PATHOLOGY (09/13/2017 12:02 PM) + + + + + | Component | Value | Ref Range | Performed At | + + + + + | Clinical History | N28.89 (ICD-10-CM) - | | [facility] DEPARTMENT | | | 593.9 (ICD-9-CM) - RENAL | | OF PATHOLOGY | | | MASS | | | + + + + + | Final Pathologic | A. Right kidney and | | [facility] | | Diagnosis | adrenal [...] | Received are 6 specimens | | [facility] | | | fresh in containers | | OF PATHOLOGY | | | labeled with the | | | | | patient's name (initials | | | | | DG) and medical record | | | | | number [id number]. | | | | | Kidney, Right [...] | =blackSubmitted: | | | | | Senior Applications Engineer A1: Renal | | | | | [...] 9 | | | | | o'clock. Senior Applications Engineer | | | | | sections are [...] | ANCILLARY | Analyte specific | | [facility] DE[facility] | | INFORMATION | reagents [...] | | | | | determined by [facility] | | | | | laboratories. [...] | + + + + + | [facility] | [address] | [place] [address] | | | PATHOLOGY | [address] | | | + + + + + PRODUCT - RED CELLS LEUKOREDUCED (09/13/2017 11:39 AM) + + + + + | Component | Value | Ref Range | Performed At | + + + + + | PRODUCT DESCRIPTION | -1 RED BLOOD CELL | | [facility] | | | ADENINE-SALINE ADDED | | SERVICES, | | | LEUKOCYTE | | TRANSFUSION | | | | | MEDICINE | + + + + + | PRODUCT UNIT # | [id number] | | [facility] | | | [...] + + + | EXPIRATION DATE | [id number] | | [facility] | | | [...] + + | BLOOD PRODUCT CODE | [id number] | | [facility] | | | | | SERVICES, | | | | | TRANSFUSION | | | | | MEDICINE | + + + + + + + + + + | Performing | Address | City/State/Zipcode | Phone Number | | Organization | | | | + + + + + | [facility] | [address] | [place] [address] | | | SERVICES, | [address] [...] + + | PRODUCT UNIT # | [id number] | | [facility] | | | [...] + + + | EXPIRATION DATE | [id number] | | [facility] | | | [...] + + | BLOOD PRODUCT CODE | [id number] | | [facility] | | | | | SERVICES, | | | | | TRANSFUSION | | | | | MEDICINE | + + + + + + + + + + | Performing | Address | City/State/Zipcode | Phone Number | | Organization | | | | + + + + + | [facility] | [address] | [place] [address] | | | SERVICES, | [address] [...] [place] | [address] | [place], [place] | | | [facility] | [address] | [address] | | | TESTS | | | [...] - [place] | | | | | UQIN POINT OF | | | | | [...] BUTCHER | [address] | [place], [place] | | | QU[facility] POINT OF CARE | [address] | [address] | | | TESTS | | | [...] [facility] | [address] | [place] [address] | | | TAMIKA | BERTHA EWING [...] BUTCHER | [address] | [place], [place] | | | QU[facility] | [address] | [address] | | | TESTS | | | [...] | +---+---+ + +-------+ +---------+---+---------+ | thrombin [id number] unit topical Kit | Given | | 20,000 | | Abdomen | | [place] INTRAPROCEDURE PRN, | | 8 13:03 | Units | | | | Starting 09/13/17 at 1303, | | PDT | | | | | Until 09/13/17 at 1441 | | | | | | + +-------+ +---------+---+---------+ +---+---+ | | | +---+---+ in this encounter
--- OUTSIDE RECORDS SUMMARY | ~2017-11-22 | XMS | Encounter Summary ---
Demographics + + + | Address | [address] | | | [place] [address] | + + + | Home Phone [...] + + + | Author | [facility] | + + + | Organization | [facility] | + + + | Address | Unknown | + + + | Phone | Unavailable | + + + Support + + + + + | Name | Relationship | Address | Phone | + + + + + | MILLY NGUYEN | ECON | [address] | | | | | [place], | | | | | [place] [address] | | + + + + + | Holly Otoole ECON | Unknown | | + + + + + Care Team Providers + +------+ + | Care Second Cook And Baker Name | Role | Phone | + +------+ + | Jeremy Adrian MD | PCP | | + +------+ + Encounter Details +--------+ + + + + | Date | Type | Department | Care Team | Description | +--------+ + + + + | 10/10/ | Abstract | Urology at [facility] | Cristy Rubin MD | | | 2017 | | [address] | [address] | | | | | Mail Code: CH10U | [place], [place] | | | | | [facility] | [address] | | | | | and [address] | [phone] | | | | | Floor [place], [place] | | | | | | [address] | | | | | | [phone] | | | +--------+ + + + [...] + + | 12/20/ | Diagnostic | Car Repairer Pullman | Nils Woody, | | | 2017 | Visit | | [address] | | | | | | [address] | | | | | | [place] | | | | | | [address] | | | | | | | | +--------+ + + + + as of this encounter Visit Diagnoses Not on filein this encounter"
--- OUTSIDE RECORDS SUMMARY | ~2017-11-22 | XMS | Encounter Summary ---
Demographics + + + | Address | [address] | | | [place] [address] | + + + | Home Phone [...] + | MILLY NGUYEN | ECON | [address] | | | | | [place], | | | | | [place] [address] | | + + + + + | Holly Burrell | ECON | Unknown | | + + + + + Care Team Providers + +------+ + | Care Tube Drawer Name | Role | Phone | + +------+ + | Jeremy Adrian MD | PCP | | + +------+ + Encounter Details +--------+ + + + + | Date | Type | Department | Care Team | Description | +--------+ + + + + | 08/26/ | Procedure | Radiology/Imaging | | | | 2018 | Pass | Lab at [facility] [address] | | | | | | [address] | | | | | | Mailcode: CH3G | | | | | | [facility] | | | | | | and [address], 3rd | | | | | | Floor [place], [place] | | | | | | [address] | | | | | | [phone] | | | +--------+ + + + [...] + + | 12/20/ | Diagnostic | Inspector Filters | Nils Woody, | | | 2018 | Visit | | [facility] | | | | | | [address] | | | | | | [place], [place] | | | | | | [address] | | | | | | | | +--------+ + + + + as of this encounter Visit Diagnoses Not on filein this encounter"
--- OUTSIDE RECORDS SUMMARY | ~2017-11-22 | XMS | Encounter Summary ---
Demographics + + + | Address | [address] | | | [place] [address] | + + + | Home Phone [...] + | MILLY NGUYEN | ECON | [address] | | | | | [place], | | | | | [place] [address] | | + + + + + | Holyl Burrell | ECON | Unknown | | + + + + + Care Team Providers + +------+ + | Care Church History Professor Name | Role | Phone | + [...] + + + + | 09/13/ | Telephone | SOCIAL WORK | Nabila Cavanaugh | Social work | | 2018 | | AMBULATORY [address] | [address] | consultation | | | | Jimmy [facility] | [address] [place], | | | | | [facility] Mailcode: [facility] | [place] [address] | | | | | [place], [place] | | | | | | [address] | | | | | | [phone] | | | +--------+ + + + [...] + | 12/20/ | Diagnostic | Crown Attacher | Nils Woody, | | | 2017 | Visit | | [address] | | | | | | [address] | | | | | | [place], [place] | | | | | | [id number] | | | | | | | | +--------+ + + + + as of this encounter Visit Diagnoses Not on filein this encounter"
--- OUTSIDE RECORDS SUMMARY | ~2017-11-22 | XMS | Encounter Summary ---
Demographics + + + | Address | [address] | | | [place] [address] | + + + | Home Phone [...] + | MILLY NGUYEN | ECON | [address] | | | | | [place], | | | | | [place] [address] | | + + + + + | Holly Otoole ECON | Unknown | | + + + + + Care Team Providers + +------+ + | Care Ice Grinder Name | Role | Phone | + +------+ + | Jeremy Adrian MD | PCP | | + +------+ + Encounter Details +--------+ + + + + | Date | Type | Department | Care Team | Description | +--------+ + + + + | 11/07/ | Corrugated Box Machine Operator | Urology at [facility] | Cristy Rubin MD | Dysphagia, | | 2018 | | [address] | [address] | pharyngoesophageal | | | | Mail Code: CH10U | [place], [place] | phase (Primary Dx) | | | | [facility] | [address] | | | | | and | [phone] | | | | | Floor [place], [place] | | | | | | [address] | | | | | | [phone] | | | +--------+ + + + [...] + + | 12/20/ | Diagnostic | Shell Machine Operator | Nils Woody, | | | 2018 | Visit | | [address]ARATHI [address] | | | | | | [address] [facility] [facility] | | | | | | Rd [place], [place] | | | | | | [address] | | | | | | | [...]
--- OUTSIDE RECORDS SUMMARY | ~2017-11-22 | XMS | Encounter Summary ---
Demographics + + + | Address | [address] | | | [place] [address] | + + + | Home Phone | | + + + | Preferred Language | Unknown | + + + | Marital Status | | + + + | Latter Day Affiliation | LDS | + + + | Race | White | + + + | Ethnic Group | Not or | + + + Author + + + | Author | [facility] | + + + | Organization | [facility] | + + + | Address | Unknown | + + + | Phone | Unavailable | + + + Support + + + + + | Name | Relationship | Address | Phone | + + + + + | MILLY NGUYEN | ECON | [address] | | | | | [place], | | | | | [place] [address] | | + + + + + | Holly Otoole ECON | Unknown | | + + + + + Care Team Providers + +------+ + | Care Sidewalk Inspector Name | Role | Phone | + +------+ + | Jeremy Adrian MD | PCP | | + +------+ + Encounter Details +--------+ + + + + | Date | Type | Department | Care Team | Description | +--------+ + + + + | 08/25/ | Abstract | Urology at [facility] | Cristy Rubin MD | | | 2017 | | [address] | [address] | | | | | Mail Code: CH10U | [place], [place] | | | | | [facility] | [address] | | | | | and [address] | [phone] | | | | | Floor [place], [place] | | | | | | [address] | | | | | | [phone] | | | +--------+ + + + [...] + + | 12/20/ | Diagnostic | Blind Escort | Nils Woody, | | | 2017 | Visit | | [address] | | | | | | [address] | | | | | | Sal [place], [place] | | | | | | [address] | | | | | | | | +--------+ + + + + as of this encounter Visit Diagnoses Not on filein this encounter"
--- OUTSIDE RECORDS SUMMARY | ~2017-11-22 | XMS | Encounter Summary ---
Demographics + + + | Address | [address] | | | [place] [address] | + + + | Home Phone | | + + + | Preferred Language | Unknown | + + + | Marital Status | | + + + | Sabianism Affiliation | LDS | + + + [...] + | MILLY NGUYEN | ECON | [address] | | | | | [place], | | | | | [place] [address] | | + + + + + | Holly Otoole ECON | Unknown | | + + + + + Care Team Providers + +------+ + | Care Literature Professor Name | Role | Phone | + +------+ + | Jeremy Adrian MD | PCP | | + +------+ + Encounter Details +--------+ + + + + | Date | Type | Department | Care Team | Description | +--------+ + + + + | 09/07/ | Abstract | Urology at [facility] | Cristy Rubin MD | | | 2017 | | [address] | [address] | | | | | Mail Code: CH10U | [place], [place] | | | | | [facility] | [address] | | | | | and [address] | [phone] | | | | | Floor [place], [place] | | | | | | [address] | | | | | | [phone] | | | +--------+ + + + [...] + | 12/20/ | Diagnostic | Process Helper | Nils Woody, | | | 2017 | Visit | | [address] | | | | | | [address] | | | | | | Sal [place], [place] | | | | | | [address] | | | | | | | | +--------+ + + + + as of this encounter Visit Diagnoses Not on filein this encounter"
--- OUTSIDE RECORDS SUMMARY | ~2017-11-22 | XMS | Encounter Summary ---
Demographics + + + | Address | [address] | | | [place] [address] | + + + | Home Phone | | + + + | Preferred Language | Unknown | + + + | Marital Status | | + + + | Islam Affiliation | Unknown | + + + | Race | Unknown | + + + | Ethnic Group | Unknown | + + + Author + + + | Author | [facility] | + + + | Organization | [facility] | + + + | Address | Unknown | + + + | Phone | Unavailable | + + + Support + + +---------+ + | Name | Relationship | Address | Phone | + + +---------+ + | Yuki Nguyen | ECON | Unknown | | + + +---------+ + Care Team Providers + +------+ + | Care Facilities Maintenance Supervisor Name | Role | Phone | + +------+ + PCP | Unavailable | + +------+ + Encounter Details +--------+ + + + + | Date | Type | Department | Care Team | Description | +--------+ + + + + | 10/13/ | Telephone | [facility] | [facility] | | | 2018 | | Hematology and | MEILI Harris | | | | | Oncology [address] | | | | | | [address] | | | | | | [place] | | | | | | [address] | | | | | | [phone] | | | +--------+ + + + [...] [place] | | | | | | [address] | | | | | | | | +--------+---------+ + + + as of this encounter Visit Diagnoses Not on filein this encounter"
--- OUTSIDE RECORDS SUMMARY | ~2017-11-22 | XMS | Encounter Summary ---
Demographics + + + | Address | [address] | | | [place] [address] | + + + | Home Phone | | + + + | Preferred Language | Unknown | + + + | Marital Status | | + + + | Restoration Affiliation | Unknown | + + + | Race | Unknown | + + + | Ethnic Group | Unknown | + + + Author + + + | Author | [facility] | + + + | Organization | [facility] | + + + | Address | Unknown | + + + | Phone | Unavailable | + + + Support + + +---------+ + | Name | Relationship | Address | Phone | + + +---------+ + | Yuki Nguyen | ECON | Unknown | | + + +---------+ + Care Team Providers + +------+ + | Care Clock Repairer Name | Role | Phone | [...] | | | Cancer of | [facility] | | | | | kidney, | Rangaswamy | [address] | | | | | right (HCC) | MD [address] | [address] | | | | | Procedures | [address] | [place] | | | | | [address] head [address] | [address]VE | [address] | | | | | [address] | [place], | Phone: | | | | | contrast | [place] [address] | [phone] | | | | | | Phone: | Fax: | | | | | | [phone] | [phone] | | | | | | Fax: | | | | | | | [phone] | | + +--------+ + + + + Encounter Details +--------+ + + + + | Date | Type | Department | Care Team | Description | +--------+ + + + + | 10/13/ | Orders Only | [facility] | [place], | Cancer of kidney, | | 2018 | | Hematology and | Stephanie Dubon MD | right (HCC) (Primary | | | | Oncology [address] | Dx) | | | | [address] | [place] | | | | | [place] | [address] | | | | | [address] | | | | | | [phone] | | | +--------+ + + + [...] [place] | | | | | | [address] | | | | | | | [...]
--- OUTSIDE RECORDS SUMMARY | ~2017-11-22 | XMS | Encounter Summary ---
Demographics + + + | Address | [address] | | | [place] [address] | + + + | Home Phone | | + + + | Preferred Language | Unknown | + + + | Marital Status | | + + + | Christian Affiliation | LDS | + + + | Race | White | + + + | Ethnic Group | Not or | + + + Author + + + | Author | [facility] | + + + | Organization | [facility] | + + + | Address | Unknown | + + + | Phone | Unavailable | + + + Support + + + + + | Name | Relationship | Address | Phone | + + + + + | MILLY NGUYEN | ECON | [address] | | | | | [place], | | | | | [place] [address] | | + + + + + | Holly Otoole ECON | Unknown | | + + + + + Care Team Providers + +------+ + | Care Field Sales Agent Name | Role | Phone | + +------+ + | Jeremy Adrian MD | PCP | | + +------+ + Encounter Details +--------+---------+ + + + | Date | Type | Department | Care Team | Description | +--------+---------+ + + + | 07/12/ | Office | Urology at [facility] | Alison Garcia | Renal cell carcinoma | | 2018 | Visit | [address] | [address] | of right kidney | | | | Mail Code: CH10U | [address] | (HCC) (Primary Dx) | | | | [facility] | [place], [place] | | | | | and | [address] | | | | | Floor [place], [place] | [phone] | | | | | [address] | | | | | | [phone] | | | +--------+---------+ + + + [...] grade 3, clear cell renal cell carcinoma. [id number]. Patient is doing well. No longer requiring [...] He was seen by medical oncology in [place], [place] (Dr. Quiroz) two days ago. He [...] Recheck BMP tomorrow - [facility] in [place], [place] 2. Follow up with medical oncology for treatment of liver and lung lesions. 3. Return as needed. Alison Garcia PA-C Physician Teacher Adult Education Department of Urology [facility] in this encounter Plan of Treatment +--------+ + + + + | Date | Type | Specialty | Care Team | Description | +--------+ + + + + | 12/20/ | Diagnostic | Plan Examiner | Nils Woody, | | | 2018 | Visit | | Keyla [facility] [address] | | | | | | SAR[address] [facility] | | | | | | [place], [place] | | | | | | [address] | | | | | | | [...]
--- OUTSIDE RECORDS SUMMARY | ~2017-11-22 | XMS | Encounter Summary ---
Demographics + + + | Address | [address] | | | [place] [address] | + + + | Home Phone | | + + + | Preferred Language | Unknown | + + + | Marital Status | | + + + | Samaritan Affiliation | LDS | + + + | Race | White | + + + | Ethnic Group | Not or | + + + Author + + + | Author | [facility] | + + + | Organization | [facility] | + + + | Address | Unknown | + + + | Phone | Unavailable | + + + Support + + + + + | Name | Relationship | Address | Phone | + + + + + | MILLY NGUYEN | ECON | [address] | | | | | [place], | | | | | [place] [address] | | + + + + + | Holly Otoole ECON | Unknown | | + + + + + Care Team Providers + +------+ + | Care Boom Operator Name | Role | Phone | + +------+ + | Jeremy Adrian MD | PCP | | + +------+ + Encounter Details +--------+ + + + + | Date | Type | Department | Care Team | Description | +--------+ + + + + | 08/25/ | Supervisor Fabrication And Assembly | Urology at [facility] | Alison Garcia | Renal mass (Primary | | 2018 | | [address] | [address] | Dx); Bladder mass | | | | Mail Code: CH10U | [address] | | | | | [facility] | [place], [place] | | | | | and | [address] | | | | | Floor [place], [place] | [phone] | | | | | [address] | | | | | | [phone] | | | +--------+ + + + [...] + + | 12/20/ | Diagnostic | Pediatric Speech Therapist | Nils Woody, | | | 2017 | Visit | | [address] | | | | | | [address] [facility] | | | | | | Sal [place], [place] | | | | | | [address] | | | | | | | [...] Note | + + | Service Account, [employer] English Res In Interface - 08/31/2017 5:20 PM [...]
--- OUTSIDE RECORDS SUMMARY | ~2017-11-22 | XMS | Encounter Summary ---
Demographics + + + | Address | [address] | | | [place] [address] | + + + | Home Phone | | + + + | Preferred Language | Unknown | + + + | Marital Status | | + + + | Congregation Affiliation | Unknown | + + + | Race | Unknown | + + + | Ethnic Group | Unknown | + + + Author + + + | Author | [facility] | + + + | Organization | [facility] | + + + | Address | Unknown | + + + | Phone | Unavailable | + + + Support + + +---------+ + | Name | Relationship | Address | Phone | + + +---------+ + | Yuki Nguyen | ECON | Unknown | | + + +---------+ + Care Team Providers + +------+ + | Care Nursing Project Coordinator Name | Role | Phone | + +------+ + | Jeremy Adrian MD | PCP | | + +------+ + Reason for Visit +--------+ + | Reason | Comments | +--------+ + | Other | IMAGING [facility] | +--------+ + Encounter Details +--------+ + + + + | Date | Type | Department | Care Team | Description | +--------+ + + + + | 10/13/ | Documentati | [facility] | Gabriella, | Other (IMAGING | | 2018 | on Only | Hematology and | Stephanie Dubon MD | [facility] | | | | Oncology [address] | ) | | | | [address] | [place] | | | | | [place] | [address] | | | | | [address] | | | | | | [phone] | | | +--------+ + + + [...] [place] | | | | | | [address] | | | | | | | | +--------+---------+ + + + as of this encounter Visit Diagnoses Not on filein this encounter"
--- OUTSIDE RECORDS SUMMARY | ~2017-11-22 | XMS | Encounter Summary ---
Demographics + + + | Address | [address] | | | [place] [address] | + + + | Home Phone [...] + | MILLY NGUYEN | ECON | [address] | | | | | [place], | | | | | [place] [address] | | + + + + + | Holly Otoole ECON | Unknown | | + + + + + Care Team Providers + +------+ + | Care Cotton Ball Machine Tender Name | Role | Phone | + +------+ + | Jeremy Adrian MD | PCP | | + +------+ + Encounter Details +--------+ + + + + | Date | Type | Department | Care Team | Description | +--------+ + + + + | 10/07/ | Abstract | Urology at [facility] | Cristy Rubin MD | | | 2017 | | [address] | [address] | | | | | Mail Code: CH10U | [place], [place] | | | | | [facility] | [address] | | | | | and [address] | [phone] | | | | | Floor [place], [place] | | | | | | [address] | | | | | | [phone] | | | +--------+ + + + [...] + + | 12/20/ | Diagnostic | Communications Project Manager | Nils Woody, | | | 2017 | Visit | | [address] | | | | | | [address] | | | | | | [place] | | | | | | [address] | | | | | | | | +--------+ + + + + as of this encounter Visit Diagnoses Not on filein this encounter"
--- OUTSIDE RECORDS SUMMARY | ~2017-11-22 | XMS | Encounter Summary ---
Demographics + + + | Address | [address] | | | [place] [address] | + + + | Home Phone | | + + + | Preferred Language | Unknown | + + + | Marital Status | | + + + | Jewish Affiliation | Unknown | + + + | Race | Unknown | + + + | Ethnic Group | Unknown | + + + Author + + + | Author | [facility] | + + + | Organization | [facility] | + + + | Address | Unknown | + + + | Phone | Unavailable | + + + Support + + +---------+ + | Name | Relationship | Address | Phone | + + +---------+ + | Yuki Nguyen | ECON | Unknown | | + + +---------+ + Care Team Providers + +------+ + | Care Blending Technician Name | Role | Phone | [...] + + | 10/13/ | Documentati | [facility] | Gabriella, | Other (IMAGING | | 2018 | on Only | Hematology and | Stephanie Dubon MD | [facility] | | | | Oncology [address] | ) | | | | [address] | [place] | | | | | [place] | [address] | | | | | [address] | | | | | | [phone] | | | +--------+ + + + [...] [place] | | | | | | [address] | | | | | | | | +--------+---------+ + + + as of this encounter Visit Diagnoses Not on filein this encounter"
--- OUTSIDE RECORDS SUMMARY | ~2017-11-22 | XMS | Clinical Summary ---
Demographics + + + | Address | [address] | | | [place] [address] | + + + | Home Phone [...] + | MILLY NGUYEN | ECON | [address] | | | | | [place], | | | | | [place] [address] | | + + + + + | Holly Burrell | ECON | Unknown | | + + + + + Care Team Providers + +------+ + | Care Classification Case Manager Name | Role | Phone | + +------+ + | Jeremy Adrian MD | PP | | + +------+ + Source Comments JO-ANN is fully live on both EpicCare Ambulatory and EpicCare InPatient.[facility] Allergies + + + + + + [...] graft done by vascular. | | Has BROOMCORN PRESS FEEDER. 6.3 L crystalloid given during the case-no blood | | products given (1200 mL EBL). Did well overnight HD and with pain | | control.-Continue motta per urology -HM BROOMCORN PRESS FEEDER-CLD until INTERMEDIATE PROJECT MANAGER | | eval/uro approval-Closely monitor hemodynamics-IMC status | + + + + + | Dysphagia | 09/13/2017 | + + + + + | Last Assessment & Plan: Has had issues with swallowing and | | dysphagia for quite some time. Crushes all meds and takes them | | with applesauce. INTERMEDIATE PROJECT MANAGER consult and recommend barium | | swallow.-CLD-Barium swallow today-INTERMEDIATE PROJECT MANAGER following | + + + + + [...] Assessment & Plan: Well controlled with valsartan SCRAPE GATHERER. | | -Hold in post-operative period | [...] + + + + | 11/07/ | [facility] | | Cristy Rubin MD | Dysphagia, [...] + + + + | 09/17/ | [facility] | | Eder Gann, | Tumor of [...] | | | original. | | | [place] | | | Health and | | [...] GibbonsMRN: | | | | | | [id number] | | | ission | | | [...] | | Call: JO-ANN | | | sanding line operator | | | [phone] | | | [phone] | | | after hours | | | and ask | | | for the | | | Surgery | | | Physician | | | Senior Administrative Support, | | | Nurse or | | [...] | | Urology at | | | [facility] | | | [phone] | | | 0 Urology | | [...] | | | PGY-1Pg | | | [id number] | | | [id number] | | | [address] | | | Pk | | | [id number] | | | [place], | | | [place] | | | [phone] | | | [phone] | +---+ + [...] | | | | | | insulin ([facility]); | | | | | | Gastroesophageal [...] | 08/25/ | Telephone | | Cristy Ruibn MD | Care Management | | 2017 | | | | | +--------+ +---+ + + | 08/25/ | [facility] | | Alison Garcia | Renal mass [...] +--------+ +---+ + + | 08/23/ | [facility] | | Alison Gracia | Renal mass, right | | 2017 [...] | 2017 | Visit | | Keyla [facility] [address] | | | | | | [address] | | | | | | [address] [place], [place] | | | | | | [address] | | | | | | | [...] | | | | | 2017 | /[id number] | | Papi Albarran MD | | | | | | [id number] | | | | | | | | 37 / | + +------+--------+ +--------+--------+--------+ | Nucleus Cochlear | | Right: | COCHLEAR | | 06/24/ | [id number] | | ImplantImplanted: Qty: 1 on | | Ear | GLENN | | 2018 | /[id number] | | 08/30/2016 by Papi Albarran | | | | | | [id number] | | EMD | | | | | | 50 / | + +------+--------+ +--------+--------+--------+ | Graft Vascular 20cm 20mm | | Right: | [facility] | | 07/20/ | [id number] | | Standard Wall [employer] | | | [employer] | | 2022 | 020 | | 20cm Sterile - | | Abdome | | | | /[id number] | | [id number]: Qty: 1 on | | n | [...] | + +--------+ + + + | ND EVAL,ORAL & | Routin | 10/21/2017 | [...] | + +---------+ + + | NON [facility] | | | | + +---------+ + + [facility] - CBC ONLY (10/06/2017 7:32 AM) + + + + + | Component | Value | Ref Range | Performed At | + + + + + | WHITE CELL COUNT | 6.09 | 3.50 - 10.80 K/cu mm | [facility] | | | | [...] 45.1 | 35.1 - 46.3 fL | [facility] | | | | | SERVICES, | | | | | [facility] | | [facility] + | | | | | HEALING | + + + + + | PLATELET COUNT | 451 (H) | 150 - 400 K/cu mm | [facility] | | | | | SERVICES, | | | | | [facility] | | | | | [facility]ALTH + | | | | | HEALING | + + + + + | MPV | 10.7 | 9.7 - 12.3 fL | [facility] | | | | [...] | + + + + + | [facility] | [address] | [place] [address] | | | SERVICES, [facility] | | | | | HEALTH + HEALING | | | | + + + + + CH - COMPLETE METABOLIC SET (10/06/2017 7:32 AM) + + + + + | Component | Value | Ref Range | Performed At | + + + + + | GLUCOSE, PLASMA | 81 | 70 - 99 mg/dL | [facility] | | (LAB) | | | SERVICES, | | | | | [facility] | | | | | HEALTH + | | | | | HEALING | + + + + + | BUN, PLASMA (LAB) | 20 | 6 - 20 mg/dL | [facility] | | | | | SERVICES, | | | | | [facility] | | | | | HEALTH + | | | | | HEALING | + + + + + | CREATININE PLASMA | 1.40 (H) | 0.70 - 1.30 mg/dL | [facility] | | (LAB) | | | SERVICES, | | | | | [facility] FOR | | | | | HEALTH + | | | | | HEALING | + + + + + | SODIUM, PLASMA (LAB) | 137 | 134 - 143 mmol/L | [facility] | | | | [...] | + + + + + | [facility] | [address] | [place] [address] | | | [facility] FOR | | | | | [...] | Antibody Screen | Negative | | [facility] | | | | | [facility], | | | | | TRANSFUSION | | | | | MEDICINE | + + + + + + + | Specimen | + + | Blood - Blood | + + + + + + + | Performing | Address | City/State/Zipcode | Phone Number | | Organization | | | | + + + + + | [facility] | [address] | [place] [address] | | | SERVICES, | [address] [...] | + + + + + | [facility] | [address] | [place] [address] | | | TAMIKA | [address] [...] | + + + + + | [facility] | [address] | [place], [place] | | | BLACK ALZADA OF [facility] | [address] | [address] | | | TESTS | | | [...] | 3.50 - 10.80 K/cu mm | [facility] | | | | [...] [facility] | [address] | [place] [address] | | | SERVICES, CORE | [address] [...] | + + + + + | [facility] | [address] | [place] [address] | | | SERVICES, CORE | [address] | | | + + + + + MAGNESIUM, PLASMA (09/17/2017 4:50 AM)Only the most recent of 4 results within the time joesph dudley is included. + +-------+ + + | Component | Value | Ref Range | Performed At | + +-------+ + + | MAGNESIUM,PLASMA | 2.0 | 1.6 - 2.6 mg/dL | [facility] | | | | [...] | + + + + + | [facility] | [address] | [place] [address] | | | SERVICES, CORE | [address] | | | + + + + + MODIFIED BARIUM SWALLOWING (09/14/2017 3:00 PM) + + + | Narrative | Performed At | + + + | EXAM: Modified Barium Swallow HISTORY: INTERMEDIATE PROJECT MANAGER | JO-ANN | | recommended. Patient with [...] EXAM: Modified | | Barium Swallow HISTORY: INTERMEDIATE PROJECT MANAGER recommended. Patient with problems swallowing. Recent | [...] Note | + + | Service Account, [email or web address] Res In Interface - 09/15/2017 10:05 AM [...] >60 mL/min | [facility] | | [address] | | | SERVICES, CORE | + +---------+ + + | EGFR NON | >60 | >60 mL/min | [facility] | | -[place] | | | SERVICES, CORE | + [...] | | (LAB) | | | SERVICES, [facility] | + +---------+ + + | CALCIUM, PLASMA | 7.4 (L) | 8.6 - 10.2 mg/dL | [facility] | | (LAB) | | | SERVICES, CORE | + +---------+ + + | CALCIUM(ALB | 8.8 | 8.6 - 10.2 mg/dL | [facility] | | CORRECTED) | | | [facility], [facility] | + +---------+ + + | ALBUMIN, [...] | + + + + + | [facility] | [address] | [place] [address] | | | SERVICES, CORE | [address] | | | + + + + + X-RAY PORTABLE CHEST 1 VIEW (09/13/2017 3:54 PM) + + + | Narrative | Performed At | + + + | EXAM: ND CHEST 1 VIEW HISTORY: verify central line [...] Interface - 09/13/2017 3:54 PM PDT EXAM: ND CHEST 1 | | VIEW HISTORY: verify [...] bleeding was controlled with the argon beam service delivery supervisor. Dr. Young | | | was consulted [...] case. Alex Rubin MD | | | Dental Laboratory Technician Apprentice Department of Urology [facility] | | | [place] | | + + + ABG-FULL ABL, [...] [facility]ER | [address] | [place], [place] | | | TORSTEN TSAI [facility] | [address] | [address] | | | TESTS | | | | + + + + + SURGICAL PATHOLOGY (09/13/2017 12:02 PM) + + + + + | Component | Value | Ref Range | Performed At | + + + + + | Clinical History | N28.89 (ICD-10-CM) - | | [facility] | | | 593.9 (ICD-9-CM) - RENAL | | OF PATHOLOGY | | | MASS | | | + + + + + | Final Pathologic | A. Right kidney and | | [facility] | | Diagnosis | [...] | SYNOPTIC REPORTS | KIDNEY: | | [facility] | | | Nephrectomy (Kidney [...] | Received are 6 specimens | | [facility] | | | fresh in containers | | OF PATHOLOGY | | | labeled with the | | | | | patient's name (initials | | | | | DG) and medical record | | | | | number [id number]. | | | | | Kidney, Right [...] | =blackSubmitted: | | | | | Grain Oilseed Or Pasture Grower A1: Renal | | | | | [...] 9 | | | | | o'clock. Grain Oilseed Or Pasture Grower | | | | | sections are [...] Intraoperative use | Frozen section | | [facility] | | only - Final [...] | ANCILLARY | Analyte specific | | [facility] | | INFORMATION | [...] | | | | | determined by [facility] | | | | | [...] | + + + + + | [facility] | [address] | [place] [address] | | | PATHOLOGY | [address] [...] | -1 RED BLOOD CELL | | [facility] | | | ADENINE-SALINE ADDED | | SERVICES, | | | LEUKOCYTE | | TRANSFUSION | | | | | MEDICINE | + + + + + | PRODUCT UNIT # | [id number] | | [facility] | | | [...] + + + | EXPIRATION DATE | [id number] | | [facility] | | | [...] + + | BLOOD PRODUCT CODE | [id number] | | [facility] | | | | | SERVICES, | | | | | TRANSFUSION | | | | | MEDICINE | + + + + + + + + + + | Performing | Address | City/State/Zipcode | Phone Number | | Organization | | | | + + + + + | [facility] | [address] | [place] [address] | | | TAMIKA | [address] [...] | | | present Attending Name: DEDRICK BUROGS Performed by Resident | | | Name: [...] | + + + + + | [facility] | [address] | [place] [address] | | | SERVICES, | [address] [...] DEPT OF | [address] | [place], [place] | | | CARDIOLOGY | [address] | [address] | | + + + + + [...] | + + + + + | [facility] | [address] | [place] [address] | | | SERVICES, CORE | [address] [...] >60 mL/min | [facility] | | [place] | | | SERVICES, CORE | + +---------+ + + | EGFR NON | 55 (L) | >60 mL/min | [facility] | | -[place] | | | TAMIKA, CORE | + [...] | + + + + + | [facility] | [address] | [place] [address] | | | TAMIKA, XENIA | [address] | | | + + + + + FRANCI ALCARAZ ONLY (09/01/2017 11:13 AM) + + + + + | Component | Value | Ref Range | Performed At | + + + + + | COLOR(UR) | Yellow | | [facility] | | | | | TAMIKA CORE | + + + + + | APPEARANCE | Sl.Cloudy | | [facility] | | | | | TAMIKA, [...] 1.012Comment: Specific | 1.005 - 1.030 | [facility] | | | Jeanerette performed by | | XENIA LUNDBERG | [...] [facility] | [address] | [place] [address] | | | XENIA LUNDBERG | [address] | | | + + + + + URINE, MICROSCOPIC EXAM (09/01/2017 11:13 AM) + +---------+ + + | Component | Value | Ref Range | Performed At | + +---------+ + + | RED CELLS | 17 (H) | 0 - 3 /hpf | [facility] | | | | | SERVICES, [...] CASTS | 0 | <=0 /lpf | [facility] | | | | | SERVICES, CORE | + +---------+ + + | TRIPLE P04 CRYSTALS | None | None /hpf | [facility] | | | | | SERVICES, CORE | + +---------+ + + | CALCIUM OXALATE JEFFERSON | None | None /hpf | [facility] | | | | | SERVICES, CORE | + +---------+ + + | URIC ACID CRYSTALS | None | None /hpf | [facility] | | | | | SERVICES, [...] | + + + + + | [facility] | [address] | [place] [address] | | | SERVICES, CORE | TESSIE [...] [facility] | [address] | [place] [address] | | | SERVICES, CORE | TESSIE [...] | [facility] | | considered for monitoring terminal worker glycemic control in patients with: | LABORATORY [...] | + + + + + | [facility] | [address] | [place] [address] | | | SERVICES, SPECIAL | [address] [...] POINT | [address] | [place] [address] | | | OF CARE TESTS | [...] | PPO | +1- | [address] [address] [place] | | SHIELD | E [employer] | x | | [address]38 | [place], [place] | | | | | | | [address] | + +--------+ +------+ + + + [...] | | | christos | | | [address]14 | [address] | + +--------+ +--------+ + +
--- OUTSIDE RECORDS SUMMARY | ~2017-11-22 | XMS | Encounter Summary ---
Demographics + + + | Address | [address] | | | [place] [address] | + + + | Home Phone | | + + + | Preferred Language | Unknown | + + + | Marital Status | | + + + | Druze Affiliation | Unknown | + + + | Race | Unknown | + + + | Ethnic Group | Unknown | + + + Author + + + | Author | [facility] | + + + | Organization | [facility] | + + + | Address | Unknown | + + + | Phone | Unavailable | + + + Support + + +---------+ + | Name | Relationship | Address | Phone | + + +---------+ + | Yuki Nguyen | ECON | Unknown | | + + +---------+ + Care Team Providers + +------+ + | Care Academic Support Center Director Name | Role | Phone | + +------+ + PCP | Unavailable | + +------+ + Encounter Details +--------+ + + + + | Date | Type | Department | Care Team | Description | +--------+ + + + + | 10/10/ | Orders Only | [facility] | Tequila Griffin RPH | Cancer of kidney, | | 2018 | | [address] | | right (HCC) (Primary | | | | [place] | | Dx) | | | | [address] | | | +--------+ + + + [...] [place] | | | | | | [address] | | | | | | | | +--------+---------+ + + + as of this encounter Visit Diagnoses + + | Diagnosis | + + | Cancer of kidney, right (HCC) - Primary | + +"
--- OUTSIDE RECORDS SUMMARY | ~2017-11-22 | XMS | Encounter Summary ---
Demographics + + + | Address | [address] | | | [place] [address] | + + + | Home Phone | | + + + | Preferred Language | Unknown | + + + | Marital Status | | + + + | Jew Affiliation | Unknown | + + + | Race | Unknown | + + + | Ethnic Group | Unknown | + + + Author + + + | Author | [facility] | + + + | Organization | [facility] | + + + | Address | Unknown | + + + | Phone | Unavailable | + + + Support + + +---------+ + | Name | Relationship | Address | Phone | + + +---------+ + | Yuki Nguyen | ECON | Unknown | | + + +---------+ + Care Team Providers + +------+ + | Care Choir Member Name | Role | Phone | + [...] + + | 09/01/ | Documentati | [facility] | Gabriella, | Other (MARINA WU, | | 2018 | on Only | Hematology and | Stephanie Dubon MD | OSIEL) | | | | Oncology [address] | | | | | [address] | [place] | | | | | [place] | [address] | | | | | [address] | | | | | | [phone] | | | +--------+ + + + [...] [place] | | | | | | [address] | | | | | | | | +--------+---------+ + + + as of this encounter Visit Diagnoses Not on filein this encounter"
--- OUTSIDE RECORDS SUMMARY | ~2017-11-22 | XMS | Encounter Summary ---
Demographics + + + | Address | [address] | | | [place] [address] | + + + | Home Phone | | + + + | Preferred Language | Unknown | + + + | Marital Status | | + + + | Restorationism Affiliation | LDS | + + + | Race | White | + + + | Ethnic Group | Not or | + + + Author + + + | Author | [facility] | + + + | Organization | [facility] | + + + | Address | Unknown | + + + | Phone | Unavailable | + + + Support + + + + + | Name | Relationship | Address | Phone | + + + + + | MILLY NGUYEN | ECON | [address] | | | | | [place], | | | | | [place] [address] | | + + + + + | Holly Burrell | ECON | Unknown | | + + + + + Care Team Providers + +------+ + | Care Chimney Builder Name | Role | Phone | + [...] | consultation | | | | [facility] | [address] [place], | | | | | [facility] Mailcode: [facility] | [place] [address] | | | | | [place], [place] | | | | | | [address] | | | | | | [phone] | | | +--------+ + + + [...] + + | 12/20/ | Diagnostic | Sales Operations Specialist | Nils Woody, | | | 2017 | Visit | | [address] | | | | [address] | | | | | | [place], [place] | | | | | | [address] | | | | | | | | +--------+ + + + + as of this encounter Visit Diagnoses Not on filein this encounter"
--- OUTSIDE RECORDS SUMMARY | ~2017-11-22 | XMS | Encounter Summary ---
Demographics + + + | Address | [address] | | | [place] [address] | + + + | Home Phone | | + + + | Preferred Language | Unknown | + + + | Marital Status | | + + + | Sabianism Affiliation | LDS | + + + | Race | White | + + + | Ethnic Group | Not or | + + + Author + + + | Author | [facility] | + + + | Organization | [facility] | + + + | Address | Unknown | + + + | Phone | Unavailable | + + + Support + + + + + | Name | Relationship | Address | Phone | + + + + + | MILLY NGUYEN | ECON | [address] | | | | | [place], | | | | | [place] [address] | | + + + + + | Holly Burrell | ECON | Unknown | | + + + + + Care Team Providers + +------+ + | Care Meter Changes Records Clerk Name | Role | Phone | [...] Therapy | Dysphagia, | Mario R, | [facility] [address] | | | | | unspecified | [address] | [address] | | | | | type | [address] | Mail Code: | | | | | Procedures | [address] | [facility] | | | | | SPEECH | [place], [place] | for Health | | | | | THERAPY | [address] | and Healing, | | | | | REFERRAL | Phone: | [address]th Floor | | | | | | [phone] | [place], [place] | | | | | | Fax: | [address] | | | | | | [phone] | Phone: | | | | | | | [phone] | | | | | | | Fax: | | | | | | | [phone] | + +--------+ + + + + Encounter Details +--------+ + + + + | Date | Type | Department | Care Team | Description | +--------+ + + + + | 10/21/ | Diagnostic | Otolaryngology | Rm, | | | 2018 | Visit | Speech Therapy | AARON Ramires [address] | | | | | Services at [facility] | [address] | | | | | [address] | [address] [place], [place] | | | | | [facility] | [address] | | | | | Mailcode: PV01 | | | | | | Physician's Mick | | | | | | [place], [place] | | | | | | [address] | | | | | | [phone] | | | +--------+ + + + [...] may be different from the original. Clinic: [facility] Referring Physician: Mario Guardado MD [address] [place] [address] Authorizing provider: Cristy Delarosa MD PCP: Jeremy [...] history of DM2 (diabetes mellitus, type 2) ([facility]); Esophageal strictu re; GERD (gastroesophageal reflux disease); Hyperlipidemia; Hypertension; Post-polio syndrom e; and SNHL (sensorineural hearing loss). Pt has a past surgical history that includes inner ear surgery (1975); tonsillectomy and a denoidectomy; appendectomy; and cochlear implant (Bilateral, 2016). DIETARY STATUS: Current diet: The patient is currently taking ground and pureed foods and any liquids by [facility]. Feeding tube status: The patient does not [...] SOCIAL HISTORY: He is and lives in [place], [place]. COMMUNICATION, SPEECH & RESPIRATORY STATUS: The [...] he wants to continue to drive to [facility] for appointment of if he wants to follow up with his previous ENT locally and continue swallow treatment/work-up there. I encouraged him to do what he is most comfortable with but emphasized the importance of follow-up with an EVENT PLANNER, particularly because he feels his swallow has [...] you for this consult. Keyla Abdalla M.S. CF-EVENT PLANNER Speech Pathology Clinical Fellow [facility] Otolaryngology, Head and Neck Surgery [facility] [place] in this encounter Plan of Treatment +--------+ + + + + | Date | Type | Specialty | Care Team | Description | +--------+ + + + + | 12/20/ Diagnostic | Utility Bill Collector | Nils Woody, | | | 2018 | Visit | | [address]RET[address]EN [address] | | | | | [address] [place] | | | | | | [place], [place] | | | | | | [address] | | | | | | | | +--------+ + + + + as of this encounter Procedures + +--------+ + + + | Procedure Name | Priori | Date/Time | Associated Diagnosis | Comments | | | ty | | | | + +--------+ + + + | MS EVAL,ORAL & | Routin | 10/21/2017 | [...]
--- OUTSIDE RECORDS SUMMARY | ~2017-11-22 | XMS | Encounter Summary ---
Demographics + + + | Address | [address] | | | [place] [address] | + + + | Home Phone | | + + + | Preferred Language | Unknown | + + + | Marital Status | | + + + | Jew Affiliation | Unknown | + + + | Race | Unknown | + + + | Ethnic Group | Unknown | + + + Author + + + | Author | [facility] | + + + | Organization | [facility] | + + + | Address | Unknown | + + + | Phone | Unavailable | + + + Support + + +---------+ + | Name | Relationship | Address | Phone | + + +---------+ + | Yuki Nguyen | ECON | Unknown | | + + +---------+ + Care Team Providers + +------+ + | Care District Plant Engineer Name | Role | Phone | [...] + + | 10/06/ | Documentati | [facility] | Gabriella, | Other (C/N, LJossue | | 2018 | on Only | Hematology and | Stephanie Dubon MD | [facility] [place], | | | | Oncology [address] | [place] ) | | | | [address] | [place] | | | | | [place] | [address] | | | | | [address] | | | | | | [phone] | | | +--------+ + + + [...] [place] | | | | | | [address] | | | | | | | | +--------+---------+ + + + as of this encounter Visit Diagnoses Not on filein this encounter"
--- OUTSIDE RECORDS SUMMARY | ~2017-11-22 | XMS | Encounter Summary ---
Demographics + + + | Address | [address] | | | [place] [address] | + + + | Home Phone | | + + + | Preferred Language | Unknown | + + + | Marital Status | | + + + | Sabianism Affiliation | Unknown | + + + | Race | Unknown | + + + | Ethnic Group | Unknown | + + + Author + + + | Author | [facility] | + + + | Organization | [facility] | + + + | Address | Unknown | + + + | Phone | Unavailable | + + + Support + + +---------+ + | Name | Relationship | Address | Phone | + + +---------+ + | Yuki Nguyen | ECON | Unknown | | + + +---------+ + Care Team Providers + +------+ + | Care Show Design Supervisor Name | Role | Phone | [...] + + | 10/31/ | Emergency | [facility] | Katalina Bernal, | Other dysphagia | | 2018 | | [facility] | DO [address] | (Primary Dx) | | | | Emergency Department | [place] [address] | | | | | [address] | [phone] | | | | | [place] [address] | | | | | | [phone] | | | +--------+ + + + [...] | | | | | | right ([facility]) | | | | | | + [...] [place] | | | | | | [address] | | | | | | | [...] + + + + + | Specific [place], [place]A | 1.006 | 1.002 - 1.030 [...] | BILIRUBIN | NEGATIVE | NEGATIVE | [facility] | + + + + + | GLUCOSE | >500 (A)Comment: Testing | NEGATIVE mg/dL | [facility] | | | performed at [facility] | | | | | [address];[place], [place] | | | | | [address] | | | + + + + + + + | Specimen | + + | Urine, Clean Catch | + + + + + + + | Performing | Address | City/State/Zipcode | Phone Number | | Organization | | | | + + + + + | [facility] | [address] | [place] [address] | | + + + + + Lipase (10/31/2017 6:33 PM) + + + + + | Component | Value | Ref Range | Performed At | + + + + + | LIPASE | 146Comment: Testing | 73 - 393 U/L | [facility] | | | performed at [facility];[address];[place] | | | | | [address] | | | + + + + + + + | Specimen | + + | Blood | + + + + + + + | Performing | Address | City/State/Zipcode | Phone Number | | Organization | | | | + + + + + | [facility] | [address] | [place] [address] | | + + + + + aPTT (10/31/2017 6:33 PM) + + + + + | Component | Value | Ref Range | Performed At | + + + + + | APTT | 30Comment: Testing | 23 - 32 seconds | [facility] | | | performed at [facility];[address];[place] | | | | | [address] | | | + + + + + + + | Specimen | + + | Blood | + + + + + + + | Performing | Address | City/State/Zipcode | Phone Number | | Organization | | | | + + + + + | [facility] | [address] | [place] [address] | | + + + + + Protime (10/31/2017 6:33 PM) + + + + + | Component | Value | Ref Range | Performed At | + + + + + | INR | 1.0Comment: REFERENCE | | [facility] | | | RANGE:0.9 - [...] | | | | | performed at [facility];[address] | | | | | [facility];[place] | | | | | [address] | | | + + + + + + + | Specimen | + + | Blood | + + + + + + + | Performing | Address | City/State/Zipcode | Phone Number | | Organization | | | | + + + + + | [facility] | [address] | [place] [address] | | + + + + + Magnesium (10/31/2017 6:33 PM) + + + + + | Component | Value | Ref Range | Performed At | + + + + + | MAGNESIUM | 2.5 (H)Comment: Testing | 1.7 - 2.4 mg/dL | [facility] | | | performed at [facility];[address] | | | | | [address];[place], [place] | | | | | [address] | | | + + + + + + + | Specimen | + + | Blood | + + + + + + + | Performing | Address | City/State/Zipcode | Phone Number | | Organization | | | | + + + + + | [facility] | [address] | [place] [address] | | + + + + + Comprehensive metabolic panel (10/31/2017 6:33 PM) + + + + + | Component | Value | Ref Range | Performed At | + + + + + | SODIUM | 139 | 135 - 145 mmol/L | [facility] | + + + + + | POTASSIUM | 4.2 | 3.5 - 4.9 mmol/L | [facility] | + + + + [...] 23 | 8 - 25 mg/dL | [facility] | + + + + + [...] 0.3 | 0.1 - 1.5 mg/dL | [facility] | + + + + + | ALK PHOS | 123 (H) | 35 - 115 U/L | [facility] | + + + + + | AST | 11 | 10 - 45 U/L | [facility] | + + + + + | ALT | 16 | 10 - 65 U/L | [facility] | + + + + + | EGFR | 54 (L)Comment: GFR <60: | >60 mL/min/1.73m2 | [facility] | | | CHRONIC KIDNEY [...] the | | | | | MDRD [facility] traceable | | | | | equation.Testing | | | | | performed at [facility] | | | | | [facility];[place], [place] | | | | | [address] | | | + + + + + + + | Specimen | + + | Blood | + + + + + + + | Performing | Address | City/State/Zipcode | Phone Number | | Organization | | | | + + + + + | [facility] | [address] | [place] [address] | | + + + + + CBC with differential (10/31/2017 6:33 PM) + + + + + | Component | Value | Ref Range | Performed At | + + + + + | WBC | 7.10 | 3.80 - 11.00 K/uL | [facility] | + + + + + | RBC | 4.50 | 4.20 - 5.70 M/uL | [facility] | + + + + + | HGB | 10.5 (L) | 13.2 - 17.0 g/dL | [facility] | + + + + + | HCT | 34.1 (L) | 39.0 - 50.0 % | [facility] | + + + + + | MCV | 75.8 (L) | 80.0 - 100.0 fl | [facility] | + + + + + | MCH | 23.2 (L) | 27.0 - 34.0 pg | [facility] | + + + + + | MCHC | 30.6 (L) | 32.0 - 35.5 g/dL | [facility] | + + + + + | RDW SD | 48.1 | 37 - 53 fl | [facility] | + + + + + | PLT | 383 | 150 - 400 K/uL | [facility] | + + + + + | MPV | 9.0 | fl | [facility] | + + + + + [...] 0.05 | 0.00 - 0.10 K/uL | [facility] | + + + + + | MORPHOLOGY | 1+ | | [facility] | | | Comment: | [...] Comment | SLIDE SCANNED, AGREES | | [facility] | | | WITH AUTOMATED | | | | | RESULTS.Comment: Testing | | | | | performed at [facility];[address] | | | | | [address];[place] | | | | | [address] | | | + + + + + + + | Specimen | + + | Blood | + + + + + + + | Performing | Address | City/State/Zipcode | Phone Number | | Organization | | | | + + + + + | [facility] | [address] | [place] [address] | | + + + + + [...]
--- OUTSIDE RECORDS SUMMARY | ~2017-11-22 | XMS | Encounter Summary ---
Demographics + + + | Address | [address] | | | [place] [address] | + + + | Home Phone | | + + + | Preferred Language | Unknown | + + + | Marital Status | | + + + | Alevism Affiliation | Unknown | + + + | Race | Unknown | + + + | Ethnic Group | Unknown | + + + Author + + + | Author | [facility] | + + + | Organization | [facility] | + + + | Address | Unknown | + + + | Phone | Unavailable | + + + Support + + +---------+ + | Name | Relationship | Address | Phone | + + +---------+ + | Yuki Nguyen | ECON | Unknown | | + + +---------+ + Care Team Providers + +------+ + | Care Instructor Traffic Safety Name | Role | Phone | + +------+ + PCP | Unavailable | + +------+ + Encounter Details +--------+ + + + + | Date | Type | Department | Care Team | Description | +--------+ + + + + | 10/21/ | Telephone | [facility] | Jessica Kraus, | | | 2017 | | Hematology and | VENTILATION EQUIPMENT TENDER | | | | | Oncology [address] | | | | | | [address] | | | | | | [place] | | | | | | [address] | | | | | | [phone] | | | +--------+ + + + [...] [place] | | | | | | [id number] | | | | | | | | +--------+---------+ + + + as of this encounter Visit Diagnoses Not on filein this encounter"
--- OUTSIDE RECORDS SUMMARY | ~2017-11-22 | XMS | Encounter Summary ---
Demographics + + + | Address | [address] | | | [place] [address] | + + + | Home Phone | | + + + | Preferred Language | Unknown | + + + | Marital Status | | + + + | Catholic Affiliation | Unknown | + + + | Race | Unknown | + + + | Ethnic Group | Unknown | + + + Author + + + | Author | [facility] | + + + | Organization | [facility] | + + + | Address | Unknown | + + + | Phone | Unavailable | + + + Support + + +---------+ + | Name | Relationship | Address | Phone | + + +---------+ + | Yuki Nguyen | ECON | Unknown | | + + +---------+ + Care Team Providers + +------+ + | Care Clamp Remover Name | Role | Phone | + [...] + + | 09/23/ | Documentati | [facility] | Gabriella, | Other (CONSULT, | | 2018 | on Only | Hematology and | Stephanie Dubon MD | GABRIELLA/REFERRAL | | | | Oncology [address] | [address] | , ADITI) | | | | [address] | [place] | | | | | [place] | [address] | | | | | [address] | | | | | | [phone] | | | +--------+ + + + [...] [place] | | | | | | [address] | | | | | | | | +--------+---------+ + + + as of this encounter Visit Diagnoses Not on filein this encounter"
--- OUTSIDE RECORDS SUMMARY | ~2017-11-22 | XMS | Encounter Summary ---
Demographics + + + | Address | [address] | | | [place] [address] | + + + | Home Phone | | + + + | Preferred Language | Unknown | + + + | Marital Status | | + + + | Nondenominational Affiliation | LDS | + + + | Race | White | + + + | Ethnic Group | Not or | + + + Author + + + | Author | [facility] | + + + | Organization | [facility] | + + + | Address | Unknown | + + + | Phone | Unavailable | + + + Support + + + + + | Name | Relationship | Address | Phone | + + + + + | MILLY NGUYEN | ECON | [address] | | | | | [place], | | | | | [place] [address] | | + + + + + | Holly Burrell | ECON | Unknown | | + + + + + Care Team Providers + +------+ + | Care Test Clerk Name | Role | Phone | [...] | | | mass | [address] | [address] | | | | | Procedures | Ave | Mailcode: | | | | | CT ABDOMEN | [place], [place] | [facility] | | | | | [place] | [address] | for Health | | | | | CONTRAST CO | Phone: | and Healing, | | | | | CT SCAN OF | [phone] | 3rd Floor | | | | | ABDOMEN | Fax: | [place], [place] | | | | | COMBO | [phone] | [address] | | | | | | | Phone: | | | | | | | [phone] | | | | | | | Fax: | | | | | | | [phone] | +--------+--------+ + + + + Reason for Visit + + + | Reason | Comments | + + + | Care Management | | + + + Encounter Details +--------+ + + + + | Date | Type | Department | Care Team | Description | +--------+ + + + + | 08/25/ | Telephone | Urology at [facility] | Cristy Rubin MD | Care Management | | 2017 | | [address] | [address] | | | | | Mail Code: CH10U | [place], [place] | | | | | [facility] | [address] | | | | | and | [phone] | | | | | Floor [place], [place] | | | | | | [address] | | | | | | [phone] | | | +--------+ + + + [...] + + | 12/20/ | Diagnostic | Incident Response Specialist | Nils Woody, | | | 2017 | Visit | | Keyla [facility] | | | | | | [address] [facility] | | | | | | [place], [place] | | | | | | [address] | | | | | | | | +--------+ + + + + as of this encounter Results CT ABDOMEN WWO IV [...] Crowe MD 09/01/2017 9:03 AM Preliminary: Diane Otoole | | Leanna Crowe MD Dictation initiated: [...] Diane Crowe MD Dictation initiated: Sydnie Guzman | 09/01/2017 8:29 AM | | | |BONES [...]
--- OUTSIDE RECORDS SUMMARY | ~2017-11-22 | XMS | Encounter Summary ---
Demographics + + + | Address | [address] | | | [place] [address] | + + + | Home Phone [...] + | MILLY NGUYEN | ECON | [address] | | | | | [place], | | | | | [place] [address] | | + + + + + | Holly Burrell | ECON | Unknown | | + + + + + Care Team Providers + +------+ + | Care Esl Instructional Assistant Name | Role | Phone | [...] | 09/14/ | Telephone | Urology at [facility] | Cristy Rubin MD | FMLA | | 2018 | | [address] | [address] | | | | | Mail Code: CH10U | [place], [place] | | | | | [facility] | [address] | | | | | and | [phone] | | | | | Floor [place], [place] | | | | | | [address] | | | | | | [phone] | | | +--------+ + + + [...] + + | 12/20/ | Diagnostic | Marine Equipment Sales Engineer | Nils Woody, | | | 2017 | Visit | | [address] | | | | | | [address] | | | | | | [place], [place] | | | | | | [address] | | | | | | | | +--------+ + + + + as of this encounter Visit Diagnoses Not on filein this encounter"
--- OUTSIDE RECORDS SUMMARY | ~2017-11-22 | XMS | Encounter Summary ---
Demographics + + + | Address | [address] | | | [place] [address] | + + + | Home Phone [...] + | MILLY NGUYEN | ECON | [address] | | | | | [place], | | | | | [place] [address] | | + + + + + | Holly Burrell | ECON | Unknown | | + + + + + Care Team Providers + +------+ + | Care Freight Receiver Name | Role | Phone | + +------+ + | Jeremy Adrian MD | PCP | | + +------+ + Encounter Details +--------+ + + + + | Date | Type | Department | Care Team | Description | +--------+ + + + + | 08/26/ | Procedure | Radiology/Imaging | | | | 2018 | Pass | Lab at [facility] [address] | | | | | | [address] | | | | | | Mailcode: CH3G | | | | | | [facility] | | | | | | and [address], 3rd | | | | | | Floor | | | | | | [address] | | | | | | [phone] | | | +--------+ + + + [...] + + | 12/20/ | Diagnostic | Photoengraving Retoucher | Nils Woody, | | | 2018 | Visit | | Ke[facility] [address] | | | | | | [address] | | | | | | [place] | | | | | | [address] | | | | | | | | +--------+ + + + + as of this encounter Visit Diagnoses Not on filein this encounter"
--- OUTSIDE RECORDS SUMMARY | ~2017-11-22 | XMS | Encounter Summary ---
Demographics + + + | Address | [address] | | | [place] [address] | + + + | Home Phone | | + + + | Preferred Language | Unknown | + + + | Marital Status | | + + + | Mormon Affiliation | LDS | + + + [...] + | MILLY NGUYEN | ECON | [address] | | | | | [place], | | | | | [place] [address] | | + + + + + | Holly Burrell | ECON | Unknown | | + + + + + Care Team Providers + +------+ + | Care Underwriter Mortgage Loan Name | Role | Phone | + [...] | 09/09/ | Telephone | Urology at [facility] | Cristy Rubin MD | Pre-op evaluation | | 2018 | | [address] | [address] | | | | | Mail Code: CH10U | [place], [place] | | | | | [facility] | [address] | | | | | and | [phone] | | | | | Floor [place], [place] | | | | | | [address] | | | | | | [phone] | | | +--------+ + + + [...] + | 12/20/ | Diagnostic | Supervisor Wet Room | Nils Woody, | | | 2017 | Visit | | [address] | | | | | | [address] | | | | | | [place] | | | | | | [phone] | | | | | | | | +--------+ + + + + as of this encounter Visit Diagnoses Not on filein this encounter"
--- OUTSIDE RECORDS SUMMARY | ~2017-11-22 | XMS | Encounter Summary ---
Demographics + + + | Address | [address] | | | [place] [address] | + + + | Home Phone | | + + + | Preferred Language | Unknown | + + + | Marital Status | | + + + | Latter-Day Affiliation | Unknown | + + + | Race | Unknown | + + + | Ethnic Group | Unknown | + + + Author + + + | Author | [facility] [facility] | + + + | Organization | [facility] [facility] | + + + | Address | Unknown | + + + | Phone | Unavailable | + + + Support + + +---------+ + | Name | Relationship | Address | Phone | + + +---------+ + | Yuki Nguyen | ECON | Unknown | | + + +---------+ + Care Team Providers + +------+ + | Care Manager Competitive Intelligence Name | Role | Phone | + +------+ + | Jeremy Adrian MD | PCP | | + +------+ + Encounter Details +--------+ + + + + | Date | Type | Department | Care Team | Description | +--------+ + + + + | 10/10/ | Orders Only | [facility] | Tequila Griffin RP | | | 2017 | | [address] | | | | | | [place] | | | | | | [address] | | | +--------+ + + + [...] [place] | | | | | | [address] | | | | | | | | +--------+---------+ + + + as of this encounter Visit Diagnoses Not on filein this encounter"
--- OUTSIDE RECORDS SUMMARY | ~2017-11-22 | XMS | Encounter Summary ---
Demographics + + + | Address | [address] | | | [place] [address] | + + + | Home Phone | | + + + | Preferred Language | Unknown | + + + | Marital Status | | + + + | Mu-Ism Affiliation | LDS | + + + [...] + | MILLY NGUYEN | ECON | [address] | | | | | [place], | | | | | [place] [address] | | + + + + + | Holly Burrell | ECON | Unknown | | + + + + + Care Team Providers + +------+ + | Care Oil Transport Driver Name | Role | Phone | + +------+ + | Jeremy Adrian MD | PCP | | + +------+ + Reason for Visit + + + | Reason | Comments | + + + | Postoperative Check | Labs | + + + Encounter Details +--------+ + + + + | Date | Type | Department | Care Team | Description | +--------+ + + + + | // | Telephone | Urology at [facility] | Cristy Rubin MD | Postoperative Check | | 2018 | | [address] | [address] | (Labs) | | | | Mail Code: CH10U | [place], [place] | | | | | [facility] | [address] | | | | | and | [phone] | | | | | Floor [place], [place] | | | | | | [address] | | | | | | [phone] | | | +--------+ + + + [...] + + | 12/20/ | Diagnostic | Database Marketing Manager | Nils Woody, | | | 2017 | Visit | | [address] | | | | | | [address] [facility] | | | | | | [place], [place] | | | | | | [address] | | | | | | | | +--------+ + + + + as of this encounter Results [facility] - COMPLETE METABOLIC SET (10/06/2017 7:32 AM) + + + + + | Component | Value | Ref Range | Performed At | + + + + + | GLUCOSE, PLASMA | 81 | 70 - 99 mg/dL | [facility] | | (LAB) | | | SERVICES, | | | | | [facility] | | [facility] | | [facility] | + + + + + | BUN, PLASMA (LAB) | 20 | 6 - 20 mg/dL | [facility] | | | | | [...] 137 | 134 - 143 mmol/L | [facility] | | | [...] (H) | 6.1 - 7.9 g/dL | [facility] | | PLASMA (LAB) | | [...] | + + + + + | [facility] | [address] | [place] [address] | | | SERVICES, [place] [facility] | | | | | HE[facility] [...] 10.7 | 9.7 - 12.3 fL | [facility] | | | | | [facility], | | | | | [place] [facility] | | | | | HE[facility] + | | | | | HEALING | + + + + + + + | Specimen | + + | Blood - Blood | + + + + + + + | Performing | Address | City/State/Zipcode | Phone Number | | Organization | | | | + + + + + | [facility] | [address] | [place] [address] | | | SERVICES, [place] [facility] | | | | | HE[facility] + HEALING | | | | + + + + + in this encounter Visit Diagnoses + + | Diagnosis | + + | Right renal mass - Primary | + + | Unspecified disorder of kidney and ureter | + +"
--- OUTSIDE RECORDS SUMMARY | ~2017-11-22 | XMS | Encounter Summary ---
Demographics + + + | Address | [address] | | | [place] [address] | + + + | Home Phone | | + + + | Preferred Language | Unknown | + + + | Marital Status | | + + + | Sabianist Affiliation | Unknown | + + + | Race | Unknown | + + + | Ethnic Group | Unknown | + + + Author + + + | Author | [facility] | + + + | Organization | [facility] | + + + | Address | Unknown | + + + | Phone | Unavailable | + + + Support + + +---------+ + | Name | Relationship | Address | Phone | + + +---------+ + | Yuki Nguyen | ECON | Unknown | | + + +---------+ + Care Team Providers + +------+ + | Care Water Safety Teacher Name | Role | Phone | + +------+ + | Jeremy Adrian MD | PCP | | + +------+ + Encounter Details +--------+ + + + + | Date | Type | Department | Care Team | Description | +--------+ + + + + | 11/17/ | Telephone | [facility] | Garcie Brooks MA | | | 2018 | | Hematology and | | | | | | Oncology [address] | | | | | | [address] | | | | | | [place] | | | | | | [address] | | | | | | [phone] | | | +--------+ + + + [...] [place] | | | | | | [address] | | | | | | | | +--------+---------+ + + + as of this encounter Visit Diagnoses Not on filein this encounter"
--- OUTSIDE RECORDS SUMMARY | ~2017-11-22 | XMS | Encounter Summary ---
Demographics + + + | Address | [address] | | | [place] [address] | + + + | Home Phone [...] + + + | Author | [facility] | + + + | Organization | [facility] | + + + | Address | Unknown | + + + | Phone | Unavailable | + + + Support + + + + + | Name | Relationship | Address | Phone | + + + + + | MILLY NGUYEN | ECON | [address] | | | | | [place], | | | | | [place] [address] | | + + + + + | Holly Burrell | ECON | Unknown | | + + + + + Care Team Providers + +------+ + | Care Armed Guard Name | Role | Phone | [...] | 09/14/ | Telephone | Urology at [facility] | Cristy Rubin MD | FMLA | | 2018 | | [address] | [address] | | | | | Mail Code: CH10U | [place], [place] | | | | | [facility] | [address] | | | | | and | [phone] | | | | | Floor [place], [place] | | | | | | [address] | | | | | | [phone] | | | +--------+ + + + [...] + + | 12/20/ | Diagnostic | Route Delivery Driver | Nils Woody, | | | 2017 | Visit | | [address] | | | | | | [address] | | | | | | [place], [place] | | | | | | [address] | | | | | | | | +--------+ + + + + as of this encounter Visit Diagnoses Not on filein this encounter"
--- OUTSIDE RECORDS SUMMARY | ~2017-11-22 | XMS | Encounter Summary ---
Demographics + + + | Address | [address] | | | [place] [address] | + + + | Home Phone | | + + + | Preferred Language | Unknown | + + + | Marital Status | | + + + | Voodoo Affiliation | LDS | + + + | Race | White | + + + | Ethnic Group | Not or | + + + Author + + + | Author | [facility] | + + + | Organization | [facility] | + + + | Address | Unknown | + + + | Phone | Unavailable | + + + Support + + + + + | Name | Relationship | Address | Phone | + + + + + | MILLY NGUYEN | ECON | [address] | | | | | [place], | | | | | [place] [address] | | + + + + + | Holly Burrell | ECON | Unknown | | + + + + + Care Team Providers + +------+ + | Care Cvicu Rn Name | Role | Phone | + +------+ + | Jeremy Adrian MD | PCP | | + +------+ + Encounter Details +--------+ + + + + | Date | Type | Department | Care Team | Description | +--------+ + + + + | 08/31/ | Hospital | Radiology/Imaging | Alison Garcia | | | 2018 | Encounter | Lab at [facility] [address] | [address] | | | | | [address] | [address] | | | | | Mailcode: CH3G | [place], [place] | | | | | [facility] | [address] | | | | | and [address], [facility] | [phone] | | | | | Floor [place], [place] | | | | | | [address] | | | | | | [phone] | | | +--------+ + + + [...] + + | 12/20/ | Diagnostic | Retail Cosmetics Sales Counter Manager | Nils Woody, | | | 2018 | Visit | | [address] | | | | | | [address] | | | | | | [place], [place] | | | | | | [address] | | | | | | | [...] Note | + + | Service Account, [employer] Res In Interface - 08/31/2017 5:20 PM [...]
--- OUTSIDE RECORDS SUMMARY | ~2017-11-22 | XMS | Encounter Summary ---
Demographics + + + | Address | [address] | | | [place] [address] | + + + | Home Phone | | + + + | Preferred Language | Unknown | + + + | Marital Status | | + + + | Protestant Affiliation | LDS | + + + | Race | White | + + + | Ethnic Group | Not or | + + + Author + + + | Author | [facility] | + + + | Organization | [facility] | + + + | Address | Unknown | + + + | Phone | Unavailable | + + + Support + + + + + | Name | Relationship | Address | Phone | + + + + + | MILLY NGUYEN | ECON | [address] | | | | | [place], | | | | | [place] [address] | | + + + + + | Holly Burrell | ECON | Unknown | | + + + + + Care Team Providers + +------+ + | Care Market Research Manager Name | Role | Phone | + +------+ + | Jeremy Adrian MD | PCP | | + +------+ + Encounter Details +--------+ + + + + | Date | Type | Department | Care Team | Description | +--------+ + + + + | 08/23/ | Materials And Processes Manager | Urology at [facility] | Alison Garcia | Renal mass, right | | 2018 | | [address] | [address] | (Primary Dx) | | | | Mail Code: CH10U | [address] | | | | | [facility] | [place], [place] | | | | | and , | [address] | | | | | Floor [place], [place] | [phone] | | | | | [address] | | | | | | [phone] | | | +--------+ + + + [...] + + | 12/20/ | Diagnostic | Endoscopy Tech | Nils Woody, | | | 2017 | Visit | | [address] | | | | | | [address] [facility] | | | | | | [address] [place], [place] | | | | | | [address] | | | | | | | [...] Note | + + | Service Account, [employer] Res In Interface - 08/24/2017 2:16 PM [...]
--- OUTSIDE RECORDS SUMMARY | ~2017-11-22 | XMS | Encounter Summary ---
Demographics + + + | Address | [address] | | | [place] [address] | + + + | Home Phone | | + + + | Preferred Language | Unknown | + + + | Marital Status | | + + + | Jewish Affiliation | LDS | + + + [...] + | MILLY NGUYEN | ECON | [address] | | | | | [place], | | | | | [place] [address] | | + + + + + | Holly Burrell | ECON | Unknown | | + + + + + Care Team Providers + +------+ + | Care Cosmetic Surgeon Name | Role | Phone | + [...] | | MPV 4th Floor Day | [facility] [address] | Dx); Right renal | | | | Stay [address] | [place], [place] | mass; Essential | | | | [address] [facility] | [address] | hypertension; Type 2 | | | | Mailcode: UHN65 | [phone] | diabetes mellitus | | | | [address] | | with complication, | | | | [address] [place], [place] | | with long-term | | | | [address] | | current use of | | | | [phone] | | insulin ([facility]); | | | | | | [...] or walk. Surgery check-in location: Admitting - [facility], ninth floor [facility] Surgery Check in Time: The Preoperative [...] it is after office hours, call the [facility] auxiliary plant operator at [phone] and ask them to page him or [...] bilateral cochlear implants; had been evaluated in [facility] in 2016 and 201 5 Perioperative cardiac [...] to this patient's care. HOMERO OCAMPO MD [facility] CL[facility] PREOPERATIVE MEDICINE CLINIC AT [facility] 4TH FLOOR DAY STAY [address] [facility] [address] I spent time (35 [...] + + | 12/20/ | Diagnostic | Ct Technologist | Nils Woody, | | | 2018 | Visit | | Ke[facility] [address] | | | | | | [address] [facility] | | | | | | Rd [place], [place] | | | | | | [address] | | | | | | | | +--------+ + + + + + +--------+ + + | Name | Priori | Associated Diagnoses | Order Schedule | | | ty | | | + +--------+ + + | COMMUNICATION TO [facility] LAB DRAW | Routin | | Ordered: [...] DEPT OF | [address] | [place], [place] | | | CARDIOLOGY | [address] | [address] | | + + + + + CULTURE, URINE JO-ANN (09/01/2017 11:13 AM) + + + + + | Component | Value | Ref Range | Performed At | + + + + + | URINE CULTURE [facility] | Insignificant growth | | [facility] | | | (<10,000 cfu/mL) | | [place] | + + + + + + + | Specimen | + + | Urine | + + + + + + + | Performing | Address | City/State/Zipcode | Phone Number | | Organization | | | | + + + + + | [facility] | [address] | [place] [address] | | | [place] | BERTHA [...] | 0.00 - 0.02 K/cu mm | [facility] | | | | | SERVICES, [...] | + + + + + | [facility] | [address] [facility] [address] | [place] [address] | | | [place] | BERTHA [...] [facility] | [address] | [place] [address] | | | SERVICES, | [address] [...] | + + + + + | [facility] | [address] | [place] [address] | | | SERVICES, | [address] | | | | TRANSFUSION MEDICINE | | | | + + + + + FRANCI ALCARAZ (09/01/2017 11:13 AM) + + + + + | Component | Value | Ref Range | Performed At | + + + + + | COLOR(UR) | Yellow | | [facility] | | | | | TAMIKA, [...] 1.030 | [facility] | | | [place] performed by | | [place] | [...] [facility] | [address] | [place] [address] | | | SERVICES, X[place] | [address] [...] 0 | 0 - 2 /lpf | [facility] | | | | | SERVICES, CORE | + +---------+ + + | CELLULAR CASTS | 0 | <=0 /lpf | [facility] | | | | | SERVICES, CORE | + +---------+ + + | TRIPLE P04 CRYSTALS | None | None /hpf | [facility] | | | | | SERVICES, [...] CRYSTALS | None | None /hpf | [facility] | | | | | SERVICES, CORE | + +---------+ + + + + | Specimen | + + | Urine | + + + + + + + | Performing | Address | City/State/Zipcode | Phone Number | | Organization | | | | + + + + + | [facility] | [address] | [place] [address] | | | SERVICES, XEN[place] | BERTHA [...] | + + + + + | [facility] | [address] | [place] [address] | | | SERVICES, CORE | BERTHA [...] | [facility] | | considered for monitoring ferry terminal supervisor glycemic control in patients with: | LABORATORY [...] | + + + + + | [facility] | [address] | [place] [address] | | | SERVICES, SPECIAL | BERTHA [...] (L) | 136 - 145 mmol/L | [facility] | | | | | SERVICES, CORE | + +---------+ + + | POTASSIUM, PLASMA | 4.6 | 3.4 - 5.0 mmol/L | [facility] | | (LAB) | | | [...] | | PLASMA (LAB) | | | [facility], CORE | + +---------+ + + | ALBUMIN, PLASMA | 3.6 | 3.5 - 4.7 g/dL | [facility] | | (LAB) | | | SERVICES, CORE | + +---------+ + + | ALK PHOS | 150 (H) | 56 - 119 U/L | [facility] | | | | | SERVICES, CORE | + +---------+ + + | AST(SGOT) | 10 | <=41 U/L | [facility] | | | | | SERVICES, CORE | + +---------+ + + | ALT (SGPT) | 14 | <=60 U/L | [facility] | | | | | [...] [facility] | [address] | [place] [address] | | | SERVICES, CORE | BERTHA [...]
--- OUTSIDE RECORDS SUMMARY | ~2017-11-22 | XMS | Clinical Summary ---
Demographics + + + | Address | [address] | | | [place] [address] | + + + | Home Phone | | + + + | Preferred Language | Unknown | + + + | Marital Status | | + + + | Synagogue Affiliation | Unknown | + + + | Race | Unknown | + + + | Ethnic Group | Unknown | + + + Author + + + | Author | [facility] | + + + | Organization | [facility] | + + + | Address | Unknown | + + + | Phone | Unavailable | + + + Support + + +---------+ + | Name | Relationship | Address | Phone | + + +---------+ + | Yuki Nguyen | ECON | Unknown | | + + +---------+ + Care Team Providers + +------+ + | Care Transportation Aid Name | Role | Phone | + [...] | | | | | | right ([facility]) | | | | | | | [...] | | | | | | right ([facility]) | | | | | | | [...] | | | 2017 | | | VARNISHER PLASTICOATER | | +--------+ + + + + [...] [place] | | | | | | [address] | | | | | | | [...] | COLOR UA | COLORLESS | | [employer] | + + + + + | CLARITY | CLEAR | | [facility] | + + + + + | Specific [place], [place] | 1.006 | 1.002 - 1.030 | [facility] | + + + + + [...] KETONES | NEGATIVE | NEGATIVE mg/dL | [facility] | + + + + + | BILIRUBIN | NEGATIVE | NEGATIVE | [facility] | + + + + + | GLUCOSE | >500 (A)Comment: Testing | NEGATIVE mg/dL | [facility] | | | performed at [facility];[address] | | | | | [address];[place] | | | | | [address] | | | + + + + + + + | Specimen | + + | Urine, Clean Catch | + + + + + + + | Performing | Address | City/State/Zipcode | Phone Number | | Organization | | | | + + + + + | [facility] | [address] | [place] [address] | | + + + + + aPTT (10/31/2017 6:33 PM) + + + + + | Component | Value | Ref Range | Performed At | + + + + + | APTT | 30Comment: Testing | 23 - 32 seconds | [facility] | | | performed at [facility];[address] | | | | | [address];[place] | | | | | [address] | | | + + + + + + + | Specimen | + + | Blood | + + + + + + + | Performing | Address | City/State/Zipcode | Phone Number | | Organization | | | | + + + + + | [facility] | [address] | [place] [address] | | + + + + + Protime (10/31/2017 6:33 PM) + + + + + | Component | Value | Ref Range | Performed At | + + + + + | INR | 1.0Comment: REFERENCE | | [facility] | | | RANGE:0.9 - [...] | | | | | performed at [facility] | | | | | [address];[place], [place] | | | | | [address] | | | + + + + + + + | Specimen | + + | Blood | + + + + + + + | Performing | Address | City/State/Zipcode | Phone Number | | Organization | | | | + + + + + | [facility] | [address] | [place] [address] | | + + + + + CBC with differential (10/31/2017 6:33 PM) + + + + + | Component | Value | Ref Range | Performed At | + + + + + | WBC | 7.10 | 3.80 - 11.00 K/uL | [facility] | + + + + + | RBC | 4.50 | 4.20 - 5.70 M/uL | [facility] | + + + + + [...] 48.1 | 37 - 53 fl | [facility] | + + + + + | PLT | 383 | 150 - 400 K/uL | [facility] | + + + + + | MPV | 9.0 | fl | [facility] | + + + + + | DIFF TYPE | AUTOMATED | | [facility] | + + + + + | NEUTROPHILS | 62.52 | % | [facility] | + + + + + [...] + | MORPHOLOGY | 1+ | | [facility] | | | Comment: | [...] | Platelet Estimate | ADEQUATE | | [facility] | + + + + + | Diff Comment | SLIDE SCANNED, AGREES | | [facility] | | | WITH AUTOMATED | | | | | RESULTS.Comment: Testing | | | | | performed at [facility];[address] | | | | | [address];[place], [place] | | | | | [address] | | | + + + + + + + | Specimen | + + | Blood | + + + + + + + | Performing | Address | City/State/Zipcode | Phone Number | | Organization | | | | + + + + + | [facility] | [address] | [place] [address] | | + + + + + Magnesium (10/31/2017 6:33 PM) + + + + + | Component | Value | Ref Range | Performed At | + + + + + | MAGNESIUM | 2.5 (H)Comment: Testing | 1.7 - 2.4 mg/dL | [facility] | | | performed at [facility];[address] | | | | | [address];[place] | | | | | [address] | | | + + + + + + + | Specimen | + + | Blood | + + + + + + + | Performing | Address | City/State/Zipcode | Phone Number | | Organization | | | | + + + + + | [facility] | [address] | [place] [address] | | + + + + + Lipase (10/31/2017 6:33 PM) + + + + + | Component | Value | Ref Range | Performed At | + + + + + | LIPASE | 146Comment: Testing | 73 - 393 U/L | [facility] | | | performed at [facility];[address] | | | | | [address];[place] | | | | | [address] | | | + + + + + + + | Specimen | + + | Blood | + + + + + + + | Performing | Address | City/State/Zipcode | Phone Number | | Organization | | | | + + + + + | [facility] | [address] | [place] [address] | | + + + + + Comprehensive metabolic panel (10/31/2017 6:33 PM) + + + + + | Component | Value | Ref Range | Performed At | + + + + + | SODIUM | 139 | 135 - 145 mmol/L | [facility] | + + + + + | POTASSIUM | 4.2 | 3.5 - 4.9 mmol/L | [facility] | + + + + + | CHLORIDE | 104 | 99 - 109 mmol/L | [facility] | + + + + + | CO2 | 28 | 23 - 32 mmol/L | [facility] | + + + + + | ANION GAP AGAP | 12 | 5 - 20 mmol/L | [facility] | + + + + + | GLUCOSE | 128 (H) | 65 - 99 mg/dL | [facility] | + + + + + | BUN | 23 | 8 - 25 mg/dL | [facility] | + + + + + | CREATININE | 1.3 | 0.70 - 1.30 mg/dL | [facility] | + + + + + | BUN/CREAT | 18 | | [facility] | + + + + + | CALCIUM | 9.3 | 8.5 - 10.5 mg/dL | [facility] | + + + + + | TOTAL PROTEIN | 8.7 (H) | 6.3 - 8.2 g/dL | [facility] | + + + + + | Albumin | 3.8 | 3.3 - 4.8 g/dL | [facility] | + + + + + | GLOBULIN | 5.0 (H) | 1.3 - 4.9 g/dL | [facility] | + + + + + | A/G | 0.8 (L) | 1.0 - 2.4 | [facility] | + + + + + | TBIL | 0.3 | 0.1 - 1.5 mg/dL | [facility] | + + + + + | ALK PHOS | 123 (H) | 35 - 115 U/L | [facility] | + + + + + | AST | 11 | 10 - 45 U/L | [facility] | + + + + + | ALT | 16 | 10 - 65 U/L | [facility] | + + + + + | EGFR | 54 (L)Comment: GFR <60: | >60 mL/min/1.73m2 | [facility] | | | CHRONIC KIDNEY [...] the | | | | | [facility] traceable | | | | | equation.Testing | | | | | performed at [facility];[address] | | | | | [facility];[place], [place] | | | | | [address] | | | + + + + + + + | Specimen | + + | Blood | + + + + + + + | Performing | Address | City/State/Zipcode | Phone Number | | Organization | | | | + + + + + | [facility] | [address] | [place] [address] | | + + + + + from Last 3 Months Insurance +---------+--------+ +------+-------+ + | Payer | Benefi | Subscriber | Type | Phone | Address | | | t Plan | ID | | | | | | / | | | | | | | Group | | | | | +---------+--------+ +------+-------+ + | PREMERA | PREMER | [id number] | | | [address] [address] | | | A BLUE | 7 | | | [place], [place] | | | CARD | | | | [address] | +---------+--------+ +------+-------+ + + +--------+ +--------+ [...] | | | christos | | | [phone] | [phone] | + +--------+ +--------+ + +
--- OUTSIDE RECORDS SUMMARY | ~2017-11-22 | XMS | Encounter Summary ---
Demographics + + + | Address | [address] | | | [place] [address] | + + + | Home Phone | | + + + | Preferred Language | Unknown | + + + | Marital Status | | + + + | Scientologist Affiliation | Unknown | + + + | Race | Unknown | + + + | Ethnic Group | Unknown | + + + Author + + + | Author | [facility] | + + + | Organization | [facility] | + + + | Address | Unknown | + + + | Phone | Unavailable | + + + Support + + +---------+ + | Name | Relationship | Address | Phone | + + +---------+ + | Yuki Nguyen | ECON | Unknown | | + + +---------+ + Care Team Providers + +------+ + | Care Baggage Clerk Name | Role | Phone | [...] | | | | Cancer of | [place] | | | | | kidney, | Rangaswamy | [address] | | | | | right (HCC) | MD [address] | [address] | | | | | Procedures | [address] | [place] | | | | | [address] head [address] | [address]VE | [address] | | | | | [address] | [place], | Phone: | | | | | contrast | [place] [address] | [phone] | | | | | | Phone: | Fax: | | | | | | [phone] | [phone] | | | | | | Fax: | | | | | | | [phone] | | + +--------+ + + + + Encounter Details +--------+ + + + + | Date | Type | Department | Care Team | Description | +--------+ + + + + | 10/13/ | Orders Only | [facility] | [place], | Cancer of kidney, | | 2018 | | Hematology and | Stephanie Dubon MD | right (HCC) (Primary | | | | Oncology [address] | Dx) | | | | [address] | [place] | | | | | [place] | [address] | | | | | [address] | | | | | | [phone] | | | +--------+ + + + [...] [place] | | | | | | [address] | | | | | | | [...]
--- OUTSIDE RECORDS SUMMARY | ~2017-11-22 | XMS | Encounter Summary ---
Demographics + + + | Address | [address] | | | [place] [address] | + + + | Home Phone [...] + | MILLY NGUYEN | ECON | [address] | | | | | [place], | | | | | [place] [address] | | + + + + + | Holly Burrell | ECON | Unknown | | + + + + + Care Team Providers + +------+ + | Care Program Attendant Name | Role | Phone | + [...] | 11/18/ | Telephone | Urology at [facility] | Cristy Rubin MD | Insurance | | 2018 | | [address] | [address] | Authorization | | | | Mail Code: CH10U | [place], [place] | (Disability claim) | | | | [facility] | [address] | | | | | and | [phone] | | | | | Floor [place], [place] | | | | | | [address] | | | | | | [phone] | | | +--------+ + + + [...] + + | 12/20/ | Diagnostic | Rice Cleaning Machine Tender | Nils Woody, | | | 2017 | Visit | | [address] | | | | | [address] | | | | | | [place], [place] | | | | | | [phone] | | | | | | | | +--------+ + + + + as of this encounter Visit Diagnoses Not on filein this encounter"
--- OUTSIDE RECORDS SUMMARY | ~2017-11-22 | XMS | Encounter Summary ---
Demographics + + + | Address | [address] | | | [place] [address] | + + + | Home Phone [...] + | MILLY NGUYEN | ECON | [address] | | | | | [place], | | | | | [place] [address] | | + + + + + | Holly Burrell | ECON | Unknown | | + + + + + Care Team Providers + +------+ + | Care Wood Ski Maker Name | Role | Phone | [...] | | | 2018 | Event | [facility] | Doroteo Barahona MD | | | | | Admitting Desk | [address] | | | | | Located on the 9 | [facility], | | | | | floor [address] [facility] [place] [address] | | | | | [facility] | [phone] | | | | | [place], [place] | | | | | | [address] | | | +--------+ + + + [...] + + | 12/20/ | Diagnostic | Senior Operations Analyst | Nils Woody, | | | 2018 | Visit | | [address] | | | | | | [address] | | | | | | [place], [place] | | | | | | [address] | | | | | | | [...]
--- OUTSIDE RECORDS SUMMARY | ~2017-11-22 | XMS | Encounter Summary ---
Demographics + + + | Address | [address] | | | [place] [address] | + + + | Home Phone | | + + + | Preferred Language | Unknown | + + + | Marital Status | | + + + | Mormonism Affiliation | LDS | + + + | Race | White | + + + | Ethnic Group | Not or | + + + Author + + + | Author | [facility] | + + + | Organization | [facility] | + + + | Address | Unknown | + + + | Phone | Unavailable | + + + Support + + + + + | Name | Relationship | Address | Phone | + + + + + | MILLY NGUYEN | ECON | [address] | | | | | [place], | | | | | [place] [address] | | + + + + + | Holly Burrell | ECON | Unknown | | + + + + + Care Team Providers + +------+ + | Care Shipping Team Leader Name | Role | Phone | + [...] | consultation | | | | [facility] | [address] [place], | | | | | [facility] Mailcode: [facility] | [place] [address] | | | | | [place], [place] | | | | | | [address] | | | | | | [phone] | | | +--------+ + + + [...] + + | 12/20/ | Diagnostic | Economic Analysis Director | Nils Woody, | | | 2017 | Visit | | [address] | | | | | | [address] | | | | | | [place], [place] | | | | | | [phone] | | | | | | | | +--------+ + + + + as of this encounter Visit Diagnoses Not on filein this encounter"
--- OUTSIDE RECORDS SUMMARY | ~2017-11-22 | XMS | Encounter Summary ---
Demographics + + + | Address | [address] | | | [place] [address] | + + + | Home Phone | | + + + | Preferred Language | Unknown | + + + | Marital Status | | + + + | Gnosticism Affiliation | LDS | + + + | Race | White | + + + | Ethnic Group | Not or | + + + Author + + + | Author | [facility] | + + + | Organization | [facility] | + + + | Address | Unknown | + + + | Phone | Unavailable | + + + Support + + + + + | Name | Relationship | Address | Phone | + + + + + | MILLY NGUYEN | ECON | [address] | | | | | [place], | | | | | [place] [address] | | + + + + + | Holly Otoole ECON | Unknown | | + + + + + Care Team Providers + +------+ + | Care B Operator Name | Role | Phone | + +------+ + | Jeremy Adrian MD | PCP | | + +------+ + Encounter Details +--------+ + + + + | Date | Type | Department | Care Team | Description | +--------+ + + + + | 08/25/ | Hotel Server | Urology at [facility] | Alison Garcia | Renal mass (Primary | | 2018 | | [address] | [address] [address] | Dx); Bladder mass | | | | Mail Code: CH10U | [address] | | | | | [facility] | [place], [place] | | | | | and | [address] | | | | | Floor [place], [place] | [phone] | | | | | [address] | | | | | | [phone] | | | +--------+ + + + [...] + + | 12/20/ | Diagnostic | Engineering Technical Writer | Nils Woody, | | | 2017 | Visit | | [address] | | | | | | [address] [facility] | | | | | | [place], [place] | | | | | | [address] | | | | | | | [...] Note | + + | Service Account, [employer] Res In Interface - 08/31/2017 5:20 PM [...]
--- OUTSIDE RECORDS SUMMARY | ~2017-11-22 | XMS | Encounter Summary ---
Demographics + + + | Address | [address] | | | [place] [address] | + + + | Home Phone | | + + + | Preferred Language | Unknown | + + + | Marital Status | | + + + | Presybeterian Affiliation | LDS | + + + [...] + | MILLY NGUYEN | ECON | [address] | | | | | [place], | | | | | [place] [address] | | + + + + + | Holly Otoole ECON | Unknown | | + + + + + Care Team Providers + +------+ + | Care Children'S Aide Name | Role | Phone | + +------+ + | Jeremy Adrian MD | PCP | | + +------+ + Encounter Details +--------+ + + + + | Date | Type | Department | Care Team | Description | +--------+ + + + + | 11/07/ | Breakfast Server | Urology at [facility] | Cristy Rubin MD | Dysphagia, | | 2018 | | [address] | [address] | pharyngoesophageal | | | | Mail Code: CH10U | [place], [place] | phase (Primary Dx) | | | | [facility] | [address] | | | | | and | [phone] | | | | | Floor [place], [place] | | | | | | [address] | | | | | | [phone] | | | +--------+ + + + [...] + + | 12/20/ | Diagnostic | Nib Adjuster | Nils Woody, | | | 2018 | Visit | | [address] | | | | | | [address] [facility] | | | | | | Rd [place], [place] | | | | | | [address] | | | | | | | [...]
--- OUTSIDE RECORDS SUMMARY | ~2017-11-22 | XMS | Encounter Summary ---
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) | Rd | | | | | | Procedures | [place], [place] | | | | | | [facility] | [address] | | | | | | ABDOMINAL | Phone: | | | | | | DUPLEX LTD | [phone] | | | | | | ARTERY VEIN | Fax: | | | | | | | [phone] | | + +--------+ + + + + Encounter Details +--------+ + + + + | Date | Type | Department | Care Team | Description | +--------+ + + + + | 09/17/ | Senior Android Software Engineer | Vascular Surgery | Azeem Eder Yepez, | 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[address] | ,[facility]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[facility] [address]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) | | | | [address] | [place], [place] | (Primary Dx) | | | | Mailcode: OP11 | [address] | | | | | Physicians Mick | [phone] | | | | | [place], [place] | | | | | | [address] | | | | | | [phone] | | | +--------+ + + + [...] + + | 12/20/ | Diagnostic | Stress Engineer | Nils Woody, | | | 2017 | Visit | | [facility] [address] | | | | | | SARAH Marquez [facility] | | | | | | [place], [place] | | | | | | [address] | | | | | | | | +--------+ + + + + as of this encounter Results [facility] ABDOMINAL DUPLEX LTD ARTERY VEIN [...] Note | + + | Service Account, RadiContently Res In Interface - 10/21/2017 2:39 PM [...]
--- OUTSIDE RECORDS SUMMARY | ~2017-11-22 | XMS | Encounter Summary ---
Demographics + + + | Address | [address] | | | [place] [address] | + + + | Home Phone | | + + + | Preferred Language | Unknown | + + + | Marital Status | | + + + | Faith Affiliation | LDS | + + + | Race | White | + + + | Ethnic Group | Not or | + + + Author + + + | Author | [facility] | + + + | Organization | [facility] | + + + | Address | Unknown | + + + | Phone | Unavailable | + + + Support + + + + + | Name | Relationship | Address | Phone | + + + + + | MILLY NGUYEN | ECON | [address] | | | | | [place], | | | | | [place] [address] | | + + + + + | Holly Burrell | ECON | Unknown | | + + + + + Care Team Providers + +------+ + | Care Cylinder Worker Name | Role | Phone | [...] | | | | | unspecified | [address] | [facility] [address] | | | | | type | Jimmy Bowling | [address] | | | | | Procedures | [address] | Mail Code: | | | | | CONSULT TO | [place], [place] | [address] | | | | | ENT GENERAL | [address] | for Health | | | | | | Phone: | and Healing, | | | | | | [phone] | 15th Floor | | | | | | Fax: | [place], [place] | | | | | | [phone] | [address] | | | | | | | Phone: | | | | | | | [phone] | | | | | | | Fax: | | | | | | | [phone] | + +--------+ + + + + [...] Therapy | Dysphagia, | Mario R, | [facility] [address] | | | | | unspecified | [address] | [address] | | | | | type | [address]ling | Mail Code: | | | | | Procedures | [address] | [facility] | | | | | SPEECH | [place], [place] | for Health | | | | | THERAPY | [address] | and Healing, | | | | | REFERRAL | Phone: | 15th Floor | | | | | | [phone] | [place], [place] | | | | | | Fax: | [address] | | | | | | [phone] | Phone: | | | | | | | [phone] | | | | | | | Fax: | | | | | | | [phone] | + +--------+ + + + + [...] + + | 09/13/ | Hospital | [facility] [address] | Cristy Rubin MD | | | 2018 - | Encounter | [address] | | | | | | [id number] [facility] | | | | 09/17/ | | [facility], | | | | 2018 | | [place] [address] | | | | | | [phone] | | | +--------+ + + + [...] may be different fr om the original. [facility] Inpatient Discharge Summary Mario Guardado [...] can cause constipation, so you may take [id number] stool softeners (Senok ot-S, Miralax, Colace) following [...] Physician A ssistant, Nurse or Surgery Resident informatics physician liaison if you have any of the followin. [...] 10/06/2017 9:30 AM Alison Garcia Urology at [facility] [phone] Urology 12/20/2017 8:30 AM Keyla Adam; AUDIO CASTELLON 4 Otolaryngology Audiology Services at [facility] [phone] [facility] Our schedulers will contact you to make an appointment. Your appointment will be on the 10t h floor of the [facility]. If you do not hear from our schedulers in [facility] call the clinic at . Please call [...] 10/06/2017 9:30 AM Alison Garcia Urology at [facility] [phone] Urology 12/20/2017 8:30 AM Keyla Adam; AUDIO CASTELLON 4 Otolaryngology Audiology Services at [facility] [phone] Otolaryngolo ----- Condition On Discharge: Good Vital [...] questions. Mario Guardado MD Urology PGY-1 Pg 42001 [facility] [address]A [address] [address] Associated attestation - Cristy Rubin MD - 09/17/2017 10:05 AM PDTI agree with discharge summary as written by Dr. Guardado. Pt will follow up in 3 weeks. Alex Rubin MD Machine Sorter Department of Urology [facility] in this encounter Discharge Instructions Xochilt [...] Intake/Output Summary (Last 24 hours) at 09/17/17 4897 Last data filed at 09/17/17 0429 Gross [...] 2.2 H&H 7.9/26.1 (from 7.3/24.4 yesterday) Imaging: [facility] ABDOMINAL DUPLEX LTD ARTERY VEIN 09/16/2017 [...] Please page the Vascular Surgery Team pager #[phone] with questions. Eder Gann M.D., M.P.H. Neurological Surgery Resident PGY-1 Pager: [phone] This assessment and plan was formulated both independently and in conjunction with the [facility] ular Surgery Team as well as [...] primary team Doroteo Lawton MD Vascular Surgery Mosaic Tiler Please page the Vascular Surgery Team pager# [phone] for questions Current Facility-Administered Medications: acetaminophen (TYLENOL) [...] the resident s note. Christian Mckeon M.D. [facility] Vascular Surgery [address] [place] [address], [address] [address] Email: [email or web address] Mario Guardado MD - 09/16/2017 8:52 AM PDTFormatting of this note may be different fr om the original. Urology Progress Note Hospital Day: 3 Author: MANDY BAEZA MD Attending Physician: Cristy Rubin MD Patient: ELICEO NGUYEN [id number] 24H events/Subjective: ELVIS overnight. Pain is well [...] primary team Doroteo Lawton MD Vascular Surgery Mosaic Tiler Please page the Vascular Surgery Team pager# [phone] for questions Current Facility-Administered Medications: acetaminophen (TYLENOL) [...] the resident s note. Christian Mckeon M.D. [facility] Vascular Surgery [address] [place] [address], [address] [address] Email: [email or web address] Mandy Baeza MD - 09/15/2017 8:50 AM PDTFormatting of this note may be different from lashay daigle original. Urology Progress Note Hospital Day: 2 Author: MANDY BAEZA MD Attending Physician: Cristy Rubin MD Patient: ELICEO NGUYEN [id number] 24H events/Subjective: ELVIS overnight. Pain is well [...] 0659 09/15/17 0700 - 09/16/17 0659 Shift [phone] [id number] 24 Hour Total 0493-2377 [id number] 1184-4812 24 Hour Total I N T A [...] mg, intravenous, Q2H PRN HYDROmorphone 0.5 mg/mL POCKETED SPRING ASSEMBLER (ADULT STANDARD DOSE) in 0.9 % NaCl, , intravenous, CONTINUOUS HYDROmorphone 0.5 mg/mL rescue bolus from POCKETED SPRING ASSEMBLER (ADULT STANDARD DOSE) 0.2 mg, 0.2 mg, [...] Rubin MD. Mandy Baeza MD Urology Pager [phone] Nata Roland MD - 09/14/2017 3:04 PM PDTFormatting of this note may be different fro m the original. Cardiovascular Intensive Care Unit Team Progress Note CVICU D2 Assigned #[id number] Admission dx: N28.89 (ICD-10-CM) - 593.9 (ICD-9-CM) - RENAL MASS Days in ICU 1 Days in Hospital Abbreviated HPI / Daily Assessment Mr. 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 24 Hour events -arterial line d/c -softer pressures overnight, but did not receive IVF bolus -pain well controlled with POCKETED SPRING ASSEMBLER -CLD Code Status Code Status Full Code Active Diagnosis with Assessment & Plan Priority Class POA Head/Neck Cochlear implant in place Yes Current Assessment & Plan Working well. Able to hear well except over the phone. 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 -Hold in post-operative period Digestive Gastroesophageal reflux disease Yes Current Assessment & Plan On pantoprazole as outpatient. -Continue omeprazole (formulary) Dysphagia Unknown Current Assessment & Plan Has had issues with swallowing and dysphagia for quite some time. Crushes all meds and ta kes them with applesauce. ORTHODONTIC TREATMENT COORDINATOR consult and recommend barium swallow. -CLD -Barium swallow today -ORTHODONTIC TREATMENT COORDINATOR following Hematologic Acute blood loss anemia Unknown [...] Vena cava graft done by vascular. Has POCKETED SPRING ASSEMBLER. 6.3 L crystalloid given during the case-no blood products given (1200 mL EBL). Did well overnight HD and with pain control. -Continue motta per urology -HM POCKETED SPRING ASSEMBLER -CLD until ORTHODONTIC TREATMENT COORDINATOR eval/uro approval -Closely monitor hemodynamics -[facility] status Code Status Updated to: FULL Physical [...] Cristy Rubin MD Admitting Provider Urological Surgery 69563 The Advanced Care Note for this patient can be found under the notes tab in chart review. Quality section Motta necessity reviewed: Acute urinary retention or obstruction FAST HUG Feeding: clears Analgesia: POCKETED SPRING ASSEMBLER Sedation: n/a Thromboprophylaxis: Heparin SQ Head of Bed: Speech and swallow evaluation Ulcer Prophylaxis: Omeprazole Glycemic Control: insulin sliding Created by Nata Roland MD Author:[place] [address]Moustapha Lema MD - 09/14/2017 10:11 AM PDTFormatting of this note m ay be different from the original. Cardiovascular Intensive Care Unit Attending Progress Note CVICU D2 Assigned #[id number] Hospital admission dx: N28.89 (ICD-10-CM) - 593.9 [...] if Hct drops - pain control w/ POCKETED SPRING ASSEMBLER - bronchiole hygiene - mobilize - speech/swallow eval, if advance diet stop IVF Dispo: stable for [facility] Hospital Problems Priority POA Head/Neck Cochlear implant [...] Cristy Rubin MD Admitting Provider Urological Surgery [id number] Code Status Code Status Full Code The [...] patient at the bedside together with Dr. Naat Roland.Please see their note for details. I agree with the assessment and plan as described in the resident's note with the following exceptions/additions as noted. Date of Service: 09/14/2017 PSYCHIATRIC DEPARTMENT: ANE ICU CARDIAC Place of Service:- Inpatient CSN: [id number] Suggested Modifier: GC - Resident Involved Suggested CPT: TO DISTRIBUTION AGENT Author:Moustapha Leam MD [address] [address] [place] [id number] Guardado MD - 09/14/2017 8:33 AM PDTUrology Progress Not e Hospital Day: 1 Author: Mario Guardado MD Attending Physician: Cristy Rubin MD Patient: ELICEO NGUYEN [id number] 24H events/Subjective: No acute events overnight Pt [...] suspected dysphagia vs. Pharyngeal diverticulum - Continue POCKETED SPRING ASSEMBLER pain control - Heparin prophylaxis - Maintain motta catheter - Oxybutynin for bladder discomfort due to motta #Caval graft - Aspirin 81mg daily The attending of record for this patient is Cristy Rubin MD. Mario Guardado MD Department of Urology [facility] [employer] Madiha Ramirez MD - 09/14/2017 6:08 AM [...] and plan. Madiha Ramirez MD General Surgery [id number] Johnson PA - 09/13/2017 10:51 PM PDTFormatting of this note may be different from the original. Cardiovascular Intensive Care Unit Clinical Update Note Team: D2 Team Pager: [phone] Attending: Dr. Rios Pt Name: Eliceo Nguyen ID: Abbreviated HPI Abbreviated HPI / Daily Assessment Mr. 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 Update: Pain well controlled with HM POCKETED SPRING ASSEMBLER. A-line no longer correlating with cuff BP [...] post nephrectomy Unknown Plan: - continue HM POCKETED SPRING ASSEMBLER - d/c a-line - SSI - cbc [...] e. Date of Service: 09/13/2017 MCKAYLA VIEYRA PSYCHIATRIC DEPARTMENT: ANE ICU CARDIAC Place of Service:- Inpatient CSN: [id number] Suggested Modifier: None Suggested CPT: TO DISTRIBUTION AGENT MCKAYLA VIEYRA in this encounter Plan of Treatment +--------+ + + + + | Date | Type | Specialty | Care Team | Description | +--------+ + + + + | 12/20/ | Diagnostic | Incinerator Plant General Supervisor | Nils Woody, | | | 2018 | Visit | | Keyla [facility] [address] | | | | | | [address] [facility] | | | | | | Rd [place], [place] | | | | | | [phone] | | | | | | | [...] - [place] | [address] | [place], [place] | | | TORSTEN TSAI [facility] SAULT | [address] | [address] | | | TESTS | | | | + + + + + CBC (HEMOGRAM) ONLY (09/17/2017 4:50 AM) + + + + + | Component | Value | Ref Range | Performed At | + + + + + | WHITE CELL COUNT | 8.56 | 3.50 - 10.80 K/cu mm | [facility] | | | [...] | + + + + + | [facility] | [address] | [place] [address] | | | SERVICES, XENIA | PARK [...] | + + + + + | [facility] | [address] | [place] [address] | | | SERVICES, CORE | [address] | | | + + + + + MAGNESIUM, PLASMA (09/17/2017 4:50 AM) + +-------+ + + | Component | Value | Ref Range | Performed At | + +-------+ + + | MAGNESIUM,PLASMA | 2.0 | 1.6 - 2.6 mg/dL | [facility] | | | | | SERVICES, CORE | + +-------+ + + + + | Specimen | + + | Blood - Blood | + + + + + | Narrative | Performed At | + + + | Reference range change effective 11/09/16. | [facility] | | | LABORAT[facility] | | | SERVICES, CORE | + + + + + + + + | Performing | Address | City/State/Zipcode | Phone Number | | Organization | | | | + + + + + | [facility] | [address] | [place] [address] | | | SERVICES, XENIA | PARK [...] >60 mL/min | [facility] | | [place] | | | SERVICES, CORE | + +---------+ + + | EGFR NON | >60 | >60 mL/min | [facility] | | -[place]ISH | | | SERVICES, CORE | + [...] POTASSIUM CMNT | No Hemo | | [facility] | | | | | SERVICES, CORE | + +---------+ + + + + | Specimen | + + | Blood - Blood | + + + + + | Narrative | Performed At | + + + | GFR is estimated using the MDRD equation recommended by the | [facility] | | National Kidney Disease [...] [facility] | [address] | [place] [address] | | | SERVICES, CORE | [address] [...] [place] | [address] | [place], [place] | | | QUIN POINT OF CARE | [address] | [address] | | | TESTS | | | [...] + + + | [facility] | [address] | [place], [place] | | | TORSTEN TSAI OF CARE | [address] | [address] | | | TESTS | | | [...] - [facility] | [address] | [place], [place] | | | QUIN [facility] SAULT | [address] | [address] | | | TESTS | | | [...] [place] | [address] | [place], [place] | | | QUIN POINT OF CARE | [address] | [address] | | | TESTS | | | | + + + + + CBC (HEMOGRAM) ONLY (09/16/2017 4:16 AM) + + + + + | Component | Value | Ref Range | Performed At | + + + + + | WHITE CELL COUNT | 9.09 | 3.50 - 10.80 K/cu mm | [facility] | | | | | SERVICES, [...] 10.5 | 9.7 - 12.3 fL | [facility] | | | | | SERVICES, CORE | + + + + + | NRBC% | 0.0 | 0.0 - 0.3 % | [facility] | | | | | SERVICES, CORE | + + + + + | NRBC# | 0.00 | 0.00 - 0.02 K/cu mm | [facility] | | | [...] [facility] | [address] | [place] [address] | | | XENIA LUNDBERG | [address] | | | + + + + + PHOSPHORUS, PLASMA (09/16/2017 4:16 AM) + +---------+ + + | Component | Value | Ref Range | Performed At | + +---------+ + + | PHOSPHORUS, PLASMA | 2.1 (L) | 2.4 - 4.7 mg/dL | [facility] | | (LAB) | | | SERVICES, CORE | + +---------+ + + + + | Specimen | + + | Blood - Blood | + + + + + + + | Performing | Address | City/State/Zipcode | Phone Number | | Organization | | | | + + + + + | [facility] | [address] | [place] [address] | | | SERVICES, CORE | [address] | | | + + + + + MAGNESIUM, PLASMA (09/16/2017 4:16 AM) + +-------+ + + | Component | Value | Ref Range | Performed At | + +-------+ + + | MAGNESIUM,PLASMA | 1.9 | 1.6 - 2.6 mg/dL | [facility] | | | [...] [facility] | [address] | [place] [address] | | | XENIA LUNDBERG | [address] [...] >60 mL/min | [facility] | | [place]ISH | | | SERVICES, CORE | + +---------+ + + | EGFR NON | >60 | >60 mL/min | [facility] | | -[place]ISH | | | SERVICES, CORE | + [...] | + + + + + | [facility] | [address] | [place] [address] | | | SERVICES, CORE | [address] [...] BUTCHER | [address] | [place], [place] | | | QUIN POINT OF CARE | [address] | [address] | | | TESTS | | | [...] BUTCHER | [address] | [place], [place] | | | QUIN POINT OF CARE | [address] | [address] | | | TESTS | | | [...] [place] | [address] | [place], [place] | | | QUIN POINT OF CARE | [address] | [address] | | | TESTS | | | [...] BUTCHER | [address] | [place], [place] | | | QUIN POINT OF CARE | [address] | [address] | | | TESTS | | | | + + + + + CBC (HEMOGRAM) ONLY (09/15/2017 5:25 AM) + + + + + | Component | Value | Ref Range | Performed At | + + + + + | WHITE CELL COUNT | 11.47 (H) | 3.50 - 10.80 K/cu mm | [facility] | | | | | SERVICES, [...] 0.0 | 0.0 - 0.3 % | [facility] | | | | | SERVICES, [...] | + + + + + | [facility] | [address] | [place] [address] | | | SERVICES, CORE | [address] | | | + + + + + PHOSPHORUS, PLASMA (09/15/2017 5:25 AM) + +---------+ + + | Component | Value | Ref Range | Performed At | + +---------+ + + | PHOSPHORUS, PLASMA | 2.2 (L) | 2.4 - 4.7 mg/dL | [facility] | | (LAB) | | | SERVICES, CORE | + +---------+ + + + + | Specimen | + + | Blood - Blood | + + + + + + + | Performing | Address | City/State/Zipcode | Phone Number | | Organization | | | | + + + + + | [facility] | [address] | [place] [address] | | | SERVICES, XENIA | PARK [...] [facility] | [address] | [place] [address] | | | XENIA LUNDBERG | [address] [...] >60 mL/min | [facility] | | [place] | | | SERVICES, CORE | + +---------+ + + | EGFR NON | >60 | >60 mL/min | [facility] | | -[place] | | | SERVICES, CORE | + [...] 24 | 21 - 32 mmol/L | [facility] | | (LAB) | | | SERVICES, CORE | + +---------+ + + | CALCIUM, PLASMA | 8.2 (L) | 8.6 - 10.2 mg/dL | [facility] | | (LAB) | | | SERVICES, CORE | + +---------+ + + | ANION GAP | 9 | 4 - 11 mmol/L | [facility] | | | | | SERVICES, CORE | + +---------+ + + | POTASSIUM CMNT | No Hemo | | [facility] | | | [...] [facility] | [address] | [place] [address] | | | SERVICES, CORE | [address] [...] BUTCHER | [address] | [place], [place] | | | TORSTEN TSAI OF [place] | [address] | [address] | | | TESTS | | | [...] BUTCHER | [address] | [place], [place] | | | TORSTEN TSAI OF CARE | [address] | [address] | | | TESTS | | | | + + + + + MODIFIED BARIUM SWALLOWING (09/14/2017 3:00 PM) + + + | Narrative | Performed At | + + + | EXAM: Modified Barium Swallow HISTORY: ORTHODONTIC TREATMENT COORDINATOR | [facility] | | recommended. Patient with [...] Note | + + | Service Account, RadiTextic Res In Interface - 09/15/2017 10:05 AM PDT EXAM: Modified | | Barium Swallow HISTORY: ORTHODONTIC TREATMENT COORDINATOR recommended. Patient with problems swallowing. Recent | [...] + + + | [facility] | [address] | [place], [place] | | | QUIN POINT OF CARE | [facility] | [address] | | | TESTS | | | [...] | 4.50 - 6.00 M/cu mm | [facility] | | | | | SERVICES, [...] (H) | 35.1 - 46.3 fL | [facility] | | | | | SERVICES, [...] 0.0 | 0.0 - 0.3 % | [facility] | | | | | SERVICES, CORE | + + + + + | NRBC# | 0.00 | 0.00 - 0.02 K/cu mm | [facility] | | | | | SERVICES, CORE | + + + + + + + | Specimen | + + | Blood - Blood | + + + + + | Narrative | Performed At | + + + | New reference ranges for MCV, MCHC, PLT, IG% and IG# effective | [facility] | | 08/04/2017 | LABORATORY | | | SERVICES, CORE | + + + + + + + + | Performing | Address | City/State/Zipcode | Phone Number | | Organization | | | | + + + + + | [facility] | [address] | [place] [address] | | | SERVICES, CORE | [address] | | | + + + + + PHOSPHORUS, PLASMA (09/14/2017 12:02 AM) + +-------+ + + | Component | Value | Ref Range | Performed At | + +-------+ + + | PHOSPHORUS, PLASMA | 3.8 | 2.4 - 4.7 mg/dL | [facility] | | (LAB) | | | XENIA LUNDBERG | + +-------+ + + + + | Specimen | + + | Blood - Blood | + + + + + + + | Performing | Address | City/State/Zipcode | Phone Number | | Organization | | | | + + + + + | [facility] | [address] | [place] [address] | | | XENIA LUNDBERG | [address] [...] | + + + + + | [facility] | [address] | [place] [address] | | | SERVICES, CORE | TESSIE [...] >60 mL/min | [facility] | | [place] | | | TAMIKA, CORE | + +---------+ + + | EGFR NON | >60 | >60 mL/min | [facility] | | -[place] | | | SERVICES, CORE | + [...] 9 | 4 - 11 mmol/L | [facility] | | | | | SERVICES, CORE | + +---------+ + + | POTASSIUM CMNT | No Hemo | | [facility] | | | [...] | + + + + + | [facility] | [address] [facility] | [place] [address] | | | XENIA LUNDBERG | [address] [...] BUTCHER | [address] | [place], [place] | | | TORSTEN TSAI OF CARE | [facility] | [address] | | | TESTS | | | [...] [place] | [address] | [place], [place] | | | TORSTEN [facility]I [facility] SA[facility] | [address] | [address] | | | TESTS | | | | + + + + + CBC (HEMOGRAM) ONLY (09/13/2017 4:25 PM) + + + + + | Component | Value | Ref Range | Performed At | + + + + + | WHITE CELL COUNT | 15.26 (H) | 3.50 - 10.80 K/cu mm | [facility] | | | [...] (H) | 35.1 - 46.3 fL | [facility] | | | | | SERVICES, CORE | + + + + + | PLATELET COUNT | 314 | 150 - 400 K/cu mm | [facility] | | | | | SERVICES, CORE | + + + + + | MPV | 10.4 | 9.7 - 12.3 fL | [facility] | | | | | SERVICES, CORE | + + + + + | NRBC% | 0.0 | 0.0 - 0.3 % | [facility] | | | | | SERVICES, CORE | + + + + + | NRBC# | 0.00 | 0.00 - 0.02 K/cu mm | [facility] | | | | | SERVICES, CORE | + + + + + + + | Specimen | + + | Blood - Blood | + + + + + | Narrative | Performed At | + + + | New reference ranges for MCV, MCHC, PLT, IG% and IG# effective | [facility] | | 08/04/2017 | LABORATORY | | | SERVICES, CORE | + + + + + + + + | Performing | Address | City/State/Zipcode | Phone Number | | Organization | | | | + + + + + | [facility] | [address] | [place] [address] | | | SERVICES, XENIA | PARK [...] >60 mL/min | [facility] | | [place] | | | SERVICES, CORE | + +---------+ + + | EGFR NON | >60 | >60 mL/min | [facility] | | -[place] | | | SERVICES, CORE | + [...] LABORATORY | | (LAB) | | | [facility] | + +---------+ + + | TOTAL CO2, PLASMA | 25 | 21 - 32 mmol/L | [facility] | | (LAB) | | | [place], [facility] | + +---------+ + + | CALCIUM, PLASMA | 7.4 (L) | 8.6 - 10.2 mg/dL | [facility] | | (LAB) | | | [place], [facility] | + +---------+ + + | CALCIUM(ALB [...] [facility] | | | | | [facility] | + +---------+ + + | ANION GAP | 7 | 4 - 11 mmol/L | [facility] | | | | | SERVICES, CORE | + +---------+ + + | ANION GAP(ALB | 11 | 4 - 11 mmol/L | [facility] | | CORRECTED) | | | SERVICES, CORE | + +---------+ + + + + | Specimen | + + | Blood - Blood | + + + + + | Narrative | Performed At | + + + | GFR is estimated using the MDRD equation recommended by the | [facility] | | National Kidney Disease [...] [facility] | [address] | [place] [address] | | | SERVICES, CORE | [address] | | | + + + + + X-RAY PORTABLE CHEST 1 VIEW (09/13/2017 3:54 PM) + + + | Narrative | Performed At | + + + | EXAM: [place] CHEST 1 VIEW HISTORY: verify central line [...] Interface - 09/13/2017 3:54 PM PDT EXAM: [place] CHEST 1 | | VIEW HISTORY: verify [...] [facility] | [address] | [place], [place] | | | [facility]ARE | [address] | [id number] | | | TESTS | | | [...] bleeding was controlled with the argon beam farm equipment engineer. Dr. Young | | | was consulted [...] case. Alex Rubin MD | | | [facility] Department of Urology [facility] | | | [place] | | + + + ABG-FULL ABL, [...] MARQUAM | [address] | [place], [place] | | | QUIN POINT OF CARE | [facility] | [address] | | | TESTS | | | [...] CHAKAQUAM | [address] | [place], [place] | | | HILL, POINT OF CARE | [facility] | [address] | | | TESTS | | | [...] | + + + + + | [facility] | [address] | [place], [place] | | | TORSTEN TSAI OF CARE | [address] | [address] | | | TESTS | | | | + + + + + SURGICAL PATHOLOGY (09/13/2017 12:02 PM) + + + + + | Component | Value | Ref Range | Performed At | + + + + + | Clinical History | N28.89 (ICD-10-CM) - | | [facility]PART[facility] | | | 593.9 (ICD-9-CM) - RENAL | | OF PATHOLOGY | | | MASS | | | + + + + + | Final Pathologic | A. Right kidney and | | [facility] | | Diagnosis [...] | SYNOPTIC REPORTS | KIDNEY: | | [facility] | | | [...] | Received are 6 specimens | | [facility] | | | fresh in containers | | OF PATHOLOGY | | | labeled with the | | | | | patient's name (initials | | | | | DG) and medical record | | | | | number [id number]. | | | | | Kidney, Right [...] | =blackSubmitted: | | | | | Teacher [employer] A1: Renal | | | | | [...] portion of | | | | | rcie-pink vessel wall. | | | | | [...] 9 | | | | | o'clock. Teacher [employer] Consumer [employer] | | | | | sections are [...] Intraoperative use | Frozen section | | [facility] | | only [...] | | | | | determined by [facility] | | | | [...] + + + + + | [facility] | [address] | [place] [address] | | | PATHOLOGY | [address] [...] + + | PRODUCT UNIT # | [id number] | | [facility] | | | [...] + + + | EXPIRATION DATE | [id number] | | [facility] | | | [...] + + | BLOOD PRODUCT CODE | [id number] | | [facility] | | | | | SERVICES, | | | | | TRANSFUSION | | | | | MEDICINE | + + + + + + + + + + | Performing | Address | City/State/Zipcode | Phone Number | | Organization | | | | + + + + + | [facility] | [address] | [place] [address] | | | SERVICES, | [address] [...] + + | PRODUCT UNIT # | [id number] | | [facility] | | | [...] + + + | EXPIRATION DATE | [id number] | | [facility] | | | [...] + + | BLOOD PRODUCT CODE | [id number] | | [facility] | | | | | SERVICES, | | | | | TRANSFUSION | | | | | MEDICINE | + + + + + + + + + + | Performing | Address | City/State/Zipcode | Phone Number | | Organization | | | | + + + + + | [facility] | [address] | [place] [address] | | | SERVICES, | [address] [...] BUTCHER | [address] | [place], [place] | | | TORSTEN TSAI OF CARE | [address] | [address] | | | TESTS | | | | + + + + + VINI-DANA MON (09/13/2017 9:39 AM) + + + + + | Component | Value | Ref Range | Performed At | + + + + + | PH ARTERIAL, POC | 7.44 | 7.37 - 7.44 | [facility] | | | | | QUIN, POINT OF | | | | | CARE TESTS | + + + + + | PO2 ARTERIAL, POC | 206 (H) | 72 - 104 mmHg | [facility] | | | | | QUIN, POINT OF | | | | | CARE TESTS | + + + + + | PCO2 ARTERIAL, POC | 38 | 32 - 43 mmHg | [facility] | | | | | [...] [facility] | [address] | [place], [place] | | | QUIN POINT OF [facility] | [address] | [address] | | | TESTS | | | [...] [facility] | [address] | [place] [address] | | | SERVICES, | [address] [...] MARQUAM | [address] | [place], [place] | | | QUIN FREEBORN OF [facility] | [address] | [address] | | | TESTS | | | [...] 2 HOURS | | | NEEDED, Starting [facility] 09/15/17 at | | | 0632, Until 09/17/17 at 1832, | | | severe pain | | + +---+ | | | + +---+ + +---------+ +---+---+---+ | HYDROmorphone 0.5 mg/mL POCKETED SPRING ASSEMBLER | New Bag | | | | | | (ADULT STANDARD DOSE) in 0.9 % | | 8 15:31 | | | | | NaCl POCKETED SPRING ASSEMBLER Dose: 0.2 mg, Lockout | | PDT [...] + + +---+---+---+ | HYDROmorphone 0.5 mg/mL POCKETED SPRING ASSEMBLER | Rate/Dos | | | | | | (ADULT STANDARD DOSE) in 0.9 % | e Verify | 8 23:29 | | | | | NaCl POCKETED SPRING ASSEMBLER Dose: 0.1 mg, Lockout | | PDT [...] | | | | | dose on [facility] 09/15/17 at 0715, | | | [...] | | | | | NEEDED, Starting [facility] 09/15/17 at | | | | [...]
--- OUTSIDE RECORDS SUMMARY | ~2017-11-22 | XMS | Encounter Summary ---
Demographics + + + | Address | [address] | | | [place] [address] | + + + | Home Phone [...] + | MILLY NGUYEN | ECON | [address] | | | | | [place], | | | | | [place] [address] | | + + + + + | Holly Burrell | ECON | Unknown | | + + + + + Care Team Providers + +------+ + | Care Assembling Inspector Name | Role | Phone | [...] | | [facility] 4th Floor Day | [address] | Dx); Right renal | | | | Stay [address] | [place], [place] | mass; Essential | | | | [facility] | [address] | hypertension; Type 2 | | | | Mailcode: UHN65 | [phone] | diabetes mellitus | | | | [address] | | with complication, | | | | [address] [place], [place] | | with long-term | | | | [address] | | current use of | | | | [phone] | | insulin ([facility]); | | | | | | Gastroesophageal [...] or walk. Surgery check-in location: Admitting - [facility], ninth floor [facility] Surgery Check in Time: The Preoperative [...] it is after office hours, call the [facility] rod bending machine operator at [phone] and ask them to page him or [...] to this patient's care. HOMERO OCAMPO MD [facility] PREOPERATIVE MEDICINE CLINIC AT [facility] 4TH FLOOR DAY STAY [address] [facility] [address] I spent time (35 minutes, >50% [...] + + | 12/20/ | Diagnostic | Cnc Machine Programmer | Nils Woody, | | | 2018 | Visit | | Keyla [facility] [address] | | | | | [address] [facility] | | | | | | Rd [place], [place] | | | | | | [address] | | | | | | | [...] DEPT OF | [address] | [place], [place] | | | CARDIOLOGY | [address] | [address] | | + + + + + CULTURE, URINE JO-ANN (09/01/2017 11:13 AM) + + + + + | Component | Value | Ref Range | Performed At | + + + + + | URINE CULTURE [facility] | Insignificant growth | | [facility] | | | (<10,000 cfu/mL) | | [facility] | + + + + + + + | Specimen | + + | Urine | + + + + + + + | Performing | Address | City/State/Zipcode | Phone Number | | Organization | | | | + + + + + | [facility] | [address] | [place] [address] | | | X[place]IA LUNDBERG | BERTHA [...] | 0.00 - 0.02 K/cu mm | [facility] | | | | | SERVICES, [...] | + + + + + | [facility] | [address] | [place] [address] | | | XENIA LUNDBERG | BERTHA [...] [facility] | [address] | [place] [address] | | | SERVICES, | [address] [...] | + + + + + | [facility] | [address] | [place] [address] | | | SERVICES, | [address] | | | | TRANSFUSION MEDICINE | | | | + + + + + FRANCI ALCARAZ (09/01/2017 11:13 AM) + + + + + | Component | Value | Ref Range | Performed At | + + + + + | COLOR(UR) | Yellow | | [facility] | | | | | TAMIKA, [...] 1.030 | [facility] | | | [place] performed by | | XENIA LUNDBERG | [...] [facility] | [address] | [place] [address] | | | SERVICES, XENIA | [address] [...] 0 | 0 - 2 /lpf | [facility] | | | | | SERVICES, CORE | + +---------+ + + | CELLULAR CASTS | 0 | <=0 /lpf | [facility] | | | | | SERVICES, CORE | + +---------+ + + | TRIPLE P04 CRYSTALS | None | None /hpf | [facility] | | | | | SERVICES, [...] CRYSTALS | None | None /hpf | [facility] | | | | | SERVICES, CORE | + +---------+ + + + + | Specimen | + + | Urine | + + + + + + + | Performing | Address | City/State/Zipcode | Phone Number | | Organization | | | | + + + + + | [facility] | [address] | [place] [address] | | | SERVICES, XENIA | BERTHA [...] | + + + + + | [facility] | [address] | [place] [address] | | | SERVICES, CORE | BERTHA [...] | [facility] | | considered for monitoring netsuite developer glycemic control in patients with: | LABORATORY [...] | + + + + + | [facility] | [address] | [place] [address] | | | SERVICES, SPECIAL | BERTHA [...] >60 mL/min | [facility] | | [address] | | | SERVICES, CORE | + +---------+ + + | EGFR NON | 55 (L) | >60 mL/min | [facility] | | -[address] | | | SERVICES, CORE | + +---------+ + + | SODIUM, PLASMA (LAB) | 135 (L) | 136 - 145 mmol/L | [facility] | | | | | SERVICES, CORE | + +---------+ + + | POTASSIUM, PLASMA | 4.6 | 3.4 - 5.0 mmol/L | [facility] | | (LAB) | | | [...] | | PLASMA (LAB) | | | [facility], CORE | + +---------+ + + | ALBUMIN, PLASMA | 3.6 | 3.5 - 4.7 g/dL | [facility] | | (LAB) | | | SERVICES, CORE | + +---------+ + + | ALK PHOS | 150 (H) | 56 - 119 U/L | [facility] | | | | | SERVICES, CORE | + +---------+ + + | AST(SGOT) | 10 | <=41 U/L | [facility] | | | | | SERVICES, CORE | + +---------+ + + | ALT (SGPT) | 14 | <=60 U/L | [facility] | | | | | [...] [facility] | [address] | [place] [address] | | | SERVICES, CORE | BERTHA [...]
--- OUTSIDE RECORDS SUMMARY | ~2017-11-22 | XMS | Encounter Summary ---
Demographics + + + | Address | [address] | | | [place] [address] | + + + | Home Phone | | + + + | Preferred Language | Unknown | + + + | Marital Status | | + + + | Druze Affiliation | Unknown | + + + | Race | Unknown | + + + | Ethnic Group | Unknown | + + + Author + + + | Author | [facility] | + + + | Organization | [facility] | + + + | Address | Unknown | + + + | Phone | Unavailable | + + + Support + + +---------+ + | Name | Relationship | Address | Phone | + + +---------+ + | Yuki Nguyen | ECON | Unknown | | + + +---------+ + Care Team Providers + +------+ + | Care Quilting Machine Helper Name | Role | Phone | + +------+ + | Jeremy Adrian MD | PCP | | + +------+ + Encounter Details +--------+ + + + + | Date | Type | Department | Care Team | Description | +--------+ + + + + | 11/17/ | Telephone | [facility] | Gracie Brooks MA | | | 2018 | | Hematology and | | | | | | Oncology [address] | | | | | | [address] | | | | | | [place] | | | | | | [address] | | | | | | [phone] | | | +--------+ + + + [...] [place] | | | | | | [address] | | | | | | | | +--------+---------+ + + + as of this encounter Visit Diagnoses Not on filein this encounter"
--- OUTSIDE RECORDS SUMMARY | ~2017-11-22 | XMS | Clinical Summary ---
Demographics + + + | Address | [address] | | | [place] [address] | + + + | Home Phone [...] + | MILLY NGUYEN | ECON | [address] | | | | | [place], | | | | | [place] [address] | | + + + + + | Holly Burrell | ECON | Unknown | | + + + + + Care Team Providers + +------+ + | Care Stone Layout Marker Name | Role | Phone | + +------+ + | Jeremy Adrian MD | PP | | + +------+ + Source Comments JO-ANN is fully live on both EpicCare Ambulatory and EpicCare InPatient.[facility] Allergies + + + + + + [...] graft done by vascular. | | Has LOCUM TENENS PSYCHIATRIST. 6.3 L crystalloid given during the case-no blood | | products given (1200 mL EBL). Did well overnight HD and with pain | | control.-Continue motta per urology -HM LOCUM TENENS PSYCHIATRIST-CLD until ELECTRONIC BENCH TECHNICIAN | | eval/uro approval-Closely monitor hemodynamics-IMC status | + + + + + | Dysphagia | 09/13/2017 | + + + + + | Last Assessment & Plan: Has had issues with swallowing and | | dysphagia for quite some time. Crushes all meds and takes them | | with applesauce. ELECTRONIC BENCH TECHNICIAN consult and recommend barium | | swallow.-CLD-Barium swallow today-ELECTRONIC BENCH TECHNICIAN following | + + + + + [...] Assessment & Plan: Well controlled with valsartan SALT REFINER. | | -Hold in post-operative period | [...] + + + + | 11/07/ | Ocean Forwarder | | Cristy Rubin MD | Dysphagia, [...] + + + + | 09/17/ | Ocean Forwarder | | Eder Gann, | Tumor of [...] | | | original. | | | [place] | | | Health and | | [...] GibbonsMRN: | | | | | | [id number] | | | ission | | | [...] | | Call: JO-ANN | | | picker machine operator | | | [phone] | | | [phone] | | | after hours | | | and ask | | | for the | | | Surgery | | | Physician | | | Hadoop Administrator, | | | Nurse or | | [...] | | Urology at | | | [facility] | | | [phone] | | | 0 Urology | | [...] | | | PGY-1Pg | | | [id number] | | | [id number] | | | [address] | | | Pk | | | [id number] | | | [place], | | | [place] | | | [phone] | | | [phone] | +---+ + [...] | | | | | | insulin ([facility]); | | | | | | Gastroesophageal [...] +--------+ +---+ + + | 08/25/ | Ocean Forwarder | | Alison Garcia | Renal mass [...] +--------+ +---+ + + | 08/23/ | Ocean Forwarder | | Alison Garcia | Renal mass, [...] | 2017 | Visit | | Keyla [facility] [address] | | | | | [address] | | | | | | [address] [place], [place] | | | | | | [address] | | | | | | | [...] | | | | | 2017 | /[id number] | | Papi Albarran MD | | | | | | [id number] | | | | | | | | 37 / | + +------+--------+ +--------+--------+--------+ | Nucleus Cochlear | | Right: | COCHLEAR | | 06/24/ | [id number] | | ImplantImplanted: Qty: 1 on | | Ear | GLENN | | 2018 | /[id number] | | 08/30/2016 by Papi Albarran | | | | | | [id number] | | EMD | | | | | | 50 / | + +------+--------+ +--------+--------+--------+ | Graft Vascular 20cm 20mm | | Right: | [facility] | | 07/20/ | [id number] | | Standard [employer] [place] | | | [employer] | | 2022 | 020 | | 20cm Sterile - | | Abdome | | | | /[id number] | | [id number]: Qty: 1 on | | n | [...] | + +---------+ + + | NON [facility] | | | | + +---------+ + + [facility] - CBC ONLY (10/06/2017 7:32 AM) + + + + + | Component | Value | Ref Range | Performed At | + + + + + | WHITE CELL COUNT | 6.09 | 3.50 - 10.80 K/cu mm | [facility] | | | | | SERVICES, [...] 45.1 | 35.1 - 46.3 fL | [facility] | | | | | SERVICES, | | | | | [facility] | [facility] + | | | | | HEALING | + + + + + | PLATELET COUNT | 451 (H) | 150 - 400 K/cu mm | [facility] | | | | | SERVICES, | | | | | [facility] | | | | | [facility] + | | | | | HEALING | + + + + + | MPV | 10.7 | 9.7 - 12.3 fL | [facility] | | | | | SERVICES, [...] | + + + + + | [facility] | [address] | [place] [address] | | | SERVICES, [place] [facility] | | | | | HE[facility] + HEALING | | | | + + + + + CH - COMPLETE METABOLIC SET (10/06/2017 7:32 AM) + + + + + | Component | Value | Ref Range | Performed At | + + + + + | GLUCOSE, PLASMA | 81 | 70 - 99 mg/dL | [facility] | | (LAB) | | | SERVICES, | | | | | [facility] | | | | | [facility]ALTH + | | | | | HEALING | + + + + + | BUN, PLASMA (LAB) | 20 | 6 - 20 mg/dL | [facility] | | | | | SERVICES, | | | | | [facility] | | | | | [facility] + | | | | | HEALING | + + + + + | CREATININE PLASMA | 1.40 (H) | 0.70 - 1.30 mg/dL | [facility] | | (LAB) | | | SERVICES, | | | | | [facility] | | | | | HEALTH + | | | | | HEALING | + + + + + | SODIUM, PLASMA (LAB) | 137 | 134 - 143 mmol/L | [facility] | | | | | SERVICES, [...] | + + + + + | [facility] | [address] | [place] [address] | | | [facility] FOR | | | | | HEALTH [...] | Antibody Screen | Negative | | [facility] | | | | | [facility], | | | | | TRANSFUSION | | | | | MEDICINE | + + + + + + + | Specimen | + + | Blood - Blood | + + + + + + + | Performing | Address | City/State/Zipcode | Phone Number | | Organization | | | | + + + + + | [facility] | [address] | [place] [address] | | | SERVICES, | [address] [...] | + + + + + | [facility] | [address] | [place] [address] | | | TAMIKA | [address] [...] | + + + + + | [facility] | [address] | [place], [place] | | | [facility] | [address] | [address] | | | TESTS | | | [...] | 3.50 - 10.80 K/cu mm | [facility] | | | | | SERVICES, [...] [facility] | [address] | [place] [address] | | | SERVICES, CORE | [address] [...] | + + + + + | [facility] | [address] [facility] | [place] [address] | | | SERVICES, CORE | [address] | | | + + + + + MAGNESIUM, PLASMA (09/17/2017 4:50 AM)Only the most recent of 4 results within the time joesph dudley is included. + +-------+ + + | Component | Value | Ref Range | Performed At | + +-------+ + + | MAGNESIUM,PLASMA | 2.0 | 1.6 - 2.6 mg/dL | [facility] | | | | | SERVICES, [...] | + + + + + | [facility] | [address] | [place] [address] | | | SERVICES, CORE | [address] | | | + + + + + MODIFIED BARIUM SWALLOWING (09/14/2017 3:00 PM) + + + | Narrative | Performed At | + + + | EXAM: Modified Barium Swallow HISTORY: ELECTRONIC BENCH TECHNICIAN | JO-ANN | | recommended. Patient with [...] EXAM: Modified | | Barium Swallow HISTORY: ELECTRONIC BENCH TECHNICIAN recommended. Patient with problems swallowing. Recent | [...] Note | + + | Service Account, Redu.us Res In Interface - 09/15/2017 10:05 AM [...] >60 mL/min | [facility] | | GHANAIAN | | | SERVICES, CORE | + +---------+ + + | EGFR NON | >60 | >60 mL/min | [facility] | | -GHANAIAN | | | SERVICES, CORE | + [...] | | (LAB) | | | SERVICES, [facility] | + +---------+ + + | CALCIUM, PLASMA | 7.4 (L) | 8.6 - 10.2 mg/dL | [facility] | | (LAB) | | | SERVICES, CORE | + +---------+ + + | CALCIUM(ALB | 8.8 | 8.6 - 10.2 mg/dL | [facility] | | CORRECTED) | | | [facility], [facility] | + +---------+ + + | ALBUMIN, [...] | + + + + + | [facility] | [address] | [place] [address] | | | SERVICES, CORE | [address] | | | + + + + + X-RAY PORTABLE CHEST 1 VIEW (09/13/2017 3:54 PM) + + + | Narrative | Performed At | + + + | EXAM: TX CHEST 1 VIEW HISTORY: verify central line [...] Interface - 09/13/2017 3:54 PM PDT EXAM: TX CHEST 1 | | VIEW HISTORY: verify [...] bleeding was controlled with the argon beam paste plant supervisor. Dr. Young | | | was [...] Alex Rubin MD | | | Video Producer Department of Urology [facility] | | | [place] | | + + + ABG-FULL ABL, [...] - [place] | | | | | QUNI POINT OF | | | | | [...] BUTCHER | [address] | [place], [place] | | | [facility] | [address] | [address] | | | TESTS | | | | + + + + + SURGICAL PATHOLOGY (09/13/2017 12:02 PM) + + + + + | Component | Value | Ref Range | Performed At | + + + + + | Clinical History | N28.89 (ICD-10-CM) - | | [facility] | | | 593.9 (ICD-9-CM) - RENAL | | OF PATHOLOGY | | | MASS | | | + + + + + | Final Pathologic | A. Right kidney and | | [facility] | | Diagnosis | adrenal gland, [...] | SYNOPTIC REPORTS | KIDNEY: | | [facility] | | | Nephrectomy (Kidney | [...] | Received are 6 specimens | | [facility] | | | fresh in containers | | OF PATHOLOGY | | | labeled with the | | | | | patient's name (initials | | | | | DG) and medical record | | | | | number [id number]. | | | | | Kidney, Right [...] | =blackSubmitted: | | | | | Bag Bundler A1: Renal | | | | | [...] 9 | | | | | o'clock. Bag Bundler | | | | | sections are [...] Intraoperative use | Frozen section | | [facility] | | only - Final | [...] | ANCILLARY | Analyte specific | | [facility] | | INFORMATION | reagents are [...] | | | | | determined by [facility] | | | | | laboratories. It [...] | + + + + + | [facility] | [address] | [place] [address] | | | PATHOLOGY | [address] [...] | -1 RED BLOOD CELL | | [facility] | | | ADENINE-SALINE ADDED | | SERVICES, | | | LEUKOCYTE | | TRANSFUSION | | | | | MEDICINE | + + + + + | PRODUCT UNIT # | [id number] | | [facility] | | | [...] + + + | EXPIRATION DATE | [id number] | | [facility] | | | [...] + + | BLOOD PRODUCT CODE | [id number] | | [facility] | | | | | SERVICES, | | | | | TRANSFUSION | | | | | MEDICINE | + + + + + + + + + + | Performing | Address | City/State/Zipcode | Phone Number | | Organization | | | | + + + + + | [facility] | [address] | [place] [address] | | | TAMIKA | [address] [...] | + + + + + | [facility] | [address] | [place] [address] | | | SERVICES, | [address] [...] DEPT OF | [address] | [place], [place] | | | CARDIOLOGY | [address] | [address] | | + + + + + [...] | + + + + + | [facility] | [address] [facility] [facility] | [place] [address] | | | SERVICES, CORE | [address] [...] >60 mL/min | [facility] | | GHANAIAN | | | SERVICES, CORE | + +---------+ + + | EGFR NON | 55 (L) | >60 mL/min | [facility] | | -GHANAIAN | | | TAMIKA, CORE | + [...] | + + + + + | [facility] | [address] | [place] [address] | | | TAMIKA, XENIA | [address] | | | + + + + + FRANCI ALCARAZ ONLY (09/01/2017 11:13 AM) + + + + + | Component | Value | Ref Range | Performed At | + + + + + | COLOR(UR) | Yellow | | [facility] | | | | | TAMIKA CORE | + + + + + | APPEARANCE | Sl.Cloudy | | [facility] | | | | | TAMIKA, [...] 1.012Comment: Specific | 1.005 - 1.030 | [facility] | | | Muldoon performed by | | XENIA LUNDBERG | [...] [facility] | [address] | [place] [address] | | | XENIA LUNDBERG | [address] | | | + + + + + URINE, MICROSCOPIC EXAM (09/01/2017 11:13 AM) + +---------+ + + | Component | Value | Ref Range | Performed At | + +---------+ + + | RED CELLS | 17 (H) | 0 - 3 /hpf | [facility] | | | | | SERVICES, [...] CASTS | 0 | <=0 /lpf | [facility] | | | | | SERVICES, CORE | + +---------+ + + | TRIPLE P04 CRYSTALS | None | None /hpf | [facility] | | | | | SERVICES, CORE | + +---------+ + + | CALCIUM OXALATE JEFFERSON | None | None /hpf | [facility] | | | | | SERVICES, CORE | + +---------+ + + | URIC ACID CRYSTALS | None | None /hpf | [facility] | | | | | SERVICES, [...] | + + + + + | [facility] | [address] | [place] [address] | | | SERVICES, CORE | TESSIE [...] [facility] | [address] | [place] [address] | | | SERVICES, CORE | TESSIE [...] [facility] | | considered for monitoring terminal block assembler glycemic control in patients with: | LABORATORY [...] | + + + + + | [facility] | [address] [facility] [address] | [place] [address] | | | SERVICES, SPECIAL | TESSIE [...] Diane Crowe MD 09/01/2017 9:03 AM Preliminary: iDane | | | Leanna Crowe MD Dictation [...] POINT | [address] | [place] [address] | | | OF CARE TESTS | [...] | PPO | +1- | [address] [address] [place] | | SHIELD | E BCBS | x | | [phone] | [place], [place] | | | | | | | [address] | + +--------+ +------+ + + + [...] | | | christos | | | [address]48 | [address] | + +--------+ +--------+ + +
--- OUTSIDE RECORDS SUMMARY | ~2017-11-22 | XMS | Encounter Summary ---
Demographics + + + | Address | [address] | | | [place] [address] | + + + | Home Phone | | + + + | Preferred Language | Unknown | + + + | Marital Status | | + + + | Baptism Affiliation | Unknown | + + + | Race | Unknown | + + + | Ethnic Group | Unknown | + + + Author + + + | Author | [facility] | + + + | Organization | [facility] | + + + | Address | Unknown | + + + | Phone | Unavailable | + + + Support + + +---------+ + | Name | Relationship | Address | Phone | + + +---------+ + | Yuki Nguyen | ECON | Unknown | | + + +---------+ + Care Team Providers + +------+ + | Care Manager Welding Name | Role | Phone | + +------+ + PCP | Unavailable | + +------+ + Reason for Visit +--------+ + | Reason | Comments | +--------+ + | Other | DIAGNOSTICS, [facility] | +--------+ + Encounter Details +--------+ + + + + | Date | Type | Department | Care Team | Description | +--------+ + + + + | 08/31/ | Documentati | [facility] | Gabriella, | Other (DIAGNOSTICS, | | 2018 | on Only | Hematology and | Stephanie Dubon MD | [facility]) | | | | Oncology [address] | | | | | [address] | [place] | | | | | [place] | [address] | | | | | [address] | | | | | | [phone] | | | +--------+ + + + [...] [place] | | | | | | [address] | | | | | | | | +--------+---------+ + + + as of this encounter Visit Diagnoses Not on filein this encounter"
--- OUTSIDE RECORDS SUMMARY | ~2017-11-22 | XMS | Encounter Summary ---
Demographics + + + | Address | [address] | | | [place] [address] | + + + | Home Phone [...] + | MILLY NGUYEN | ECON | [address] | | | | | [place], | | | | | [place] [address] | | + + + + + | Holly Burrell | ECON | Unknown | | + + + + + Care Team Providers + +------+ + | Care Traveling Sales Representative Name | Role | Phone | [...] [address] | [place]ie [facility], | ([facility]) (Primary Dx) | | | | [facility] | [place] [address] | | | | | Mailcode: OP11 | [phone] | | | | | Physicians [address] | | | | | | [place], [place] | | | | | | [address] | | | | | | [phone] | | | +--------+---------+ + + + [...] Farhat Mathews MD - 10/21/2017 2:00 PM [id number] 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 Lives in [facility] and will be following up with medical oncology in [place]. He should follow up with us with [...] + + | 12/20/ | Diagnostic | Wellness Trainer | Nils Woody, | | | 2017 | Visit | | [address] | | | | [address] | | | | | | [place], [place] | | | | | | [address] | | | | | | | | +--------+ + + + + as of this encounter Visit Diagnoses + + | Diagnosis | + + | Renal cell carcinoma of right kidney (HCC) - Primary | + +"
--- OUTSIDE RECORDS SUMMARY | ~2017-11-22 | XMS | Encounter Summary ---
Demographics + + + | Address | [address] | | | [place] [address] | + + + | Home Phone [...] + | MILLY NGUYEN | ECON | [address] | | | | | [place], | | | | | [place] [address] | | + + + + + | Holly Burrell | ECON | Unknown | | + + + + + Care Team Providers + +------+ + | Care Machine Hoop Maker Helper Name | Role | Phone | [...] | | | | | | [place] [address] | [place], [place] | | | | | | Phone: | [address] | | | | | | [phone] | Phone: | | | | | | Fax: | [phone] | | | | | | [phone] | Fax: | | | | | | | [phone] | +--------+--------+ + + + + Encounter Details +--------+---------+ + + + | Date | Type | Department | Care Team | Description | +--------+---------+ + + + | 09/01/ | Office | Urology at [facility] | Cristy Rubin MD | Renal cell carcinoma | | 2018 | Visit | [address] | [address] | of right kidney | | | | Mail Code: CH10U | [place], [place] | ([facility]) (Primary Dx) | | | | [facility] | [address] | | | | | and | [phone] | | | | | Floor [place], [place] | | | | | | [address] | | | | | | [phone] | | | +--------+---------+ + + + [...] Patient Visit Referring Physician: Cristy Rubin MD [address] [place] [address] Identification: 71 y.o. 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 Current Outpatient Prescriptions Medication Sig acetaminophen 500 [...] possible vena caval grafting. 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
--- OUTSIDE RECORDS SUMMARY | ~2017-11-22 | XMS | Encounter Summary ---
Demographics + + + | Address | [address] | | | [place] [address] | + + + | Home Phone | | + + + | Preferred Language | Unknown | + + + | Marital Status | | + + + | Yazidism Affiliation | Unknown | + + + | Race | Unknown | + + + | Ethnic Group | Unknown | + + + Author + + + | Author | [facility] | + + + | Organization | [facility] | + + + | Address | Unknown | + + + | Phone | Unavailable | + + + Support + + +---------+ + | Name | Relationship | Address | Phone | + + +---------+ + | Yuki Nguyen | ECON | Unknown | | + + +---------+ + Care Team Providers + +------+ + | Care Handmade Tile Artist Name | Role | Phone | + [...] | | Dx) | | | | [address] | | | +--------+ + + + [...] [place] | | | | | | [address] | | | | | | | | +--------+---------+ + + + as of this encounter Visit Diagnoses + + | Diagnosis | + + | Cancer of kidney, right (HCC) - Primary | + +"
--- OUTSIDE RECORDS SUMMARY | ~2017-11-22 | XMS | Encounter Summary ---
Demographics + + + | Address | [address] | | | [place] [address] | + + + | Home Phone | | + + + | Preferred Language | Unknown | + + + | Marital Status | | + + + | Mormonism Affiliation | LDS | + + + | Race | White | + + + | Ethnic Group | Not or | + + + Author + + + | Author | [facility] | + + + | Organization | [facility] | + + + | Address | Unknown | + + + | Phone | Unavailable | + + + Support + + + + + | Name | Relationship | Address | Phone | + + + + + | MILLY NGUYEN | ECON | [address] | | | | | [place], | | | | | [place] [address] | | + + + + + | Holly Burrell | ECON | Unknown | | + + + + + Care Team Providers + +------+ + | Care Prosthetics Lab Technician Name | Role | Phone | + +------+ + | Jeremy Adrian MD | PCP | | + +------+ + Encounter Details +--------+ + + + + | Date | Type | Department | Care Team | Description | +--------+ + + + + | 08/26/ | Procedure | Radiology/Imaging | | | | 2018 | Pass | Lab at [facility] [address] | | | | | | [address] | | | | | | Mailcode: CH3G | | | | | | [facility] | | | | | | and [address], [address]rd | | | | | | Floor [place], [place] | | | | | | [address] | | | | | | [phone] | | | +--------+ + + + [...] + | 12/20/ | Diagnostic | Hand Tile Maker | Nils Woody, | | | 2018 | Visit | | [facility] [address] | | | | | | [address] | | | | | | [place], [place] | | | | | | [address] | | | | | | | | +--------+ + + + + as of this encounter Visit Diagnoses Not on filein this encounter"
--- OUTSIDE RECORDS SUMMARY | ~2017-11-22 | XMS | Encounter Summary ---
Demographics + + + | Address | [address] | | | [place] [address] | + + + | Home Phone | | + + + | Preferred Language | Unknown | + + + | Marital Status | | + + + | Buddhism Affiliation | LDS | + + + | Race | White | + + + | Ethnic Group | Not or | + + + Author + + + | Author | [facility] | + + + | Organization | [facility] | + + + | Address | Unknown | + + + | Phone | Unavailable | + + + Support + + + + + | Name | Relationship | Address | Phone | + + + + + | MILLY NGUYEN | ECON | [address] | | | | | [place], | | | | | [place] [address] | | + + + + + [...] | consultation | | | | Jimmy [facility] | [address] [place], | | | | | [facility] Mailcode: [facility] | [place] [address] | | | | | [place], [place] | | | | | | [address] | | | | | | [phone] | | | +--------+ + + + [...] + + | 12/20/ | Diagnostic | Counter Clerk [employer] Equipment Parts | Nils Woody, | | | 2017 | Visit | | [address] | | | | | [address] | | | | | | [place], [place] | | | | | | [phone] | | | | | | | | +--------+ + + + + as of this encounter Visit Diagnoses Not on filein this encounter"
--- OUTSIDE RECORDS SUMMARY | ~2017-11-22 | XMS | Encounter Summary ---
Demographics + + + | Address | [address] | | | [place] [address] | + + + | Home Phone | | + + + | Preferred Language | Unknown | + + + | Marital Status | | + + + | Restorationist Affiliation | LDS | + + + | Race | White | + + + | Ethnic Group | Not or | + + + Author + + + | Author | [facility] | + + + | Organization | [facility] | + + + | Address | Unknown | + + + | Phone | Unavailable | + + + Support + + + + + | Name | Relationship | Address | Phone | + + + + + | MILLY NGUYEN | ECON | [address] | | | | | [place], | | | | | [place] [address] | | + + + + + | Holly Otoole ECON | Unknown | | + + + + + Care Team Providers + +------+ + | Care Statistics Tutor Name | Role | Phone | + +------+ + | Jeremy Adrian MD | PCP | | + +------+ + Encounter Details +--------+ + + + + | Date | Type | Department | Care Team | Description | +--------+ + + + + | 10/10/ | Abstract | Urology at [facility] | Cristy Rubin MD | | | 2017 | | [address] | [address] | | | | | Mail Code: CH10U | [place], [place] | | | | | [facility] | [address] | | | | | and [address] | [phone] | | | | | Floor [place], [place] | | | | | | [address] | | | | | | [phone] | | | +--------+ + + + [...] + + | 12/20/ | Diagnostic | Real Estate Operations Manager | Nils Woody, | | | 2017 | Visit | | [address] | | | | | [address] | | | | | | [place] | | | | | | [address] | | | | | | | | +--------+ + + + + as of this encounter Visit Diagnoses Not on filein this encounter"
--- OUTSIDE RECORDS SUMMARY | ~2017-11-22 | XMS | Encounter Summary ---
Demographics + + + | Address | [address] | | | [place] [address] | + + + | Home Phone [...] + | MILLY NGUYEN | ECON | [address] | | | | | [place], | | | | | [place] [address] | | + + + + + | Holly Burrell | ECON | Unknown | | + + + + + Care Team Providers + +------+ + | Care Leather Flesher Name | Role | Phone | + [...] | // | Telephone | Urology at [facility] | Cristy Rubin MD | Postoperative Check | | 2018 | | [address] | [address] | (Labs) | | | | Mail Code: CH10U | [place], [place] | | | | | [facility] | [address] | | | | | and | [phone] | | | | | Floor [place], [place] | | | | | | [address] | | | | | | [phone] | | | +--------+ + + + [...] + + | 12/20/ | Diagnostic | Customer Associate | Nils Woody, | | | 2017 | Visit | | [address] | | | | | | SARAH [facility] | | | | | | [place], [place] | | | | | | [address] | | | | | | | [...] 20 | 6 - 20 mg/dL | [facility] | | | | | [...] (H) | 6.1 - 7.9 g/dL | [facility] | | PLASMA (LAB) | | [...] | + + + + + | [facility] | [address] | [place] [address] | | | SERVICES, [place] [facility] | | | | | HEALTH [...] 10.7 | 9.7 - 12.3 fL | [facility] | | | | | [facility], | | | | | [place] [facility] | | | | | HEALTH + | | | | | HEALING | + + + + + + + | Specimen | + + | Blood - Blood | + + + + + + + | Performing | Address | City/State/Zipcode | Phone Number | | Organization | | | | + + + + + | [facility] | [address] | [place] [address] | | | SERVICES, [place] [facility] | | | | | HEALTH + HEALING | | | | + + + + + in this encounter Visit Diagnoses + + | Diagnosis | + + | Right renal mass - Primary | + + | Unspecified disorder of kidney and ureter | + +"
--- OUTSIDE RECORDS SUMMARY | ~2017-11-22 | XMS | Encounter Summary ---
Demographics + + + | Address | [address] | | | [place] [address] | + + + | Home Phone | | + + + | Preferred Language | Unknown | + + + | Marital Status | | + + + | Episcopalian Affiliation | LDS | + + + [...] + | MILLY NGUYEN | ECON | [address] | | | | | [place], | | | | | [place] [address] | | + + + + + | Holly Burrell | ECON | Unknown | | + + + + + Care Team Providers + +------+ + | Care Stone Rubber Name | Role | Phone | [...] | // | Telephone | Urology at [facility] | Cristy Rubin MD | Postoperative Check | | 2018 | | [address] | [address] | (Labs) | | | | Mail Code: CH10U | [place], [place] | | | | | [facility] | [address] | | | | | and | [phone] | | | | | Floor [place], [place] | | | | | | [address] | | | | | | [phone] | | | +--------+ + + + [...] + + | 12/20/ | Diagnostic | Financial Processing Clerk | Nils Woody, | | | 2017 | Visit | | [address] | | | | | | SARAH [facility] | | | | | | Sal [place], [place] | | | | | | [address] | | | | | | | [...] 20 | 6 - 20 mg/dL | [facility] | | | | | [...] (H) | 6.1 - 7.9 g/dL | [facility] | | PLASMA (LAB) | [...] | + + + + + | [facility] | [address] | [place] [address] | | | SERVICES, [place] [facility] | | | | | HEALTH [...] 10.7 | 9.7 - 12.3 fL | [facility] | | | | | [facility], | | | | | [place] [facility] | | | | | HEALTH + | | | | | HEALING | + + + + + + + | Specimen | + + | Blood - Blood | + + + + + + + | Performing | Address | City/State/Zipcode | Phone Number | | Organization | | | | + + + + + | [facility] | [address] | [place] [address] | | | SERVICES, [place] [facility] | | | | | HEALTH + HEALING | | | | + + + + + in this encounter Visit Diagnoses + + | Diagnosis | + + | Right renal mass - Primary | + + | Unspecified disorder of kidney and ureter | + +"
--- OUTSIDE RECORDS SUMMARY | ~2017-11-22 | XMS | Encounter Summary ---
Demographics + + + | Address | [address] | | | [place] [address] | + + + | Home Phone | | + + + | Preferred Language | Unknown | + + + | Marital Status | | + + + | Rastafarian Affiliation | Unknown | + + + | Race | Unknown | + + + | Ethnic Group | Unknown | + + + Author + + + | Author | [facility] | + + + | Organization | [facility] | + + + | Address | Unknown | + + + | Phone | Unavailable | + + + Support + + +---------+ + | Name | Relationship | Address | Phone | + + +---------+ + | Yuki Nguyen | ECON | Unknown | | + + +---------+ + Care Team Providers + +------+ + | Care Plant Anatomy Teacher Name | Role | Phone | [...] + + | 11/17/ | Office | [facility] | Gabriella, | Cancer of kidney, | | 2018 | Visit | Hematology and | Stephanie Dubon MD | right (HCC) (Primary | | | | Oncology [address] | Dx); Encounter for | | | | [address] | [place] | chemotherapy | | | | [place] | [address] | management | | | | [address] | | | | | | [phone] | | | +--------+---------+ + + + [...] may be diffe rent from the original. [facility] Hematology & Oncology Oncology Progress Note Patient [...] metastatic di sease. He was referred to [facility] and underwent open right radical nephrectomy along [...] WITH AUTOMATED RESULTS. Final Testing performed at [facility];[address] [place] [address];[place] [address] SODIUM 10/31/2017 139 135 - 145 mmol/L [...] MDRD IDMS traceable equation. Testing performed at [facility];[address] [place] [address] MAGNESIUM 10/31/2017 2.5* 1.7 - 2.4 mg/dL Final Testing performed at [facility];[address] [place] [address] INR 10/31/2017 1.0 Final Comment: REFERENCE RANGE: 0.9 - 1.2 NON-ANTICOAGULATED 2.0 - 3.0 ALL OTHER THERAPEUTIC INDICATIONS 2.5 - 3.5 MECHANICAL HEART VALVES, RECURRENT OR SYSTEMIC EMBOLISM Testing performed at [facility];[address] [place] [address] APTT 10/31/2017 30 23 - 32 seconds Final Testing performed at [facility];[address] [place] [address] LIPASE 10/31/2017 146 73 - 393 U/L Final Testing performed at [facility];[address] [place] [address] COLOR UA 10/31/2017 COLORLESS Final CLARITY 10/31/2017 CLEAR Final Specific [place], UA 10/31/2017 1.006 1.002 - 1.030 Final LEUKOCYTE ESTERASE 10/31/2017 NEGATIVE NEGATIVE Final NITRITE 10/31/2017 NEGATIVE NEGATIVE Final UROBILINOGEN 10/31/2017 NORMAL <1.1 mg/dL Final PROTEIN 10/31/2017 NEGATIVE NEGATIVE mg/dL Final PH,URINE 10/31/2017 7.0 5.0 - 8.0 Final BLOOD 10/31/2017 NEGATIVE NEGATIVE Final KETONES 10/31/2017 NEGATIVE NEGATIVE mg/dL Final BILIRUBIN 10/31/2017 NEGATIVE NEGATIVE Final GLUCOSE 10/31/2017 >500* NEGATIVE mg/dL Final Testing performed at [facility];[address] [place] [address];[place] [address] Assessment Mr. 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 All the patient's questions were answered to his satisfaction. Greater than 25 minutes wer e spent examining the patient, review of medical records, counseling, coordination of care, and CPOE. More than 50% of that time was spent in thsy-il-kbes encounter. Stephanie Quiroz MD [facility] Hematology & Oncology 11/17/2017 Portions of this [...] [place] | | | | | | [address] | | | | | | | [...]
--- OUTSIDE RECORDS SUMMARY | ~2017-11-22 | XMS | Encounter Summary ---
Demographics + + + | Address | [address] | | | [place] [address] | + + + | Home Phone | | + + + | Preferred Language | Unknown | + + + | Marital Status | | + + + | Scientology Affiliation | Unknown | + + + | Race | Unknown | + + + | Ethnic Group | Unknown | + + + Author + + + | Author | [facility] | + + + | Organization | [facility] [facility] | + + + | Address | Unknown | + + + | Phone | Unavailable | + + + Support + + +---------+ + | Name | Relationship | Address | Phone | + + +---------+ + | Yuki Nguyen | ECON | Unknown | | + + +---------+ + Care Team Providers + +------+ + | Care Satellite Technician Name | Role | Phone | [...] + + | 09/13/ | Documentati | [facility] | Gabriella, | Other (PATH/OP NOTE, | | 2017 | on Only | Hematology and | Stephanie Dubon MD | [facility]) | | | | Oncology [address] | [address] | | | | | [address] | [place] | | | | | [place] | [address] | | | | | [address] | | | | | | [phone] | | | +--------+ + + + [...] [place] | | | | | | [address] | | | | | | | | +--------+---------+ + + + as of this encounter Visit Diagnoses Not on filein this encounter"
--- OUTSIDE RECORDS SUMMARY | ~2017-11-22 | XMS | Encounter Summary ---
Demographics + + + | Address | [address] | | | [place] [address] | + + + | Home Phone [...] + | MILLY NGUYEN | ECON | [address] | | | | | [place], | | | | | [place] [address] | | + + + + + | Holly Otoole ECON | Unknown | | + + + + + Care Team Providers + +------+ + | Care Staple Processing Machine Operator Name | Role | Phone | + +------+ + | Jeremy Adrian MD | PCP | | + +------+ + Encounter Details +--------+ + + + + | Date | Type | Department | Care Team | Description | +--------+ + + + + | 09/07/ | Abstract | Urology at [facility] | Cristy Rubin MD | | | 2017 | | [address] | [address] | | | | | Mail Code: CH10U | [place], [place] | | | | | [facility] | [address] | | | | | and Filiberto | [phone] | | | | | Floor [place], [place] | | | | | | [address] | | | | | | [phone] | | | +--------+ + + + [...] + + | 12/20/ | Diagnostic | Heavy Equipment Operator Apprentice | Nils Woody, | | | 2017 | Visit | | [address] | | | | | | [address] | | | | | | [place], [place] | | | | | | [address] | | | | | | | | +--------+ + + + + as of this encounter Visit Diagnoses Not on filein this encounter"
--- OUTSIDE RECORDS SUMMARY | ~2017-11-22 | XMS | Encounter Summary ---
Demographics + + + | Address | [address] | | | [place] [address] | + + + | Home Phone | | + + + | Preferred Language | Unknown | + + + | Marital Status | | + + + | Yazdanism Affiliation | LDS | + + + [...] + | MILLY NGUYEN | ECON | [address] | | | | | [place], | | | | | [place] [address] | | + + + + + | Holly Burrell | ECON | Unknown | | + + + + + Care Team Providers + +------+ + | Care Pockets And Pieces Necktie Operator Name | Role | Phone | [...] | 09/02/ | Telephone | Urology at [facility] | Alison Garcia | Care Management | | 2018 | | [address] | [address] | (Record Request) | | | | Mail Code: CH10U | [address] | | | | | [facility] | [place], [place] | | | | | and | [address] | | | | | Floor [place], [place] | [phone] | | | | | [address] | | | | | | [phone] | | | +--------+ + + + [...] + + | 12/20/ | Diagnostic | Java Web User Interface Developer | Nils Woody, | | | 2017 | Visit | | [address] | | | | | | [address] Marquez [facility] | | | | | | [place] | | | | | | [phone] | | | | | | | | +--------+ + + + + as of this encounter Visit Diagnoses Not on filein this encounter"
--- OUTSIDE RECORDS SUMMARY | ~2017-11-22 | XMS | Encounter Summary ---
Demographics + + + | Address | [address] | | | [place] [address] | + + + | Home Phone | | + + + | Preferred Language | Unknown | + + + | Marital Status | | + + + | Yazidism Affiliation | LDS | + + + | Race | White | + + + | Ethnic Group | Not or | + + + Author + + + | Author | [facility] | + + + | Organization | [facility] | + + + | Address | Unknown | + + + | Phone | Unavailable | + + + Support + + + + + | Name | Relationship | Address | Phone | + + + + + | MILLY NGUYEN | ECON | [address] | | | | | [place], | | | | | [place] [address] | | + + + + + | Holly Burrell | ECON | Unknown | | + + + + + Care Team Providers + +------+ + | Care Invas Tech Name | Role | Phone | + [...] | | | | CT ABDOMEN | [place], [place] | [facility] | | | | | [place] | [address] | for Health | | | | | CONTRAST [place] | Phone: | and Healing, | | | | | CT SCAN OF | [phone] | 3rd Floor | | | | | ABDOMEN | Fax: | [place], [place] | | | | | COMBO | [phone] | [address] | | | | | | | Phone: | | | | | | | [phone] | | | | | | | Fax: | | | | | | | [phone] | +--------+--------+ + + + + Reason for Visit + + + | Reason | Comments | + + + | Care Management | | + + + Encounter Details +--------+ + + + + | Date | Type | Department | Care Team | Description | +--------+ + + + + | 08/25/ | Telephone | Urology at [facility] | Cristy Rubin MD | Care Management | | 2017 | | [address] | [address] | | | | | Mail Code: CH10U | [place], [place] | | | | | [facility] | [address] | | | | | and | [phone] | | | | | Floor [place], [place] | | | | | | [address] | | | | | | [phone] | | | +--------+ + + + [...] + + | 12/20/ | Diagnostic | Marketing Account Executive | Nils Woody, | | | 2017 | Visit | | Keyla [facility] [address] | | | | | | SARAH [facility] | | | | | | [place], [place] | | | | | | [address] | | | | | | | [...]
--- OUTSIDE RECORDS SUMMARY | ~2017-11-22 | XMS | Encounter Summary ---
Demographics + + + | Address | [address] | | | [place] [address] | + + + | Home Phone | | + + + | Preferred Language | Unknown | + + + | Marital Status | | + + + | Rastafari Affiliation | Unknown | + + + | Race | Unknown | + + + | Ethnic Group | Unknown | + + + Author + + + | Author | [facility] | + + + | Organization | [facility] | + + + | Address | Unknown | + + + | Phone | Unavailable | + + + Support + + +---------+ + | Name | Relationship | Address | Phone | + + +---------+ + | Yuki Nguyen | ECON | Unknown | | + + +---------+ + Care Team Providers + +------+ + | Care Watch And Clock Maker And Repairer Name | Role | Phone | [...] + + | 08/31/ | Documentati | [facility] | Gabriella, | Other (DIAGNOSTICS, | | 2018 | on Only | Hematology and | Stephanie Dubon MD | [facility]) | | | | Oncology [address] | | | | | [address] | [place] | | | | | [place] | [address] | | | | | [address] | | | | | | [phone] | | | +--------+ + + + [...] [place] | | | | | | [address] | | | | | | | | +--------+---------+ + + + as of this encounter Visit Diagnoses Not on filein this encounter"
--- OUTSIDE RECORDS SUMMARY | ~2017-11-22 | XMS | Encounter Summary ---
Demographics + + + | Address | [address] | | | [place] [address] | + + + | Home Phone [...] + | MILLY NGUYEN | ECON | [address] | | | | | [place], | | | | | [place] [address] | | + + + + + | Hloly Burrell | ECON | Unknown | | + + + + + Care Team Providers + +------+ + | Care Fitness Director Name | Role | Phone | [...] | | | CT ABDOMEN | [facility], [place] | [facility] | | | | | [place] | [address] | for Health | | | | | [place] | Phone: | and Healing, | | | | | CT SCAN OF | [phone] | 3rd Floor | | | | | ABDOMEN | Fax: | [place], [place] | | | | | COMBO | [phone] | [address] | | | | | | | Phone: | | | | | | | [phone] | | | | | | | Fax: | | | | | | | [phone] | +--------+--------+ + + + + Diagnostic [...] | | | | CT ABDOMEN | [place], [place] | [address] | | | | | [place] | [address] | for Health | | | | | [place] | Phone: | and Healing, | | | | | CT SCAN OF | [phone] | 3rd Floor | | | | | ABDOMEN | Fax: | [place], [place] | | | | | COMBO | [phone] | [address] | | | | | | | Phone: | | | | | | | [phone] | | | | | | | Fax: | | | | | | | [phone] | +--------+--------+ + + + + Reason [...] | | | CT ABDOMEN | [facility], [place] | [facility] | | | | | [place] | [address] | for Health | | | | | [place] | Phone: | and Healing, | | | | | CT SCAN OF | [phone] | 3rd Floor | | | | | ABDOMEN | Fax: | [place], [place] | | | | | COMBO | [phone] | [address] | | | | | | | Phone: | | | | | | | [phone] | | | | | | | Fax: | | | | | | | [phone] | +--------+--------+ + + + + Encounter Details +--------+ + + + + | Date | Type | Department | Care Team | Description | +--------+ + + + + | 08/31/ | Hospital | Radiology/Imaging | Cristy Rubin MD | | | 2018 | Encounter | Lab at [facility] [address] | | | | | [address] | [place], [place] | | | | | Mailcode: CH3G | [address] | | | | | [facility] | [phone] | | | | | and Healing, [facility] | | | | | | Floor [place], [place] | | | | | | [address] | | | | | | [phone] | | | +--------+ + + + [...] + + | 12/20/ | Diagnostic | Bdr | Nils Woody, | | | 2018 | Visit | | Keyla [facility] [address] | | | | | | [address] | | | | | | [place], [place] | | | | | | [address] | | | | | | | [...] | [facility] | [address] [facility] | [place] [address] | | | OF CARE TESTS | [...]
--- OUTSIDE RECORDS SUMMARY | ~2017-11-22 | XMS | Encounter Summary ---
Demographics + + + | Address | [address] | | | [place] [address] | + + + | Home Phone | | + + + | Preferred Language | Unknown | + + + | Marital Status | | + + + | Rastafari Affiliation | Unknown | + + + | Race | Unknown | + + + | Ethnic Group | Unknown | + + + Author + + + | Author | [facility] [facility] | + + + | Organization | [facility] | + + + | Address | Unknown | + + + | Phone | Unavailable | + + + Support + + +---------+ + | Name | Relationship | Address | Phone | + + +---------+ + | Yuki Nguyen | ECON | Unknown | | + + +---------+ + Care Team Providers + +------+ + | Care Metal Tester Name | Role | Phone | + [...] + + | 09/01/ | Documentati | [facility] | Gabriella, | Other (MARINA WU, | | 2018 | on Only | Hematology and | Stephanie Dubon MD | [facility]) | | | | Oncology [address] | | | | | [address] | [place] | | | | | [place] | [address] | | | | | [address] | | | | | | [phone] | | | +--------+ + + + [...] [place] | | | | | | [address] | | | | | | | | +--------+---------+ + + + as of this encounter Visit Diagnoses Not on filein this encounter"
--- OUTSIDE RECORDS SUMMARY | ~2017-11-22 | XMS | Encounter Summary ---
Demographics + + + | Address | [address] | | | [place] [address] | + + + | Home Phone | | + + + | Preferred Language | Unknown | + + + | Marital Status | | + + + | Zoroastrian Affiliation | Unknown | + + + | Race | Unknown | + + + | Ethnic Group | Unknown | + + + Author + + + | Author | [facility] | + + + | Organization | [facility] | + + + | Address | Unknown | + + + | Phone | Unavailable | + + + Support + + +---------+ + | Name | Relationship | Address | Phone | + + +---------+ + | Yuki Nguyen | ECON | Unknown | | + + +---------+ + Care Team Providers + +------+ + | Care Blanking Press Operator Name | Role | Phone | [...] + + | 08/31/ | Documentati | [facility] | Gabriella, | Other (DIAGNOSTICS, | | 2018 | on Only | Hematology and | Stephanie Dubon MD | [facility]) | | | | Oncology [address] | | | | | [address] | [place] | | | | | [place] | [address] | | | | | [address] | | | | | | [phone] | | | +--------+ + + + [...] [place] | | | | | | [address] | | | | | | | | +--------+---------+ + + + as of this encounter Visit Diagnoses Not on filein this encounter"
--- OUTSIDE RECORDS SUMMARY | ~2017-11-22 | XMS | Encounter Summary ---
Demographics + + + | Address | [address] | | | [place] [address] | + + + | Home Phone | | + + + | Preferred Language | Unknown | + + + | Marital Status | | + + + | Catholic Affiliation | Unknown | + + + | Race | Unknown | + + + | Ethnic Group | Unknown | + + + Author + + + | Author | [facility] [employer] [facility] | + + + | Organization | [facility] [employer] [facility] | + + + | Address | Unknown | + + + | Phone | Unavailable | + + + Support + + +---------+ + | Name | Relationship | Address | Phone | + + +---------+ + | Yuki Nguyen | ECON | Unknown | | + + +---------+ + Care Team Providers + +------+ + | Care Rag Cutting Machine Operator Name | Role | Phone [...] + + | 11/17/ | Documentati | [facility] | Nanda Vaughan | Oncology Nurse | | 2018 | on Only | Hematology and | C, RN | Navigation | | | | Oncology [address] | | | | | | [address] | | | | | | [place] | | | | | | [address] | | | | | | [phone] | | | +--------+ + + + [...] [place] | | | | | | [address] | | | | | | | | +--------+---------+ + + + as of this encounter Visit Diagnoses Not on filein this encounter"
--- OUTSIDE RECORDS SUMMARY | ~2017-11-22 | XMS | Encounter Summary ---
Demographics + + + | Address | [address] | | | [place] [address] | + + + | Home Phone | | + + + | Preferred Language | Unknown | + + + | Marital Status | | + + + | Latter-Day Affiliation | LDS | + + + [...] + | MILLY NGUYEN | ECON | [address] | | | | | [place], | | | | | [place] [address] | | + + + + + | Holly Burrell | ECON | Unknown | | + + + + + Care Team Providers + +------+ + | Care Teacher Dramatics Name | Role | Phone | + [...] | | | | | SURGERY | [place], [place] | [place], [place] | | | | | [address] | [address] | [address] | | | | | [place] REM[place] | Phone: | Phone: | | | | | KIDNEY,RADIC | [phone] | [phone] | | | | | [place] | Fax: | Fax: | | | | | [facility] | [phone] | [phone] | | | | | OPY, [facility] [...] | | | | | WWO | [facility] [place] | | | | | | CONTRAST | [address] | | | | | | | Phone: | | | | | | | [phone] | | | | | | | Fax: | | | | | | | [phone] | | + +--------+ + + + + Encounter Details +--------+ + + + + | Date | Type | Department | Care Team | Description | +--------+ + + + + | 08/24/ | Orders Only | Urology at [facility] | Cristy Rubin MD | Renal mass (Primary | | 2018 | | [address] | [address] | Dx) | | | | Mail Code: CH10U | [facility] [place] | | | | | [facility] | [address] | | | | | and | [phone] | | | | | Floor [facility] [place] | | | | | | [address] | | | | | | [phone] | | | +--------+ + + + [...] + | 12/20/ | Diagnostic | Police Lieutenant Patrol | Nils Woody, | | | 2018 | Visit | | [address] | | | | | | SAR[address] Marquez [facility] | | | | | | [place], [place] | | | | | | [address] | | | | | | | [...]
--- OUTSIDE RECORDS SUMMARY | ~2017-11-22 | XMS | Encounter Summary ---
Demographics + + + | Address | [address] | | | [place] [address] | + + + | Home Phone | | + + + | Preferred Language | Unknown | + + + | Marital Status | | + + + | Latter Day Affiliation | Unknown | + + + | Race | Unknown | + + + | Ethnic Group | Unknown | + + + Author + + + | Author | [facility] [employer] [facility] | + + + | Organization | [facility] [employer] [facility] | + + + | Address | Unknown | + + + | Phone | Unavailable | + + + Support + + +---------+ + | Name | Relationship | Address | Phone | + + +---------+ + | Yuki Nguyen | ECON | Unknown | | + + +---------+ + Care Team Providers + +------+ + | Care Metal Grader Name | Role | Phone | [...] [place] | | | | | | [address] | | | +--------+ + + + [...] as of this encounter Progress Tequila Montes, [facility] - 10/10/2017 12:02 PM PDTFormatting of this note may be different from t he original. [facility] Hematology and Oncology Clinical Pharmacy New Patient [...] for: CA199 CA 27,29:No results found for: VY5555 CEA:No results found for: CEA HCG:No results [...] [place] | | | | | | [address] | | | | | | | | +--------+---------+ + + + as of this encounter Visit Diagnoses Not on filein this encounter"
--- OUTSIDE RECORDS SUMMARY | ~2017-11-22 | XMS | Encounter Summary ---
Demographics + + + | Address | [address] | | | [place] [address] | + + + | Home Phone | | + + + | Preferred Language | Unknown | + + + | Marital Status | | + + + | Yarsani Affiliation | Unknown | + + + | Race | Unknown | + + + | Ethnic Group | Unknown | + + + Author + + + | Author | [facility] | + + + | Organization | [facility] [employer] [facility] | + + + | Address | Unknown | + + + | Phone | Unavailable | + + + Support + + +---------+ + | Name | Relationship | Address | Phone | + + +---------+ + | Yuki Nguyen | ECON | Unknown | | + + +---------+ + Care Team Providers + +------+ + | Care Induction Coordination Power Engineer Name | Role | Phone | [...] + + | 10/04/ | Documentati | [facility] | Nanda Vaughan | Oncology Nurse | | 2018 | on Only | Hematology and | C, RN | Navigation | | | | Oncology [address] | | | | | | [address] | | | | | | [place] | | | | | | [address] | | | | | | [phone] | | | +--------+ + + + [...] Yes Completed by? Patient Contact phone number [phone] Distress rating 0-10 1 Practical Problems None Emotional Problems Anger Request for Resources None Family Problems None Fatigue rating 0-10 3 Physical problems Eating concerns;Weight loss Interventions: Patient and live in [place], [place]. Patient still works at [employer] and is [facility] [employer] through his employment. He stated that "medicare [...] also send a message t o the apparel cutter to reach out to the patient to [...] MD | | | | | | [address] | | | | | | [place] | | | | | | [address] | | | | | | | | +--------+---------+ + + + as of this encounter Visit Diagnoses Not on filein this encounter
--- OUTSIDE RECORDS SUMMARY | ~2017-11-22 | XMS | Encounter Summary ---
Demographics + + + | Address | [address] | | | [place] [address] | + + + | Home Phone [...] + + + | Author | [facility] | + + + | Organization | [facility] | + + + | Address | Unknown | + + + | Phone | Unavailable | + + + Support + + + + + | Name | Relationship | Address | Phone | + + + + + | MILLY NGUYEN | ECON | [address] | | | | | [place], | | | | | [place] [address] | | + + + + + | Holly Burrell | ECON | Unknown | | + + + + + Care Team Providers + +------+ + | Care Medical Coordinator Pesticide Use Name | Role | Phone | + +------+ + | Jeremy Adrian MD | PCP | | + +------+ + Encounter Details +--------+ + + + + | Date | Type | Department | Care Team | Description | +--------+ + + + + | 08/23/ | Forex Trader | Urology at [facility] | Alison Garcia | Renal mass, right | | 2018 | | [address] | [address] | (Primary Dx) | | | | Mail Code: CH10U | [address] | | | | | [facility] | [place], [place] | | | | | and , | [address] | | | | | Floor [place], [place] | [phone] | | | | | [address] | | | | | | [phone] | | | +--------+ + + + [...] + + | 12/20/ | Diagnostic | Adjuster Piano Action | Nils Woody, | | | 2017 | Visit | | [address] | | | | | | [address] [facility] | | | | | | Rd [place], [place] | | | | | | [address] | | | | | | | [...] Note | + + | Service Account, Trust[employer] Res In Interface - 08/24/2017 2:16 PM [...]
--- OUTSIDE RECORDS SUMMARY | ~2017-11-22 | XMS | Encounter Summary ---
Demographics + + + | Address | [address] | | | [place] [address] | + + + | Home Phone | | + + + | Preferred Language | Unknown | + + + | Marital Status | | + + + | Amish Affiliation | Unknown | + + + | Race | Unknown | + + + | Ethnic Group | Unknown | + + + Author + + + | Author | [facility] | + + + | Organization | [facility] | + + + | Address | Unknown | + + + | Phone | Unavailable | + + + Support + + +---------+ + | Name | Relationship | Address | Phone | + + +---------+ + | Yuki Nguyen | ECON | Unknown | | + + +---------+ + Care Team Providers + +------+ + | Care Shake Table Operator Name | Role | Phone | [...] + + | 09/13/ | Documentati | [facility] | Gabriella, | Other (PATH/OP NOTE, | | 2017 | on Only | Hematology and | Stephanie Dubon MD | [facility]) | | | | Oncology [address] | | | | | [address] | [place] | | | | | [place] | [address] | | | | | [address] | | | | | | [phone] | | | +--------+ + + + [...] [place] | | | | | | [address] | | | | | | | | +--------+---------+ + + + as of this encounter Visit Diagnoses Not on filein this encounter"
--- OUTSIDE RECORDS SUMMARY | ~2017-11-22 | XMS | Encounter Summary ---
Demographics + + + | Address | [address] | | | [place] [address] | + + + | Home Phone | | + + + | Preferred Language | Unknown | + + + | Marital Status | | + + + | Mu-Ism Affiliation | Unknown | + + + | Race | Unknown | + + + | Ethnic Group | Unknown | + + + Author + + + | Author | [facility] | + + + | Organization | [facility] | + + + | Address | Unknown | + + + | Phone | Unavailable | + + + Support + + +---------+ + | Name | Relationship | Address | Phone | + + +---------+ + | Yuki Nguyen | ECON | Unknown | | + + +---------+ + Care Team Providers + +------+ + | Care Java Lead Name | Role | Phone | [...] + + | 10/12/ | Documentati | [facility] | Marc Chinchilla | Medication Refill | | 2018 | on Only | Hematology and | | (Sunitinib; Oral | | | | Oncology [address] | | chemo - New ) | | | | [address] | | | | | | [place] | | | | | | [address] | | | | | | [phone] | | | +--------+ + + + [...] back. Provided alternate ph one number from [facility]. Stephie will try that number Mayda Rain, [...] She verba lized understanding. Pt educated on estate planning attorney role, phone number given.Marc Chinchilla - 10/12/2017 11:34 AM PD TSunitinib approved by insurance, expires 10/11/18. Script faxed to [facility] per insurance mandate in this encounter Plan of Treatment +--------+---------+ + + + | Date | Type | Specialty | Care Team | Description | +--------+---------+ + + + | 12/21/ | Office | Hematology and | Gabriella, | | | 2017 | Visit | Oncology | Stephanie Dubon MD | | | | | | [address] | | | | | | [place] | | | | | | [address] | | | | | | | | +--------+---------+ + + + as of this encounter Visit Diagnoses Not on filein this encounter
--- OUTSIDE RECORDS SUMMARY | ~2017-11-22 | XMS | Encounter Summary ---
Demographics + + + | Address | [address] | | | [place] [address] | + + + | Home Phone [...] + | MILLY NGUYEN | ECON | [address] | | | | | [place], | | | | | [place] [address] | | + + + + + | Holly Burrell | ECON | Unknown | | + + + + + Care Team Providers + +------+ + | Care Padded Box Sewer Name | Role | Phone | + +------+ + | Jeremy Adrian MD | PCP | | + +------+ + Encounter Details +--------+ + + + + | Date | Type | Department | Care Team | Description | +--------+ + + + + | 09/13/ | Document-Sc | UNKNOWN DEPARTMENT | Other, Faculty | | | 2018 | anned | [address] [facility] | [phone] | | | | | [facility] | | | | | | [place], [place] | | | | | | [address] | | | +--------+ + + + [...] + + | 12/20/ | Diagnostic | Central Sterile Tech | Nils Woody, | | | 2018 | Visit | | Keyla [facility] | | | | | | [address] | | | | | | [place], [place] | | | | | | [address] | | | | | | | | +--------+ + + + + as of this encounter Visit Diagnoses Not on filein this encounter"
--- OUTSIDE RECORDS SUMMARY | ~2017-11-22 | XMS | Encounter Summary ---
Demographics + + + | Address | [address] | | | [place] [address] | + + + | Home Phone | | + + + | Preferred Language | Unknown | + + + | Marital Status | | + + + | Yarsani Affiliation | Unknown | + + + | Race | Unknown | + + + | Ethnic Group | Unknown | + + + Author + + + | Author | [facility] | + + + | Organization | [facility] | + + + | Address | Unknown | + + + | Phone | Unavailable | + + + Support + + +---------+ + | Name | Relationship | Address | Phone | + + +---------+ + | Yuki Nguyen | ECON | Unknown | | + + +---------+ + Care Team Providers + +------+ + | Care Molding Process Technician Name | Role | Phone | [...] [place] | | | | | | [address] | | | +--------+ + + + [...] [place] | | | | | | [address] | | | | | | | | +--------+---------+ + + + as of this encounter Visit Diagnoses Not on filein this encounter"
--- OUTSIDE RECORDS SUMMARY | ~2017-11-22 | XMS | Encounter Summary ---
Demographics + + + | Address | [address] | | | [place] [address] | + + + | Home Phone [...] + | MILLY NGUYEN | ECON | [address] | | | | | [place], | | | | | [place] [address] | | + + + + + | Holly Burrell | ECON | Unknown | | + + + + + Care Team Providers + +------+ + | Care Flight Instructor Name | Role | Phone | + +------+ + | Jeremy Adrian MD | PCP | | + +------+ + Encounter Details +--------+ + + + + | Date | Type | Department | Care Team | Description | +--------+ + + + + | 09/02/ | Telephone | Urology at [facility] | Cristy Rubin MD | | | 2018 | | [address] | [address] | | | | | Mail Code: CH10U | [place], [place] | | | | | [facility] | [address] | | | | | and [address] | [phone] | | | | | Floor [place], [place] | | | | | | [address] | | | | | | [phone] | | | +--------+ + + + [...] + | 12/20/ | Diagnostic | Corporate Sales Representative | Nils Woody, | | | 2017 | Visit | | [address] | | | | | | [address] | | | | | | [place] | | | | | | [address] | | | | | | | | +--------+ + + + + as of this encounter Visit Diagnoses Not on filein this encounter"
--- OUTSIDE RECORDS SUMMARY | ~2017-11-22 | XMS | Encounter Summary ---
Demographics + + + | Address | [address] | | | [place] [address] | + + + | Home Phone | | + + + | Preferred Language | Unknown | + + + | Marital Status | | + + + | Buddhist Affiliation | LDS | + + + [...] + | MILLY NGUYEN | ECON | [address] | | | | | [place], | | | | | [place] [address] | | + + + + + | Holly Burrell | ECON | Unknown | | + + + + + Care Team Providers + +------+ + | Care Central Supply Manager Name | Role | Phone | [...] | | | | | SURGERY | [place], [place] | [place] | | | | | HOTEL GENERAL MANAGER | [address] | [address] | | | | | [place] | Phone: | Phone: | | | | | KIDNEY,RADIC | [phone] | [phone] | | | | | [place] | Fax: | Fax: | | | | | [facility] | [phone] | [phone] | | | | | OPY, CHST [...] | | | | | WWO | [facility] [place] | | | | | | CONTRAST | [address] | | | | | | | Phone: | | | | | | | [phone] | | | | | | | Fax: | | | | | | | [phone] | | + +--------+ + + + + Encounter Details +--------+ + + + + | Date | Type | Department | Care Team | Description | +--------+ + + + + | 08/24/ | Orders Only | Urology at [facility] | Cristy Rubin MD | Renal mass (Primary | | 2018 | | [address] | [address] | Dx) | | | | Mail Code: CH10U | [facility] [place] | | | | | [facility] | [address] | | | | | and | [phone] | | | | | Floor [facility] [place] | | | | | | [address] | | | | | | [phone] | | | +--------+ + + + [...] + + | 12/20/ | Diagnostic | Death Claim Examiner | Nils Woody, | | | 2018 | Visit | | [address] | | | | | | [address] [facility] | | | | | | Sal [place], [place] | | | | | | [address] | | | | | | | [...]
--- OUTSIDE RECORDS SUMMARY | ~2017-11-22 | XMS | Encounter Summary ---
Demographics + + + | Address | [address] | | | [place] [address] | + + + | Home Phone [...] + | MILLY NGUYEN | ECON | [address] | | | | | [place], | | | | | [place] [address] | | + + + + + | Holly Otoole ECON | Unknown | | + + + + + Care Team Providers + +------+ + | Care Local Combination Truck Driver Name | Role | Phone | + +------+ + | Jeremy Adrian MD | PCP | | + +------+ + Encounter Details +--------+ + + + + | Date | Type | Department | Care Team | Description | +--------+ + + + + | 08/25/ | Abstract | Urology at [facility] | Cristy Rubin MD | | | 2017 | | [address] | [address] | | | | | Mail Code: CH10U | [place], [place] | | | | | [facility] | [address] | | | | | and [address] | [phone] | | | | | Floor [place], [place] | | | | | | [address] | | | | | | [phone] | | | +--------+ + + + [...] + + | 12/20/ | Diagnostic | Instrumentation Instructor | Nils Woody, | | | 2017 | Visit | | [address] | | | | | | [address] | | | | | | [place], [place] | | | | | | [address] | | | | | | | | +--------+ + + + + as of this encounter Visit Diagnoses Not on filein this encounter"
--- OUTSIDE RECORDS SUMMARY | ~2017-11-22 | XMS | Encounter Summary ---
Demographics + + + | Address | [address] | | | [place] [address] | + + + | Home Phone | | + + + | Preferred Language | Unknown | + + + | Marital Status | | + + + | Protestant Affiliation | Unknown | + + + | Race | Unknown | + + + | Ethnic Group | Unknown | + + + Author + + + | Author | [email or web address] | + + + | Organization | [email or web address] | + + + | Address | Unknown | + + + | Phone | Unavailable | + + + Support + + +---------+ + | Name | Relationship | Address | Phone | + + +---------+ + | Yuki Nguyen | ECON | Unknown | | + + +---------+ + Care Team Providers + +------+ + | Care Envelope Stuffer Name | Role | Phone | + +------+ + PCP | Unavailable | + +------+ + Reason for Visit +--------+ + | Reason | Comments | +--------+ + | Triage | | +--------+ + Encounter Details +--------+ + + + + | Date | Type | Department | Care Team | Description | +--------+ + + + + | 10/14/ | Telephone | [facility] | Odette Dill RN | Triage | | 2018 | | Hematology and | | | | | | Oncology Infusions | | | | | | [address] | | | | | | [place] | | | | | | [address] | | | +--------+ + + + [...] MD | | | | | | [address] | | | | | | [place] | | | | | | [address] | | | | | | | | +--------+---------+ + + + as of this encounter Visit Diagnoses Not on filein this encounter"
--- OUTSIDE RECORDS SUMMARY | ~2017-11-22 | XMS | Encounter Summary ---
Demographics + + + | Address | [address] | | | [place] [address] | + + + | Home Phone | | + + + | Preferred Language | Unknown | + + + | Marital Status | | + + + | Restorationist Affiliation | LDS | + + + | Race | White | + + + | Ethnic Group | Not or | + + + Author + + + | Author | [facility] | + + + | Organization | [facility] | + + + | Address | Unknown | + + + | Phone | Unavailable | + + + Support + + + + + | Name | Relationship | Address | Phone | + + + + + | MILLY NGUYEN | ECON | [address] | | | | | [place], | | | | | [place] [address] | | + + + + + | Holly Burrell | ECON | Unknown | | + + + + + Care Team Providers + +------+ + | Care Learning Administrator Name | Role | Phone | + [...] | | | | Tumor of | [address]ation Equipment Tender [address], | | | | | | right kidney | ,[address] | | | | | | with | [address] | | | | | | thrombus of | [address] | | | | | | IVC (HCC) | Rd | | | | | | Procedures | [place], [place] | | | | | | [facility] | [address] | | | | | | ABDOMINAL | Phone: | | | | | | [address]LEX [address] | [phone] | | | | | | [address] VE[address] | Fax: | | | | | | | [phone] | | + +--------+ + + + [...] | | | | Tumor of | [place] [address], | | | | | | right kidney | ,[address] | | | | | | with | [address] | | | | | | thrombus of | [address] | | | | | | IVC (HCC) | Rd | | | | | | Procedures | [place], [place] | | | | | | [facility] | [address] | | | | | | ABDOMINAL | Phone: | | | | | | DUPLEX LTD | [phone] | | | | | | ARTERY VEIN | Fax: | | | | | | | [phone] | | + +--------+ + + + [...] | | | | Tumor of | [place] [address], | | | | | | right kidney | MD,MPH [address] | | | | | | with | [address] | | | | | | thrombus of | [address] | | | | | | IVC (HCC) | Rd | | | | | | Procedures | [place], [place] | | | | | | [facility] | [address] | | | | | | ABDOMINAL | Phone: | | | | | | DUPLEX LTD | [phone] | | | | | | [address] | Fax: | | | | | | | [phone] | | + +--------+ + + + [...] | [address] | Tessie Huang [place], | | | | | [place]ie [place], | [place] [address] | | | | | [place] [address] | [phone] | | | | | [phone] | | | +--------+ + + + [...] + + | 12/20/ | Diagnostic | Warehouse Representative | Nils Woody, | | | 2018 | Visit | | [address]ATH[address] | | | | | | SARAH Marquez [facility] | | | | | | Rd [place], [place] | | | | | | [address] | | | | | | | [...] of IVC ([facility]) | results section. | + +--------+ + [...] + + | Performing | Address | City/State[facility] | Phone Number | | Organization [...]
--- OUTSIDE RECORDS SUMMARY | ~2017-11-22 | XMS | Encounter Summary ---
Demographics + + + | Address | [address] | | | [place] [address] | + + + | Home Phone [...] + | MILLY NGUYEN | ECON | [address] | | | | | [place], | | | | | [place] [address] | | + + + + + | oHlly Burrell | ECON | Unknown | | + + + + + Care Team Providers + +------+ + | Care Child Care Education Coordinator Name | Role | Phone | [...] | Malignant | Jeremy Maynard, | Oncology [facility] | | | | | neoplasm [...] | | | | | | [place] [address] | [place], [place] | | | | | | Phone: | [address] | | | | | | [phone] | Phone: | | | | | | Fax: | [phone] | | | | | | [phone] | Fax: | | | | | | | [phone] | +--------+--------+ + + + + Encounter Details +--------+---------+ + + + | Date | Type | Department | Care Team | Description | +--------+---------+ + + + | 09/01/ | Office | Urology at [facility] | Rn, Uro [address] | Renal cell carcinoma | | 2018 | Visit | [address] | [address] [place] | of right kidney | | | | Mail Code: CH10U | Road [facility] [place] | (HCC) (Primary Dx) | | | | [facility] | [address] | | | | | and Healing, | | | | | | Floor [place], [place] | | | | | | [address] | | | | | | [phone] | | | +--------+---------+ + + + [...] of this diet are: Water, Valentina beatrice, Lemon-king salmon soft drinks, Apple juice, Tea or c [...] your [facility] provider at [phone] to see if you need to take [...] speak to the Urology Resident who is diamond cleaver.in this encounter Progress Notes Madi Fleming RN [...] + + | 12/20/ | Diagnostic | Woodwork Teacher | Nils Woody, | | | 2017 | Visit | | [address] | | | | | | SARAH [facility] | | | | | | Sal [place], [place] | | | | | | [address] | | | | | | | | +--------+ + + + + as of this encounter Visit Diagnoses + + | Diagnosis | + + | Renal cell carcinoma of right kidney (HCC) - Primary | + +
--- OUTSIDE RECORDS SUMMARY | ~2017-11-22 | XMS | Encounter Summary ---
Demographics + + + | Address | [address] | | | [place] [address] | + + + | Home Phone | | + + + | Preferred Language | Unknown | + + + | Marital Status | | + + + | Congregation Affiliation | LDS | + + + [...] + | MILLY NGUYEN | ECON | [address] | | | | | [place], | | | | | [place] [address] | | + + + + + | Holly Burrell | ECON | Unknown | | + + + + + Care Team Providers + +------+ + | Care Administrative And Program Specialist Name | Role | Phone | [...] [address] | | | | | | ([facility]) | [address] | | | | | | Procedures | [place], [place] | | | | | | CONSULT TO | [address] | | | | | | HEMATOLOGY / | Phone: | | | | | | ONCOLOGY | [phone] | | | | | | PRACTICE | Fax: | | | | | | | [phone] | | + +--------+ + + + + Encounter Details +--------+ + + + + | Date | Type | Department | Care Team | Description | +--------+ + + + + | 09/19/ | Telephone | Urology at [facility] | Alison Garcia | | | 2018 | | [address] | [address] | | | | | Mail Code: CH10U | [address] | | | | | [facility] | [place], [place] | | | | | and [address], | [address] | | | | | Floor [place], [place] | [phone] | | | | | [address] | | | | | | [phone] | | | +--------+ + + + [...] + + | 12/20/ | Diagnostic | Table Worker Packager | Nils Woody, | | | 2017 | Visit | | Keyla [facility] [address] | | | | | | [address] | | | | | | [place], [place] | | | | | | [address] | | | | | | | | +--------+ + + + + as of this encounter Visit Diagnoses + + | Diagnosis | + + | Renal cell carcinoma, unspecified laterality (HCC) - Primary | + +"
--- OUTSIDE RECORDS SUMMARY | ~2017-11-22 | XMS | Encounter Summary ---
Demographics + + + | Address | [address] | | | [place] [address] | + + + | Home Phone | | + + + | Preferred Language | Unknown | + + + | Marital Status | | + + + | Tenriism Affiliation | Unknown | + + + | Race | Unknown | + + + | Ethnic Group | Unknown | + + + Author + + + | Author | [facility] | + + + | Organization | [facility] | + + + | Address | Unknown | + + + | Phone | Unavailable | + + + Support + + +---------+ + | Name | Relationship | Address | Phone | + + +---------+ + | Yuki Nguyen | ECON | Unknown | | + + +---------+ + Care Team Providers + +------+ + | Care Warehouse Specialist Name | Role | Phone | [...] + + | 11/14/ | Documentati | [facility] | Gabriella, | Sangeetha (DR. REY | | 2018 | on Only | Hematology and | Stephanie Dubon MD | GABRIELLA, | | | | Oncology [address] | [facility] ) | | | | [address] | [place] | | | | | [place] | [address] | | | | | [address] | | | | | | [phone] | | | +--------+ + + + [...] | | | | | [address] | | | | | | [place] | | | | | | [address] | | | | | | | | +--------+---------+ + + + as of this encounter Visit Diagnoses Not on filein this encounter"
--- OUTSIDE RECORDS SUMMARY | ~2017-11-22 | XMS | Encounter Summary ---
Demographics + + + | Address | [address] | | | [place] [address] | + + + | Home Phone | | + + + | Preferred Language | Unknown | + + + | Marital Status | | + + + | Hinduism Affiliation | Unknown | + + + | Race | Unknown | + + + | Ethnic Group | Unknown | + + + Author + + + | Author | [facility] | + + + | Organization | [facility] | + + + | Address | Unknown | + + + | Phone | Unavailable | + + + Support + + +---------+ + | Name | Relationship | Address | Phone | + + +---------+ + | Yuki Nguyen | ECON | Unknown | | + + +---------+ + Care Team Providers + +------+ + | Care Correspondence Section Supervisor Name | Role | Phone | [...] + + | 09/23/ | Documentati | [facility] | Gabriella, | Other (CONSULT, | | 2018 | on Only | Hematology and | Stephanie Dubon MD | GABRIELLA/REFERRAL | | | | Oncology [address] | [address] | , [place]ITI) | | | | [address] | [place] | | | | | [place] | [address] | | | | | [address] | | | | | | [phone] | | | +--------+ + + + [...] [place] | | | | | | [address] | | | | | | | | +--------+---------+ + + + as of this encounter Visit Diagnoses Not on filein this encounter"
--- OUTSIDE RECORDS SUMMARY | ~2017-11-22 | XMS | Encounter Summary ---
Demographics + + + | Address | [address] | | | [place] [address] | + + + | Home Phone | | + + + | Preferred Language | Unknown | + + + | Marital Status | | + + + | Shinto Affiliation | Unknown | + + + | Race | Unknown | + + + | Ethnic Group | Unknown | + + + Author + + + | Author | [facility] | + + + | Organization | [facility] | + + + | Address | Unknown | + + + | Phone | Unavailable | + + + Support + + +---------+ + | Name | Relationship | Address | Phone | + + +---------+ + | Yuki Nguyen | ECON | Unknown | | + + +---------+ + Care Team Providers + +------+ + | Care Air Hammer Stripper Name | Role | Phone | + +------+ + PCP | Unavailable | + +------+ + Encounter Details +--------+ + + + + | Date | Type | Department | Care Team | Description | +--------+ + + + + | 10/13/ | Telephone | [facility] | [facility] | | | 2018 | | Hematology and | EMILI Harris | | | | | Oncology [address] | | | | | [address] | | | | | | [place] | | | | | | [address] | | | | | | [phone] | | | +--------+ + + + [...] [place] | | | | | | [id number] | | | | | | | | +--------+---------+ + + + as of this encounter Visit Diagnoses Not on filein this encounter"
--- OUTSIDE RECORDS SUMMARY | ~2017-11-22 | XMS | Encounter Summary ---
Demographics + + + | Address | [address] | | | [place] [address] | + + + | Home Phone | | + + + | Preferred Language | Unknown | + + + | Marital Status | | + + + | Mormon Affiliation | LDS | + + + | Race | White | + + + | Ethnic Group | Not or | + + + Author + + + | Author | [facility] | + + + | Organization | [facility] | + + + | Address | Unknown | + + + | Phone | Unavailable | + + + Support + + + + + | Name | Relationship | Address | Phone | + + + + + | MILLY NGUYEN | ECON | [address] | | | | | [place], | | | | | [place] [address] | | + + + + + | Holly Burrell | ECON | Unknown | | + + + + + Care Team Providers + +------+ + | Care Presser And Blocker Knitted Goods Name | Role | Phone | + [...] | | | | | | [place] [address] | [place], [place] | | | | | | Phone: | [address] | | | | | | [phone] | Phone: | | | | | | Fax: | [phone] | | | | | | [phone] | Fax: | | | | | | | [phone] | +--------+--------+ + + + + Encounter Details +--------+---------+ + + + | Date | Type | Department | Care Team | Description | +--------+---------+ + + + | 09/01/ | Office | Urology at [facility] | Cristy Rubin MD | Renal cell carcinoma | | 2018 | Visit | [address] | [address] | of right kidney | | | | Mail Code: CH10U | [place], [place] | ([facility]) (Primary Dx) | | | | [facility] | [address] | | | | | and | [phone] | | | | | Floor [place], [place] | | | | | | [address] | | | | | | [phone] | | | +--------+---------+ + + + [...] Patient Visit Referring Physician: Cristy Rubin MD [address] [place] [address] Identification: 71 y.o. 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 Current Outpatient Prescriptions Medication Sig acetaminophen 500 [...] possible vena caval grafting. Alex Rubin MD Cushion Maker Department of Urology [facility] & [facility] [place] in this encounter Plan of Treatment +--------+ + + + + | Date | Type | Specialty | Care Team | Description | +--------+ + + + + | 12/20/ | Diagnostic | Fertilizer Loader | Nils Woody, | | | 2018 | Visit | | Keyla [facility] [address] | | | | | | [address] | | | | | | [place], [place] | | | | | | [address] | | | | | | | | +--------+ + + + + as of this encounter Visit Diagnoses + + | Diagnosis | + + | Renal cell carcinoma of right kidney (HCC) - Primary | + +
--- OUTSIDE RECORDS SUMMARY | ~2017-11-22 | XMS | Encounter Summary ---
Demographics + + + | Address | [address] | | | [place] [address] | + + + | Home Phone | | + + + | Preferred Language | Unknown | + + + | Marital Status | | + + + | Church Affiliation | LDS | + + + [...] + | MILLY NGUYEN | ECON | [address] | | | | | [place], | | | | | [place] [address] | | + + + + + | Holly Otoole ECON | Unknown | | + + + + + Care Team Providers + +------+ + | Care Collection Systems Foreman Name | Role | Phone | + +------+ + | Jeremy Adrian MD | PCP | | + +------+ + Encounter Details +--------+ + + + + | Date | Type | Department | Care Team | Description | +--------+ + + + + | 08/25/ | Abstract | Urology at [facility] | Cristy Rubin MD | | | 2017 | | [address] | [address] | | | | | Mail Code: CH10U | [place], [place] | | | | | [facility] | [address] | | | | | and [address] | [phone] | | | | | Floor [place], [place] | | | | | | [address] | | | | | | [phone] | | | +--------+ + + + [...] + + | 12/20/ | Diagnostic | Talent Advisor | Nils Woody, | | | 2017 | Visit | | [address] | | | | | | [address] | | | | | | [place], [place] | | | | | | [address] | | | | | | | | +--------+ + + + + as of this encounter Visit Diagnoses Not on filein this encounter"
--- OUTSIDE RECORDS SUMMARY | ~2017-11-22 | XMS | Encounter Summary ---
Demographics + + + | Address | [address] | | | [place] [address] | + + + | Home Phone [...] + + + | Author | [facility] | + + + | Organization | [facility] | + + + | Address | Unknown | + + + | Phone | Unavailable | + + + Support + + + + + | Name | Relationship | Address | Phone | + + + + + | MILLY NGUYEN | ECON | [address] | | | | | [place], | | | | | [place] [address] | | + + + + + | Holly Burrell | ECON | Unknown | | + + + + + Care Team Providers + +------+ + | Care Synthetic Department Supervisor Name | Role | Phone | [...] | 09/09/ | Telephone | Urology at [facility] | Cristy Rubin MD | Pre-op evaluation | | 2018 | | [address] | [address] | | | | | Mail Code: CH10U | [place], [place] | | | | | [facility] | [address] | | | | | and | [phone] | | | | | Floor [place], [place] | | | | | | [address] | | | | | | [phone] | | | +--------+ + + + [...] + + | 12/20/ | Diagnostic | Dance Instructor | Nils Woody, | | | 2017 | Visit | | [address] | | | | | | [address] | | | | | | [place] | | | | | | [phone] | | | | | | | | +--------+ + + + + as of this encounter Visit Diagnoses Not on filein this encounter"
--- OUTSIDE RECORDS SUMMARY | ~2017-11-22 | XMS | Encounter Summary ---
Demographics + + + | Address | [address] | | | [place] [address] | + + + | Home Phone | | + + + | Preferred Language | Unknown | + + + | Marital Status | | + + + | Muslim Affiliation | LDS | + + + | Race | White | + + + | Ethnic Group | Not or | + + + Author + + + | Author | [facility] | + + + | Organization | [facility] | + + + | Address | Unknown | + + + | Phone | Unavailable | + + + Support + + + + + | Name | Relationship | Address | Phone | + + + + + | MILLY NGUYEN | ECON | [address] | | | | | [place], | | | | | [place] [address] | | + + + + + | Holly Otoole ECON | Unknown | | + + + + + Care Team Providers + +------+ + | Care Manager Intel Name | Role | Phone | + +------+ + | Jeremy Adrian MD | PCP | | + +------+ + Encounter Details +--------+---------+ + + + | Date | Type | Department | Care Team | Description | +--------+---------+ + + + | 07/12/ | Office | Urology at [facility] | Alison Garcia | Renal cell carcinoma | | 2018 | Visit | [address] | [address] | of right kidney | | | | Mail Code: CH10U | [address] | (HCC) (Primary Dx) | | | | [place] for [facility] | [place], [place] | | | | | and | [address] | | | | | Floor [place], [place] | [phone] | | | | | [address] | | | | | | [phone] | | | +--------+---------+ + + + [...] grade 3, clear cell renal cell carcinoma. [id number]. Patient is doing well. No longer requiring [...] He was seen by medical oncology in [place], [place] (Dr. Quiroz) two days ago. He [...] Recheck BMP tomorrow - [facility] in [place], [place] 2. Follow up with medical oncology for treatment of liver and lung lesions. 3. Return as needed. Alison Garcia PA-C Physician Drafter Automotive Design Layout Department of Urology [facility] & [facility] in this encounter Plan of Treatment +--------+ + + + + | Date | Type | Specialty | Care Team | Description | +--------+ + + + + | 12/20/ | Diagnostic | Acoustic Warfare Analyst | Nils Woody, | | | 2018 | Visit | | Keyla [facility] [address] | | | | | | [address] [facility] | | | | | | [place], [place] | | | | | | [address] | | | | | | | [...]
--- OUTSIDE RECORDS SUMMARY | ~2017-11-22 | XMS | Encounter Summary ---
Demographics + + + | Address | [address] | | | [place] [address] | + + + | Home Phone | | + + + | Preferred Language | Unknown | + + + | Marital Status | | + + + | Jew Affiliation | Unknown | + + + | Race | Unknown | + + + | Ethnic Group | Unknown | + + + Author + + + | Author | [facility] | + + + | Organization | [facility] | + + + | Address | Unknown | + + + | Phone | Unavailable | + + + Support + + +---------+ + | Name | Relationship | Address | Phone | + + +---------+ + | Yuki Nguyen | ECON | Unknown | | + + +---------+ + Care Team Providers + +------+ + | Care Strapping Machine Operator Name | Role | Phone [...] [place] | | | | | | [address] | | | +--------+ + + + [...] MD | | | | | | [address] | | | | | | [place] | | | | | | [address] | | | | | | | | +--------+---------+ + + + as of this encounter Visit Diagnoses Not on filein this encounter"
--- OUTSIDE RECORDS SUMMARY | ~2017-11-22 | XMS | Encounter Summary ---
Demographics + + + | Address | [address] | | | [place] [address] | + + + | Home Phone | | + + + | Preferred Language | Unknown | + + + | Marital Status | | + + + | Restorationism Affiliation | LDS | + + + | Race | White | + + + | Ethnic Group | Not or | + + + Author + + + | Author | [facility] | + + + | Organization | [facility] | + + + | Address | Unknown | + + + | Phone | Unavailable | + + + Support + + + + + | Name | Relationship | Address | Phone | + + + + + | MILLY NGUYEN | ECON | [address] | | | | | [place], | | | | | [place] [address] | | + + + + + | Holly Burrell | ECON | Unknown | | + + + + + Care Team Providers + +------+ + | Care Product Marketing Programs Manager Name | Role | Phone | + +------+ + | Jeremy Adrian MD | PCP | | + +------+ + Encounter Details +--------+ + + + + | Date | Type | Department | Care Team | Description | +--------+ + + + + | 08/31/ | Hospital | Radiology/Imaging | Alison Garcia | | | 2018 | Encounter | Lab at [facility] [address] | | | | | [address] | [address] | | | | | Mailcode: CH3G | [place], [place] | | | | | [facility] | [address] | | | | | and [address], [facility] | [phone] | | | | | Floor [place], [place] | | | | | | [address] | | | | | | [phone] | | | +--------+ + + + [...] + | 12/20/ | Diagnostic | Java Lead Developer | Nils Woody, | | | 2018 | Visit | | [address] | | | | | | [address] | | | | | | [place], [place] | | | | | | [address] | | | | | | | [...] Note | + + | Service Account, [employer] Res In Interface - 08/31/2017 5:20 PM [...]
--- OUTSIDE RECORDS SUMMARY | ~2017-11-22 | XMS | Encounter Summary ---
Demographics + + + | Address | [address] | | | [place] [address] | + + + | Home Phone | | + + + | Preferred Language | Unknown | + + + | Marital Status | | + + + | Zoroastrianism Affiliation | Unknown | + + + | Race | Unknown | + + + | Ethnic Group | Unknown | + + + Author + + + | Author | [facility] | + + + | Organization | [facility] | + + + | Address | Unknown | + + + | Phone | Unavailable | + + + Support + + +---------+ + | Name | Relationship | Address | Phone | + + +---------+ + | Yuki Nguyen | ECON | Unknown | | + + +---------+ + Care Team Providers + +------+ + | Care Production Maintenance Technician Name | Role | Phone | [...] + + | 10/13/ | Documentati | [facility] | Gabriella, | Other (IMAGING | | 2018 | on Only | Hematology and | Stephanie Dubon MD | [facility] | | | | Oncology [address] | [address] | ) | | | | [address] | [place] | | | | | [place] | [address] | | | | | [address] | | | | | | [phone] | | | +--------+ + + + [...] [place] | | | | | | [address] | | | | | | | | +--------+---------+ + + + as of this encounter Visit Diagnoses Not on filein this encounter"
--- OUTSIDE RECORDS SUMMARY | ~2017-11-22 | XMS | Encounter Summary ---
Demographics + + + | Address | [address] | | | [place] [address] | + + + | Home Phone | | + + + | Preferred Language | Unknown | + + + | Marital Status | | + + + | Yarsanism Affiliation | Unknown | + + + | Race | Unknown | + + + | Ethnic Group | Unknown | + + + Author + + + | Author | [facility] | + + + | Organization | [facility] | + + + | Address | Unknown | + + + | Phone | Unavailable | + + + Support + + +---------+ + | Name | Relationship | Address | Phone | + + +---------+ + | Yuki Nguyen | ECON | Unknown | | + + +---------+ + Care Team Providers + +------+ + | Care Monitoring Analyst Name | Role | Phone | + [...] + + | 10/31/ | Telephone | [facility] | Nanda Vaughan | Oncology Nurse | | 2018 | | Hematology and | C, RN | Navigation | | | | Oncology [address] | | | | | | [address] | | | | | | [place] | | | | | | [address] | | | | | | [phone] | | | +--------+ + + + [...] [place] | | | | | | [address] | | | | | | | | +--------+---------+ + + + as of this encounter Visit Diagnoses Not on filein this encounter"
--- OUTSIDE RECORDS SUMMARY | ~2017-11-22 | XMS | Encounter Summary ---
Demographics + + + | Address | [address] | | | [place] [address] | + + + | Home Phone | | + + + | Preferred Language | Unknown | + + + | Marital Status | | + + + | Worship Affiliation | Unknown | + + + | Race | Unknown | + + + | Ethnic Group | Unknown | + + + Author + + + | Author | [facility] | + + + | Organization | [facility] | + + + | Address | Unknown | + + + | Phone | Unavailable | + + + Support + + +---------+ + | Name | Relationship | Address | Phone | + + +---------+ + | Yuki Nguyen | ECON | Unknown | | + + +---------+ + Care Team Providers + +------+ + | Care Tank Washer Name | Role | Phone | + [...] [place] | | | | | | [address] | | | +--------+ + + + [...] [place] | | | | | | [address] | | | | | | | | +--------+---------+ + + + as of this encounter Visit Diagnoses Not on filein this encounter"
--- OUTSIDE RECORDS SUMMARY | ~2017-11-22 | XMS | Encounter Summary ---
Demographics + + + | Address | [address] | | | [place] [address] | + + + | Home Phone | | + + + | Preferred Language | Unknown | + + + | Marital Status | | + + + | Mandaeism Affiliation | Unknown | + + + | Race | Unknown | + + + | Ethnic Group | Unknown | + + + Author + + + | Author | [facility] | + + + | Organization | [facility] | + + + | Address | Unknown | + + + | Phone | Unavailable | + + + Support + + +---------+ + | Name | Relationship | Address | Phone | + + +---------+ + | Yuki Nguyen | ECON | Unknown | | + + +---------+ + Care Team Providers + +------+ + | Care Aquacultural Worker Supervisor Name | Role | Phone | [...] | | Dx) | | | | [address] | | | +--------+ + + + [...] [place] | | | | | | [address] | | | | | | | | +--------+---------+ + + + as of this encounter Visit Diagnoses + + | Diagnosis | + + | Cancer of kidney, right (HCC) - Primary | + +"
--- OUTSIDE RECORDS SUMMARY | ~2017-11-22 | XMS | Encounter Summary ---
Demographics + + + | Address | [address] | | | [place] [address] | + + + | Home Phone [...] + + + | Author | [facility] | + + + | Organization | [facility] | + + + | Address | Unknown | + + + | Phone | Unavailable | + + + Support + + + + + | Name | Relationship | Address | Phone | + + + + + | MILLY NGUYEN | ECON | [address] | | | | | [place], | | | | | [place] [address] | | + + + + + | Holly Burrell | ECON | Unknown | | + + + + + Care Team Providers + +------+ + | Care Ice Handler Name | Role | Phone | + [...] | 11/18/ | Telephone | [facility] at [facility] | Cristy Rubin MD | Insurance | | 2018 | | [address] | [address] | Authorization | | | | Mail Code: CH10U | [place], [place] | (Disability claim) | | | | [facility] | [address] | | | | | and | [phone] | | | | | Floor [place], [place] | | | | | | [address] | | | | | | [phone] | | | +--------+ + + + [...] + + | 12/20/ | Diagnostic | Director Of Instruction | Nils Woody, | | | 2017 | Visit | | [address] | | | | | | [address] | | | | | | [place], [place] | | | | | | [phone] | | | | | | | | +--------+ + + + + as of this encounter Visit Diagnoses Not on filein this encounter"
--- OUTSIDE RECORDS SUMMARY | ~2017-11-22 | XMS | Encounter Summary ---
Demographics + + + | Address | [address] | | | [place] [address] | + + + | Home Phone | | + + + | Preferred Language | Unknown | + + + | Marital Status | | + + + | Druze Affiliation | LDS | + + + [...] + | MILLY NGUYEN | ECON | [address] | | | | | [place], | | | | | [place] [address] | | + + + + + | Holly Burrell | ECON | Unknown | | + + + + + Care Team Providers + +------+ + | Care Supervisor Assembly Room Name | Role | Phone | + [...] OPEN RADICAL | | 2018 | | [facility] | [address] | NEPHRECTOMY CAVAL | | | | Admitting Desk | [place], [place] | THROMBECTOMY, | | | | Located on the | [address] | RETROPERITONEAL | | | | floor [address] | [phone] | LYMPH NODE | | | | [facility] | | DISSECTION, | | | | [place], [place] | | | | | | [address] | | | +--------+---------+ + + + [...] may be different fr om the original. [facility] Inpatient Discharge Summary Mario Guardado [...] can cause constipation, so you may take fnts-ecu-vpbdeon stool softeners (Senok ot-S, Miralax, Colace) following [...] ----- ----- ----- When to Call: JO-ANN mulling machine operator after hours and ask for the Surgery Physician A ssistant, Nurse or Surgery Resident monogram and letter paster if you have any of the followin. [...] 10/06/2017 9:30 AM Alison Garcia Urology at [facility] [phone] Urology 12/20/2017 8:30 AM Keyla Adam; AUDIO CASTELLON 4 Otolaryngology Audiology Services at [facility] [phone] Otolaryngo Our schedulers will contact you to make an appointment. Your appointment will be on the 10t h floor of the [facility]. If you do not hear from [...] 10/06/2017 9:30 AM Alison Garcia Urology at [facility] [phone] Urology 12/20/2017 8:30 AM Keyla Adam; AUDIO CASTELLON 4 Otolaryngology Audiology Services at [facility] [phone] Otolaryngolo ----- Condition On Discharge: Good Vital [...] questions. Mario Guardado MD Urology PGY-1 Pg [phone] [facility] 4A [id number] [place] [address] Associated attestation - Cristy Rubin MD - 09/17/2017 10:05 AM PDTI agree with discharge summary as written by Dr. Guardado. Pt will follow up in 3 weeks. Alex Rubin MD Dimension Stone Quarry Supervisor Department of Urology [facility] in this encounter Discharge Instructions [...] 2.2 H&H 7.9/26.1 (from 7.3/24.4 yesterday) Imaging: [facility] ABDOMINAL DUPLEX LTD ARTERY VEIN 09/16/2017 [...] Please page the Vascular Surgery Team pager #[phone] with questions. Eder Gann M.D., M.P.H. Neurological Surgery Resident PGY-1 Pager: [phone] This assessment and plan was formulated both independently and in conjunction with the [facility] ular Surgery Team as well as [...] primary team Doroteo Lawton MD Vascular Surgery Cash Room Clerk Please page the Vascular Surgery Team pager# [phone] for questions Current Facility-Administered Medications: acetaminophen (TYLENOL) [...] the resident s note. Christian Mckeon M.D. [facility] Vascular Surgery [address] [place] [address], [address] [address] Email: [email or web address] Mario Gaurdado MD - 09/16/2017 8:52 AM PDTFormatting of this note may be different fr om the original. Urology Progress Note Hospital Day: 3 Author: KOBE BAEZA MD Attending Physician: Cristy Rubin MD Patient: ELICEO NGUYEN [id number] 24H events/Subjective: ELVIS overnight. Pain is well [...] primary team Doroteo Lawton MD Vascular Surgery Cash Room Clerk Please page the Vascular Surgery Team pager# [phone] for questions Current Facility-Administered Medications: acetaminophen (TYLENOL) [...] the resident s note. Christian Mckeon M.D. [facility] Vascular Surgery [address] [place] [address], [address] [address] Email: [email or web address] Kobe Baeza MD - 09/15/2017 8:50 AM PDTFormatting of this note may be different from lashay hilario. Urology Progress Note Hospital Day: 2 Author: KOBE BAEZA MD Attending Physician: Cristy Rubin MD Patient: ELICEO NGUYEN [id number] 24H events/Subjective: ELVIS overnight. Pain is well [...] 0659 09/15/17 07 - 09/16/17 0659 Shift [id number] 24 Hour Total [id number] 0661-4430 5190-8983 24 Hour Total I N T A [...] mg, intravenous, Q2H PRN HYDROmorphone 0.5 mg/mL SUPERVISING APPRAISER (ADULT STANDARD DOSE) in 0.9 % NaCl, , intravenous, CONTINUOUS HYDROmorphone 0.5 mg/mL rescue bolus from SUPERVISING APPRAISER (ADULT STANDARD DOSE) 0.2 mg, 0.2 mg, [...] Rubin MD. Kobe Baeza MD Urology Pager [phone] Nata Roland MD - 09/14/2017 3:04 PM PDTFormatting of this note may be different fro m the original. Cardiovascular Intensive Care Unit Team Progress Note CVICU D2 Assigned #[id number] Admission dx: N28.89 (ICD-10-CM) - 593.9 (ICD-9-CM) - RENAL MASS Days in ICU 1 Days in Hospital Abbreviated HPI / Daily Assessment Mr. 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 24 Hour events -arterial line d/c -softer pressures overnight, but did not receive IVF bolus -pain well controlled with SUPERVISING APPRAISER -CLD Code Status Code Status Full Code Active Diagnosis with Assessment & Plan Priority Class POA Head/Neck Cochlear implant in place Yes Current Assessment & Plan Working well. Able to hear well except over the phone. Cardiovascular Essential hypertension Yes Current Assessment & Plan Well controlled with valsartan FUR POLISHER. -Hold in post-operative period Digestive Gastroesophageal reflux disease Yes Current Assessment & Plan On pantoprazole as outpatient. -Continue omeprazole (formulary) Dysphagia Unknown Current Assessment & Plan Has had issues with swallowing and dysphagia for quite some time. Crushes all meds and ta kes them with applesauce. FREIGHT ELEVATOR OPERATOR consult and recommend barium swallow. -CLD -Barium swallow today -FREIGHT ELEVATOR OPERATOR following Hematologic Acute blood loss anemia Unknown [...] Vena cava graft done by vascular. Has SUPERVISING APPRAISER. 6.3 L crystalloid given during the case-no blood products given (1200 mL EBL). Did well overnight HD and with pain control. -Continue motta per urology -HM SUPERVISING APPRAISER -CLD until FREIGHT ELEVATOR OPERATOR eval/uro approval -Closely monitor hemodynamics [place] status Code Status Updated [...] Cristy Rubin MD Admitting Provider Urological Surgery [id number] The Advanced Care Note for this patient can be found under the notes tab in chart review. Quality section Motta necessity reviewed: Acute urinary retention or obstruction FAST HUG Feeding: clears Analgesia: SUPERVISING APPRAISER Sedation: n/a Thromboprophylaxis: Heparin SQ Head of Bed: Speech and swallow evaluation Ulcer Prophylaxis: Omeprazole Glycemic Control: insulin sliding Created by Nata Roland MD Author:Nata Roland MD [address] [address] [place] [address]Dwmzk, Alan J, MD - 09/14/2017 10:11 AM PDTFormatting of this note m ay be different from the original. Cardiovascular Intensive Care Unit Attending Progress Note CVICU D2 Assigned #[id number] Hospital admission dx: N28.89 (ICD-10-CM) - 593.9 [...] if Hct drops - pain control w/ SUPERVISING APPRAISER - bronchiole hygiene - mobilize - speech/swallow eval, if advance diet stop IVF Dispo: stable for [facility] Hospital Problems Priority POA [...] Cristy Rubin MD Admitting Provider Urological Surgery [id number] Code Status Code Status Full Code The [...] exceptions/additions as noted. Date of Service: 09/14/2017 [facility] DEPARTMENT: ANE ICU CARDIAC Place of Service:- Inpatient CSN: [id number] Suggested Modifier: GC - Resident Involved Suggested CPT: TO OVERHEAD CRANE OPERATOR Author:Moustapha Lema MD [address] [place] [address]CvtouhrMario panchal MD - 09/14/2017 8:33 AM PDTUrology Progress Not e Hospital Day: 1 Author: Mario Guardado MD Attending Physician: Cristy Rubin MD Patient: ELICEO NGUYEN [id number] 24H events/Subjective: No acute events overnight Pt [...] suspected dysphagia vs. Pharyngeal diverticulum - Continue SUPERVISING APPRAISER pain control - Heparin prophylaxis - Maintain omtta catheter - Oxybutynin for bladder discomfort due to motta #Caval graft - Aspirin 81mg daily The attending of record for this patient is Cristy Rubin MD. Mario Guardado MD Department of Urology [facility] Madiha Ramirez MD - 09/14/2017 6:08 AM [...] Clinical Update Note Team: D2 Team Pager: [phone] Attending: Dr. Rios Pt Name: Eliceo Nguyen ID: Abbreviated HPI Abbreviated HPI / Daily Assessment Mr. 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 Update: Pain well controlled with HM SUPERVISING APPRAISER. A-line no longer correlating with cuff BP [...] post nephrectomy Unknown Plan: - continue HM SUPERVISING APPRAISER - d/c a-line - SSI - cbc [...] ICU CARDIAC Place of Service:- Inpatient CSN: [id number] Suggested Modifier: None Suggested CPT: TO OVERHEAD CRANE OPERATOR MCKAYLA VIEYRA in this encounter Plan of Treatment +--------+ + + + + | Date | Type | Specialty | Care Team | Description | +--------+ + + + + | 12/20/ | Diagnostic | Pharmacy Clerk | Nils Woody, | | | 2017 | Visit | | GRETCHEN Ramires [address] | | | | | | [address] | | | | | | [place], [place] | | | | | | [address] | | | | | | | [...] [facility] | | | | | TORTSEN TSAI OF | | | | | CARE TESTS | + +---------+ + + + + + + + | Performing | Address | City/State/Zipcode | Phone Number | | Organization | | | | + + + + + | [facility] | [address] | [place], [place] | | | T[place]EN TSA[place] OF [place] | [address] | [address] | | | TESTS | | | [...] (H) | 35.1 - 46.3 fL | [facility] | | | | | SERVICES, CORE | + + + + + | PLATELET COUNT | 373 | 150 - 400 K/cu mm | [facility] | | | | | SERVICES, CORE | + + + + + | MPV | 10.4 | 9.7 - 12.3 fL | [facility] | | | | | SERVICES, CORE | + + + + + | NRBC% | 0.0 | 0.0 - 0.3 % | [facility] | | | | | SERVICES, CORE | + + + + + | NRBC# | 0.00 | 0.00 - 0.02 K/cu mm | [facility] | | | | | [...] | + + + + + | [facility] | [address] | [place] [address] | | | SERVICES, CORE | [address] | | | + + + + + PHOSPHORUS, PLASMA (09/17/2017 4:50 AM) + +---------+ + + | Component | Value | Ref Range | Performed At | + +---------+ + + | PHOSPHORUS, PLASMA | 2.2 (L) | 2.4 - 4.7 mg/dL | [facility] | | (LAB) | | | SERVICES, CORE | + +---------+ + + + + | Specimen | + + | Blood - Blood | + + + + + + + | Performing | Address | City/State/Zipcode | Phone Number | | Organization | | | | + + + + + | [facility] | [address] | [place] [address] | | | SERVICES, [place] | [address] | | | + + + + + MAGNESIUM, PLASMA (09/17/2017 4:50 AM) + +-------+ + + | Component | Value | Ref Range | Performed At | + +-------+ + + | MAGNESIUM,PLASMA | 2.0 | 1.6 - 2.6 mg/dL | [facility] | | | | | [...] + + | [facility] | [address] | [place] [address] | | | SERVICES, CORE | [address] [...] >60 mL/min | [facility] | | [address] | | | TAMIKA, CORE | + +---------+ + + | EGFR NON | >60 | >60 mL/min | [facility] | | -KYRGYZ | | | TAMIKA, CORE | + [...] LABORATORY | | (LAB) | | | [facility], CORE | + +---------+ + + | CALCIUM, PLASMA | 8.2 (L) | 8.6 - 10.2 mg/dL | [facility] | | (LAB) | | | SERVICES, CORE | + +---------+ + + | ANION GAP | 6 | 4 - 11 mmol/L | [facility] | | | | | SERVICES, CORE | + +---------+ + + | POTASSIUM CMNT | No Hemo | | [facility] | | | | | SERVICES, CORE | + +---------+ + + + + | Specimen | + + | Blood - Blood | + + + + + | Narrative | Performed At | + + + | GFR is estimated using the MDRD equation recommended by the | [facility] | | National Kidney Disease Education Program. [...] | + + + + + | [facility] | [address] | [place] [address] | | | XENIA LUNDBERG | [address] [...] + + | [facility] | [address] | [place], [place] | | | TORSTEN TSAI OF CARE | [facility] | [address] | | | TESTS | | | [...] [facility] | [address] | [place], [place] | | | QUIN POINT OF CARE | [address] | [address] | | | TESTS | | | [...] + + + | [facility] | [address] | [place], [place] | | | TORSTEN TSAI OF [facility] | [address] | [address] | | | TESTS | | | [...] Note | + + | Service Account, RadiShoutly Res In Interface - 09/16/2017 12:28 PM [...] | | + +---------+ + + | [facility] RADIOLOGY | | | | | [facility] | | | | + +---------+ [...] [facility] | [address] | [place], [place] | | | TORSTEN TSAI OF [facility] | [address] | [address] | | | TESTS | | | | + + + + + CBC (HEMOGRAM) ONLY (09/16/2017 4:16 AM) + + + + + | Component | Value | Ref Range | Performed At | + + + + + | WHITE CELL COUNT | 9.09 | 3.50 - 10.80 K/cu mm | [facility] | | | | | SERVICES, [...] | + + + + + | [facility] | [address] | [place] [address] | | | TAMIKA, XENIA | [address] | | | + + + + + PHOSPHORUS, PLASMA (09/16/2017 4:16 AM) + +---------+ + + | Component | Value | Ref Range | Performed At | + +---------+ + + | PHOSPHORUS, PLASMA | 2.1 (L) | 2.4 - 4.7 mg/dL | [facility] | | (LAB) | | | XENIA LUNDBERG | + +---------+ + + + + | Specimen | + + | Blood - Blood | + + + + + + + | Performing | Address | City/State/Zipcode | Phone Number | | Organization | | | | + + + + + | [facility] | [address] | [place] [address] | | | SERVICES, X[place] | [address] [...] [facility] | [address] | [place] [address] | | | [facility] | [address] | | | + + + + + BASIC METABOLIC SET (NA, K, CL, TCO2, BUN, CR, GLU, CA) (09/16/2017 4:16 AM) + +---------+ + + | Component | Value | Ref Range | Performed At | + +---------+ + + | GLUCOSE, PLASMA | 160 (H) | 70 - 99 mg/dL | [facility] | | (LAB) | | [...] >60 mL/min | [facility] | | [address] | | | SERVICES, CORE | + +---------+ + + | EGFR NON | >60 | >60 mL/min | [facility] | | -KYRGYZ | | | SERVICES, CORE | + [...] | + + + + + | [facility] | [address] | [place] [address] | | | SERVICES, CORE | PARK [...] [facility] | [address] | [place], [place] | | | QUIN POINT OF CARE | [facility] | [address] | | | TESTS | | | [...] [facility] | [address] | [place], [place] | | | QUIN POINT OF CARE | [address] | [address] | | | TESTS | | | [...] [facility] | [address] | [place], [place] | | | [place], POINT OF CARE | [address] | [address] | | | TESTS | | | [...] [facility] | [address] | [place], [place] | | | [place] POINT OF [facility] | [address] | [address] | | | TESTS | | | | + + + + + CBC (HEMOGRAM) ONLY (09/15/2017 5:25 AM) + + + + + | Component | Value | Ref Range | Performed At | + + + + + | WHITE CELL COUNT | 11.47 (H) | 3.50 - 10.80 K/cu mm | [facility] | | | | | [...] (L) | 41.0 - 53.0 % | [facility] | | | | | SERVICES, CORE | + + + + + | MCV | 79.1 (L) | 80.0 - 100.0 fL | [facility] | | | | | SERVICES, [...] [facility] | [address] | [place] [address] | | | SERVICES, [place] | [address] | | | + + + + + PHOSPHORUS, PLASMA (09/15/2017 5:25 AM) + +---------+ + + | Component | Value | Ref Range | Performed At | + +---------+ + + | PHOSPHORUS, PLASMA | 2.2 (L) | 2.4 - 4.7 mg/dL | [facility] | | (LAB) | | | X[place]IA [address]G | + +---------+ + + + + | Specimen | + + | Blood - Blood | + + + + + + + | Performing | Address | City/State/Zipcode | Phone Number | | Organization | | | | + + + + + | [facility] | [address] | [place] [address] | | | SERVICES, CORE | [address] [...] [facility] | [address] | [place] [address] | | | SERVICES, CORE | PARK [...] >60 mL/min | [facility] | | [address] | | | SERVICES, CORE | + +---------+ + + | EGFR NON | >60 | >60 mL/min | [facility] | | -KYRGYZ | | | SERVICES, CORE | + [...] | + + + + + | [facility] | [address] | [place] [address] | | | SERVICES, CORE | [address] [...] BUTCHER | [address] | [place], [place] | | | QUIN POINT OF CARE | [facility] | [address] | | | TESTS | | | [...] [facility] | [address] | [place], [place] | | | QUIN POINT OF CARE | [address] | [address] | | | TESTS | | | | + + + + + MODIFIED BARIUM SWALLOWING (09/14/2017 3:00 PM) + + + | Narrative | Performed At | + + + | EXAM: Modified Barium Swallow HISTORY: FREIGHT ELEVATOR OPERATOR | [facility] | | recommended. Patient with [...] EXAM: Modified | | Barium Swallow HISTORY: FREIGHT ELEVATOR OPERATOR recommended. Patient with problems swallowing. Recent | [...] Note | + + | Service Account, Just Sing It Res In Interface - 09/15/2017 10:05 AM [...] [facility] | [address] | [place], [place] | | | QUIN POINT OF CARE | [address] | [address] | | | TESTS | | | [...] 10.3 | 9.7 - 12.3 fL | [facility] | | | | | SERVICES, CORE | + + + + + | NRBC% | 0.0 | 0.0 - 0.3 % | [facility] | | | | | SERVICES, CORE | + + + + + | NRBC# | 0.00 | 0.00 - 0.02 K/cu mm | [facility] | | | | | SERVICES, [...] | + + + + + | [facility] | [address] | [place] [address] | | | XENIA LUNDBERG | [address] | | | + + + + + PHOSPHORUS, PLASMA (09/14/2017 12:02 AM) + +-------+ + + | Component | Value | Ref Range | Performed At | + +-------+ + + | PHOSPHORUS, PLASMA | 3.8 | 2.4 - 4.7 mg/dL | [facility] | | (LAB) | | | SERVICES, CORE | + +-------+ + + + + | Specimen | + + | Blood - Blood | + + + + + + + | Performing | Address | City/State/Zipcode | Phone Number | | Organization | | | | + + + + + | [facility] | [address] | [place] [address] | | | SERVICES, CORE | [address] | | | + + + + + MAGNESIUM, PLASMA (09/14/2017 12:02 AM) + +-------+ + + | Component | Value | Ref Range | Performed At | + +-------+ + + | MAGNESIUM,PLASMA | 1.9 | 1.6 - 2.6 mg/dL | [facility] | | | | | XENIA LUNDBREG | + +-------+ + + + + [...] | + + + + + | [facility] | [address] | [place] [address] | | | XENIA LUNDBERG | [address] [...] >60 mL/min | [facility] | | [address] | | | TAMIKA, CORE | + +---------+ + + | EGFR NON | >60 | >60 mL/min | [facility] | | -KYRGYZ | | | SERVICES, CORE | + [...] | Interpretive Information: <60 mL/min/1.73 sq | [facility] | | m Chronic [...] | + + + + + | [facility] | [address] | [place] [address] | | | TAMIKA, XENIA | [address] [...] - [facility] | [address] | [place], [place] | | | QUIN POINT OF CARE | [address] | [address] | | | TESTS | | | [...] [facility] | [address] | [place], [place] | | | TORSTEN TSAI OF CARE | [address] | [address] | | | TESTS | | | [...] 0.0 | 0.0 - 0.3 % | [facility] | | | | | SERVICES, CORE | + + + + + | NRBC# | 0.00 | 0.00 - 0.02 K/cu mm | [facility] | | | | | SERVICES, CORE | + + + + + + + | Specimen | + + | Blood - Blood | + + + + + | Narrative | Performed At | + + + | New reference ranges for MCV, MCHC, PLT, IG% and IG# effective | [facility] | | 08/04/2017 | LABORATORY | | | SERVICES, CORE | + + + + + + + + | Performing | Address | City/State/Zipcode | Phone Number | | Organization | | | | + + + + + | [facility] | [address] | [place] [address] | | | SERVICES, CORE | [address] [...] >60 mL/min | [facility] | | [address] | | | SERVICES, CORE | + +---------+ + + | EGFR NON | >60 | >60 mL/min | [facility] | | -KYRGYZ | | | SERVICES, CORE | + [...] LABORATORY | | (LAB) | | | [facility] | + +---------+ + + | POTASSIUM CMNT | No Hemo | | [facility] | | | | | SERVICES, [facility] | + +---------+ + + | ANION GAP | 7 | 4 - 11 mmol/L | [facility] | | | | | SERVICES, CORE | + +---------+ + + | ANION GAP(ALB | 11 | 4 - 11 mmol/L | [facility] | | CORRECTED) | | | [facility] | + +---------+ + + + + | Specimen | + + | Blood - Blood | + + + + + | Narrative | Performed At | + + + | GFR is estimated using the MDRD equation recommended by the | [facility] | | National Kidney Disease Education Program. Estimated GFR | LABORATORY | | Interpretive Information: <60 mL/min/1.73 sq | [facility] | | m Chronic [...] | + + + + + | [facility] | [address] | [place] [address] | | | XENIA LUNDBERG | BERTHA [...] + | [facility] | [address] | [place], [place] | | | QUIN [facility] | [address] | [address] | | | TESTS | | | [...] bleeding was controlled with the argon beam can tender. Dr. Young | | | was consulted [...] case. Alex Rubin MD | | | Dimension Stone Quarry Supervisor Department of Urology [facility] | | | University | | [...] - [facility] | [address] | [place], [place] | | | QUIN POINT OF CARE | [address] | [address] | | | TESTS | | | | + + + + + ABG-FULL ABL, POC (09/13/2017 1:12 PM) + + + + + | Component | Value | Ref Range | Performed At | + + + + + | PH ARTERIAL, POC | 7.42 | 7.37 - 7.44 | [facility] | | | | | TORSTEN [...] [facility] | [address] | [place], [place] | | | TORSTEN TSAI OF CARE | [facility] | [address] | | | TESTS | | | [...] | + + + + + | [facility] | [address] | [place], [place] | | | QUIN [place] OF [facility] | [address] | [address] | | | TESTS | | | | + + + + + SURGICAL PATHOLOGY (09/13/2017 12:02 PM) + + + + + | Component | Value | Ref Range | Performed At | + + + + + | Clinical History | N28.89 (ICD-10-CM) - | | [facility] DEPARTMENT | | | 593.9 (ICD-9-CM) - RENAL | | OF PATHOLOGY | | | MASS | | | + + + + + | Final Pathologic | A. Right kidney and | | [facility] DEPARTMENT | | Diagnosis | adrenal gland, [...] | Received are 6 specimens | | [facility] DEPARTMENT | | | fresh in containers | | OF PATHOLOGY | | | labeled with the | | | | | patient's name (initials | | | | | DG) and medical record | | | | | number [id number]. | | | | | Kidney, Right [...] | =blackSubmitted: | | | | | [employer] Packer A1: Renal | | | | | [...] 9 | | | | | o'clock. [employer] | | | | | sections are [...] | ANCILLARY | Analyte specific | | [facility] DEPARTMENT | | INFORMATION | reagents are [...] | | | | | determined by [facility] | | | | | laboratories. It [...] | + + + + + | [facility] | [address] | [place] [address] | | | PATHOLOGY | [address] | | | + + + + + PRODUCT - RED CELLS LEUKOREDUCED (09/13/2017 11:39 AM) + + + + + | Component | Value | Ref Range | Performed At | + + + + + | PRODUCT DESCRIPTION | -1 RED BLOOD CELL | | [facility] | | | ADENINE-SALINE ADDED | | SERVICES, | | | LEUKOCYTE | | TRANSFUSION | | | | | MEDICINE | + + + + + | PRODUCT UNIT # | [id number] | | [facility] | | | [...] + + + | EXPIRATION DATE | [id number] | | [facility] | | | [...] + + | BLOOD PRODUCT CODE | [id number] | | [facility] | | | | | SERVICES, | | | | | TRANSFUSION | | | | | MEDICINE | + + + + + + + + + + | Performing | Address | City/State/Zipcode | Phone Number | | Organization | | | | + + + + + | [facility] | [address] | [place] [address] | | | SERVICES, | [address] [...] + + | PRODUCT UNIT # | [id number] | | [facility] | | | [...] + + + | EXPIRATION DATE | [id number] | | [facility] | | | [...] + + | BLOOD PRODUCT CODE | [id number] | | [facility] | | | | | SERVICES, | | | | | TRANSFUSION | | | | | MEDICINE | + + + + + + + + + + | Performing | Address | City/State/Zipcode | Phone Number | | Organization | | | | + + + + + | [facility] | [address] | [place] [address] | | | SERVICES, | [address] [...] BUTCHER | [address] | [place], [place] | | | QUIN POINT OF CARE | [address] | [address] | | | TESTS | | | [...] BUTCHER | [address] | [place], [place] | | | QUIN POINT OF CARE | [address] | [address] | | | TESTS | | | [...] [facility] | [address] | [place] [address] | | | TAMIKA | BERTHA EWING [...] BUTCHER | [address] | [place], [place] | | | QU[facility] | [address] | [address] | | | TESTS | | | [...] | | | | | dose on [facility] 09/15/17 at 0715, | | | [...] | +---+---+ + +-------+ +---------+---+---------+ | thrombin [id number] unit topical Kit | Given | | 20,000 | | Abdomen | | [place] INTRAPROCEDURE PRN, | | 8 13:03 | Units | | | | Starting 09/13/17 at 1303, | | PDT | | | | | Until 09/13/17 at 1441 | | | | | | + +-------+ +---------+---+---------+ +---+---+ | | | +---+---+ in this encounter
--- OUTSIDE RECORDS SUMMARY | ~2017-11-22 | XMS | Encounter Summary ---
Demographics + + + | Address | [address] | | | [place] [address] | + + + | Home Phone | | + + + | Preferred Language | Unknown | + + + | Marital Status | | + + + | Hoahaoism Affiliation | Unknown | + + + | Race | Unknown | + + + | Ethnic Group | Unknown | + + + Author + + + | Author | [facility] | + + + | Organization | [facility] | + + + | Address | Unknown | + + + | Phone | Unavailable | + + + Support + + +---------+ + | Name | Relationship | Address | Phone | + + +---------+ + | Yuki Nguyen | ECON | Unknown | | + + +---------+ + Care Team Providers + +------+ + | Care Four Slide Machine Setter Name | Role | Phone | [...] + + | 11/14/ | Documentati | [facility] | Gabriella, | Sangeetha (DR. REY | | 2018 | on Only | Hematology and | Stephanie Dubon MD | [place], | | | | Oncology [address] | [facility] ) | | | | [address] | [place] | | | | | [place] | [address] | | | | | [address] | | | | | | [phone] | | | +--------+ + + + [...] [place] | | | | | | [address] | | | | | | | | +--------+---------+ + + + as of this encounter Visit Diagnoses Not on filein this encounter"
--- OUTSIDE RECORDS SUMMARY | ~2017-11-22 | XMS | Encounter Summary ---
Demographics + + + | Address | [address] | | | [place] [address] | + + + | Home Phone [...] + | MILLY NGUYEN | ECON | [address] | | | | | [place], | | | | | [place] [address] | | + + + + + | Holly Burrell | ECON | Unknown | | + + + + + Care Team Providers + +------+ + | Care Physiologist Name | Role | Phone | + [...] | | | | CT ABDOMEN | [place], [place] | [facility] | | | | | [place] | [address] | for [facility] | | | | | [place] | Phone: | and Healing, | | | | | CT SCAN OF | [phone] | 3rd Floor | | | | | ABDOMEN | Fax: | [place], [place] | | | | | COMBO | [phone] | [address] | | | | | | | Phone: | | | | | | | [phone] | | | | | | | Fax: | | | | | | | [phone] | +--------+--------+ + + + + Reason for Visit + + + | Reason | Comments | + + + | Care Management | | + + + Encounter Details +--------+ + + + + | Date | Type | Department | Care Team | Description | +--------+ + + + + | 08/25/ | Telephone | [facility] | Cristy Rubin MD | Care Management | | 2017 | | [address] | [address] | | | | | Mail Code: [id number] | [place], [place] | | | | | [facility] | [address] | | | | | and | [phone] | | | | | Floor [place], [place] | | | | | | [address] | | | | | | [phone] | | | +--------+ + + + [...] + + | 12/20/ | Diagnostic | Spa Concierge | Nils Woody, | | | 2017 | Visit | | [facility] [address] | | | | | [address] [facility] | | | | | | [place], [place] | | | | | | [address] | | | | | | | [...]
--- OUTSIDE RECORDS SUMMARY | ~2017-11-22 | XMS | Encounter Summary ---
Demographics + + + | Address | [address] | | | [place] [address] | + + + | Home Phone | | + + + | Preferred Language | Unknown | + + + | Marital Status | | + + + | Denominational Affiliation | Unknown | + + + | Race | Unknown | + + + | Ethnic Group | Unknown | + + + Author + + + | Author | [facility] | + + + | Organization | [facility] | + + + | Address | Unknown | + + + | Phone | Unavailable | + + + Support + + +---------+ + | Name | Relationship | Address | Phone | + + +---------+ + | Yuki Nguyen | ECON | Unknown | | + + +---------+ + Care Team Providers + +------+ + | Care Product Demonstrator Name | Role | Phone | + +------+ + PCP | Unavailable | + +------+ + Encounter Details +--------+ + + + + | Date | Type | Department | Care Team | Description | +--------+ + + + + | 10/13/ | Telephone | [facility] | [facility] | [facility] | | Hematology and | EMILI Harris | | | | | Oncology [address] | | | | | | [address] | | | | | | [place] | | | | | | [address] | | | | | | [phone] | | | +--------+ + + + [...] [place] | | | | | | [address] | | | | | | | | +--------+---------+ + + + as of this encounter Visit Diagnoses Not on filein this encounter"
--- OUTSIDE RECORDS SUMMARY | ~2017-11-22 | XMS | Encounter Summary ---
Demographics + + + | Address | [address] | | | [place] [address] | + + + | Home Phone | | + + + | Preferred Language | Unknown | + + + | Marital Status | | + + + | Spiritism Affiliation | Unknown | + + + | Race | Unknown | + + + | Ethnic Group | Unknown | + + + Author + + + | Author | [facility] | + + + | Organization | [facility] | + + + | Address | Unknown | + + + | Phone | Unavailable | + + + Support + + +---------+ + | Name | Relationship | Address | Phone | + + +---------+ + | Yuki Nguyen | ECON | Unknown | | + + +---------+ + Care Team Providers + +------+ + | Care Legal Librarian Name | Role | Phone | + [...] + + | 10/31/ | Documentati | [facility] | Gabriella, | Other (CT HEAD, DR. | | 2018 | on Only | Hematology and | Stephanie Dubon MD | [facility] | | | | Oncology [address] | [place] ) | | | | [address] | [place], [place] | | | | | [place], [place] | [address] | | | | | [address] | | | | | | [phone] | | | +--------+ + + + [...] [place] | | | | | | [address] | | | | | | | | +--------+---------+ + + + as of this encounter Visit Diagnoses Not on filein this encounter"
[~2017-11-22 10:53] MED LIST changes: +FLOMAX0.4 MG PO; +NORCO 5-325 TA1 EACH PO
--- NOTE | 2017-11-22 15:01 | NUR ---
PT ARRIVED TO UNIT VIA STRETCHER FROM ER. PT ABLE TO TRANSFER TO BED W/O DIFFICULTY, DENIES LIGHTHEADNESS OR DIZZINESS. PT A&O X3 AND RESPONDING APPROPRIATELY. VITAL SIGNS OBTAINED BP 130/69, MAP 84, PULSE 79, 98% ON RA, AND TEMP 99.2 ORALLY. DENIES PAIN. DENIES NAUSEA. RESPIRATIONS EVEN AND UNLABORED, NO COUGH NOTED. BOLUS OF NS CONTINUES TO RUN TO 20G RIGHT THUMB, WNL. ORIENTED PT TO ROOM. FULL ASSESSMENT OT BE COMPLETED.
--- NOTE | 2017-11-22 15:26 | EKG ---
[facility] [address] [facility] [place], [place] [address] Signed Normal sinus rhythm Normal ECG No previous ECGs available Confirmed by MARINA MITCHELL MD ([id number]) on 11/22/2017 3:26:12 PM Electronically Signed By: MARINA MITCHELL MD 11/22/17 1526 PATIENT NAME: ELICEO POST WESTON Electrocardiogram DATE OF : 47 PHYSICIAN: MARINA MITCHELL MD REPORT #: [id number] REPORT IS CONFIDENTIAL AND NOT TO BE RELEASED WITHOUT AUTHORIZATION
--- NOTE | 2017-11-22 15:56 | NUR ---
PT SBA TO RESTROOM, STEADY ON FEET, DENIES LIGHTHEADNESS OR DIZZINESS, TOLERATED WELL. ADVISED TO USE PULL CORD WHEN COMPLETED, VERBALIZED UNDERSTANDING.
--- NOTE | 2017-11-22 16:20 | NUR ---
PATIENT IN BED. CALL LIGHT IN REACH. NO FURTHER NEEDS AT THIS TIME.
--- NOTE | 2017-11-22 18:48 | NUR ---
PT A&O X3, RESPONDS APPROPRIATELY, VERBALIZATIONS CLEAR, BILATERAL UPPER/LOWER EXTREMITIES EQUAL STRENGTH, DENIES N/T. RHYTHM REGULAR, BEACH EXPERT LESS THAN 3 SECONDS, PERIPHERAL PULSES PALPABLE +2, TELE. RESPIRATIONS EVEN AND UNLABORED, LUNGS CLEAR THROUGHOUT, NO COUGH, ABD SOFT, NONDISTENDED WITH ACTIVE BOWEL TONES X4, TOLERATING 1800 ADA DIET, DENIES NAUSEA. SBA WITH NO LIGHTHEADNESS AND STEADY GAIT. SKIN W/D/I. RIGHT HAND IV WNL AND INFUSING NS AT 125 ML/HR.
--- NOTE | 2017-11-22 19:49 | NUR ---
RECEIVED REPORT FROM DAY SHIFT RN. PATIENT IS UP TO THE RESTROOM. NO NEEDS NOTED. ECONOMIC ADVISER IN THE ROOM.
--- NOTE | 2017-11-22 20:35 | NUR ---
PATIENT ASSESMENT COMPLETED. PATIENTS EVENING MEDICATIONS GIVEN PER ORDER. PATIENT DENIES ANY PAIN AT THIS TIME. PATIENT EXPRESSES CONCERN ABOUT HIS SCHEDULED CHEMO MEDICATION. PATIENT WOULD LIKE US TO PLACE A CALL TO HIS AND ASK HER TO BRING IT. PLACED A CALL TO HIS PER PATIENT REQUEST AND SHE STATED SHE WILL BRING IT IN.
--- NOTE | 2017-11-22 21:10 | NUR ---
PATIENTS BROUGHT MEDICATION PER REQUEST. PLACED CALL TO DR. MITCHELL TO RECEIVE VERBAL ORDER TO PLACE MEDICAITON ON PATIENTS ORDERS. RECEIVED VERBAL ORDERS TO GIVE MEDICATION ORDERED ON BOTTLE. VERIFIED ORDER USING THE REDBACK METHOD.
--- NOTE | 2017-11-22 22:10 | NUR ---
PATIENTS HOME CHEMO MEDICATION GIVEN PER ORDER. PATIENT DENIES ANY FURTHER NEEDS AT THIS TIME. CALL LIGHT IN REACH.
--- NOTE | 2017-11-22 23:41 | NUR ---
PATIENT ASSISTED TO THE RESTROOM BY CLAIM REP. PATIENT IS NOW BACK IN BED RESTING. PATIENT TOOK COCHLEAR ATTACHMENTS OFF. PATIENT STATED "IF YOU NEED ME JUST TAP ME". NO FURTHER NEEDS NOTED. CALL LIGHT IN REACH.
--- NOTE | 2017-11-23 01:32 | NUR ---
PATIENTS VITALS TAKEN AND RECORDED WITH INFECTIOUS DISEASE PHYSICIAN. PATIENT ASSISTED TO THE RESTROOM BY INFECTIOUS DISEASE PHYSICIAN. PATIENT WAS ABLE TO VOID. PATIENT IS BACK IN BED RESTING. IV INFUSING. PATIENT DENIES ANY NEEDS. CALL LIGHT IN REACH.
--- NOTE | 2017-11-23 03:55 | NUR ---
PATIENT IS RESTING IN BED WITH EYES CLOSED, RR 17. CALL LIGHT IN REACH.
--- NOTE | 2017-11-23 05:29 | NUR ---
PATIENT RESTED WELL THROUGHOUT THE SHIFT. PATIENT IS ON AN ADA DIET AND TOELRATING IT WELL, NO NAUSEA NOTED. PATIENT IS ON TELE #2, SR, HR IN THE 70'S. PATIENT HAS ORHTOSTATICS ORDERED BID. PATIENT HAS COCHLEAR IMPLANTS. PATIENT IS A SBA AND IS STEADY ON HIS FEET. PATIENT HAS IV INFUSING. PATIENT IS AAOX3 AND USES CALL LIGHT APPROPRIATELY.
--- NOTE | 2017-11-23 05:35 | NUR ---
PATIENTS VITALS TAKEN AND RECORDED BY [employer] SECURITY CONSULTANT. PATIENT ASSISTED TO THE RESTROOM A SBA. PATIENT IS STEADY ON HIS FEET. PATIENT WAS ABLE TO VOID. PATIENT IS NOW BACK IN BED RESTING. PATIENT DENIES ANY NEEDS AT THIS TIME. CALL LIGHT IN REACH.
--- NOTE | 2017-11-23 08:01 | NUR ---
patient sitting up in bed. orthostatic vitals done. no dizziness or light headedness present. bs 78. apple juice and breakfast at bedside.
--- NOTE | 2017-11-23 08:06 | NUR ---
PATIENT RESTING IN BED WAITING FOR BREAKFAST. CALL LIGHT IN REACH. NO FURTHER NEEDS AT THIS TIME.
--- NOTE | 2017-11-23 09:14 | NUR ---
PATIENT BACK TO BED FROM BATHROOM, SBA. CLEAN LINENS PROVIDED. FRESHWATER GIVEN. CALL LIGHT IN REACH. NO FURTHER NEEDS AT THIS TIME.
--- NOTE | 2017-11-23 09:39 | NUR ---
PATIENT STATING THAT HE WOULD LIKE TO HOLD OFF ON AT HOME MEDICATION ( ORAL CHEMO). PATIENT REPORTS THAT HE HAD IT LATE LAST NIGHT AND NEEDS TO WAIT. TOLERATED BREAKFAST. READING AT BEDSIDE AT THIS TIME.
--- NOTE | 2017-11-23 10:35 | NUR ---
LACING STRING CUTTER IN ROOM.
--- NOTE | 2017-11-23 11:19 | NUR ---
echo complete. ca medication given. awaiting lunch at this time.
--- NOTE | 2017-11-23 12:31 | NUR ---
DR. MITCHELL ROUNDED IN ROOM. PLAN TO DISCHARE PATIENT. FOWARD ECHO RESULTS TO PCP. PLAN FOR FOLLOW UP APPOINTMENT WITH PCP.
--- NOTE | 2017-11-23 12:52 | NUR ---
PHARMACY IN ROOM TO GO OVER DISCHARGE MEDICATIONS.
--- NOTE | 2017-11-23 14:37 | NUR ---
PT RATHER QUIET HE WATCHED TV. HE SAID HE FELT FINE, DIDNOT SEEM TO WANT TO ENGAGE MUCH. EXTENDED A BLESSING, PT LATER DC'D
== END 2017-11-23 13:18 | disposition home or self-care (01) ==
LOC: ED 10:53 → MS 10:55
PROVIDERS: ADMIT Internal Medicine
DX: E86.0 Dehydration (principal); I95.1 Orthostatic hypotension; T50.2X5A Adverse effect of carbonic-anhydrase inhibitors, benzothiadiazides and other diuretics, initial encounter; T38.3X5A Adverse effect of insulin and oral hypoglycemic [antidiabetic] drugs, initial encounter; E11.9 Type 2 diabetes mellitus without complications; I10 Essential (primary) hypertension; K21.9 Gastro-esophageal reflux disease without esophagitis; E78.5 Hyperlipidemia, unspecified; C64.9 Malignant neoplasm of unspecified kidney, except renal pelvis; C78.7 Secondary malignant neoplasm of liver and intrahepatic bile duct; C78.00 Secondary malignant neoplasm of unspecified lung; Z90.5 Acquired absence of kidney; R13.10 Dysphagia, unspecified; Z79.4 Long term (current) use of insulin; Z79.899 Other long term (current) drug therapy; Z96.21 Cochlear implant status
CPT/HCPCS: 36415; 70450; 71045; 80053; 81001; 83605; 85025; 93005; 93010; 93306; 96360; 96361; 99285; G0378; J1815; J7030; J7040

== ENCOUNTER 2018-04-24 13:02 | Emergency (ER) | payer MEDICARE, BC ==
[~2018-04-24] VITALS: Ht 167.6 cm; Wt 78.5 kg
[2018-04-24] MEDS ORDERED: OLMESARTAN-HCT1 EACH PO (13:51)
[2018-04-24] MEDS ORDERED: SUTENT50 MG PO (13:51)
[2018-04-24] MEDS ORDERED: SIMVASTATIN40 MG PO (13:51)
== END 2018-04-24 15:40 | disposition home or self-care (01) ==
LOC: ED 13:02
DX: C71.9 Malignant neoplasm of brain, unspecified (principal); C34.90 Malignant neoplasm of unspecified part of unspecified bronchus or lung; C22.8 Malignant neoplasm of liver, primary, unspecified as to type; C06.9 Malignant neoplasm of mouth, unspecified; E11.9 Type 2 diabetes mellitus without complications; I10 Essential (primary) hypertension; E78.00 Pure hypercholesterolemia, unspecified; K21.9 Gastro-esophageal reflux disease without esophagitis; Z79.899 Other long term (current) drug therapy; Z79.4 Long term (current) use of insulin
CPT/HCPCS: 70450; 99283-25

== ENCOUNTER 2020-05-13 17:03 | Emergency (ER) | payer MEDICARE, BC ==
[~2020-05-13] VITALS: Ht 170.2 cm; Wt 80.7 kg
[~2020-05-13 17:03] MED LIST changes: +OLMESARTAN-HCT1 EACH PO; +SUTENT50 MG PO
[2020-05-13] MEDS ORDERED: CALCITRIOL0.25 MCG PO (17:19)
[2020-05-13] MEDS ORDERED: METOPROLOL SUCC50 MG PO (17:19)
[2020-05-13] MEDS ORDERED: FUROSEMIDE20 MG PO (17:20)
--- NOTE | 2020-05-14 07:26 | EKG ---
[facility] [address] [facility] [place] [address] Signed Normal sinus rhythm Incomplete right bundle branch block Borderline ECG When compared with ECG of 22-NOV-2017 11:05, Incomplete right bundle branch block is now present Confirmed by MARINA MITCHELL MD ([id number]) on 05/14/2020 7:26:05 AM Electronically Signed By: MARINA MITCHELL MD 05/14/20 0726 PATIENT NAME: ELICEO POST Electrocardiogram DATE OF : 47 PHYSICIAN: MARINA MITCHELL MD REPORT #: [id number] REPORT IS CONFIDENTIAL AND NOT TO BE RELEASED WITHOUT AUTHORIZATION
== END 2020-05-13 19:38 | disposition home or self-care (01) ==
LOC: ED 17:03
DX: N19 Unspecified kidney failure (principal); E87.5 Hyperkalemia; E11.9 Type 2 diabetes mellitus without complications; I10 Essential (primary) hypertension; E78.00 Pure hypercholesterolemia, unspecified; K21.9 Gastro-esophageal reflux disease without esophagitis; Z79.899 Other long term (current) drug therapy; Z85.05 Personal history of malignant neoplasm of liver; Z85.118 Personal history of other malignant neoplasm of bronchus and lung; Z79.4 Long term (current) use of insulin
CPT/HCPCS: 80053; 82550; 85025; 93005; 93010; 99285-25; C9803; U0003